=== PATIENT | female | born 1965 | race Caucasian/White ===

== ENCOUNTER → 2017-08-03 16:57 | Outpatient (CLI) | payer BC, SELFPAY | PROVIDERS: Family Provider Family Medicine; PCP Family Medicine; Visit Provider Family Medicine | DX: N39.0 Urinary tract infection, site not specified (principal) | CPT/HCPCS: 87077; 87086; 87088; 87186 ==

== ENCOUNTER → 2017-08-09 12:23 | Outpatient (CLI) | payer BC, SELFPAY ==
[2017-08-09 14:28] LABS: Erythrocyte Sedimentation Rate 6 mm/hr (0-30)
[2017-08-09 14:32] LABS: Absolute Lymphocyte Count 2.48 X10^3/ul (0.83-4.51); Absolute Neutrophil Count 3.8 X10^3/uL (2.0-7.7); Basophil# 0.04 X10^3/uL; Basophil% 0.6 % (0-1); CRP < 2.90 mg/L (0.0-3.0); Eosinophil# 0.15 X10^3/uL; Eosinophils% 2.1 % (0-5); Lymphocyte # 2.48 X10^3/ul (4.0); Lymphocyte % 34.9 % (19-41); Mean Corp Hgb Conc 32.4 g/gl (32-36); Mean Corpuscular Volume 95.6 fL (81-99); Mean Platelet Vol. 9.8 fl (6.2-12.0); Monocyte# 0.64 X10^3/uL; Neutrophil # 3.78 X10^3/uL (2.7-7.7); Neutrophil % 53.3 % (47-70); Platelet Count 313 K/mm3 (150-450); RBC Distribution Width CV 12.8 % (11.6-14.6); RBC Distribution Width SD 43.1 fl (35.1-43.9); Red Blood Count 3.87 M/mm3 (4.2-5.4); White Blood Count 7.1 K/mm3 (4.4-11.0)
[2017-08-09 14:34] LABS: POSITIVE COUNT NO; POSITIVE DIFFERENTIAL NO; POSITIVE MORPHOLOGY NO
--- NOTE | 2017-08-09 16:30 | RAD_ITS ---
STUDY: X-RAY - LEFT KNEE REASON FOR EXAM: Female, 51 years old. Pain. TECHNIQUE: 2 view(s) of the knee. COMPARISON: None. FINDINGS: Normal visualized distal femur. Normal visualized proximal tibia and fibula. Normal proximal tibiofibular articulation. There is no demonstrated fracture. Normal medial femorotibial compartment. Normal lateral femorotibial compartment. Normal patellofemoral articulation. There is no demonstrated joint effusion. The soft tissue structures are unremarkable. RAD/Knee 1 or 2 Views IMPRESSION: Negative limited 2 view study of the knee. Electronically Signed: Samuel Loza MD at 23:08 EST , Service support ,
== END ==
PROVIDERS: Family Provider Family Medicine; PCP Family Medicine; Visit Provider Family Medicine
DX: A02.9 Salmonella infection, unspecified (principal); M89.8X6 Other specified disorders of bone, lower leg
CPT/HCPCS: 36415; 73560; 85025; 85652; 86140

== ENCOUNTER → 2017-09-07 14:02 | Outpatient (CLI) | payer BC, SELFPAY | PROVIDERS: Visit Provider Family Medicine | DX: N39.0 Urinary tract infection, site not specified (principal) | CPT/HCPCS: 87086; 87088 ==

== ENCOUNTER 2017-11-01 16:14 | Emergency (ER) | payer BC, OTHER, SELFPAY ==
[2017-11-01 16:15] VITALS: BP 103/71; PULSE 77; RESP 16; TEMP 36.8; O2SAT 96; BMI 26.6
[2017-11-01 16:19] VITALS: O2SAT 94
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
[2017-11-01] MEDS: Ondansetron ODT 4 MG Tablet PO (16:46)
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
[2017-11-01] MEDS: Ibuprofen 600 MG Tablet PO (18:06)
[2017-11-01 18:08] VITALS: BP 104/79; PULSE 71; RESP 18; O2SAT 97
== END 2017-11-01 18:10 | disposition home or self-care (01) ==
LOC: ED 17:26
PROVIDERS: Emergency Provider Emergency Medicine; Family Provider Family Medicine; PCP Family Medicine
DX: S16.1XXA Strain of muscle, fascia and tendon at neck level, initial encounter (principal); V43.52XA Car driver injured in collision with other type car in traffic accident, initial encounter; Y93.9 Activity, unspecified; Y92.410 Unspecified street and highway as the place of occurrence of the external cause; Y99.9 Unspecified external cause status
CPT/HCPCS: 72040; 99285

== ENCOUNTER → 2018-06-15 07:53 | Outpatient (CLI) | payer MEDICAID, SELFPAY ==
--- NOTE | 2018-06-15 08:01 | BI_ITS ---
MAMMOGRAPHY - BILATERAL SCREENING REASON FOR EXAM: Female, 52 years old. Routine annual screening examination. PERTINENT HISTORY: Grandmother with breast cancer. TECHNIQUE: Digital bilateral breast nanette (3D mammographic acquisition) in the CC and MLO projections. 2-D mediolateral oblique (MLO) and craniocaudad (CC) views of both breasts were obtained. CAD: Full Field Digital Mammography with Computer Added Detection was performed. COMPARISON: Comparison is made with prior study dated May 15, 2017 and January 21, 2016. FINDINGS: Breast Composition: The breasts are heterogeneously dense, which may obscure small masses. There are no dominant masses or suspicious calcifications. Stable small bilateral axillary lymph nodes. No other significant abnormalities are identified. There has been no significant change since the prior study. BI/SCREENING MAMM (CAD), BILAT IMPRESSION: Stable bilateral screening mammogram. Yearly follow-up mammogram recommended. (A) ASSESSMENT CATEGORY: BIRADS Category 2: Benign. A letter regarding these results will be sent to the patient by the facility within 30 days. Approximately 10% of breast cancers are not detected by mammography. A normal mammogram should not delay biopsy of a clinically suspicious abnormality. [id number] Electronically Signed: Jose Raul Willard MD at 9:35 EST Tel [phone], Service support ,
== END ==
PROVIDERS: Family Provider Family Medicine; PCP Family Medicine; Referring Provider Obstetrics & Gynecology; Visit Provider Obstetrics & Gynecology
DX: Z12.31 Encounter for screening mammogram for malignant neoplasm of breast (principal)
CPT/HCPCS: 77063; 77067

== ENCOUNTER → 2018-09-17 | Outpatient (CLI) | payer OTHER, SELFPAY ==
[2018-09-17 17:36] LABS: Absolute Neutrophil Count 2.9 X10^3/uL (2.0-7.7); Basophil# 0.03 X10^3/uL; Basophil% 0.5 % (0-1); Eosinophil# 0.15 X10^3/uL; Eosinophils% 2.3 % (0-5); Hematocrit 36.3 % (37-47); Hemoglobin 11.8 g/dl (12.0-15.0); Lymphocyte % 42.3 % (19-41); Mean Corp Hgb Conc 32.5 g/gl (32-36); Mean Corpuscular Volume 92.4 fL (81-99); Mean Platelet Vol. 9.2 fl (6.2-12.0); Monocyte# 0.63 X10^3/uL; Monocyte% 9.9 % (0-10); Neutrophil # 2.88 X10^3/uL (2.7-7.7); Platelet Count 241 K/mm3 (150-450); RBC Distribution Width CV 12.2 % (11.6-14.6); RBC Distribution Width SD 40.4 fl (35.1-43.9); Red Blood Count 3.93 M/mm3 (4.2-5.4); White Blood Count 6.4 K/mm3 (4.4-11.0)
[2018-09-17 17:40] LABS: POSITIVE COUNT NO; POSITIVE DIFFERENTIAL NO; POSITIVE MORPHOLOGY NO
[2018-09-17 17:54] LABS: ALB/GLOB Ratio 1.4 RATIO (0.9-2.4); AST(SGOT) 18 U/L (15-37); Alanine Aminotransfer ALT/SGPT 26 U/L (13-56); Alkaline Phosphatase 63 U/L (45-117); Anion Gap 6 (5-15); BUN 15 mg/dL (7-18); BUN/Creat Ratio 20.9 RATIO (10-20); Chloride 108 mmol/L (98-107); Cholesterol 162 mg/dL (200); Creatinine, Serum 0.72 mg/dL (0.55-1.02); EST Glomerular Filtration Rate 91 mL/min (>60); Est Glom Filt Rate - Afr Amer 110 mL/min (>60); Globulin 2.9 g/dL (2.2-4.2); Glucose 95 mg/dL (74-106); High Density Lipoprotein 32 mg/dL; Protein, Total 6.9 g/dL (6.4-8.2); Sodium Level 143 mmol/L (136-145)
== END | disposition home or self-care (01) ==
LOC: MFPLAB 16:41
PROVIDERS: Family Provider Family Medicine; PCP Family Medicine; Visit Provider Family Medicine
DX: Z00.00 Encounter for general adult medical examination without abnormal findings (principal); G43.909 Migraine, unspecified, not intractable, without status migrainosus
CPT/HCPCS: 36415; 80053; 82465; 83718; 85025

== ENCOUNTER 2018-10-03 07:40 | Day surgery (SDC) | payer BC, SELFPAY ==
[2018-10-03] VITALS (7 sets, daily range): BP systolic 103–121; BP diastolic 75–94; PULSE 69–85; RESP 16–19; TEMP 36.4–36.6; O2SAT 92–98; BMI 27.7
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
--- NOTE | 2018-10-03 08:45 | COLBX_PTH ---
PATIENT: JEAN GROSSMAN LOC: EN U#:[id number] AGE/SX: 52/F ROOM: RE10/03/[address]: Dr. Shelia Dominguez MD : 1965 BED: DIS: 10/03/2018 SPEC #: [id number] RECD: 10/03/18 13:37 STATUS: OBDULIA SP #: [id number] MONIKA: 10/03/18 08:[address]: Shelia Dominguez DEPT: SURGICAL PATHOLOGY RECD BY: Ross Gonzalez ENTERED: 10/03/18 13:41 SP TYPE: COLON BX OTHR DR: Dr. Kev Cheng MD Tissues: A - Descending colon B - Descending colon Procedures: Surgery Specimen Level IV HEADER OPERATION: Colonoscopy - open access (MAC) PRE-OP DIAGNOSIS: Screening TISSUE SUBMITTED: A - Proximal descending polyp, B - Biopsy of mid descending polyp MICROSCOPIC DIAGNOSIS A. Proximal descending colon polyp, biopsy: Tubular adenoma. B. Mid descending colon polyp, biopsy: Tubular adenoma. ANGELITO:abdirizak 10/04/18 MICROSCOPIC DESCRIPTION Slides are reviewed. GROSS DESCRIPTION A - Received in fixative is one container labeled with the patient's name and designated proximal descending polyp. The specimen consists of one irregular fragment of light regan soft tissue that measures 0.3 x 0.3 x 0.2 cm. The specimen is totally submitted in one cassette. B - Received in fixative is one container labeled with the patient's name and designated biopsy of mid descending polyp. The specimen consists of one irregular fragment of light regan soft tissue mixed with a small amount of fecal material that measures 0.3 x 0.2 x 0.1 cm. The specimen is totally submitted in one cassette. / ANGELITO:abdirizak 10/03/18 TC:1 CPT: 68856 x2
--- NOTE | 2018-10-03 09:43 | OP.ENDO_ITS ---
10/03/2018 Kev Cheng [address] [place] [address] Re : Colonoscopy procedure for Yumiko Singh Dear Dr. Cheng This procedure was performed on Wednesday, October 03, 2018. My impressions and recommendations are as follows: Impressions : - One 4 to 7 mm polyp in the proximal descending colon, removed with a hot snare. Resected and retrieved. - One less than 5 mm polyp in the mid descending colon, removed with a cold biopsy forceps. Resected and retrieved. Recommendations : - Discharge patient to home. - High fiber diet. - Continue present medications. - Await pathology results. - Repeat colonoscopy in 1 year because the bowel preparation was poor. Recommend 2 day prep- magnesium citrate first day and then miralax dulcolax split prep the second with 2 days of clears. My findings are described in the full procedure note, which is enclosed. If I can be of further assistance, please feel free to contact me at Doctor phone number(s): , Work: . Sincerely, MD Shelia Garrett MD 10/03/2018 9:43:03 AM This report has been signed electronically.
== END 2018-10-03 10:24 | disposition home or self-care (01) ==
LOC: EN 07:40 → AC 07:41
PROVIDERS: Family Provider Family Medicine; PCP Family Medicine; Referring Provider Surgery; Visit Provider Surgery
PROC: 0DJD8ZZ Inspection of Lower Intestinal Tract, Via Natural or Artificial Opening Endoscopic (ICD-10-PCS; CPT 45378; principal; 2018-10-03 08:40)
DX: Z12.11 Encounter for screening for malignant neoplasm of colon (principal); D12.4 Benign neoplasm of descending colon
CPT/HCPCS: 45380; 45385; 88305; J7120; J2405

== ENCOUNTER 2018-10-31 15:30 | Outpatient (RCR) | payer BC, SELFPAY ==
[2018-10-03 07:59] VITALS: BMI 27.7
--- NOTE | 2018-10-04 09:17 | HP.PTEVAL ---
Patient's Visit Information JEAN GROSSMAN is a 52 year old F referred to Physical Therapy by Kev Cheng MD with a diagnosis of PLANTARFASCITIS. Date of Evaluation: 10/04/18 Physical Therapist: Zoltan Canchola PT, Cert MDT, OCS - Visit Plan Frequency: 2x /Week Duration: 4 Weeks Plan: INTERVENTIONS TO INCLUDE MANUAL THERAPY STM/HAWK TO PF,STICK ROLL CALF,US /CP. STRETCHING - Subjective Findings: This 52 y/o female presnets to physical therapy with with plantar fascitis right worse than left. Patient symptoms where inscidous onset 6 months ago . Symptom became more constant located on planta calcaeous. Patient seen DR recommended PT . Also patient purchused over counter orthotics . Aggravating factors in morning barefeet,standing,extending walking. Allevating factors orthotics help some. Denioes parathesia/tingling. No x-rays.Patient symptoms affects QOL and function. 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 SOCIAL: - Pain Right Foot Pain Intensity (Out of 10): 7 Pain Intensity Range: 10 Left Foot Pain Intensity (Out of 10): 4 Pain Intensity Range: 10 - Objective POSTURE: frontal plane mechanics WFL. PALPATION: tender calcaneal insertion and plantarfascia,G-S. GAIT: normal tucker. NEURO: intact. AROM: dorsiflexion 0 degrees,plantarflexion 65 degrees,inversion 40 degrees,eversion 10 degrees,. MMT: DF/PF,EV/IN 4/5. G-S FLEXABLITY: mild/mod tight - Goals Goal 1:: Independant with HEP Goal Time Frame: 4-6 Weeks Goal 2:: Decrease pain by 70% or greater to improve gait. Goal Time Frame: 4-6 Weeks Goal 3:: Noramilize gait without pain Goal Time Frame: 4-6 Weeks Goal 4:: Improve LFES sore by 8-10 points to improve QOL. Goal Time Frame: 4-6 Weeks Goal 5:: Patuient be able to perform ADL's and job demands with jeffrey limitations Goal Time Frame: 4-6 Weeks - Rehabilitation Potential Physical Therapy Diagnosis: This patient has bilateral plantarfascia pain right worse than with tenderness ,tightness calf/plantarsacia affects walking/standing impairs housework/job. Rehabilitation Potential: Good - Anticipated Interventions Patient/Client Instruction: Educate patient on: Condition, Plan of Care For the Purpose of:: To decrease pain, To increase ROM, To improve muscle performance and motor function, To improve ability to perform ADL's, To increase tolerance to activity/condition/position, To improve ability of physical actions for home/community/work/leisure, To improve health of tissue, To decrease soft tissue restriction, To increase flexibility/ROM, To improve ability to perform tasks related to life management Therapeutic Exercise to Include: Strength training, Flexibilty training, Passive ROM, Active ROM Comment: FOOT For the Purpose of:: To decrease pain, To increase ROM, To improve nutrient delivery to tissue, To increase oxygenation perfusion, To improve muscle performance and motor function, To increase tolerance to activity/condition/position, To improve ability of physical actions for home/community/work/leisure, To improve gait and locomotor functions, To improve health of tissue, To decrease soft tissue restriction, To increase flexibility/ROM Manual Therapy Techniques to Include: Mobilization, Soft tissue mobilization Comment: PLANTAR FASCIA For the Purpose of:: To decrease pain, To increase ROM, To improve muscle performance and motor function, To increase tolerance to activity/condition/position, To improve ability of physical actions for home/community/work/leisure, To improve health of tissue, To decrease soft tissue restriction, To increase flexibility/ROM, To improve ability to perform tasks related to life management TENS: Yes IF ES: Yes Thermo therapy (hot pack): Yes Ultrasound (thermal/non thermal): Yes For the Purpose of:: To decrease pain, To increase ROM, To improve muscle performance and motor function, To increase tolerance to activity/condition/position, To improve ability of physical actions for home/community/work/leisure, To improve gait and locomotor functions, To improve health of tissue, To decrease soft tissue restriction Thank you for the opportunity to evaluate your patient. For Medicare and Medicare HMO plans, please review the plan of care and approve it. It will need to be FAXED BACK to us at [phone] for Medicare purposes. For Medicare only, by signing this I certify the plan of care. Please let me know if there are questions or concerns regarding this plan of care. Physician Signature: Date:
--- NOTE | 2019-01-01 09:12 | HP.PTDCSUM ---
HP - PT D/C Summary It has been my pleasure to treat JEAN GROSSMAN under orders from Kev Cheng MD, for the diagnosis of PLANTARFASCITIS for a total of 7 visit(s). Discharge Date: Please see the following information for a summary of their discharge status. - Subjective Subjective: Not much better pain is about the same - Pain Right Foot Pain Intensity (Out of 10): 8 Left Foot Pain Intensity (Out of 10): 6 - Overall Improvement % Improvement: 50 - Objective Objective/Function: POSTURE: WFL. PALAPTION: plantrfascia right > than left. GAIT: mild decrease stance time. MMT:4/5. AROM: WFL - Goals Goal 1:: Independant with HEP Goal 2:: Decrease pain by 70% or greater to improve gait. Goal 3:: Noramilize gait without pain Goal 4:: Improve LFES sore by 8-10 points to improve QOL. Goal 5:: Patuient be able to perform ADL's and job demands with jeffrey limitations - Plan Plan: RTD - D/C Information If there are questions or concerns regarding this patient's physical therapy, please feel free to call me at [phone]. Thank you for the referral of this patient. Sincerely, Zoltan Canchola, PT, Cert MDT, OCS
--- NOTE | 2019-01-01 09:14 | HP.PTDCSUM ---
HP - PT D/C Summary It has been my pleasure to treat JEAN GROSSMAN under orders from Kev Cheng MD, for the diagnosis of PLANTARFASCITIS for a total of 7 visit(s). Discharge Date: Please see the following information for a summary of their discharge status. - Subjective Subjective: Not much better pain is about the same - Pain Right Foot Pain Intensity (Out of 10): 8 Left Foot Pain Intensity (Out of 10): 6 - Objective Objective/Function: POSTURE: WFL. PALAPTION: plantrfascia right > than left. GAIT: mild decrease stance time. MMT:4/5. AROM: WFL - Goals Goal 1:: Independant with HEP Goal 2:: Decrease pain by 70% or greater to improve gait. Goal 3:: Noramilize gait without pain Goal 4:: Improve LFES sore by 8-10 points to improve QOL. Goal 5:: Patuient be able to perform ADL's and job demands with jeffrey limitations - Plan Plan: RTD - D/C Information If there are questions or concerns regarding this patient's physical therapy, please feel free to call me at [phone]. Thank you for the referral of this patient. Sincerely, Zoltan Canchola, PT, Cert MDT, OCS
== END 2018-10-31 19:00 | disposition home or self-care (01) ==
LOC: PT 15:30
PROVIDERS: Family Provider Family Medicine; PCP Family Medicine; Visit Provider Family Medicine
DX: M72.2 Plantar fascial fibromatosis (principal)
CPT/HCPCS: 97035; 97110; 97140; 97162

== ENCOUNTER → 2019-02-26 16:57 | Outpatient (CLI) | payer BC, SELFPAY ==
[2018-12-04 08:35] VITALS: BMI 27.3
--- NOTE | 2019-02-26 17:30 | MRI_ITS ---
STUDY: MRI BRAIN WITHOUT CONTRAST REASON FOR EXAM: Female, 53 years old. Migraines. Left eye pressure and pain. TECHNIQUE: Standardized multiplanar fat and water weighted pulse sequences were obtained. COMPARISON: 08/28/2014 MRI brain. FINDINGS: Normal size of the ventricles and extra-axial spaces for the patient's age. Normal white matter tracts of the supratentorial brain. Normal bilateral basal ganglia. Normal thalami. There is no extra-axial fluid accumulation. Normal flow voids within the major intracranial circulation suggesting patency by spin echo criteria. Normal sella turcica, pituitary gland, infundibular stalk, optic chiasm and hypothalamus. Normal tectal plate and pineal gland. Normal midbrain, gin and medulla. Normal cerebellum. Normal basal cisterns. Fluid signal in the left mastoid air cells, slightly decreased compared to the previous MRI. Normal bilateral internal auditory canals. No demonstrated orbital abnormality, within the constraints of a routine brain study. Mild mucosal thickening medial aspect right frontal sinus. No paranasal sinus air-fluid levels. Paranasal sinuses otherwise patent. Normal calvarium and skull base. Normal visualized soft tissue structures. Normal visualized upper cervical spine. MRI/Brain without Contrast IMPRESSION: Normal noncontrast MRI appearance of the brain. Chronic versus recurrent left mastoid opacification, decreased compared to prior. Please correlate for tenderness etc. Electronically Signed: Ilya Brandt, at 21:09 EDT Tel , Service support ,
== END ==
PROVIDERS: Family Provider Family Medicine; PCP Family Medicine; Referring Provider Psychiatry & Neurology Neurology; Visit Provider Psychiatry & Neurology Neurology
DX: G43.719 Chronic migraine without aura, intractable, without status migrainosus (principal)
CPT/HCPCS: 70551

== ENCOUNTER → 2019-03-15 15:40 | Outpatient (CLI) | payer BC, SELFPAY ==
[2018-12-04 08:35] VITALS: BMI 27.3
[2019-03-15 18:00] LABS: Anion Gap 9 (5-15); BUN 21 mg/dL (7-18); BUN/Creat Ratio 22.1 RATIO (10-20); Calcium,Total 8.7 mg/dL (8.5-10.1); Chloride 107 mmol/L (98-107); Creatinine, Serum 0.95 mg/dL (0.55-1.02); EST Glomerular Filtration Rate 65 mL/min (>60); Est Glom Filt Rate - Afr Amer 79 mL/min (>60); Glucose 123 mg/dL (74-106); Magnesium 2.1 mg/dL (1.6-2.6); Potassium 3.9 mmol/L (3.5-5.1); Sodium Level 141 mmol/L (136-145)
[2019-03-18 16:41] LABS: Ferritin 24 ng/mL (8-252)
== END ==
PROVIDERS: Family Provider Family Medicine; PCP Family Medicine; Referring Provider Family Medicine; Visit Provider Family Medicine
DX: R25.2 Cramp and spasm (principal)
CPT/HCPCS: 36415; 80048; 82728; 83735

== ENCOUNTER → 2019-07-08 16:19 | Outpatient (CLI) | payer BC, SELFPAY ==
[2019-07-08 15:33] VITALS: BMI 27.3
[2019-07-08 16:30] LABS: Mucous, Urine 0 SEEN /hpf (<or=2+); Red Blood Cells-Urine 0 SEEN /hpf (0-5)
[2019-07-08 18:30] LABS: Color, Urine Yellow (Yellow); Glucose, Dipstick Normal (Normal); Ketone-Dipstick Negative (Negative); Leukocyte Esterase-Dipstick 500 /ul (Negative); Nitrite-Dipstick Negative (Negative); Occult Blood-Urine 10 /ul (Negative); Protein-Dipstick Negative (Negative); Urine Bilirubin Dipstick Negative (Negative); Urine Clarity Clear (Clear); Urine Urobilinogen Normal (Normal)
[2019-07-08 18:42] LABS: Bacteria 1+ /hpf (None Seen); Squamous Epithelial Cells - UA 5-10 SEEN /hpf (5-10); White Blood Cells 10-25 SEEN /hpf (0-5)
== END ==
PROVIDERS: PCP Family Medicine; Referring Provider Family Medicine; Visit Provider Family Medicine
DX: R93.9 Diagnostic imaging inconclusive due to excess body fat of patient (principal)
CPT/HCPCS: 81001; 87086; 87088; 87186

== ENCOUNTER → 2019-07-29 09:30 | Outpatient (CLI) | payer BC, SELFPAY ==
[2019-07-08 15:33] VITALS: BMI 27.3
--- NOTE | 2019-07-29 09:34 | BI_ITS ---
MAMMOGRAPHY - BILATERAL DIAGNOSTIC REASON FOR EXAM: Female, 53 years old. Left breast pain at the 3:00 area. PERTINENT HISTORY: Non-contributory. TECHNIQUE: Digital bilateral breast nanette (3D mammographic acquisition) in the CC and MLO projections. 2-D mediolateral oblique (MLO) and craniocaudad (CC) views of both breasts were obtained. CAD: Full Field Digital Mammography with Computer Added Detection was performed. COMPARISON: Comparison is made with prior examination dated June 15, 2018 and May 15, 2017. FINDINGS: Breast Composition: The breasts are heterogeneously dense, which may obscure small masses. There are no dominant masses or suspicious calcifications. Stable bilateral benign-appearing axillary lymph nodes. No other significant abnormalities are identified. There has been no significant change since the prior study. BI/DIAG MAMM W/CAD, BILAT IMPRESSION: Stable bilateral diagnostic mammogram. With the patient''s history of left breast pain at the 3:00 position, correlation with ultrasound is recommended. ASSESSMENT CATEGORY: BIRADS Category 0: Incomplete. Need additional imaging evaluation. A letter regarding these results will be sent to the patient by the facility within 30 days. Approximately 10% of breast cancers are not detected by mammography. A normal mammogram should not delay biopsy of a clinically suspicious abnormality. Electronically Signed: Jose Raul Willard, at 10:37 EST , Service support ,
--- NOTE | 2019-07-29 09:34 | US_ITS ---
STUDY: ULTRASOUND BREAST - LEFT REASON FOR EXAM: Female, 53 years old. Left breast pain and possible mass. TECHNIQUE: Axial and longitudinal images of the LEFT breast were performed with a high resolution ultrasound transducer. # OF IMAGES: 32 COMPARISON: Comparison is made with prior mammogram done earlier in the day. FINDINGS: LEFT Breast: There is an 8 mm x 8 mm x 5 mm benign appearing lymph node at the 1:00 position breast at 20 cm from nipple adjacent to the axilla. US/Breast Limited Unilateral IMPRESSION: Findings in keeping with an 8mm by 8mm by 5 mm benign lymph node in the axillary region of the breast. ASSESSMENT CATEGORY: BIRADS Category 2: Benign. A letter regarding these results will be sent to the patient by the facility within 30 days. Electronically Signed: Jose Raul Willard, at 15:48 EST , Service support ,
== END ==
PROVIDERS: PCP Family Medicine; Referring Provider Obstetrics & Gynecology; Visit Provider Obstetrics & Gynecology
DX: N63.20 Unspecified lump in the left breast, unspecified quadrant (principal)
CPT/HCPCS: 76642; 77062; 77066; G0279

== ENCOUNTER 2019-12-11 08:21 | Day surgery (SDC) | payer BC, SELFPAY ==
[2019-08-07 09:11] VITALS: BMI 27.3
[2019-12-11] VITALS (8 sets, daily range): BP systolic 84–112; BP diastolic 61–85; PULSE 56–72; RESP 16; TEMP 36.1–36.2; O2SAT 97–100; BMI 29.2
--- NOTE | 2019-12-11 | GASB_PTH ---
PATIENT: JEAN GROSSMAN LOC: EN U#:[id number] AGE/SX: 54/F ROOM: RE12/11/[address]: Dr. Shelia Dominguez MD : 1965 BED: DIS: 12/11/2019 SPEC #: [id number] RECD: 12/11/19 12:16 STATUS: OBDULIA SP #: [id number] MONIKA: 12/11/19 00:[address]: Shelia Dominguez DEPT: SURGICAL PATHOLOGY RECD BY: Cleveland Obrien ENTERED: 12/11/19 12:17 SP TYPE: Gastric Bx OTHR DR: Dr. Kev Cheng MD Tissues: A - Gastric mucous membrane B - Gastric mucous membrane C - Gastric mucous membrane D - Cecum, NOS E - Descending colon Procedures: Special Stain Group II Surgery Specimen Level IV Alcian Blue/PAS (control) HEADER OPERATION: Colonoscopy, EGD - open access (MAC) PRE-OP DIAGNOSIS: Colon CA, GERD TISSUE SUBMITTED: A - Antrum biopsy for histo and H. pylori, B - Gastric body biopsy for Histo and H. pylori, C - GE junction biopsy, D - Ileocecal valve biopsy, E - Descending colon polyp at 55 cm MICROSCOPIC DIAGNOSIS A. Antrum, biopsy: Mild gastritis. See microscopic description and comment. B. Gastric body, biopsy: Mild gastritis. See microscopic description and comment. C. GE junction, biopsy: A fragment of gastric mucosa with mild chronic inflammation. Intestinal metaplasia (goblet cell metaplasia) is not identified. See comment. D. Ileocecal valve, biopsy: A fragment of colonic mucosa, no pathologic diagnosis. E. Descending colon polyp, biopsy: Fragments of tubular adenoma. SJ:abdirizak 12/12/19 COMMENT A & B. The results of immunohistochemistry for Helicobacter pylori will be reported separately ([id number]). C. Alcian blue/PAS stain with matched control is used in the evaluation of the specimen. MICROSCOPIC DESCRIPTION Slides are reviewed. A & B. The specimen shows fragments of gastric mucosa with chronic inflammatory cell infiltrates in the lamina propria consisting of lymphocytes and plasma cells, consistent with mild chronic gastritis. GROSS DESCRIPTION A - Received in fixative is one container labeled with the patient's name and designated antrum biopsy. The specimen consists of one irregular fragment of light regan soft tissue that measures 0.5 x 0.3 x 0.1 cm. The specimen is totally submitted in one cassette. B - Received in fixative is one container labeled with the patient's name and designated gastric biopsy. The specimen consists of multiple irregular fragments of light regan soft tissue that in aggregate measure 0.3 x 0.2 x 0.1 cm. The specimen is totally submitted in one cassette. C - Received in fixative is one container labeled with the patient's name and designated GE junction biopsy. The specimen consists of one irregular fragment of light regan soft tissue that measures 0.2 x 0.2 x 0.1 cm. The specimen is totally submitted in one cassette. D - Received in fixative is one container labeled with the patient's name and designated ileocecal valve biopsy. The specimen consists of one irregular fragment of light regan soft tissue that measures 0.2 x 0.2 x 0.1 cm. The specimen is totally submitted in one cassette. E - Received in fixative is one container labeled with the patient's name and designated descending colon polyp. The specimen consists of multiple irregular fragments of light regan soft tissue that in aggregate measure 1 x 0.6 x 0.2 cm. The specimen is totally submitted in one cassette. / AM:abdirizak 12/11/19 TC:1 CPT: 08841 x5, 53307
[2019-12-11] MEDS: Lactated Ringers 1,000 ML 100 ML IV (08:59)
--- NOTE | 2019-12-11 09:30 | IMM_PTH ---
PATIENT: JEAN GROSSMAN LOC: EN U#:[id number] AGE/SX: 54/F ROOM: RE12/11/[address]: Dr. Shelia Dominguez MD : 1965 BED: DIS: 12/11/2019 SPEC #: [id number] RECD: 12/11/19 13:41 STATUS: OBDULIA RESumeet #: [id number] MONIKA: 12/11/19 09:[address]: Shelia Dominguez DEPT: IMMUNOHISTOCHEMISTRY RECD BY: Hanna Boss ENTERED: 12/11/19 13:42 SP TYPE: IMMUNO OTHR DR: Dr. Kev Cheng MD Tissues: A - Stomach, NOS B - Stomach, NOS Procedures: H Pylori (initial) PHYSICIAN & [place] [address] SPECIMEN INFORMATION: Tissue Source: A - Antrum biopsy, B - Gastric body biopsy Clinical Info: Colon CA, GERD Specimen Number: [id number] A & B CPT code: 73792 x2 METHODOLOGY: Deparaffinized sections of prefer/formalin-fixed tissue or PAP/DQ stained slides are incubated with monoclonal/polyclonal antibodies/oligonucleotide probes. Localization is made via biotin free immunoperoxidase method. Appropriate controls are performed and reacted as expected. Results on target cell population are indicated in the following table: RESULTS: ANTIBODY / CLONE RESULT Block A H Pylori (polyclonal) negative Block B H Pylori (polyclonal) negative These tests were developed and their performance characteristics determined by [facility]. They may not have been cleared or approved by the U.S. Food and Drug Administration. The FDA has determined that such clearance or approval is not necessary. The above immunohistochemical/dualISH markers are ordered and reviewed by the Pathologist. INTERPRETATION: A. Antrum, biopsy: Negative for Helicobacter pylori organisms. B. Gastric body, biopsy: Negative for Helicobacter pylori organisms. SJ:abdirizak 12/12/19
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
--- NOTE | 2019-12-11 10:36 | OP.EGD_ITS ---
Patient Name: Yumiko Singh Procedure Date: 12/11/2019 9:40 AM Date of : 1965 Age: 54 Procedure: Upper GI endoscopy Indications: Heartburn Providers: Shelia Dominguez MD Referring MD: Kev Cheng Medicines: Monitored Anesthesia Care Patient Profile: This is a 54 year old female. Complications: No immediate complications. Procedure: Pre-Anesthesia Assessment: - Prior to the procedure, a History and Physical was performed, and patient medications and allergies were reviewed. The patient's tolerance of previous anesthesia was also reviewed. The risks and benefits of the procedure and the sedation options and risks were discussed with the patient. All questions were answered, and informed consent was obtained. Prior Anticoagulants: The patient has taken no previous anticoagulant or antiplatelet agents. ASA Grade Assessment: Per anesthesia. After reviewing the risks and benefits, the patient was deemed in satisfactory condition to undergo the procedure. After obtaining informed consent, the endoscope was passed under direct vision. Throughout the procedure, the patient's blood pressure, pulse, and oxygen saturations were monitored continuously. The gastroscope was introduced through the mouth, and advanced to the second part of duodenum. The upper GI endoscopy was accomplished without difficulty. The patient tolerated the procedure well. Scope In: 9:56:01 AM Scope Out: 10:02:26 AM Total Procedure Duration Time 0 hours 6 minutes 25 seconds Findings: The Z-line was variable and was found 40 cm from the incisors. Biopsies were taken with a cold forceps for histology. A few localized, less than 5 mm non-bleeding erosions were found in the gastric body. There were no stigmata of recent bleeding. Biopsies were taken with a cold forceps for histology. Biopsies were taken with a cold forceps for Helicobacter pylori cultures. Mildly erythematous mucosa without bleeding was found in the gastric antrum. Biopsies were taken with a cold forceps for histology. Biopsies were taken with a cold forceps for Helicobacter pylori cultures. The examined duodenum was normal. The cardia and gastric fundus were normal on retroflexion. Impression: - Z-line variable, 40 cm from the incisors. Biopsied. - Non-bleeding erosive gastropathy. Biopsied. - Erythematous mucosa in the antrum. Biopsied. - Normal examined duodenum. Recommendation: - Await pathology results. - Discharge patient to home. - Resume previous diet. - Use Protonix (pantoprazole) 40 mg PO daily. - Continue present medications. Procedure Code(s): --- Professional --- 10660, Esophagogastroduodenoscopy, flexible, transoral; with biopsy, single or multiple Diagnosis Code(s): --- Professional --- K22.8, Other specified diseases of esophagus K31.89, Other diseases of stomach and duodenum R12, Heartburn CPT copyright 2017 [employer]. All rights reserved. The codes documented in this report are preliminary and upon combination presser review may be revised to meet current compliance requirements. MD Shelia Garrett MD 12/11/2019 10:36:17 AM This report has been signed electronically. Number of Addenda: 0 Note Initiated On: 12/11/2019 9:40 AM
--- NOTE | 2019-12-11 10:36 | OP.CCLET_ITS ---
12/11/2019 Kev Cheng [address] [place] [address] Re : Upper GI endoscopy procedure for Yumiko Singh Dear Dr. Cheng This procedure was performed on Wednesday, December 11, 2019. My impressions and recommendations are as follows: Impressions : - Z-line variable, 40 cm from the incisors. Biopsied. - Non-bleeding erosive gastropathy. Biopsied. - Erythematous mucosa in the antrum. Biopsied. - Normal examined duodenum. Recommendations : - Await pathology results. - Discharge patient to home. - Resume previous diet. - Use Protonix (pantoprazole) 40 mg PO daily. - Continue present medications. My findings are described in the full procedure note, which is enclosed. If I can be of further assistance, please feel free to contact me at Doctor phone number(s): , Work: . Sincerely, MD Shelia Garrett MD 12/11/2019 10:36:17 AM This report has been signed electronically.
--- NOTE | 2019-12-11 10:42 | OP.COLON_ITS ---
Patient Name: Yumiko Singh Procedure Date: 12/11/2019 10:04 AM Date of : 1965 Age: 54 Procedure: Colonoscopy Indications: Screening for colorectal malignant neoplasm Providers: Shelia Dominguez MD Referring MD: Kev Cheng Medicines: Monitored Anesthesia Care Patient Profile: Last Colonoscopy: September 2018--poor prep in descending/sigmoid with solid stool. This is a 54 year old female. Complications: No immediate complications. Procedure: Pre-Anesthesia Assessment: - Prior to the procedure, a History and Physical was performed, and patient medications and allergies were reviewed. The patient's tolerance of previous anesthesia was also reviewed. The risks and benefits of the procedure and the sedation options and risks were discussed with the patient. All questions were answered, and informed consent was obtained. Prior Anticoagulants: The patient has taken no previous anticoagulant or antiplatelet agents. ASA Grade Assessment: Per anesthesia. After reviewing the risks and benefits, the patient was deemed in satisfactory condition to undergo the procedure. After I obtained informed consent, the scope was passed under direct vision. Throughout the procedure, the patient's blood pressure, pulse, and oxygen saturations were monitored continuously. The pediatric colonoscope was introduced through the anus and advanced to the terminal ileum. The colonoscopy was performed without difficulty. The patient tolerated the procedure well. The quality of the bowel preparation was good. Scope In: 10:05:39 AM Scope Withdrawal Time 0 hours 16 minutes 47 seconds Scope Out: 10:31:26 AM Total Procedure Duration Time 0 hours 25 minutes 47 seconds Findings: The perianal and digital rectal examinations were normal. A 5 mm polyp was found in the descending colon. The polyp was semi-pedunculated. The polyp was removed with a hot snare. Resection and retrieval were complete. The terminal ileum appeared normal. A localized area of mildly erythematous mucosa was found at the ileocecal valve. Biopsies were taken with a cold forceps for histology. Impression: - One 5 mm polyp in the descending colon, removed with a hot snare. Resected and retrieved. - The examined portion of the ileum was normal. - Erythematous mucosa at the ileocecal valve. Biopsied. Recommendation: - Discharge patient to home. - Resume previous diet. - Continue present medications. - Await pathology results. - Repeat colonoscopy in 3 - 5 years for surveillance based on pathology results. Procedure Code(s): --- Professional --- 59285, PT, Colonoscopy, flexible; with removal of tumor(s), polyp(s), or other lesion(s) by snare technique 49355, 59, Colonoscopy, flexible; with biopsy, single or multiple CPT copyright 2017 [employer]. All rights reserved. The codes documented in this report are preliminary and upon siderographer review may be revised to meet current compliance requirements. MD Shelia Garrett MD 12/11/2019 10:41:53 AM This report has been signed electronically. Number of Addenda: 0 Note Initiated On: 12/11/2019 10:04 AM
--- NOTE | 2019-12-11 10:42 | OP.CCLET_ITS ---
12/11/2019 Kev Cheng [address] [place] [address] Re : Colonoscopy procedure for Yumiko Singh Dear Dr. Cheng This procedure was performed on Wednesday, December 11, 2019. My impressions and recommendations are as follows: Impressions : - One 5 mm polyp in the descending colon, removed with a hot snare. Resected and retrieved. - The examined portion of the ileum was normal. - Erythematous mucosa at the ileocecal valve. Biopsied. Recommendations : - Discharge patient to home. - Resume previous diet. - Continue present medications. - Await pathology results. - Repeat colonoscopy in 3 - 5 years for surveillance based on pathology results. My findings are described in the full procedure note, which is enclosed. If I can be of further assistance, please feel free to contact me at Doctor phone number(s): , Work: . Sincerely, MD Shelia Garrett MD 12/11/2019 10:41:53 AM This report has been signed electronically.
== END 2019-12-11 11:30 | disposition home or self-care (01) ==
LOC: EN 08:22 → AC 08:23
PROVIDERS: Anesthesiology; PCP Family Medicine; Referring Provider Family Medicine; Visit Provider Surgery
PROC: 0DJD8ZZ Inspection of Lower Intestinal Tract, Via Natural or Artificial Opening Endoscopic (ICD-10-PCS; CPT 45378; principal; 2019-12-11 09:25)
DX: Z12.11 Encounter for screening for malignant neoplasm of colon (principal); K21.9 Gastro-esophageal reflux disease without esophagitis; D12.4 Benign neoplasm of descending colon; K29.70 Gastritis, unspecified, without bleeding; K59.00 Constipation, unspecified; K22.8 Other specified diseases of esophagus; K31.89 Other diseases of stomach and duodenum; R12 Heartburn; Z86.010 Personal history of colon polyps; Z90.710 Acquired absence of both cervix and uterus; Z88.2 Allergy status to sulfonamides
CPT/HCPCS: 43239; 45380; 45385; 87635; 88305; 88313; 88342; J7120; J2405; U0003

== ENCOUNTER → 2020-05-04 17:06 | Outpatient (CLI) | payer BC, SELFPAY ==
--- NOTE | 2020-05-04 17:08 | RAD_ITS ---
STUDY: X-RAY - LUMBAR SPINE REASON FOR EXAM: Female, 54 years old. spondylolisthesis TECHNIQUE: 5 view(s) of the lumbar spine were obtained. COMPARISON: None FINDINGS: Normal lumbar lordosis. There is a levoscoliosis of the lumbar spine. There is a normal alignment of the vertebrae. There is multilevel endplate spondylosis of the lumbar vertebrae. There is multi-level degenerative disc disease with multi-level disc space narrowing most conspicuous at L2-L3 and L3-L4. There is no demonstrated fracture. There is no demonstrated spondylolysis of the pars interarticulares. The soft tissue structures are unremarkable. RAD/L/S Spine Min 4 Views IMPRESSION: Degenerative changes predominantly at L2-L3 and L3-L4 Electronically Signed: David Macias MD (Brooks) at 11:29 EST , Service support ,
== END ==
PROVIDERS: PCP Family Medicine; Referring Provider Family Medicine; Visit Provider Family Medicine
DX: M43.17 Spondylolisthesis, lumbosacral region (principal)
CPT/HCPCS: 72110

== ENCOUNTER → 2020-05-05 07:50 | Outpatient (CLI) | payer BC, SELFPAY ==
[2020-05-05 10:23] LABS: Absolute Lymphocyte Count 2.82 X10^3/uL (0.83-4.51); Absolute Neutrophil Count 2.8 X10^3/uL (2.0-7.7); Basophil# 0.05 X10^3/uL; Basophil% 0.8 % (0-1); Eosinophils% 1.6 % (0-5); Hematocrit 38.2 % (37-47); Hemoglobin 11.9 g/dL (12.0-15.0); Lymphocyte # 2.82 X10^3/ul (4.0); Lymphocyte % 43.8 % (19-41); Mean Corp Hgb Conc 31.2 g/dL (32-36); Mean Corpuscular Hgb 29.8 pg (27.0-32.0); Mean Corpuscular Volume 95.7 fL (81-99); Mean Platelet Vol. 9.2 fl (6.2-12.0); Monocyte# 0.63 X10^3/uL; Monocyte% 9.8 % (0-10); NRBC Flagged by Analyzer 0 % (0-5); Neutrophil # 2.83 X10^3/uL (2.7-7.7); Neutrophil % 43.8 % (47-70); Platelet Count 316 K/mm3 (150-450); RBC Distribution Width CV 12.8 % (11.6-14.6); RBC Distribution Width SD 45.5 fl (35.1-43.9); Red Blood Count 3.99 M/mm3 (4.2-5.4); White Blood Count 6.4 K/mm3 (4.4-11.0)
[2020-05-05 10:43] LABS: ALB/GLOB Ratio 1.1 RATIO (0.9-2.4); AST(SGOT) 20 U/L (15-37); Alanine Aminotransfer ALT/SGPT 31 U/L (13-56); Albumin, Serum 3.7 g/dL (3.2-5.0); Alkaline Phosphatase 59 U/L (45-117); Anion Gap 5 (5-15); BUN 17 mg/dL (7-18); BUN/Creat Ratio 20.4 RATIO (10-20); Calcium,Total 8.8 mg/dL (8.5-10.1); Chloride 107 mmol/L (98-107); Creatinine, Serum 0.83 mg/dL (0.55-1.02); EST Glomerular Filtration Rate 76 mL/min (>60); Est Glom Filt Rate - Afr Amer 91 mL/min (>60); Ferritin 4 ng/mL (8-252); Globulin 3.5 g/dL (2.2-4.2); Glucose 90 mg/dL (74-106); Protein, Total 7.2 g/dL (6.4-8.2); Sodium Level 140 mmol/L (136-145)
== END ==
PROVIDERS: PCP Family Medicine; Referring Provider Family Medicine; Visit Provider Family Medicine
DX: D64.9 Anemia, unspecified (principal); R25.2 Cramp and spasm
CPT/HCPCS: 36415; 80053; 82728; 85025

== ENCOUNTER → 2021-02-27 07:07 | Outpatient (CLI) | payer OTHER, SELFPAY ==
[2021-02-27 07:56] LABS: Hemoglobin 12.1 g/dL (12.0-15.0); Mean Corp Hgb Conc 32.7 g/dL (32-36); Mean Corpuscular Hgb 32.4 pg (27.0-32.0); Mean Corpuscular Volume 98.9 fL (81-99); Platelet Count 280 K/mm3 (150-450); RBC Distribution Width CV 12.7 % (11.6-14.6); Red Blood Count 3.74 M/mm3 (4.2-5.4); White Blood Count 5.7 K/mm3 (4.4-11.0)
[2021-02-27 09:18] LABS: AST(SGOT) 26 U/L (15-37); Alanine Aminotransfer ALT/SGPT 41 U/L (13-56); Albumin, Serum 3.5 g/dL (3.2-5.0); Alkaline Phosphatase 53 U/L (45-117); Anion Gap 2 (5-15); BUN 18 mg/dL (7-18); BUN/Creat Ratio 21.5 RATIO (10-20); Calcium,Total 8.7 mg/dL (8.5-10.1); Chloride 107 mmol/L (98-107); Cholesterol 180 mg/dL (200); Creatinine, Serum 0.84 mg/dL (0.55-1.02); EST Glomerular Filtration Rate 75 mL/min (>60); Est Glom Filt Rate - Afr Amer 91 mL/min (>60); Ferritin 10 ng/mL (8-252); Globulin 3.4 g/dL (2.2-4.2); Glucose 103 mg/dL (74-106); High Density Lipoprotein 32 mg/dL; Potassium 3.8 mmol/L (3.5-5.1); Protein, Total 6.9 g/dL (6.4-8.2); Sodium Level 140 mmol/L (136-145); Triglycerides 237 mg/dL; Very Low Density Lipoprotein 47 mg/dL (5-40)
[2021-03-01 09:01] LABS: Vitamin B12 325 pg/mL (211-911)
== END ==
PROVIDERS: PCP Family Medicine; Visit Provider Family Medicine
DX: Z00.00 Encounter for general adult medical examination without abnormal findings (principal); D64.9 Anemia, unspecified; E72.12 Methylenetetrahydrofolate reductase deficiency; R68.2 Dry mouth, unspecified
CPT/HCPCS: 36415; 80053; 80061; 82607; 82728; 82746; 85027; 86038

== ENCOUNTER → 2021-03-08 07:05 | Outpatient (CLI) | payer OTHER, SELFPAY ==
--- NOTE | 2021-03-08 07:08 | BI_ITS ---
MAMMOGRAPHY - BILATERAL SCREENING REASON FOR EXAM: Female, 55 years old. Routine annual screening examination. PERTINENT HISTORY: Grandmother with breast cancer. Aunt with breast cancer. TECHNIQUE: Digital bilateral breast nanette (3D mammographic acquisition) in the CC and MLO projections. 2-D mediolateral oblique (MLO) and craniocaudad (CC) views of both breasts were obtained. CAD: Full Field Digital Mammography with Computer Added Detection was performed. COMPARISON: Comparison is made with prior examination dated 07/29/2019 and 06/15/2018. FINDINGS: Breast Composition: The breasts are heterogeneously dense, which may obscure small masses. There are no dominant masses or suspicious calcifications. Stable benign-appearing bilateral axillary lymph nodes. No other significant abnormalities are identified. There has been no significant change since the prior study. BI/SCREENING MAMM (CAD), BILAT IMPRESSION: Stable bilateral screening mammogram. Yearly follow-up mammogram recommended. (A) ASSESSMENT CATEGORY: BIRADS Category 2: Benign. A letter regarding these results will be sent to the patient by the facility within 30 days. Approximately 10% of breast cancers are not detected by mammography. A normal mammogram should not delay biopsy of a clinically suspicious abnormality. [id number] Electronically Signed: Jose Raul Willard MD at 8:39 EDT , Service support ,
== END ==
PROVIDERS: PCP Family Medicine; Referring Provider Family Medicine; Visit Provider Family Medicine
DX: Z12.31 Encounter for screening mammogram for malignant neoplasm of breast (principal)
CPT/HCPCS: 77067

== ENCOUNTER → 2021-03-31 12:11 | Outpatient (CLI) | payer OTHER, SELFPAY ==
[2021-03-31 15:08] LABS: Absolute Lymphocyte Count 3.07 X10^3/uL (0.83-4.51); Absolute Neutrophil Count 2.9 X10^3/uL (2.0-7.7); Basophil# 0.04 X10^3/uL; Basophil% 0.6 % (0-1); Eosinophil# 0.18 X10^3/uL; Eosinophils% 2.6 % (0-5); Hematocrit 37.2 % (37-47); Hemoglobin 12.5 g/dL (12.0-15.0); Lymphocyte # 3.07 X10^3/ul (0.83-4.51); Lymphocyte % 44.7 % (19-41); Mean Corp Hgb Conc 33.6 g/dL (32-36); Mean Corpuscular Hgb 32.6 pg (27.0-32.0); Mean Corpuscular Volume 96.9 fL (81-99); Mean Platelet Vol. 9.3 fl (6.2-12.0); Monocyte# 0.64 X10^3/uL; Monocyte% 9.3 % (0-10); NRBC Flagged by Analyzer 0 % (0-5); Neutrophil # 2.93 X10^3/uL (2.7-7.7); Neutrophil % 42.7 % (47-70); Platelet Count 263 K/mm3 (150-450); RBC Distribution Width CV 12.2 % (11.6-14.6); RBC Distribution Width SD 43.3 fl (35.1-43.9); Red Blood Count 3.84 M/mm3 (4.2-5.4); White Blood Count 6.9 K/mm3 (4.4-11.0)
[2021-03-31 15:23] LABS: Partial Thromboplast Time 27.3 Seconds (24.1-36.2); Prothrombin Time (Protime)PT. 12.6 SECONDS (11.7-14.9)
[2021-03-31 15:31] LABS: ALB/GLOB Ratio 1.1 RATIO (0.9-2.4); AST(SGOT) 28 U/L (15-37); Alanine Aminotransfer ALT/SGPT 45 U/L (13-56); Albumin, Serum 3.8 g/dL (3.2-5.0); Alkaline Phosphatase 61 U/L (45-117); Anion Gap 6 (5-15); BUN 14 mg/dL (7-18); BUN/Creat Ratio 14.6 RATIO (10-20); Calcium,Total 9.1 mg/dL (8.5-10.1); Chloride 104 mmol/L (98-107); Creatinine, Serum 0.96 mg/dL (0.55-1.02); EST Glomerular Filtration Rate 64 mL/min (>60); Est Glom Filt Rate - Afr Amer 78 mL/min (>60); Globulin 3.5 g/dL (2.2-4.2); Glucose 91 mg/dL (74-106); Potassium 4.3 mmol/L (3.5-5.1); Protein, Total 7.3 g/dL (6.4-8.2); Sodium Level 139 mmol/L (136-145)
[2021-04-02 13:20] LABS: Complement C3 113 mg/dL (82-167)
== END ==
PROVIDERS: PCP Family Medicine; Referring Provider Family Medicine; Visit Provider Family Medicine
DX: D64.9 Anemia, unspecified (principal); T14.8XXA Other injury of unspecified body region, initial encounter; R76.8 Other specified abnormal immunological findings in serum; X58.XXXA Exposure to other specified factors, initial encounter
CPT/HCPCS: 36415; 80053; 85025; 85610; 85730; 86160

== ENCOUNTER 2021-07-26 07:08 | Outpatient (CLI) | payer BC, SELFPAY ==
[2021-07-26 10:06] LABS: Mean Corp Hgb Conc 33.3 g/dL (32-36); Mean Corpuscular Hgb 32.2 pg (27.0-32.0); Mean Corpuscular Volume 96.5 fL (81-99); Mean Platelet Vol. 9.3 fl (6.2-12.0); Platelet Count 296 K/mm3 (150-450); RBC Distribution Width CV 12.5 % (11.6-14.6); RBC Distribution Width SD 44.2 fl (35.1-43.9); Red Blood Count 4.04 M/mm3 (4.2-5.4); White Blood Count 7.7 K/mm3 (4.4-11.0)
[2021-07-26 10:30] LABS: Vitamin D,25 Hydroxy 26.6 ng/mL
== END 2021-07-26 23:59 | disposition home or self-care (01) ==
PROVIDERS: PCP Family Medicine; Referring Provider Nurse Practitioner Family; Visit Provider Nurse Practitioner Family
DX: R53.83 Other fatigue (principal)
CPT/HCPCS: 36415; 82306; 85027

== ENCOUNTER 2021-08-02 09:13 | Outpatient (CLI) | payer BC, SELFPAY ==
--- NOTE | 2021-08-02 09:19 | RAD_ITS ---
STUDY: X-RAY - RIGHT KNEE REASON FOR EXAM: Female, 55 years old. Pain and stiffness TECHNIQUE: 3 view(s) of the knee. COMPARISON: None. FINDINGS: Normal visualized distal femur. Normal visualized proximal tibia and fibula. Normal proximal tibiofibular articulation. Normal medial femorotibial compartment. Normal lateral femorotibial compartment. Normal patellofemoral articulation. The soft tissue structures are unremarkable. RAD/Knee 3 Views IMPRESSION: Normal x-ray examination of the knee. Electronically Signed: Michael Browning MD at 16:19 EST ,
== END 2021-08-02 23:59 | disposition home or self-care (01) ==
LOC: MTRAD 09:16
PROVIDERS: PCP Family Medicine; Referring Provider Nurse Practitioner Family; Visit Provider Nurse Practitioner Family
DX: M25.561 Pain in right knee (principal)
CPT/HCPCS: 73562

== ENCOUNTER 2021-08-03 07:15 | Outpatient (CLI) | payer BC, SELFPAY ==
--- NOTE | 2021-08-03 07:21 | US_ITS ---
STUDY: ABDOMINAL ULTRASOUND REASON FOR EXAM: Female, 55 years old. Right upper quadrant pain. TECHNIQUE: Transabdominal ultrasound was performed with real-time and static lara scale imaging. TECHNICAL QUALITY: Adequate. COMPARISON: None. FINDINGS: Liver: The liver measures 16.8 cm. There is increased echogenicity consistent with fatty infiltration. The bile ducts are within normal limits. There is hepatic color flow. The direction of portal flow is hepatopetal. There is no demonstrated mass lesion. Gallbladder: Normal distended gallbladder. The gallbladder wall measures 2.5 mm. There is a negative sonographic Whitlock''s sign. There is no pericholecystic fluid. There are no gallstones. Common Bile Duct (C.B.D.): The common bile duct measures 2.7 mm. Pancreas: Normal size of the head, body and tail of the pancreas. There is normal echogenicity of the pancreas. There is no demonstrated pancreatic mass or cyst. Spleen: There is splenomegaly. The spleen measures 14.2 cm x 6.5 cm x 5.8 cm. Right Kidney: Normal size of the right kidney. The right kidney measures 12.1 cm x 5.9 cm x 4.6 cm. Normal renal cortex. The right cortex measures 1.4 cm. There is no demonstrated renal mass or cyst. There is no right hydronephrosis. Left Kidney: Normal size of the left kidney. The left kidney measures 11.4 cm x 5.7 cm x 6.3 cm. Normal renal cortex. The left cortex measures 1.7 cm. There is no demonstrated renal mass or cyst. There is no left hydronephrosis. Aorta: Unremarkable I.V.C.: The IVC is patent. There is no ascites. US/Abdomen Complete IMPRESSION: Fatty infiltration of the liver. Splenomegaly. Electronically Signed: Jose Raul Willard MD at 9:16 EST ,
== END 2021-08-03 23:59 | disposition home or self-care (01) ==
PROVIDERS: PCP Family Medicine; Referring Provider Nurse Practitioner Family; Visit Provider Nurse Practitioner Family
DX: R10.9 Unspecified abdominal pain (principal)
CPT/HCPCS: 76700

== ENCOUNTER 2021-09-09 07:15 | Outpatient (CLI) | payer BC, SELFPAY ==
--- NOTE | 2021-09-09 07:17 | US_ITS ---
STUDY: ABDOMINAL ULTRASOUND - ELASTOGRAPHY REASON FOR VISIT: Female, 55 years old. Nonalcoholic fatty liver disease. TECHNIQUE: Liver stiffness measurements were obtained on a SpotMe RS 85 ultrasound machine using a CA 1-7 probe following the SRU guidelines. 3 measurements were obtained using a 2-D-SWE method. The IQR/M was 16% suggesting a quality data set. TECHNICAL QUALITY: Adequate. COMPARISON: Comparison is made with prior ultrasound of the abdomen dated 08/03/2021. FINDINGS: Liver: Fatty infiltration of the liver. Median liver stiffness measured 4 kPa. US/Elastography Parenchyma/Organ IMPRESSION: Liver stiffness measures 4 kPa compatible with FO (Normal) Metavir score. Electronically Signed: Jose Raul Willard MD at 8:57 EDT ,
== END 2021-09-09 23:59 | disposition home or self-care (01) ==
LOC: US 07:16
PROVIDERS: PCP Family Medicine; Referring Provider Family Medicine; Visit Provider Family Medicine
DX: K76.0 Fatty (change of) liver, not elsewhere classified (principal)
CPT/HCPCS: 76981

== ENCOUNTER → 2021-10-19 | Outpatient (CLI) | payer BC, SELFPAY ==
--- NOTE | 2021-10-19 08:18 | CT_ITS ---
STUDY: CT CHEST T ABDOMEN WITH CONTRAST REASON FOR EXAM: Female, 55 years old. Splenomegaly, abd pain RADIATION DOSAGE (If Supplied By Facility): CTDIvol = ( 18.51 ) mGy, DLP = ( 1465.22 ) mGycm TECHNIQUE: Transaxial imaging was performed following intravenous administration of IV 100mL Isovue-300. Individualized dose optimization techniques were used for this CT. COMPARISON: Comparison is made with prior CT scan abdomen/pelvis dated 06/01/2017. FINDINGS: CHEST Small benign-appearing bilateral axillary lymph nodes. Minimal increased markings at the lung bases suggestive of bibasilar atelectasis. There is no demonstrated pleural abnormality. Normal heart and pericardium. Normal mediastinum. Normal hilar regions. Normal unenhanced pulmonary arteries. Normal aorta arch and descending thoracic aorta. Normal osseous structures. ABDOMEN Minimal degree of bibasilar atelectasis. The visualized portions of the heart are within normal limits. There is decreased attenuation of the liver consistent with steatosis. Normal gallbladder and extrahepatic biliary system. Borderline splenomegaly. Normal pancreas. Normal bilateral adrenal glands. Normal right kidney. Normal left kidney. Normal visualized stomach. Normal small intestine. Normal colon. Calcified appendicolith within the appendix. Normal abdominal aorta. Normal inferior vena cava. There is borderline retroperitoneal lymphadenopathy with enlarged nodes no greater than 10mm in the short axis diameter. Normal abdominal wall. There are degenerative changes of the visualized lumbar spine. CT/CT Chest AND Abd W/ Contrast IMPRESSION: Borderline splenomegaly. Mild degree of bibasilar linear atelectasis. Calcified appendicolith within the appendiceal lumen. Electronically Signed: Jose Raul Willard MD at 14:03 EDT ,
== END | disposition home or self-care (01) ==
LOC: CT 08:16
PROVIDERS: PCP Family Medicine; Visit Provider Nurse Practitioner Family
DX: R10.9 Unspecified abdominal pain (principal); R16.1 Splenomegaly, not elsewhere classified
CPT/HCPCS: 71260; 74160; Q9967; A4216

== ENCOUNTER → 2022-01-13 | Outpatient (CLI) | payer BC, SELFPAY ==
--- NOTE | 2022-01-13 08:44 | US_ITS ---
INDICATION: F/U SPLEEN SIZE EXAMINATION: Ultrasound US Abdomen Limited (quadrant) TECHNIQUE: Ba scale imaging with graded compression and color doppler was obtained of the right lower quadrant. COMPARISON: 06/01/2017. FINDINGS: Evaluation of the spleen demonstrates unremarkable echogenicity and vascularity with no evidence of masses. Spleen demonstrates unremarkable size shape and configuration. The spleen measures 13.6 x 6.6 x 5.6 cm with a volume of 256.11 mL. Within normal limits. The left kidney demonstrates unremarkable echogenicity, unremarkable vascularity, unremarkable size, shape and configuration is no evidence of masses. No evidence of left hydronephrosis or stones is seen. The left kidney measures 11.4 x 5.7 x 4.2 cm. The left renal cortex measures 2.0 cm. US/Spleen IMPRESSION: Unremarkable spleen and left kidney. Electronically Signed: Henry Lindsay MD at 10:32 EDT ,
[2022-01-13 09:55] LABS: Absolute Lymphocyte Count 2.39 X10^3/uL (0.83-4.51); Absolute Neutrophil Count 2.3 X10^3/uL (2.0-7.7); Basophil# 0.04 X10^3/uL; Basophil% 0.7 % (0-1); Eosinophil# 0.16 X10^3/uL; Hematocrit 36.7 % (37-47); Lymphocyte # 2.39 X10^3/ul (0.83-4.51); Lymphocyte % 44.1 % (19-41); Mean Corp Hgb Conc 32.7 g/dL (32-36); Mean Corpuscular Hgb 31.5 pg (27.0-32.0); Mean Corpuscular Volume 96.3 fL (81-99); Mean Platelet Vol. 9.2 fl (6.2-12.0); Monocyte# 0.53 X10^3/uL; Monocyte% 9.8 % (0-10); NRBC Flagged by Analyzer 0 % (0-5); Neutrophil # 2.29 X10^3/uL (2.7-7.7); Neutrophil % 42.2 % (47-70); Platelet Count 238 K/mm3 (150-450); RBC Distribution Width CV 12.3 % (11.6-14.6); RBC Distribution Width SD 43.4 fl (35.1-43.9); Red Blood Count 3.81 M/mm3 (4.2-5.4); White Blood Count 5.4 K/mm3 (4.4-11.0)
[2022-01-13 10:20] LABS: ALB/GLOB Ratio 1.1 RATIO (0.9-2.4); AST(SGOT) 30 U/L (15-37); Alanine Aminotransfer ALT/SGPT 52 U/L (13-56); Albumin, Serum 3.6 g/dL (3.2-5.0); Alkaline Phosphatase 55 U/L (45-117); Anion Gap 2 (5-15); BUN 21 mg/dL (7-18); BUN/Creat Ratio 24.3 RATIO (10-20); Calcium,Total 8.8 mg/dL (8.5-10.1); Chloride 110 mmol/L (98-107); Creatinine, Serum 0.86 mg/dL (0.55-1.02); EST Glomerular Filtration Rate 72 mL/min (>60); Est Glom Filt Rate - Afr Amer 87 mL/min (>60); Globulin 3.2 g/dL (2.2-4.2); Glucose 104 mg/dL (74-106); LDH 158 U/L (84-246); Potassium 4.2 mmol/L (3.5-5.1); Protein, Total 6.8 g/dL (6.4-8.2); Sodium Level 142 mmol/L (136-145)
[2022-01-13 17:25] LABS: Xtra Tube EP Lab EXTRA TUBE
== END | disposition home or self-care (01) ==
PROVIDERS: PCP Family Medicine; Visit Provider Internal Medicine Hematology & Oncology
DX: R16.1 Splenomegaly, not elsewhere classified (principal); R23.8 Other skin changes; R10.9 Unspecified abdominal pain
CPT/HCPCS: 36415; 76705; 80053; 83615; 85025

== ENCOUNTER → 2022-03-24 | Outpatient (CLI) | payer BC, SELFPAY ==
--- NOTE | 2022-03-24 15:56 | BI_ITS ---
MAMMOGRAPHY - BILATERAL SCREENING REASON FOR EXAM: Female, 56 years old. Routine annual screening examination. PERTINENT HISTORY: Grandmother with breast cancer. Aunt with breast cancer. TECHNIQUE: Digital bilateral breast dinh (3D mammographic acquisition) in the CC and MLO projections. 2-D mediolateral oblique (MLO) and craniocaudad (CC) views of both breasts were obtained. CAD: Full Field Digital Mammography with Computer Added Detection was performed. COMPARISON: Comparison is made with prior study dated 03/08/2021 04/28/2020. FINDINGS: Breast Composition: There are scattered areas of fibroglandular density. There are no dominant masses or suspicious calcifications. Stable small benign-appearing bilateral axillary lymph nodes. No other significant abnormalities are identified. There has been no significant change since the prior study. BI/SCRN MAMM (CAD)W/DINH BILAT IMPRESSION: Stable bilateral screening mammogram. Yearly follow-up mammogram recommended. (A) ASSESSMENT CATEGORY: BIRADS Category 2: Benign. A letter regarding these results will be sent to the patient by the facility within 30 days. Approximately 10% of breast cancers are not detected by mammography. A normal mammogram should not delay biopsy of a clinically suspicious abnormality. [id number] Electronically Signed: Jose Raul Willard MD at 8:03 EDT ,
== END | disposition home or self-care (01) ==
LOC: OPBI 15:55
PROVIDERS: PCP Family Medicine; Referring Provider Family Medicine; Visit Provider Family Medicine
DX: Z12.31 Encounter for screening mammogram for malignant neoplasm of breast (principal); Z80.3 Family history of malignant neoplasm of breast
CPT/HCPCS: 77063; 77067

== ENCOUNTER → 2022-09-22 | Outpatient (CLI) | payer BC, SELFPAY ==
--- NOTE | 2022-09-22 14:50 | RAD_ITS ---
STUDY: X-RAY - LUMBOSACRAL SPINE REASON FOR EXAM: Female, 56 years old. Spondylolisthesis TECHNIQUE: 6 view(s) of the lumbosacral spine were obtained. COMPARISON: None FINDINGS: Normal lumbar lordosis. There is no substantial scoliosis. There is normal alignment of the vertebrae. Normal vertebral bodies and endplates. Mild disc space narrowing throughout the lumbar spine. Normal bilateral sacral ala, sacroiliac joints, and visualized sacrum. Normal visualized soft tissue structures. No evidence of instability in the flexion or extension views, range of motion is limited. RAD/L/S Spine w Bend Min 6 Vw IMPRESSION: Mild degenerative changes, no acute findings Electronically Signed: Michael Browning MD at 15:09 EDT ,
== END | disposition home or self-care (01) ==
LOC: MTRAD 14:47
PROVIDERS: PCP Family Medicine; Referring Provider Family Medicine; Visit Provider Family Medicine
DX: M43.10 Spondylolisthesis, site unspecified (principal)
CPT/HCPCS: 72114

== ENCOUNTER 2022-10-27 07:00 | Outpatient (RCR) | payer BC, SELFPAY ==
--- NOTE | 2022-10-06 09:07 | HP.PTEVAL ---
Patient's Visit Information JEAN GROSSMAN is a 56 year old F referred to Physical Therapy by Dr. Kev Cheng MD with a diagnosis of L gluteal pain, L SI point, L2-L4 spondylothesis. Date of Evaluation: 10/06/22 Physical Therapist: Ricardo Salvador DPT - Visit Plan Frequency: 2x /Week Duration: 6 Weeks Plan: Start with PT in aquatic setting. Focus on core stability, but also add in deep water hangs initially as she had some initial relief with light manual traction. I will follow up in 2 weeks to assess progress. May progress to land at that point in time pending progress/tolerance. - Subjective Pt is here today for her initial evaluation of L gluteal pain, L SI point, L2-L4 spondylothesis. Pt. reports having pain for a few years now with a few flares in that time. She reports most recent flare up was ~4 weeks ago when she was drying off after a shower. She does have some radicular symptoms down her L leg at times, wrapping around the front of her thigh. She reports bending fwrd seems to increase. 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 Muscle relaxors do reduce her pain. Pt. reports trying stretching, and chiropractor without much relief. She has done aquatic aerobics in the past with good tolerance. She did try this over spring break but did not have as much relief. Pt. is hopeful to reduce symptoms in order to get back to all work and recreational activities without limitations. - Pain L lumbar spine Pain Intensity (Out of 10): 1 Pain Intensity Range: 1, 10 - Objective POSTURE: Pt. has slight trunk shift to R side, but not what I would consider a full lateral shift. PALPATION: Pt. has increased tenderness with spring testing of L2-S1. Hypomobility noted with same segments. Pt. also has pain at L SI region as well. Palpation here doesnt seem to cause much radicular symptoms. NEURO: Pt. has 1+ bilateral patellar DTR and 2+ achilles bilaterally. Pt is able to rise on heels and toes without issues. ROM: LUMBAR SPINE: flexion- nil loss mild increase NE, ext min/mod loss increase NW, SB R nil loss NE, SB L nil loss increase NW, rotation R nil loss NE, rotation L nil loss NE. B hips: normal throughout without increase in symptoms. Normal HS length, normal hip flexor length bilaterally. MMT: Pt. has 5/5 strength throughout BLEs without increase in symptoms. Core strength- poor+. GAIT: Pt. has decreased arm swing with gait and slight reduction in B step length. Fairly rigid posture with gait. STAIRS: normal. - Special Tests L/S Slump test left side: Positive L/S Slump test right side: Negative L/S Left Straight Leg Raise: Negative L/S Right Straight Leg Raise: Negative Lumbar Standing: Flexion - Mechanical Response: No effect Lumbar Standing: Flexion - Symptoms During Testing: No effect Lumbar Standing: Flexion - Symptoms After Testing: No effect Lumbar Standing: Extension - Mechanical Response: No effect Lumbar Standing: Extension - Symptoms During Testing: Increases Lumbar Standing: Extension - Symptoms After Testing: No worse Lumbar Standing: Right Side Glides - Mechanical Response: No effect Lumbar Standing: Right Side Paicines - Symptoms During Testing: No effect Lumbar Standing: Right Side Paicines - Symptoms After Testing: No effect Lumbar Standing: Left Side Paicines - Mechanical Response: No effect Lumbar Standing: Left Side Paicines - Symptoms During Testing: Decreases Lumbar Standing: Left Side Paicines - Symptoms After Testing: No better Lumbar Lying: Flexion - Mechanical Response: No effect Lumbar Lying: Flexion - Symptoms During Testing: No effect Lumbar Lying: Flexion - Symptoms After Testing: No effect Lumbar Lying: Extension - Mechanical Response: No effect Lumbar Lying: Extension - Symptoms During Testing: Increases Lumbar Lying: Extension - Symptoms After Testing: Worse Lumbar Static: Slouched Sit - Mechanical Response: No effect Lumbar Static: Slouched Sit - Symptoms During Testing: No effect Lumbar Static: Slouched Sit - Symptoms After Testing: No effect Lumbar Static: Sitting Erect - Mechanical Response: No effect Lumbar Static: Sitting Erect - Symptoms During Testing: No effect Lumbar Static: Sitting Erect - Symptoms After Testing: No effect Lumbar Static:Lying Prone in Extension - Mechanical Response: No effect Lumbar Static: Lying Prone in Extension - Sx During Testing: Increases Lumbar Static: Lying Prone in Extension - Sx After Testing: Worse - Balance/Special Test Scores Oswestry Low Back Score: 18 - Goals Goal 1:: LTG: Pt. to be I with HEP. Goal Time Frame: 4-6 Weeks Goal 2:: LTG: Pt. to be able to sleep throughout the night without increase in symptoms. Goal Time Frame: 4-6 Weeks Goal 3:: STG: pt. to have full lumbar motion without increase in symptoms. Goal Time Frame: 2-4 Weeks Goal 4:: LTG: Pt. to have increased core strength to fair allowing for reduce stress to lumbar spine with all work and recreational activities. Goal Time Frame: 4-6 Weeks Goal 5:: LTG: PT. to complete all work activities without increase in lumbar spine symptoms. Goal Time Frame: 4-6 Weeks - Rehabilitation Potential Physical Therapy Diagnosis: Pt. has signs and symptoms consistent with L gluteal pain, L SI point, L2-L4 spondylothesis. Pt. has some radicular symptoms down her L glute into her thigh at times (reported). She did have a mild + slump test, but negative SLR on L side. She did not have a marked directional preference for reduction in symptoms this date. She would benefit from PT to work on core stability to reduce stress applied to lumbar spine with all work and recreational activities. Rehabilitation Potential: Good - Anticipated Interventions Patient/Client Instruction: Educate patient on: Condition, Plan of Care, Risk Factors, Benefits of Fitness Program For the Purpose of:: To facilitate caregiver knowledge, To improve self management, To prevent re-injury, To improve ability to perform tasks related to life management, To improve tolerance to ADL's Therapeutic Exercise to Include: Strength training, Power training, Endurance training, Body mechanics, Postural training, Flexibilty training, In an aquatic setting, Dynamic Lumbar Stabilization For the Purpose of:: To decrease pain, To improve nutrient delivery to tissue, To increase oxygenation perfusion, To improve muscle performance and motor function, To improve ability to perform ADL's, To improve performance and independence with ADL's, To improve ability of physical actions for home/community/work/leisure Thank you for the opportunity to evaluate your patient. For Medicare and Medicare HMO plans, please review the plan of care and approve it. It will need to be FAXED BACK to us at [phone] for Medicare purposes. For Medicare only, by signing this I certify the plan of care. Please let me know if there are questions or concerns regarding this plan of care. Physician Signature: Date:
--- NOTE | 2022-10-27 07:33 | HP.PTDCSUM ---
It has been my pleasure to treat JEAN GROSSMAN referred by Dr. Kev Cheng MD, with the diagnosis of L gluteal pain, L SI point, L2-L4 spondylothesis for a total of 6 visit(s). Discharge Date: 10/27/22 Please see the following information for a summary of their discharge status. Subjective: Pt. reports overall not doing much better. She has been having increased pain with doing her pool exercises. She reports increased pain with side ways walking. She also reports having increased knee pain and pain in her feet. She did mention some tingling in her feet as well. L lumbar spine Pain Intensity (Out of 10): 2 Objective/Function: ROM: LUMBAR SPINE: flexion nil loss NE, ext min/mod loss increase NW, SB R nil loss increase NW, SB L nil loss NE, rotation nil/min loss bilat mild increase NW. Overall decent ROM. Normal hip ROM bilaterally. Palpation: Pt. was tender with light spring testing throughout lumbar spine with hypomobility noted throughout lumbar spine. She did have some relief with SKTC, flexion in supine, but not lasting. any prone positioning was painful. Normal strength throughout BLEs, poor core strength. We focused on core stability in aquatic setting, which to this point did not feel have a pronounced benefit. - slump test, - SLR test. I was unable to reproduce any radicular symptoms this date with testing. Her lumbar spine symptoms were fairly irritable with testing today. Overall she does not feel much better with PT thus far and would like to return to physician to determine best course of action. Goal 1:: LTG: Pt. to be I with HEP. Goal Progress: Goal Met Goal 2:: LTG: Pt. to be able to sleep throughout the night without increase in symptoms. Goal Progress: Progressing Goal 3:: STG: pt. to have full lumbar motion without increase in symptoms. Goal Progress: Progressing Goal 4:: LTG: Pt. to have increased core strength to fair allowing for reduce stress to lumbar spine with all work and recreational activities. Goal Progress: Progressing Goal 5:: LTG: PT. to complete all work activities without increase in lumbar spine symptoms. Goal Progress: Not Progressing Plan: Overall patient did not have much relief with pool exercises, she feels worse in some aspects. Pt. did not present with a directional preference. I do feel like some core strengthening/stability would be beneficial, but she might need other follow up due to the irritability of her symptoms. Pt. to follow up with physician to determine best course of action at this point in time. Discharge Comments: Pt. will be DC to physician at this point due to minimal progress with PT. Pt. was seen in aquatic setting. If there are questions or concerns regarding this patient's physical therapy, please feel free to call me at [phone]. Thank you for the referral of this patient. Sincerely, Ricardo Salvador, DPT Balance/Gait/Functional tests - Balance/Special Test Scores Oswestry Low Back Score: 18
== END 2022-10-27 15:20 | disposition home or self-care (01) ==
LOC: PT 07:00
PROVIDERS: PCP Family Medicine; Referring Provider Family Medicine; Visit Provider Family Medicine
DX: M43.16 Spondylolisthesis, lumbar region (principal)
CPT/HCPCS: 97113; 97161; 97164

== ENCOUNTER → 2022-11-09 | Outpatient (CLI) | payer BC, SELFPAY ==
[2022-11-09 12:58] LABS: Absolute Lymphocyte Count 2.89 X10^3/uL (0.83-4.51); Absolute Neutrophil Count 2.9 X10^3/uL (2.0-7.7); Basophil# 0.06 X10^3/uL; Basophil% 0.9 % (0-1); Eosinophil# 0.19 X10^3/uL; Eosinophils% 2.8 % (0-5); Hematocrit 41.6 % (37-47); Hemoglobin 13.8 g/dL (12.0-15.0); Lymphocyte # 2.89 X10^3/ul (0.83-4.51); Lymphocyte % 42.5 % (19-41); Mean Corp Hgb Conc 33.2 g/dL (32-36); Mean Corpuscular Hgb 31.7 pg (27.0-32.0); Mean Corpuscular Volume 95.4 fL (81-99); Mean Platelet Vol. 9.2 fl (6.2-12.0); Monocyte# 0.76 X10^3/uL; Monocyte% 11.2 % (0-10); NRBC Flagged by Analyzer 0 % (0-5); Neutrophil # 2.89 X10^3/uL (2.7-7.7); Neutrophil % 42.5 % (47-70); Platelet Count 312 K/mm3 (150-450); RBC Distribution Width CV 12.8 % (11.6-14.6); RBC Distribution Width SD 44.7 fl (35.1-43.9); Red Blood Count 4.36 M/mm3 (4.2-5.4); White Blood Count 6.8 K/mm3 (4.4-11.0)
[2022-11-09 13:37] LABS: ALB/GLOB Ratio 1.2 RATIO (0.9-2.4); AST(SGOT) 28 U/L (15-37); Alanine Aminotransfer ALT/SGPT 42 U/L (13-56); Alkaline Phosphatase 68 U/L (45-117); Anion Gap 6 (5-15); BUN 26 mg/dL (7-18); CRP < 2.90 mg/L (0.0-3.0); Calcium,Total 9.4 mg/dL (8.5-10.1); Chloride 107 mmol/L (98-107); Creatinine, Serum 0.87 mg/dL (0.55-1.02); EST Glomerular Filtration Rate 72 mL/min (>60); Est Glom Filt Rate - Afr Amer 87 mL/min (>60); Globulin 3.3 g/dL (2.2-4.2); Glucose 109 mg/dL (74-106); Potassium 4.2 mmol/L (3.5-5.1); Protein, Total 7.3 g/dL (6.4-8.2); Sodium Level 139 mmol/L (136-145)
[2022-11-10 14:09] LABS: PROEL- A/G Ratio 1.3 (0.7-1.7); PROEL- Albumin 3.9 g/dL (2.9-4.4); PROEL- Alpha-1 Globulin 0.2 g/dL (0.0-0.4); PROEL- Alpha-2 Globulin 0.6 g/dL (0.4-1.0); PROEL- Beta Globulin 1.1 g/dL (0.7-1.3); PROEL- Gamma Globulin 1.2 g/dL (0.4-1.8); PROEL- TOTAL PROTEIN 6.9 g/dL (6.0-8.5)
== END | disposition home or self-care (01) ==
PROVIDERS: PCP Family Medicine; Referring Provider Family Medicine; Visit Provider Family Medicine
DX: M43.17 Spondylolisthesis, lumbosacral region (principal)
CPT/HCPCS: 36415; 80053; 84165; 85025; 86140

== ENCOUNTER → 2022-11-12 | Outpatient (CLI) | payer BC, SELFPAY ==
--- NOTE | 2022-11-12 07:26 | MRI_ITS ---
STUDY: MRI LUMBAR SPINE WITHOUT CONTRAST REASON FOR EXAM: Female, 57 years old. Ongoing lumbar pain following physical therapy treatment., left leg pain TECHNIQUE: Standardized fat and water weighted pulse sequences were obtained in the sagittal and axial planes. COMPARISON: Lumbar spine radiographs 09/22/2022. FINDINGS: T11-T12 and T12-L1: (Sagittal only). Normal endplates. Normal disc height, hydration and morphology. No ventral extradural defects. Normal central canal and bilateral intervertebral neural foramina. Normal lumbar lordosis. There is no substantial scoliosis. Normal conus medullaris that terminates at the lower T12 vertebral body level. L1-2: Normal L1 inferior endplate. Mild anterior wedging of L2 superior endplate is presumably from remote injury. Normal disc height, hydration and morphology. Normal facet joints. Normal central canal and bilateral lateral recesses. Normal bilateral intervertebral neural foramina. L2-3: Normal endplates. Mild disc space height narrowing. Mild ventral extradural defect due to posterior bulging annulus. Normal facet joints. Normal central canal and bilateral lateral recesses. Normal bilateral intervertebral neural foramina. L3-4: Normal endplates. Normal disc height, hydration and morphology. Normal bilateral facet joints. Normal central canal and bilateral lateral recesses. Normal bilateral intervertebral neural foramina. L4-5: Normal endplates. Normal disc height, hydration and morphology. Normal bilateral facet joints. Normal central canal and bilateral lateral recesses. Normal bilateral intervertebral neural foramina. L5-S1: Normal endplates. Normal disc height, hydration and morphology. Normal bilateral facet joints. Normal central canal and bilateral lateral recesses. Normal bilateral intervertebral neural foramina. Normal visualized sacral ala. Normal visualized paraspinous soft tissue structures. MRI/Spine Lumbar (Routine) IMPRESSION: 1. No MRI evidence of lumbar extruded disc fragment, disc protrusion, spinal stenosis or nerve root displacement. 2. Small L2-L3 posterior bulging annulus. 3. Minimal anterior wedging of L2 superior endplate is presumably from remote injury. Electronically Signed: Andres Marie MD at 13:27 EDT ,
== END | disposition home or self-care (01) ==
LOC: MRI 07:18
PROVIDERS: PCP Family Medicine; Referring Provider Family Medicine; Visit Provider Family Medicine
DX: M43.17 Spondylolisthesis, lumbosacral region (principal)
CPT/HCPCS: 72148

== ENCOUNTER → 2023-01-12 | Outpatient (CLI) | payer BC, SELFPAY ==
--- NOTE | 2023-01-12 08:42 | US_ITS ---
STUDY: ABDOMINAL ULTRASOUND - LEFT UPPER QUADRANT REASON FOR EXAM: Female, 57 years old. MONITOR SPLEEN, splenomegaly, luq TECHNIQUE: Transabdominal ultrasound was performed with real-time and static lara scale imaging. TECHNICAL QUALITY: Adequate. COMPARISON: Comparison is made with prior examination January 13, 2022. FINDINGS: Spleen: There is splenomegaly. The spleen measures 14 cm x 5.6 x 6 cm. Essentially stable. Left Kidney: Normal size of the left kidney. The left kidney measures 11.8 cm x 6 x 5.1 cm. Normal renal cortex. The left cortex measures 1.3 cm. There is no demonstrated renal mass or cyst. There is no left hydronephrosis. US/Abdomen Limited IMPRESSION: Stable splenomegaly. Electronically Signed: Jose Raul Willard MD at 15:10 EDT ,
[2023-01-12 08:58] LABS: Absolute Lymphocyte Count 2.95 X10^3/uL (0.83-4.51); Absolute Neutrophil Count 3.3 X10^3/uL (2.0-7.7); Basophil# 0.07 X10^3/uL; Eosinophil# 0.26 X10^3/uL; Eosinophils% 3.6 % (0-5); Hemoglobin 13.7 g/dL (12.0-15.0); Lymphocyte # 2.95 X10^3/ul (0.83-4.51); Lymphocyte % 40.8 % (19-41); Mean Corp Hgb Conc 34.3 g/dL (32-36); Mean Corpuscular Hgb 33.2 pg (27.0-32.0); Mean Corpuscular Volume 96.9 fL (81-99); Mean Platelet Vol. 8.9 fl (6.2-12.0); Monocyte# 0.67 X10^3/uL; Monocyte% 9.3 % (0-10); NRBC Flagged by Analyzer 0 % (0-5); Neutrophil # 3.27 X10^3/uL (2.7-7.7); Neutrophil % 45.2 % (47-70); Platelet Count 296 K/mm3 (150-450); RBC Distribution Width CV 13.7 % (11.6-14.6); RBC Distribution Width SD 49.1 fl (35.1-43.9); Red Blood Count 4.13 M/mm3 (4.2-5.4); White Blood Count 7.2 K/mm3 (4.4-11.0)
[2023-01-12 09:19] LABS: ALB/GLOB Ratio 1.1 RATIO (0.9-2.4); AST(SGOT) 27 U/L (15-37); Alanine Aminotransfer ALT/SGPT 42 U/L (13-56); Albumin, Serum 3.8 g/dL (3.2-5.0); Alkaline Phosphatase 67 U/L (45-117); Anion Gap 7 (5-15); BUN 14 mg/dL (7-18); BUN/Creat Ratio 15.9 RATIO (10-20); Calcium,Total 9.3 mg/dL (8.5-10.1); Chloride 106 mmol/L (98-107); Creatinine, Serum 0.88 mg/dL (0.55-1.02); EST Glomerular Filtration Rate 70 mL/min (>60); Est Glom Filt Rate - Afr Amer 85 mL/min (>60); Globulin 3.4 g/dL (2.2-4.2); Glucose 103 mg/dL (74-106); LDH 165 U/L (84-246); Potassium 3.7 mmol/L (3.5-5.1); Protein, Total 7.2 g/dL (6.4-8.2); Sodium Level 142 mmol/L (136-145)
[2023-01-12 16:37] LABS: Xtra Tube EP Lab EXTRA TUBE
== END | disposition home or self-care (01) ==
LOC: US 08:34
PROVIDERS: PCP Family Medicine; Referring Provider Internal Medicine Hematology & Oncology; Visit Provider Internal Medicine Hematology & Oncology
DX: R16.1 Splenomegaly, not elsewhere classified (principal)
CPT/HCPCS: 36415; 76705; 80053; 83615; 85025

== ENCOUNTER → 2023-05-16 | Outpatient (CLI) | payer BC, SELFPAY ==
--- NOTE | 2023-05-16 15:50 | RAD_ITS ---
STUDY: X-RAY - PELVIS AND RIGHT HIP REASON FOR EXAM: Female, 57 years old. R posterior and medial leg pain in groin/buttock. ? Occult hip TECHNIQUE: 3 views of the pelvis and hip. COMPARISON: None. FINDINGS: There is a normal bowel gas pattern. Normal visualized soft tissue structures. Normal bilateral iliac wings, sacroiliac joints and visualized sacrum. Normal bilateral superior and inferior pubic rami. There are degenerative changes of the pubic symphysis with articular narrowing and sclerosis. Normal bilateral ischial tuberosities. Normal visualized femoral head. Normal acetabulum. Normal hip joint. There is no acute fracture. RAD/HIP, UNI W/ Pelvis 2-3 Views IMPRESSION: No fracture. Joint space of the hip is well-preserved. Electronically Signed: Stone Storey MD at 22:30 EST ,
--- NOTE | 2023-05-16 16:00 | RAD_ITS ---
STUDY: X-RAY - RIGHT KNEE REASON FOR EXAM: Female, 57 years old. Medial knee pain and lateral click on PROM TECHNIQUE: 4 view(s) of the knee. COMPARISON: August 02, 2021. FINDINGS: There are stable benign-appearing 1.1 cm sclerosis of the lateral distal femur. Normal visualized proximal tibia and fibula. Normal proximal tibiofibular articulation. There is no demonstrated fracture. Normal medial femorotibial compartment. Normal lateral femorotibial compartment. There is mild degenerative arthrosis of the patellofemoral articulation. The soft tissue structures are unremarkable. RAD/Knee 4 or More Views IMPRESSION: Mild degenerative change. Electronically Signed: Stone Storey MD at 22:26 EST ,
== END | disposition home or self-care (01) ==
LOC: MTRAD 15:49
PROVIDERS: PCP Family Medicine; Referring Provider Family Medicine; Visit Provider Family Medicine
DX: M25.569 Pain in unspecified knee (principal); R10.31 Right lower quadrant pain
CPT/HCPCS: 73502; 73564

== ENCOUNTER → 2023-06-09 | Outpatient (CLI) | payer BC, SELFPAY ==
--- OUTSIDE RECORDS SUMMARY | 2023-06-09 08:59 | XMS RPT_ITS | CCD ---
Author Name Unknown Address [address] [place] [address] Organization [facility] Care Team Providers Care Wide Area Network Systems Administrator Name Role Phone LAMAR CARMEN Unavailable Unavailable LAMAR CARMEN Unavailable Unavailable TREVON DERAS Unavailable Unavailable DENISE CHENG Unavailable Unavailable LAMAR CARMEN Unavailable Unavailable HECTOR TORRES Unavailable Unavailable LAMAR CARMEN Unavailable Unavailable LAMAR CARMEN Unavailable Unavailable DENISE CHENG Unavailable Unavailable LAMAR CARMEN Unavailable Unavailable JEFFREY LEVIN Unavailable Unavailable LAMAR CARMEN Unavailable Unavailable JARED STEWART Attending Unavailable DENISE CHENG Primary Care Unavailable JARED STEWART Referring Unavailable DENISE CHENG Primary Care Unavailable Denise Cheng MD Primary Care Provider Allergies Allergy Classification Reported Allergen(s) Allergy Type Date of Onset Reaction(s) Facility (2 sources) Amoxicillin; Translations: [AMOXICILLIN] Drug Allergy 6 [facility] Repository (2 sources) Sulfonamides (Antibiotic); Translations: [SULFA (SULFONAMIDE ANTIBIOTICS)] Propensity to adverse reactions to drug (disorder) [address] [place] [address] Repository Medications Completed/Discontinued Medications Medication Drug Class(es) Dates Sig (Normalized) Sig (Original) acetaZOLAMIDE 250 mg oral tablet (1 source) Carbonic Anhydrase Inhibitor take 3 tablets by mouth once daily acetaZOLAMIDE (DIAMOX) 250 mg tablet Take 250 mg by mouth once daily. 3 tablets daily 0 Active Problems Problem Classification Problem Date Documented Da te Episodic/Chronic Other connective tissue disease (1 source) Plantar fascial fibromatosis; Translations: [Plantar fascial fibromatosis] Onset: 02-01-2023 Episodic Other connective tissue disease (1 source) Plantar fascial fibromatosis; Translations: [Plantar fascial fibromatosis] 02-01-2023 Episodic Results Test Name Value Interpretation Reference Range Facil ity Encounters Encounter Date Encounter Type Care Provider Facility Start: 02-01-2023 End: 02-01-2023 ambulatory JARED STEWART Facility:[facility] Start: 02-01-2023 End: 02-01-2023 Subsequent hospital visit by physician Xr c [place] [facility] Work Phone: Radiology Procedures Date Procedure Procedure Detail Performing Clinician Start: 02-01-2023 Radex foot complete minimum 3 views Jared Stewart Work Phone: Start: 10-03-2018 Colonoscopy [facility] Work Phone: Plan of Treatment Date Care Activity Detail Author Start: 01-20-2030 Urine microalbumin profile DTa P,Tdap,Td Vaccine (2 - Td or Tdap) [facility] Start: 02-10-2023 Covid-19 Vaccine () Covid-19 Vaccine () [facility] Start: 02-10-2023 Influenza vaccination Influenza Vacc ine (#1) [facility] Start: 06-12-2022 Depression Assessment Depression Ass essment [facility] Start: 10-04-2019 Colonoscopy Colonoscopy [facility] Start: 10-04-2019 Colorectal Cancer Screening Colorectal Cancer Screening [facility] Start: 10-31-2015 Shingrix Vaccine (1 of 2) Shingrix V accine (1 of 2) [facility] Start: 2010 Cologuard (FIT-DNA) Cologuard (FIT-D NA) [facility] Start: [address] Colonography [facility] Start: 2010 Diabetes Screening Diabetes Screenin g [facility] Start: 2010 Fecal Occult Blood Fecal Occult Bloo d [facility] Start: 2010 Lipid 1996 panel - S zeyad or Plasma Lipid Screening [facility] Start: 2010 Sigmoidoscopy Sigmoidoscopy [facility] Start: 04-20-2010 HPV Testing HPV Testing [facility] Start: 04-20-2010 Pap Testing Pap Testing [facility] Start: 2005 Mammography Mammogram Screening [facility] Start: 10-31-1983 Hepatitis C Screening Hepatitis C Sc bill [facility] Start: 10-31-1983 HIV Screening HIV Screening [facility] Start: 1965 Hepatitis B Vaccine (1 of 3 - 3-dose series) Hepatitis B Vaccine (1 of 3 - 3-dose series) [facility] Immunizations Immunization Date Immunization Notes Care Provider Shantanu ho 03-08-2022 influenza virus vaccine, unspecified formulation [facility] Work Phone: [facility] 01-21-2020 tetanus toxoid, redu rima diphtheria toxoid, and acellular pertussis vaccine, adsorbed [facility] Work Phone: [facility] Work Phone: Payers Date Payer Category Payer Unknown [id number] 2022 Unknown [employer] SS PPO [id number] 2022-Present [phone] [address] [place] [address] PPO [id number] 2017 Unknown [id number] 2017 Unknown [id number] Social History Date Type Detail Facility Start: 07-25-2017 Tobacco smoking stat RUSTIS Never smoked tobacco [facility] Start: 07-25-2017 Tobacco use and exposure Smoke less tobacco non-user [facility] Start: 02-01-2023 Alcohol intake Current drinke r of alcohol (finding) [facility] Start: 02-01-2023 History of Social function [facility] Start: 02-01-2023 Tobacco use panel [facility] National Score (1-10 0), lower number is lower risk 65 [facility] Start: 1965 [facility]igned At [facility] Progress note 02-01-2023 Note Date & Type Note Facility 02-01-2023 Note HNO ID: [id number] Author: Sherlyn Garcia RN Service: ? Author Type: ? Type: Progress Notes Filed: 02/01/2023 11:01 PM Note Text: Per Dr. Stewart, Yumiko was provided with a pair of full length original Power Step inserts, size 12, and instructed/educated in its application, wear, and care. All questions were answered, and patient was able to demonstrate competence with the necessary skills to utilize the above equipment. Sherlyn Garcia RN [facility] Progress note 02-01-2023 Note Date & Type Note Facility 02-01-2023 Note HNO ID: [id number] Author: Jared Stewart Service: ? Author Type: Physician Type: Progress Notes Filed: 02/01/2023 11:01 PM Note Text: Initial Podiatric Office Visit: Chief Complaint: This 57 year old female who presents with chief complaint:pain in the ball of her foot HPI Patient presents to clinic for evaluation of b/l foot She has been experiencing pain in the balls of both feet since august. The pain is more present when she is barefoot. She was seen by her pcp who diagnosed patient with plantar fasciitis Patient did treat with massage and stretching but that did not make any difference with her pain She has xrays to review. PAIN EVALUATION 01/10/2023 1342 01/31/2023 1649 Pain Level: 3 3 Pain Location: -- Foot-Left Description: Cramping;Pressure Cramping;Pressure Duration Amount of Time: 5 5 Duration Units: Hours Hours Frequency: Intermittent Intermittent Intervention/Comfort measure: Medication;Reposition Medication;Reposition Comments: -- Live right foot. 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 methylphenidate ER 27 mg biphasic tablet Take 1 tablet by mouth once daily. ascorbic acid, vitamin C, (VITAMIN C) 500 mg tablet Take 500 mg by mouth once daily. vitamin b complex capsule Take 1 capsule by mouth once daily. magnesium oxide 400 mg cap Take 1 capsule by mouth twice daily. traZODone (DESYREL) 50 mg tablet Take 50 mg by mouth daily at bedtime. 0.5 tablet am, 1 tablet pm Multivitamin capsule Take 1 capsule by mouth once daily. Fesoterodine (TOVIAZ) 8 mg Tb24 Take 1 tablet by mouth once daily. (Patient not taking: Reported on 01/21/2020 ) mirabegron (MYRBETRIQ) 50 mg Tb24 Take 1 tablet by mouth once daily. (Patient not taking: Reported on 01/21/2020 ) famotidine (PEPCID) 40 mg tablet Take 40 mg by mouth once daily. (Patient not taking: Reported on 02/01/2023) potassium citrate ER (UROCIT-K) 5 mEq (540 mg) TbER Take 5 mEq by mouth once daily. acetaZOLAMIDE (DIAMOX) 250 mg tablet Take 250 mg by mouth once daily. 3 tablets daily (Patient not taking: Reported on 02/01/2023) phenazopyridine (PYRIDIUM, GERIDIUM) 200 mg tablet Take 1 tablet by mouth three times daily as needed. citalopram hydrobromide 10 mg tablet Take 10 mg by mouth once daily. baclofen 10 mg tablet Take 10 mg by mouth as needed. SUMAtriptan (IMITREX) 50 mg tablet Take 50 mg by mouth as needed. Ibuprofen 200 mg cap Take by mouth as needed. naproxen 250 mg tablet Take 250 mg by mouth as needed. diphenhydrAMINE (BENADRYL) 25 mg capsule Take 25 mg by mouth as needed. For sleep at No current facility-administered medications for this visit. ALLERGIES Allergen Reactions Amoxicillin Sulfa (Sulfonamide * PAST SURGICAL HISTORY Procedure Laterality Date CARPAL TUNNEL RIGHT WRIST 1998 DELIVERY ONLY , low cervical, X-2 LIG/TRNSXJ FLP TUBE ABDL/VAG APPR UNI/BI Tubal ligation RPR 1ST INCAL/VNT HERNIA INCARCERATED 1974 TONSILLECTOMY AND ADENOIDECTOMY AGE 12/> 1978 FAMILY HISTORY Problem Relation Age of Onset Breast Cancer Paternal Grandmother Diabetes Maternal Uncle Diabetes Paternal Grandmother Thyroid Mother Genetic Son Cystic fibrosis Genetic Daughter CF carrier Genetic Daughter CF carrier Headache Mother Social History Tobacco Use Smoking status: Never Smokeless tobacco: Never Substance Use Topics Alcohol use: Yes Comment: Rarely Drug use: No REVIEW OF SYSTEMS GENERAL: Negative for Malaise, significant weight loss, fever RESPIRATORY: Negative for cough, wheezing and shortness of breath CARDIOVASCULAR: Negative for chest pain, leg swelling and palpitations GI: Negative for abdominal discomfort, blood in stools or black stools and change in bowel habits : Negative for dysuria, frequency and incontinence MUSCULOSKELETAL: Negative for joint pain or swelling, back pain, and muscle pain. SKIN: Negative for lesions, rash, and itching. HEMATOLOGY/LYMPHOLOGY Negative for prolonged bleeding, bruising easily, and swollen nodes. ENDOCRINE: Negative for cold or heat intolerance, polyuria, polydipsia and goiter. NEURO: negative Physical Exam: Constitutional: Pt is a well developed 57 year old female who is alert, oriented and cooperative Eyes: Following during examination. No redness or drainage. Respiratory: RR normal and nonlabored. Even breathing. No evidence of distress or shortness of breath. Psychology: Patient is engaged during conversation. Normal affect and mood. Does not a (more content not included)... [facility] Progress note 02-01-2023 Note Date & Type Note Facility 02-01-2023 Note HNO ID: [id number] Author: Sherlyn Garcia RN Service: ? Author Type: ? Type: Progress Notes Filed: 02/01/2023 11:01 PM Note Text: AMB ROOMING INTAKE FLOWSHEET DATA Risk Screening Do you have concerns about personal safety or safety in the home?: No Pain Pain Level: 3 Pain Location: Foot-Left Description: Cramping, Pressure Duration Amount of Time: 5 Duration Units: Hours Frequency: Intermittent Intervention/Comfort measure: Medication, Reposition Comments: Live right foot. Both feet feel like I have pillows under my toes Patient presents with: Left Foot - New Patient, Pain Right Foot - New Patient, Pain Patient c/o shooting pains that come and go up both feet. Also c/o constant feeling in both feet like she has pillows under her toes. XR completed today to review. [facility] Progress note 02-01-2023 Note Date & Type Note Facility 02-01-2023 Note HNO ID: [id number] Author: Estrellita Hoyt RT(R) Service: Radiology Author Type: Technologist Type: Progress Notes Filed: 02/01/2023 1:49 PM Note Text: Radiology Service Progress Note PATIENT NAME: Yumiko Singh DATE OF SERVICE: February 01, 2023 TIME: 1:39 PM PATIENT IDENTITY VERIFICATION COMPLETED USING TWO (2) IDENTIFIERS: Name and Date of confirmed by patient verbally. FALL SCREENING: Has the patient had 2 falls in the last year or 1 fall with injury or currently using an Ambulatory Assistive Device (Walker, Cane, Wheelchair, Crutches, etc.)? No PATIENT GENDER DATA: Female. status: : No status: NO. PATIENT RELEVANT IMPLANT DATA REVIEWED: Not Applicable RADIOLOGY DEPARTMENT: General X-ray: Exam(s) Completed: Lower Extremity X-Ray(s): Foot, Bilateral and Wt. Bearing PERIPHERAL IV DATA: Not applicable SIGNED BY: RT Rivas(R) February 01, 2023 1:39 PM [facility] History of Present illness Narrative 02-01-2023 Estrellita Hoyt RT(R) - 02/01/2023 1:40 PM EDT Note Date & Type Note Facility 02-01-2023 History of Presen t illness Narrative Radiology Service Progress Note PATIENT NAME: Yumiko Singh DATE OF SERVICE: February 01, 2023 TIME: 1:39 PM PATIENT IDENTITY VERIFICATION COMPLETED USING TWO (2) IDENTIFIERS: Name and Date of confirmed by patient verbally. FALL SCREENING: Has the patient had 2 falls in the last year or 1 fall with injury or currently using an Ambulatory Assistive Device (Walker, Cane, Wheelchair, Crutches, etc.)? No PATIENT GENDER DATA: Female. status: : No status: NO. PATIENT RELEVANT IMPLANT DATA REVIEWED: Not Applicable RADIOLOGY DEPARTMENT: General X-ray: Exam(s) Completed: Lower Extremity X-Ray(s): Foot, Bilateral and Wt. Bearing PERIPHERAL IV DATA: Not applicable SIGNED BY: RT Rivas(R) February 01, 2023 1:39 PM documented in this encounter [facility] Evaluation note Note Date & Type Note Facility documented in this encounter [facility] Reason for referral (narrative) Diagnostic Procedure Only (Routine) - Closed Note Date & Type Note Facility Referral ID Status Reason Start Date Expiration Date V isits Requested Visits Authorized [id number] Closed Auto-Generate d Referral 01/30/2023 02/29/2024 1 1 [facility] Reason for visit Narrative Diagnostic Procedure Only (Routine) - Closed Note Date & Type Note Facility Referral ID Status Reason Start Date Expiration Date V isits Requested Visits Authorized [id number] Closed Auto-Generate d Referral 01/30/2023 02/29/2024 1 1 [facility] Summary Purpose Family History No Family History Records FoundNo Family History Records Found Advance Directives No Advanced Directives Records FoundNo Advanced Directives Records Found Additional Source Comments INFORMATION SOURCE (unrecogn ized section and content) DATE CREATED AUTHOR AUTHOR'S ORGANIZ ATION 02/05/2023 [facility] Source Comments (unrecognize d section and content) In the event this informatio n is protected by the Federal Confidentiality of Alcohol and Drug Abuse Patient Records regulations: The Federal rules restrict any use of the information to criminally investigate or prosecute any alcohol or drug abuse patient.[facility] Care Teams (unrecognized sec tion and content) FOR RECORDS PERTAINING TO PATIENTS WHO ARE OR HAVE BEEN ENROLLED IN A CHEMICAL DEPENDENCY/SUBSTANCEABUSE PROGRAM, SOME INFORMATION MAY BE OMITTED. This clinical summary was aggregated from multiple sources. Caution should be exercised in using it in the provision of clinical care. This summary normalizes information from multiple sources, and as a consequence, information in this document may materially change the coding, format and clinical context of patient data. In addition, data may be omitted in some cases. CLINICAL DECISIONS SHOULD BE BASED ON THE PRIMARY CLINICAL RECORDS. [facility]. provides no warranty or guarantee of the accuracy or completeness of information in this document.
[2023-06-09 10:06] LABS: Vitamin D,25 Hydroxy 34.9 ng/mL
[2023-06-09 10:20] LABS: ALB/GLOB Ratio 1.2 RATIO (0.9-2.4); AST(SGOT) 35 U/L (15-37); Alanine Aminotransfer ALT/SGPT 44 U/L (13-56); Albumin, Serum 3.8 g/dL (3.2-5.0); Alkaline Phosphatase 70 U/L (45-117); Anion Gap 6 (5-15); BUN 21 mg/dL (7-18); BUN/Creat Ratio 27.5 RATIO (10-20); Calcium,Total 8.7 mg/dL (8.5-10.1); Chloride 107 mmol/L (98-107); Cholesterol 185 mg/dL (200); Creatinine, Serum 0.76 mg/dL (0.55-1.02); EST Glomerular Filtration Rate 83 mL/min (>60); Est Glom Filt Rate - Afr Amer 100 mL/min (>60); Globulin 3.3 g/dL (2.2-4.2); Glucose 108 mg/dL (74-106); High Density Lipoprotein 29 mg/dL; Potassium 4.1 mmol/L (3.5-5.1); Protein, Total 7.1 g/dL (6.4-8.2); Sodium Level 141 mmol/L (136-145); Triglycerides 441 mg/dL
[2023-06-09 16:01] LABS: Hemoglobin A1c 5.1 % (3.8-5.6)
== END | disposition home or self-care (01) ==
LOC: MTLAB 08:40
PROVIDERS: PCP Family Medicine; Referring Provider Nurse Practitioner Family; Visit Provider Nurse Practitioner Family
DX: R73.01 Impaired fasting glucose (principal); E55.9 Vitamin D deficiency, unspecified; Z13.220 Encounter for screening for lipoid disorders; Z13.1 Encounter for screening for diabetes mellitus
CPT/HCPCS: 36415; 80053; 80061; 82306; 83036

== ENCOUNTER 2023-06-20 16:00 | Outpatient (RCR) | payer BC, SELFPAY ==
--- NOTE | 2023-05-22 08:59 | HP.PTEVAL ---
Patient's Visit Information Visit Information Visit Information: JEAN GROSSMAN is a 57 year old F referred to Physical Therapy by Dr. Kev Cheng MD with a diagnosis of R knee, pes anserine tenderness, groin tenderness, R gluteal pain. Date of Evaluation: 05/18/23 Physical Therapist: Ricardo Salvador DPT Visit Plan Frequency: 2x /Week Duration: 6 Weeks Plan: 1) HS, IT band, hip flexor, quad stretching. Lumbar extension progression. Non painful ranges 2) Core stability, hip strengthening 3) modalities if needed to either knee or hip. Subjective Subjective: Pt. reports having increased pain at her anterior leg, gluteal, groin and lateral knee pain. Pain started ~8 weeks ago. No improvement since. Pt. reprots 3/10 underlying constant pain, increases to 6-7/10 pain at times. Increases symptoms: squatting, cross legged, walking, kneeling, lying on her L side. Decreases pain: heat, ibuprofen. Pt. had xrays: knee and hip negative for loss of joint space or acute injury. 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 Symptoms wake her up at night, especially if she rolls on R side. Pt. hopeful to reduce symptoms in order to get back to all recreational walking and work activities without increase in symptoms. Pain R anterior thigh: Pain Intensity (Out of 10): 3 Objective Objective: POSTURE: Pt. has decent posture in stance. No lateral shift in wt. or lumbar spine. Overall fairly normal posture in stance. No major knee varus/valgus positioning. PALPATION: Pt. has tenderness along R lateral knee, R quad, R medial knee, R groin region, R lateral hip and R gluteal region. NEURO: Normal throughout. Normal B DTR and normal with light and sharp palpation. ROM: LUMBAR SPINE: flexion full no NE, ext min loss NE, SB full NE bilat, rotation full NE bilat. R knee ROM full without increase in symptoms. R hip: Pt. to have some increase R lateral knee pain during R hip ER, more possibly due to torque on knee rather than a radiculopathy. Pt. had increased pain with R hip extension and R quad stretching. (pain at anterior hip). Pt. also had pain with IT band stretching of RLE. + obers test. MMT: Pt. has descent strength in her LEs. Pt. Special Tests L/S Slump test left side: Negative L/S Slump test right side: Negative L/S Left Straight Leg Raise: Negative L/S Right Straight Leg Raise: Negative R Hip Scour: Negative R Hip Quadrant - Intraarticular Pathology: Negative R Hip KRISTIE - Intraarticular Pathology: Negative R Hip FADDIR - Labrum: Negative Comment: KRISTIE caused pain, but not in groin R Knee Leilani - Meniscus: Negative R Knee Apley - Meniscus: Negative R Knee Disco Test - Meniscus: Negative R Knee Harmony - ACL: Negative R Knee Valgus - MCL: Negative R Knee Varus - LCL: Negative Balance/Special Test Scores Lower Extremity Functional Score: 40 Goals Goal 1:: LTG: Pt. to be I with HEP for hip/core and LE strengthening. Goal Time Frame: 4-6 Weeks Goal 2:: LTG: pt. to be able to ambulate and complete all work activities without limitations. Goal Time Frame: 4-6 Weeks Goal 3:: STG: Pt. to sit cross legged at school without increase in R hip/knee pain. Goal Time Frame: 2-4 Weeks Goal 4:: LTG: pt. to have increased R hip ROM without increase in symptoms. Goal Time Frame: 2-4 Weeks Goal 5:: LTG: Pt. to have negative obers test and negative adriana test without increase in symptoms. Goal Time Frame: 4-6 Weeks Rehabilitation Potential Physical Therapy Diagnosis: Pt. has signs and symptoms consistent with R knee, pes anserine tenderness, groin tenderness, R gluteal pain. I was unable to get a good consistent pattern with her symptoms. Pt. feels like her knee radiates up, could not reproduce. I could not correlate R knee pain with hip or back sources. I would like to work on some mobility and strengthening throughout R LE and R core in order to reduce stress to R knee/hip. Rehabilitation Potential: Good Anticipated Interventions Patient/Client Instruction: Educate patient on: Condition, Plan of Care, Risk Factors and Benefits of Fitness Program For the Purpose of:: To facilitate caregiver knowledge, To improve self management, To prevent re-injury, To improve ability to perform tasks related to life management and To improve tolerance to ADL's Therapeutic Exercise to Include: Strength training, Power training, Endurance training, Body mechanics, Postural training, Flexibilty training, Gait and locomotor training, Passive ROM, Active ROM, Dynamic Lumbar Stabilization and Joy Exercises For the Purpose of:: To decrease pain, To increase ROM, To improve nutrient delivery to tissue, To increase oxygenation perfusion, To improve muscle performance and motor function, To improve ability to perform ADL's, To increase tolerance to activity/condition/position, To improve gait and locomotor functions, To improve health of tissue, To decrease soft tissue restriction and To increase flexibility/ROM Ultrasound (thermal/non thermal): Yes For the Purpose of:: To decrease pain, To decrease swelling/inflammation, To increase ROM and To improve nutrient delivery to tissue Text: Thank you for the opportunity to evaluate your patient. For Medicare and Medicare HMO plans, please review the plan of care and approve it. It will need to be FAXED BACK to us at [phone] for Medicare purposes. For Medicare only, by signing this I certify the plan of care. Please let me know if there are questions or concerns regarding this plan of care. Physician Signature: Date:
--- NOTE | 2023-06-08 09:50 | HP.PTREVAL_ITS ---
Re-Evaluation Intro: Dr. Kev Cheng MD, It has been my pleasure to treat JEAN GROSSMAN over the last 7 visits for R knee, pes anserine tenderness, groin tenderness, R gluteal pain. Please see the progress note below for an update on the physical therapy plan of care! Subjective Subjective: Pt. reports being 40% better overall. She reports improved R anterior hip, mild increase in LBP, and B knees are always sore. No NT. Pt. has also been off of school which may be contributing to her recent improvement. Objective Objective/Function: Pt. has good R hip ROM, mild increase in symptoms with end range hip flexion and figure 4 positioning. She reports pain mostly in groin region, but during IT band stretching she had more pain at lateral leg. Pt. had normal Lumbar spine ROM without increase in symptoms. MMT: Pt. has weakness with R hip abd 4/5 increase NW, flexion 4/5 increase NW, ER 5/5, IR 5/5, ext 4+/5. LLE 5-/5 throughout. Core strength- poor. GAIT: Pt. has increased R hip pain during swing and with pre swing. STAIRS: increase NE with R hip flexion during ascending. Pt. has had some relief iwth stretching and US, I talked to her about trialing aquatic exercise to be more active and focus more on strengthening. Pt. agrees. Plan Plan Plan: Pt. to work on B hip and core strengthening in aquatic setting. Balance/Gait/Functional tests Balance/Special Test Scores Lower Extremity Functional Score: 40 Goals Goals Goal 1:: LTG: Pt. to be I with HEP for hip/core and LE strengthening. Goal Time Frame: 4-6 Weeks Goal Progress: Progressing Goal 2:: LTG: pt. to be able to ambulate and complete all work activities without limitations. Goal Time Frame: 4-6 Weeks Goal Progress: Progressing Goal 3:: STG: Pt. to sit cross legged at school without increase in R hip/knee pain. Goal Time Frame: 2-4 Weeks Goal Progress: Progressing Goal 4:: LTG: pt. to have increased R hip ROM without increase in symptoms. Goal Time Frame: 2-4 Weeks Goal Progress: Progressing Goal 5:: LTG: Pt. to have negative obers test and negative adriana test without increase in symptoms. Goal Time Frame: 4-6 Weeks Goal Progress: Progressing Anticipated Interventions Anticipated Interventions Patient/Client Instruction: Educate patient on: Condition, Plan of Care, Risk Factors and Benefits of Fitness Program For the Purpose of:: To facilitate caregiver knowledge, To improve self management, To prevent re-injury, To improve ability to perform tasks related to life management and To improve tolerance to ADL's Therapeutic Exercise to Include: Strength training, Power training, Endurance training, Body mechanics, Postural training, Flexibilty training, Gait and locomotor training, Passive ROM, Active ROM, Dynamic Lumbar Stabilization and Joy Exercises For the Purpose of:: To decrease pain, To increase ROM, To improve nutrient delivery to tissue, To increase oxygenation perfusion, To improve muscle perf ormance and motor function, To improve ability to perform ADL's, To increase tolerance to activity/condition/position, To improve gait and locomotor functions, To improve health of tissue, To decrease soft tissue restriction and To increase flexibility/ROM Ultrasound (thermal/non thermal): Yes For the Purpose of:: To decrease pain, To decrease swelling/inflammation, To increase ROM and To improve nutrient delivery to tissue Re-Evaluation Ending Re-evaluation ending: Please do not hesitate to contact me at [phone] by phone or if you have questions or concerns regarding this new plan of care! Sincerely, Ricardo Salvador DPT
--- NOTE | 2023-09-15 08:26 | HP.PTDCNRP_ITS ---
Patient Information Patient Information: JEAN GROSSMAN was seen in my office for initial evaluation on 05/18/23. The following Plan of Care was established for this patient: POC Established Initial Frequency: 2x /Week Initial Duration: 6 Weeks Anticipated Interventions Patient/Client Instruction: Educate patient on: Condition, Plan of Care, Risk Factors and Benefits of Fitness Program For the Purpose of:: To facilitate caregiver knowledge, To improve self management, To prevent re-injury, To improve ability to perform tasks related to life management and To improve tolerance to ADL's Therapeutic Exercise to Include: Strength training, Power training, Endurance training, Body mechanics, Postural training, Flexibilty training, Gait and l ocomotor training, Passive ROM, Active ROM, Dynamic Lumbar Stabilization and Joy Exercises For the Purpose of:: To decrease pain, To increase ROM, To improve nutrient deli very to tissue, To increase oxygenation perfusion, To improve muscle performance and motor function, To improve ability to perform ADL's, To increase tolerance to activity/condition/position, To improve gait and locomotor functions, To improve health of tissue, To decrease soft tissue restriction and To increase flexibility/ROM Ultrasound (thermal/non thermal): Yes For the Purpose of:: To decrease pain, To decrease swelling/inflammation, To increase ROM and To improve nutrient delivery to tissue Last Seen Last Seen: This patient was last seen in our office 06/20/23. Pertinent comments regarding their Physical therapy will appear below: Pt. was seen in the pool for her R knee, R hip pain in the aquatic setting. At her last visit she reported that she was not having much further improvement and was going back to see her physician. Pt. has not been seen in several months and will be DC from PT at this point in time. At this point I will be discontinuing this patient from physical therapy. I would be happy to see this patient again in the future if found appropriate by the physician. Thank you! Ricardo Salvador, DPT Balance/Gait/Functional tests Balance/Special Test Scores Lower Extremity Functional Score: 40
== END 2023-06-20 19:00 | disposition home or self-care (01) ==
LOC: PT 16:00
PROVIDERS: PCP Family Medicine; Visit Provider Family Medicine
DX: M25.561 Pain in right knee (principal)
CPT/HCPCS: 97035; 97110; 97113; 97140; 97161; 97164

== ENCOUNTER → 2023-08-15 | Outpatient (CLI) | payer BC, SELFPAY ==
--- NOTE | 2023-08-15 07:46 | BI_ITS ---
MAMMOGRAPHY - BILATERAL SCREENING 3-D TOMOSYNTHESIS REASON FOR EXAM: Female, 57 years old. low risk screening PERTINENT HISTORY: No significant family history. TECHNIQUE: 2-D mammograms and 3-D Tomosynthesis of the breast (s) were performed. CAD was performed. COMPARISON: 03/24/2022 FINDINGS: The breast composition is composed of scattered fibroglandular density. Scattered benign calcifications are seen. No dense spiculated masses or suspicious microcalcifications are identified. No architectural distortion is identified. There is no skin thickening or retraction. There has been no significant change since the prior study. BI/SCRN MAMM (CAD)W/DINH BILAT IMPRESSION: No mammographic signs of malignancy. Routine yearly mammograms recommended. ASSESSMENT CATEGORY: BIRADS Category 1: Negative. A letter regarding these results will be sent to the patient by the facility within 30 days. FOLLOW UP RECOMMENDATION: Yearly follow up mammogram recommended. (A) Approximately 10% of breast cancers are not detected by mammography. A normal mammogram should not delay biopsy of a clinically suspicious abnormality. Electronically Signed: Darci Jenkins MD at 17:51 EST ,
--- OUTSIDE RECORDS SUMMARY | 2023-08-15 08:17 | XMS RPT_ITS | CCD ---
Author Name Unknown Address [address] [place] [address] Organization [facility] Care Team Providers Care Screen Cutter And Trimmer Name Role Phone LAMAR CARMEN Unavailable Unavailable [...] sources) Amoxicillin; Translations: [AMOXICILLIN] Drug Allergy 6 [facility] Repository (2 sources) Sulfonamides (Antibiotic); Translations: [SULFA (SULFONAMIDE ANTIBIOTICS)] Propensity to adverse reactions to drug (disorder) [address] [place] [address] Repository Medications Completed/Discontinued Medications Medication Drug Class(es) [...] Start: 02-01-2023 End: 02-01-2023 ambulatory JARED STEWART Facility:[facility] Start: 02-01-2023 End: 02-01-2023 Subsequent hospital visit by physician Xr c [place] [facility] Work Phone: Radiology Procedures Date Procedure Procedure Detail Performing Clinician Start: 02-01-2023 Radex foot complete minimum 3 views Jared Stewart Work Phone: Start: 10-03-2018 Colonoscopy [facility] Work Phone: Plan of Treatment Date Care Activity Detail Author Start: 01-20-2030 Urine microalbumin profile DTa P,Tdap,Td Vaccine (2 - Td or Tdap) [facility] Start: 02-10-2023 Covid-19 Vaccine () Covid-19 Vaccine () [facility] Start: 02-10-2023 Influenza vaccination Influenza Vacc ine (#1) [facility] Start: 06-12-2022 Depression Assessment Depression Ass essment [facility] Start: 10-04-2019 Colonoscopy Colonoscopy [facility] Start: 10-04-2019 Colorectal Cancer Screening Colorectal Cancer Screening [facility] Start: 10-31-2015 Shingrix Vaccine (1 of 2) Shingrix V accine (1 of 2) [facility] Start: 2010 Cologuard (FIT-DNA) Cologuard (FIT-D NA) [facility] Start: [address] Colonography [facility] Start: 2010 Diabetes Screening Diabetes Screenin g [facility] Start: 2010 Fecal Occult Blood Fecal Occult Bloo d [facility] Start: 2010 Lipid 1996 panel - S zeyad or Plasma Lipid Screening [facility] Start: 2010 Sigmoidoscopy Sigmoidoscopy [facility] Start: 04-20-2010 HPV Testing HPV Testing [facility] Start: 04-20-2010 Pap Testing Pap Testing [facility] Start: 2005 Mammography Mammogram Screening [facility] Start: 10-31-1983 Hepatitis C Screening Hepatitis C Sc bill [facility] Start: 10-31-1983 HIV Screening HIV Screening [facility] Start: 1965 Hepatitis B Vaccine (1 of 3 - 3-dose series) Hepatitis B Vaccine (1 of 3 - 3-dose series) [facility] Immunizations Immunization Date Immunization Notes Care Provider Shantanu ho 03-08-2022 influenza virus vaccine, unspecified formulation [facility] [employer] Work Phone: [facility] 01-21-2020 tetanus toxoid, redu rima diphtheria toxoid, and acellular pertussis vaccine, adsorbed [facility] [employer] Work Phone: [facility] Work Phone: Payers Date Payer Category Payer Unknown [id number] 2022 Unknown [employer] SS PPO [id number] 2022-Present [phone] [address] [place] [address] PPO [id number] 2017 Unknown [id number] 2017 Unknown [id number] Social History Date Type Detail Facility [facility]: [facility] Start: 07-25-2017 Tobacco use and exposure Smoke less tobacco non-user [facility] Start: 02-01-2023 Alcohol intake Current drinke r of alcohol (finding) [facility] Start: 02-01-2023 History of Social function [facility] Start: 02-01-2023 Tobacco use panel [facility] National Score (1-10 0), lower number is lower risk 65 [facility] Start: 1965 [facility] Progress note 02-01-2023 Note Date & Type Note Facility 02-01-2023 Note HNO ID: [id number] Author: Sherlyn Garcia RN Service: ? Author [...] utilize the above equipment. Sherlyn Garcia RN [facility] Progress note 02-01-2023 Note Date & Type Note Facility 02-01-2023 Note HNO ID: [id number] Author: Jared Stewart Service: ? Author Type: [...] Does not a (more content not included)... [facility] Progress note 02-01-2023 Note Date & Type Note Facility 02-01-2023 Note HNO ID: [id number] Author: Sherlyn Garcia RN Service: ? Author [...] her toes. XR completed today to review. [facility] Progress note 02-01-2023 Note Date & Type Note Facility 02-01-2023 Note HNO ID: [id number] Author: Estrellita Hoyt RT(R) Service: Radiology Author [...] RT Rivas(R) February 01, 2023 1:39 PM [facility] History of Present illness Narrative 02-01-2023 Estrellita [...] 2023 1:39 PM documented in this encounter [facility] Evaluation note Note Date & Type Note Facility documented in this encounter [facility] Reason for referral (narrative) Diagnostic Procedure Only (Routine) - Closed Note Date & Type Note Facility Referral ID Status Reason Start Date Expiration Date V isits Requested Visits Authorized [id number] Closed Auto-Generate d Referral 01/30/2023 02/29/2024 1 1 [facility] Reason for visit Narrative Diagnostic Procedure Only (Routine) - Closed Note Date & Type Note Facility Referral ID Status Reason Start Date Expiration Date V isits Requested Visits Authorized [id number] Closed Auto-Generate d Referral 01/30/2023 02/29/2024 1 1 [facility] Summary Purpose Family History No Family History Records FoundNo Family History Records Found Advance Directives No Advanced Directives Records FoundNo Advanced Directives Records Found Additional Source Comments INFORMATION SOURCE (unrecogn ized section and content) DATE CREATED AUTHOR AUTHOR'S ORGANIZ ATION 02/05/2023 [facility] Source Comments (unrecognize d section and content) In the event this informatio n is protected by the Federal Confidentiality of Alcohol and Drug Abuse Patient Records regulations: The Federal rules restrict any use of the information to criminally investigate or prosecute any alcohol or drug abuse patient.[facility] Care Teams (unrecognized sec tion and content) [...] BE BASED ON THE PRIMARY CLINICAL RECORDS. [facility]. provides no warranty or guarantee of the accuracy or completeness of information in this document.
== END | disposition home or self-care (01) ==
LOC: OPBI 07:46
PROVIDERS: PCP Family Medicine; Referring Provider Family Medicine; Visit Provider Family Medicine
DX: Z12.31 Encounter for screening mammogram for malignant neoplasm of breast (principal)
CPT/HCPCS: 77063; 77067

== ENCOUNTER → 2023-11-13 | Outpatient (CLI) | payer BC, SELFPAY ==
--- NOTE | 2023-11-13 08:35 | NEURO ---
NCS and/or EMG Patient Report Ordering Doctor: Wagner Whitten DATE OF SERVICE: 11/13/23 Clinical Summary: 58 year old female patient with symptoms of pain in the balls of the bottom of both feet and numbness in the toes - which occur while standing up. Nerve Conduction Studies Summary: The right superficial peroneal SNAP and bilateral medial planter SNAP's were absent. Needle Examination Summary: Reduced motor unit firing rates were seen in multiple muscles, which can be seen in the setting of pain intolerance and/or reduced effort. Otherwise, needle examination of select muscles of the bilateral lower extremities was normal. Impression: There is no electrodiagnostic evidence of a large-fiber peripheral polyneuropathy. Both right and left medial planter responses were absent, which often is a common finding in patients older than 50 years of age, and as such, there is no definite electrodiagnostic evidence of a right/left distal tibial mononeuropathy (tarsal tunnel syndrome). Multi Select Codes Neurology Neurology Interp Codes: 50384-78 Musc test done w/n test comp (interp) (2) and 59440-25 Nrv cndj test 9-10 studies (interp)
== END | disposition home or self-care (01) ==
LOC: PSN 07:03
PROVIDERS: PCP Family Medicine; Referring Provider Podiatrist; Visit Provider Podiatrist
DX: R20.2 Paresthesia of skin (principal); R22.0 Localized swelling, mass and lump, head
CPT/HCPCS: 95886; 95911

== ENCOUNTER → 2023-11-29 | Outpatient (CLI) | payer BC, SELFPAY ==
--- NOTE | 2023-11-29 13:46 | RAD_ITS ---
STUDY: X-RAY - LUMBAR SPINE REASON FOR EXAM: Female, 58 years old. Idiopathic neuropathy. TECHNIQUE: 5 view(s) of the lumbar spine were obtained. COMPARISON: None FINDINGS: Osteopenia. Slight reversal of the normal lordosis. Minimal rotatory levoscoliosis. Normal vertebral alignment. Diffuse mild lower thoracic and lumbosacral facet sclerosis. Mild loss of height of the L2 vertebral body. Minimal intervertebral disc space narrowing diffusely without significant osteophyte formation. Metallic artifact projected over the right ilium. RAD/L/S Spine Min 4 Views IMPRESSION: Osteopenia with mild loss of height of the L2 vertebral body and mild lower thoracic and lumbosacral spondylosis. Electronically Signed: Ba Hernandez MD at 14:47 EDT ,
== END | disposition home or self-care (01) ==
LOC: MTRAD 13:45
PROVIDERS: PCP Family Medicine; Referring Provider Podiatrist; Visit Provider Podiatrist
DX: G60.8 Other hereditary and idiopathic neuropathies (principal)
CPT/HCPCS: 72110

== ENCOUNTER → 2024-01-25 | Outpatient (CLI) | payer BC, SELFPAY ==
[2024-01-25 10:06] LABS: Absolute Lymphocyte Count 3.15 X10^3/uL (0.83-4.51); Absolute Neutrophil Count 5.8 X10^3/uL (2.0-7.7); Basophil# 0.03 X10^3/uL; Basophil% 0.3 % (0-1); Eosinophil# 0.03 X10^3/uL; Eosinophils% 0.3 % (0-5); Hematocrit 40.1 % (37-47); Lymphocyte # 3.15 X10^3/ul (0.83-4.51); Lymphocyte % 31.7 % (19-41); Mean Corp Hgb Conc 32.4 g/dL (32-36); Mean Corpuscular Hgb 32.2 pg (27.0-32.0); Mean Corpuscular Volume 99.3 fL (81-99); Mean Platelet Vol. 9.1 fl (6.2-12.0); Monocyte# 0.94 X10^3/uL; Monocyte% 9.5 % (0-10); NRBC Flagged by Analyzer 0 % (0-5); Neutrophil # 5.77 X10^3/uL (2.7-7.7); Platelet Count 343 K/mm3 (150-450); RBC Distribution Width CV 14.3 % (11.6-14.6); RBC Distribution Width SD 51.9 fl (35.1-43.9); Red Blood Count 4.04 M/mm3 (4.2-5.4); White Blood Count 9.9 K/mm3 (4.4-11.0)
[2024-01-25 10:47] LABS: AST(SGOT) 15 U/L (15-37); Alanine Aminotransfer ALT/SGPT 30 U/L (13-56); Albumin, Serum 3.6 g/dL (3.2-5.0); Alkaline Phosphatase 62 U/L (45-117); Anion Gap 7 (5-15); BUN 26 mg/dL (7-18); BUN/Creat Ratio 28.9 RATIO (10-20); Chloride 109 mmol/L (98-107); Cholesterol 194 mg/dL (200); EST Glomerular Filtration Rate 68 mL/min (>60); Est Glom Filt Rate - Afr Amer 83 mL/min (>60); Estradiol < 11.0 pg/mL; Globulin 3.6 g/dL (2.2-4.2); Glucose 93 mg/dL (74-106); High Density Lipoprotein 54 mg/dL; Potassium 3.6 mmol/L (3.5-5.1); Protein, Total 7.2 g/dL (6.4-8.2); Sodium Level 142 mmol/L (136-145); Triglycerides 103 mg/dL; Very Low Density Lipoprotein 21 mg/dL (5-40)
[2024-01-25 14:09] LABS: Hemoglobin A1c 5.2 % (3.8-5.6)
[2024-01-26 08:12] LABS: PROGESTERONE <0.1 ng/mL (.)
== END | disposition home or self-care (01) ==
LOC: MFPLAB 08:20
PROVIDERS: PCP Family Medicine; Referring Provider Family Medicine; Visit Provider Family Medicine
DX: R63.5 Abnormal weight gain (principal); Z78.0 Asymptomatic menopausal state
CPT/HCPCS: 36415; 80053; 80061; 82670; 83036; 84144; 84439; 84443; 85025

== ENCOUNTER → 2024-07-29 | Outpatient (CLI) | payer BC, SELFPAY | END | disposition home or self-care (01) | LOC: LABSPEC 07:59 | PROVIDERS: PCP Family Medicine; Visit Provider Nurse Practitioner Family | DX: R30.0 Dysuria (principal) | CPT/HCPCS: 87086; 87088 ==

== ENCOUNTER → 2024-09-03 | Outpatient (CLI) | payer BC, SELFPAY ==
--- NOTE | 2024-09-03 07:41 | BI_ITS ---
EXAM: PROCEDURE: MA Mammogram Digital Screen CLINICAL HISTORY: Screening COMPARISON: Mammogram studies dated 08/15/2023 and 03/24/2022 TECHNIQUE: A bilateral screening mammogram was obtained with MLO and CC views of both breasts with digital breast tomosynthesis. BREAST CANCER RISK ASSESSMENT: Does not appear to have been calculated. FINDINGS: No suspicious masses, suspicious calcifications or other suspicious mammogram findings are seen in either breast. A stable 2 mm well-circumscribed isodense mass in the superior outer, far posterior aspect of the left breast is noted. CONCLUSION: Right Breast: BI-RADS category 1, negative. Left Breast: BI-RADS category 2, benign findings Breast Composition: The breasts are almost entirely fatty. Recommendation: Annual screening mammography Thank you for referring your patient to the [facility], if you have any questions, please call us at the performing site listed at the top of the report. [facility] [phone], [facility] , [facility] and [facility] . Reading Location: [id number]
== END | disposition home or self-care (01) ==
PROVIDERS: PCP Family Medicine; Referring Provider Family Medicine; Visit Provider Family Medicine
DX: Z12.31 Encounter for screening mammogram for malignant neoplasm of breast (principal)
CPT/HCPCS: 77063; 77067

== ENCOUNTER → 2024-10-01 | Outpatient (CLI) | payer BC, SELFPAY ==
--- NOTE | 2024-10-01 07:16 | EKG12_ITS ---
Test Reason : PREOP Blood Pressure : */* mmHG Vent. Rate : 87 BPM Atrial Rate : 87 BPM P-R Int : 136 ms QRS Dur : 68 ms QT Int : 370 ms P-R-T Axes : 62 17 56 degrees QTcB Int : 445 ms Normal sinus rhythm Normal ECG Confirmed by ALONSO COHEN, ESTHER ([id number]), purchasing expeditor CANDE WARREN ([id number]) on 10/02/2024 7:55:37 AM Referred By: Saul Bazan Confirmed By: ESTHER GUPTA MD
== END | disposition home or self-care (01) ==
LOC: PSN 07:15
PROVIDERS: PCP Family Medicine; Referring Provider Student in an Organized Health Care Education/Training Program; Visit Provider Student in an Organized Health Care Education/Training Program
DX: Z01.818 Encounter for other preprocedural examination (principal)
CPT/HCPCS: 93005

== ENCOUNTER → 2024-10-31 | Outpatient (CLI) | payer BC, SELFPAY ==
[2024-10-31 10:42] LABS: Absolute Lymphocyte Count 2.48 X10^3/uL (0.83-4.51); Absolute Neutrophil Count 2.7 X10^3/uL (2.0-7.7); Basophil# 0.05 X10^3/uL; Basophil% 0.8 % (0-1); Eosinophils% 3.3 % (0-5); Hemoglobin 13.9 g/dL (12.0-15.0); Lymphocyte # 2.48 X10^3/ul (0.83-4.51); Lymphocyte % 40.6 % (19-41); Mean Corp Hgb Conc 32.3 g/dL (32-36); Mean Corpuscular Hgb 31.4 pg (27.0-32.0); Mean Corpuscular Volume 97.3 fL (81-99); Mean Platelet Vol. 9.2 fl (6.2-12.0); Monocyte% 11.5 % (0-10); NRBC Flagged by Analyzer 0 % (0-5); Neutrophil # 2.67 X10^3/uL (2.7-7.7); Neutrophil % 43.6 % (47-70); Platelet Count 259 K/mm3 (150-450); RBC Distribution Width CV 13.2 % (11.6-14.6); RBC Distribution Width SD 47.4 fl (35.1-43.9); Red Blood Count 4.42 M/mm3 (4.2-5.4); White Blood Count 6.1 K/mm3 (4.4-11.0)
[2024-10-31 12:17] LABS: ALB/GLOB Ratio 1.4 RATIO (0.9-2.4); AST(SGOT) 34 U/L (<=31); Alanine Aminotransfer ALT/SGPT 44 U/L (<=34); Albumin, Serum 4.2 g/dL (3.5-5.0); Alkaline Phosphatase 65 U/L (35-104); Anion Gap 10 (5-15); BUN 18 mg/dL (4-19); BUN/Creat Ratio 21.1 RATIO (10-20); Calcium,Total 9.5 mg/dL (7.6-11.0); Chloride 107 mmol/L (98-108); Creatinine, Serum 0.87 mg/dL (0.70-1.20); EST Glomerular Filtration Rate 77 (>60); Globulin 2.9 g/dL (2.2-4.2); Glucose 77 mg/dL (70-99); Potassium 4.1 mmol/L (3.3-5.1); Protein, Total 7.1 g/dL (5.9-8.4); Sodium Level 142 mmol/L (133-145); Total Bilirubin 0.57 mg/dL (0.00-1.30)
[2024-10-31 12:20] LABS: CRP < 3.00 mg/L (0.0-3.0)
[2024-11-05 10:08] LABS: ANTINUCLEAR ANTIBODIES DIRECT Positive (Negative)
== END | disposition home or self-care (01) ==
PROVIDERS: PCP Family Medicine; Referring Provider Family Medicine; Visit Provider Family Medicine
DX: R76.8 Other specified abnormal immunological findings in serum (principal); R63.0 Anorexia
CPT/HCPCS: 36415; 80053; 84439; 84443; 85025; 86038; 86140

== ENCOUNTER 2024-11-17 16:43 | Observation (INO) | payer BC, SELFPAY ==
[2024-11-17] VITALS (11 sets, daily range): BP systolic 104–152; BP diastolic 72–94; PULSE 72–93; RESP 15–22; TEMP 36.6–37.1; O2SAT 90–98; BMI 25.3; BMI 27.5
--- OUTSIDE RECORDS SUMMARY | 2024-11-17 17:17 | XMS RPT_ITS | CCD ---
Author Organization [facility] Care Team Providers Care Cisco Network Architect Name Role Phone CARMEN, LAMAR P. Unavailable Unavailable CARMEN, LAMAR PVikki Unavailable Unavailable TREVON DERAS Unavailable Unavailable DENISE CHENG Unavailable Unavailable CARMEN, LAMAR PVikki Unavailable Unavailable HECTOR TORRES Unavailable Unavailable CARMEN, LAMAR P. Unavailable Unavailable CARMEN, LAMAR P. Unavailable Unavailable DENISE CHENG Unavailable Unavailable CARMEN, LAMAR PVikki Unavailable Unavailable JEFFREY LEVIN Unavailable Unavailable KERMIT, LAMAR PVikki Unavailable Unavailable Dr. Denise Chegn Primary Care Provider [phone] Dr. Denise Cheng Referring Provider Dr. Cecilio Lopez Attending Provider Dr. Denise Cheng Primary Care Provider Dr. Denise Cheng Referring Provider Dr. Ceciloi Lopez Attending Provider JARED BERNARD Attending Unavailable DENISE CHENG Primary Care Unavailable JARED BERNARD Referring Unavailable DENISE CHENG Primary Care Unavailable Denise Cheng MD Primary Care Provider Dr. Denise Cheng Primary Care Provider Dr. Denise Cheng Referring Provider Iqra OMALLEY, SHAHRAM Bhardwaj Attending Provider Dr. Denise Cheng MD Primary Care Provider Dr. Denise Cheng MD Referring Provider Tasha ZACARIAS-CAdilson Attending Provider Denis ZACARIAS-CFarida Attending Provider Dr. Denise Cheng MD Attending Provider Dr. Saul Bazan DO Attending Provider Dr. Saul Bazan DO Referring Provider [phone] Jaquelin COHEN, Dr. Mondragon Attending Provider Cheng, Denise Primary Care Unavailable Wagner Whitten Attending Unavailable Wagner Whitten Referring Unavailable Cheng, Denise Referring Unavailable Cheng, Denise Primary Care Unavailable Cheng, Denise Attending Unavailable Cheng, Denise Primary Care Unavailable Saul Bazan Attending Unavailable Saul Bazan Referring Unavailable Cheng, Denise Referring Unavailable Cheng, Denise Attending Unavailable Cheng, Denise Primary Care Unavailable Cheng, Denise Primary Care Unavailable Roof RESEARCH ANIMAL ATTENDANT, Adilson Plasencia Attending Unavailable Cheng, Denise Attending Unavailable Cheng, Denise Referring Unavailable Cheng, Denise Primary Care Unavailable Cheng, Denise Primary Care Unavailable Cheng, Denise Attending Unavailable Cheng, Denise Referring Unavailable Cheng, Denise Referring Unavailable Farida Barrios Attending Unavailable Cheng, Denise Primary Care Unavailable Cheng, Denise Referring Unavailable Cheng, Denise Primary Care Unavailable Roof RESEARCH ANIMAL ATTENDANT, Adilson Plasencia Attending Unavailable Ashutosh Yang Attending Unavailable Cehng, Denise Referring Unavailable Cheng, Denise Primary Care Unavailable Giancarlo Hammer Attending Unavailable Cheng, Denise Primary Care Unavailable Saul Bazan Referring Unavailable Allergies Allergy Classification Reported Allergen(s) Allergy Type Date of Onset Reaction(s) Facility (14 sources) Amoxicillin; Translations: [AMOXICILLIN] Drug Allergy 6 [facility] (15 sources) Sulfonamides (Antibiotic); Translations: [SULFA (SULFONAMIDE ANTIBIOTICS)] Allergy to substance 6 [facility] (12 sources) Verapamil Drug Allergy 2 lightheaded dizzy [facility] (12 sources) ZOLMitriptan Drug Allergy 2 ; [facility] (1 source) Amoxicillin Drug Allergy 5 [facility] Repository (1 source) Verapamil Drug Allergy 5 [facility] Repository (1 source) ZOLMitriptan Drug Allergy 5 [facility] Repository Medications Current Medications Medication Drug Class(es) Dates Sig (Normalized) Sig (Original) calcium ascorbate 500 mg oral tablet (12 sources) Start: 09-28-2021 take 1 tablet by mouth once daily Ascorbate Calcium (Vitamin C) 500 mg tablet Active 500 mg PO DAILY September 28, 2021 12:00am DULoxetine 40 mg delayed release oral capsule (20 sources) Serotonin and Norepinephrine Reuptake Inhibitor Start: 09-28-2021 End: 10-06-2021 take 1 capsule by mouth once daily Duloxetine 40 mg capsule,delayed release(DR/EC) Active 40 mg PO DAILY October 06, 2021 2:02pm 1 ml erenumab-aooe 140 mg/ml auto-injector (12 sources) Start: 12-05-2019 inject 140 mg by subcutaneous injection every month Erenumab-Aooe 140 MG/ML auto-injector Active 140 mg SQ EVERY MONTH December 05, 2019 12:00am Start: 12-05-2019 inject 140 mg by sub cutaneous injection every month Erenumab-Aooe Active 140 MG SQ EVERY MONTH December 05, 2019 12:00am magnesium oxide 500 mg oral capsule (13 sources) Start: 10-06-2021 take 2 capsules by mouth once daily Magnesium Oxide 500 mg capsule Active 1000 mg PO DAILY October 06, 2021 12:00am Start: 10-06-2021 take 1000 mg by mouth once you ly Magnesium Oxide Active 1000 MG PO DAILY October 06, 2021 12:00am take 1 capsule by mo ut twice daily magnesium oxide 400 mg cap Take 1 capsule by mouth twice daily. 0 Active Comment on above: Take 1 capsule by mo ut twice daily. 24 hr methylphenidate hydrochloride 27 mg extended release oral tablet (12 sources) Central Nervous System Stimulant Start: 10-02-19 take 1 tablet by mouth once daily Methylphenidate Hcl 27 MG tablet extended release 24hr Active 27 mg PO DAILY October 01, 2018 12:00am Pnv,Calcium 85-Nlsr-Worez Acid ( Vitamin Plus Low Iron) 27 mg iron- 1 mg tablet (12 sources) Start: 09-29-19 Pnv,Calcium 02-Vrto-Ewaof Acid ( Vitamin Plus Low Iron) 27 mg iron- 1 mg tablet Active EACH PO September 28, 2021 10:14am Start: 09-28-2021 Pnv,Calcium 72 -Iron-Folic Acid ( Vitamin Plus Low Iron) 27 mg iron- 1 mg tablet Active NMA PO September 28, 2021 12:00am Start: 09-28-2021 Pnv,Calcium 72 -Iron-Folic Acid ( Vitamin Plus Low Iron) 27 mg iron- 1 mg tablet Active EACH PO September 27, 2021 11:00pm Start: 09-28-2021 Pnv,Calcium 72 -Iron-Folic Acid ( Vitamin Plus Low Iron) 27 mg iron- 1 mg tablet Active EACH PO September 28, 2021 12:00am rizatriptan 10 mg oral tablet (6 sources) Serotonin-1b and Serotonin-1d Receptor Agonist Start: 01-27-2023 Rizatriptan 10 mg tablet Active 10 mg PO .COMPLEX as needed January 27, 2023 12:00am 10 mg orally PRN; traZODone hydrochloride 100 mg oral tablet (20 sources) Serotonin Reuptake Inhibitor Start: 10-01-2018 take 1 tablet by mouth at bedtime Trazodone 100 MG tablet Active 100 mg PO AT BEDTIME October 01, 2018 12:00am Start: 10-01-2018 End: 10-06-2021 take 1 tablet by mouth once daily Trazodone 50 MG tablet Discontinued 50 mg PO DAILY October 01, 2018 12:00am October 06, 2021 2:04pm Comment on above: Take 50 mg by mouth daily at bedtime. 0.5 tablet am, 1 tablet pm Vitamin B Complex (9 sources) Start: 10-06-2021 take 1 tablet by mouth once daily Vitamin B Complex Active 1 TABLET PO DAILY October 06, 2021 2:03pm Start: 10-06-2021 take 1 tablet by mouth once da abril Vitamin B Complex Active 1 TABLET PO DAILY October 05, 2021 11:00pm Start: 10-06-2021 take 1 tablet by mouth once da abril Vitamin B Complex Active 1 TABLET PO DAILY October 06, 2021 12:00am Vitamin B Complex tablet (3 sources) Start: 10-06-2021 Vitamin B Comp herlinda tablet Active 1 {tbl} PO DAILY October 06, 2021 12:00am Completed/Discontinued Medications Medication Drug Class(es) Dates Sig (Normalized) Sig (Original) acetaZOLAMIDE 250 mg oral tablet (1 source) Carbonic Anhydrase Inhibitor take 3 tablets by mouth once daily acetaZOLAMIDE (DIAMOX) 250 mg tablet Take 250 mg by mouth once daily. 3 tablets daily 0 Active Comment on above: Take 250 mg by mouth once daily. 3 tablets daily azithromycin 250 mg oral tablet (9 sources) Macrolide Antimicrobial Start: 04-03-2023 End: 08-10-2024 Azithromycin 250 mg tablet Discontinued 250 mg PO .COMPLEX April 15, 2024 1:00am August 10, 2024 10:38am 2 tablets (500 mg) on day 1, then 1 tablet daily on days 2 through 11 baclofen 10 mg oral tablet (1 source) gamma-Aminobutyric Acid-ergic Agonist baclofen 10 mg tablet Indications: Chronic migraine without aura, with intractable migraine, so stated, without mention of status migrainosus , Drug induced headache, not elsewhere classified(339.3) , Drug induced headache, not elsewhere classified(339.3) , Drug induced headache, not elsewhere classified(339.3) , Drug induced headache, not elsewhere classified(339.3) , Drug induced headache, not elsewhere classified(339.3) Take 10 mg by mouth as needed. 0 Active Comment on above: Take 10 mg by mouth as needed. benzonatate 200 mg oral capsule (9 sources) Non-narcotic Antitussive Start: 04-03-2023 End: 08-10-2024 take 1 capsule by mouth three times daily as needed for cough Benzonatate 200 mg capsule Discontinued 200 mg PO THREE TIMES A DAY as needed for cough April 15, 2024 1:00am August 10, 2024 10:38am cholecalciferol 0.025 mg oral capsule (12 sources) Vitamin D Start: 09-28-2021 End: 10-06-2021 take 1 capsule by mouth once daily Cholecalciferol (Vitamin D3) 25 mcg (1,000 unit) capsule Discontinued 25 ug PO DAILY September 28, 2021 12:00am October 06, 2021 2:02pm citalopram 10 mg oral tablet (1 source) Serotonin Reuptake Inhibitor take 1 tablet by mouth once daily citalopram hydrobromide 10 mg tablet Indications: Chronic migraine without aura, with intractable migraine, so stated, without mention of status migrainosus , Drug induced headache, not elsewhere classified(339.3) , Drug induced headache, not elsewhere classified(339.3) , Drug induced headache, not elsewhere classified(339.3) , Drug induced headache, not elsewhere classified(339.3) , Drug induced headache, not elsewhere classified(339.3) Take 10 mg by mouth once daily. 0 Active Comment on above: Take 10 mg by mouth once daily. diphenhydrAMINE hydrochloride 25 mg oral capsule (1 source) Histamine-1 Receptor Antagonist diphenhydrAMINE (BENADRYL) 25 mg capsule Indications: Chronic migraine without aura, with intractable migraine, so stated, without mention of status migrainosus , Drug induced headache, not elsewhere classified(339.3) , Drug induced headache, not elsewhere classified(339.3) , Drug induced headache, not elsewhere classified(339.3) , Drug induced headache, not elsewhere classified(339.3) , Drug induced headache, not elsewhere classified(339.3) Take 25 mg by mouth as needed. For sleep at HS 0 Active Comment on above: Take 25 mg by mouth as needed. For sleep at HS famotidine 40 mg oral tablet (13 sources) Histamine-2 Receptor Antagonist Start: 06-01-2017 End: 10-06-2021 take 1 tablet by mouth once daily Famotidine 40 MG tablet Discontinued 40 mg PO DAILY June 01, 2017 1:00am October 06, 2021 2:02pm Comment on above: Take 40 mg by mouth once daily. 24 hr fesoterodine fumarate 8 mg extended release oral tablet (1 source) Start: 03-01-2018 take 1 tablet by mouth once daily Fesoterodine (TOVIAZ) 8 mg Tb24 Indications: OAB (overactive bladder) , Urgency of urination Take 1 tablet by mouth once daily. 30 tablet 5 03/01/2018 Active Comment on above: Take 1 tablet by oleksandr once daily. hydrOXYzine hydrochloride 25 mg oral tablet (12 sources) Antihistamine Start: 09-28-2021 End: 10-06-2021 Hydroxyzine Hcl 25 mg tablet Discontinued NMA PO September 28, 2021 12:00am October 06, 2021 2:02pm Start: 09-28-2021 End: 10-06-2021 Hydroxyzine Hcl Discontinued EACH PO September 28, 2021 12:00am October 06, 2021 2:02pm ibuprofen 200 mg oral capsule (1 source) Nonsteroidal Anti-inflammatory Drug Ibuprofen 200 mg cap Indications: Chronic migraine without aura, with intractable migraine, so stated, without mention of status migrainosus , Drug induced headache, not elsewhere classified(339.3) , Drug induced headache, not elsewhere classified(339.3) , Drug induced headache, not elsewhere classified(339.3) , Drug induced headache, not elsewhere classified(339.3) , Drug induced headache, not elsewhere classified(339.3) Take by mouth as needed. 0 Active Comment on above: Take by mouth as nee ded. Magnesium (12 sources) Start: 019 End: take 500 mg by mouth once daily Magnesium Discontinued 500 MG PO DAILY October 01, 2018 1:10pm October 06, 2021 2:02pm Start: 10-01-2018 End: 10-06-2021 Magnesium 200 MG tablet Disc ontinued 500 mg PO DAILY October 01, 2018 12:00am October 06, 2021 2:02pm Start: 10-01-2018 End: 10-06-2021 take 500 mg by mouth once daily Magnesium Discontinued 500 MG PO DAILY September 30, 2018 11:00pm October 06, 2021 1:02pm Start: 10-01-2018 End: 10-06-2021 take 500 mg by mouth once daily Magnesium Discontinued 500 MG PO DAILY October 01, 2018 12:00am October 06, 2021 2:02pm 24 hr mirabegron 50 mg extended release oral tablet (1 source) beta3-Adrenergic Agonist Start: 01-23-2018 take 1 tablet by mouth once daily mirabegron (MYRBETRIQ) 50 mg Tb24 Take 1 tablet by mouth once daily. 30 tablet 11 01/23/2018 Active Comment on above: Take 1 tablet by oleksandr once daily. Multivitamin capsule (1 source) take 1 capsule by mouth once daily Multivitamin capsule Indications: Chronic migraine without aura, with intractable migraine, so stated, without mention of status migrainosus , Drug induced headache, not elsewhere classified(339.3) , Drug induced headache, not elsewhere classified(339.3) , Drug induced headache, not elsewhere classified(339.3) , Drug induced headache, not elsewhere classified(339.3) , Drug induced headache, not elsewhere classified(339.3) Take 1 capsule by mouth once daily. 0 Active Comment on above: Take 1 capsule by mo [facility] once daily. naproxen 250 mg oral tablet (1 source) Nonsteroidal Anti-inflammatory Drug naproxen 250 mg tablet Indications: Chronic migraine without aura, with intractable migraine, so stated, without mention of status migrainosus , Drug induced headache, not elsewhere classified(339.3) , Drug induced headache, not elsewhere classified(339.3) , Drug induced headache, not elsewhere classified(339.3) , Drug induced headache, not elsewhere classified(339.3) , Drug induced headache, not elsewhere classified(339.3) Take 250 mg by mouth as needed. 0 Active Comment on above: Take 250 mg by mouth as needed. nitrofurantoin, macrocrystals 25 mg / nitrofurantoin, monohydrate 75 mg oral capsule (3 sources) Nitrofuran Antibacterial Start: 07-28-2024 End: 08-04-2024 take 1 capsule by mouth every twelve hours at mealtime Nitrofurantoin Monohyd/M-Cryst (Macrobid) 100 mg capsule Discontinued 100 mg PO Q12H 14 7 July 28, 2024 1:00am August 03, 2024 1:00am August 04, 2024 1:13am must administer with a meal/food pantoprazole 20 mg delayed release oral tablet (20 sources) Proton Pump Inhibitor Start: 12-11-2019 End: 01-27-2023 take 2 tablets by mouth once daily, then take 1 tablet by mouth once daily Pantoprazole 20 MG tablet Discontinued 40 mg PO DAILY December 11, 2019 12:00am January 27, 2023 8:07am Take 40mg PO qday x 1 month then ok to switch to 20 mg PO daily if symptoms are controlled Start: 12-11-2019 End: 01-27-2023 take 1 tablet by mouth once daily Pantoprazole 40 MG tablet,delayed release (DR/EC) Discontinued 40 mg PO DAILY 30 December 11, 2019 12:00am January 27, 2023 8:07am Start: 12-11-2019 End: 01-27-2023 take 40 mg by mouth once daily, then take 20 mg by mouth once daily Pantoprazole Discontinued 40 MG PO DAILY December 11, 2019 12:00am January 27, 2023 8:07am Take 40mg PO qday x 1 month then ok to switch to 20 mg PO daily if symptoms are controlled phenazopyridine hydrochloride 100 mg oral tablet (4 sources) Start: 07-28-2024 End: 08-10-2024 take 1 tablet by mouth three times daily as needed for pain Phenazopyridine (Pyridium) 100 mg tablet Discontinued 100 mg PO THREE TIMES A DAY as needed for pain 7 July 28, 2024 1:00am August 10, 2024 10:39am Start: 07-25-2017 take 1 tablet by oleksandr th every eight hours as needed phenazopyridine (PYRIDIUM, GERIDIUM) 200 mg tablet Take 1 tablet by mouth three times daily as needed. 6 tablet 0 07/25/2017 Active Comment on above: Take 1 tablet by oleksandr th three times daily as needed. potassium citrate 5 meq extended release oral tablet (1 source) take 5 mEq by mouth once daily potassium citrate ER (UROCIT-K) 5 mEq (540 mg) TbER Take 5 mEq by mouth once daily. 0 Active Comment on above: Take 5 mEq by mouth once daily. SUMAtriptan 100 mg oral tablet (13 sources) Serotonin-1b and Serotonin-1d Receptor Agonist Start: 10-06-2021 End: 01-27-2023 take 1 tablet by mouth once Sumatriptan Succinate 100 mg tablet Discontinued 100 mg PO ONCE October 06, 2021 12:00am January 27, 2023 8:07am SUMAtriptan (IMI TREX) 50 mg tablet Indications: Chronic migraine without aura, with intractable migraine, so stated, without mention of status migrainosus , Drug induced headache, not elsewhere classified(339.3) , Drug induced headache, not elsewhere classified(339.3) , Drug induced headache, not elsewhere classified(339.3) , Drug induced headache, not elsewhere classified(339.3) , Drug induced headache, not elsewhere classified(339.3) Take 50 mg by mouth as needed. 0 Active Comment on above: Take 50 mg by mouth as needed. Problems Active Problems Problem Classification Problem Date Documented Da te Episodic/Chronic Abdominal pain (13 sources) Abdominal pain; Translations: [Unspecified abdominal pain] Onset: 11-14-2024 10-12-2021 Episodic Immunizations and screening for infectious disease (8 sources) Contact with or exposure to other viral diseases; Translations: [Other specified abnormal immunological findings in serum] Onset: 11-06-2024 04-03-2023 Episodic Joint disorders and dislocations; trauma-related (12 sources) Subluxation complex of cervical vertebra; Translations: [Subluxation complex (vertebral) of cervical region] 10-18-2018 Episodic Other bone disease and musculoskeletal deformities (20 sources) Segmental and somatic dysfunction; Translations: [Segmental and somatic dysfunction of cervical region] 10-22-2018 Episodic Other connective tissue disease (1 source) Plantar fascial fibromatosis; Translations: [Plantar fascial fibromatosis] Onset: 02-01-2023 Episodic Other connective tissue disease (1 source) Plantar fascial fibromatosis; Translations: [Plantar fascial fibromatosis] 02-01-2023 Episodic Other gastrointestinal disorders (12 sources) Splenomegaly; Translations: [Splenomegaly, not elsewhere classified] 10-06-2021 Episodic Other gastrointestinal disorders (3 sources) Splenomegaly, not elsewhere classified; Translations: [Splenomegaly] Episodic Other nervous system disorders (1 source) Other hereditary and idiopathic neuropathies; Translations: [Other hereditary and idiopathic neuropathies] Onset: 12-07-2023 Chronic Other screening for suspected conditions (not mental disorders or infectious disease) (1 source) Encounter for screening mammogram for malignant neoplasm of breast; Translations: [Encounter for screening mammogram for malignant neoplasm of breast] Onset: 09-09-2024 Episodic Other skin disorders (12 sources) Easy bruising; Translations: [Other skin changes] 10-06-2021 Episodic Other skin disorders (2 sources) Other skin changes; Translations: [Other symptoms involving skin and integumentary tissues] Episodic Spondylosis; intervertebral disc disorders; other back problems (18 sources) Degeneration of lumbar intervertebral disc; Translations: [Other intervertebral disc degeneration, lumbar region] 08-10-2020 Chronic Spondylosis; intervertebral disc disorders; other back problems (12 sources) Backache; Translations: [Dorsalgia, unspecified] 02-24-2020 Episodic Past or Other Problems Problem Classification Problem Date Documented Da te Episodic/Chronic Genitourinary symptoms and ill-defined conditions (4 sources) Dysuria; Translations: [Dysuria] Onset: 08-12-2024 07-28-2024 Episodic Other nutritional; endocrine; and metabolic disorders (1 source) Abnormal weight gain; Translations: [Abnormal weight gain] Onset: 02-15-2024 Episodic Other upper respiratory infections (14 sources) Acute sinusitis; Translations: [Acute sinusitis, unspecified] Onset: 08-10-2024 04-03-2023 Episodic Urinary tract infections (4 sources) Urinary tract infectious disease; Translations: [Urinary tract infection, site not specified] Onset: 07-28-2024 07-28-2024 Episodic Results Test Name Value Interpretation Reference Range Facility ANTINUCLEAR ANTIBODIES DIREC Ton 11-05-2024 BLAKE,DIRECT Positive Abnormal Negative [facility] Comment on above: Result Comment: Perf ormed at: - [facility] [address] [id number] Care Mgr: Dominick De La Rosa PhD, Phone: [phone] Performed By: #### L 500.4050, L506.0400, L100.0100, L501.4520, L3100.5475, L501.2510 ####[facility] [id number] [place], [place], [id number] Absolute lymphocyte countOrd ered By: Denise Cheng on 10-31-2024 Lymphocytes Auto (Unsp spec) [#/Vol] 2.48 10*3/uL 0.83-4.51 [facility] Absolute neutrophil countOrd ered By: Denise Cheng on 10-31-2024 Neutrophils (Bld) [#/Vol] 2.7 10*3/uL 2.0-7.7 [facility] Anion gap in Serum or Plasma Ordered By: Denise Cheng on 10-31-2024 Anion gap [Moles/Vol] 10 mmol/L 5-15 [facility] Automated lymphocyte count a s percentage of total leukocytesOrdered By: Denise Cheng on 10-31-2024 Lymphocytes/100 WBC Auto (Unsp spec) 40.6 % -41 [facility] BUN/creatinine ratioOrdered By: Denise Cheng on 10-31-2024 Urea nitrogen/Creatinine [Mass ratio] 21.1 mg/mg High 10-20 [facility] Basophil percentageOrdered B y: Denise Cheng on 10-31-2024 Basophils/100 WBC (Bld) 0.8 % 0-1 [facility] Bilirubin, totalOrdered By: Denise Cheng on 10-31-2024 Bilirubin [Mass/Vol] 0.57 mg/dL 0.00-1.30 [facility] CBC W/Diff, Automatedon 10-11 Absolute Lymph 2.48 X10 3/uL Normal 0.83-4.51 [facility] Comment on above: Performed By: #### L 500.4050, L506.0400, L100.0100, L501.9520, L3100.5475, L501.6710 ####[facility] [id number] [place], [address] Absolute Neut 2.7 X10 3/uL Normal 2.0-7.7 [facility] Comment on above: Performed By: #### L 500.4050, L506.0400, L100.0100, L501.9520, L3100.5475, L501.6710 ####[facility] [id number] [place], [address] Basophils/100 WBC (Bld) 0.8 % Normal 0-1 [facility] Comment on above: Performed By: #### L 500.4050, L506.0400, L100.0100, L501.9520, L3100.5475, L501.6710 ####[facility] [id number] [place], [address] Eosinophils/100 WBC (Bld) 3.3 % Normal 0-5 [facility] Comment on above: Performed By: #### L 500.4050, L506.0400, L100.0100, L501.9520, L3100.5475, L501.6710 ####[facility] [id number] [place], [address] Erythrocyte distribution width (RBC) [Ratio] 13.2 % Normal 11.6-14.6 [facility] Comment on above: Performed By: #### L 500.4050, L506.0400, L100.0100, L501.9520, L3100.5475, L501.6710 ####[facility] [id number] [place], [address] Hematocrit (Bld) [Volume fraction] 43.0 % Normal 37-47 [facility] Comment on above: Performed By: #### L 500.4050, L506.0400, L100.0100, L501.9520, L3100.5475, L501.6710 ####[facility] [id number] [place], [address] Hemoglobin (Bld) [Mass/Vol] 13.9 g/dL Normal 12.0-15.0 [facility] Comment on above: Performed By: #### L 500.4050, L506.0400, L100.0100, L501.9520, L3100.5475, L501.6710 ####[facility] [id number] [place], [address] IG% 0.200 Normal 0.0-0.9 [facility] Comment on above: Result Comment: IG% - Immature Granulocytes (promyelocytes, myelocytes and metamyelocytes) > 1% indicates that a LEFT SHIFT is Present. Performed By: #### L 500.4050, L506.0400, L100.0100, L501.9520, L3100.5475, L501.6710 ####[facility] [address] [place], [address] Lymphocytes/100 WBC (Bld) 40.6 % Normal 19-41 [facility] Comment on above: Performed By: #### L 500.4050, L506.0400, L100.0100, L501.9520, L3100.5475, L501.6710 ####[facility] [address] [place], [address] MCH (RBC) [Entitic mass] 31.4 pg Normal 27.0-32.0 [facility] Comment on above: Performed By: #### L 500.4050, L506.0400, L100.0100, L501.9520, L3100.5475, L501.6710 ####[facility] [address] [place], [address] MCHC (RBC) [Mass/Vol] 32.3 g/dL Normal 32-36 [facility] Comment on above: Performed By: #### L 500.4050, L506.0400, L100.0100, L501.9520, L3100.5475, L501.6710 ####[facility] [address] [place], [address] MCV (RBC) [Entitic vol] 97.3 fL Normal 81-99 [facility] Comment on above: Performed By: #### L 500.4050, L506.0400, L100.0100, L501.9520, L3100.5475, L501.6710 ####[facility] [address] [place], [address] Monocytes/100 WBC (Bld) 11.5 % High 0-10 [facility] Comment on above: Performed By: #### L 500.4050, L506.0400, L100.0100, L501.9520, L3100.5475, L501.6710 ####[facility] [address] [place], [address] Neutrophils/100 WBC (Bld) 43.6 % Low 47-70 [facility] Comment on above: Performed By: #### L 500.4050, L506.0400, L100.0100, L501.9520, L3100.5475, L501.6710 ####[facility] [address] [place], [address] Nucleated RBC (Bld) [#/Vol] 0 10*3/uL Normal 0-5 [facility] Comment on above: Performed By: #### L 500.4050, L506.0400, L100.0100, L501.9520, L3100.5475, L501.6710 ####[facility] [address] [place], [address] Platelet mean volume (Bld) [Entitic vol] 9.2 fL Normal 6.2-12.0 [facility] Comment on above: Performed By: #### L 500.4050, L506.0400, L100.0100, L501.9520, L3100.5475, L501.6710 ####[facility] [address] [place], [address] Platelets (Bld) [#/Vol] 259 10*3/uL Normal 150-450 [facility] Comment on above: Performed By: #### L 500.4050, L506.0400, L100.0100, L501.9520, L3100.5475, L501.6710 ####[facility] [address] [place], [address] RBC (Bld) [#/Vol] 4.42 10*6/uL Normal 4.2-5.4 [facility] Comment on above: Performed By: #### L 500.4050, L506.0400, L100.0100, L501.9520, L3100.5475, L501.6710 ####[facility] [address] [place], [address] RDW SD 47.4 fl High 35.1-43.9 [facility] Comment on above: Performed By: #### L 500.4050, L506.0400, L100.0100, L501.9520, L3100.5475, L501.6710 ####[facility] [address] [place], [address] WBC (Bld) [#/Vol] 6.1 10*3/uL Normal 4.4-11.0 [facility] Comment on above: Performed By: #### L 500.4050, L506.0400, L100.0100, L501.9520, L3100.5475, L501.6710 ####[facility] [address] [place], [address] CRPon 10-31-2024 C-REACTIVE PROT < 3.00 Normal 0.0-3.0 [facility] Comment on above: Performed By: #### L 500.4050, L506.0400, L100.0100, L501.9520, L3100.5475, L501.6710 ####[facility] [address] [place], [address] Carbon dioxide, total [Moles /volume] in Central venous bloodOrdered By: Denise Cheng on 10-31-2024 CO2 [Moles/Vol] 25.0 mmol/L 21.0-32.0 [facility] Chloride assayOrdered By: Nadir Cheng on 10-31-2024 Chloride [Moles/Vol] 107 mmol/L 98-108 [facility] Comprehensive Metabolic Prof ilon 10-31-2024 Albumin [Mass/Vol] 4.2 g/dL Normal 3.5-5.0 [facility] Comment on above: Performed By: #### L 500.4050, L506.0400, L100.0100, L501.9520, L3100.5475, L501.6710 ####[facility] [address] [place], [address] Albumin/Globulin [Mass ratio] 1.4 {ratio} Normal 0.9-2.4 [facility] Comment on above: Performed By: #### L 500.4050, L506.0400, L100.0100, L501.9520, L3100.5475, L501.6710 ####[facility] [address] [place], [address] ALK PHOS 65 U/L Normal 35-104 [facility] Comment on above: Performed By: #### L 500.4050, L506.0400, L100.0100, L501.9520, L3100.5475, L501.6710 ####[facility] [address] [place], [address] ALT [Catalytic activity/Vol] 44 U/L High <=34 [facility] Comment on above: Performed By: #### L 500.4050, L506.0400, L100.0100, L501.9520, L3100.5475, L501.6710 ####[facility] [address] [place], [address] AST [Catalytic activity/Vol] 34 U/L High <=31 [facility] Comment on above: Performed By: #### L 500.4050, L506.0400, L100.0100, L501.9520, L3100.5475, L501.6710 ####[facility] [address] [place], [address] Bilirubin [Mass/Vol] 0.57 mg/dL Normal 0.00-1.30 [facility] Comment on above: Performed By: #### L 500.4050, L506.0400, L100.0100, L501.9520, L3100.5475, L501.6710 ####[facility] [address] [place], [address] BUN/CRE 21.1 RATIO High 10-20 [facility] Comment on above: Performed By: #### L 500.4050, L506.0400, L100.0100, L501.9520, L3100.5475, L501.6710 ####[facility] [address] [place], [address] Calcium [Mass/Vol] 9.5 mg/dL Normal 7.6-11.0 [facility] Comment on above: Performed By: #### L 500.4050, L506.0400, L100.0100, L501.9520, L3100.5475, L501.6710 ####[facility] [address] [place], [address] Chloride [Moles/Vol] 107 mmol/L Normal 98-108 [facility] Comment on above: Performed By: #### L 500.4050, L506.0400, L100.0100, L501.9520, L3100.5475, L501.6710 ####[facility] [address] [place], [address] CO2 [Moles/Vol] 25.0 mmol/L Normal 21.0-32.0 [facility] Comment on above: Performed By: #### L 500.4050, L506.0400, L100.0100, L501.9520, L3100.5475, L501.6710 ####[facility] [address] [place], [address] Creatinine [Mass/Vol] 0.87 mg/dL Normal 0.70-1.20 [facility] Comment on above: Performed By: #### L 500.4050, L506.0400, L100.0100, L501.9520, L3100.5475, L501.6710 ####[facility] [address] [place], [address] GAP 10 Normal 5-15 [facility] Comment on above: Performed By: #### L 500.4050, L506.0400, L100.0100, L501.9520, L3100.5475, L501.6710 ####[facility] [address] [place], [address] GFR/1.73 sq M.predicted among non-blacks MDRD (S/P/Bld) [Vol rate/Area] 77 mL/min/{1.73_m2} Normal >60 [facility] Comment on above: Result Comment: mL/m in/1.73m2 CKD-EPI Creatinine Equation (2020) Performed By: #### L 500.4050, L506.0400, L100.0100, L501.9520, L3100.5475, L501.6710 ####[facility] [address] [place], [address] Globulin (S) [Mass/Vol] 2.9 g/dL Normal 2.2-4.2 [facility] Comment on above: Performed By: #### L 500.4050, L506.0400, L100.0100, L501.9520, L3100.5475, L501.6710 ####[facility] [address] [place], [address] Glucose [Mass/Vol] 77 mg/dL Normal 70-99 [facility] Comment on above: Performed By: #### L 500.4050, L506.0400, L100.0100, L501.9520, L3100.5475, L501.6710 ####[facility] [address] [place], [address] Potassium [Moles/Vol] 4.1 mmol/L Normal 3.3-5.1 [facility] Comment on above: Performed By: #### L 500.4050, L506.0400, L100.0100, L501.9520, L3100.5475, L501.6710 ####[facility] [address] [place], [address] Sodium [Moles/Vol] 142 mmol/L Normal 133-145 [facility] Comment on above: Performed By: #### L 500.4050, L506.0400, L100.0100, L501.9520, L3100.5475, L501.6710 ####[facility] [address] [place], [address] T PROT 7.1 g/dL Normal 5.9-8.4 [facility] Comment on above: Performed By: #### L 500.4050, L506.0400, L100.0100, L501.9520, L3100.5475, L501.6710 ####[facility] [address] [place], [address] Urea nitrogen [Mass/Vol] 18 mg/dL Normal 4-19 [facility] Comment on above: Performed By: #### L 500.4050, L506.0400, L100.0100, L501.9520, L3100.5475, L501.6710 ####[facility] [address] [place], [address] Eosinophil percentageOrdered By: Denise Cheng on 10-31-2024 Eosinophils/100 WBC (Bld) 3.3 % 0-5 [facility] Erythrocyte distribution wid th ratioOrdered By: Denise Cheng on 10-31-2024 Erythrocyte distribution width (RBC) [Ratio] 13.2 % 11.6-14.6 [facility] Erythrocyte distribution wid th standard deviationOrdered By: Denise Cheng on 10-31-2024 Erythrocyte distribution width (RBC) [Ratio] 47.4 fl High 35.1-43.9 [facility] Glomerular filtration rate ( GFR) estimation/1.73 sq m using serum, plasma, or whole bOrdered By: Denise Cheng on 10-31-2024 GFR/1.73 sq M.predicted among non-blacks MDRD (S/P/Bld) [Vol rate/Area] 77 mL/min/{1.73_m2} >60 [facility] Comment on above: mL/min/1.73m2 CKD-EP I Creatinine Equation (2020) Hematocrit Auto (Bld) [Volum e fraction]Ordered By: Denise Cheng on 10-31-2024 Hematocrit (Bld) [Volume fraction] 43.0 % 37-47 [facility] Hemoglobin measurementOrdere d By: Denise Cheng on 10-31-2024 Hemoglobin (Bld) [Mass/Vol] 13.9 g/dL 12.0-15.0 [facility] Immature granulocytes/100 WB C Auto (Bld)Ordered By: Denise Cheng on 10-31-2024 Immature granulocytes/100 WBC (Bld) 0.200 % 0.0-0.9 [facility] Comment on above: IG% - Immature Granu locytes (promyelocytes, myelocytes and metamyelocytes) > 1% indicates that a LEFT SHIFT is Present. Laboratory - Chemistry and C hemistry - challengeOrdered By: Denise Cheng on 10-31-2024 AST [Catalytic activity/Vol] 34 U/L High <32 [facility] MCV (mean corpuscular volume ) determinationOrdered By: Denise Cheng on 10-31-2024 MCV (RBC) [Entitic vol] 97.3 fL 81-99 [facility] Mean corpuscular hemoglobin (MCH) determinationOrdered By: Denise Cheng on 10-31-2024 MCH (RBC) [Entitic mass] 31.4 pg 27.0-32.0 [facility] Mean corpuscular hemoglobin concentration (MCHC) determinationOrdered By: Denise Cheng on 10-31-2024 MCHC (RBC) [Mass/Vol] 32.3 g/dL 32-36 [facility] Mean platelet volume determi nationOrdered By: Denise Cheng on 10-31-2024 Platelet mean volume (Bld) [Entitic vol] 9.2 fL 6.2-12.0 [facility] Monocyte percentageOrdered B y: Denise Cheng on 10-31-2024 Monocytes/100 WBC (Bld) 11.5 % High 0-10 [facility] Neutrophil percentageOrdered By: Denise Cheng on 10-31-2024 Neutrophils/100 WBC (Bld) 43.6 % Low 47-70 [facility] Nucleated red blood cell per centageOrdered By: Denise Cheng on 10-31-2024 Nucleated RBC/100 WBC (Bld) [Ratio] 0 % 0-5 [facility] Platelet countOrdered By: Nadir Cheng on 10-31-2024 Platelets (Bld) [#/Vol] 259 10*3/uL 150-450 [facility] Potassium measurement (mass/ volume)Ordered By: Denise Cheng on 10-31-2024 Potassium (Unsp spec) [Mass/Vol] 4.1 mmol/L 3.3-5.1 [facility] RBC Auto (Bld) [#/Vol]Ordere d By: Denise Cheng on 10-31-2024 RBC (Bld) [#/Vol] 4.42 10*6/uL 4.2-5.4 [facility] Serum creatinine measurement (mass/volume)Ordered By: Denise Cheng on 10-31-2024 Creatinine [Mass/Vol] 0.87 mg/dL 0.70-1.20 [facility] Serum globulin measurementOr dered By: Denise Cheng on 10-31-2024 Globulin (S) [Mass/Vol] 2.9 g/dL 2.2-4.2 [facility] Serum glucose measurement (m ass/volume)Ordered By: Denise Cheng on 10-31-2024 Glucose [Mass/Vol] 77 mg/dL 70-99 [facility] Serum or plasma C reactive p rotein measurement (mass/volume)Ordered By: Denise Cheng on 10-31-2024 CRP [Mass/Vol] mg/L 0.0-3.0 [facility] Serum or plasma alanine turcios otransferase (ALT) measurementOrdered By: Denise Cheng on 10-31-2024 ALT [Catalytic activity/Vol] 44 U/L High <35 [facility] Serum or plasma albumin hannah urement (mass/volume)Ordered By: Denise Cheng on 10-31-2024 Albumin [Mass/Vol] 4.2 g/dL 3.5-5.0 [facility] Serum or plasma albumin/glob ulin mass ratioOrdered By: Denise Cheng on 10-31-2024 Albumin/Globulin [Mass ratio] 1.4 {ratio} 0.9-2.4 [facility] Serum or plasma alkaline daya sphatase measurementOrdered By: Denise Cheng on 10-31-2024 ALP [Catalytic activity/Vol] 65 U/L 35-104 [facility] Serum or plasma calcium hannah urement (mass/volume)Ordered By: Denise Cheng on 10-31-2024 Calcium [Mass/Vol] 9.5 mg/dL 7.6-11.0 [facility] Serum or plasma urea nitroge n measurement (mass/volume)Ordered By: Denise Cheng on 10-31-2024 Urea nitrogen [Mass/Vol] 18 mg/dL 4-19 [facility] Sodium levelOrdered By: Denise Cheng on 10-31-2024 Sodium [Moles/Vol] 142 mmol/L 133-145 [facility] T4 Free Directon 10-31-2024 T4 FREE DIRECT 1.10 ng/dL Normal 0.76-1.46 [facility] Comment on above: Performed By: #### L 500.4050, L506.0400, L100.0100, L501.9520, L3100.5475, L501.6710 ####[facility] [address] [place], [place], [id number] T4 freeOrdered By: Denise plasencia on 10-31-2024 Free T4 [Mass/Vol] 1.10 ng/dL 0.76-1.46 [facility] TSH DL <= 0.005 mIU/L QnOrde red By: Denise Cheng on 10-31-2024 TSH Qn 2.600 uIU/mL 0.300-4.20 0 [facility] Thyroid Stim Hormone (TSH)on 10-31-2024 TSH 2.600 uIU/mL Normal 0.300-4.20 0 [facility] Comment on above: Performed By: #### L 500.4050, L506.0400, L100.0100, L501.9520, L3100.5475, L501.6710 ####[facility] [address] [place], [place], [id number] Total proteinOrdered By: Martha Cheng on 10-31-2024 Protein [Mass/Vol] 7.1 g/dL 5.9-8.4 [facility] White blood cell (WBC) count Ordered By: Denise Cheng on 10-31-2024 WBC (Bld) [#/Vol] 6.1 10*3/uL 4.4-11.0 [facility] Electrocardiogram reportOrde red By: Giancarlo Hammer on 10-02-2024 EKG study [facility] Cardi[facility] [address] [place] [address] 12 Lead EKG 10/01/24 0723 MR#: [id number] Acct: [id number] Name: YUMIKO SINGH Rep #:[id number] : 1965 58 From: Giancarlo Hammer MD Attending Dr: Dr. Saul Bazan DO Status: REG CLI Ordering Dr: Saul Bazan DO Date: 10/01/24 Location: PSN Sex: F C Admitted: Test Reason : PREOP Blood Pressure : */* mmHG Vent. Rate : 87 BPM Atrial Rate : 87 BPM P-R Int : 136 ms QRS Dur : 68 ms QT Int : 370 ms P-R-T Axes : 62 17 56 degrees QTcB Int : 445 ms Normal sinus rhythm Normal ECG Confirmed by GIANCARLO HAMMER MD ([id number]), editorial specialist CANDE WARREN ([id number]) on 10/02/2024 7:55:37 AM Referred By: Saul Bazan Confirmed By: GIANCARLO HAMMER MD 10/02/24 0755 Date _ Giancarlo Hammer MD CC: Dr. Denise Cheng MD; Dr. Saul Bazan DO ~ Signed [facility] Other Phone: 12 Lead EKGon 10-01-2024 12 Lead EKG [facility] Cardiovascular Services [address] [place] [address] 12 Lead EKG 10/01/24 0723 MR#: [id number] Acct: [id number] Name: YUMIKO SINGH Rep #: [id number] : 1965 58 From: Giancarlo Hammer MD Attending Dr: Dr. Saul Bazan DO Status: REG CLI Ordering Dr: Saul Bazan DO Date: 10/01/24 Location: PSN Sex: F C Admitted: Test Reason : PREOP Blood Pressure : */* mmHG Vent. Rate : 87 BPM Atrial Rate : 87 BPM P-R Int : 136 ms QRS Dur : 68 ms QT Int : 370 ms P-R-T Axes : 62 17 56 degrees QTcB Int : 445 ms Normal sinus rhythm Normal ECG Confirmed by GIANCARLO HAMMER MD ([id number]), editorial specialist ELIZABTEHCANDE MORRIS ([id number]) on 10/02/2024 7:55:37 AM Referred By: Saul Bazan Confirmed By: GIANCARLO HAMMER MD 10/02/24 0755 Date Giancarlo Hammer MD CC: Dr. Denise Cheng MD; Dr. Saul Bazan DO Signed Normal [facility] Breast imaging reportOrdered By: Cielo Ignacio on 09-04-2024 Study report [facility] Imaging Services [address] [place] [address] SCRN MAMM (CAD)W/DINH BILAT MR#: [id number] Acct: [id number] Name: YUMIKO SINGH Rep #: [id number] : 1965 F 58 From: Stephane Ignacio DO PCP: Dr. Denise Cheng MD Status: REG CLI Study:SCRN MAMM (CAD)W/DINH BILAT Date of Exa m: 09/03/24 Exam# [id number] Ordering Dr: Nadir Cheng MD EXAM: PROCEDURE: MA Mammogram Digital Screen CLINICAL HISTORY: Screening COMPARISON: Mammogram studies dated 08/15/2023 and 03/24/2022 TECHNIQUE: A bilateral screening mammogram was obtained with MLO and CC views of both breasts with digital breast tomosynthesis. BREAST CANCER RISK ASSESSMENT: Does not appear to have been calculated. FINDINGS: No suspicious masses, suspicious calcifications or other suspicious mammogram findings are seen in either breast. A stable 2 mm well-circumscribed isodense mass in the superior outer, far posterior aspect of the left breast is noted. CONCLUSION: Right Breast: BI-RADS category 1, negative. Left Breast: BI-RADS category 2, benign findings Breast Composition: The breasts are almost entirely fatty. Recommendation: Annual screening mammography Thank you for referring your patient to the [facility], if you have any questions, please call us at the performing site listed at the top of the report. [facility] , [facility] , [facility] and [facility] . Reading Location: [facility] CC: Dr. Denise Cheng MD ~ [place] Worker: Signed [facility] SCRN MAMM (CAD)W/DINH BILATo n 09-03-2024 SCRN MAMM (CAD)W/DINH BILAT [facility] Imaging Services [address] [place], [place] [address] SCRN MAMM (CAD)W/DINH BILAT MR#: [id number] Acct: [id number] Name: YUMIKO SINGH Rep #: [id number] : 1965 F 58 From: Cielo aHrdy PCP: Dr. Denise Cheng MD Status: REG CLI Study: SCRN MAMM (CAD)W/DINH BILAT Date of Exam: 08/11 11/03 Exam# [id number] Ordering Dr: Denise Cheng MD EXAM: PROCEDURE: MA Mammogram Digital Screen CLINICAL HISTORY: Screening COMPARISON: Mammogram studies dated 08/15/2023 and 03/24/2022 TECHNIQUE: A bilateral screening mammogram was obtained with MLO and CC views of both breasts with digital breast tomosynthesis. BREAST CANCER RISK ASSESSMENT: Does not appear to have been calculated. FINDINGS: No suspicious masses, suspicious calcifications or other suspicious mammogram findings are seen in either breast. A stable 2 mm well-circumscribed isodense mass in the superior outer, far posterior aspect of the left breast is noted. CONCLUSION: Right Breast: BI-RADS category 1, negative. Left Breast: BI-RADS category 2, benign findings Breast Composition: The breasts are almost entirely fatty. Recommendation: Annual screening mammography Thank you for referring your patient to the [facility], if you have any questions, please call us at the performing site listed at the top of the report. [facility] , [facility] , [facility] and [facility] . Reading Location: [id number] CC: Dr. Denise Cheng MD [place] Worker: Signed Normal [facility] Urgent Care Visit Reporton 0 08-10-2024 Urgent Care Visit Report [facility] [address], [address] [place] [address] OFFICE VISIT Date of Service: 08/10/24 MR#: [id number] Acct: [id number] Name: YUMIKO SINGH Rep #: [id number] : 1965 Provider: ILENE Barrios Age/Sex: 58/F Location: [facility] Status: Signed Intake Vital Signs 07/28/24 12:43 08/10/24 09:37 Height 5 ft 9 in BP 116/68 118/60 Blood Pressure Location Lt brachial Lt brachial Position Sitting Sitting Respiration 12 16 Pulse 96 85 Pulse Source NIBP NIBP Temp 98.1 F 99.1 F Temp Source Oral Oral Pulse Oximetry (%) 98 97 Oxygen Delivery Method room air room air Intake Visit Reasons: COUGH/ST/FEVER/CONGESTION Chief Complaint: cough, ST, fever, congest [employer] Tr[employer] Required: No Is patient in pain?: No Allergies amoxicillin Allergy (Verified 08/10/24 09:38) Hives Sulfa (Sulfonamide Antibiotics) Allergy (Verified 08/10/24 09:38) Hives zolmitriptan (From Zomig) Allergy (Verified 08/10/24 09:38) ; verapamil Adverse Reaction (Verified 08/10/24 09:38) lightheaded dizzy Medications ???Medication ???Instructions ???Recorded ???Confirmed ???Type methylphenidate HCl 27 mg 27 mg PO DAILY ADD 10/01/18 History tablet,extended release 24 hr trazodone 100 mg tablet 100 mg PO QHS 10/01/18 08/10/24 Hi story erenumab-aooe 140 mg/mL 140 mg SQ QMONTH 12/05/19 08/10/24 History subcutaneous auto-injector ascorbate calcium (vitamin C) 500 500 mg PO DAILY 09/28/21 08/10/24 History mg tablet vitamin with calcium ea PO 09/28/21 08/10/24 History no.72-iron 27 mg-folic acid 1 mg tablet duloxetine 40 mg capsule,delayed 40 mg PO DAILY 10/06/21 08/10/24 H istory release magnesium oxide 500 mg capsule 1,000 mg PO DAILY 10/06/21 5 History vitamin B complex 1 tab PO DAILY 10/06/21 08/10/24 H istory rizatriptan 10 mg tablet 10 mg PO .COMPLEX PRN 01/27/2307/06 History Is last menstrual period known: No Post menopausal: Yes Patient : No Have you fallen in the past year?: No Nurse's Note: cough, ST, fever, congest x 1 week without resolve. [facility] Medical History (Updated 08/10/24 @ 09:47 by ILENE Jerez) Anxiety Acute sinusitis, unspecified Contact with or exposure to other viral diseases Hx of migraines Abdominal pain Splenomegaly Easy bruising Arthritis Surgical History History of hysterectomy History of umbilical hernia repair H/O section History of carpal tunnel repair Hx of tonsillectomy Social History household members: family Smoking Status: Never smoker alcohol intake: current alcohol intake frequency: holidays/special occasions only Alcohol type: wine substance use type: does not use caffeine: No what type of physical activity do you participate in: none seatbelt use: always do you feel safe at home: Yes HPI HPI Chief Complaint: cough, ST, fever, congest Details: YUMIKO SINGH, is a 58 F who presents to the office today for uri sx -sx started last Monday -sx last felt like the flu- fever, ST, congestion, body aches- last for about 3 days- felt getting better then cough started and last night fever. Cough is wet bringing up green phlegm. + congestion. Feels pressure around sinuses. Denies sob or resp distress -tried so far sudafed, cough meds, tylenol -no smoker no hx asthma or copd -recent tx with atbs for uti unsure of name ROS Const Constitutional: Positive for other (ROS negative x6 except what was placed in HPI) Exam Const General: cooperative, comfortable and no acute distress Orientation: alert, awake and oriented x3 HENMT Head: normal to inspection and normocephalic Ears: hearing grossly normal bilaterally, external ears normal and TM's normal bilaterally Nose: external nose normal and other (+ congestion and rhinorrhea- large amount) Face and sinus: normal facial exam, sinuses nontender and face symmetric Mouth: oral mucosae normal, lip normal, tongue normal, oropharynx normal and moist mucous membranes Throat: posterior oropharynx normal, tonsils normal, uvula midline and postnasal drainage (large amount) Neck Neck: normal visual inspection, full ROM and no lymphadenopathy Resp Effort Inspection: normal respiratory effort, able to speak in complete sentences and symmetric chest movement Auscultation: Bilateral: Clear to Auscultation, Left: Clear to Auscultation and Right: Clear to Auscultation Cardio Rate: regular rate Rhythm: regular rhythm Heart Sounds: S1 normal and S2 normal GI Auscultation: normal bowel sounds Palpation: soft Skin General: no rashes or lesions noted and turgor normal Neuro General: pa (more content not included)... Normal [facility] Urine Cultureon 07-31-2024 URC Mixed Gram Positive Organisms Prince Count 1000-10,000 MIXC Mixed contaminants. Submit a new specimen if indicated. Normal [facility] Comment on above: Performed By: #### M 100.2200 #### [facility] Laboratory [address] [place] [address] [place], [address] Urine cultureOrdered By: Dawson Cordova on 07-29-2024 Bacteria identified Cx Nom (U) Positive Abnormal [facility] Laboratory - Chemistry and C hemistry - challengeOrdered By: Adilson Cordova on 07-28-2024 Bilirubin Ql (U) Negative [facility] Glucose Ql (U) Negative [facility] Ketones Ql (U) Negative [facility] pH (U) 5.0 [pH] [facility] Specific gravity (U) [Rel density] 1.005 [facility] Urobilinogen (U) [Mass/Vol] Negative [facility] Laboratory - Hematology and Cell countsOrdered By: Adilson Cordova on 07-28-2024 Hemoglobin Ql (U) Moderate [facility] Laboratory - Specimen inform ationOrdered By: Adilson Cordova on 07-28-2024 Clarity (U) Cloudy [facility] Color (U) JHONY [facility] Laboratory - UrinalysisOrder ed By: Adilson Cordova on 07-28-2024 Nitrite Ql (U) Negative [facility] Protein Ql (U) Trace [facility] No Panel InformationOrdered By: Adilson Cordova on 07-28-2024 Urine Leukocytes Positive [facility] Urine Non-Hemolyzed Blood Non-Hemolyzed [facility] Urgent Care Visit Reporton 0 07-28-2024 Urgent Care Visit Report [facility] [address], [address] [place] [address] OFFICE VISIT Date of Service: 07/28/24 MR#: [id number] Acct: [id number] Name: YUMIKO SINGH Rep #: [id number] : 1965 Provider: ILENE fenton Age/Sex: 58/F Location: [facility] Status: Signed Intake Vital Signs 04/03/23 07:23 07/28/24 12:43 Height 5 ft 9 in 5 ft 9 in BP 116/68 Blood Pressure Location Lt brachial Position Sitting Respiration 12 Pulse 96 Pulse Source NIBP Temp 98.1 F Temp Source Oral Pulse Oximetry (%) 98 Oxygen Delivery Method room air Intake Visit Reasons: Urinary tract infection Chief Complaint: uti symptoms Allergies amoxicillin Allergy (Verified 04/15/24 07:14) Hives Sulfa (Sulfonamide Antibiotics) Allergy (Verified 04/15/24 07:14) Hives zolmitriptan (From Zomig) Allergy (Verified 04/15/24 07:14) ; verapamil Adverse Reaction (Verified 04/15/24 07:14) lightheaded dizzy Medications ???Medication ???Instructions ???Recorded ???Confirmed ???Type methylphenidate HCl 27 mg 27 mg PO DAILY ADD 10/01/18 History tablet,extended release 24 hr trazodone 100 mg tablet 100 mg PO QHS 10/01/18 07/28/24 Hi story erenumab-aooe 140 mg/mL 140 mg SQ QMONTH 12/05/19 07/28/24 History subcutaneous auto-injector ascorbate calcium (vitamin C) 500 500 mg PO DAILY 09/28/21 07/28/24 History mg tablet vitamin with calcium ea PO 09/28/21 07/28/24 History no.72-iron 27 mg-folic acid 1 mg tablet duloxetine 40 mg capsule,delayed 40 mg PO DAILY 10/06/21 07/28/24 H istory release magnesium oxide 500 mg capsule 1,000 mg PO DAILY 10/06/21 5 History vitamin B complex 1 tab PO DAILY 10/06/21 07/28/24 H istory rizatriptan 10 mg tablet 10 mg PO .COMPLEX PRN 01/27/23 History azithromycin 250 mg tablet 250 mg PO .COMPLEX #12 tabs 07/28/24 Rx benzonatate 200 mg capsule 200 mg PO TID PRN cough #20 caps 1 06/15/23 07/28/24 Rx nitrofurantoin 100 mg PO Q12H 7 days #14 caps 07/28/24 Rx monohydrate/macrocrystals 100 mg capsule (Macrobid) phenazopyridine 100 mg tablet 100 mg PO TID PRN pain #7 tabs 07/28/24 Rx (Pyridium) PFSH Medical History (Updated 07/28/24 @ 13:08 by Sheri Patino) Anxiety Acute sinusitis, unspecified Contact with or exposure to other viral diseases Hx of migraines Abdominal pain Splenomegaly Easy bruising Arthritis Surgical History History of hysterectomy History of umbilical hernia repair H/O section History of carpal tunnel repair Hx of tonsillectomy Social History household members: family Smoking Status: Never smoker alcohol intake: current alcohol intake frequency: holidays/special occasions only Alcohol type: wine substance use type: does not use caffeine: No what type of physical activity do you participate in: none seatbelt use: always do you feel safe at home: Yes HPI HPI Chief Complaint: uti symptoms Details: YUMIKO SINGH, is a 58 F who presents to the office today for uti symptoms x1 month, back pain. ROS Const Constitutional: No body ache, chills, fatigue, fever(s) (no fever greater than 99.9 F), malaise, night sweats or other (rigors) Resp Respiratory: No shortness of breath Cardio Cardiology: No chest pain at rest or chest pain with exertion Gastro GI: No abdominal pain Genitourinary-Female: Positive for burning urination and suprapubic fullness; No painful urination, urinary frequency, urinary urgency, blood in urine or side pain Endo Endocrine: No fatigue Exam Const General: cooperative, healthy appearing, comfortable and no acute distress Orientation: alert, awake and oriented x3 Chest Chest palpation inspection: normal inspection of the chest Resp Effort Inspection: normal respiratory effort Auscultation: Bilateral: Clear to Auscultation Cardio Rhythm: other (Normal) Heart Sounds: S1 normal, S2 normal and no murmurs GI Inspection: normal to inspection and non-distended Auscultation: normal bowel sounds Palpation: soft and nontender General: No CVA tenderness Skin General: no rashes or lesions noted Results POC Urinalysis Dip (Clinic) Office Urine Color JHONY Last Edit by Sheri Patino on 07/28/24 13:20 Office Urine Clarity Cloudy Last Edit by Sheri Patino on 07/28/24 13:20 Office Urine Glucose Negative Last Edit by Sheri Patino on 07/28/24 13:20 Office Urine Ketones Negative Last Edit by Sheri Patino on 07/28/24 13:20 Off Ur Spec Caroline 1.005 Last Edit by Sheri Patino on 07/28/24 13:20 Office Urine pH 5.0 Last Edit by Sheri Patino on 07/28/24 1 (more content not included)... Normal [facility] Urgent Care Visit Reporton 1 06-15-2023 Urgent Care Visit Report [facility] [address], [address] [place] [address] OFFICE VISIT Date of Service: 04/15/24 MR#: [id number] Acct: [id number] Name: YUMIKO SINGH Rep #: [id number] : 1965 Provider: SHAHRAM Escudero Age/Sex: 58/F Location: [facility] Status: Signed Intake Vital Signs 04/03/23 07:23 04/15/24 07:11 Height 5 ft 9 in BP 130/76 H Blood Pressure Location Lt brachial Position Sitting Respiration 16 Pulse 102 H Pulse Source NIBP Temp 98.2 F Temp Source Oral Pulse Oximetry (%) 94 Oxygen Delivery Method room air Intake Visit Reasons: COUGH/CONGESTION Chief Complaint: cough,congest, grn mucus, face pain [employer] Required: No Is patient in pain?: No Allergies amoxicillin Allergy (Verified 04/15/24 07:14) Hives Sulfa (Sulfonamide Antibiotics) Allergy (Verified 04/15/24 07:14) Hives zolmitriptan (From Zomig) Allergy (Verified 04/15/24 07:14) ; verapamil Adverse Reaction (Verified 04/15/24 07:14) lightheaded dizzy Medications ???Medication ???Instructions ???Recorded ???Confirmed ???Type methylphenidate HCl 27 mg 27 mg PO DAILY ADD 10/01/18 04/03/23 History tablet,extended release 24 hr trazodone 100 mg tablet 100 mg PO QHS 10/01/18 04/03/23 History erenumab-aooe 140 mg/mL 140 mg SQ QMONTH 12/05/19 04/03/23 History subcutaneous auto-injector ascorbate calcium (vitamin C) 500 500 mg PO DAILY 09/28/21 04/03/23 History mg tablet vitamin with calcium ea PO 09/28/21 04/03/23 History no.72-iron 27 mg-folic acid 1 mg tablet duloxetine 40 mg capsule,delayed 40 mg PO DAILY 10/06/21 04/03/23 History release magnesium oxide 500 mg capsule 1,000 mg PO DAILY 10/06/21 04/03/23 History vitamin B complex 1 tab PO DAILY 10/06/21 04/03/23 History rizatriptan 10 mg tablet 10 mg PO .COMPLEX PRN 01/27/23 04/03/23 History Is last menstrual period known: No Post menopausal: Yes Patient : No Have you fallen in the past year?: No Nurse's Note: cough,congest, grn mucus, face pain x 2 weeks. declines viral testing. [facility] Medical History (Updated 06/13/23 @ 13:34 by Glory Sabillon) Anxiety Acute sinusitis, unspecified Contact with or exposure to other viral diseases Hx of migraines Abdominal pain Splenomegaly Easy bruising Arthritis Surgical History History of hysterectomy History of umbilical hernia repair H/O section History of carpal tunnel repair Hx of tonsillectomy Social History household members: family Smoking Status: Never smoker alcohol intake: current alcohol intake frequency: holidays/special occasions only Alcohol type: wine substance use type: does not use caffeine: No what type of physical activity do you participate in: none seatbelt use: always do you feel safe at home: Yes HPI HPI Chief Complaint: cough,congest, grn mucus, face pain Details: YUMIKO SINGH, is a 58 F who presents to the office today [facility] for approximately 2-week history of progressively worsening forehead and facial pressure/congestion with purulent postnasal drip/cough. No complaints of fever, chills, myalgias, fatigue, runny nose, or nausea/vomiting/diarrhea. No complaints of chest pain/shortness of breath/dyspnea on exertion. Several close contacts with similar complaints. No other associated symptoms and no other alleviating/aggravating factors. ROS Const Constitutional: No other (as above) Exam Const General: cooperative, healthy appearing and no acute distress Nutritional Appearance: average body habitus Orientation: alert, awake and oriented x3 HENMT Head: normal to inspection Ears: hearing grossly normal bilaterally, external ears normal, TM's normal bilaterally and EAC's normal Nose: external nose normal, nares normal, septum normal and no nasal discharge Face and sinus: normal facial exam, sinuses nontender (Though bilateral maxillary fullness to palpation) and face symmetric Mouth: oral mucosae normal, lip normal, tongue normal and oropharynx normal Throat: posterior oropharynx normal, tonsils normal, uvula midline and postnasal drainage (Purulent) Eyes General: appearance normal, both eyes and all related structures Neck Neck: normal visual inspection, full ROM, no meningeal signs, supple and lymphadenopathy (Bilateral anterior cervical lymph node swelling/tender to palpation) Neck mass: No Thyroid: thyroid normal Chest Chest palpation inspection: normal inspection of the chest Resp Effort Inspection: normal respiratory effort and able to speak in complete sentences Auscultation: Bilateral: Clear to Auscultation Cardio Palpation: normal PMI Rate: tachycardi (more content not included)... Normal [facility] PROGESTERONE 4317on 01-26-20 24 PROGESTERONE <0.1 Normal . [facility] Comment on above: Order Comment: N Result Comment: Foll icular phase 0.1 - 0.9 Luteal phase 1.8 - 23.9 Ovulation phase 0.1 - 12.0 First trimester 11.0 - 44.3 Second trimester 25.4 - 83.3 Third trimester 58.7 - 214.0 Postmenopausal 0.0 - 0.1 Performed at: [address] [id number] Care Mgr: Dominick De La Rosa PhD, Phone: [phone] Performed By: #### L 801.2600, L3300.1750 ####[facility] [id number] [place], [place], [address] CBC W/Diff, Automatedon 01-10 Absolute Lymph 3.15 X10 3/uL Normal 0.83-4.51 [facility] Comment on above: Order Comment: Order Date: 01/23/24 Order Info: [id number] - CBCD Performed By: #### L 501.9985, L500.4050, L506.0400, L501.9520, L100.0100, L500.4100 #### [facility] Laboratory [address] [place], [address] Absolute Neut 5.8 X10 3/uL Normal 2.0-7.7 [facility] Comment on above: Order Comment: Order Date: 01/23/24 Order Info: [id number] - CBCD Performed By: #### L 501.9985, L500.4050, L506.0400, L501.9520, L100.0100, L500.4100 #### [facility] Laboratory [address] [place], [place], [address] (677) Basophils/100 WBC (Bld) 0.3 % Normal 0-1 [facility] Comment on above: Order Comment: Order Date: 01/23/24 Order Info: [id number]- - CBCD Performed By: #### L 501.9985, L500.4050, L506.0400, L501.9520, L100.0100, L500.4100 #### [facility] Laboratory [address] [place], [address] Eosinophils/100 WBC (Bld) 0.3 % Normal 0-5 [facility] Comment on above: Order Comment: Order Date: 01/23/24 Order Info: [id number]- - CBCD Performed By: #### L 501.9985, L500.4050, L506.0400, L501.9520, L100.0100, L500.4100 #### [facility] Laboratory [address] [place], [address] Erythrocyte distribution width (RBC) [Ratio] 14.3 % Normal 11.6-14.6 [facility] Comment on above: Order Comment: Order Date: 01/23/24 Order Info: [id number]- - CBCD Performed By: #### L 501.9985, L500.4050, L506.0400, L501.9520, L100.0100, L500.4100 #### [facility] Laboratory [address] [place], [address] Hematocrit (Bld) [Volume fraction] 40.1 % Normal 37-47 [facility] Comment on above: Order Comment: Order Date: 01/23/24 Order Info: [id number]- - CBCD Performed By: #### L 501.9985, L500.4050, L506.0400, L501.9520, L100.0100, L500.4100 #### [facility] Laboratory [address] [place], [address] Hemoglobin (Bld) [Mass/Vol] 13.0 g/dL Normal 12.0-15.0 [facility] Comment on above: Order Comment: Order Date: 01/23/24 Order Info: [id number] - CBCD Performed By: #### L 501.9985, L500.4050, L506.0400, L501.9520, L100.0100, L500.4100 #### [facility] Laboratory [address] [place], [address] IG% 0.200 Normal 0.0-0.9 [facility] Comment on above: Order Comment: Order Date: 01/23/24 Order Info: [id number] - CBCD Result Comment: IG% - Immature Granulocytes (promyelocytes, myelocytes and metamyelocytes) > 1% indicates that a LEFT SHIFT is Present. Performed By: #### L 501.9985, L500.4050, L506.0400, L501.9520, L100.0100, L500.4100 #### [facility] Laboratory [address] [place], [address] Lymphocytes/100 WBC (Bld) 31.7 % Normal 19-41 [facility] Comment on above: Order Comment: Order Date: 01/23/24 Order Info: [id number]- - CBCD Performed By: #### L 501.9985, L500.4050, L506.0400, L501.9520, L100.0100, L500.4100 #### [facility] Laboratory [address] [place], [address] MCH (RBC) [Entitic mass] 32.2 pg High 27.0-32.0 [facility] Comment on above: Order Comment: Order Date: 01/23/24 Order Info: [id number]- - CBCD Performed By: #### L 501.9985, L500.4050, L506.0400, L501.9520, L100.0100, L500.4100 #### [facility] Laboratory [address] [place], [address] MCHC (RBC) [Mass/Vol] 32.4 g/dL Normal 32-36 [facility] Comment on above: Order Comment: Order Date: 01/23/24 Order Info: [id number] - CBCD Performed By: #### L 501.9985, L500.4050, L506.0400, L501.9520, L100.0100, L500.4100 #### [facility] Laboratory [address] [place], [address] MCV (RBC) [Entitic vol] 99.3 fL High 81-99 [facility] Comment on above: Order Comment: Order Date: 01/23/24 Order Info: [id number]- - CBCD Performed By: #### L 501.9985, L500.4050, L506.0400, L501.9520, L100.0100, L500.4100 #### [facility] Laboratory [address] [place], [address] Monocytes/100 WBC (Bld) 9.5 % Normal 0-10 [facility] Comment on above: Order Comment: Order Date: 01/23/24 Order Info: [id number]- - CBCD Performed By: #### L 501.9985, L500.4050, L506.0400, L501.9520, L100.0100, L500.4100 #### [facility] Laboratory [address] [place], [address] Neutrophils/100 WBC (Bld) 58.0 % Normal 47-70 [facility] Comment on above: Order Comment: Order Date: 01/23/24 Order Info: [id number] - CBCD Performed By: #### L 501.9985, L500.4050, L506.0400, L501.9520, L100.0100, L500.4100 #### [facility] Laboratory [address] [place], [address] Nucleated RBC (Bld) [#/Vol] 0 10*3/uL Normal 0-5 [facility] Comment on above: Order Comment: Order Date: 01/23/24 Order Info: [id number] - CBCD Performed By: #### L 501.9985, L500.4050, L506.0400, L501.9520, L100.0100, L500.4100 #### [facility] Laboratory [address] [place], [address] Platelet mean volume (Bld) [Entitic vol] 9.1 fL Normal 6.2-12.0 [facility] Comment on above: Order Comment: Order Date: 01/23/24 Order Info: [id number] - CBCD Performed By: #### L 501.9985, L500.4050, L506.0400, L501.9520, L100.0100, L500.4100 #### [facility] Laboratory [address] [place], [address] Platelets (Bld) [#/Vol] 343 10*3/uL Normal 150-450 [facility] Comment on above: Order Comment: Order Date: 01/23/24 Order Info: [id number] - CBCD Performed By: #### L 501.9985, L500.4050, L506.0400, L501.9520, L100.0100, L500.4100 #### [facility] Laboratory [address] [place], [address] RBC (Bld) [#/Vol] 4.04 10*6/uL Low 4.2-5.4 [facility] Comment on above: Order Comment: Order Date: 01/23/24 Order Info: [id number] - CBCD Performed By: #### L 501.9985, L500.4050, L506.0400, L501.9520, L100.0100, L500.4100 #### [facility] Laboratory [address] [place], [address] RDW SD 51.9 fl High 35.1-43.9 [facility] Comment on above: Order Comment: Order Date: 01/23/24 Order Info: [id number] - CBCD Performed By: #### L 501.9985, L500.4050, L506.0400, L501.9520, L100.0100, L500.4100 #### [facility] Laboratory [address] [place], [address] WBC (Bld) [#/Vol] 9.9 10*3/uL Normal 4.4-11.0 [facility] Comment on above: Order Comment: Order Date: 01/23/24 Order Info: [id number]- - CBCD Performed By: #### L 501.9985, L500.4050, L506.0400, L501.9520, L100.0100, L500.4100 #### [facility] Laboratory [address] [place], [place], [id number] Comprehensive Metabolic Prof ilon 01-25-2024 Albumin [Mass/Vol] 3.6 g/dL Normal 3.2-5.0 [facility] Comment on above: Order Comment: Order Date: 01/23/24 Order Info: [id number] - CMP Order Info: [id number] - LIPID Order Info: [id number] - TSH Order Info: [id number] - T4F N Performed By: #### L 501.9985, L500.4050, L506.0400, L501.9520, L100.0100, L500.4100 #### [facility] Laboratory [address] [place], [address] Albumin/Globulin [Mass ratio] 1.0 {ratio} Normal 0.9-2.4 [facility] Comment on above: Order Comment: Order Date: 01/23/24 Order Info: [id number] - CMP Order Info: [id number] - LIPID Order Info: [id number] - TSH Order Info: [id number] - T4F N Performed By: #### L 501.9985, L500.4050, L506.0400, L501.9520, L100.0100, L500.4100 #### [facility] Laboratory [address] [place], [address] ALK P 62 U/L Normal 45-117 [facility] Comment on above: Order Comment: Order Date: 01/23/24 Order Info: [id number] - CMP Order Info: [id number] - LIPID Order Info: [id number] - TSH Order Info: [id number] - T4F N Performed By: #### L 501.9985, L500.4050, L506.0400, L501.9520, L100.0100, L500.4100 #### [facility] Laboratory [address] [place], [address] ALT [Catalytic activity/Vol] 30 U/L Normal 13-56 [facility] Comment on above: Order Comment: Order Date: 01/23/24 Order Info: [id number] - CMP Order Info: [id number] - LIPID Order Info: [id number] - TSH Order Info: [id number] - T4F N Performed By: #### L 501.9985, L500.4050, L506.0400, L501.9520, L100.0100, L500.4100 #### [facility] Laboratory [address] [place], [address] AST [Catalytic activity/Vol] 15 U/L Normal 15-37 [facility] Comment on above: Order Comment: Order Date: 01/23/24 Order Info: [id number]- - CMP Order Info: [id number] - LIPID Order Info: [id number] - TSH Order Info: [id number] - T4F N Performed By: #### L 501.9985, L500.4050, L506.0400, L501.9520, L100.0100, L500.4100 #### [facility] Laboratory [address] [place], [address] Bilirubin [Mass/Vol] 0.80 mg/dL Normal 0.20-1.00 [facility] Comment on above: Order Comment: Order Date: 01/23/24 Order Info: [id number] - CMP Order Info: [id number] - LIPID Order Info: [id number] - TSH Order Info: [id number] - T4F N Result Comment: For patients on eltrombopag therapy, use of Dimension [place] TBIL is not recommended. Performed By: #### L 501.9985, L500.4050, L506.0400, L501.9520, L100.0100, L500.4100 #### [facility] Laboratory [address] [place], [address] BUN/CRE 28.9 RATIO High 10-20 [facility] [facility] Comment on above: Order Comment: Order Date: 01/23/24 Order Info: [id number] - CMP Order Info: [id number] - LIPID Order Info: 3 - TSH Order Info: 3023-7 - T4F N Performed By: #### L 501.9985, L500.4050, L506.0400, L501.9520, L100.0100, L500.4100 #### [facility] Laboratory [address] [place], [address] CA,Total 9.0 mg/dL Normal 8.5-10.1 [facility] Comment on above: Order Comment: Order Date: 01/23/24 Order Info: 785- - CMP Order Info: [id number] - LIPID Order Info: 3 - TSH Order Info: 3024-7 - T4F N Performed By: #### L 501.9985, L500.4050, L506.0400, L501.9520, L100.0100, L500.4100 #### [facility] Laboratory [address] [place], [address] Chloride [Moles/Vol] 109 mmol/L High 98-107 [facility] Comment on above: Order Comment: Order Date: 01/23/24 Order Info: 86-1 - CMP Order Info: [id number] - LIPID Order Info: 63 - TSH Order Info: 3024-7 - T4F N Performed By: #### L 501.9985, L500.4050, L506.0400, L501.9520, L100.0100, L500.4100 #### [facility] Laboratory [address] [place], [address] CO2 [Moles/Vol] 26.0 mmol/L Normal 21.0-32.0 [facility] Comment on above: Order Comment: Order Date: 01/23/24 Order Info: 86-1 - CMP Order Info: [id number] - LIPID Order Info: 3 - TSH Order Info: 7 - T4F N Performed By: #### L 501.9985, L500.4050, L506.0400, L501.9520, L100.0100, L500.4100 #### [facility] Laboratory [address] [place], [address] Creatinine [Mass/Vol] 0.90 mg/dL Normal 0.55-1.02 [facility] Comment on above: Order Comment: Order Date: 01/23/24 Order Info: [id number] - CMP Order Info: - LIPID Order Info: [id number] - TSH Order Info: 7 - T4F N Result Comment: The validity of the calculated GFR GFRAA in patients over 70 years has not been determined. Clinical correlation is essential. Performed By: #### L 501.9985, L500.4050, L506.0400, L501.9520, L100.0100, L500.4100 #### [facility] Laboratory [address] [place], [address] EST GFR - AA 83 mL/min Normal >60 [facility] Comment on above: Order Comment: Order Date: 01/23/24 Order Info: 785-1 - CMP Order Info: [id number] - LIPID Order Info: [id number] - TSH Order Info: 3024-7 - T4F N Result Comment: Afri can Colombian GFR Calc Performed By: #### L 501.9985, L500.4050, L506.0400, L501.9520, L100.0100, L500.4100 #### [facility] Laboratory [address] [place], [place], [address] GAP 7 Normal 5-15 [facility] Comment on above: Order Comment: Order Date: 01/23/24 Order Info: [id number] - CMP Order Info: - LIPID Order Info: [id number] - TSH Order Info: 3023-12 - T4F N Performed By: #### L 501.9985, L500.4050, L506.0400, L501.9520, L100.0100, L500.4100 #### [facility] Laboratory [address] [place], [place], [id number] GFR/1.73 sq M.predicted among non-blacks MDRD (S/P/Bld) [Vol rate/Area] 68 mL/min/{1.73_m2} Normal >60 [facility] Comment on above: Order Comment: Order Date: 01/23/24 Order Info: [id number] - CMP Order Info: - LIPID Order Info: [id number] - TSH Order Info: 3023-12 - T4F N Result Comment: Non- GFR Calc Performed By: #### L 501.9985, L500.4050, L506.0400, L501.9520, L100.0100, L500.4100 #### [facility] Laboratory [address] [place], [place], [id number] [phone] Globulin (S) [Mass/Vol] 3.6 g/dL Normal 2.2-4.2 [facility] Comment on above: Order Comment: Order Date: 01/23/24 Order Info: [id number] - CMP Order Info: - LIPID Order Info: [id number] - TSH Order Info: 3023-12 - T4F N Performed By: #### L 501.9985, L500.4050, L506.0400, L501.9520, L100.0100, L500.4100 #### [facility] Laboratory [address] [place], [address] Glucose [Mass/Vol] 93 mg/dL Normal 74-106 [facility] Comment on above: Order Comment: Order Date: 01/23/24 Order Info: 0786-1 - CMP Order Info: [id number] - LIPID Order Info: [id number] - TSH Order Info: 3024-7 - T4F N Performed By: #### L 501.9985, L500.4050, L506.0400, L501.9520, L100.0100, L500.4100 #### [facility] Laboratory [address] [place], [address] Potassium [Moles/Vol] 3.6 mmol/L Normal 3.5-5.1 [facility] Comment on above: Order Comment: Order Date: 01/23/24 Order Info: 785-1 - CMP Order Info: [id number] - LIPID Order Info: [id number] - TSH Order Info: 3024-7 - T4F N Performed By: #### L 501.9985, L500.4050, L506.0400, L501.9520, L100.0100, L500.4100 #### [facility] Laboratory [address] [place], [address] Sodium [Moles/Vol] 142 mmol/L Normal 136-145 [facility] Comment on above: Order Comment: Order Date: 01/23/24 Order Info: 0786-1 - CMP Order Info: [id number] - LIPID Order Info: [id number] - TSH Order Info: 3024-7 - T4F N Performed By: #### L 501.9985, L500.4050, L506.0400, L501.9520, L100.0100, L500.4100 #### [facility] Laboratory [address] [place], [address] T PROT 7.2 g/dL Normal 6.4-8.2 [facility] Comment on above: Order Comment: Order Date: 01/23/24 Order Info: 0786-1 - CMP Order Info: [id number] - LIPID Order Info: [id number] - TSH Order Info: 3023-7 - T4F N Performed By: #### L 501.9985, L500.4050, L506.0400, L501.9520, L100.0100, L500.4100 #### [facility] Laboratory [address] [place], [address] Urea nitrogen [Mass/Vol] 26 mg/dL High 7-18 [facility] Comment on above: Order Comment: Order Date: 01/23/24 Order Info: 0786 - CMP Order Info: - LIPID Order Info: [id number] - TSH Order Info: 7 - T4F N Performed By: #### L 501.9985, L500.4050, L506.0400, L501.9520, L100.0100, L500.4100 #### [facility] Laboratory [address] [place], [place], [id number] Estradiolon 01-25-2024 ESTRADIOL < 11.0 Normal [facility] Comment on above: Order Comment: Order Date: 01/23/24Order Info: [id number]- - CMPOrder Info: [id number] - LIPIDOrder Info: 3 - TSHOrder Info: [id number] - T4FN Result Comment: NORM AL REFERENCE RANGES FEMALE FOLLICULAR 21.4 - 164.8 pg/mL MID-CYCLE PEAK 49.9 - 367.2 pg/mL LUTEAL 40.2 - 259.0 pg/mL POST-MENOPAUSAL ON MHT <11.0 - 462.1 pg/mL NOT ON MHT <11.0 - 58.3 pg/mL MALE <11.0 - 52.5 pg/mL NOTE: [facility] HAS CONFIRMED THE DRUG FULVETRANT (FASLODEX) MAY CAUSE FALSELY ELEVATED ESTRADIOL RESULTS WHEN USING THIS TEST METHOD. IF PATIENT IS TAKING FULVESTRANT AN ALTERNATIVE METHOD SHOULD BE USED TO DETERMINE ESTRADIOL CONCENTRATION. Performed By: #### L 801.2600, L3300.1750 ####[facility] [id number] [place], [place], [address] Hemoglobin A1con 01-25-2024 HbA1c (Bld) [Mass fraction] 5.2 % Normal 3.8-5.6 [facility] Comment on above: Order Comment: Order Date: 01/23/24Order Info: [id number] - A1C Result Comment: Norm al < 5.7 % Prediabetic 5.7 - 6.4 % Diabetic >or= 6.5 % Please note range changes. Performed By: #### L 501.9985, L500.4050, L506.0400, L501.9520, L100.0100, L500.4100 ####[facility] [id number] [place], [place], [id number] Lipid Profileon 01-25-2024 Cholesterol [Mass/Vol] 194 mg/dL Normal 200 [facility] Comment on above: Order Comment: Order Date: 01/23/24 Order Info: [id number] - CMP Order Info: [id number] - LIPID Order Info: [id number] - TSH Order Info: 3024-7 - T4F N Result Comment: <200 mg/dL Desirable 200-240 mg/dL Borderline >240 mg/dL High Risk Performed By: #### L 501.9985, L500.4050, L506.0400, L501.9520, L100.0100, L500.4100 #### [facility] Laboratory [address] [place], [place], [address] Cholesterol in HDL [Mass/Vol] 54 mg/dL Normal [facility] Comment on above: Order Comment: Order Date: 01/23/24 Order Info: [id number] - CMP Order Info: [id number] - LIPID Order Info: [id number] - TSH Order Info: 3024-7 - T4F N Result Comment: The drugs N-Acetylcysteine and Metamizole may falsely depress this assay. Reference Range HDL <40 mg/dL Low HDL Cholesterol HDL >or= 60 mg/dL High HDL Cholesterol Performed By: #### L 501.9985, L500.4050, L506.0400, L501.9520, L100.0100, L500.4100 #### [facility] Laboratory [address] [place], [address] Cholesterol in LDL [Mass/Vol] 119 mg/dL Normal 0-130 [facility] Comment on above: Order Comment: Order Date: 01/23/24 Order Info: 0786-1 - CMP Order Info: [id number] - LIPID Order Info: [id number] - TSH Order Info: 3023-7 - T4F N Performed By: #### L 501.9985, L500.4050, L506.0400, L501.9520, L100.0100, L500.4100 #### [facility] Laboratory [address] [place], [address] Cholesterol in VLDL [Mass/Vol] 21 mg/dL Normal 5-40 [facility] Comment on above: Order Comment: Order Date: 01/23/24 Order Info: [id number] - CMP Order Info: - LIPID Order Info: 3 - TSH Order Info: 7 - T4F N Performed By: #### L 501.9985, L500.4050, L506.0400, L501.9520, L100.0100, L500.4100 #### [facility] Laboratory [address] [place], [address] Triglyceride [Mass/Vol] 103 mg/dL Normal [facility] Comment on above: Order Comment: Order Date: 01/23/24 Order Info: 07 - CMP Order Info: [id number] - LIPID Order Info: [id number] - TSH Order Info: 302-7 - T4F N Result Comment: The drugs N-Acetylcysteine and Metamizole may falsely depress this assay. Serum Triglycerides Reference Interval Normal <150 mg/dL Borderline high 150 - 199 mg/dL High 200 - 499 mg/dL Very High > or = 500 mg/dL Performed By: #### L 501.9985, L500.4050, L506.0400, L501.9520, L100.0100, L500.4100 #### [facility] Laboratory [address] [place], [address] T4 Free Directon 01-25-2024 T4 FREE DIRECT 0.80 ng/dL Normal 0.76-1.46 [facility] Comment on above: Order Comment: Order Date: 01/23/24Order Info: [id number] - CMPOrder Info: [id number] - LIPIDOrder Info: [id number] - TSHOrder Info: 3024-7 - T4FN Performed By: #### L 501.9985, L500.4050, L506.0400, L501.9520, L100.0100, L500.4100 ####[facility] [id number] [place], [address] Thyroid Stim Hormone (TSH)on 01-25-2024 TSH 1.560 uIU/mL Normal 0.358-3.74 0 [facility] Comment on above: Order Comment: Order Date: 01/23/24 Order Info: [id number] - CMP Order Info: [id number] - LIPID Order Info: [id number] - TSH Order Info: 3024-7 - T4F N Performed By: #### L 501.9985, L500.4050, L506.0400, L501.9520, L100.0100, L500.4100 #### [facility] Laboratory [address] [place], [address] L/S Spine Min 4 Viewson 11-10 L/S Spine Min 4 Views [facility] Services [address] [place] [address] L/S Spine Min 4 Views MR#: [id number] Acct: [id number] Name: YUMIKO SINGH Rep #: [id number] : 1965 F 58 From: Ba Hernandez MD PCP: Dr. Denise Cheng MD Status: REG CLI Study: L/S Spine Min 4 Views Date of Exam: 11/29/23 Exam# [id number] Ordering Dr: Wagner Whitten DPM [id number] STUDY: X-RAY - LUMBAR SPINE REASON FOR EXAM: Female, 58 years old. Idiopathic neuropathy. TECHNIQUE: 5 view(s) of the lumbar spine were obtained. COMPARISON: None FINDINGS: Osteopenia. Slight reversal of the normal lordosis. Minimal rotatory levoscoliosis. Normal vertebral alignment. Diffuse mild lower thoracic and lumbosacral facet sclerosis. Mild loss of height of the L2 vertebral body. Minimal intervertebral disc space narrowing diffusely without significant osteophyte formation. Metallic artifact projected over the right ilium. RAD/L/S Spine Min 4 Views IMPRESSION: Osteopenia with mild loss of height of the L2 vertebral body and mild lower thoracic and lumbosacral spondylosis. Electronically Signed: Ba Hernandez MD at 14:47 EDT Reading Location ID and State: [address] [place] [address] , Service support , CC: FREEMAN Whitten; Dr. Denise Cheng MD [employer] Worker: Signed Normal [facility] Basophil percentageOrdered B y: Ciera Granados on 06-09-2023 Bilirubin [Mass/Vol] 0.80 mg/dL 0.20-1.00 [facility] Comment on above: For patients on eltr ombopag therapy, use of Dimension [place] TBIL is not recommended. Chloride [Moles/Vol] 107 mmol/L 98-107 [facility] Cholesterol [Mass/Vol] 185 mg/dL <200 [facility] Comment on above: <200 mg/dL Desirable 200-240 mg/dL Borderline >240 mg/dL High Risk Glucose [Mass/Vol] 108 mg/dL 74-106 [facility] Comment on above: Fasting Glucose resu lt from 100 to 125 mg/dL suggests IMPAIRED HOMEOSTASIS per A.D.A. criteria. Potassium [Moles/Vol] 4.1 mmol/L 3.5-5.1 [facility] Protein [Mass/Vol] 7.1 g/dL 6.4-8.2 [facility] Sodium [Moles/Vol] 141 mmol/L 136-145 [facility] Triglyceride [Mass/Vol] 441 mg/dL <199 [facility] Comment on above: The drugs N-Acetylcy steine and Metamizole may falsely depress this assay. TRIGLYCERIDE IS GREATER THAN 400 mg/dL. LDL RESULT IS INVALID AND WILL NOT BE REPORTED.Serum Triglycerides Reference Interval Normal <150 mg/dL Borderline high 150 - 199 mg/dL High 200 - 499 mg/dL Very High > or = 500 mg/dL Laboratory - Chemistry and C hemistry - challengeOrdered By: Ciera Granados on 06-09-2023 ALP [Catalytic activity/Vol] 70 U/L 45-117 [facility] ALT [Catalytic activity/Vol] 44 U/L 13-56 [facility] CO2 [Moles/Vol] 28.0 mmol/L 21.0-32.0 [facility] Globulin (S) [Mass/Vol] 3.3 g/dL 2.2-4.2 [facility] Urea nitrogen/Creatinine [Mass ratio] 27.5 mg/mg 10-20 [facility] No Panel InformationOrdered By: Ciera Granados on 06-09-2023 Estimated GFR (MDRD) Amer 100 mL/min >60 [facility] Comment on above: GFR Calc Estimated GFR (MDRD) Non-Af Amer 83 mL/min >60 [facility] Comment on above: Non- GFR Calc Vitamin D 25-Hydroxy 34.9 ng/mL [facility] Comment on above: Vitamin D 25(OH) Sta tus Range Deficiency <20 ng/mL (50nmol/L) Insufficiency 20 - 30 ng/mL (50 - 75 nmol/L) Sufficiency 30 - 100 ng/mL (75 - 250 nmol/L) Toxicity >100 ng/mL (>250 nmol/L) Serum or plasma albumin hannah urement (mass/volume)Ordered By: Ciera Granados on 06-09-2023 Albumin [Mass/Vol] 3.8 g/dL 3.2-5.0 [facility] Serum or plasma albumin/glob ulin mass ratioOrdered By: Ciera Granados on 06-09-2023 Albumin/Globulin [Mass ratio] 1.2 {ratio} 0.9-2.4 [facility] Serum or plasma calcium hannah urement (mass/volume)Ordered By: Ciera Granados on 06-09-2023 Calcium [Mass/Vol] 8.7 mg/dL 8.5-10.1 [facility] Serum or plasma cholesterol in HDL measurement (mass/volume)Ordered By: Ciera [facility] on 06-09-2023 Cholesterol in HDL [Mass/Vol] 29 mg/dL >40 [facility] Comment on above: The drugs N-Acetylcy steine and Metamizole may falsely depress this assay. Reference Range HDL <40 mg/dL Low HDL Cholesterol HDL >or= 60 mg/dL High HDL Cholesterol Serum or plasma cholesterol in VLDL measurement (mass/volume)Ordered By: Ciera Granados on 06-09-2023 Cholesterol in VLDL [Mass/Vol] [facility] Comment on above: Test not performed Serum or plasma creatinine m easurement (mass/volume)Ordered By: Ciera Granados on 06-09-2023 Creatinine [Mass/Vol] 0.76 mg/dL 0.55-1.02 [facility] Comment on above: The validity of the calculated GFR & GFRAA in patients over 70 years has not been determined. Clinical correlation is essential. Serum or plasma low density lipoprotein (LDL) cholesterol measurement (mass/volume)Ordered By: Ciera Granados on 06-09-2023 Cholesterol in LDL [Mass/Vol] [facility] Comment on above: Test not performed Serum or plasma urea nitroge n measurement (mass/volume)Ordered By: Ciera Granados on 06-09-2023 Urea nitrogen [Mass/Vol] 21 mg/dL 7-18 [facility] Thin prep Papanicolaou smear with manual screeningOrdered By: Ciera Granados on 06-09-2023 Thin prep Papanicolaou smear with manual screening 35 U/L 15 [facility] Thin prep Papanicolaou smear with manual screening 6 5-15 [facility] Whole blood hemoglobin A1c/t otal hemoglobin ratio (mass fraction)Ordered By: Ciera Granados on 06-09-2023 HbA1c (Bld) [Mass fraction] 5.1 % 3.8-5.6 [facility] Comment on above: Normal < 5.7 % Predi abetic 5.7 - 6.4 % Diabetic >or= 6.5 % Please note range changes. No Panel Informationon 04-03 POC SARS CoV-2 Antigen Negative [facility] CNOVon 02-01-2023 CNOV Office Visit (PODIWS ) -- YUMIKO SINGH ([id number]) 1965 F Date Time Provider Department 02/01/23 2:15 PM JARED BERNARD PODIWS During your visit today, we recorded the following information about you: Sherlyn Garcia RN 02/01/2023 11:01 PM Signed AMB ROOMING INTAKE FLOWSHEET DATA Risk Screening [...] her toes. XR completed today to review. Jared Bernard 02/01/2023 11:01 PM Signed Initial Podiatric Office Visit: Chief Complaint: This [...] INCARCERATED 1974 TONSILLECTOMY AND ADENOIDECTOMY AGE 12/> 1979 FAMILY HISTORY Problem Relation Age of Onset [...] and shortness of breath CARDIOVASCULAR: Negative for c (more content not included)... Normal [facility] XR FOOT 3V AP/LAT/OBL BILon 02-01-2023 XR FOOT 3V AP/LAT/OBL TRAM * * *Final Report* * * DATE OF EXAM: Feb 01 2023 1:48PM WRX [id number] - XR FOOT 3V AP/LAT/OBL TRAM / PROCEDURE REASON: Plantar fascial fibromatosis * * * * Physician Interpretation * * * * PROCEDURE: Bilateral feet INDICATION: Plantar fascial fibromatosis .pain for a few months plantar side forefoot distal MT's no inj TECHNIQUE: XR FOOT 3V AP/LAT/OBL TRAM COMPARISON: None FINDINGS: Small to moderate sized bilateral plantar calcaneal spurs. No fracture or dislocation. No erosion or focal soft tissue swelling. IMPRESSION: Bilateral plantar calcaneal spurs [employer] Worker: ANGELA Transcribe Date/Time: Feb 04 2023 6:38P Dictated by : HECTOR DOMÍNGUEZ MD This examination was interpreted and the report reviewed and electronically signed by: HECTOR DOMÍNGUEZ MD on Feb 04 2023 6:39PM EST [id number] Normal [facility] XR FOOT GENERAL 3V AP/LAT/OB L BILATERALon 02-01-2023 [facility] Absolute lymphocyte countOrd ered By: Cecilio Lopez on 01-12-2023 Lymphocytes Auto (Unsp spec) [#/Vol] 2.95 10*3/uL 0.83-4.51 [facility] Basophil percentageOrdered B y: Cecilio Lopez on 01-12-2023 Basophils/100 WBC (Bld) 1.0 % 0-1 [facility] Bilirubin [Mass/Vol] 1.10 mg/dL 0.20-1.00 [facility] Comment on above: For patients on eltr ombopag therapy, use of Dimension [place] TBIL is not recommended. Chloride [Moles/Vol] 106 mmol/L 98-107 [facility] Eosinophils/100 WBC (Bld) 3.6 % 0-5 [facility] Glucose [Mass/Vol] 103 mg/dL 74-106 [facility] Comment on above: Fasting Glucose resu lt from 100 to 125 mg/dL suggests IMPAIRED HOMEOSTASIS per A.D.A. criteria. LDH [Catalytic activity/Vol] 165 U/L 84-246 [facility] Neutrophils (Bld) [#/Vol] 3.3 10*3/uL 2.0-7.7 [facility] Neutrophils/100 WBC (Bld) 45.2 % 47-70 [facility] Potassium [Moles/Vol] 3.7 mmol/L 3.5-5.1 [facility] Protein [Mass/Vol] 7.2 g/dL 6.4-8.2 [facility] Sodium [Moles/Vol] 142 mmol/L 136-145 [facility] WBC (Bld) [#/Vol] 7.2 10*3/uL 4.4-11.0 [facility] Blood erythrocytes count (nu mber/volume)Ordered By: Cecilio Lopez on 01-12-2023 RBC (Bld) [#/Vol] 4.13 10*6/uL 4.2-5.4 [facility] Blood hemoglobin measurement (mass/volume)Ordered By: Cecilio Lopez on 01-12-2023 Hemoglobin (Bld) [Mass/Vol] 13.7 g/dL 12.0-15.0 [facility] Blood lymphocytes/100 leukoc ytesOrdered By: Cecilio Lopez on 01-12-2023 Lymphocytes/100 WBC (Bld) 40.8 % 19-41 [facility] Blood monocytes/100 leukocyt esOrdered By: Cecilio Lopez on 01-12-2023 Monocytes/100 WBC (Bld) 9.3 % 0-10 [facility] Blood platelet mean volumeOr dered By: Cecilio Lopez on 01-12-2023 Platelet mean volume (Bld) [Entitic vol] 8.9 fL 6.2-12.0 [facility] Determination of erythrocyte mean corpuscular volume (MCV)Ordered By: Cecilio Lopez on 01-12-2023 MCV (RBC) [Entitic vol] 96.9 fL 81-99 [facility] Hematocrit Auto (Bld) [Volum e fraction]Ordered By: [facility] on 01-12-2023 Hematocrit (Bld) [Volume fraction] 40.0 % 37-47 [facility] Laboratory - Chemistry and C hemistry - challengeOrdered By: [facility] Lopez on 01-12-2023 ALP [Catalytic activity/Vol] 67 U/L 45-117 [facility] ALT [Catalytic activity/Vol] 42 U/L 13-56 [facility] CO2 [Moles/Vol] 29.0 mmol/L 21.0-32.0 [facility] Globulin (S) [Mass/Vol] 3.4 g/dL 2.2-4.2 [facility] Urea nitrogen/Creatinine [Mass ratio] 15.9 mg/mg 10-20 [facility] Laboratory - Hematology and Cell countsOrdered By: Cecilio Lopez on 01-12-2023 Erythrocyte distribution width (RBC) [Entitic vol] 49.1 fL 35.1-43.9 [facility] Erythrocyte distribution width (RBC) [Ratio] 13.7 % 11.6-14.6 [facility] Immature granulocytes/100 WBC (Bld) 0.100 % 0.0-0.9 [facility] Comment on above: IG% - Immature Granu locytes (promyelocytes, myelocytes and metamyelocytes) > 1% indicates that a LEFT SHIFT is Present. MCH (RBC) [Entitic mass] 33.2 pg 27.0-32.0 [facility] Nucleated RBC/100 WBC (Bld) [Ratio] 0 % 0-5 [facility] MCHC Auto (RBC) [Mass/Vol]Or dered By: Cecilio Lopez on 01-12-2023 MCHC (RBC) [Mass/Vol] 34.3 g/dL 32-36 [facility] No Panel InformationOrdered By: Cecilio Lopez on 01-12-2023 Estimated GFR (MDRD) Amer 85 mL/min >60 [facility] Comment on above: GFR Calc Estimated GFR (MDRD) Non-Af Amer 70 mL/min >60 [facility] Comment on above: Non- GFR Calc Platelets bldOrdered By: Damion Lopez on 01-12-2023 Platelets (Bld) [#/Vol] 296 10*3/uL 150-450 [facility] Serum or plasma albumin hannah urement (mass/volume)Ordered By: Cecilio Lopez on 01-12-2023 Albumin [Mass/Vol] 3.8 g/dL 3.2-5.0 [facility] Serum or plasma albumin/glob ulin mass ratioOrdered By: Cecilio Lopez on 01-12-2023 Albumin/Globulin [Mass ratio] 1.1 {ratio} 0.9-2.4 [facility] Serum or plasma calcium hannah urement (mass/volume)Ordered By: Cecilio Lopez on 01-12-2023 Calcium [Mass/Vol] 9.3 mg/dL 8.5-10.1 [facility] Serum or plasma creatinine m easurement (mass/volume)Ordered By: Cecilio Lopez on 01-12-2023 Creatinine [Mass/Vol] 0.88 mg/dL 0.55-1.02 [facility] [facility] Comment on above: The validity of the calculated GFR & GFRAA in patients over 70 years has not been determined. Clinical correlation is essential. Serum or plasma urea nitroge n measurement (mass/volume)Ordered By: Cecilio Lopez on 01-12-2023 Urea nitrogen [Mass/Vol] 14 mg/dL 7-18 [facility] Thin prep Papanicolaou smear with manual screeningOrdered By: Cecilio Lopez on 01-12-2023 Thin prep Papanicolaou smear with manual screening 27 U/L 15-37 [facility] Thin prep Papanicolaou smear with manual screening 7 5-15 [facility] Absolute lymphocyte countOrd ered By: Dr. Cheng on 11-09-2022 Lymphocytes Auto (Unsp spec) [#/Vol] 2.89 10*3/uL 0.83-4.51 [facility] Basophil percentageOrdered B y: Dr. Cheng on 11-09-2022 Basophils/100 WBC (Bld) 0.9 % 0-1 [facility] Bilirubin [Mass/Vol] 0.70 mg/dL 0.20-1.00 [facility] Comment on above: For patients on eltr ombopag therapy, use of Dimension [place] TBIL is not recommended. Chloride [Moles/Vol] 107 mmol/L 98-107 [facility] Eosinophils/100 WBC (Bld) 2.8 % 0-5 [facility] Glucose [Mass/Vol] 109 mg/dL 74-106 [facility] Comment on above: Fasting Glucose resu lt from 100 to 125 mg/dL suggests IMPAIRED HOMEOSTASIS per A.D.A. criteria. Neutrophils (Bld) [#/Vol] 2.9 10*3/uL 2.0-7.7 [facility] Neutrophils/100 WBC (Bld) 42.5 % 47-70 [facility] Potassium [Moles/Vol] 4.2 mmol/L 3.5-5.1 [facility] Protein [Mass/Vol] 7.3 g/dL 6.4-8.2 [facility] Sodium [Moles/Vol] 139 mmol/L 136-145 [facility] WBC (Bld) [#/Vol] 6.8 10*3/uL 4.4-11.0 [facility] Blood erythrocytes count (nu mber/volume)Ordered By: Dr. Cheng on 11-09-2022 RBC (Bld) [#/Vol] 4.36 10*6/uL 4.2-5.4 [facility] Blood hemoglobin measurement (mass/volume)Ordered By: Dr. Cheng on 11-09-2022 Hemoglobin (Bld) [Mass/Vol] 13.8 g/dL 12.0-15.0 [facility] Blood lymphocytes/100 leukoc ytesOrdered By: Dr. Cheng on 11-09-2022 Lymphocytes/100 WBC (Bld) 42.5 % 19-41 [facility] Blood monocytes/100 leukocyt esOrdered By: Dr. Cheng on 11-09-2022 Monocytes/100 WBC (Bld) 11.2 % 0-10 [facility] Blood platelet mean volumeOr dered By: Dr. Cheng on 11-09-2022 Platelet mean volume (Bld) [Entitic vol] 9.2 fL 6.2-12.0 [facility] Determination of erythrocyte mean corpuscular volume (MCV)Ordered By: Dr. Cheng on 11-09-2022 MCV (RBC) [Entitic vol] 95.4 fL 81-99 [facility] Hematocrit Auto (Bld) [Volum e fraction]Ordered By: Dr. Cheng on 11-09-2022 Hematocrit (Bld) [Volume fraction] 41.6 % 37-47 [facility] Laboratory - Chemistry and C hemistry - challengeOrdered By: Dr. Cheng on 11-09-2022 Albumin [Mass/Vol] 3.9 g/dL 2.9-4.4 [facility] ALP [Catalytic activity/Vol] 68 U/L 45-117 [facility] ALT [Catalytic activity/Vol] 42 U/L 13-56 [facility] CO2 [Moles/Vol] 26.0 mmol/L 21.0-32.0 [facility] Globulin (S) [Mass/Vol] 3.3 g/dL 2.2-4.2 [facility] Urea nitrogen/Creatinine [Mass ratio] 30.0 mg/mg 10-20 [facility] Laboratory - Hematology and Cell countsOrdered By: Dr. Cheng on 11-09-2022 Erythrocyte distribution width (RBC) [Entitic vol] 44.7 fL 35.1-43.9 [facility] Erythrocyte distribution width (RBC) [Ratio] 12.8 % 11.6-14.6 [facility] Immature granulocytes/100 WBC (Bld) 0.100 % 0.0-0.9 [facility] Comment on above: IG% - Immature Granu locytes (promyelocytes, myelocytes and metamyelocytes) > 1% indicates that a LEFT SHIFT is Present. MCH (RBC) [Entitic mass] 31.7 pg 27.0-32.0 [facility] Nucleated RBC/100 WBC (Bld) [Ratio] 0 % 0-5 [facility] MCHC Auto (RBC) [Mass/Vol]Or dered By: Dr. Cheng on 11-09-2022 MCHC (RBC) [Mass/Vol] 33.2 g/dL 32-36 [facility] No Panel InformationOrdered By: Dr. Cheng on 11-09-2022 Addendum Document Comment . [facility] Comment on above: The SPE pattern appe ars unremarkable. Evidence ofmonoclonal protein is not apparent.Performed at: [facility] [address] [id number] Director: Dominick De La Rosa PhD, Phone: [phone] Rmtpx-7-Bejtgirgz 0.2 g/dL 0.0-0.4 [facility] Rfqaq-2-Rhmmorqaa 0.6 g/dL 0.4-1.0 [facility] Estimated GFR (MDRD) Amer 87 mL/min >60 [facility] Comment on above: GFR Calc Estimated GFR (MDRD) Non-Af Amer 72 mL/min >60 [facility] Comment on above: Non- GFR Calc Gamma Globulins 1.2 g/dL 0.4-1.8 [facility] Platelets bldOrdered By: Dr. Cheng on 11-09-2022 Platelets (Bld) [#/Vol] 312 10*3/uL 150-450 [facility] Protein Fractions Elph [Inte rp]Ordered By: Dr. Cheng on 11-09-2022 Protein Fractions [Interp] Comment . [facility] Comment on above: Protein electrophore sis scan will follow via computer,mail, or comb capper delivery. Serum albumin to globulin ra marilyn by protein electrophoresisOrdered By: Dr. Cheng on 11-09-2022 Albumin/Globulin Elph [Mass ratio] 1.3 0.7-1.7 [facility] Serum globulin measurement ( mass/volume)Ordered By: Dr. hCeng on 11-09-2022 Globulin (S) [Mass/Vol] 3.0 g/dL 2.2-3.9 [facility] Serum or plasma C reactive p rotein measurement (mass/volume)Ordered By: Dr. Cheng on 11-09-2022 CRP [Mass/Vol] mg/L 0.0-3.0 [facility] Comment on above: C-Reactive Protein ( CRP) provides useful information for thediagnosis, therapy and monitoring of inflammatory processesand associated diseases. For the evaluation of Relative Riskfor Cardiovascular Disease, a High Sensitivity CRP (HSCRP)should be ordered. Serum or plasma albumin hannah urement (mass/volume)Ordered By: Dr. Cheng on 11-09-2022 Albumin [Mass/Vol] 4.0 g/dL 3.2-5.0 [facility] Serum or plasma albumin/glob ulin mass ratioOrdered By: Dr. Cheng on 11-09-2022 Albumin/Globulin [Mass ratio] 1.2 {ratio} 0.9-2.4 [facility] Serum or plasma beta globuli n measurement by electrophoresis (mass/volume)Ordered By: Dr. Cheng on 11-09-2022 Beta globulin Elph [Mass/Vol] 1.1 g/dL 0.7-1.3 [facility] Serum or plasma calcium hannah urement (mass/volume)Ordered By: Dr. Cheng on 11-09-2022 Calcium [Mass/Vol] 9.4 mg/dL 8.5-10.1 [facility] Serum or plasma creatinine m easurement (mass/volume)Ordered By: Dr. Cheng on 11-09-2022 Creatinine [Mass/Vol] 0.87 mg/dL 0.55-1.02 [facility] Comment on above: The validity of the calculated GFR & GFRAA in patients over 70 years has not been determined. Clinical correlation is essential. Serum or plasma urea nitroge n measurement (mass/volume)Ordered By: Dr. Cheng on 11-09-2022 Urea nitrogen [Mass/Vol] 26 mg/dL 7-18 [facility] Thin prep Papanicolaou smear with manual screeningOrdered By: Dr. Cheng on 11-09-2022 Thin prep Papanicolaou smear with manual screening 28 U/L 15-37 [facility] Thin prep Papanicolaou smear with manual screening 6 5-15 [facility] Thin prep Papanicolaou smear with manual screening See comment [facility] Comment on above: Result: Not Observed Total protein bloodOrdered B y: Dr. Cheng on 11-09-2022 Protein [Mass/Vol] 6.9 g/dL 6.0-8.5 [facility] Absolute lymphocyte counton 01-13-2022 Lymphocytes Auto (Unsp spec) [#/Vol] 2.39 10*3/uL 0.83-4.51 [facility] Work Phone: Basophil percentageon 2021 Basophils/100 WBC (Bld) 0.7 % 0-1 [facility] Work Phone: Bilirubin [Mass/Vol] 0.60 mg/dL 0.20-1.00 [facility] Work Phone: Comment on above: For patients on eltr ombopag therapy, use of Dimension [place] TBIL is not recommended. Chloride [Moles/Vol] 110 mmol/L 98-107 [facility] Work Phone: Eosinophils/100 WBC (Bld) 3.0 % 0-5 [facility] Work Phone: Glucose [Mass/Vol] 104 mg/dL 74-106 [facility] Work Phone: Comment on above: Fasting Glucose resu lt from 100 to 125 mg/dL suggests IMPAIRED HOMEOSTASIS per A.D.A. criteria. Neutrophils (Bld) [#/Vol] 2.3 10*3/uL 2.0-7.7 [facility] Work Phone: Neutrophils/100 WBC (Bld) 42.2 % 47-70 [facility] Work Phone: Potassium [Moles/Vol] 4.2 mmol/L 3.5-5.1 [facility] Work Phone: Protein [Mass/Vol] 6.8 g/dL 6.4-8.2 [facility] Work Phone: Sodium [Moles/Vol] 142 mmol/L 136-145 [facility] Work Phone: WBC (Bld) [#/Vol] 5.4 10*3/uL 4.4-11.0 [facility] Work Phone: Blood erythrocytes count (nu mber/volume)on 01-13-2022 RBC (Bld) [#/Vol] 3.81 10*6/uL 4.2-5.4 [facility] Work Phone: Blood hemoglobin measurement (mass/volume)on 01-13-2022 Hemoglobin (Bld) [Mass/Vol] 12.0 g/dL 12.0-15.0 [facility] Work Phone: Blood lymphocytes/100 leukoc yteson 01-13-2022 Lymphocytes/100 WBC (Bld) 44.1 % 19-41 [facility] Work Phone: Blood monocytes/100 leukocyt eson 01-13-2022 Monocytes/100 WBC (Bld) 9.8 % 0-10 [facility] Work Phone: Blood platelet mean volumeon 01-13-2022 Platelet mean volume (Bld) [Entitic vol] 9.2 fL 6.2-12.0 [facility] Work Phone: Determination of erythrocyte mean corpuscular volume (MCV)on 01-13-2022 MCV (RBC) [Entitic vol] 96.3 fL 81-99 [facility] Work Phone: Hematocrit Auto (Bld) [Volum e fraction]on 01-13-2022 Hematocrit (Bld) [Volume fraction] 36.7 % 37-47 [facility] Work Phone: Laboratory - Chemistry and C hemistry - challengeon 01-13-2022 ALP [Catalytic activity/Vol] 55 U/L 45-117 [facility] Work Phone: ALT [Catalytic activity/Vol] 52 U/L 13-56 [facility] Work Phone: CO2 [Moles/Vol] 30.0 mmol/L 21.0-32.0 [facility] Work Phone: Globulin (S) [Mass/Vol] 3.2 g/dL 2.2-4.2 [facility] Work Phone: Urea nitrogen/Creatinine [Mass ratio] 24.3 mg/mg 10-20 [facility] Work Phone: Laboratory - Hematology and Cell countson 01-13-2022 Erythrocyte distribution width (RBC) [Entitic vol] 43.4 fL 35.1-43.9 [facility] Work Phone: Erythrocyte distribution width (RBC) [Ratio] 12.3 % 11.6-14.6 [facility] Work Phone: Immature granulocytes/100 WBC (Bld) 0.200 % 0.0-0.9 [facility] Work Phone: Comment on above: IG% - Immature Granu locytes (promyelocytes, myelocytes and metamyelocytes) > 1% indicates that a LEFT SHIFT is Present. MCH (RBC) [Entitic mass] 31.5 pg 27.0-32.0 [facility] Work Phone: Nucleated RBC/100 WBC (Bld) [Ratio] 0 % 0-5 [facility] Work Phone: MCHC Auto (RBC) [Mass/Vol]on 01-13-2022 MCHC (RBC) [Mass/Vol] 32.7 g/dL 32-36 [facility] Work Phone: No Panel Informationon 01-13 Estimated GFR (MDRD) Amer 87 mL/min >60 [facility] Work Phone: Comment on above: GFR Calc Estimated GFR (MDRD) Non-Af Amer 72 mL/min >60 [facility] Work Phone: Comment on above: Non- GFR Calc Platelets bldon 01-13-2022 Platelets (Bld) [#/Vol] 238 10*3/uL 150-450 [facility] Work Phone: Serum or plasma albumin hannah urement (mass/volume)on 01-13-2022 Albumin [Mass/Vol] 3.6 g/dL 3.2-5.0 [facility] Work Phone: Serum or plasma albumin/glob ulin mass ratioon 01-13-2022 Albumin/Globulin [Mass ratio] 1.1 {ratio} 0.9-2.4 [facility] Work Phone: Serum or plasma calcium hannah urement (mass/volume)on 01-13-2022 Calcium [Mass/Vol] 8.8 mg/dL 8.5-10.1 [facility] Work Phone: Serum or plasma creatinine m easurement (mass/volume)on 01-13-2022 Creatinine [Mass/Vol] 0.86 mg/dL 0.55-1.02 [facility] Work Phone: Comment on above: The validity of the calculated GFR & GFRAA in patients over 70 years has not been determined. Clinical correlation is essential. Serum or plasma urea nitroge n measurement (mass/volume)on 01-13-2022 Urea nitrogen [Mass/Vol] 21 mg/dL 7-18 [facility] Work Phone: Thin prep Papanicolaou smear with manual screeningon 01-13-2022 Thin prep Papanicolaou smear with manual screening 30 U/L 15-37 [facility] Work Phone: Thin prep Papanicolaou smear with manual screening 2 5-15 [facility] Work Phone: Thin prep Papanicolaou smear with manual screening 158 U/L 84-246 [facility] Work Phone: Absolute lymphocyte counton 10-06-2021 Lymphocytes Auto (Unsp spec) [#/Vol] 2.55 10*3/uL 0.83-4.51 [facility] Work Phone: Basophil percentageon 2021 Basophils/100 WBC (Bld) 0.9 % 0-1 [facility] Work Phone: [phone] Bilirubin [Mass/Vol] 0.50 mg/dL 0.20-1.00 [facility] Work Phone: Comment on above: For patients on eltr ombopag therapy, use of Dimension [place] TBIL is not recommended. Chloride [Moles/Vol] 107 mmol/L 98-107 [facility] Work Phone: Eosinophils/100 WBC (Bld) 2.3 % 0-5 [facility] Work Phone: [phone] Glucose [Mass/Vol] 99 mg/dL 74-106 [facility] Work Phone: Neutrophils (Bld) [#/Vol] 2.9 10*3/uL 2.0-7.7 [facility] Work Phone: Neutrophils/100 WBC (Bld) 45.7 % 47-70 [facility] Work Phone: [phone] Potassium [Moles/Vol] 3.7 mmol/L 3.5-5.1 [facility] Work Phone: [phone] Protein [Mass/Vol] 7.6 g/dL 6.4-8.2 [facility] Work Phone: [phone] Sodium [Moles/Vol] 141 mmol/L 136-145 [facility] Work Phone: [phone] WBC (Bld) [#/Vol] 6.4 10*3/uL 4.4-11.0 [facility] Work Phone: [phone] Blood erythrocytes count (nu mber/volume)on 10-06-2021 RBC (Bld) [#/Vol] 3.87 10*6/uL 4.2-5.4 [facility] Work Phone: [phone] Blood hemoglobin measurement (mass/volume)on 10-06-2021 Hemoglobin (Bld) [Mass/Vol] 12.3 g/dL 12.0-15.0 [facility] Work Phone: Blood lymphocytes/100 leukoc yteson 10-06-2021 Lymphocytes/100 WBC (Bld) 39.8 % 19-41 [facility] Work Phone: Blood monocytes/100 leukocyt eson 10-06-2021 Monocytes/100 WBC (Bld) 11.1 % 0-10 [facility] Work Phone: Blood platelet mean volumeon 10-06-2021 Platelet mean volume (Bld) [Entitic vol] 8.7 fL 6.2-12.0 [facility] Work Phone: Determination of erythrocyte mean corpuscular volume (MCV)on 10-06-2021 MCV (RBC) [Entitic vol] 96.6 fL 81-99 [facility] Work Phone: Erythrocyte sedimentation ra gary 10-06-2021 ESR (Bld) [Velocity] 3 mm/h 0-[facility] Work Phone: Hematocrit Auto (Bld) [Volum e fraction]on 10-06-2021 Hematocrit (Bld) [Volume fraction] 37.4 % 37-47 [facility] Work Phone: INR in Blood by Coagulation assayon 10-06-2021 INR Coag (Bld) [Relative time] 1.0 {INR} [facility] Work Phone: Laboratory - Chemistry and C hemistry - challengeon 10-06-2021 ALP [Catalytic activity/Vol] 62 U/L 45-117 [facility] Work Phone: ALT [Catalytic activity/Vol] 50 U/L 13-56 [facility] Work Phone: CO2 [Moles/Vol] 32.0 mmol/L 21.0-32.0 [facility] Work Phone: Globulin (S) [Mass/Vol] 3.6 g/dL 2.2-4.2 [facility] Work Phone: Urea nitrogen/Creatinine [Mass ratio] 19.3 mg/mg 10-20 [facility] Work Phone: Laboratory - Coagulationon 0 10-06-2021 aPTT Coag (Bld) [Time] 26.3 s 24.1-36.2 [facility] Work Phone: PT Coag (PPP) [Time] 12.4 s 11.7-14.9 [facility] Work Phone: Laboratory - Hematology and Cell countson 10-06-2021 Erythrocyte distribution width (RBC) [Entitic vol] 46.5 fL 35.1-43.9 [facility] Work Phone: Erythrocyte distribution width (RBC) [Ratio] 13.0 % 11.6-14.6 [facility] Work Phone: Immature granulocytes/100 WBC (Bld) 0.200 % 0.0-0.9 [facility] Work Phone: Comment on above: IG% - Immature Granu locytes (promyelocytes, myelocytes and metamyelocytes) > 1% indicates that a LEFT SHIFT is Present. MCH (RBC) [Entitic mass] 31.8 pg 27.0-32.0 [facility] Work Phone: Nucleated RBC/100 WBC (Bld) [Ratio] 0 % 0-5 [facility] Work Phone: MCHC Auto (RBC) [Mass/Vol]on 10-06-2021 MCHC (RBC) [Mass/Vol] 32.9 g/dL 32-36 [facility] Work Phone: No Panel Informationon 10-06 Estimated GFR (MDRD) Amer 85 mL/min >60 [facility] Work Phone: Comment on above: GFR Calc Estimated GFR (MDRD) Non-Af Amer 70 mL/min >60 [facility] Work Phone: Comment on above: Non- GFR Calc Platelets bldon 10-06-2021 Platelets (Bld) [#/Vol] 276 10*3/uL 150-450 [facility] Work Phone: Serum or plasma albumin hannah urement (mass/volume)on 10-06-2021 Albumin [Mass/Vol] 4.0 g/dL 3.2-5.0 [facility] Work Phone: Serum or plasma albumin/glob ulin mass ratioon 10-06-2021 Albumin/Globulin [Mass ratio] 1.1 {ratio} 0.9-2.4 [facility] Work Phone: Serum or plasma calcium hannah urement (mass/volume)on 10-06-2021 Calcium [Mass/Vol] 9.0 mg/dL 8.5-10.1 [facility] Work Phone: Serum or plasma creatinine m easurement (mass/volume)on 10-06-2021 Creatinine [Mass/Vol] 0.88 mg/dL 0.55-1.02 [facility] Work Phone: Comment on above: The validity of the calculated GFR & GFRAA in patients over 70 years has not been determined. Clinical correlation is essential. Serum or plasma urea nitroge n measurement (mass/volume)on 10-06-2021 Urea nitrogen [Mass/Vol] 17 mg/dL 7-18 [facility] Work Phone: Thin prep Papanicolaou smear with manual screeningon 10-06-2021 Thin prep Papanicolaou smear with manual screening 33 U/L 15-37 [facility] Work Phone: Thin prep Papanicolaou smear with manual screening 2 5-15 [facility] Work Phone: Thin prep Papanicolaou smear with manual screening 175 U/L 84-246 [facility] Work Phone: Basophil percentageon 2021 WBC (Bld) [#/Vol] 7.7 10*3/uL 4.4-11.0 [facility] Work Phone: Blood erythrocytes count (nu mber/volume)on 07-26-2021 RBC (Bld) [#/Vol] 4.04 10*6/uL 4.2-5.4 [facility] Work Phone: Blood hemoglobin measurement (mass/volume)on 07-26-2021 Hemoglobin (Bld) [Mass/Vol] 13.0 g/dL 12.0-15.0 [facility] Work Phone: Blood platelet mean volumeon 07-26-2021 Platelet mean volume (Bld) [Entitic vol] 9.3 fL 6.2-12.0 [facility] Work Phone: Determination of erythrocyte mean corpuscular volume (MCV)on 07-26-2021 MCV (RBC) [Entitic vol] 96.5 fL 81-99 [facility] Work Phone: Hematocrit Auto (Bld) [Volum e fraction]on 07-26-2021 Hematocrit (Bld) [Volume fraction] 39.0 % 37-47 [facility] Work Phone: Laboratory - Hematology and Cell countson 07-26-2021 Erythrocyte distribution width (RBC) [Entitic vol] 44.2 fL 35.1-43.9 [facility] Work Phone: Erythrocyte distribution width (RBC) [Ratio] 12.5 % 11.6-14.6 [facility] Work Phone: MCH (RBC) [Entitic mass] 32.2 pg 27.0-32.0 [facility] Work Phone: MCHC Auto (RBC) [Mass/Vol]on 07-26-2021 MCHC (RBC) [Mass/Vol] 33.3 g/dL 32-36 [facility] Work Phone: No Panel Informationon 07-26 Vitamin D 25-Hydroxy 26.6 ng/mL [facility] Work Phone: Comment on above: Vitamin D 25(OH) Sta tus Range Deficiency <20 ng/mL (50nmol/L) Insufficiency 20 - 30 ng/mL (50 - 75 nmol/L) Sufficiency 30 - 100 ng/mL (75 - 250 nmol/L) Toxicity >100 ng/mL (>250 nmol/L) Platelets bldon 07-26-2021 Platelets (Bld) [#/Vol] 296 10*3/uL 150-450 [facility] Work Phone: Discharge Summaryon 06-27-19 18 Discharge Summary Normal [facility]) Main OR Intraop [facility] Main OR Intraop Record Normal [facility] ([place]) CBLon 06-07-2017 CBL . MICRO - MicrobiologyPROCEDURE: Blood Culture (bacterial) [*1]SOURCE: Blood BODY SITE:COLLECTED DATE/TIME: 06/02/2017 03:58 EST RECEIVED DATE/TIME: 06/02/2017 07:56 ESTSTART DATE/TIME: 06/02/2017 07:57 EST FREE TEXT SOURCE:FINAL REPORTSFinal Report []Verified Date/Time/Personnel: 06/07/2017 07:59 ESTBlood Culture: No Growth at 5 days.PRELIMINARY REPORTSPreliminary Report []Verified Date/Time/Personnel: 06/02/2017 08:59 ESTCulture has been received in lab and is no growth to date. Routine cultures are held for 5 days.Performing Locations*1: This test was performed at: [address], [address] [place] [address] ([place]) Comment on above: Performed By: #### C BC, ADIFF, ANEU, PRO, GFR, CMP ####[place] [id number] CBL . MICRO - MicrobiologyPROCEDURE: Blood Culture (bacterial) [*1]SOURCE: Blood BODY SITE:COLLECTED DATE/TIME: 06/02/2017 04:04 EST RECEIVED DATE/TIME: 06/02/2017 07:56 ESTSTART DATE/TIME: 06/02/2017 07:57 EST FREE TEXT SOURCE:FINAL REPORTSFinal Report []Verified Date/Time/Personnel: 06/07/2017 07:59 ESTBlood Culture: No Growth at 5 days.PRELIMINARY REPORTSPreliminary Report []Verified Date/Time/Personnel: 06/02/2017 08:59 ESTCulture has been received in lab and is no growth to date. Routine cultures are held for 5 days.Performing Locations*1: This test was performed at: [facility], [address] [place] [address], [facility] , [facility] ([place]) Comment on above: Performed By: #### C BC, ADIFF, ANEU, PRO, GFR, CMP ####[place] [id number] CGEFANon 06-05-2017 CGEFAN . MICRO - MicrobiologyPROCEDURE: Genital Culture with Anaerobe [*1]SOURCE: Vaginal BODY SITE:COLLECTED DATE/TIME: 06/02/2017 12:50 EST RECEIVED DATE/TIME: 06/02/2017 12:51 ESTSTART DATE/TIME: 06/02/2017 12:51 EST FREE TEXT SOURCE: vaginal cuff drainageFINAL REPORTSFinal Report []Verified Date/Time/Personnel: 06/05/2017 10:21 ESTNormal Vaginal Herminia: AbsentGroup B Streptococcus: NegativeLight Escherichia coliNeisseria gonorrhoeae: NegativeNo anaerobes isolated at 96 hours.PRELIMINARY REPORTSPreliminary Report []Verified Date/Time/Personnel: 06/05/2017 08:20 ESTNormal Vaginal Herminia: AbsentGroup B Streptococcus: NegativeLight Escherichia coliNeisseria gonorrhoeae: NegativePreliminary Report []Verified Date/Time/Personnel: 06/04/2017 07:49 ESTNormal Vaginal Herminia: AbsentGroup B Streptococcus: NegativeLight Gram Negative RodsFinal identification and PETE to follow.Neisseria gonorrhoeae: PendingPreliminary Report []Verified Date/Time/Personnel: 06/03/2017 12:20 ESTCulture results pending.STAINSWPREP []Verified Date/Time/Personnel: 06/05/2017 10:47 ESTTest not performedGS []Verified Date/Time/Personnel: 06/02/2017 14:13 ESTRare Gram Negative RodsSUSCEPTIBILITY RESULTS Escherichia coliAntibiotic PETE Dilutn PETE InterpAmoxicillin/ <=8/4 SusceptibleClavulanateAmpi cillin >16 ResistantCefazolin <=8 SusceptibleCefotaxime <=2 SusceptibleCiprofloxacin <=1 SusceptibleGentamicin <=4 SusceptibleLevofloxacin <=2 SusceptibleMeropenem <=1 SusceptibleTrimethoprim/ >2/38 ResistantSulfaPerforming Locations*1: This test was performed at: [facility], [address] [place] [address], [address] [place] [address] Normal [facility] ([place]) Comment on above: Performed By: #### C BC, ADIFF, ANEU, PRO, GFR, CMP ####[place] [address] Depart Summaryon 06-05-2017 Depart Summary Normal [facility] ([place]) CONFERENCE ORGANIZER Rounding Noteon 06-05-20 17 CONFERENCE ORGANIZER Rounding Note Normal [facility]) CONFERENCE ORGANIZER Rounding Note Normal [facility]) Infectious Disease Progress Noteon 06-05-2017 Infectious Disease Progress Note Normal [facility] [place] Inpatient Patient Summaryon 06-05-2017 Inpatient Patient Summary Normal [facility]) Infectious Disease Progress Noteon 06-04-2017 Infectious Disease Progress Note Normal [facility] ([place]) Progress Note-Nurseon 2016 Progress Note-Nurse Normal [facility] ([place]) [facility] 06-04-2017 LDose Vancomycin:(trough) See eMAR Normal [facility] ([place]) Comment on above: Performed By: #### C BC, ADIFF, ANEU, PRO, GFR, CMP ####[place] [address] VANCOMYCIN 12.0 mcg/mL Normal 5.0-20.0 [facility]) Comment on above: Performed By: #### C BC, ADIFF, ANEU, PRO, GFR, CMP ####[place] [address] .Auto Diffon 06-03-2017 Basophils Auto #/vol (Bld) 0.00 10 3/mcL Normal 0.00-0.27 [facility] ([place]) Comment on above: Performed By: #### C BC, ADIFF, ANEU, PRO, GFR, CMP ####[address] [address] Basophils/100 WBC Auto (Bld) 0.3 % Normal 0.0-2.5 [facility] ([place]) Comment on above: Performed By: #### C BC, ADIFF, ANEU, PRO, GFR, CMP ####[address] [address] Eosinophils 0.30 10 3/mcL Normal 0.00-0.65 [facility] ([place]) Comment on above: Performed By: #### C BC, ADIFF, ANEU, PRO, GFR, CMP ####[address] [address] Eosinophils/100 leukocytes 2.5 % Normal 0.0-6.0 [facility] ([place]) Comment on above: Performed By: #### C BC, ADIFF, ANEU, PRO, GFR, CMP ####[address] [address] Lymphocytes 2.00 10 3/mcL Normal 0.90-4.32 [facility] ([place]) Comment on above: Performed By: #### C BC, ADIFF, ANEU, PRO, GFR, CMP ####[address] [address] Lymphocytes/100 leukocytes 16.1 % Low 20.0-40.0 [facility] ([place]) Comment on above: Performed By: #### C BC, ADIFF, ANEU, PRO, GFR, CMP ####[address] [address] Monocytes 0.70 10 3/mcL Normal 0.09-1.40 [facility] ([place]) Comment on above: Performed By: #### C BC, ADIFF, ANEU, PRO, GFR, CMP ####[address] [address] Monocytes/100 leukocytes 5.8 % Normal 2.0-13.0 [facility] ([place]) Comment on above: Performed By: #### C BC, ADIFF, ANEU, PRO, GFR, CMP ####[address] [address] Neutrophils/100 WBC Auto (Bld) 75.3 % High 50.0-75.0 [facility] ([place]) Comment on above: Performed By: #### C BC, ADIFF, ANEU, PRO, GFR, CMP ####[place] [address] .GFRon 06-03-2017 eGFR (non-black) mL/min/{1.73_m2} Normal [facility] ([place]) Comment on above: Result Comment: GFR Population mean for , Non- Americans Ages 20-29 = 116 mL/min/1.73 sq.m. Ages 30-39 = 107 mL/min/1.73 sq.m. Ages 40-49 = 99 mL/min/1.73 sq.m. Ages 50-59 = 93 mL/min/1.73 sq.m. Ages 60-69 = 85 mL/min/1.73 sq.m. Ages 70+ = 75 mL/min/1.73 sq.m.Chronic Kidney Disease: Less than 60 mL/min/1.73 square metersEnd Stage Renal Disease: Less than 15 mL/min/1.73 square meters Performed By: #### C BC, ADIFF, ANEU, PRO, GFR, CMP ####[place] [address] .NEUABSon 06-03-2017 Neutrophils 9.40 10 3/mcL High 2.25-8.10 [facility] ([place]) Comment on above: Performed By: #### C BC, ADIFF, ANEU, PRO, GFR, CMP ####[place] [address] CBCon 06-03-2017 Erythrocyte distribution width Auto Ratio (RBC) 12.4 % Normal 11.5-15.5 [facility] ([place]) Comment on above: Performed By: #### C BC, ADIFF, ANEU, PRO, GFR, CMP ####[place] [address] Erythrocytes (RBC) 3.54 10 6/mcL Low 4.10-5.30 [facility] ([place]) Comment on above: Performed By: #### C BC, ADIFF, ANEU, PRO, GFR, CMP ####[place] [address] Hematocrit (HCT) 32.5 % Low 34.0-46.0 [facility] ([place]) Comment on above: Performed By: #### C BC, ADIFF, ANEU, PRO, GFR, CMP ####[place] [address] Hemoglobin mass conc (Bld) 11.2 G/dL Low 12.0-16.0 [facility] ([place]) Comment on above: Performed By: #### C BC, ADIFF, ANEU, PRO, GFR, CMP ####[place] [address] MCH 31.6 pg Normal 27.0-33.0 [facility] ([place]) Comment on above: Performed By: #### C BC, ADIFF, ANEU, PRO, GFR, CMP ####[place] [address] MCHC mass conc (RBC) 34.5 G/dL Normal 32.0-36.0 [facility] ([place]) Comment on above: Performed By: #### C BC, ADIFF, ANEU, PRO, GFR, CMP ####[place] [address] MCV 91.6 fL Normal 80.0-99.0 [facility] ([place]) Comment on above: Performed By: #### C BC, ADIFF, ANEU, PRO, GFR, CMP ####[place] [address] Platelet mean volume (PMV) 6.9 fL Normal 6.6-10.5 [facility] ([place]) Comment on above: Performed By: #### C BC, ADIFF, ANEU, PRO, GFR, CMP ####[place] [address] Platelets 339 10 3/mcL Normal 150-450 [facility] ([place]) Comment on above: Performed By: #### C BC, ADIFF, ANEU, PRO, GFR, CMP ####[place] [address] WBC (Leukocytes) 12.40 10 3/mcL High 4.50-10.80 [facility] ([place]) Comment on above: Performed By: #### C BC, ADIFF, ANEU, PRO, GFR, CMP ####[place] [address] CMPon 06-03-2017 Alanine aminotransferase (ALT) 24 U/L Normal 10-49 [facility] ([place]) Comment on above: Performed By: #### C BC, ADIFF, ANEU, PRO, GFR, CMP ####[place] [address] Albumin/Globulin Ratio 1.0 {ratio} Normal 0.9-1.6 [facility] ([place]) Comment on above: Performed By: #### C BC, ADIFF, ANEU, PRO, GFR, CMP ####[place] [address] Alk Phos 62 U/L Normal 38-126 [facility] ([place]) Comment on above: Performed By: #### C BC, ADIFF, ANEU, PRO, GFR, CMP ####[place] [address] Bili Total 0.6 mg/dL Normal 0.2-1.2 [facility] ([place]) Comment on above: Performed By: #### C BC, ADIFF, ANEU, PRO, GFR, CMP ####[place] [address] BUN/Creatinine Ratio 8.7 ratio Low 10.0-22.0 [facility] ([place]) Comment on above: Performed By: #### C BC, ADIFF, ANEU, PRO, GFR, CMP ####[place] [address] Creatinine 0.69 mg/dL Normal 0.50-1.20 [facility] ([place]) Comment on above: Performed By: #### C BC, ADIFF, ANEU, PRO, GFR, CMP ####[place] [address] Globulin 3.1 G/dL Normal 1.5-3.8 [facility] ([place]) Comment on above: Performed By: #### C BC, ADIFF, ANEU, PRO, GFR, CMP ####[place] [address] Protein 6.2 G/dL Normal 6.0-8.5 [facility] ([place]) Comment on above: Performed By: #### C BC, ADIFF, ANEU, PRO, GFR, CMP ####[place] [address] Albumin 3.1 G/dL Low 3.2-4.8 [facility] ([place]) Comment on above: Performed By: #### C BC, ADIFF, ANEU, PRO, GFR, CMP ####[place] [address] Aspartate aminotransferase (AST) 9 U/L Normal 8-34 [facility] ([place]) Comment on above: Performed By: #### C BC, ADIFF, ANEU, PRO, GFR, CMP ####[place] [address] Calcium 8.2 mg/dL Low 8.4-10.1 [facility] ([place]) Comment on above: Performed By: #### C BC, ADIFF, ANEU, PRO, GFR, CMP ####[place] [address] Chloride 108 mmol/L Normal 98-110 [facility] ([place]) Comment on above: Performed By: #### C BC, ADIFF, ANEU, PRO, GFR, CMP ####[place] [address] CO2 22 mmol/L Normal 22-32 [facility] ([place]) Comment on above: Performed By: #### C BC, ADIFF, ANEU, PRO, GFR, CMP ####[place] [address] Electrolyte Balance 8.0 mEq/L Normal 4.0-15.0 [facility] ([place] Comment on above: Performed By: #### C BC, ADIFF, ANEU, PRO, GFR, CMP ####[place] [address] Glucose mass conc 130 mg/dL High 70-110 [facility] ([place]) Comment on above: Performed By: #### C BC, ADIFF, ANEU, PRO, GFR, CMP ####[address] [address] Potassium molar conc 4.0 mmol/L Normal 3.5-5.0 [facility] ([place]) Comment on above: Performed By: #### C BC, ADIFF, ANEU, PRO, GFR, CMP ####[address] [address] Sodium 138 mmol/L Normal 136-145 [facility] ([place]) Comment on above: Performed By: #### C BC, ADIFF, ANEU, PRO, GFR, CMP ####[address] [address] Urea nitrogen 6.0 mg/dL Low 8.0-22.0 [facility] ([place]) Comment on above: Performed By: #### C BC, ADIFF, ANEU, PRO, GFR, CMP ####[place] [address] CONFERENCE ORGANIZER Rounding Noteon 06-03-20 17 CONFERENCE ORGANIZER Rounding Note Normal [facility] ([place]) Infectious Disease Progress Noteon 06-03-2017 Infectious Disease Progress Note Normal [facility]) Progress Note-Nurseon 2016 Progress Note-Nurse Normal [facility] ([place]) .Auto Diffon 06-02-2017 Basophils Auto #/vol (Bld) 0.00 10 3/mcL Normal 0.00-0.27 [facility] ([place]) Comment on above: Performed By: #### C BC, ADIFF, ANEU, PRO, GFR, CMP ####[place] [address] Basophils/100 WBC Auto (Bld) 0.1 % Normal 0.0-2.5 [facility] ([place]) Comment on above: Performed By: #### C BC, ADIFF, ANEU, PRO, GFR, CMP ####[place] [address] Eosinophils 0.10 10 3/mcL Normal 0.00-0.65 [facility] ([place]) Comment on above: Performed By: #### C BC, ADIFF, ANEU, PRO, GFR, CMP ####[address] [address] Eosinophils/100 leukocytes 0.8 % Normal 0.0-6.0 [facility] ([place]) Comment on above: Performed By: #### C BC, ADIFF, ANEU, PRO, GFR, CMP ####[address] [address] Lymphocytes 2.80 10 3/mcL Normal 0.90-4.32 [facility] ([place]) Comment on above: Performed By: #### C BC, ADIFF, ANEU, PRO, GFR, CMP ####[address] [address] Lymphocytes/100 leukocytes 17.5 % Low 20.0-40.0 [facility] ([place]) Comment on above: Performed By: #### C BC, ADIFF, ANEU, PRO, GFR, CMP ####[address] [address] Monocytes 1.50 10 3/mcL High 0.09-1.40 [facility] ([place]) Comment on above: Performed By: #### C BC, ADIFF, ANEU, PRO, GFR, CMP ####[address] [address] Monocytes/100 leukocytes 9.5 % Normal 2.0-13.0 [facility] ([place]) Comment on above: Performed By: #### C BC, ADIFF, ANEU, PRO, GFR, CMP ####[address] [address] Neutrophils/100 WBC Auto (Bld) 72.1 % Normal 50.0-75.0 [facility] ([place]) Comment on above: Performed By: #### C BC, ADIFF, ANEU, PRO, GFR, CMP ####[address] [address] .GFRon 06-02-2017 eGFR (non-black) mL/min/{1.73_m2} Normal [facility] ([place]) Comment on above: Result Comment: GFR Population mean for , Non- Americans Ages 20-29 = 116 mL/min/1.73 sq.m. Ages 30-39 = 107 mL/min/1.73 sq.m. Ages 40-49 = 99 mL/min/1.73 sq.m. Ages 50-59 = 93 mL/min/1.73 sq.m. Ages 60-69 = 85 mL/min/1.73 sq.m. Ages 70+ = 75 mL/min/1.73 sq.m.Chronic Kidney Disease: Less than 60 mL/min/1.73 square metersEnd Stage Renal Disease: Less than 15 mL/min/1.73 square meters Performed By: #### C BC, ADIFF, ANEU, PRO, GFR, CMP ####[address] [address] .NEUABSon 06-02-2017 Neutrophils 11.70 10 3/mcL High 2.25-8.10 [facility] ([place]) Comment on above: Performed By: #### C BC, ADIFF, ANEU, PRO, GFR, CMP ####[place] [address] CBCon 06-02-2017 Erythrocyte distribution width Auto Ratio (RBC) 12.6 % Normal 11.5-15.5 [facility] ([place]) Comment on above: Performed By: #### C BC, ADIFF, ANEU, PRO, GFR, CMP ####[place] [address] Erythrocytes (RBC) 3.69 10 6/mcL Low 4.10-5.30 [facility] ([place]) Comment on above: Performed By: #### C BC, ADIFF, ANEU, PRO, GFR, CMP ####[place] [address] Hematocrit (HCT) 34.4 % Normal 34.0-46.0 [facility] ([place]) Comment on above: Performed By: #### C BC, ADIFF, ANEU, PRO, GFR, CMP ####[place] [address] Hemoglobin mass conc (Bld) 11.6 G/dL Low 12.0-16.0 [facility] ([place]) Comment on above: Performed By: #### C BC, ADIFF, ANEU, PRO, GFR, CMP ####[place] [address] MCH 31.5 pg Normal 27.0-33.0 [facility] ([place]) Comment on above: Performed By: #### C BC, ADIFF, ANEU, PRO, GFR, CMP ####[place] [address] MCHC mass conc (RBC) 33.9 G/dL Normal 32.0-36.0 [facility] ([place]) Comment on above: Performed By: #### C BC, ADIFF, ANEU, PRO, GFR, CMP ####[place] [address] MCV 93.0 fL Normal 80.0-99.0 [facility] ([place]) Comment on above: Performed By: #### C BC, ADIFF, ANEU, PRO, GFR, CMP ####[place] [address] Platelet mean volume (PMV) 7.0 fL Normal 6.6-10.5 [facility] ([place]) Comment on above: Performed By: #### C BC, ADIFF, ANEU, PRO, GFR, CMP ####[place] [address] Platelets 370 10 3/mcL Normal 150-450 [facility] ([place]) Comment on above: Performed By: #### C BC, ADIFF, ANEU, PRO, GFR, CMP ####[place] [address] WBC (Leukocytes) 16.30 10 3/mcL High 4.50-10.80 [facility] ([place]) Comment on above: Performed By: #### C BC, ADIFF, ANEU, PRO, GFR, CMP ####[place] [address] CMPon 06-02-2017 Albumin/Globulin Ratio 1.0 {ratio} Normal 0.9-1.6 [facility] ([place]) Comment on above: Performed By: #### C BC, ADIFF, ANEU, PRO, GFR, CMP ####[place] [address] Alk Phos 61 U/L Normal 38-126 [facility] ([place]) Comment on above: Performed By: #### C BC, ADIFF, ANEU, PRO, GFR, CMP ####[place] [address] Bili Total 0.7 mg/dL Normal 0.2-1.2 [facility] ([place]) Comment on above: Performed By: #### C BC, ADIFF, ANEU, PRO, GFR, CMP ####[place] [address] Globulin 3.2 G/dL Normal 1.5-3.8 [facility] ([place]) Comment on above: Performed By: #### C BC, ADIFF, ANEU, PRO, GFR, CMP ####[place] [address] Protein 6.3 G/dL Normal 6.0-8.5 [facility] ([place]) Comment on above: Performed By: #### C BC, ADIFF, ANEU, PRO, GFR, CMP ####[place] [address] Alanine aminotransferase (ALT) 26 U/L Normal 10-49 [facility] ([place]) Comment on above: Performed By: #### C BC, ADIFF, ANEU, PRO, GFR, CMP ####[place] [address] Albumin 3.1 G/dL Low 3.2-4.8 [facility] ([place]) Comment on above: Performed By: #### C BC, ADIFF, ANEU, PRO, GFR, CMP ####[place] [address] Aspartate aminotransferase (AST) 13 U/L Normal 8-34 [facility] ([place]) Comment on above: Performed By: #### C BC, ADIFF, ANEU, PRO, GFR, CMP ####[place] [address] BUN/Creatinine Ratio 13.6 ratio Normal 10.0-22.0 [facility] ([place]) Comment on above: Performed By: #### C BC, ADIFF, ANEU, PRO, GFR, CMP ####[address] [address] Calcium 8.0 mg/dL Low 8.4-10.1 [facility] ([place]) Comment on above: Performed By: #### C BC, ADIFF, ANEU, PRO, GFR, CMP ####[place] [address] Chloride 111 mmol/L High 98-110 [facility] ([place]) Comment on above: Performed By: #### C BC, ADIFF, ANEU, PRO, GFR, CMP ####[place] [address] CO2 22 mmol/L Normal 22-32 [facility] ([place]) Comment on above: Performed By: #### C BC, ADIFF, ANEU, PRO, GFR, CMP ####[place] [address] Creatinine 0.81 mg/dL Normal 0.50-1.20 [facility] ([place]) Comment on above: Performed By: #### C BC, ADIFF, ANEU, PRO, GFR, CMP ####[place] [address] Electrolyte Balance 10.0 mEq/L Normal 4.0-15.0 [facility] ([place]) Comment on above: Performed By: #### C BC, ADIFF, ANEU, PRO, GFR, CMP ####[place] [address] Glucose mass conc 101 mg/dL Normal 70-110 [facility] ([place]) Comment on above: Performed By: #### C BC, ADIFF, ANEU, PRO, GFR, CMP ####[place] [address] Potassium molar conc 3.9 mmol/L Normal 3.5-5.0 [facility] ([place]) Comment on above: Performed By: #### C BC, ADIFF, ANEU, PRO, GFR, CMP ####[place] [address] Sodium 143 mmol/L Normal 136-145 [facility] ([place]) Comment on above: Performed By: #### C BC, ADIFF, ANEU, PRO, GFR, CMP ####[facility] [place] [address] Urea nitrogen 11.0 mg/dL Normal 8.0-22.0 [facility] ([place]) Comment on above: Performed By: #### C BC, DESIFF, ANEU, PRO, GFR, CMP ####[facility] [place] [id number] ABDOMEN/PELVIS W/CONTRAST on 06-02-2017 CT ABDOMEN/PELVIS W/CONTRAST ORIGINALCT ABDOMEN/PELVIS W/CONTRAST CLINICAL STATEMENT: Anterior abdominal wall/Pelvic abscess, assess for percutaneous drainage COMPARISON: 06/01/2017 FINDINGS: This exam was performed according to our departmental dose-optimization program which includes automated exposure control, adjustment of the mA and/or kVp according to patient size and/or use of iterative reconstruction technique where applicable. The heart is normal in size. Dependent atelectasis/consolidation noted in the lower lobes. Tiny punctate subpleural nodules are likely granulomas. No suspicious findings seen of the liver. The gallbladder, pancreas, adrenal glands and spleen are unremarkable. No suspicious renal lesions visualized. No inflammation seen of the small bowel. No inflammation seen of the colon. A Saeed catheter is identified. Hysterectomy changes noted. There is a complex fluid collection in the uterine fossa measuring approximately 3.8 x 5.6 cm. Surrounding inflammatory changes noted. There are numerous air and fluid collections in the lower abdominal wall, near the incision site. The collections are closely associated with the rectus musculature. The larger collection is to the left of midline and is 0.8 x 3.5 cm. Extensive inflammation seen in the abdominal wall. Small air lucencies noted in the bladder. There are no enlarged lymph nodes in the pelvis. Numerous subcentimeter retroperitoneal lymph nodes identified. Degenerative changes seen of the sacroiliac joints and spine. IMPRESSION: 1. Complex pelvic fluid collection in the uterine fossa may relate to an abscess or other postoperative collection. There is surrounding inflammation of the fat.2. Numerous small air and fluid collections in the lower abdominal wall, near the incision site. Again, small abscesses cannot be excluded. These collections are closely associated with the rectus musculature. There is significant inflammation in the lower abdominal wall.3. Tiny lung nodules are likely granulomas and do not require follow-up unless the patient is considered high risk for malignancy or if there is an known malignancy. If the patient is high risk, 12 month follow-up may be obtained. If there is a known malignancy, closer surveillance would be appropriate. 4. Other incidental findings, as above Interpreted By: Vinay Caireliminary Report By: Vinay Cai MDElectronically Signed By: Vinay Cai MD Dictated Date: 06/02/2017 12:22:41 PM Prelim Date: 06/02/2017 12:22:41 PM Sign Date: 06/02/2017 12:30:30 PM Normal [facility] ([place]) History and Physicalon 06-02 History and Physical Normal [facility]) Infectious Disease Consultat ionon 06-02-2017 Infectious Disease Consultation Normal [facility]) LACon 06-02-2017 Lactic Acid Lvl 1.4 mmol/L Normal 0.2-2.0 [facility]) Comment on above: Performed By: #### C BC, ADIFF, ANEU, PRO, GFR, CMP ####[place] [id number] [place] [id number] PROon 06-02-2017 INR Coag RelTime (PPP) 1.1 {INR} Normal [facility] ([place]) Comment on above: Result Comment: [employer] (CHEST, 1992, [id number])recommended therapeutic range for oral anticoagulant therapy is:LOW RISK: Prophylaxis of venous thrombosis INR: 2.0-3.0 Treatment of pulmonary embolism 2.0-3.0 Prevention of systemic embolism 2.0-3.0HIGH RISK: Mechanical prosthetic valves 2.5-3.5 Performed By: #### C BC, ADIFF, ANEU, PRO, GFR, CMP ####[place] [id number] [place] [address] Prothrombin time (PT) Coag time (PPP) 12.9 s Normal 9.0-14.5 [facility] ([place]) Comment on above: Result Comment: Effe ctive 12/25/07, Protime results may be affected by some antibiotics (i.e. Ciprofloxacin, Azithromycin, Bactrim) which may potentiate the action of oral anticoagulants, with further increases in Protime/INR. Performed By: #### C BC, ADIFF, ANEU, PRO, GFR, CMP ####[address] [address] Depart Summaryon 05-26-2017 Depart Summary Normal [facility] ([place]) Discharge Summaryon 05-26-20 Discharge Summary Normal [facility] ([place]) CONFERENCE ORGANIZER Rounding Noteon 05-26-20 17 CONFERENCE ORGANIZER Rounding Note Normal [facility] ([place] Inpatient Patient Summaryon 05-26-2017 Inpatient Patient Summary Normal [facility]) .Auto Diffon 05-25-2017 Basophils Auto #/vol (Bld) 0.00 10 3/mcL Normal 0.00-0.27 [facility] ([place]) Comment on above: Performed By: #### C BC, ADIFF, ANEU, PRO, GFR, CMP ####[address] [address] Basophils/100 WBC Auto (Bld) 0.1 % Normal 0.0-2.5 [facility] ([place]) Comment on above: Performed By: #### C BC, ADIFF, ANEU, PRO, GFR, CMP ####[address] [address] Eosinophils 0.00 10 3/mcL Normal 0.00-0.65 [facility] ([place]) Comment on above: Performed By: #### C BC, ADIFF, ANEU, PRO, GFR, CMP ####[address] [address] Eosinophils/100 leukocytes 0.0 % Normal 0.0-6.0 [facility] ([place]) Comment on above: Performed By: #### C BC, ADIFF, ANEU, PRO, GFR, CMP ####[address] [address] Lymphocytes 1.60 10 3/mcL Normal 0.90-4.32 [facility] ([place]) Comment on above: Performed By: #### C BC, ADIFF, ANEU, PRO, GFR, CMP ####[address] [address] Lymphocytes/100 leukocytes 12.5 % Low 20.0-40.0 [facility] ([place]) Comment on above: Performed By: #### C BC, ADIFF, ANEU, PRO, GFR, CMP ####[address] [address] Monocytes 1.50 10 3/mcL High 0.09-1.40 [facility] ([place]) Comment on above: Performed By: #### C BC, ADIFF, ANEU, PRO, GFR, CMP ####[address] [address] Monocytes/100 leukocytes 11.6 % Normal 2.0-13.0 [facility] ([place]) Comment on above: Performed By: #### C BC, ADIFF, ANEU, PRO, GFR, CMP ####[address] [address] Neutrophils/100 WBC Auto (Bld) 75.8 % High 50.0-75.0 [facility] ([place]) Comment on above: Performed By: #### C BC, ADIFF, ANEU, PRO, GFR, CMP ####[address] [address] .GFRon 05-25-2017 eGFR (non-black) mL/min/{1.73_m2} Normal [facility] ([place]) Comment on above: Result Comment: GFR Population mean for , Non- Americans Ages 20-29 = 116 mL/min/1.73 sq.m. Ages 30-39 = 107 mL/min/1.73 sq.m. Ages 40-49 = 99 mL/min/1.73 sq.m. Ages 50-59 = 93 mL/min/1.73 sq.m. Ages 60-69 = 85 mL/min/1.73 sq.m. Ages 70+ = 75 mL/min/1.73 sq.m.Chronic Kidney Disease: Less than 60 mL/min/1.73 square metersEnd Stage Renal Disease: Less than 15 mL/min/1.73 square meters Performed By: #### C BC, ADIFF, ANEU, PRO, GFR, CMP ####[address] [address] eGFR (non-black) mL/min/{1.73_m2} Normal [facility] ([place]) Comment on above: Result Comment: GFR Population mean for , Non- Americans Ages 20-29 = 116 mL/min/1.73 sq.m. Ages 30-39 = 107 mL/min/1.73 sq.m. Ages 40-49 = 99 mL/min/1.73 sq.m. Ages 50-59 = 93 mL/min/1.73 sq.m. Ages 60-69 = 85 mL/min/1.73 sq.m. Ages 70+ = 75 mL/min/1.73 sq.m.Chronic Kidney Disease: Less than 60 mL/min/1.73 square metersEnd Stage Renal Disease: Less than 15 mL/min/1.73 square meters Performed By: #### C BC, ADIFF, ANEU, PRO, GFR, CMP ####[place] [address] .NEUABSon 05-25-2017 Neutrophils 9.90 10 3/mcL High 2.25-8.10 [facility] ([place]) Comment on above: Performed By: #### C BC, ADIFF, ANEU, PRO, GFR, CMP ####[place] [address] BMPon 05-25-2017 BUN/Creatinine Ratio 10.0 ratio Normal 10.0-22.0 [facility] ([place]) Comment on above: Performed By: #### C BC, ADIFF, ANEU, PRO, GFR, CMP ####[place] [address] Creatinine 0.80 mg/dL Normal 0.50-1.20 [facility] ([place]) Comment on above: Performed By: #### C BC, ADIFF, ANEU, PRO, GFR, CMP ####[place] [address] Calcium 8.4 mg/dL Normal 8.4-10.1 [facility] ([place]) Comment on above: Performed By: #### C BC, ADIFF, ANEU, PRO, GFR, CMP ####[place] [address] Chloride 110 mmol/L Normal 98-110 [facility] ([place] Comment on above: Performed By: #### C BC, ADIFF, ANEU, PRO, GFR, CMP ####[place] [address] CO2 25 mmol/L Normal 22-32 [facility] ([place]) Comment on above: Performed By: #### C BC, ADIFF, ANEU, PRO, GFR, CMP ####[place] [address] Electrolyte Balance 5.0 mEq/L Normal 4.0-15.0 [facility] ([place] Comment on above: Performed By: #### C BC, ADIFF, ANEU, PRO, GFR, CMP ####[place] [address] Glucose mass conc 135 mg/dL High 70-110 [facility] ([place]) Comment on above: Performed By: #### C BC, ADIFF, ANEU, PRO, GFR, CMP ####[place] [address] Potassium molar conc 4.2 mmol/L Normal 3.5-5.0 [facility] ([place]) Comment on above: Performed By: #### C BC, ADIFF, ANEU, PRO, GFR, CMP ####[place] [address] Sodium 140 mmol/L Normal 136-145 [facility] ([place]) Comment on above: Performed By: #### C BC, ADIFF, ANEU, PRO, GFR, CMP ####[place] [address] Urea nitrogen 8.0 mg/dL Normal 8.0-22.0 [facility] ([place]) Comment on above: Performed By: #### C BC, ADIFF, ANEU, PRO, GFR, CMP ####[place] [address] CBCon 05-25-2017 Erythrocyte distribution width Auto Ratio (RBC) 13.0 % Normal 11.5-15.5 [facility] ([place]) Comment on above: Performed By: #### C BC, ADIFF, ANEU, PRO, GFR, CMP ####[place] [address] Erythrocytes (RBC) 3.80 10 6/mcL Low 4.10-5.30 [facility] ([place]) Comment on above: Performed By: #### C BC, ADIFF, ANEU, PRO, GFR, CMP ####[place] [address] Hematocrit (HCT) 35.7 % Normal 34.0-46.0 [facility] ([place]) Comment on above: Performed By: #### C BC, ADIFF, ANEU, PRO, GFR, CMP ####[place] [address] Hemoglobin mass conc (Bld) 12.2 G/dL Normal 12.0-16.0 [facility] ([place]) Comment on above: Performed By: #### C BC, ADIFF, ANEU, PRO, GFR, CMP ####[place] [address] MCH 32.2 pg Normal 27.0-33.0 [facility] ([place] Comment on above: Performed By: #### C BC, ADIFF, ANEU, PRO, GFR, CMP ####[place] [address] MCHC mass conc (RBC) 34.2 G/dL Normal 32.0-36.0 [facility] ([place] Comment on above: Performed By: #### C BC, ADIFF, ANEU, PRO, GFR, CMP ####[place] [address] MCV 94.0 fL Normal 80.0-99.0 [facility] ([place] Comment on above: Performed By: #### C BC, ADIFF, ANEU, PRO, GFR, CMP ####[place] [address] Platelet mean volume (PMV) 7.2 fL Normal 6.6-10.5 [facility] ([place]) Comment on above: Performed By: #### C BC, ADIFF, ANEU, PRO, GFR, CMP ####[place] [address] Platelets 253 10 3/mcL Normal 150-450 [facility] ([place]) Comment on above: Performed By: #### C BC, ADIFF, ANEU, PRO, GFR, CMP ####[place] [id number] [place] [id number] WBC (Leukocytes) 13.00 10 3/mcL High 4.50-10.80 [facility] ([place]) Comment on above: Performed By: #### C BC, ADIFF, ANEU, PRO, GFR, CMP ####[place] [id number] [place] [id number] Final Surgical Pathology Rep [facility] 05-25-2017 Final Surgical Pathology Report . Pathology ReportsAccession: Collected Date/Time: Received Date/Time: Pathologist:[id number] 05/24/2017 08:52 EST 05/24/2017 10:31 EST DO NEEMA LOREDO Final Surgical Pathology ReportDIAGNOSIS:A) LEFT OVARY WITH CYSTIC FOLLICLES AND L EFT FALLOPIAN TUBE WITH A PARATUBAL CYST.B) RIGHT OVARY WITH CYSTIC FOLLICLES AND RIGHT FALLOPIAN TUBE WITH A PARATUBAL CYST.C) UTERUS (124 GRAMS) WITH A PROLIFERATIVE ENDOMETRIUM. ADENOMYOSIS. CHRONIC CYSTIC ENDOCERVICITIS.CLINICAL INFORMATION:PROCEDURE: TOTAL ABDOMINAL HYSTERECTOMY / BILATERAL SALPINGO-OOPHORECTOMY / POSSIBLE STAGINGPREOP DIAGNOSIS: PELVIC MASSPOSTOP DIAGNOSIS: SAMESPECIMEN:A OVARY, XNEOP - LEFT TUBE AND OVARYB OVARY, XNEOP - RIGHT TUBE AND OVARYC UTERUS, OTHER - CERVIX, UTERUSGROSS DESCRIPTION:_A. Received in formalin labeled left tube and ovary is a 15 g, 2.6 x 1.9 x 1.4 cm ovary with attached pedicle and fallopian tube. The outer surface of the ovary is regan-yellow and smooth to cerebriform. Sectioning shows multiple cortical cysts measuring up to 1.4 cm in greatest dimension. The cystic lesions range from containing clear fluid to hemorrhagic material. The fallopian tube is 5 cm in length and is normal caliber. The mesovarium displays a 2 cm in greatest dimension clear fluid-filled thin-walled cyst. The tube displays a fimbriated end and a pinpoint lumen. RS -2B. Received in formalin labeled right tube and ovary is a 209 g, 2.7 x 1.6 x 0.9 cm ovary with attached pedicle and fallopian tube. The outer surface of the ovary is yellow-regan, smooth and cerebriform. Sectioning shows several clear fluid-filled thin-walled cortical cysts measuring up to 0.4 cm in greatest dimension. The fallopian tube is 11 cm in length and of normal caliber. The mesovarium displays an 8 x 7.3 x 6 cm thin-walled intact cyst filled with clear fluid. Opening shows a cyst wall lining is pink and smooth throughout. The fallopian tube displays a fimbriated and and a pinpoint lumen. RS -2C. Received in formalin labeled cervix and uterus is a 124 g, 9.4 x 6.3 x 4.5 cm uterus with attached cervix. The serosa is pink-red and ranges from smooth to slightly rough. The cervix is 4.3 cm in greatest diameter with a 1 cm slitlike os. The ectocervix is regan-red, smooth, glistening. The endocervix is regan glistening and mildly trabeculated. The transformation zone appears grossly unremarkable. Endometrium is red-regan, smooth, and averages 0.1 cm in thickness. The underlying myometrium is gdb-btgm-swqa, and measures up to 2.1 cm in thickness. There are a few intramural nodules measuring up to 0.4 cm in greatest dimension. All show regan-white whorled cut surfaces. RS -2Block Summary1 -2 cervix and endomyometrium intramural nodules, anterior and posterior cohen respectivelyDictated by JASSON OMALLEY ([facility])MICROSCOPIC DESCRIPTION:Slides reviewed. Pathology ReportsAccession: Collected Date/Time: Received Date/Time: Pathologist:[id number] 05/24/2017 08:52 EST 05/24/2017 10:31 EST DO NEEMA LOREDO EElectronically Signed byPathology Report verified by [facility] HospitalElectronically signed by NEEMA RAMOSign out Date: 05/25/2017 12:48Performing Lab: [facility], [facility] [address] [place] [address] Normal [facility] ([place]) Comment on above: Performed By: #### C BC, ADIFF, ANEU, PRO, GFR, CMP ####[place] [address] CONFERENCE ORGANIZER Rounding Noteon 05-25-20 17 CONFERENCE ORGANIZER Rounding Note Normal [facility] ([place]) Non-Instructor [employer] Cytology Reporton Non-Instructor [employer] Cytology Report . Pathology ReportsAccession: Collected Date/Time: Received Date/Time: Pathologist:[id number] 05/24/2017 08:47 EST 05/24/2017 12:21 EST MD RADHA TRENT Non-Instructor [employer] Cytology ReportCLINICAL INFORMATION:PELVIC MASSDIAGNOSIS:NEGATIVE FOR MALIGNANCYCOMMENT:SCANT CELLULARITYSPECIMEN:PELVIC WASHINGGROSS DESCRIPTION:# of Blocks: 1# of Monolayers: 1Volume (ml) 20 Color: FRESH BLOODY FLUIDElectronically Signed byPathology report verified by [facility] Hospitalcreened by: TAMMY RMElectronically signed by RADHA TRENT MDSign-Out Date: 05/25/2017 08:54Performing Lab: [address] Normal [facility] ([place]) Comment on above: Performed By: #### C BC, ADIFF, ANEU, PRO, GFR, CMP ####[place] [address] Operative Noteon 05-24-2017 Operative Note Normal [facility] ([place]) Procedure Noteon 05-24-2017 Procedure Note Normal [facility] ([place]) History and Physical Pre-Opo n 05-23-2017 History and Physical Pre-Op Normal [facility] ([place]) Main Pretest Recordon 2016 Main Pretest Record Normal [facility] ([place]) .Auto Diffon 05-17-2017 Basophils Auto #/vol (Bld) 0.00 10 3/mcL Normal 0.00-0.27 [facility] ([place]) Comment on above: Performed By: #### C BC, ADIFF, ANEU, PRO, GFR, CMP ####[place] [address] Basophils/100 WBC Auto (Bld) 0.7 % Normal 0.0-2.5 [facility] ([place]) Comment on above: Performed By: #### C BC, ADIFF, ANEU, PRO, GFR, CMP ####[address] [address] Eosinophils 0.10 10 3/mcL Normal 0.00-0.65 [facility] ([place]) Comment on above: Performed By: #### C BC, ADIFF, ANEU, PRO, GFR, CMP ####[address] [address] Eosinophils/100 leukocytes 2.5 % Normal 0.0-6.0 [facility] ([place]) Comment on above: Performed By: #### C BC, ADIFF, ANEU, PRO, GFR, CMP ####[address] [address] Lymphocytes 2.40 10 3/mcL Normal 0.90-4.32 [facility] ([place]) Comment on above: Performed By: #### C BC, ADIFF, ANEU, PRO, GFR, CMP ####[address] [address] Lymphocytes/100 leukocytes 43.3 % High 20.0-40.0 [facility] ([place]) Comment on above: Performed By: #### C BC, ADIFF, ANEU, PRO, GFR, CMP ####[address] [address] Monocytes 0.50 10 3/mcL Normal 0.09-1.40 [facility] ([place]) Comment on above: Performed By: #### C BC, ADIFF, ANEU, PRO, GFR, CMP ####[address] [address] Monocytes/100 leukocytes 9.4 % Normal 2.0-13.0 [facility] ([place]) Comment on above: Performed By: #### C BC, ADIFF, ANEU, PRO, GFR, CMP ####[address] [address] Neutrophils/100 WBC Auto (Bld) 44.1 % Low 50.0-75.0 [facility] ([place]) Comment on above: Performed By: #### C BC, ADIFF, ANEU, PRO, GFR, CMP ####[address] [address] .GFRon 05-17-2017 eGFR (non-black) mL/min/{1.73_m2} Normal [facility] ([place]) Comment on above: Result Comment: GFR Population mean for , Non- Americans Ages 20-29 = 116 mL/min/1.73 sq.m. Ages 30-39 = 107 mL/min/1.73 sq.m. Ages 40-49 = 99 mL/min/1.73 sq.m. Ages 50-59 = 93 mL/min/1.73 sq.m. Ages 60-69 = 85 mL/min/1.73 sq.m. Ages 70+ = 75 mL/min/1.73 sq.m.Chronic Kidney Disease: Less than 60 mL/min/1.73 square metersEnd Stage Renal Disease: Less than 15 mL/min/1.73 square meters Performed By: #### C BC, ADIFF, ANEU, PRO, GFR, CMP ####[address] [address] .NEUABSon 05-17-2017 Neutrophils 2.40 10 3/mcL Normal 2.25-8.10 [facility] ([place]) Comment on above: Performed By: #### C BC, ADIFF, ANEU, PRO, GFR, CMP ####[place] [address] CBCon 05-17-2017 Erythrocyte distribution width Auto Ratio (RBC) 12.8 % Normal 11.5-15.5 [facility] ([place]) Comment on above: Performed By: #### C BC, ADIFF, ANEU, PRO, GFR, CMP ####[place] [address] Erythrocytes (RBC) 3.96 10 6/mcL Low 4.10-5.30 [facility] ([place]) Comment on above: Performed By: #### C BC, ADIFF, ANEU, PRO, GFR, CMP ####[place] [address] Hematocrit (HCT) 37.3 % Normal 34.0-46.0 [facility] ([place]) Comment on above: Performed By: #### C BC, ADIFF, ANEU, PRO, GFR, CMP ####[place] [address] Hemoglobin mass conc (Bld) 13.1 G/dL Normal 12.0-16.0 [facility] ([place]) Comment on above: Performed By: #### C BC, ADIFF, ANEU, PRO, GFR, CMP ####[place] [id number] MCH 33.0 pg Normal 27.0-33.0 [facility] ([place]) Comment on above: Performed By: #### C BC, ADIFF, ANEU, PRO, GFR, CMP ####[place] [address] MCHC mass conc (RBC) 35.1 G/dL Normal 32.0-36.0 [facility] ([place]) Comment on above: Performed By: #### C BC, ADIFF, ANEU, PRO, GFR, CMP ####[place] [address] MCV 94.2 fL Normal 80.0-99.0 [facility] ([place]) Comment on above: Performed By: #### C BC, ADIFF, ANEU, PRO, GFR, CMP ####[place] [address] Platelet mean volume (PMV) 7.4 fL Normal 6.6-10.5 [facility] ([place]) Comment on above: Performed By: #### C BC, ADIFF, ANEU, PRO, GFR, CMP ####[place] [address] Platelets 223 10 3/mcL Normal 150-450 [facility] ([place]) Comment on above: Performed By: #### C BC, ADIFF, ANEU, PRO, GFR, CMP ####[place] [address] WBC (Leukocytes) 5.50 10 3/mcL Normal 4.50-10.80 [facility] ([place]) Comment on above: Performed By: #### C BC, ADIFF, ANEU, PRO, GFR, CMP ####[place] [address] CMPon 05-17-2017 Albumin/Globulin Ratio 1.3 {ratio} Normal 0.9-1.6 [facility] ([place]) Comment on above: Performed By: #### C BC, ADIFF, ANEU, PRO, GFR, CMP ####[place] [address] Alk Phos 51 U/L Normal 38-126 [facility] ([place]) Comment on above: Performed By: #### C BC, ADIFF, ANEU, PRO, GFR, CMP ####[place] [address] Bili Total 0.6 mg/dL Normal 0.2-1.2 [facility] ([place]) Comment on above: Performed By: #### C BC, ADIFF, ANEU, PRO, GFR, CMP ####[place] [address] Globulin 2.9 G/dL Normal 1.5-3.8 [facility] ([place]) Comment on above: Performed By: #### C BC, ADIFF, ANEU, PRO, GFR, CMP ####[place] [address] Protein 6.7 G/dL Normal 6.0-8.5 [facility] ([place]) Comment on above: Performed By: #### C BC, ADIFF, ANEU, PRO, GFR, CMP ####[place] [address] Alanine aminotransferase (ALT) 25 U/L Normal 10-49 [facility] ([place]) Comment on above: Performed By: #### C BC, ADIFF, ANEU, PRO, GFR, CMP ####[place] [address] Albumin 3.8 G/dL Normal 3.2-4.8 [facility] ([place]) Comment on above: Performed By: #### C BC, ADIFF, ANEU, PRO, GFR, CMP ####[place] [address] Aspartate aminotransferase (AST) 15 U/L Normal 8-34 [facility] ([place]) Comment on above: Performed By: #### C BC, ADIFF, ANEU, PRO, GFR, CMP ####[place] [address] BUN/Creatinine Ratio 12.5 ratio Normal 10.0-22.0 [facility] ([place] Comment on above: Performed By: #### C BC, ADIFF, ANEU, PRO, GFR, CMP ####[address] [address] Calcium 8.6 mg/dL Normal 8.4-10.1 [facility] ([place]) Comment on above: Performed By: #### C BC, ADIFF, ANEU, PRO, GFR, CMP ####[place] [address] Chloride 114 mmol/L High 98-110 [facility] ([place]) Comment on above: Performed By: #### C BC, ADIFF, ANEU, PRO, GFR, CMP ####[place] [address] CO2 22 mmol/L Normal 22-32 [facility] ([place]) Comment on above: Performed By: #### C BC, ADIFF, ANEU, PRO, GFR, CMP ####[place] [address] Creatinine 0.96 mg/dL Normal 0.50-1.20 [facility] ([place]) Comment on above: Performed By: #### C BC, ADIFF, ANEU, PRO, GFR, CMP ####[place] [address] Electrolyte Balance 7.0 mEq/L Normal 4.0-15.0 [facility] ([place]) Comment on above: Performed By: #### C BC, ADIFF, ANEU, PRO, GFR, CMP ####[place] [address] Glucose mass conc 88 mg/dL Normal 70-110 [facility] ([place]) Comment on above: Performed By: #### C BC, ADIFF, ANEU, PRO, GFR, CMP ####[place] [address] Potassium molar conc 3.9 mmol/L Normal 3.5-5.0 [facility] ([place]) Comment on above: Performed By: #### C BC, ADIFF, ANEU, PRO, GFR, CMP ####[place] [address] Sodium 143 mmol/L Normal 136-145 [facility] ([place]) Comment on above: Performed By: #### C BC, ADIFF, ANEU, PRO, GFR, CMP ####[place] [address] Urea nitrogen 12.0 mg/dL Normal 8.0-22.0 [facility] ([place]) Comment on above: Performed By: #### C BC, ADIFF, ANEU, PRO, GFR, CMP ####[place] [address] PROon 05-17-2017 INR Coag RelTime (PPP) 0.9 {INR} Normal [facility] ([place]) Comment on above: Result Comment: [employer] (CHEST, 1992, 102:312S-25S)recommended therapeutic range for oral anticoagulant therapy is:LOW RISK: Prophylaxis of venous thrombosis INR: 2.0-3.0 Treatment of pulmonary embolism 2.0-3.0 Prevention of systemic embolism 2.0-3.0HIGH RISK: Mechanical prosthetic valves 2.5-3.5 Performed By: #### C BC, ADIFF, ANEU, PRO, GFR, CMP ####[place] [address] Prothrombin time (PT) Coag time (PPP) 10.9 s Normal 9.0-14.5 [facility] ([place]) Comment on above: Result Comment: Effe ctive 12/25/07, Protime results may be affected by some antibiotics (i.e. Ciprofloxacin, Azithromycin, Bactrim) which may potentiate the action of oral anticoagulants, with further increases in Protime/INR. Performed By: #### C DUNG, OLIVER, ANEU, PRO, GFR, CMP ####[place] [address] TABOon 05-17-2017 ABO/Rh Interp Positive Invalid Interpretation Code [facility] ([place]) Comment on above: Performed By: #### Kelli GREGORY ANTIS ####[place] [address] TABSon 05-17-2017 Antibody Screen Tango Negative Normal [facility] ([place]) Comment on above: Performed By: #### Kelli GREGORY ANTIS ####[place] [address] Vital Signs Date Time Vital Sign Value Performing Clinician Stephani saunders 08-10-2024 09:37-0500 Body temperature 99.1 [degF] Dr. Denise Cheng MD Work Phone: 2(296)[phone] [place] [address] 08-10-2024 09:37-0500 Diastolic blood pressure 60 mm[Hg] Dr. Denise Cheng MD Work Phone: 2(725)650-926459 [address] 08-10-2024 09:37-0500 Heart rate 85 /min Dr. Denise Cheng MD Work Phone: 0(653)542-257309 [place] [address] 08-10-2024 09:37-0500 Respiratory rate 16 /min Dr. Denise Cheng MD Work Phone: 3(401)144-191109 [place] [address] 08-10-2024 09:37-0500 SaO2% (BldA) [Mass fraction] 97 % Dr. Denise Cheng MD Work Phone: 8(454)161-217509 [place] [address] 08-10-2024 09:37-0500 Systolic blood pressure 118 mm[Hg] Dr. Denise Cheng MD Work Phone: 3(492)159-198009 [place] [address] 07-28-2024 12:43-0500 Body height 175.[address] Denise Cheng MD Work Phone: 4(916)045-720409 [place] [address] 07-28-2024 12:43-0500 Body temperature 98.1 [degF] Dr. Denise Cheng MD Work Phone: 1(397)405-243909 [place] [address] 07-28-2024 12:43-0500 Diastolic blood pressure 68 mm[Hg] Dr. Denise Cheng MD Work Phone: 5(202)347-361909 [place] [address] 07-28-2024 12:43-0500 Heart rate 96 /min Dr. Denise Cheng MD Work Phone: 0(205)703-509209 [place] [address] 07-28-2024 12:43-0500 Respiratory rate 12 /min Dr. Denise Cheng MD Work Phone: 5(365)610-593309 [place] [address] 07-28-2024 12:43-0500 SaO2% (BldA) [Mass fraction] 98 % Dr. Denise Cheng MD Work Phone: 9(776)925-935695 [place] [address] 07-28-2024 12:43-0500 Systolic blood pressure 116 mm[Hg] Dr. Denise Cheng MD Work Phone: [facility] 04-03-2023 07:34-0400 SaO2% (BldA) [Mass fraction] 95 % Dr. Denise Cheng Work Phone: [facility] 04-03-2023 07:23-0400 Body height 175.[address] Denise Cheng Work Phone: [facility] 04-03-2023 07:23-0400 Body mass index (BMI) [Ratio] 29.7 kg/m2 Dr. Denise Cheng Work Phone: [facility] 04-03-2023 07:23-0400 Body temperature 98.3 [degF] Dr. Denise Cheng Work Phone: [facility] 04-03-2023 07:23-0400 Body weight 91.[address] Denise Cheng Work Phone: [facility] 04-03-2023 07:23-0400 Diastolic blood pressure 81 mm[Hg] Dr. Denise Cheng Work Phone: [facility] 04-03-2023 07:23-0400 Heart rate 96 /min Dr. Denise Cheng Work Phone: [facility] 04-03-2023 07:23-0400 Respiratory rate 16 /min Dr. Denise Cheng Work Phone: [facility] 04-03-2023 07:23-0400 Systolic blood pressure 120 mm[Hg] Dr. Denise Cheng Work Phone: [facility] 01-20-2022 14:04-0400 Body height 175.[address] Denise Cheng Work Phone: [facility] Work Phone: 01-20-2022 14:02-0400 Body mass index (BMI) [Ratio] 28.7 kg/m2 Dr. Denise Cheng Work Phone: [facility] Work Phone: 01-20-2022 14:02-0400 Body temperature 97.6 [degF] Dr. Denise Cheng Work Phone: [facility] Work Phone: 01-20-2022 14:02-0400 Body weight 88.[address] Denise Cheng Work Phone: [facility] Work Phone: 01-20-2022 14:02-0400 Diastolic blood pressure 76 mm[Hg] Dr. Denise Cheng Work Phone: [facility] Work Phone: 01-20-2022 14:02-0400 Heart rate 91 /min Dr. Denise Cheng Work Phone: [facility] Work Phone: 01-20-2022 14:02-0400 Respiratory rate 16 /min Dr. Denise Cheng Work Phone: [facility] Work Phone: 01-20-2022 14:02-0400 SaO2% (BldA) [Mass fraction] 94 % Dr. Denise Cheng Work Phone: [facility] Work Phone: 01-20-2022 14:02-0400 Systolic blood pressure 121 mm[Hg] Dr. Denise Cheng Work Phone: [facility] Work Phone: 10-21-2021 10:55-0400 Body height 175.[address] Denise Cheng Work Phone: [facility] Work Phone: 10-21-2021 10:55-0400 Body mass index (BMI) [Ratio] 29 kg/m2 Dr. Denise Cheng Work Phone: [facility] Work Phone: 10-21-2021 10:55-0400 Body temperature 97.5 [degF] Dr. Denise Cheng Work Phone: [facility] Work Phone: 10-21-2021 10:55-0400 Body weight 89.[address] Denise Cheng Work Phone: [facility] Work Phone: 10-21-2021 10:55-0400 Diastolic blood pressure 89 mm[Hg] Dr. Denise Cheng Work Phone: [facility] Work Phone: 10-21-2021 10:55-0400 Heart rate 79 /min Dr. Denise Cheng Work Phone: [facility] Work Phone: 10-21-2021 10:55-0400 Respiratory rate 16 /min Dr. Denise Cheng Work Phone: [facility] Work Phone: 10-21-2021 10:55-0400 SaO2% (BldA) [Mass fraction] 98 % Dr. Denise Cheng Work Phone: [facility] Work Phone: 10-21-2021 10:55-0400 Systolic blood pressure 133 mm[Hg] Dr. Denise Cheng Work Phone: [facility] Work Phone: 10-06-2021 14:09-0400 Body mass index (BMI) [Ratio] 29.5 kg/m2 Dr. Denise Cheng Work Phone: [facility] Work Phone: 10-06-2021 14:09-0400 Body temperature 98.4 [degF] Dr. Denise Cheng Work Phone: [facility] Work Phone: 10-06-2021 14:09-0400 Body weight 90.[address] Denise Cheng Work Phone: [facility] Work Phone: 10-06-2021 14:09-0400 Diastolic blood pressure 85 mm[Hg] Dr. Denise Cheng Work Phone: [facility] Work Phone: 10-06-2021 14:09-0400 Heart rate 102 /min Dr. Denise Cheng Work Phone: [facility] Work Phone: 10-06-2021 14:09-0400 Respiratory rate 16 /min Dr. Denise Cheng Work Phone: [facility] Work Phone: 10-06-2021 14:09-0400 SaO2% (BldA) [Mass fraction] 97 % Dr. Denise Cheng Work Phone: [facility] Work Phone: 10-06-2021 14:09-0400 Systolic blood pressure 123 mm[Hg] Dr. Denise Cheng Work Phone: [facility] Work Phone: Encounters Encounter Date Encounter Type Care Provider Facility Start: 11-19-2024 ambulatory Denise Cheng Facility:[facility] Start: 10-31-2024 End: 10-31-[address] Denise Cheng MD Work Phone: [facility] Work Phone: Start: 10-31-2024 End: 10-31-[address] eDnise Cheng MD -Laboratory [place] Work Phone: Start: 10-31-2024 End: 10-31-2024 ambulatory Denise Cheng Facility:[facility] Start: 10-07-2024 Encounter for other preprocedural examination Saul Bazan [facility] Start: 10-01-2024 End: 10-01-2024 Non-patient / Non-visit Dr. Giancarlo Hammer MD -[facility] Work Phone: Start: 10-01-2024 End: 10-01-[address] Denise Cheng MD Work Phone: [facility] Work Phone: Start: 10-01-2024 End: 10-01-[address] Saul Bazan DO -Pulmonary Services/Neurology Work Phone: Start: 10-01-2024 End: 10-01-2024 ambulatory Denise Cheng Facility:[facility] Start: 09-03-2024 End: 09-03-[address] Denise Cheng MD Work Phone: [facility] Work Phone: Start: 09-03-2024 End: 09-03-[address] Denise Cheng MD -Outpatient [facility] Work Phone: Start: 09-03-2024 End: 09-03-2024 ambulatory Denise Cheng Facility:[facility] Start: 08-10-2024 End: 08-10-2024 Patient encounter procedure Farida Barrios [employer] [employer] [facility] Work Phone: Start: 08-10-2024 End: 08-10-2024 ambulatory Denise Cheng [place] Start: 07-29-2024 End: 07-29-2024 Patient encounter procedure Adilson oCrdova [employer]EARCH ANIMAL ATTENDANT-C -Laboratory, [facility] Work Phone: Start: 07-28-2024 End: 07-28-2024 Patient encounter procedure Adilson Cordova [employer]EARCH ANIMAL ATTENDANT-[facility] Work Phone: Start: 07-28-2024 End: 07-29-2024 ambulatory Denise Cheng Facility:[facility] Start: 04-15-2024 End: 04-15-2024 ambulatory Ashutosh OMALLEY [place] Start: 01-25-2024 End: 01-25-2024 ambulatory Denise Cheng Facility:[facility] Start: 11-29-2023 End: 11-29-2023 ambulatory Denise Cheng Facility:[facility] Start: 08-15-2023 End: 08-15-2023 ambulatory [facility] Work Phone: Start: 08-15-2023 End: 08-15-2023 Patient encounter procedure [facility]-Outpatient Breast Imaging Work Phone: Start: 06-20-2023 End: 06-20-2023 ambulatory [facility] Work Phone: Start: 06-20-2023 End: 06-20-2023 Discharged Recurring [facility]-Physical Therapy Work Phone: Start: 06-20-2023 Registered Recurring [facility]-Physical Therapy Work Phone: Start: 06-14-[address] Denise Cheng Work Phone: [facility]-Physical Therapy Work Phone: Start: 06-09-2023 End: 06-09-[address] Denise Cheng Work Phone: [facility] Work Phone: Start: 06-09-2023 End: 06-09-[address] Denise Cheng Work Phone: [facility]-Laboratory, [place] Work Phone: Start: 05-16-2023 End: 05-16-[address] Denise Cheng Work Phone: [facility]-Radiology, [place] Work Phone: Start: 04-03-2023 End: 04-03-[address] Denise Cheng Work Phone: [facility] Work Phone: Start: 02-01-2023 End: 02-01-2023 ambulatory [facility] Facility:[facility] Start: 02-01-2023 End: 02-01-2023 Subsequent hospital visit by physician [facility] Work Phone: Radiology Comment on above: Plantar fascial fibr omatosis [M72.2] Start: 01-12-2023 End: 01-12-2023 ambulatory [facility] Work Phone: Start: 01-12-2023 End: 01-12-2023 Patient encounter procedure [facility], [facility] Work Phone: Start: 11-12-2022 End: 11-12-2022 ambulatory [facility] Work Phone: Start: 11-12-2022 End: 11-12-2022 Patient encounter procedure [facility]-MRI - [facility] Start: 11-09-2022 End: 11-09-2022 ambulatory [facility] Work Phone: Start: 11-09-2022 End: 11-09-2022 Patient encounter procedure [facility]-Laboratory, [place] Start: 10-27-2022 End: 10-27-2022 Discharged Recurring [facility]-Physical Therapy Start: 09-22-2022 End: 09-22-2022 ambulatory [facility] Work Phone: Start: 09-22-2022 End: 09-22-2022 [facility] Start: 03-24-2022 End: 03-24-[address] Denise Cheng Work Phone: [facility] Work Phone: Start: 03-24-2022 End: 03-24-[address] Denise Cheng Work Phone: [facility]-Outpatient Breast Imaging Start: 01-20-2022 End: 01-20-[address] Denise Cheng Work Phone: [facility] Start: 01-13-2022 End: 01-13-[address] Denise Cheng Work Phone: [facility]-Ultrasound, [facility] Start: 10-21-2021 End: 10-21-[address] Denise Cheng Work Phone: [facility] Start: 10-19-2021 End: 10-19-[address] Denise Cheng Work Phone: [facility]-Cat Scan, [facility] Start: 10-06-[address] Denise Cheng Work Phone: [facility] Start: 10-06-2021 End: 10-06-[address] Denise Cheng Work Phone: [facility] Start: 09-09-2021 End: 09-09-[address] [facility] Start: 08-03-2021 End: 08-03-[address] Denise Cheng Work Phone: [facility] Start: 08-02-2021 End: 08-02-[address] Denise Cheng [facility] Start: 07-26-2021 End: 07-26-[address] Denise Cheng [facility] Start: 06-02-2017 End: 06-05-2017 Evaluation and management of inpatient LAMAR CARMEN Facility:A Start: 05-24-2017 End: 05-26-2017 Evaluation and management of inpatient LAMAR CARMEN Facility:A Start: 05-17-2017 End: 05-18-2017 Ambulatory [facility] CARMEN Facility:[facility] Procedures Date Procedure Procedure Detail Performing Clinician Start: 10-31-[address] Martha Cheng MD Work Phone: Comment on above: Performed at: [address] [id number] Director: Dominick De La Rosa PhD, Phone: [phone] Start: 09-03-2024 Screening mammography Gale Cheng MD Work Phone: Start: 07-29-[address] Denise Cheng MD Work Phone: Start: 08-15-2023 Screening mammography Start: 05-16-2023 Radiologic examinati on of knee Dr. Denise Cheng Work Phone: Start: 05-16-2023 Plain x-ray of pelvi s and lower extremity Dr. Denise Cheng Work Phone: Start: 02-01-2023 Radex foot complete minimum 3 views Jared Bernard Work Phone: Start: 01-12-2023 Ultrasonography of abdomen Start: 11-12-2022 MRI of lumbar spine Start: 09-22-2022 Complete x-ray serie s of lumbar spine with bending views Start: 03-24-2022 Screening mammography Gale Cheng Work Phone: Start: 01-13-2022 US scan of spleen Dr. Carla Cheng Work Phone: Start: 10-19-2021 CT of chest and abdomen Dr. Denise Cheng Work Phone: Start: 09-09-[address] Denise Cheng Work Phone: Start: 08-03-[address] Denise Cheng Work Phone: Start: 08-02-2021 Radiologic examinati on of knee Dr. Denise Cheng Work Phone: Start: 10-03-2018 Colonoscopy [facility] Work Phone: Plan of Treatment Date Care Activity Detail Author Start: 01-20-2030 Urine microalbumin profile DTa P,Tdap,Td Vaccine (2 - Td or Tdap) [facility] Start: 02-10-2023 Covid-19 Vaccine ( season) Covid-19 Vaccine ( season) [facility] Start: 02-10-2023 Influenza vaccination Influenza Vacc ine (#1) [facility] Start: 06-12-2022 Depression Assessment Depression Ass essment [facility] Start: 10-04-2019 Colonoscopy Colonoscopy [facility] Start: 10-04-2019 Colorectal Cancer Screening Colorectal Cancer Screening [facility] Start: 10-31-2015 Shingrix Vaccine (1 of 2) Shingrix V accine (1 of 2) [facility] Start: 2010 Cologuard (FIT-DNA) Cologuard (FIT-D NA) [facility] Start: [address] [facility] Start: 2010 Diabetes Screening Diabetes Screenin g [facility] Start: 2010 Fecal Occult Blood Fecal Occult Bloo d [facility] Start: 2010 Lipid 1996 panel - S zeyad or Plasma Lipid Screening [facility] Start: 2010 Sigmoidoscopy Sigmoidoscopy [facility] Start: 04-20-2010 HPV Testing HPV Testing [facility] Start: 04-20-2010 Pap Testing Pap Testing [facility] Start: 2005 Mammography Mammogram Screening [facility] Start: 10-31-1983 Hepatitis C Screening Hepatitis C Sc reening [facility] Start: 10-31-1983 HIV Screening HIV Screening [facility] Start: 1965 Hepatitis B Vaccine (1 of 3 - 3-dose series) Hepatitis B Vaccine (1 of 3 - 3-dose series) [facility] Immunizations Immunization Date Immunization Notes Care Provider Fa [facility] 03-08-2022 influenza virus vaccine, unspecified formulation [facility] Work Phone: [facility] 01-21-2020 tetanus toxoid, redu rima diphtheria toxoid, and acellular pertussis vaccine, adsorbed [facility] Work Phone: [facility] Work Phone: Payers Date Payer Category Payer Self-pay [id number] 2022 Unknown [employer] PPO [id number] 2022-Present [phone] [facility] [id number] [place] [address] PPO [id number] 2017 Unknown [id number] 2017 Unknown [id number] 2013 Unknown [id number] Unknown [id number] Unknown [id number] Unknown [id number] Unknown [id number] Unknown [id number] Unknown [id number] Unknown [id number] Unknown [id number] Unknown [id number] Unknown [id number] Unknown [id number] Unknown [id number] Unknown [id number] Unknown [id number] Social History Date Type Detail Facility Start: 10-06-2021 End: 04-03-2023 Tobacco smoking status ALIS Unknown if ever smoked [facility] Start: 12-05-[address] [facility] Start: 1965 Sex Assigned At Female [facility] Start: 07-25-2017 End: 07-28-2024 Tobacco smoking status ALIS Never smoked tobacco [facility] Start: 07-25-2017 Tobacco use and exposure Smokeless tobacco non-user [facility] Start: 02-01-2023 Alcohol intake Current drinke r of alcohol (finding) [facility] Start: 02-01-2023 History of Social function [facility] Start: 02-01-2023 Tobacco use panel [facility] National Score (1-100), lower number is lower risk 65 [facility] Start: 1965 Sex Assigned At Not on file [facility] Start: 09-09-2024 End: 10-04-2024 Sex Female (finding) [facility] Goals Date Patient Goal Desired Activity /State Clinical Notes 02-01-2023 to 07-28-2024 Note Date & Type Note Facility 07-28-2024 Evaluation note Diagnosis Onset Date Resolution Urinary tract infection noneactive July 28, 12:44pm Viral URI with cough acute Vineet h 2024 9:22am [facility] Work Phone: 1(386) 787-233404-05-2024 Discharge summary Author Ricardo Salvador [facility] September 15, 2023 8:26am Note Date/Time September 15, 2023 8:26 am [facility] Physical Therapy [facility] [address] [place] [address] [address] [place] [address] / REHABILITATION SERVICES DISCHARGE SUMMARY MR#: [id number] Acct: [id number] Name: YUMIKO SINGH Rep #: [id number] : 1965 57 From: Ricardo KIRBY T Referring Dr.: Dr. Denise Cheng MD Status: REG R Insurance: [facility] SELF PAY INSURANCE Patient Information Patient Information: YUMIKO SINGH was seen in my office for initial evaluation on 05/18/23. The following Plan of Care was established for this patient: POC Established Initial Frequency: 2x /Week Initial Duration: 6 Weeks Anticipated Interventions Patient/Client Instruction: Educate patient on: Condition, Plan of Care, Risk Factors and Benefits of Fitness Program For the Purpose of:: To facilitate caregiver knowledge, To improve self management, To prevent re-injury, To improve ability to perform tasks related tolife management and To improve tolerance to ADL's Therapeutic Exercise to Include: Strength training, Power training, Endurance training, Body mechanics, Postural training, Flexibilty training, Gait and locomotor training, Passive ROM, Active ROM, Dynamic Lumbar Stabilization and Joy Exercises For the Purpose of:: To decrease pain, To increase ROM, To improve nutrient delivery to tissue, To increase oxygenation perfusion, To improve muscle performance and motor function, To improve ability to perform ADL's, To increasetolerance to activity/condition/position, To improve gait and locomotor functions, To improve health of tissue, To decrease soft tissue restriction and To increase flexibility/ROM Ultrasound (thermal/non thermal): Yes For the Purpose of:: To decrease pain, To decrease swelling/inflammation, To increase ROM and To improve nutrient delivery to tissue Last Seen Last Seen: This patient was last seen in our office 06/20/23. Pertinent comments regardingtheir Physical therapy will appear below: Pt. was seen in the pool for her R knee, R hip pain in the aquatic setting. At her last visit she reported that she was not having much further improvement andwas going back to see her physician. Pt. has not been seen in several months andwill be DC from PT at this point in time. At this point I will be discontinuing this patient from physical therapy. I would be happy to see this patient again in the future if found appropriate by the physician. Thank you! Ricardo Salvador, DPT Balance/Gait/Functional tests Balance/Special Test Scores Lower Extremity Functional Score: 40 <Electronically signed by Ricardo Salvador DPT> 09/15/23 0826 CC: Dr. Denise Cheng MD ~ CLS Signed [facility] Work Phone: 1(885) 721-876408-23-2023 NoteHNO ID: [id number] Author: Sherlyn Garcia RN Service: ? Author Type: ? Type: Progress Notes Filed: 02/01/2023 11:01 PM Note Text: Per Dr. Bernard, Yumiko was provided with a pair of full length original Power Step inserts, size 12, and instructed/educated in its application, wear, and care. All questions were answered, and patient was able to demonstrate competence with the necessary skills to utilize the above equipment. Sherlyn Garcia [facility]NM[facility]08-23-2023 NoteHNO ID: [id number] Author: Jared Bernard Service: ? Author Type: Physician Type: Progress [...] mood. Does not a (more content not included)...[facility] 02-01-2023 NoteHNO ID: [id number] Author: Sherlyn Garcia RN Service: ? Author [...] under her toes. XR completed today to review.[facility]-2023 NoteHNO ID: [id number] Author: Estrellita Hoyt RT(Art) Service: Radiology Author Type: Technologist Type: Progress [...] BY: RT Rivas(R) February 01, 2023 1:39 [facility]08-23-2023 History of Present illness Narrative* Estrellita Hoyt RT(R) - 02/01/2023 1:40 PM EDT Radiology Service Progress Note PATIENT NAME: Yumiko Singh DATE OF SERVICE: February 01, 2023 TIME: 1:39 PM PATIENT IDENTITY VERIFICATION COMPLETED USING TWO (2) IDENTIFIERS: Name and Date of confirmedby patient verbally. FALL SCREENING: Has the patient had 2 falls in the last year or 1 fall with injury or currently using an Ambulatory Assistive Device (Walker, Cane, Wheelchair, Crutches, etc.)? No PATIENT GENDER DATA: Female. status: : No status: NO. PATIENT RELEVANT IMPLANT DATA REVIEWED: Not Applicable RADIOLOGY DEPARTMENT: General X-ray: Exam(s) Completed: Lower Extremity X- Ray(s): Foot, Bilateral and Wt. Bearing PERIPHERAL IV DATA: Not applicable SIGNED BY: RT Rivas(R) February 01, 2023 1:39 PM [facility]* Diagnosis Onset Date Resolution Status Easy bruising chronic Splenomegaly chronic Easy bruising chronic Splenomegaly chronic [facility] Work Phone: Evaluation note* Diagnosis Onset Date Resolution Status Splenomegaly chronic [facility] Work Phone: Evaluation noteNo assessment information available [facility] Work Phone: Evaluation note* Diagnosis Plantar fascial fibromatosis documented in this encounter [facility] note* Diagnosis Onset Date Resolution Status Acute sinusitis, unspecified acute Contact with or exposure to other viral diseases acute [facility] Work Phone: Reason for referral (narrative)* Diagnostic Procedure Only (Routine) - Closed Specialty Diagnoses / Procedures Referred By Contzelda t Referred To Contact XR IMAGING Diagnoses Plantar fascial fibromatosis Procedures XR FOOT GENERAL 3V AP/LAT/OBL BILATERAL RADEX FOOT COMPLETE MINIMUM 3 VIEWS Jared Bernard [address] [place] [address] [place] [address] Referral ID Status Reason Start Date Expiration Date V isits Requested Visits Authorized [id number] Closed Auto-Generate d Referral 01/30/2023 02/29/2024 1 [facility]No reason for referral information availableWFairfield [facility] Work Phone: Reason for visit Narrative* Diagnostic Procedure Only (Routine) - Closed Specialty Diagnoses / Procedures Referred By Contac t Referred To Contact XR IMAGING Diagnoses Plantar fascial fibromatosis Procedures XR FOOT GENERAL 3V AP/LAT/OBL BILATERAL RADEX FOOT COMPLETE MINIMUM 3 VIEWS Jared Bernard [address] [place] [address] [place] [address] Referral ID Status Reason Start Date Expiration Date V isits Requested Visits Authorized [id number] Closed Auto-Generate d Referral 01/30/2023 02/29/2024 1 1 [facility] Summary Purpose Family History No Family History Records FoundNo Family History Records FoundNo Family History Records Found Advance Directives No Advanced Directives Records Found Advance Directive Response Recorded Date/ Time Living Will No December 05, 2019 11:10am Power of Child Development Teacher No December 04 0 11:10am Advance Directive Response Recorded Date/ Time Living Will No December 05, 2019 10:10am Power of Child Development Teacher No December 04 0 10:10am Chief Complaint and Reason for Visit Chief Complaint E ORDER EORDER ABD PAIN FATTY LIVER NEW-SPLENOMEGALY MED ONC SPLENOMEGALY REVIEW CT RESULTS Reason for Visit Easy bruising Splenomegaly Easy bruising Splenomegaly Chief Complaint Splenomegaly, not el sewhere classified 3 MO - LABS AND U/S 1 WK PRIOR SCREENING Reason for Visit Splenomegaly Chief Complaint Spondylolisthesis, s ite unspecified Chief Complaint Spondylolisthesis, s ite unspecified L GLUTEAL PAIN, L SI PAIN, L2-4 SPONDYL. RX HERE EORDER SPONDYLOLISTHESIS, LUMBOSACRAL REGION Chief Complaint Spondylolisthesis, s ite unspecified L GLUTEAL PAIN, L SI PAIN, L2-4 SPONDYL. RX HERE EORDER SPONDYLOLISTHESIS, LUMBOSACRAL REGION MONITOR SPLEEN , e orders labs Chief Complaint COUGH , SORE THROAT, FEVER, BODY ACHE R posterrior and medial leg pain in groing/buttock EORDER RT KNEE PAIN MILD PES TENDERNESS / RX HERE Reason for Visit Acute sinusitis, uns pecified Contact with or exposure to other viral diseases Chief Complaint R posterrior and med ial leg pain in groing/buttock EORDER RT KNEE PAIN MILD PES TENDERNESS / RX HERE SCREENING Chief Complaint EORDER RT KNEE PAIN MILD PES TENDERNESS / RX HERE SCREENING Chief Complaint Admit Date Urinary tract infection July 28 12:44pm COUGH/ST/FEVER/CONGESTION August 10 9:22am SCREENING September 03, 2024 7:0 5am Reason for Visit Admit Date Urinary tract infection July 28 12:44pm Viral URI with cough August 10, 2024 9:2 2am Chief Complaint Admit Date Urinary tract infection July 28 12:44pm COUGH/ST/FEVER/CONGESTION August 10 9:22am SCREENING September 03, 2024 7:0 5am PRE OP October 01, 2024 7:1 3am Chief Complaint Admit Date Urinary tract infection July 28 12:44pm COUGH/ST/FEVER/CONGESTION August 10 9:22am SCREENING September 03, 2024 7:0 5am PRE OP October 01, 2024 7:1 3am PRE OP October 01, 2024 7:2 3am Additional Source Comments INFORMATION SOURCE (unrecogn ized section and content) DATE CREATED AUTHOR 12/04/2017 [facility] [place] [facility] DATE CREATED AUTHOR AUTHOR'S ORGANIZ ATION 02/05/2023 [facility] DATE CREATED AUTHOR AUTHOR'S ORGANIZ ATION 11/16/2024 [facility] Care Teams (unrecognized sec tion and content) Team Status: Active Member Role Status Dates Dr. Denise Cheng MD Family Provider Active Dr. Denise Cheng MD Primary Care Provider Active Team Status: Inactive Member Role Status Dates Dr. Denise Cheng MD Primary Care Provide r, Attending Provider, Referring Provider Active Team Status: Active Member Role Status Dates Dr. Denise Cheng MD Primary Care Provide r, Attending Provider, Referring Provider Active Team Status: Inactive Member Role Status Dates Dr. Denise Cheng MD Primary Care Provider Active Dr. Cecilio Lopez MD Attending Provider, Referrin g Provider Active [employer] Network Architect Relationship Specialty Start Date End Date Denise Cheng MD PCP - General Family Medicine 06/27/13 Team Status: Inactive Member Role Status Dates Dr. Denise Cheng MD Primary Care Provider, Referring P rovider Active Ashutosh Escalona PA, PA Attending Provider Active Team Status: Active Member Role Status Dates Dr. Denise Cheng MD Primary Care Provider, Attending P rovider Active Team Status: Inactive Member Role Status Dates Dr. Denise Cheng MD Primary Care Provider Active DAIN HarrisC Attending Provider, Referr ing Provider Active Team Status: Inactive Member Role Status Dates Dr. Denise Cheng MD Primary Care Provider, Attending P rolee Active Team Status: Active Member Role Status Dates Dr. Denise Cheng MD Primary Care Provider Active Team Status: Inactive Member Role Status Dates Dr. Denise Cheng MD Primary Care Provider Active Start: July 28, 2024 End: July 28, 2024 Dr. Denise Cheng MD Referring Provider Active St art: July 28, 2024 End: July 28, 2024 Adilson Cordova NP, RESEARCH ANIMAL ATTENDANT-C Attending Provider Active S tart: July 28, 2024 End: July 28, 2024 Team Status: Inactive Member Role Status Dates Dr. Denise Cheng MD Primary Care Provider Active Start: July 29, 2024 End: July 29, 2024 Adilson Cordova NP, RESEARCH ANIMAL ATTENDANT-C Attending Provider Active S tart: July 29, 2024 End: July 29, 2024 Team Status: Inactive Member Role Status Dates Dr. Denise Cheng MD Primary Care Provider Active Start: August 10, 2024 End: August 10, 2024 Dr. Denise Cheng MD Referring Provider Active St art: August 10, 2024 End: August 10, 2024 ILENE Jerez Attending Provider Active Start: August 10, 2024 End: August 10, 2024 Team Status: Inactive Member Role Status Dates Dr. Denise Cheng MD Primary Care Provider Active Start: September 03, 2024 End: September 03, 2024 Dr. Denise Cheng MD Attending Provider Active St art: September 03, 2024 End: September 03, 2024 Dr. Denise Cheng MD Referring Provider Active St art: September 03, 2024 End: September 03, 2024 Team Status: Inactive Member Role Status Dates Dr. Denise Cheng MD Primary Care Provider Active Start: October 01, 2024 End: October 01, 2024 Dr. Saul Bazan DO Attending Provider Active Start: October 01, 2024 End: October 01, 2024 Dr. Saul Bazan DO Referring Provider Active Start: October 01, 2024 End: October 01, 2024 Team Status: Active Member Role Status Dates Dr. Denise Cheng MD Primary Care Provider Active Start: October 01, 2024 End: October 01, 2024 Dr. Giancarlo Hammer MD Attending Provider Active S tart: October 01, 2024 End: October 01, 2024 Dr. Saul Bazan DO Referring Provider Active Start: October 01, 2024 End: October 01, 2024 Team Status: Inactive Member Role Status Dates Dr. Denise Cheng MD Primary Care Provider Active Start: October 31, 2024 End: October 31, 2024 Dr. Denise Cheng MD Attending Provider Active St art: October 31, 2024 End: October 31, 2024 Dr. Denise Cheng MD Referring Provider Active St art: October 31, 2024 End: October 31, 2024 Source Comments (unrecognize d section and content) In the event this informatio n is protected by the Federal Confidentiality of Alcohol and Drug Abuse Patient Records regulations: The Federal rules restrict any use of the information to criminally investigate or prosecute any alcohol or drug abuse patient.[facility] FOR RECORDS PERTAINING TO PATIENTS WHO ARE [...] BE BASED ON THE PRIMARY CLINICAL RECORDS. [employer] [facility]. provides no warranty or guarantee of the accuracy or completeness of information in this document.
--- NOTE | 2024-11-17 17:54 | EKG12_ITS ---
Test Reason : CP Blood Pressure : */* mmHG Vent. Rate : 92 BPM Atrial Rate : 92 BPM P-R Int : 136 ms QRS Dur : 80 ms QT Int : 362 ms P-R-T Axes : 41 9 65 degrees QTcB Int : 447 ms Normal sinus rhythm Normal ECG Confirmed by Sean Smallwood ([id number]), deputy editor in chief CANDE WARREN ([id number]) on 11/19/2024 6:16:27 AM Referred By: BB Confirmed By: Sean Smallwood
--- NOTE | 2024-11-17 18:03 | ED.VIS.CHEST ---
HPI History of Present Illness Chief Complaint: Chest Pain Informant: patient Narrative Narrative: Patient is a 59-year-old female presenting with sudden onset of chest pain that started approximate 2 hours prior to arrival. She has this pain underneath her left rib/breast. Is up to her neck into her trapezius area. She states she was riding in the car when it started. She never any like this before. Pain is worse with movement as well as deep breathing. Denies any swelling of her legs. Did not take any for her pain prior to arrival. Denies any cardiac or pulmonary history. Denies history of DVT. Notes this year she has had an unintentional 20 pound weight loss but denies any abdominal pain. She notes that her primary care doctor did recently order her an outpatient ultrasound which she thinks was to look at her gallbladder but she has not had that done yet. She denies any change in her pain with eating. She denies any urinary symptoms. No associated nausea or vomiting. Came in for further evaluation. She states that she is supposed to have meniscus repair surgery on her knee this coming Monday. [facility] Medical History (Updated 11/17/24 @ 22:[address] Natalia Felix, DO) ADHD Anxiety and depression Hx of migraines Splenomegaly Easy bruising Arthritis Home Medications ?Medication ?Instructions ?Recorded ?Last Taken ?Type methylphenidate HCl 27 mg 27 mg PO DAILY ADD 10/01/18 Unknown History tablet,extended release 24 hr trazodone 100 mg tablet 100 mg PO QHS 10/01/18 Unknown History erenumab-aooe 140 mg/mL 140 mg SQ QMONTH 12/05/19 Unknown History subcutaneous auto-injector ascorbate calcium (vitamin C) 500 500 mg PO DAILY 09/28/21 Unknown History mg tablet vitamin with calcium ea PO 09/28/21 Unknown History no.72-iron 27 mg-folic acid 1 mg tablet duloxetine 40 mg capsule,delayed 40 mg PO DAILY 10/06/21 Unknown History release magnesium oxide 500 mg capsule 1,000 mg PO DAILY 10/06/21 Unknown History vitamin B complex 1 tab PO DAILY 10/06/21 Unknown History rizatriptan 10 mg tablet 10 mg PO .COMPLEX PRN 01/27/23 Unknown History lansoprazole 15 mg capsule,delayed 20 mg PO DAILY 11/17/24 Unknown History release (Prevacid 24Hr) Allergy/AdvReac Type Severity Reaction Status Date / Time amoxicillin Allergy Hives Verified 11/17/24 16:43 Sulfa (Sulfonamide Allergy Hives Verified 11/17/24 16:43 Antibiotics) zolmitriptan (From Zomig) Allergy ; Verified 11/17/24 16:43 verapamil AdvReac lightheaded Verified 11/17/24 16:43 dizzy Surgical History History of hysterectomy History of umbilical hernia repair H/O section History of carpal tunnel repair Hx of tonsillectomy Social History household members: family Smoking Status: Never smoker alcohol intake: current alcohol intake frequency: holidays/special occasions only Alcohol type: wine substance use type: does not use caffeine: No what type of physical activity do you participate in: none seatbelt use: always do you feel safe at home: Yes ROS ROS ED Constitutional Constitutional ED: Denies chills or fever(s) Cardiovascular Cardiovascular: Reports as per HPI and chest pain Respiratory/Chest Respiratory/Chest: Reports dyspnea; Denies cough Gastrointestinal Gastrointestinal: Denies diarrhea, nausea or vomiting Musculoskeletal Musculoskeletal: Reports back pain and neck pain Integumentary Denies rash Neurologic Neurologic: Denies paresthesias or weakness Psychiatric Psychiatric: Reports anxiety Hematologic/Lymphatic Hematologic/Lymphatic: Denies easy bleeding or easy bruising EXAM Physical Exam Const Vital Signs: 11/17/24 16:43 11/17/24 16:45 11/17/24 17:43 Temperature 98.2 F Temperature Source Oral Pulse Rate 92 88 Respiratory Rate 22 H 16 Respiratory Effort Short of Breath Blood Pressure 152/93 H 132/94 H Blood Pressure Mean 112 106 Pulse Ox 97 98 Oxygen Delivery Method Room Air 11/17/24 17:54 11/17/24 18:00 11/17/24 19:00 Temperature Temperature Source Pulse Rate 82 79 Respiratory Rate 16 15 Respiratory Effort Blood Pressure 117/83 H 113/81 H Blood Pressure Mean 94 91 Pulse Ox 97 94 Oxygen Delivery Method Room Air Room Air Room Air 11/17/24 20:00 11/17/24 20:25 11/17/24 21:00 Temperature Temperature Source Pulse Rate 86 93 83 Respiratory Rate 18 17 Respiratory Effort Blood Pressure 118/81 H 120/81 H 109/80 Blood Pressure Mean 93 89 Pulse Ox 93 92 Oxygen Delivery Method Room Air Room Air 11/17/24 22:00 Temperature Temperature Source Pulse Rate 79 Respiratory Rate 16 Respiratory Effort Blood Pressure 110/73 Blood Pressure Mean 85 Pulse Ox 95 Oxygen Delivery Method Room Air Positive well nourished and well developed General Appearance ED: well developed and NAD HEENT Reports moist mucous membranes normocephalic and atraumatic Eyes PERRL Neck supple and no JVD Neck Narrative: Mild left lateral neck tenderness to palpation Chest Wall inspection of chest normal Chest Narrative: No significant reproducible chest wall tenderness. No chest wall crepitus. Resp Resp Narrative: Mildly tachypneic with shallow respirations. Slightly diminished breath sounds at the bases. Auscultation: Negative for rhonchi or wheezes Cardio regular rate, regular rhythm and no murmurs Cardio Narrative: 2+ radial DP pulses present GI normal to inspection, nondistended, normoactive bowel sounds, soft to palpation and non-tender GI Narrative: Negative Whitlock sign. Extremity normal to inspection General Extremety ED: Negative for edema General Extremity: Negative for edema Neuro oriented x3 Sensorium / Orientation: awake and alert Motor Exam: Negative for general weakness Psych mental status grossly normal Mood & Affect: anxious Skin no rashes or lesions noted and no wounds Heart Score History: Slightly/Non-Suspicious ECG: Normal Age: >45 - <65 years Risk Factors: 1 or 2 Risk Factors Troponin: >/=3 x Normal Limit Score: 4 MDM MDM MDM Narrative Medical decision making narrative: Patient evaluated for sudden onset of left-sided chest pain that radiates to her neck and down to her back. She does have some muscle skeletal tenderness of the left trapezius but she says this does not reproduce her chest pain. She denies any physical injuries that could have triggered her pain. Differential includes ACS, pulmonary embolism, pericarditis, myocarditis, pleural effusion, pneumothorax and less likely referred abdominal pain. Patient has a benign abdominal exam with no tenderness to lower suspicion for this. Workup shows a normal CBC. D-dimer is normal at 0.30. CMP unremarkable, she has a very mild transaminitis but this is nonspecific. Initial high-sensitivity troponin was delayed but it was elevated at 76. Repeat EKG is obtained as should her chest pain is returning after receiving initial morphine and I am having a hard time treating the chest pain. She does not have any dynamic EKG changes. Initially feel this could be more muscle skeletal and she was given Flexeril with some improvement however her pain came back. She was given trial of nitroglycerin but after her second dose she started to have increased pain and became more tachycardic. She has more shallow respirations. Carefully explained her pain and CTAs added onto ensure that there is no subtle PE or pneumonia that is causing her pain despite having a normal chest x-ray. CTA of the chest shows ectasia of the main pulmonary artery and enlargement of the distal pulmonary arteries which could be seen in pulmonary hypertension as well as trace left pleural effusions. Patient's pain is returning and she is given Ativan. She is also given IV fluids. Patient had some improvement but pain returns given aspirin and fentanyl. Will be admitted to hospitalist for further cardiac workup given her elevated troponin and unexplained chest pain. Given that her troponin is downtrending do not think she requires heparin drip or emergent cardiology consults especially she does not have acute EKG changes. Lab Data Labs: Laboratory Results - last 24 hr 11/17/24 11/17/24 16:45 18:45 WBC 7.4 RBC 4.38 Hgb 13.9 Hct 41.6 MCV 95.0 MCH 31.7 MCHC 33.4 RDW Std Deviation 44.7 H RDW Coeff of Maged 12.9 Plt Count 308 MPV 9.3 Immature Gran % (Auto) 0.100 Neut % (Auto) 40.4 L Lymph % (Auto) 46.6 H [place] % (Auto) 10.2 H Eos % (Auto) 2.0 Baso % (Auto) 0.7 Absolute Neuts (auto) 3.0 Absolute Lymphs (auto) 3.43 Nucleated RBC % 0 D-Dimer Quant (PE/DVT) 0.30 Sodium 142 Potassium 4.0 Chloride 104 Carbon Dioxide 26.2 Anion Gap 12 BUN 14 Creatinine 0.81 Estim Creat Clear Calc 78.15 Est GFR (MDRD) Non-Af 84 BUN/Creatinine Ratio 16.7 Glucose 130 H Calcium 9.6 Total Bilirubin 0.58 Direct Bilirubin 0.20 AST 37 H ALT 44 H Alkaline Phosphatase 68 Troponin T High Sens 76 H* Troponin T Hi Sens 2 Hr 69 H* Total Protein 7.5 Albumin 4.5 Globulin 3.0 Lipase 40 Radiography Chest X-Ray - ED: 2 View, Read by ED Physician, Read by Radiologist and No Acute Disease Diagnostic Testing: Clinical Impression(s) from Imaging Studies Chest X-Ray 11/17/24 19:18 IMPRESSION: NO ACUTE FINDINGS. Reading Location: [facility] Chest CTA 11/17/24 20:36 IMPRESSION: 1. No acute pulmonary embolism. 2. Ectasia of the main pulmonary artery and enlargement of the distal pulmonary arteries, which can be seen with pulmonary hypertension. 3. Trace left pleural effusion. Reading Location: [facility] Rhythm Strip Rhythm Strip: Sinus Rhythm Rate: 92 Ectopy: None EKG Initial EKG: Attestation: I personally reviewed and interpreted this EKG as follows: Interpretation: Sinus Rhythm Comments: Normal sinus rhythm rate of 92 bpm Normal axis Normal intervals Normal ST segments Prior EKG tracings: available for review Prior: Unchanged Follow-up EKG: Attestation: I personally reviewed and interpreted this EKG as follows: Interpretation: Sinus Rhythm Comments: Normal sinus rhythm at a rate of 87 bpm Normal axis Normal intervals Normal ST segments No change from the prior EKG Management Discussion w/another healthcare provider: Hospitalist Discharge Plan Triage Chief Complaint: Chest Pain ED Provider: Natalia Felix Dx/Rx/DC Orders Clinical Impression: Chest pain, Elevated troponin Prescriptions: No Action ascorbate calcium (vitamin C) 500 mg tablet 500 mg PO DAILY Vitamin Plus Low Iron 27 mg iron- 1 mg tablet PO Patient Comments: TAKE 1 TABLET BY MOUTH EVERY DAY DO NOT TAKE AT SAME TIME FERROUS GLUCONATE duloxetine 40 mg capsule,delayed release(DR/EC) 40 mg PO DAILY magnesium oxide 500 mg capsule 1,000 mg PO DAILY vitamin B complex Tablet 1 tab PO DAILY rizatriptan 10 mg tablet 10 mg PO .COMPLEX PRN Rx Instructions: 10 mg orally PRN; trazodone 100 MG tablet 100 mg PO QHS methylphenidate HCl 27 MG tablet extended release 24hr 27 mg PO DAILY erenumab-aooe 140 MG/ML auto-injector 140 mg SQ QMONTH Primary Care Provider: Kev Cheng Referrals: Kev Cheng MD [Primary Care Provider] - Print Language: Maldivian Disposition Disposition: Acute Care Hospital [facility]
[2024-11-17 18:09] LABS: Absolute Lymphocyte Count 3.43 X10^3/uL (0.83-4.51); Basophil# 0.05 X10^3/uL; Basophil% 0.7 % (0-1); Eosinophil# 0.15 X10^3/uL; Hematocrit 41.6 % (37-47); Hemoglobin 13.9 g/dL (12.0-15.0); Lymphocyte # 3.43 X10^3/ul (0.83-4.51); Lymphocyte % 46.6 % (19-41); Mean Corp Hgb Conc 33.4 g/dL (32-36); Mean Corpuscular Hgb 31.7 pg (27.0-32.0); Mean Platelet Vol. 9.3 fl (6.2-12.0); Monocyte# 0.75 X10^3/uL; Monocyte% 10.2 % (0-10); NRBC Flagged by Analyzer 0 % (0-5); Neutrophil # 2.97 X10^3/uL (2.7-7.7); Neutrophil % 40.4 % (47-70); Platelet Count 308 K/mm3 (150-450); RBC Distribution Width CV 12.9 % (11.6-14.6); RBC Distribution Width SD 44.7 fl (35.1-43.9); Red Blood Count 4.38 M/mm3 (4.2-5.4); White Blood Count 7.4 K/mm3 (4.4-11.0)
[2024-11-17] MEDS: Morphine 4 MG/ML Syringe IV (18:17)
[2024-11-17 18:26] LABS: AST(SGOT) 37 U/L (<=31); Alanine Aminotransfer ALT/SGPT 44 U/L (<=34); Albumin, Serum 4.5 g/dL (3.5-5.0); Alkaline Phosphatase 68 U/L (35-104); Anion Gap 12 (5-15); BUN 14 mg/dL (4-19); BUN/Creat Ratio 16.7 RATIO (10-20); Calcium,Total 9.6 mg/dL (7.6-11.0); Carbon Dioxide 26.2 mmol/L (21.0-32.0); Chloride 104 mmol/L (98-108); Creatinine, Serum 0.81 mg/dL (0.70-1.20); EST Glomerular Filtration Rate 84 (>60); Estimated Creatinine Clearance 78.15 ml/min (50-250); Glucose 130 mg/dL (70-99); Lipase 40 U/L (13-75); Protein, Total 7.5 g/dL (5.9-8.4); Sodium Level 142 mmol/L (133-145); Total Bilirubin 0.58 mg/dL (0.00-1.30)
[2024-11-17] MEDS: cycloBENZAPRine HCl 10 MG Tablet PO (19:16)
--- NOTE | 2024-11-17 19:18 | RAD_ITS ---
PROCEDURE: CHEST PA AND LATERAL 11/17/2024 REASON FOR EXAM: CHEST PAIN TECHNIQUE: Frontal and lateral views of the chest. COMPARISON: CT chest and abdomen 10/19/2021. FINDINGS: Hardware: None. Heart: The heart size is normal. Mediastinum: The mediastinal contour is stable. Lungs: Bibasilar atelectasis. Low lung volumes. No pneumothorax or pleural effusion. Bones: Degenerative changes are identified within the thoracic spine. RAD/Chest PA and Lateral IMPRESSION: NO ACUTE FINDINGS. Reading Location: [id number]
--- NOTE | 2024-11-17 20:16 | EKG12_ITS ---
Test Reason : REPEAT Blood Pressure : */* mmHG Vent. Rate : 87 BPM Atrial Rate : 87 BPM P-R Int : 130 ms QRS Dur : 78 ms QT Int : 370 ms P-R-T Axes : 29 4 61 degrees QTcB Int : 445 ms Normal sinus rhythm Normal ECG Confirmed by Sean Smallwood ([id number]), makeup editor CANDE WARREN ([id number]) on 11/19/2024 6:16:37 AM Referred By: Confirmed By: Sean Smallwood
[2024-11-17 20:17] LABS: Troponin T High Sensitivity 76 ng/L (<=14)
[2024-11-17 20:18] LABS: Troponin T High Sens 2 HR 69 ng/L (<=14)
[2024-11-17] MEDS: Nitroglycerin SL (ED/IMG/CATH) 0.4 MG TABLET SL (20:25)
--- NOTE | 2024-11-17 20:36 | CT_ITS ---
PROCEDURE: CTA CHEST W/WO CONTRAST 11/17/2024 REASON FOR EXAM: LEFT SIDED PLEURITIC CHEST PAIN TECHNIQUE: CTA axial imaging of the chest with intravenous contrast. Coronal and Sagittal reconstruction series were provided. 3D, 3D post processing, 3D reconstructions, Maximum intensity projection (MIPs) Volume rendering and Shaded surface rendering was provided. PATIENT PREPARATION: Per protocol CONTRAST: Isovue 370 VOLUME: 100mL One or more dose reduction techniques were used (e.g., Automated exposure control, adjustment of the mA and/or kV according to patient size, use of iterative reconstruction technique). RADIATION DOSE SUMMARY: CTDlvol: 24 mGy DLP: 500 mGycm COMPARISON: CT chest, abdomen and pelvis 10/19/2021. FINDINGS: Hardware: None. Lymph nodes: No axillary, mediastinal or hilar lymphadenopathy. Heart: The heart is normal in size without pericardial effusion. There is ectasia of the main pulmonary artery measuring 3.7 cm. No significant coronary artery calcifications. Pulmonary Vessels: No central filling defects in the segmental or subsegmental pulmonary arteries. Lungs and Airways: The central airways are patent. Bibasilar atelectasis and trace left pleural effusion. Mildly enlarged distal pulmonary arteries, greatest within the bibasilar lungs. No pneumothorax. Upper Abdomen: Prominent periportal nodes. Bones: Mild thoracic spondylosis. CT/CTA Chest W/WO Contrast IMPRESSION: 1. No acute pulmonary embolism. 2. Ectasia of the main pulmonary artery and enlargement of the distal pulmonary arteries, which can be seen with pulmonary hypertension. 3. Trace left pleural effusion. Reading Location: [id number]
[2024-11-17] MEDS: 0.9% Normal Saline (1000mL) 1,000 ML 999 ML IV (21:05)
[2024-11-17] MEDS: Lorazepam 2 MG/ML WCH Syringe 0.5 MG IV (21:05)
[2024-11-17] MEDS: Aspirin 325 MG Tablet PO (22:07)
[2024-11-17] MEDS: fentaNYL 100 MCG/2 ML Ampul 50 MCG IV (22:07)
--- NOTE | 2024-11-17 22:13 | PCM.HP.STD ---
HPI - General General Date of Admission: 11/17/24 Date of Service: 11/17/24 Chief Complaint: Chest pain HPI Narrative The patient is a 59 y/o F w/ PMHx: Anxiety and Depression/ADHD, Chronic migraines, OA who presents to the [facility] ED on 11/17/2024 with history of onset chest discomfort starting approximately 2 hours prior to ED arrival specifically under the left rib/breast region radiating up into the neck as well as the trapezius region noted that she was in the car when it started never having had this before noted to be worse with activity including movement and deep inspiratory effort prompting ED evaluation. She does state upon arrival an unintentional 20 pound weight loss over this last year but has had no GI symptoms. She did have a recent PCP evaluation with an outpatient ultrasound but is not yet had it performed. She does report that she is post to have an upcoming meniscal repair on her knee this coming Monday outpatient. Workup in the ED included T98.2, heart 92, BP 152/93, respiratory rate 22, 97% on room air with most recent repeat vitals heart rate 79, BP 110/73, respiratory rate 16, 95% on room air, CBC with WBC 7.4, hemoglobin 13.9, platelet 308 without marked shift, D-dimer 0.30, CMP with glucose 130, AST/ALT 37/44, hepatic profile otherwise unremarkable, lipase 40, troponin initial 76 with repeat delta 69, chest x-ray with no acute cardiopulmonary findings, CTPA with no acute pulmonary emboli, ectasia of the main pulmonary artery and enlargement of distal pulmonary arteries seen with possible pulmonary hypertension, trace left pleural effusion, EKG with SR without acute evidence of ischemia. In the ED patient ministered 1 L normal saline, full-strength aspirin therapy, morphine 4 mg IV x 1, sublingual nitroglycerin, Ativan 0.5 mg IV x 1, fentanyl 50 mcg IV x 1, cyclobenzaprine 10 mg p.o. x 1. [facility] Medical History ADHD Anxiety and depression Hx of migraines Splenomegaly Easy bruising Arthritis Home Medications ?Medication ?Instructions ?Recorded ?Last Taken ?Type methylphenidate HCl 27 mg 36 mg PO DAILY ADD 10/01/18 Unknown History tablet,extended release 24 hr trazodone 100 mg tablet 100 mg PO QHS 10/01/18 Unknown History erenumab-aooe 140 mg/mL 140 mg SQ QMONTH 12/05/19 Unknown History subcutaneous auto-injector ascorbate calcium (vitamin C) 500 500 mg PO DAILY 09/28/21 Unknown History mg tablet vitamin with calcium ea PO DAILY 09/28/21 Unknown History no.72-iron 27 mg-folic acid 1 mg tablet duloxetine 40 mg capsule,delayed 40 mg PO DAILY 10/06/21 Unknown History release magnesium oxide 500 mg capsule 1,000 mg PO DAILY 10/06/21 Unknown History vitamin B complex 1 tab PO DAILY 10/06/21 Unknown History rizatriptan 10 mg tablet 10 mg PO .COMPLEX PRN migraine 01/27/23 Unknown History headache lansoprazole 15 mg capsule,delayed 20 mg PO DAILY 11/17/24 Unknown History release (Prevacid 24Hr) Allergy/AdvReac Type Severity Reaction Status Date / Time amoxicillin Allergy Hives Verified 11/17/24 16:43 Sulfa (Sulfonamide Allergy Hives Verified 11/17/24 16:43 Antibiotics) zolmitriptan (From Zomig) Allergy ; Verified 11/17/24 16:43 verapamil AdvReac lightheaded Verified 11/17/24 16:43 dizzy Family History Mother Thyroid disorder Father , young in the . No medical history. No problems noted. Surgical History History of hysterectomy History of umbilical hernia repair H/O section History of carpal tunnel repair Hx of tonsillectomy Social History household members: family Smoking Status: Never smoker alcohol intake: current alcohol intake frequency: holidays/special occasions only Alcohol type: wine substance use type: does not use caffeine: No what type of physical activity do you participate in: none seatbelt use: always do you feel safe at home: Yes ROS ROS Narrative Admission Review of Systems: CONSTITUTIONAL: No weight loss, fever, chills, + weakness or fatigue. HEENT: Eyes: No visual loss, blurred vision, double vision or yellow sclerae. Ears, Nose, Throat: No hearing loss, sneezing, congestion, runny nose or sore throat. SKIN: No rash or itching, lesions, wounds. CARDIOVASCULAR: + Chest pain. No palpitations, edema, orthopnea, syncopal events. RESPIRATORY: + Pleuritic chest pain. No shortness of breath, cough or sputum, wheezing, hemoptysis. GASTROINTESTINAL: No anorexia, nausea, vomiting or diarrhea, abdominal pain, melena, BRBPR. GENITOURINARY: No dysuria, frequency, urgency or retention. NEUROLOGICAL: + Hx migraines. No headache, dizziness, syncope, paralysis, ataxia, numbness or tingling in the extremities, focal weakness, change in bowel or bladder control, seizure. MUSCULOSKELETAL: + Muscle, back pain, joint pain or stiffness. HEMATOLOGIC: No anemia, bleeding or bruising. LYMPHATICS: No enlarged nodes. No history of splenectomy. PSYCHIATRIC: + History of anxiety and depression/ADHD. ENDOCRINOLOGIC: No reports of sweating, cold or heat intolerance. No polyuria or polydipsia. ALLERGIES: + Hx of hives. Vital Signs Vital Signs Vital Signs: 11/17/24 16:43 11/17/24 16:45 11/17/24 17:43 Temperature 98.2 F Temperature Source Oral Pulse Rate 92 88 Respiratory Rate 22 H 16 Respiratory Effort Short of Breath Blood Pressure 152/93 H 132/94 H Blood Pressure Mean 112 106 Pulse Ox 97 98 Oxygen Delivery Method Room Air 11/17/24 17:54 11/17/24 18:00 11/17/24 19:00 Temperature Temperature Source Pulse Rate 82 79 Respiratory Rate 16 15 Respiratory Effort Blood Pressure 117/83 H 113/81 H Blood Pressure Mean 94 91 Pulse Ox 97 94 Oxygen Delivery Method Room Air Room Air Room Air 11/17/24 20:00 11/17/24 20:25 11/17/24 21:00 Temperature Temperature Source Pulse Rate 86 93 83 Respiratory Rate 18 17 Respiratory Effort Blood Pressure 118/81 H 120/81 H 109/80 Blood Pressure Mean 93 89 Pulse Ox 93 92 Oxygen Delivery Method Room Air Room Air 11/17/24 22:00 Temperature Temperature Source Pulse Rate 79 Respiratory Rate 16 Respiratory Effort Blood Pressure 110/73 Blood Pressure Mean 85 Pulse Ox 95 Oxygen Delivery Method Room Air Weight Weight: 171 lb 8.314 oz Body Mass Index (BMI) 25.3 Physical Exam Narrative Physical Examination: General: Awake, alert, oriented x 3 and cooperative, laying in ED bed, notes persistent left focal pain just beneath the breast. Skin: Normal color, normal turgor, no icterus, no cyanosis. HEENT: AT/NC, EOMI, PERRLA, mildly dry MM, no carotid bruits or JVD noted. Lungs: Mildly diminished, greater bases, very shallow poor effort breathing secondary to pain elicited with deep inspiratory effort, no rales, ronchi or wheezing. Heart: Regular rate and rhythm; no gallop, rub audible. Reproducible discomfort with palpation of the left lateral ribs beneath the left breast. Abdomen: Soft, overweight, NTTP, ND, normal BS, no appreciated HSM. Extremities: No cyanosis, clubbing, or edema. Neurological: Patient awake, alert, oriented as noted cognitive function intact; pupils equally reactive to light and accommodation, cranial nerves gross normal, moving all 4 extremities, no focal deficits, strength mildly to moderately globally creased secondary to pain elicited with any movement or deep inspiration. Psychiatric: Affect appears fatigued, uncomfortable no acute evidence of depressive or anxiety feelings but does have underlying history. Results Lab / Micro Data 11/17/24 16:45 11/17/24 16:45 Labs: Laboratory Results - last 24 hr 11/17/24 16:45: WBC 7.4, RBC 4.38, Hgb 13.9, Hct 41.6, MCV 95.0, MCH 31.7, MCHC 33.4, RDW Std Deviation 44.7 H, RDW Coeff of Maged 12.9, Plt Count 308, MPV 9.3, Immature Gran % (Auto) 0.100, Neut % (Auto) 40.4 L, Lymph % (Auto) 46.6 H, [place] % (Auto) 10.2 H, Eos % (Auto) 2.0, Baso % (Auto) 0.7, Absolute Neuts (auto) 3.0, Absolute Lymphs (auto) 3.43, Nucleated RBC % 0, D-Dimer Quant (PE/DVT) 0.30, Sodium 142, Potassium 4.0, Chloride 104, Carbon Dioxide 26.2, Anion Gap 12, BUN 14, Creatinine 0.81, Estim Creat Clear Calc 78.15, Est GFR (MDRD) Non-Af 84, BUN/Creatinine Ratio 16.7, Glucose 130 H, Calcium 9.6, Total Bilirubin 0.58, Direct Bilirubin 0.20, AST 37 H, ALT 44 H, Alkaline Phosphatase 68, Troponin T High Sens 76 H*, Total Protein 7.5, Albumin 4.5, Globulin 3.0, Lipase 40 11/17/24 18:45: Troponin T Hi Sens 2 Hr 69 H* Imaging Radiology Impression Chest X-Ray 11/17/24 19:18 IMPRESSION: NO ACUTE FINDINGS. Reading Location: [facility] Chest CTA 11/17/24 20:36 IMPRESSION: 1. No acute pulmonary embolism. 2. Ectasia of the main pulmonary artery and enlargement of the distal pulmonary arteries, which can be seen with pulmonary hypertension. 3. Trace left pleural effusion. Reading Location: [facility] Assessment & Plan Assessment/Plan (1) Chest pain: PLAN: Plan The patient is a 59 y/o F w/ PMHx: Anxiety and Depression/ADHD, Chronic migraines, OA who presents to the [facility] ED on 11/17/2024 with history of onset chest discomfort starting approximately 2 hours prior to ED arrival specifically under the left rib/breast region radiating up into the neck as well as the trapezius region noted that she was in the car when it started never having had this before noted to be worse with activity including movement and deep inspiratory effort prompting ED evaluation. #1. Chest Pain, atypical with indeterminate cardiac enzyme of unclear etiology, possibly multifactorial including component musculoskeletal and #5: EKG in ED with SR without acute evidence of ischemia, CXR w/ no acute cardiopulmonary finding, CTPA with no acute pulmonary emboli, ectasia of the main pulmonary artery and enlargement of distal pulmonary arteries seen with possible pulmonary hypertension, trace left pleural effusion, initial trop 76 with repeat delta 69. Will admit to PCU, place on a monitored bed to assure no acute myocardial infarction with serial cardiac enzymes and EKGs. As long as cardiac enzymes continue to trend downward with no EKG concerning changes with plan to pursue cardiac stress testing and given movement debility with her presentation will request nuclear option. Given also pleuritic component in the setting of elevated enzymes, will obtain ECHO, CRP and ESR also. FLP in AM. Mag pending. ASA. UDS requested. #2. Hyperglycemia, mild admission glucose 130, possibly stress response, will repeat in a.m. if further elevated may consider further assessment. #3. Mild transaminitis, unclear etiology: Admission AST/LT 37/44, hepatic profile otherwise normal, from previous labs noted to be normal in the past, will plan repeat CMP in a.m. and if rises further we will further assess. Patient following with PCP with planned upcoming outpatient gallbladder ultrasound of note. #4. Chronic migraines: Will temporally hold triptan therapy unless absolutely needed, patient also on monthly injections with erenumab, encourage continued outpatient follow-up with neurology as previously arranged. #5. Anxiety depression/ADHD: Will continue patient home trazodone, duloxetine and methylphenidate home regimen. #6. DVT prophylaxis: Lovenox. Charges/Coding Visit Charges Inpatient E&M: 31282 Init Hosp L3
--- NOTE | 2024-11-17 22:20 | EKG12_ITS ---
Test Reason : CP ADMIT Blood Pressure : */* mmHG Vent. Rate : 72 BPM Atrial Rate : 72 BPM P-R Int : 140 ms QRS Dur : 80 ms QT Int : 400 ms P-R-T Axes : 55 15 47 degrees QTcB Int : 438 ms Normal sinus rhythm Normal ECG When compared with ECG of 17-Nov-2024 20:22, MANUAL COMPARISON REQUIRED DATA IS UNCONFIRMED Confirmed by Sean Smallwood [id number]), science editor CANDE WARREN ([id number]) on 11/18/2024 9:09:45 AM Referred By: Confirmed By: Sean Smallwood
[2024-11-17 22:21] LABS: Troponin T High Sens 4 HR 54 ng/L (<=14)
--- OUTSIDE RECORDS SUMMARY | 2024-11-17 22:37 | XMS RPT_ITS | CCD ---
Author Organization [facility] Care Team Providers Care Fender Repairer Name Role Phone CARMEN, LAMAR P. Unavailable Unavailable CARMEN, LAMAR PVikki Unavailable Unavailable TREVON DERAS Unavailable Unavailable DENISE CHENG Unavailable Unavailable CARMEN, LAMAR PVikki Unavailable Unavailable HECTOR TORRES Unavailable Unavailable CARMEN, LAMAR P. Unavailable Unavailable CARMEN, LAMAR P. Unavailable Unavailable DENISE CHENG Unavailable Unavailable CARMEN, LAMAR PVikki Unavailable Unavailable JEFFREY LEVIN Unavailable Unavailable KERMIT, LAMAR PVikki Unavailable Unavailable Dr. Denise Cheng Primary Care Provider Dr. Denise Cheng Referring Provider Dr. Cecilio Lopez Attending Provider Dr. Denise Cheng Primary Care Provider Dr. Denise Cheng Referring Provider [phone] Cecilio Lopez Attending Provider JARED BERNARD Attending Unavailable DENISE CHENG Primary Care Unavailable JARED BERNARD Referring Unavailable DENISE CHENG Primary Care Unavailable Denise Cheng MD Primary Care Provider Dr. Denise Cheng Primary Care Provider Dr. Denise Cheng Referring Provider Iqra OMALLEY, SHAHRAM Bhardwaj Attending Provider Dr. Denise Cheng MD Primary Care Provider Dr. Denise Cheng MD Referring Provider [phone] Tasha ZACARIAS-CAdilson Attending Provider Denis ZACARIAS-CFarida Attending Provider Dr. Denise Cheng MD Attending Provider Dr. Saul Bazan DO Attending Provider Dr. Saul Bazan DO Referring Provider [phone] Jaquelin COHEN, Dr. Mondragon Attending Provider [phone] Cheng, Denise Primary Care Unavailable Wagner Whitten Attending Unavailable Wagner Whitten Referring Unavailable Cheng, Denise Attending Unavailable Cheng, Denise Referring Unavailable Cheng, Denise Primary Care Unavailable Cheng, Denise Primary Care Unavailable Adilson Cordova Attending Unavailable Cheng, Denise Referring Unavailable Cheng, Denise Attending Unavailable Cheng, Denise Primary Care Unavailable Cheng, Denise Primary Care Unavailable Cheng, Denise Attending Unavailable Cheng, Denise Referring Unavailable Cheng, Denise Primary Care Unavailable Natalia Felix Attending Unavailable Cheng, Denise Referring Unavailable Ashutosh Yang Attending Unavailable Cheng, Denise Primary Care Unavailable Cheng, Denise Referring Unavailable Cheng, Denise Primary Care Unavailable Adilson Cordova Attending Unavailable Cheng, Denise Referring Unavailable Farida Barrios Attending Unavailable Cheng, Denise Primary Care Unavailable Giancarlo Hammer Attending Unavailable Cheng, Denise Primary Care Unavailable Saul Bazan Referring Unavailable Cheng, Denise Primary Care Unavailable Saul Bazan Attending Unavailable Saul Bazan Referring Unavailable Cheng, Denise Primary Care Unavailable Cheng, Denise Attending Unavailable Cheng, Denise Referring Unavailable Allergies Allergy Classification Reported Allergen(s) Allergy Type Date of Onset Reaction(s) Facility (14 sources) Amoxicillin; Translations: [AMOXICILLIN] Drug Allergy 6 [facility] (15 sources) Sulfonamides (Antibiotic); Translations: [SULFA (SULFONAMIDE ANTIBIOTICS)] Allergy to substance 6 [facility] (12 sources) Verapamil Drug Allergy [address] [facility] (12 sources) ZOLMitriptan Drug Allergy 2 ; [facility] (1 source) Amoxicillin Drug Allergy 5 [facility] (1 source) Verapamil Drug Allergy 5 [facility] (1 source) ZOLMitriptan Drug Allergy 5 [facility] Medications Current Medications Medication Drug Class(es) [...] 2021 12:00am take 1 capsule by mo [facility] twice daily magnesium oxide 400 mg cap [...] PO DAILY October 01, 2018 12:00am Pnv,Calcium 10-Cgvd-Cbaed Acid ( Vitamin Plus Low Iron) 27 mg iron- 1 mg tablet (12 sources) Start: 09-29-19 Pnv,Calcium 87-Pxke-Cihsr Acid ( Vitamin Plus Low Iron) 27 [...] above: Take 1 tablet by oleksandr th once daily. hydrOXYzine hydrochloride 25 mg oral [...] above: Take 1 capsule by mo ut once daily. naproxen 250 mg oral tablet [...] MG tablet Discontinued 40 mg PO DAILY 60 December 11, 2019 12:00am January 27, 2023 [...] Abdominal pain; Translations: [Unspecified abdominal pain] Onset: 11-17-2024 10-12-2021 Episodic Immunizations and screening for infectious [...] Test Name Value Interpretation Reference Range Facility Basic Metabolic Profile (BMP )on 11-17-2024 BUN/CRE 16.7 RATIO Normal 10-20 [facility] Comment on above: Performed By: #### M 100.2200 #### [facility] [address] [place], [address] Calcium [Mass/Vol] 9.6 mg/dL Normal 7.6-11.0 [facility] Comment on above: Performed By: #### M 100.2200 #### [facility] [address] [place], [address] Chloride [Moles/Vol] 104 mmol/L Normal 98-108 [facility] Comment on above: Performed By: #### M 100.2200 #### [facility] [address] [place], [address] CO2 [Moles/Vol] 26.2 mmol/L Normal 21.0-32.0 [facility] Comment on above: Performed By: #### M 100.2200 #### [facility] [address] [place], [address] Creatinine [Mass/Vol] 0.81 mg/dL Normal 0.70-1.20 [facility] Comment on above: Performed By: #### M 100.2200 #### [facility] [address] [place], [address] ECRCL 78.15 ml/min Normal 50-250 [facility] Comment on above: Performed By: #### M 100.2200 #### [facility] [address] [place], [address] GAP 12 Normal 5-15 [facility] Comment on above: Performed By: #### M 100.2200 #### [facility] [address] [place], [address] GFR/1.73 sq M.predicted among non-blacks MDRD (S/P/Bld) [Vol rate/Area] 84 mL/min/{1.73_m2} Normal >60 [facility] Comment on above: Result Comment: mL/m in/1.73m2 CKD-EPI Creatinine Equation (2020) Performed By: #### M 100.2200 #### [facility] [address] [place], [address] Glucose [Mass/Vol] 130 mg/dL High 70-99 [facility] Comment on above: Performed By: #### M 100.2200 #### [facility] [address] [place], [address] Potassium [Moles/Vol] 4.0 mmol/L Normal 3.3-5.1 [facility] Comment on above: Performed By: #### M 100.2200 #### [facility] [address] [place], [address] Sodium [Moles/Vol] 142 mmol/L Normal 133-145 [facility] Comment on above: Performed By: #### M 100.2200 #### [facility] [address] [place], [address] Urea nitrogen [Mass/Vol] 14 mg/dL Normal 4-19 [facility] Comment on above: Performed By: #### M 100.2200 #### [facility] [address] [place], [address] CBC W/Diff, Automatedon 06-0 8-2024 Absolute Lymph 3.43 X10 3/uL Normal 0.83-4.51 [facility] Comment on above: Performed By: #### L 100.0100 ####[facility] [address] [place], [address] Absolute Neut 3.0 X10 3/uL Normal 2.0-7.7 [facility] Comment on above: Performed By: #### L 100.0100 ####[facility] [address] [place], [address] Basophils/100 WBC (Bld) 0.7 % Normal 0-1 [facility] Comment on above: Performed By: #### L 100.0100 ####[facility] [address] [place], [address] Eosinophils/100 WBC (Bld) 2.0 % Normal 0-5 [facility] Comment on above: Performed By: #### L 100.0100 ####[facility] [address] [place], [address] Erythrocyte distribution width (RBC) [Ratio] 12.9 % Normal 11.6-14.6 [facility] Comment on above: Performed By: #### L 100.0100 ####[facility] [address] [place], [address] Hematocrit (Bld) [Volume fraction] 41.6 % Normal 37-47 [facility] Comment on above: Performed By: #### L 100.0100 ####[facility] [address] [place], [address] Hemoglobin (Bld) [Mass/Vol] 13.9 g/dL Normal 12.0-15.0 [facility] Comment on above: Performed By: #### L 100.0100 ####[facility] [address] [place], [address] IG% 0.100 Normal 0.0-0.9 [facility] Comment on above: Result Comment: IG% - Immature Granulocytes (promyelocytes, myelocytes and metamyelocytes) > 1% indicates that a LEFT SHIFT is Present. Performed By: #### L 100.0100 ####[facility] [address] [place], [address] Lymphocytes/100 WBC (Bld) 46.6 % High 19-41 [facility] Comment on above: Performed By: #### L 100.0100 ####[facility] [address] [place], [address] MCH (RBC) [Entitic mass] 31.7 pg Normal 27.0-32.0 [facility] Comment on above: Performed By: #### L 100.0100 ####[facility] [address] [place], [address] MCHC (RBC) [Mass/Vol] 33.4 g/dL Normal 32-36 [facility] Comment on above: Performed By: #### L 100.0100 ####[facility] [address] [place], [address] MCV (RBC) [Entitic vol] 95.0 fL Normal 81-99 [facility] Comment on above: Performed By: #### L 100.0100 ####[facility] [address] [place], [address] Monocytes/100 WBC (Bld) 10.2 % High 0-10 [facility] Comment on above: Performed By: #### L 100.0100 ####[facility] [address] [place], [address] Neutrophils/100 WBC (Bld) 40.4 % Low 47-70 [facility] Comment on above: Performed By: #### L 100.0100 ####[facility] [address] [place], [address] Nucleated RBC (Bld) [#/Vol] 0 10*3/uL Normal 0-5 [facility] Comment on above: Performed By: #### L 100.0100 ####[facility] [address] [place], [address] Platelet mean volume (Bld) [Entitic vol] 9.3 fL Normal 6.2-12.0 [facility] Comment on above: Performed By: #### L 100.0100 ####[facility] [address] [place], [address] Platelets (Bld) [#/Vol] 308 10*3/uL Normal 150-450 [facility] Comment on above: Performed By: #### L 100.0100 ####[facility] [address] [place], [address] RBC (Bld) [#/Vol] 4.38 10*6/uL Normal 4.2-5.4 [facility] Comment on above: Performed By: #### L 100.0100 ####[facility] [address] [place], [address] RDW SD 44.7 fl High 35.1-43.9 [facility] Comment on above: Performed By: #### L 100.0100 ####[facility] [address] [place], [address] WBC (Bld) [#/Vol] 7.4 10*3/uL Normal 4.4-11.0 [facility] Comment on above: Performed By: #### L 100.0100 ####[facility] [address] [place], [address] Chest PA and Lateralon 11-17 Chest PA and Lateral [facility] [address] [place] [address] Chest PA and Lateral MR#: [id number] Acct: [id number] Name: YUMIKO SINGH Rep #: [id number] : 1965 F 59 From: Jacqueline Amor nd, MD PCP: Dr. Denise Cheng MD Status: [facility] ER Study: Chest PA and Lateral Date of Exam: 11/17/24 Exam# [id number] Ordering Dr: Natalia Felix DO PROCEDURE: CHEST PA AND LATERAL 11/17/2024 REASON FOR EXAM: CHEST PAIN TECHNIQUE: Frontal and lateral views of the chest. COMPARISON: CT chest and abdomen 10/19/2021. FINDINGS: Hardware: None. Heart: The heart size is normal. Mediastinum: The mediastinal contour is stable. Lungs: Bibasilar atelectasis. Low lung volumes. No pneumothorax or pleural effusion. Bones: Degenerative changes are identified within the thoracic spine. RAD/Chest PA and Lateral IMPRESSION: NO ACUTE FINDINGS. Reading Location: [facility] CC: Dr. Natalia Felix DO; Dr. Denise Cheng MD [place] Frame Builder: Signed Normal [facility] D-Dimer Quantitative (DVT/PE )on 11-17-2024 D-DIMER QUANT 0.30 FEU/ug/m Normal 0.27-0.49 [facility] Comment on above: Result Comment: NORM AL D-Dimer level (<0.50) indicates no DVT or PE. Performed By: #### L 300.8000 ####[facility] [address] [place], [address] Lipaseon 11-17-2024 Lipase [Catalytic activity/Vol] 40 U/L Normal 13-75 [facility] Comment on above: Result Comment: Plea se note: LIPASE revised reference range effective 22. New Lipase methodology. Expected to produce lower values than the previous assay method. NEW Reference Range: 13 - 75 U/L Performed By: #### M 100.2200 #### [facility] [address] [place], [address] Liver Profileon 11-17-2024 Albumin [Mass/Vol] 4.5 g/dL Normal 3.5-5.0 [facility] Comment on above: Performed By: #### M 100.2200 #### [facility] [address] [place], [address] ALK PHOS 68 U/L Normal 35-104 [facility] Comment on above: Performed By: #### M 100.2200 #### [facility] [address] [place], [address] ALT [Catalytic activity/Vol] 44 U/L High <=34 [facility] Comment on above: Performed By: #### M 100.2200 #### [facility] [address] [place], [address] AST [Catalytic activity/Vol] 37 U/L High <=31 [facility] Comment on above: Performed By: #### M 100.2200 #### [facility] [address] [place], [address] Bilirubin [Mass/Vol] 0.58 mg/dL Normal 0.00-1.30 [facility] Comment on above: Performed By: #### M 100.2200 #### [facility] [address] [place], [address] Bilirubin.direct [Mass/Vol] 0.20 mg/dL Normal 0.00-0.30 [facility] Comment on above: Performed By: #### M 100.2200 #### [facility] [address] [place], [address] Globulin (S) [Mass/Vol] 3.0 g/dL Normal 2.2-4.2 [facility] Comment on above: Performed By: #### M 100.2200 #### [facility] [address] [place], [address] T PROT 7.5 g/dL Normal 5.9-8.4 [facility] Comment on above: Performed By: #### M 100.2200 #### [facility] [address] [place], [address] ANTINUCLEAR ANTIBODIES DIREC Ton 05-27-2025 BLAKE,DIRECT Positive Abnormal Negative [facility] Comment on above: Result Comment: Perf ormed at: - [facility] [address], [place], [place] [id number] [employer] Refueling Handler: Dominick De La Rosa PhD, Phone: [phone] Performed By: #### L 420.7460, L500.4050, L506.0400, L100.0100, L501.8020, L3100.1501 ####[facility] [address] [place], [place], [address] Absolute lymphocyte countOrd ered By: Denise Cheng on 10-31-2024 Lymphocytes Auto (Unsp spec) [#/Vol] 2.48 10*3/uL 0.83-4.51 [facility] Absolute neutrophil countOrd ered By: Denise Cheng on 10-31-2024 Neutrophils (Bld) [#/Vol] 2.7 10*3/uL 2.0-7.7 [facility] Anion gap in Serum or Plasma Ordered By: Denise Cheng on 10-31-2024 Anion gap [Moles/Vol] 10 mmol/L 5- [facility] Automated lymphocyte count a s percentage of total leukocytesOrdered By: Denise Cheng on 10-31-2024 Lymphocytes/100 WBC Auto (Unsp spec) 40.6 % - [facility] BUN/creatinine ratioOrdered By: Denise Cheng on 10-31-2024 Urea nitrogen/Creatinine [Mass ratio] 21.1 mg/mg High 10-20 [facility] Basophil percentageOrdered B y: Denise Cheng on 10-31-2024 Basophils/100 WBC (Bld) 0.8 % 0-1 [facility] Bilirubin, totalOrdered By: Denise Cheng on 10-31-2024 Bilirubin [Mass/Vol] 0.57 mg/dL 0.00-1.30 [facility] CBC W/Diff, Automatedon 10-11 Absolute Lymph 2.48 X10 3/uL Normal 0.83-4.51 [facility] Comment on above: Performed By: #### M 100.2200 #### [facility] [address] [place], [address] Absolute Neut 2.7 X10 3/uL Normal 2.0-7.7 [facility] Comment on above: Performed By: #### M 100.2200 #### [facility] [address] [place], [address] Basophils/100 WBC (Bld) 0.8 % Normal 0-1 [facility] Comment on above: Performed By: #### M 100.2200 #### [facility] [address] [place], [address] Eosinophils/100 WBC (Bld) 3.3 % Normal 0-5 [facility] Comment on above: Performed By: #### M 100.2200 #### [facility] [address] [place], [address] Erythrocyte distribution width (RBC) [Ratio] 13.2 % Normal 11.6-14.6 [facility] Comment on above: Performed By: #### M 100.2200 #### [facility] [address] [place], [address] Hematocrit (Bld) [Volume fraction] 43.0 % Normal 37-47 [facility] Comment on above: Performed By: #### M 100.2200 #### [facility] [address] [place], [address] Hemoglobin (Bld) [Mass/Vol] 13.9 g/dL Normal 12.0-15.0 [facility] Comment on above: Performed By: #### M 100.2200 #### [facility] [address] [place], [address] IG% 0.200 Normal 0.0-0.9 [facility] Comment on above: Result Comment: IG% - Immature Granulocytes (promyelocytes, myelocytes and metamyelocytes) > 1% indicates that a LEFT SHIFT is Present. Performed By: #### M 100.2200 #### [facility] [address] [place], [address] Lymphocytes/100 WBC (Bld) 40.6 % Normal 19-41 [facility] Comment on above: Performed By: #### M 100.2200 #### [facility] [address] [place], [address] MCH (RBC) [Entitic mass] 31.4 pg Normal 27.0-32.0 [facility] Comment on above: Performed By: #### M 100.2200 #### [facility] [address] [place], [address] MCHC (RBC) [Mass/Vol] 32.3 g/dL Normal 32-36 [facility] Comment on above: Performed By: #### M 100.2200 #### [facility] [address] [place], [address] MCV (RBC) [Entitic vol] 97.3 fL Normal 81-99 [facility] Comment on above: Performed By: #### M 100.2200 #### [facility] [address] [place], [address] Monocytes/100 WBC (Bld) 11.5 % High 0-10 [facility] Comment on above: Performed By: #### M 100.2200 #### [facility] [address] [place], [address] Neutrophils/100 WBC (Bld) 43.6 % Low 47-70 [facility] Comment on above: Performed By: #### M 100.2200 #### [facility] [address] [place], [address] Nucleated RBC (Bld) [#/Vol] 0 10*3/uL Normal 0-5 [facility] Comment on above: Performed By: #### M 100.2200 #### [facility] [address] [place], [address] Platelet mean volume (Bld) [Entitic vol] 9.2 fL Normal 6.2-12.0 [facility] Comment on above: Performed By: #### M 100.2200 #### [facility] [address] [place], [address] Platelets (Bld) [#/Vol] 259 10*3/uL Normal 150-450 [facility] Comment on above: Performed By: #### M 100.2200 #### [facility] [address] [place], [address] RBC (Bld) [#/Vol] 4.42 10*6/uL Normal 4.2-5.4 [facility] Comment on above: Performed By: #### M 100.2200 #### [facility] [address] [place], [address] RDW SD 47.4 fl High 35.1-43.9 [facility] Comment on above: Performed By: #### M 100.2200 #### [facility] [address] [place], [address] WBC (Bld) [#/Vol] 6.1 10*3/uL Normal 4.4-11.0 [facility] Comment on above: Performed By: #### M 100.2200 #### [facility] [address] [place], [address] CRPon 10-31-2024 C-REACTIVE PROT < 3.00 Normal 0.0-3.0 [facility] Comment on above: Performed By: #### L 501.6710, L500.4050, L506.0400, L100.0100, L501.9520, L3100.5475 ####[facility] [address] [place], [address] Carbon dioxide, total [Moles /volume] in Central venous bloodOrdered By: Denise Cheng on 10-31-2024 CO2 [Moles/Vol] 25.0 mmol/L 21.0-32.0 [facility] Chloride assayOrdered By: Nadir Cheng on 10-31-2024 Chloride [Moles/Vol] 107 mmol/L 98-108 [facility] Comprehensive Metabolic Prof ilon 10-31-2024 Albumin [Mass/Vol] 4.2 g/dL Normal 3.5-5.0 [facility] Comment on above: Performed By: #### M 100.2200 #### [facility] [address] [place], [address] Albumin/Globulin [Mass ratio] 1.4 {ratio} Normal 0.9-2.4 [facility] Comment on above: Performed By: #### M 100.2200 #### [facility] [address] [place], [address] ALK PHOS 65 U/L Normal 35-104 [facility] Comment on above: Performed By: #### M 100.2200 #### [facility] [address] [place], [address] ALT [Catalytic activity/Vol] 44 U/L High <=34 [facility] Comment on above: Performed By: #### M 100.2200 #### [facility] [address] [place], [address] AST [Catalytic activity/Vol] 34 U/L High <=31 [facility] Comment on above: Performed By: #### M 100.2200 #### [facility] [address] [place], [address] Bilirubin [Mass/Vol] 0.57 mg/dL Normal 0.00-1.30 [facility] Comment on above: Performed By: #### M 100.2200 #### [facility] [address] [place], [address] BUN/CRE 21.1 RATIO High 10-20 [facility] Comment on above: Performed By: #### M 100.2200 #### [facility] [address] [place], [address] Calcium [Mass/Vol] 9.5 mg/dL Normal 7.6-11.0 [facility] Comment on above: Performed By: #### M 100.2200 #### [facility] [address] [place], [address] Chloride [Moles/Vol] 107 mmol/L Normal 98-108 [facility] Comment on above: Performed By: #### M 100.2200 #### [facility] [address] [place], [address] CO2 [Moles/Vol] 25.0 mmol/L Normal 21.0-32.0 [facility] Comment on above: Performed By: #### M 100.2200 #### [facility] [address] [place], [address] Creatinine [Mass/Vol] 0.87 mg/dL Normal 0.70-1.20 [facility] Comment on above: Performed By: #### M 100.2200 #### [facility] [address] [place], [address] GAP 10 Normal 5-15 [facility] Comment on above: Performed By: #### M 100.2200 #### [facility] [address] [place], [address] GFR/1.73 sq M.predicted among non-blacks MDRD (S/P/Bld) [Vol rate/Area] 77 mL/min/{1.73_m2} Normal >60 [facility] Comment on above: Result Comment: mL/m in/1.73m2 CKD-EPI Creatinine Equation (2020) Performed By: #### M 100.2200 #### [facility] [address] [place], [address] Globulin (S) [Mass/Vol] 2.9 g/dL Normal 2.2-4.2 [facility] Comment on above: Performed By: #### M 100.2200 #### [facility] [address] [place], [address] Glucose [Mass/Vol] 77 mg/dL Normal 70-99 [facility] Comment on above: Performed By: #### M 100.2200 #### [facility] [address] [place], [address] Potassium [Moles/Vol] 4.1 mmol/L Normal 3.3-5.1 [facility] Comment on above: Performed By: #### M 100.2200 #### [facility] [address] [place], [address] Sodium [Moles/Vol] 142 mmol/L Normal 133-145 [facility] Comment on above: Performed By: #### M 100.2200 #### [facility] [address] [place], [address] T PROT 7.1 g/dL Normal 5.9-8.4 [facility] Comment on above: Performed By: #### M 100.2200 #### [facility] [address] [place], [address] Urea nitrogen [Mass/Vol] 18 mg/dL Normal 4-19 [facility] Comment on above: Performed By: #### M 100.2200 #### [facility] [address] [place], [address] Eosinophil percentageOrdered By: Denise Cheng on 10-31-2024 Eosinophils/100 WBC (Bld) 3.3 % 0-5 [facility] Erythrocyte distribution wid th ratioOrdered By: Denise Cheng on 10-31-2024 Erythrocyte distribution width (RBC) [Ratio] 13.2 % 11.6-14.6 [facility] Erythrocyte distribution wid th standard deviationOrdered By: Denise Cheng on 10-31-2024 Erythrocyte distribution width (RBC) [Ratio] 47.4 fl High 35.1-43.9 [facility] Glomerular filtration rate ( GFR) estimation/1.73 sq m using serum, plasma, or whole bOrdered By: Denise Cheng on 10-31-2024 GFR/1.73 sq M.predicted among non-blacks MDRD (S/P/Bld) [Vol rate/Area] 77 mL/min/{1.73_m2} >60 [facility] Comment on above: mL/min/1.73m2 CKD-EP I Creatinine Equation (2020) Hematocrit Auto (Bld) [Volum e fraction]Ordered By: Denise Cheng on 10-31-2024 Hematocrit (Bld) [Volume fraction] 43.0 % 37-47 [facility] Hemoglobin measurementOrdere d By: Denise Cheng on 10-31-2024 Hemoglobin (Bld) [Mass/Vol] 13.9 g/dL 12.0-15.0 [facility] Immature granulocytes/100 WB C Auto (Bld)Ordered By: Denise Cheng on 10-31-2024 Immature granulocytes/100 WBC (Bld) 0.200 % 0.0-0.9 [facility] Comment on above: IG% - Immature Granu locytes (promyelocytes, myelocytes and metamyelocytes) > 1% indicates that a LEFT SHIFT is Present. Laboratory - Chemistry and C hemistry - challengeOrdered By: Denise Cheng on 10-31-2024 AST [Catalytic activity/Vol] 34 U/L High <32 [facility] MCV (mean corpuscular volume ) determinationOrdered By: Denise Cheng on 10-31-2024 MCV (RBC) [Entitic vol] 97.3 fL 81-99 [facility] Mean corpuscular hemoglobin (MCH) determinationOrdered By: Denise Cheng on 10-31-2024 MCH (RBC) [Entitic mass] 31.4 pg 27.0-32.0 [facility] Mean corpuscular hemoglobin concentration (MCHC) determinationOrdered By: Denise Cheng on 10-31-2024 MCHC (RBC) [Mass/Vol] 32.3 g/dL 32-36 [facility] Mean platelet volume determi nationOrdered By: Denise Cheng on 10-31-2024 Platelet mean volume (Bld) [Entitic vol] 9.2 fL 6.2-12.0 [facility] Monocyte percentageOrdered B y: Denise Cheng on 10-31-2024 Monocytes/100 WBC (Bld) 11.5 % High 0-10 [facility] Neutrophil percentageOrdered By: Denise Cheng on 10-31-2024 Neutrophils/100 WBC (Bld) 43.6 % Low 47-70 [facility] Nucleated red blood cell per centageOrdered By: Denise Cheng on 10-31-2024 Nucleated RBC/100 WBC (Bld) [Ratio] 0 % 0-5 [facility] Platelet countOrdered By: Nadir Cheng on 10-31-2024 Platelets (Bld) [#/Vol] 259 10*3/uL 150-450 [facility] Potassium measurement (mass/ volume)Ordered By: Denise Cheng on 10-31-2024 Potassium (Unsp spec) [Mass/Vol] 4.1 mmol/L 3.3-5.1 [facility] RBC Auto (Bld) [#/Vol]Ordere d By: Denise Cheng on 10-31-2024 RBC (Bld) [#/Vol] 4.42 10*6/uL 4.2-5.4 [facility] Serum creatinine measurement (mass/volume)Ordered By: Denise Cheng on 10-31-2024 Creatinine [Mass/Vol] 0.87 mg/dL 0.70-1.20 [facility] Serum globulin measurementOr dered By: Denise Cheng on 10-31-2024 Globulin (S) [Mass/Vol] 2.9 g/dL 2.2-4.2 [facility] Serum glucose measurement (m ass/volume)Ordered By: Denise Cheng on 10-31-2024 Glucose [Mass/Vol] 77 mg/dL 70-99 [facility] Serum or plasma C reactive p rotein measurement (mass/volume)Ordered By: Denise Cheng on 10-31-2024 CRP [Mass/Vol] mg/L 0.0-3.0 [facility] Serum or plasma alanine turcios otransferase (ALT) measurementOrdered By: Denise Cheng on 10-31-2024 ALT [Catalytic activity/Vol] 44 U/L High <35 [facility] Serum or plasma albumin hannah urement (mass/volume)Ordered By: Denise Cheng on 10-31-2024 Albumin [Mass/Vol] 4.2 g/dL 3.5-5.0 [facility] Serum or plasma albumin/glob ulin mass ratioOrdered By: Denise Cheng on 10-31-2024 Albumin/Globulin [Mass ratio] 1.4 {ratio} 0.9-2.4 [facility] Serum or plasma alkaline daya sphatase measurementOrdered By: Denise Cheng on 10-31-2024 ALP [Catalytic activity/Vol] 65 U/L 35-104 [facility] Serum or plasma calcium hannah urement (mass/volume)Ordered By: Denise Cheng on 10-31-2024 Calcium [Mass/Vol] 9.5 mg/dL 7.6-11.0 [facility] Serum or plasma urea nitroge n measurement (mass/volume)Ordered By: Denise Cheng on 10-31-2024 Urea nitrogen [Mass/Vol] 18 mg/dL 4-19 [facility] Sodium levelOrdered By: Denise Cheng on 10-31-2024 Sodium [Moles/Vol] 142 mmol/L 133-145 [facility] T4 Free Directon 10-31-2024 T4 FREE DIRECT 1.10 ng/dL Normal 0.76-1.46 [facility] Comment on above: Performed By: #### M 100.4114 #### [facility] [address] [place], [place] [address], [place], [id number] T4 freeOrdered By: Denise plasencia on 10-31-2024 Free T4 [Mass/Vol] 1.10 ng/dL 0.76-1.46 [facility] TSH DL <= 0.005 mIU/L QnOrde red By: Denise Cheng on 10-31-2024 TSH Qn 2.600 uIU/mL 0.300-4.[address] [facility] Thyroid Stim Hormone (TSH)on 10-31-2024 TSH 2.600 uIU/mL Normal 0.300-4.[address] [facility] Comment on above: Performed By: #### M 100.2202 #### [facility] [address] [place], [address] Total proteinOrdered By: Martha Cheng on 10-31-2024 Protein [Mass/Vol] 7.1 g/dL 5.9-8.4 [facility] White blood cell (WBC) count Ordered By: Denise Cheng on 10-31-2024 WBC (Bld) [#/Vol] 6.1 10*3/uL 4.4-11.0 [facility] Electrocardiogram reportOrde red By: Giancarlo Hammer on 10-02-2024 EKG study [facility] Cardiovascular Services [address] [place] [address] 12 Lead EKG 10/01/24 0723 MR#: [id number] Acct: [id number] Name: YUMIKO SINGH Rep #:[id number] : 1965 58 From: Giancarlo Hammer MD Attending Dr: Dr. Saul Bazan DO Status: REG CLI Ordering Dr: Saul Bazan DO Date: 10/01/24 Location: [facility] Sex: F C Admitted: Test Reason : PREOP Blood Pressure : */* mmHG Vent. Rate : 87 BPM Atrial Rate : 87 BPM P-R Int : 136 ms QRS Dur : 68 ms QT Int : 370 ms P-R-T Axes : 62 17 56 degrees QTcB Int : 445 ms Normal sinus rhythm Normal ECG Confirmed by GIANCARLO HAMMER MD ([id number]), news videotape editor CANDE WARREN ([id number]) on 10/02/2024 7:55:37 AM Referred By: Saul Bazan Confirmed By: GIANCARLO HAMMER MD 10/02/24 2729 Date _ Giancarlo Hammer MD CC: Dr. Denise Cheng MD; Dr. Saul Bazan DO ~ Signed [facility] Other Phone: 12 Lead EKGon 10-01-2024 12 Lead EKG [facility] Cardiovascular Services [address] [place] [address] 12 Lead EKG 10/01/24 0723 MR#: [id number] Acct: [id number] Name: YUMIKO SINGH Rep #: [id number] : 1965 58 From: Giancarlo Hammer MD Attending Dr: Dr. Saul Bazan DO Status: REG CLI Ordering Dr: Saul Bazan DO Date: 10/01/24 Location: [facility] Sex: F C Admitted: Test Reason : PREOP Blood Pressure : */* mmHG Vent. Rate : 87 BPM Atrial Rate : 87 BPM P-R Int : 136 ms QRS Dur : 68 ms QT Int : 370 ms P-R-T Axes : 62 17 56 degrees QTcB Int : 445 ms Normal sinus rhythm Normal ECG Confirmed by GIANCARLO HAMMER MD ([id number]), news videotape editor CANDE WARREN ([id number]) on 10/02/2024 7:55:37 AM Referred By: Saul Bazan Confirmed By: GIANCARLO HAMMER MD 10/02/24 0752 Date Giancarlo Hammer MD CC: Dr. Denise Cehng MD; Dr. Saul Bazan DO Signed Normal [facility] Breast imaging reportOrdered By: Cielo Ignacio on 09-04-2024 Study report [facility] Imaging Services [address] [place] [address] SCRN MAMM (CAD)W/DINH BILAT MR#: [id number] Acct: [id number] Name: YUMIKO SINGH Rep #: [id number] : 1965 F 58 From: Stephane Ignacio DO PCP: Dr. Denise Cheng MD Status: REG CLI Study:SCRN MAMM (CAD)W/DINH BILAT Date of Exa m: 09/03/24 Exam# [id number] Ordering Dr: Nadir Cheng MD EXAM: PROCEDURE: [...] you for referring your patient to the [facility] System, if you have any questions, please call us at the performing site listed at the top of the report. [facility] , [facility] , [facility] and [facility] [facility] . Reading Location: [id number] CC: Dr. Denise Cheng MD ~ [place] Frame Builder: Signed [facility] SCRN MAMM (CAD)W/DINH BILATo n 09-03-2024 SCRN MAMM (CAD)W/DINH BILAT [facility] Imaging Services [address] [place] [address] SCRN MAMM (CAD)W/DINH BILAT MR#: [id number] Acct: [id number] Name: YUMIKO SINGH Rep #: [id number] : 1965 F 58 From: Cielo Hardy PCP: Dr. Denise Cheng MD Status: [facility] Study: SCRN MAMM (CAD)W/DINH BILAT Date of Exam: 08/11 11/03 Exam# [id number] Ordering Dr: Denise Cheng MD EXAM: PROCEDURE: [...] you for referring your patient to the [facility], if you have any questions, please call us at the performing site listed at the top of the report. [facility] , [facility] , [facility] and [employer] [facility] [facility] . Reading Location: [id number] CC: Dr. Denise Cheng MD [place] Frame Builder: Signed Normal [facility] Urgent Care Visit Reporton 0 08-10-2024 Urgent Care Visit Report [facility] [address], [address] [place] [address] OFFICE VISIT Date of Service: 08/10/24 MR#: [id number] Acct: [id number] Name: YUMIKO SINGH Rep #: [id number] : 1965 Provider: ILENE Barrios Age/Sex: 58/F Location: [facility] Status: Signed Intake Vital Signs 07/28/24 12:43 [...] COUGH/ST/FEVER/CONGESTION Chief Complaint: cough, ST, fever, congest Log Preparer Required: No Is patient in pain?: No [...] fever, congest x 1 week without resolve. [facility] Medical History (Updated 08/10/24 @ 09:47 by [...] General: pa (more content not included)... Normal [facility] Urine Cultureon 07-31-2024 URC Mixed Gram Positive Organisms [place] Count 1000-10,000 MIXC Mixed contaminants. Submit a new specimen if indicated. Normal [facility] Comment on above: Performed By: #### M 328.6279 #### [facility] [address] [place], [place], [address] Urine cultureOrdered By: Dawson Cordova on 07-29-2024 Bacteria identified Cx Nom (U) Positive Abnormal [facility] Laboratory - Chemistry and C hemistry - challengeOrdered By: Adilson Cordova on 07-28-2024 Bilirubin Ql (U) Negative [facility] Glucose Ql (U) Negative [facility] Ketones Ql (U) Negative [facility] pH (U) 5.0 [pH] [facility] Specific gravity (U) [Rel density] 1.005 [facility] Urobilinogen (U) [Mass/Vol] Negative [facility] Laboratory - Hematology and Cell countsOrdered By: Adilson Cordova on 07-28-2024 Hemoglobin Ql (U) Moderate [facility] - Specimen inform ationOrdered By: Adilson Cordova on 07-28-2024 Clarity (U) Cloudy [facility] Color (U) JHONY [facility] - UrinalysisOrder ed By: Adilson Cordova on 07-28-2024 Nitrite Ql (U) Negative [facility] Protein Ql (U) Trace [facility] No Panel InformationOrdered By: Adilson Cordova on 07-28-[address] [facility] Urine Non-Hemolyzed Blood Non-Hemolyzed [facility] Urgent Care Visit Reporton 0 07-28-2024 Ur[address] Report [facility] [address], [address] [place], [place] [address] OFFICE VISIT Date of Service: 07/28/24 MR#: [id number] Acct: [id number] Name: YUMIKO SINGH Rep #: [id number] : 1965 Provider: ILENE fenton Age/Sex: 58/F Location: [facility] Status: Signed Intake Vital Signs 04/03/23 07:23 [...] Office Urine Glucose Negative Last Edit by Sheir Patino on 07/28/24 13:20 Office Urine Ketones Negative Last Edit by Sheri Patino on 07/28/24 13:20 Off Ur Spec [place] 1.005 Last Edit by Sheri Patino on 07/28/24 13:20 Office Urine pH 5.0 Last Edit by Sheri Patino on 07/28/24 1 (more content not included)... Normal [facility] Urgent Care Visit Reporton 1 06-15-2023 Urgent Care Visit Report [facility] [address], [address] [place] [address] OFFICE VISIT Date of Service: 04/15/24 MR#: [id number] Acct: [id number] Name: YUMIKO SINGH Rep #: [id number] : 1965 Provider: SHAHRAM Escudero Age/Sex: 58/F Location: [facility] Status: Signed Intake Vital Signs 04/03/23 07:23 04/15/24 07:11 Height 5 ft 9 in BP 130/76 H Blood Pressure Location Lt brachial Position Sitting Respiration 16 Pulse 102 H Pulse Source NIBP Temp 98.2 F Temp Source Oral Pulse Oximetry (%) 94 Oxygen Delivery Method room air Intake Visit Reasons: COUGH/CONGESTION Chief Complaint: cough,congest, grn mucus, face pain Log Preparer Required: No Is patient in pain?: No [...] pain x 2 weeks. declines viral testing. [facility] Medical History (Updated 06/13/23 @ 13:34 by [...] Rate: tachycardi (more content not included)... Normal [facility] PROGESTERONE 4317on 01-26-20 24 PROGESTERONE <0.[address] [facility] Comment on above: Order Comment: N Result Comment: Foll icular phase 0.1 - 0.9 Luteal phase 1.8 - 23.9 Ovulation phase 0.1 - 12.0 First trimester 11.0 - 44.3 Second trimester 25.4 - 83.3 Third trimester 58.7 - 214.0 Postmenopausal 0.0 - 0.1 Performed at: - [facility] [id number] [employer] Handler: Dominick De La Rosa PhD, Phone: [phone] Performed By: #### L 310.4942, P4657.9177 #### [facility] [address] [place], [place], [address] CBC W/Diff, Automatedon 01-10 Absolute Lymph 3.15 X10 3/uL Normal 0.83-4.51 [facility] Comment on above: Order Comment: Order Date: 01/23/24 Order Info: 0184- - CBCD Performed By: #### L 500.4100, L501.9985, L500.4050, L506.0400, L501.9520, L100.0100 #### [facility] [address] [place], [address] Absolute Neut 5.8 X10 3/uL Normal 2.0-7.7 [facility] Comment on above: Order Comment: Order Date: 01/23/24 Order Info: 018- - CBCD Performed By: #### L 500.4100, L501.9985, L500.4050, L506.0400, L501.9520, L100.0100 #### [facility] [address] [facility] [place], [address] Basophils/100 WBC (Bld) 0.3 % Normal 0-1 [facility] Comment on above: Order Comment: Order Date: 01/23/24 Order Info: 0184- - CBCD Performed By: #### L 500.4100, L501.9985, L500.4050, L506.0400, L501.9520, L100.0100 #### [facility] [address] [place], [address] Eosinophils/100 WBC (Bld) 0.3 % Normal 0-5 [facility] Comment on above: Order Comment: Order Date: 01/23/24 Order Info: 0184- - CBCD Performed By: #### L 500.4100, L501.9985, L500.4050, L506.0400, L501.9520, L100.0100 #### [facility] [address] [place] [place], [address] Erythrocyte distribution width (RBC) [Ratio] 14.3 % Normal 11.6-14.6 [facility] Comment on above: Order Comment: Order Date: 01/23/24 Order Info: 0184-1 - CBCD Performed By: #### L 500.4100, L501.9985, L500.4050, L506.0400, L501.9520, L100.0100 #### [facility] [address] [place], [address] Hematocrit (Bld) [Volume fraction] 40.1 % Normal 37-47 [facility] Comment on above: Order Comment: Order Date: 01/23/24 Order Info: 0184-1 - CBCD Performed By: #### L 500.4100, L501.9985, L500.4050, L506.0400, L501.9520, L100.0100 #### [facility] [address] [place], [address] Hemoglobin (Bld) [Mass/Vol] 13.0 g/dL Normal 12.0-15.0 [facility] Comment on above: Order Comment: Order Date: 01/23/24 Order Info: 0184-1 - CBCD Performed By: #### L 500.4100, L501.9985, L500.4050, L506.0400, L501.9520, L100.0100 #### [facility] [address] [place], [address] IG% 0.200 Normal 0.0-0.9 [facility] Comment on above: Order Comment: Order Date: 01/23/24 Order Info: 0184-1 - CBCD Result Comment: IG% - Immature Granulocytes (promyelocytes, myelocytes and metamyelocytes) > 1% indicates that a LEFT SHIFT is Present. Performed By: #### L 500.4100, L501.9985, L500.4050, L506.0400, L501.9520, L100.0100 #### [facility] [address] [place], [address] Lymphocytes/100 WBC (Bld) 31.7 % Normal 19-41 [facility] Comment on above: Order Comment: Order Date: 01/23/24 Order Info: 0184- - CBCD Performed By: #### L 500.4100, L501.9985, L500.4050, L506.0400, L501.9520, L100.0100 #### [facility] [address] [place], [address] MCH (RBC) [Entitic mass] 32.2 pg High 27.0-32.0 [facility] Comment on above: Order Comment: Order Date: 01/23/24 Order Info: 018- - CBCD Performed By: #### L 500.4100, L501.9985, L500.4050, L506.0400, L501.9520, L100.0100 #### [facility] [address] [place], [address] MCHC (RBC) [Mass/Vol] 32.4 g/dL Normal 32-36 [facility] Comment on above: Order Comment: Order Date: 01/23/24 Order Info: 018- - CBCD Performed By: #### L 500.4100, L501.9985, L500.4050, L506.0400, L501.9520, L100.0100 #### [facility] [address] [place], [address] MCV (RBC) [Entitic vol] 99.3 fL High 81-99 [facility] Comment on above: Order Comment: Order Date: 01/23/24 Order Info: 018- - CBCD Performed By: #### L 500.4100, L501.9985, L500.4050, L506.0400, L501.9520, L100.0100 #### [facility] [address] [place], [address] Monocytes/100 WBC (Bld) 9.5 % Normal 0-10 [facility] Comment on above: Order Comment: Order Date: 01/23/24 Order Info: 018- - CBCD Performed By: #### L 500.4100, L501.9985, L500.4050, L506.0400, L501.9520, L100.0100 #### [facility] [address] [place], [address] Neutrophils/100 WBC (Bld) 58.0 % Normal 47-70 [facility] Comment on above: Order Comment: Order Date: 01/23/24 Order Info: 0184-1 - CBCD Performed By: #### L 500.4100, L501.9985, L500.4050, L506.0400, L501.9520, L100.0100 #### [facility] [address] [place], [address] Nucleated RBC (Bld) [#/Vol] 0 10*3/uL Normal 0-5 [facility] Comment on above: Order Comment: Order Date: 01/23/24 Order Info: 0184-1 - CBCD Performed By: #### L 500.4100, L501.9985, L500.4050, L506.0400, L501.9520, L100.0100 #### [facility] [address] [place], [address] Platelet mean volume (Bld) [Entitic vol] 9.1 fL Normal 6.2-12.0 [facility] Comment on above: Order Comment: Order Date: 01/23/24 Order Info: 0184-1 - CBCD Performed By: #### L 500.4100, L501.9985, L500.4050, L506.0400, L501.9520, L100.0100 #### [facility] [address] [place], [address] Platelets (Bld) [#/Vol] 343 10*3/uL Normal 150-450 [facility] Comment on above: Order Comment: Order Date: 01/23/24 Order Info: 0184-1 - CBCD Performed By: #### L 500.4100, L501.9985, L500.4050, L506.0400, L501.9520, L100.0100 #### [facility] [address] [place], [address] RBC (Bld) [#/Vol] 4.04 10*6/uL Low 4.2-5.4 [facility] Comment on above: Order Comment: Order Date: 01/23/24 Order Info: 0184-1 - CBCD Performed By: #### L 500.4100, L501.9985, L500.4050, L506.0400, L501.9520, L100.0100 #### [facility] [address] [place], [address] RDW SD 51.9 fl High 35.1-43.9 [facility] Comment on above: Order Comment: Order Date: 01/23/24 Order Info: 0184-1 - CBCD Performed By: #### L 500.4100, L501.9985, L500.4050, L506.0400, L501.9520, L100.0100 #### [facility] [address] [place], [address] WBC (Bld) [#/Vol] 9.9 10*3/uL Normal 4.4-11.0 [facility] Comment on above: Order Comment: Order Date: 01/23/24 Order Info: 0184-1 - CBCD Performed By: #### L 500.4100, L501.9985, L500.4050, L506.0400, L501.9520, L100.0100 #### [facility] [address] [place], [address] Comprehensive Metabolic Prof [facility] 01-25-2024 Albumin [Mass/Vol] 3.6 g/dL Normal 3.2-5.0 [facility] Comment on above: Order Comment: Order Date: 01/23/24 Order Info: 0786-1 - CMP Order Info: 48570-9 - LIPID Order Info: 3015-08 - TSH Order Info: 7 - T4F N Performed By: #### L 500.4100, L501.9985, L500.4050, L506.0400, L501.9520, L100.0100 #### [facility] [address] [place], [address] Albumin/Globulin [Mass ratio] 1.0 {ratio} Normal 0.9-2.4 [facility] Comment on above: Order Comment: Order Date: 01/23/24 Order Info: 86-1 - CMP Order Info: [id number] - LIPID Order Info: 3 - TSH Order Info: 7 - T4F N Performed By: #### L 500.4100, L501.9985, L500.4050, L506.0400, L501.9520, L100.0100 #### [facility] [address] [place], [address] ALK P 62 U/L Normal 45-117 [facility] Comment on above: Order Comment: Order Date: 01/23/24 Order Info: 785-06 - CMP Order Info: [id number] - LIPID Order Info: 3015-08 - TSH Order Info: 3023-12 - T4F N Performed By: #### L 500.4100, L501.9985, L500.4050, L506.0400, L501.9520, L100.0100 #### [facility] [address] [place], [address] ALT [Catalytic activity/Vol] 30 U/L Normal 13-56 [facility] Comment on above: Order Comment: Order Date: 01/23/24 Order Info: 86-1 - CMP Order Info: 91476-5 - LIPID Order Info: 3 - TSH Order Info: 3024-7 - T4F N Performed By: #### L 500.4100, L501.9985, L500.4050, L506.0400, L501.9520, L100.0100 #### [facility] [address] [place], [address] AST [Catalytic activity/Vol] 15 U/L Normal 15-37 [facility] Comment on above: Order Comment: Order Date: 01/23/24 Order Info: 0786-1 - CMP Order Info: [id number] - LIPID Order Info: 3016-3 - TSH Order Info: 3024-7 - T4F N Performed By: #### L 500.4100, L501.9985, L500.4050, L506.0400, L501.9520, L100.0100 #### [facility] [address] [place], [address] Bilirubin [Mass/Vol] 0.80 mg/dL Normal 0.20-1.00 [facility] Comment on above: Order Comment: Order Date: 01/23/24 Order Info: 785- - CMP Order Info: [id number] - LIPID Order Info: 6-3 - TSH Order Info: 3024-7 - T4F N Result Comment: For patients on eltrombopag therapy, use of Dimension [place] TBIL is not recommended. Performed By: #### L 500.4100, L501.9985, L500.4050, L506.0400, L501.9520, L100.0100 #### [facility] [address] [place], [address] BUN/CRE 28.9 RATIO High 10-20 [facility] Comment on above: Order Comment: Order Date: 01/23/24 Order Info: 07-1 - CMP Order Info: [id number] - LIPID Order Info: 3016-3 - TSH Order Info: 3024-7 - T4F N Performed By: #### L 500.4100, L501.9985, L500.4050, L506.0400, L501.9520, L100.0100 #### [facility] [address] [place], [address] CA,Total 9.0 mg/dL Normal 8.5-10.1 [facility] Comment on above: Order Comment: Order Date: 01/23/24 Order Info: 86-1 - CMP Order Info: 82313-9 - LIPID Order Info: 3015-3 - TSH Order Info: 3024-7 - T4F N Performed By: #### L 500.4100, L501.9985, L500.4050, L506.0400, L501.9520, L100.0100 #### [facility] [address] [place], [address] Chloride [Moles/Vol] 109 mmol/L High 98-107 [facility] Comment on above: Order Comment: Order Date: 01/23/24 Order Info: 86-1 - CMP Order Info: [id number] - LIPID Order Info: 3 - TSH Order Info: 3024-7 - T4F N Performed By: #### L 500.4100, L501.9985, L500.4050, L506.0400, L501.9520, L100.0100 #### [facility] [address] [place], [address] CO2 [Moles/Vol] 26.0 mmol/L Normal 21.0-32.0 [facility] Comment on above: Order Comment: Order Date: 01/23/24 Order Info: 86-1 - CMP Order Info: [id number] - LIPID Order Info: 3015-3 - TSH Order Info: 3024-7 - T4F N Performed By: #### L 500.4100, L501.9985, L500.4050, L506.0400, L501.9520, L100.0100 #### [facility] [address] [place], [address] Creatinine [Mass/Vol] 0.90 mg/dL Normal 0.55-1.02 [facility] Comment on above: Order Comment: Order Date: 01/23/24 Order Info: 86-1 - CMP Order Info: [id number] - LIPID Order Info: [id number] - TSH Order Info: 3024-7 - T4F N Result Comment: The validity of the calculated GFR GFRAA in patients over 70 years has not been determined. Clinical correlation is essential. Performed By: #### L 500.4100, L501.9985, L500.4050, L506.0400, L501.9520, L100.0100 #### [facility] [address] [place], [address] EST GFR - AA 83 mL/min Normal >60 [facility] Comment on above: Order Comment: Order Date: 01/23/24 Order Info: 785- - CMP Order Info: [id number] - LIPID Order Info: [id number] - TSH Order Info: 3023-12 T4F N Result Comment: Afri can [place] GFR Calc Performed By: #### L 500.4100, L501.9985, L500.4050, L506.0400, L501.9520, L100.0100 #### [facility] [address] [place], [address] GAP 7 Normal 5-15 [facility] Comment on above: Order Comment: Order Date: 01/23/24 Order Info: [id number] - CMP Order Info: - LIPID Order Info: [id number] - TSH Order Info: 3023-12 T4F N Performed By: #### L 500.4100, L501.9985, L500.4050, L506.0400, L501.9520, L100.0100 #### [facility] [address] [place], [address] GFR/1.73 sq M.predicted among non-blacks MDRD (S/P/Bld) [Vol rate/Area] 68 mL/min/{1.73_m2} Normal >60 [facility] Comment on above: Order Comment: Order Date: 01/23/24 Order Info: [id number] - CMP Order Info: [id number] - LIPID Order Info: [id number] - TSH Order Info: 3023-12 T4F N Result Comment: Non- GFR Calc Performed By: #### L 500.4100, L501.9985, L500.4050, L506.0400, L501.9520, L100.0100 #### [facility] [address] [place], [address] Globulin (S) [Mass/Vol] 3.6 g/dL Normal 2.2-4.2 [facility] Comment on above: Order Comment: Order Date: 01/23/24 Order Info: 86-1 - CMP Order Info: - LIPID Order Info: [id number] - TSH Order Info: 3024-7 - T4F N Performed By: #### L 500.4100, L501.9985, L500.4050, L506.0400, L501.9520, L100.0100 #### [facility] [address] [place], [address] Glucose [Mass/Vol] 93 mg/dL Normal 74-106 [facility] Comment on above: Order Comment: Order Date: 01/23/24 Order Info: [id number] - CMP Order Info: - LIPID Order Info: 3 - TSH Order Info: 3024-7 - T4F N Performed By: #### L 500.4100, L501.9985, L500.4050, L506.0400, L501.9520, L100.0100 #### [facility] [address] [place], [address] Potassium [Moles/Vol] 3.6 mmol/L Normal 3.5-5.1 [facility] Comment on above: Order Comment: Order Date: 01/23/24 Order Info: 785-1 - CMP Order Info: [id number] - LIPID Order Info: [id number] - TSH Order Info: 3024-7 - T4F N Performed By: #### L 500.4100, L501.9985, L500.4050, L506.0400, L501.9520, L100.0100 #### [facility] [address] [place], [address] Sodium [Moles/Vol] 142 mmol/L Normal 136-145 [facility] Comment on above: Order Comment: Order Date: 01/23/24 Order Info: [id number] - CMP Order Info: [id number] - LIPID Order Info: [id number] - TSH Order Info: 3024-7 - T4F N Performed By: #### L 500.4100, L501.9985, L500.4050, L506.0400, L501.9520, L100.0100 #### [facility] [address] [place], [address] T PROT 7.2 g/dL Normal 6.4-8.2 [facility] Comment on above: Order Comment: Order Date: 01/23/24 Order Info: [id number] - CMP Order Info: [id number] - LIPID Order Info: [id number] - TSH Order Info: 3024-7 - T4F N Performed By: #### L 500.4100, L501.9985, L500.4050, L506.0400, L501.9520, L100.0100 #### [facility] [address] [place], [address] Urea nitrogen [Mass/Vol] 26 mg/dL High 7-18 [facility] Comment on above: Order Comment: Order Date: 01/23/24 Order Info: [id number] - CMP Order Info: [id number] - LIPID Order Info: [id number] - TSH Order Info: 3024-7 - T4F N Performed By: #### L 500.4100, L501.9985, L500.4050, L506.0400, L501.9520, L100.0100 #### [facility] [address] [place], [address] Estradiolon 01-25-2024 ESTRADIOL < 11.[address] [facility] Comment on above: Order Comment: Order Date: 01/23/24 Order Info: [id number] - CMP Order Info: [id number] - LIPID Order Info: [id number] - TSH Order Info: 3023-12 - T4F N Result Comment: NORM AL REFERENCE RANGES FEMALE [...] CONCENTRATION. Performed By: #### L 801.2600, L3300.1750 #### [facility] [address] [facility] [place], [place], [address] Hemoglobin A1con 01-25-2024 HbA1c (Bld) [Mass fraction] 5.2 % Normal 3.8-5.6 [facility] Comment on above: Order Comment: Order Date: 01/23/24Order Info: [id number] - A1C Result Comment: Norm al < 5.7 % Prediabetic 5.7 - 6.4 % Diabetic >or= 6.5 % Please note range changes. Performed By: #### M 100.2200 #### [facility] [address] [facility] [place], [place], [id number] Lipid Profileon 01-25-2024 Cholesterol [Mass/Vol] 194 mg/dL Normal 200 [facility] Comment on above: Order Comment: Order Date: 01/23/24 Order Info: [id number] - CMP Order Info: [id number] - LIPID Order Info: [id number] - TSH Order Info: 3023-12 - T4F N Result Comment: <200 mg/dL Desirable 200-240 mg/dL Borderline >240 mg/dL High Risk Performed By: #### L 500.4100, L501.9985, L500.4050, L506.0400, L501.9520, L100.0100 #### [facility] [address] [place], [address] Cholesterol in HDL [Mass/Vol] 54 mg/dL Normal [facility] Comment on above: Order Comment: Order Date: 01/23/24 Order Info: 07- - CMP Order Info: - LIPID Order Info: [id number] - TSH Order Info: 7 - T4F N Result Comment: The drugs N-Acetylcysteine and Metamizole may falsely depress this assay. Reference Range HDL <40 mg/dL Low HDL Cholesterol HDL >or= 60 mg/dL High HDL Cholesterol Performed By: #### L 500.4100, L501.9985, L500.4050, L506.0400, L501.9520, L100.0100 #### [facility] [address] [place], [address] Cholesterol in LDL [Mass/Vol] 119 mg/dL Normal 0-130 [facility] Comment on above: Order Comment: Order Date: 01/23/24 Order Info: [id number] - CMP Order Info: - LIPID Order Info: 3 - TSH Order Info: 7 - T4F N Performed By: #### L 500.4100, L501.9985, L500.4050, L506.0400, L501.9520, L100.0100 #### [facility] [address] [place], [address] Cholesterol in VLDL [Mass/Vol] 21 mg/dL Normal 5-40 [facility] Comment on above: Order Comment: Order Date: 01/23/24 Order Info: [id number] - CMP Order Info: - LIPID Order Info: 3 - TSH Order Info: 7 - T4F N Performed By: #### L 500.4100, L501.9985, L500.4050, L506.0400, L501.9520, L100.0100 #### [facility] [address] [place], [address] Triglyceride [Mass/Vol] 103 mg/dL Normal [facility] Comment on above: Order Comment: Order Date: 01/23/24 Order Info: [id number] - CMP Order Info: [id number] - LIPID Order Info: [id number] - TSH Order Info: 302-7 - T4F N Result Comment: The drugs N-Acetylcysteine and Metamizole may falsely depress this assay. Serum Triglycerides Reference Interval Normal <150 mg/dL Borderline high 150 - 199 mg/dL High 200 - 499 mg/dL Very High > or = 500 mg/dL Performed By: #### L 500.4100, L501.9985, L500.4050, L506.0400, L501.9520, L100.0100 #### [facility] [address] [facility] [place], [address] T4 Free Directon 01-25-2024 T4 FREE DIRECT 0.80 ng/dL Normal 0.76-1.46 [facility] Comment on above: Order Comment: Order Date: 01/23/24Order Info: [id number]- - CMPOrder Info: [id number] - LIPIDOrder Info: [id number] - TSHOrder Info: 3027 - T4FN Performed By: #### M 100.2200 #### [facility] [address] [place], [address] Thyroid Stim Hormone (TSH)on 01-25-2024 TSH 1.560 uIU/mL Normal 0.358-3.[address] [facility] Comment on above: Order Comment: Order Date: 01/23/24Order Info: 0786- - CMPOrder Info: [id number] - LIPIDOrder Info: [id number] - TSHOrder Info: 302-7 - T4FN Performed By: #### M 100.2200 #### [facility] [address] [facility] [place], [address] L/S Spine Min 4 Viewson - L/S Spine Min 4 Views [facility] Services [address] [place] [address] L/S Spine Min 4 Views MR#: [id number] Acct: [id number] Name: YUMIKO SINGH Rep #: [id number] : 1965 F 58 From: Ba Hernandez MD PCP: Dr. Denise Cheng MD Status: REG CLI Study: L/S Spine Min 4 Views Date of Exam: 11/29/23 Exam# [id number] Ordering Dr: Wagner Whitten DPLashae [id number] STUDY: X-RAY - LUMBAR SPINE REASON FOR [...] Signed: Ba Hernandez MD at 14:47 EDT , CC: FREMEAN Whitten; Dr. Denise Cheng MD [place] Frame Builder: Signed Normal [facility] Basophil percentageOrdered B y: Ciera Stathopoulos on 06-09-2023 Bilirubin [Mass/Vol] 0.80 mg/dL 0.20-1.00 [facility] Comment on above: For patients on eltr ombopag therapy, use of Dimension [place] TBIL is not recommended. Chloride [Moles/Vol] 107 mmol/L 98-107 [facility] Cholesterol [Mass/Vol] 185 mg/dL <200 [facility] Comment on above: <200 mg/dL Desirable 200-240 mg/dL Borderline >240 mg/dL High Risk Glucose [Mass/Vol] 108 mg/dL 74-106 [facility] Comment on above: Fasting Glucose resu lt from 100 to 125 mg/dL suggests IMPAIRED HOMEOSTASIS per A.D.A. criteria. Potassium [Moles/Vol] 4.1 mmol/L 3.5-5.1 [facility] Protein [Mass/Vol] 7.1 g/dL 6.4-8.2 [facility] Sodium [Moles/Vol] 141 mmol/L 136-145 [facility] Triglyceride [Mass/Vol] 441 mg/dL <199 [facility] [...] 06-09-2023 ALP [Catalytic activity/Vol] 70 U/L 45-117 [facility] ALT [Catalytic activity/Vol] 44 U/L 13-56 [facility] CO2 [Moles/Vol] 28.0 mmol/L 21.0-32.0 [facility] Globulin (S) [Mass/Vol] 3.3 g/dL 2.2-4.2 [facility] Urea nitrogen/Creatinine [Mass ratio] 27.5 mg/mg 10-20 [facility] No Panel InformationOrdered By: Ciera Granados on 06-09-2023 Estimated GFR (MDRD) Amer 100 mL/min >60 [facility] Comment on above: GFR Calc Estimated GFR (MDRD) Non-Af Amer 83 mL/min >60 [facility] Comment on above: Non- GFR Calc Vitamin D 25-Hydroxy 34.9 ng/mL [facility] Comment on above: Vitamin D 25(OH) Sta tus Range Deficiency <20 ng/mL (50nmol/L) Insufficiency 20 - 30 ng/mL (50 - 75 nmol/L) Sufficiency 30 - 100 ng/mL (75 - 250 nmol/L) Toxicity >100 ng/mL (>250 nmol/L) Serum or plasma albumin hannah urement (mass/volume)Ordered By: Ciera Bates on 06-09-2023 Albumin [Mass/Vol] 3.8 g/dL 3.2-5.0 [facility] Serum or plasma albumin/glob ulin mass ratioOrdered By: [facility] on 06-09-2023 Albumin/Globulin [Mass ratio] 1.2 {ratio} 0.9-2.4 [facility] Serum or plasma calcium hannah urement (mass/volume)Or[facility]: [facility]-09-2023 Calcium [Mass/Vol] 8.7 mg/dL 8.5-10.1 [facility] Serum or plasma cholesterol in HDL measurement (mass/volume)Ordered By: [facility] on 06-09-2023 Cholesterol in HDL [Mass/Vol] 29 mg/dL >40 [facility] Comment on above: The drugs N-Acetylcy steine and Metamizole may falsely depress this assay. Reference Range HDL <40 mg/dL Low HDL Cholesterol HDL >or= 60 mg/dL High HDL Cholesterol Serum or plasma cholesterol in VLDL measurement (mass/volume)Ordered By: [facility] on 06-09-2023 Cholesterol in VLDL [Mass/Vol] TNP [facility] Comment on above: Test not performed Serum or plasma creatinine m easurement (mass/volume)Or[facility]: [facility] 06-09-2023 Creatinine [Mass/Vol] 0.76 mg/dL 0.55-1.02 [facility] Comment on above: The validity of the calculated GFR & GFRAA in patients over 70 years has not been determined. Clinical correlation is essential. Serum or plasma low density lipoprotein (LDL) cholesterol measurement (mass/volume)Ordered By: [facility] on 06-09-2023 Cholesterol in LDL [Mass/Vol] TNP [facility] Comment on above: Test not performed Serum or plasma urea nitroge n measurement (mass/volume)Ordered By: Ciera Granados on 06-09-2023 Urea nitrogen [Mass/Vol] 21 mg/dL 7- [facility] Thin prep Papanicolaou smear with manual screeningOrdered By: Ciera Granados on 06-09-2023 Thin prep Papanicolaou smear with manual screening 35 U/L [facility] Thin prep Papanicolaou smear with manual screening 6 5-15 [facility] Whole blood hemoglobin A1c/t otal hemoglobin ratio (mass fraction)Ordered By: Ciera Granados on 06-09-2023 HbA1c (Bld) [Mass fraction] 5.1 % 3.8-5.6 [facility] Comment on above: Normal < 5.7 % Predi abetic 5.7 - 6.4 % Diabetic >or= 6.5 % Please note range changes. No Panel Informationon 04-03 POC SARS CoV-2 Antigen Negative [facility] CNOVon 02-01-2023 CNOV Office Visit (PODIWS ) -- YUMIKO SINGH ([id number]) 1965 F Date Time Provider Department 02/01/23 [...] for c (more content not included)... Normal [facility] XR FOOT 3V AP/LAT/OBL BILon 02-01-2023 XR [...] tissue swelling. IMPRESSION: Bilateral plantar calcaneal spurs [place] Frame Builder: PSCB Transcribe Date/Time: Feb 04 2023 6:38P Dictated by : HECTOR DOMÍNGUEZ MD This examination was interpreted and the report reviewed and electronically signed by: HECTOR DOMÍNGUEZ MD on Feb 04 2023 6:39PM EST [id number] Normal [facility] XR FOOT GENERAL 3V AP/LAT/OB L BILATERALon 02-01-2023 [facility] Absolute lymphocyte countOrd ered By: Cecilio Lopez on 01-12-2023 Lymphocytes Auto (Unsp spec) [#/Vol] 2.95 10*3/uL 0.83-4.51 [facility] Basophil percentageOrdered B y: Cecilio Lopez on 01-12-2023 Basophils/100 WBC (Bld) 1.0 % 0-1 [facility] Bilirubin [Mass/Vol] 1.10 mg/dL 0.20-1.00 [facility] Comment on above: For patients on eltr ombopag therapy, use of Dimension [place] TBIL is not recommended. Chloride [Moles/Vol] 106 mmol/L 98-107 [facility] Eosinophils/100 WBC (Bld) 3.6 % 0-5 [facility] Glucose [Mass/Vol] 103 mg/dL 74-106 [facility] Comment on above: Fasting Glucose resu lt from 100 to 125 mg/dL suggests IMPAIRED HOMEOSTASIS per A.D.A. criteria. LDH [Catalytic activity/Vol] 165 U/L 84-246 [facility] Neutrophils (Bld) [#/Vol] 3.3 10*3/uL 2.0-7.7 [facility] Neutrophils/100 WBC (Bld) 45.2 % 47-70 [facility] Potassium [Moles/Vol] 3.7 mmol/L 3.5-5.1 [facility] Protein [Mass/Vol] 7.2 g/dL 6.4-8.2 [facility] Sodium [Moles/Vol] 142 mmol/L 136-145 [facility] WBC (Bld) [#/Vol] 7.2 10*3/uL 4.4-11.0 [facility] Blood erythrocytes count (nu mber/volume)Ordered By: Cecilio Lopez on 01-12-2023 RBC (Bld) [#/Vol] 4.13 10*6/uL 4.2-5.4 [facility] Blood hemoglobin measurement (mass/volume)Ordered By: Cecilio Lopez on 01-12-2023 Hemoglobin (Bld) [Mass/Vol] 13.7 g/dL 12.0-15.0 [facility] Blood lymphocytes/100 leukoc ytesOrdered By: Cecilio Lopez on 01-12-2023 Lymphocytes/100 WBC (Bld) 40.8 % 19-41 [facility] Blood monocytes/100 leukocyt esOrdered By: Cecilio Lopez on 01-12-2023 Monocytes/100 WBC (Bld) 9.3 % 0-10 [facility] Blood platelet mean volumeOr dered By: Cecilio Lopez on 01-12-2023 Platelet mean volume (Bld) [Entitic vol] 8.9 fL 6.2-12.0 [facility] Determination of erythrocyte mean corpuscular volume (MCV)Ordered By: Cecilio Lopez on 01-12-2023 MCV (RBC) [Entitic vol] 96.9 fL 81-99 [facility] Hematocrit Auto (Bld) [Volum e fraction]Ordered By: Cecilio Lopez on 01-12-2023 Hematocrit (Bld) [Volume fraction] 40.0 % 37-47 [facility] - Chemistry and C hemistry - challengeOrdered By: Cecilio Lopez on 01-12-2023 ALP [Catalytic activity/Vol] 67 U/L 45-117 [facility] ALT [Catalytic activity/Vol] 42 U/L 13-56 [facility] CO2 [Moles/Vol] 29.0 mmol/L 21.0-32.0 [facility] Globulin (S) [Mass/Vol] 3.4 g/dL 2.2-4.2 [facility] Urea nitrogen/Creatinine [Mass ratio] 15.9 mg/mg 10-20 [facility] - Hematology and Cell countsOrdered By: Cecilio Lopez on 01-12-2023 Erythrocyte distribution width (RBC) [Entitic vol] 49.1 fL 35.1-43.9 [facility] Erythrocyte distribution width (RBC) [Ratio] 13.7 % 11.6-14.6 [facility] Immature granulocytes/100 WBC (Bld) 0.100 % 0.0-0.9 [facility] Comment on above: IG% - Immature Granu locytes (promyelocytes, myelocytes and metamyelocytes) > 1% indicates that a LEFT SHIFT is Present. MCH (RBC) [Entitic mass] 33.2 pg 27.0-32.0 [facility] Nucleated RBC/100 WBC (Bld) [Ratio] 0 % 0-5 [facility] MCHC Auto (RBC) [Mass/Vol]Or dered By: Cecilio Lopez on 01-12-2023 MCHC (RBC) [Mass/Vol] 34.3 g/dL 32-36 [facility] No Panel InformationOrdered By: Cecilio Lopez on 01-12-2023 Estimated GFR (MDRD) Amer 85 mL/min >60 [facility] Comment on above: GFR Calc Estimated GFR (MDRD) Non-Af Amer 70 mL/min >60 [facility] Comment on above: Non- GFR Calc Platelets bldOrdered By: Damion Lopez on 01-12-2023 Platelets (Bld) [#/Vol] 296 10*3/uL 150-450 [facility] Serum or plasma albumin hannah urement (mass/volume)Ordered By: Cecilio Lopez on 01-12-2023 Albumin [Mass/Vol] 3.8 g/dL 3.2-5.0 [facility] Serum or plasma albumin/glob ulin mass ratioOrdered By: Cecilio Lopez on 01-12-2023 Albumin/Globulin [Mass ratio] 1.1 {ratio} 0.9-2.4 [facility] Serum or plasma calcium hannah urement (mass/volume)Ordered By: Cecilio Lopez on 01-12-2023 Calcium [Mass/Vol] 9.3 mg/dL 8.5-10.1 [facility] Serum or plasma creatinine m easurement (mass/volume)Ordered By: Cecilio Lopez on 01-12-2023 Creatinine [Mass/Vol] 0.88 mg/dL 0.55-1.02 [facility] Comment on above: The validity of the calculated GFR & GFRAA in patients over 70 years has not been determined. Clinical correlation is essential. Serum or plasma urea nitroge n measurement (mass/volume)Ordered By: Cecilio Lopez on 01-12-2023 Urea nitrogen [Mass/Vol] 14 mg/dL 7-18 [facility] Thin prep Papanicolaou smear with manual screeningOrdered By: [facility] on 01-12-2023 Thin prep Papanicolaou smear with manual screening 27 U/L 15-37 [facility] Thin prep Papanicolaou smear with manual screening 7 5-15 [facility] Absolute lymphocyte countOrd ered By: Dr. Cheng on 11-09-2022 Lymphocytes Auto (Unsp spec) [#/Vol] 2.89 10*3/uL 0.83-4.51 [facility] Basophil percentageOrdered B y: Dr. Cheng on 11-09-2022 Basophils/100 WBC (Bld) 0.9 % 0-1 [facility] Bilirubin [Mass/Vol] 0.70 mg/dL 0.20-1.00 [facility] Comment on above: For patients on eltr ombopag therapy, use of Dimension [place] TBIL is not recommended. Chloride [Moles/Vol] 107 mmol/L 98-107 [facility] Eosinophils/100 WBC (Bld) 2.8 % 0-5 [facility] Glucose [Mass/Vol] 109 mg/dL 74-106 [facility] Comment on above: Fasting Glucose resu lt from 100 to 125 mg/dL suggests IMPAIRED HOMEOSTASIS per A.D.A. criteria. Neutrophils (Bld) [#/Vol] 2.9 10*3/uL 2.0-7.7 [facility] Neutrophils/100 WBC (Bld) 42.5 % 47-70 [facility] Potassium [Moles/Vol] 4.2 mmol/L 3.5-5.1 [facility] Protein [Mass/Vol] 7.3 g/dL 6.4-8.2 [facility] Sodium [Moles/Vol] 139 mmol/L 136-145 [facility] WBC (Bld) [#/Vol] 6.8 10*3/uL 4.4-11.0 [facility] Blood erythrocytes count (nu mber/volume)Ordered By: Dr. Cheng on 11-09-2022 RBC (Bld) [#/Vol] 4.36 10*6/uL 4.2-5.4 [facility] Blood hemoglobin measurement (mass/volume)Ordered By: Dr. Cheng on 11-09-2022 Hemoglobin (Bld) [Mass/Vol] 13.8 g/dL 12.0-15.0 [facility] Blood lymphocytes/100 leukoc ytesOrdered By: Dr. Cheng on 11-09-2022 Lymphocytes/100 WBC (Bld) 42.5 % 19-41 [facility] Blood monocytes/100 leukocyt esOrdered By: Dr. Cheng on 11-09-2022 Monocytes/100 WBC (Bld) 11.2 % 0-10 [facility] Blood platelet mean volumeOr dered By: Dr. Cheng on 11-09-2022 Platelet mean volume (Bld) [Entitic vol] 9.2 fL 6.2-12.0 [facility] Determination of erythrocyte mean corpuscular volume (MCV)Ordered By: Dr. Cheng on 11-09-2022 MCV (RBC) [Entitic vol] 95.4 fL 81-99 [facility] Hematocrit Auto (Bld) [Volum e fraction]Ordered By: Dr. Cheng on 11-09-2022 Hematocrit (Bld) [Volume fraction] 41.6 % 37-47 [facility] - Chemistry and C hemistry - challengeOrdered By: Dr. Cheng on 11-09-2022 Albumin [Mass/Vol] 3.9 g/dL 2.9-4.4 [facility] ALP [Catalytic activity/Vol] 68 U/L 45-117 [facility] ALT [Catalytic activity/Vol] 42 U/L 13-56 [facility] CO2 [Moles/Vol] 26.0 mmol/L 21.0-32.0 [facility] Globulin (S) [Mass/Vol] 3.3 g/dL 2.2-4.2 [facility] Urea nitrogen/Creatinine [Mass ratio] 30.0 mg/mg 10-20 [facility] - Hematology and Cell countsOrdered By: Dr. Cheng on 11-09-2022 Erythrocyte distribution width (RBC) [Entitic vol] 44.7 fL 35.1-43.9 [facility] Erythrocyte distribution width (RBC) [Ratio] 12.8 % 11.6-14.6 [facility] Immature granulocytes/100 WBC (Bld) 0.100 % 0.0-0.9 [facility] Comment on above: IG% - Immature Granu locytes (promyelocytes, myelocytes and metamyelocytes) > 1% indicates that a LEFT SHIFT is Present. MCH (RBC) [Entitic mass] 31.7 pg 27.0-32.0 [facility] Nucleated RBC/100 WBC (Bld) [Ratio] 0 % 0-5 [facility] MCHC Auto (RBC) [Mass/Vol]Or dered By: Dr. Cheng on 11-09-2022 MCHC (RBC) [Mass/Vol] 33.2 g/dL 32-36 [facility] No Panel InformationOrdered By: Dr. Cheng on 11-09-2022 Addendum Document Comment . [facility] Comment on above: The SPE pattern appe ars unremarkable. Evidence ofmonoclonal protein is not apparent.Performed at: [facility] [id number] Director: Dominick De La Rosa PhD, Phone: [phone] Qnuqn-8-Deartlzcm 0.2 g/dL 0.0-0.4 [facility] Terod-4-Tbyqnphbe 0.6 g/dL 0.4-1.0 [facility] Estimated GFR (MDRD) Amer 87 mL/min >60 [facility] Comment on above: GFR Calc Estimated GFR (MDRD) Non-Af Amer 72 mL/min >60 [facility] Comment on above: Non- GFR Calc Gamma Globulins 1.2 g/dL 0.4-1.8 [facility] Platelets bldOrdered By: Dr. Cheng on 11-09-2022 Platelets (Bld) [#/Vol] 312 10*3/uL 150-450 [facility] Protein Fractions Elph [Inte rp]Ordered By: Dr. Cheng on 11-09-2022 Protein Fractions [Interp] Comment . [facility] Comment on above: Protein electrophore sis scan will follow via computer,mail, or code machine operator delivery. Serum albumin to globulin ra marilyn by protein electrophoresisOrdered By: Dr. Cheng on 11-09-2022 Albumin/Globulin Elph [Mass ratio] 1.3 0.7-1.7 [facility] Serum globulin measurement ( mass/volume)Ordered By: Dr. Cheng on 11-09-2022 Globulin (S) [Mass/Vol] 3.0 g/dL 2.2-3.9 [facility] Serum or plasma C reactive p rotein measurement (mass/volume)Ordered By: Dr. Cheng on 11-09-2022 CRP [Mass/Vol] mg/L 0.0-3.0 [facility] Comment on above: C-Reactive Protein ( CRP) provides useful information for thediagnosis, therapy and monitoring of inflammatory processesand associated diseases. For the evaluation of Relative Riskfor Cardiovascular Disease, a High Sensitivity CRP (HSCRP)should be ordered. Serum or plasma albumin hannah urement (mass/volume)Ordered By: Dr. Cheng on 11-09-2022 Albumin [Mass/Vol] 4.0 g/dL 3.2-5.0 [facility] Serum or plasma albumin/glob ulin mass ratioOrdered By: Dr. Cheng on 11-09-2022 Albumin/Globulin [Mass ratio] 1.2 {ratio} 0.9-2.4 [facility] Serum or plasma beta globuli n measurement by electrophoresis (mass/volume)Ordered By: Dr. Cheng on 11-09-2022 Beta globulin Elph [Mass/Vol] 1.1 g/dL 0.7-1.3 [facility] Serum or plasma calcium hannah urement (mass/volume)Ordered By: Dr. Cheng on 11-09-2022 Calcium [Mass/Vol] 9.4 mg/dL 8.5-10.1 [facility] Serum or plasma creatinine m easurement (mass/volume)Ordered By: Dr. Cheng on 11-09-2022 Creatinine [Mass/Vol] 0.87 mg/dL 0.55-1.02 [facility] Comment on above: The validity of the calculated GFR & GFRAA in patients over 70 years has not been determined. Clinical correlation is essential. Serum or plasma urea nitroge n measurement (mass/volume)Ordered By: Dr. Cheng on 11-09-2022 Urea nitrogen [Mass/Vol] 26 mg/dL 7-18 [facility] Thin prep Papanicolaou smear with manual screeningOrdered By: Dr. Cheng on 11-09-2022 Thin prep Papanicolaou smear with manual screening 28 U/L 15-37 [facility] Thin prep Papanicolaou smear with manual screening 6 5-15 [facility] Thin prep Papanicolaou smear with manual screening See comment [facility] Comment on above: Result: Not Observed Total protein bloodOrdered B y: Dr. Cheng on 11-09-2022 Protein [Mass/Vol] 6.9 g/dL 6.0-8.5 [facility] Absolute lymphocyte counton 01-13-2022 Lymphocytes Auto (Unsp spec) [#/Vol] 2.39 10*3/uL 0.83-4.51 [facility] Work Phone: Basophil percentageon 2021 Basophils/100 WBC (Bld) 0.7 % 0-1 [facility] Work Phone: Bilirubin [Mass/Vol] 0.60 mg/dL 0.20-1.00 [facility] Work Phone: Comment on above: For patients on eltr ombopag therapy, use of Dimension [place] TBIL is not recommended. Chloride [Moles/Vol] 110 mmol/L 98-107 [facility] Work Phone: Eosinophils/100 WBC (Bld) 3.0 % 0-5 [facility] Work Phone: Glucose [Mass/Vol] 104 mg/dL 74-106 [facility] Work Phone: Comment on above: Fasting Glucose resu lt from 100 to 125 mg/dL suggests IMPAIRED HOMEOSTASIS per A.D.A. criteria. Neutrophils (Bld) [#/Vol] 2.3 10*3/uL 2.0-7.7 [facility] Work Phone: Neutrophils/100 WBC (Bld) 42.2 % 47-70 [facility] Work Phone: Potassium [Moles/Vol] 4.2 mmol/L 3.5-5.1 [facility] Work Phone: Protein [Mass/Vol] 6.8 g/dL 6.4-8.2 [facility] Work Phone: Sodium [Moles/Vol] 142 mmol/L 136-145 [facility] Work Phone: WBC (Bld) [#/Vol] 5.4 10*3/uL 4.4-11.0 [facility] Work Phone: [phone] Blood erythrocytes count (nu mber/volume)on 01-13-2022 RBC (Bld) [#/Vol] 3.81 10*6/uL 4.2-5.4 [facility] Work Phone: Blood hemoglobin measurement (mass/volume)on 01-13-2022 Hemoglobin (Bld) [Mass/Vol] 12.0 g/dL 12.0-15.0 [facility] Work Phone: Blood lymphocytes/100 leukoc yteson 01-13-2022 Lymphocytes/100 WBC (Bld) 44.1 % 19-41 [facility] Work Phone: [phone] Blood monocytes/100 leukocyt eson 01-13-2022 Monocytes/100 WBC (Bld) 9.8 % 0-10 [facility] Work Phone: Blood platelet mean volumeon 01-13-2022 Platelet mean volume (Bld) [Entitic vol] 9.2 fL 6.2-12.0 [facility] Work Phone: [phone] Determination of erythrocyte mean corpuscular volume (MCV)on 01-13-2022 MCV (RBC) [Entitic vol] 96.3 fL 81-99 [facility] Work Phone: Hematocrit Auto (Bld) [Volum e fraction]on 01-13-2022 Hematocrit (Bld) [Volume fraction] 36.7 % 37-47 [facility] Work Phone: Laboratory - Chemistry and C hemistry - challengeon 01-13-2022 ALP [Catalytic activity/Vol] 55 U/L 45-117 [facility] Work Phone: ALT [Catalytic activity/Vol] 52 U/L 13-56 [facility] Work Phone: CO2 [Moles/Vol] 30.0 mmol/L 21.0-32.0 [facility] Work Phone: Globulin (S) [Mass/Vol] 3.2 g/dL 2.2-4.2 [facility] Work Phone: Urea nitrogen/Creatinine [Mass ratio] 24.3 mg/mg 10-20 [facility] Work Phone: Laboratory - Hematology and Cell countson 01-13-2022 Erythrocyte distribution width (RBC) [Entitic vol] 43.4 fL 35.1-43.9 [facility] Work Phone: Erythrocyte distribution width (RBC) [Ratio] 12.3 % 11.6-14.6 [facility] Work Phone: Immature granulocytes/100 WBC (Bld) 0.200 % 0.0-0.9 [facility] Work Phone: Comment on above: IG% - Immature Granu locytes (promyelocytes, myelocytes and metamyelocytes) > 1% indicates that a LEFT SHIFT is Present. MCH (RBC) [Entitic mass] 31.5 pg 27.0-32.0 [facility] Work Phone: Nucleated RBC/100 WBC (Bld) [Ratio] 0 % 0-5 [facility] Work Phone: MCHC Auto (RBC) [Mass/Vol]on 01-13-2022 MCHC (RBC) [Mass/Vol] 32.7 g/dL 32-36 [facility] Work Phone: No Panel Informationon 01-13 Estimated GFR (MDRD) Amer 87 mL/min >60 [facility] Work Phone: Comment on above: GFR Calc Estimated GFR (MDRD) Non-Af Amer 72 mL/min >60 [facility] Work Phone: Comment on above: Non- GFR Calc Platelets bldon 01-13-2022 Platelets (Bld) [#/Vol] 238 10*3/uL 150-450 [facility] Work Phone: Serum or plasma albumin hannah urement (mass/volume)on 01-13-2022 Albumin [Mass/Vol] 3.6 g/dL 3.2-5.0 [facility] Work Phone: Serum or plasma albumin/glob ulin mass ratioon 01-13-2022 Albumin/Globulin [Mass ratio] 1.1 {ratio} 0.9-2.4 [facility] Work Phone: Serum or plasma calcium hannah urement (mass/volume)on 01-13-2022 Calcium [Mass/Vol] 8.8 mg/dL 8.5-10.1 [facility] Work Phone: Serum or plasma creatinine m easurement (mass/volume)on 01-13-2022 Creatinine [Mass/Vol] 0.86 mg/dL 0.55-1.02 [facility] Work Phone: Comment on above: The validity of the calculated GFR & GFRAA in patients over 70 years has not been determined. Clinical correlation is essential. Serum or plasma urea nitroge n measurement (mass/volume)on 01-13-2022 Urea nitrogen [Mass/Vol] 21 mg/dL 7-18 [facility] Work Phone: Thin prep Papanicolaou smear with manual screeningon 01-13-2022 Thin prep Papanicolaou smear with manual screening 30 U/L 15-37 [facility] Work Phone: Thin prep Papanicolaou smear with manual screening 2 5-15 [facility] Work Phone: Thin prep Papanicolaou smear with manual screening 158 U/L 84-246 [facility] Work Phone: Absolute lymphocyte counton 10-06-2021 Lymphocytes Auto (Unsp spec) [#/Vol] 2.55 10*3/uL 0.83-4.51 [facility] Work Phone: Basophil percentageon 2021 Basophils/100 WBC (Bld) 0.9 % 0-1 [facility] Work Phone: Bilirubin [Mass/Vol] 0.50 mg/dL 0.20-1.00 [facility] Work Phone: Comment on above: For patients on eltr ombopag therapy, use of Dimension [place] TBIL is not recommended. Chloride [Moles/Vol] 107 mmol/L 98-107 [facility] Work Phone: [phone] Eosinophils/100 WBC (Bld) 2.3 % 0-5 [facility] Work Phone: Glucose [Mass/Vol] 99 mg/dL 74-106 [facility] Work Phone: Neutrophils (Bld) [#/Vol] 2.9 10*3/uL 2.0-7.7 [facility] Work Phone: Neutrophils/100 WBC (Bld) 45.7 % 47-70 [facility] Work Phone: Potassium [Moles/Vol] 3.7 mmol/L 3.5-5.1 [facility] Work Phone: Protein [Mass/Vol] 7.6 g/dL 6.4-8.2 [facility] Work Phone: Sodium [Moles/Vol] 141 mmol/L 136-145 [facility] Work Phone: WBC (Bld) [#/Vol] 6.4 10*3/uL 4.4-11.0 [facility]: Blood erythrocytes count (nu mber/volume)on 10-06-2021 RBC (Bld) [#/Vol] 3.87 10*6/uL 4.2-5.4 [facility] Blood hemoglobin measurement (mass/volume)on 10-06-2021 Hemoglobin (Bld) [Mass/Vol] 12.3 g/dL 12.0-15.0 [facility] Work Phone: Blood lymphocytes/100 leukoc yteson 10-06-2021 Lymphocytes/100 WBC (Bld) 39.8 % 19-41 [facility] Work Phone: Blood monocytes/100 leukocyt eson 10-06-2021 Monocytes/100 WBC (Bld) 11.1 % 0-10 [facility] Work Phone: Blood platelet mean volumeon 10-06-2021 Platelet mean volume (Bld) [Entitic vol] 8.7 fL 6.2-12.0 [facility] Work Phone: Determination of erythrocyte mean corpuscular volume (MCV)on 10-06-2021 MCV (RBC) [Entitic vol] 96.6 fL 81-99 [facility] Work Phone: Erythrocyte sedimentation ra gary 10-06-2021 ESR (Bld) [Velocity] 3 mm/h 0-30 [facility]: Hematocrit Auto (Bld) [Volum e fraction]on 10-06-2021 Hematocrit (Bld) [Volume fraction] 37.4 % 37-47 [facility] Work Phone: INR in Blood by Coagulation assayon 10-06-2021 INR Coag (Bld) [Relative time] 1.0 {INR} [facility] Work Phone: Laboratory - Chemistry and C hemistry - challengeon 10-06-2021 ALP [Catalytic activity/Vol] 62 U/L 45-117 [facility] Work Phone: ALT [Catalytic activity/Vol] 50 U/L 13-56 [facility] Work Phone: CO2 [Moles/Vol] 32.0 mmol/L 21.0-32.0 [facility] Work Phone: Globulin (S) [Mass/Vol] 3.6 g/dL 2.2-4.2 [facility] Work Phone: Urea nitrogen/Creatinine [Mass ratio] 19.3 mg/mg 10-20 [facility] Work Phone: Laboratory - Coagulationon 0 10-06-2021 aPTT Coag (Bld) [Time] 26.3 s 24.1-36.2 [facility] Work Phone: PT Coag (PPP) [Time] 12.4 s 11.7-14.9 [facility] Work Phone: Laboratory - Hematology and Cell countson 10-06-2021 Erythrocyte distribution width (RBC) [Entitic vol] 46.5 fL 35.1-43.9 [facility] Work Phone: Erythrocyte distribution width (RBC) [Ratio] 13.0 % 11.6-14.6 [facility] Work Phone: Immature granulocytes/100 WBC (Bld) 0.200 % 0.0-0.9 [facility] Work Phone: Comment on above: IG% - Immature Granu locytes (promyelocytes, myelocytes and metamyelocytes) > 1% indicates that a LEFT SHIFT is Present. MCH (RBC) [Entitic mass] 31.8 pg 27.0-32.0 [facility] Work Phone: Nucleated RBC/100 WBC (Bld) [Ratio] 0 % 0-5 [facility] Work Phone: MCHC Auto (RBC) [Mass/Vol]on 10-06-2021 MCHC (RBC) [Mass/Vol] 32.9 g/dL 32-36 [facility] Work Phone: No Panel Informationon 10-06 Estimated GFR (MDRD) Amer 85 mL/min >60 [facility] Work Phone: Comment on above: GFR Calc Estimated GFR (MDRD) Non-Af Amer 70 mL/min >60 [facility] Work Phone: Comment on above: Non- GFR Calc Platelets bldon 10-06-2021 Platelets (Bld) [#/Vol] 276 10*3/uL 150-450 [facility] Work Phone: Serum or plasma albumin hannah urement (mass/volume)on 10-06-2021 Albumin [Mass/Vol] 4.0 g/dL 3.2-5.0 [facility] Work Phone: Serum or plasma albumin/glob ulin mass ratioon 10-06-2021 Albumin/Globulin [Mass ratio] 1.1 {ratio} 0.9-2.4 [facility] Work Phone: Serum or plasma calcium hannah urement (mass/volume)on 10-06-2021 Calcium [Mass/Vol] 9.0 mg/dL 8.5-10.1 [facility] Work Phone: Serum or plasma creatinine m easurement (mass/volume)on 10-06-2021 Creatinine [Mass/Vol] 0.88 mg/dL 0.55-1.02 [facility] Work Phone: Comment on above: The validity of the calculated GFR & GFRAA in patients over 70 years has not been determined. Clinical correlation is essential. Serum or plasma urea nitroge n measurement (mass/volume)on 10-06-2021 Urea nitrogen [Mass/Vol] 17 mg/dL 7-18 [facility] Work Phone: Thin prep Papanicolaou smear with manual screeningon 10-06-2021 Thin prep Papanicolaou smear with manual screening 33 U/L 15-37 [facility] Work Phone: Thin prep Papanicolaou smear with manual screening 2 5-15 [facility] Work Phone: Thin prep Papanicolaou smear with manual screening 175 U/L 84-246 [facility] Work Phone: Basophil percentageon 2021 WBC (Bld) [#/Vol] 7.7 10*3/uL 4.4-11.0 [facility] Work Phone: Blood erythrocytes count (nu mber/volume)on 07-26-2021 RBC (Bld) [#/Vol] 4.04 10*6/uL 4.2-5.4 [facility] Work Phone: Blood hemoglobin measurement (mass/volume)on 07-26-2021 Hemoglobin (Bld) [Mass/Vol] 13.0 g/dL 12.0-15.0 [facility] Work Phone: Blood platelet mean volumeon 07-26-2021 Platelet mean volume (Bld) [Entitic vol] 9.3 fL 6.2-12.0 [facility] Work Phone: Determination of erythrocyte mean corpuscular volume (MCV)on 07-26-2021 MCV (RBC) [Entitic vol] 96.5 fL 81-99 [facility] Work Phone: Hematocrit Auto (Bld) [Volum e fraction]on 07-26-2021 Hematocrit (Bld) [Volume fraction] 39.0 % 37-47 [facility] Work Phone: Laboratory - Hematology and Cell countson 07-26-2021 Erythrocyte distribution width (RBC) [Entitic vol] 44.2 fL 35.1-43.9 [facility] Work Phone: Erythrocyte distribution width (RBC) [Ratio] 12.5 % 11.6-14.6 [facility] Work Phone: MCH (RBC) [Entitic mass] 32.2 pg 27.0-32.0 [facility] Work Phone: MCHC Auto (RBC) [Mass/Vol]on 07-26-2021 MCHC (RBC) [Mass/Vol] 33.3 g/dL 32-36 [facility] Work Phone: No Panel Informationon 07-26 Vitamin D 25-Hydroxy 26.6 ng/mL [facility] Work Phone: Comment on above: Vitamin D 25(OH) Sta tus Range Deficiency <20 ng/mL (50nmol/L) Insufficiency 20 - 30 ng/mL (50 - 75 nmol/L) Sufficiency 30 - 100 ng/mL (75 - 250 nmol/L) Toxicity >100 ng/mL (>250 nmol/L) Platelets bldon 07-26-2021 Platelets (Bld) [#/Vol] 296 10*3/uL 150-450 [facility] Work Phone: Discharge Summaryon 06-27-19 18 Discharge Summary Normal [facility] ([place] Main OR Intraop Recordon Main OR Intraop Record Normal [facility]) CBLon 06-07-2017 CBL . MICRO - MicrobiologyPROCEDURE: [...] days.Performing Locations*1: This test was performed at: [facility], [address] [place] [address], [address] [place] [address] ([place]) Comment on above: Performed By: #### C BC, ADIFF, ANEU, PRO, GFR, CMP ####[facility] [place] [address] CBL . MICRO - MicrobiologyPROCEDURE: Blood Culture [...] days.Performing Locations*1: This test was performed at: [address], [address] [place] [address] ([place]) Comment on above: Performed By: #### C BC, ADIFF, ANEU, PRO, GFR, CMP ####[place] [address] CGEFANon 06-05-2017 CGEFAN . MICRO - MicrobiologyPROCEDURE: [...] ResistantSulfaPerforming Locations*1: This test was performed at: [address], [address] [place] [address]) Comment on above: Performed By: #### C BC, OLIVER, ANEU, PRO, GFR, CMP ####[place] [address] Depart Summaryon 06-05-2017 Depart Summary Normal [facility]) TOBACCO SORTER Rounding Noteon 06-05-20 17 TOBACCO SORTER Rounding Note Normal [facility]) TOBACCO SORTER Rounding Note Normal [facility]) Infectious Disease Progress Noteon 06-05-2017 Infectious Disease Progress Note Normal [facility]) Inpatient Patient Summaryon 06-05-2017 Inpatient Patient Summary Normal [facility]) Infectious Disease Progress Noteon 06-04-2017 Infectious Disease Progress Note Normal [facility] ([place] Progress Note-Nurseon 2016 Progress Note-Nurse Normal [facility] ([place]) [facility] 06-04-2017 LDose Vancomycin:(trough) See eMAR Normal [facility] ([place] Comment on above: Performed By: #### C BC, ADIFF, ANEU, PRO, GFR, CMP ####[place] [address] VANCOMYCIN 12.0 mcg/mL Normal 5.0-20.0 [facility]) Comment on above: Performed By: #### C BC, ADIFF, ANEU, PRO, GFR, CMP ####[address] [address] .Auto Diffon 06-03-2017 Basophils Auto #/vol (Bld) 0.00 10 3/mcL Normal 0.00-0.27 [facility] ([place]) Comment on above: Performed By: #### C BC, ADIFF, ANEU, PRO, GFR, CMP ####[address] [address] Basophils/100 WBC Auto (Bld) 0.3 % Normal 0.0-2.5 [facility] ([place]) Comment on above: Performed By: #### C BC, ADIFF, ANEU, PRO, GFR, CMP ####[address] [address] Eosinophils 0.30 10 3/mcL Normal 0.00-0.65 [facility] ([place]) Comment on above: Performed By: #### C BC, ADIFF, ANEU, PRO, GFR, CMP ####[address] [address] Eosinophils/100 leukocytes 2.5 % Normal 0.0-6.0 [facility] ([place]) Comment on above: Performed By: #### C BC, ADIFF, ANEU, PRO, GFR, CMP ####[address] [address] Lymphocytes 2.00 10 3/mcL Normal 0.90-4.32 [facility] ([place]) Comment on above: Performed By: #### C BC, ADIFF, ANEU, PRO, GFR, CMP ####[address] [address] Lymphocytes/100 leukocytes 16.1 % Low 20.0-40.0 [facility] ([place]) Comment on above: Performed By: #### C BC, ADIFF, ANEU, PRO, GFR, CMP ####[address] [address] Monocytes 0.70 10 3/mcL Normal 0.09-1.40 [facility] ([place]) Comment on above: Performed By: #### C BC, ADIFF, ANEU, PRO, GFR, CMP ####[address] [address] Monocytes/100 leukocytes 5.8 % Normal 2.0-13.0 [facility] ([place]) Comment on above: Performed By: #### C BC, ADIFF, ANEU, PRO, GFR, CMP ####[address] [address] Neutrophils/100 WBC Auto (Bld) 75.3 % High 50.0-75.0 [facility] ([place]) Comment on above: Performed By: #### C BC, ADIFF, ANEU, PRO, GFR, CMP ####[address] [address] .GFRon 06-03-2017 eGFR (non-black) mL/min/{1.73_m2} Normal [facility] ([place]) Comment on above: Result Comment: GFR Population [...] C BC, ADIFF, ANEU, PRO, GFR, CMP ####[address] [address] .NEUABSon 06-03-2017 Neutrophils 9.40 10 3/mcL High 2.25-8.10 [facility] ([place]) Comment on above: Performed By: #### C BC, ADIFF, ANEU, PRO, GFR, CMP ####[address] [address] CBCon 06-03-2017 Erythrocyte distribution width Auto Ratio (RBC) 12.4 % Normal 11.5-15.5 [facility] ([place] Comment on above: Performed By: #### C BC, ADIFF, ANEU, PRO, GFR, CMP ####[place] [address] Erythrocytes (RBC) 3.54 10 6/mcL Low 4.10-5.30 [facility] ([place]) Comment on above: Performed By: #### C BC, ADIFF, ANEU, PRO, GFR, CMP ####[place] [address] Hematocrit (HCT) 32.5 % Low 34.0-46.0 [facility] ([place]) Comment on above: Performed By: #### C BC, ADIFF, ANEU, PRO, GFR, CMP ####[place] [address] Hemoglobin mass conc (Bld) 11.2 G/dL Low 12.0-16.0 [facility] ([place]) Comment on above: Performed By: #### C BC, ADIFF, ANEU, PRO, GFR, CMP ####[place] [address] MCH 31.6 pg Normal 27.0-33.0 [facility] ([place]) Comment on above: Performed By: #### C BC, ADIFF, ANEU, PRO, GFR, CMP ####[place] [address] MCHC mass conc (RBC) 34.5 G/dL Normal 32.0-36.0 [facility] ([place]) Comment on above: Performed By: #### C BC, ADIFF, ANEU, PRO, GFR, CMP ####[place] [address] MCV 91.6 fL Normal 80.0-99.0 [facility] ([place]) Comment on above: Performed By: #### C BC, ADIFF, ANEU, PRO, GFR, CMP ####[place] [address] Platelet mean volume (PMV) 6.9 fL Normal 6.6-10.5 [facility] ([place]) Comment on above: Performed By: #### C BC, ADIFF, ANEU, PRO, GFR, CMP ####[place] [address] Platelets 339 10 3/mcL Normal 150-450 [facility] ([place] Comment on above: Performed By: #### C BC, ADIFF, ANEU, PRO, GFR, CMP ####[place] [address] WBC (Leukocytes) 12.40 10 3/mcL High 4.50-10.80 [facility] ([place]) Comment on above: Performed By: #### C BC, ADIFF, ANEU, PRO, GFR, CMP ####[place] [address] CMPon 06-03-2017 Alanine aminotransferase (ALT) 24 U/L Normal 10-49 [facility] ([place] Comment on above: Performed By: #### C BC, ADIFF, ANEU, PRO, GFR, CMP ####[place] [address] Albumin/Globulin Ratio 1.0 {ratio} Normal 0.9-1.6 [facility] ([place]) Comment on above: Performed By: #### C BC, ADIFF, ANEU, PRO, GFR, CMP ####[place] [address] Alk Phos 62 U/L Normal 38-126 [facility] ([place] Comment on above: Performed By: #### C BC, ADIFF, ANEU, PRO, GFR, CMP ####[place] [address] Bili Total 0.6 mg/dL Normal 0.2-1.2 [facility] ([place]) Comment on above: Performed By: #### C BC, ADIFF, ANEU, PRO, GFR, CMP ####[place] [address] BUN/Creatinine Ratio 8.7 ratio Low 10.0-22.0 [facility] ([place]) Comment on above: Performed By: #### C BC, ADIFF, ANEU, PRO, GFR, CMP ####[place] [address] Creatinine 0.69 mg/dL Normal 0.50-1.20 [facility] ([place] Comment on above: Performed By: #### C BC, ADIFF, ANEU, PRO, GFR, CMP ####[place] [address] Globulin 3.1 G/dL Normal 1.5-3.8 [facility] ([place] Comment on above: Performed By: #### C BC, ADIFF, ANEU, PRO, GFR, CMP ####[place] [address] Protein 6.2 G/dL Normal 6.0-8.5 [facility] ([place] Comment on above: Performed By: #### C BC, ADIFF, ANEU, PRO, GFR, CMP ####[place] [address] Albumin 3.1 G/dL Low 3.2-4.8 [facility] ([place] Comment on above: Performed By: #### C BC, ADIFF, ANEU, PRO, GFR, CMP ####[place] [address] Aspartate aminotransferase (AST) 9 U/L Normal 8-34 [facility] ([place] Comment on above: Performed By: #### C BC, ADIFF, ANEU, PRO, GFR, CMP ####[place] [address] Calcium 8.2 mg/dL Low 8.4-10.1 [facility] ([place] Comment on above: Performed By: #### C BC, ADIFF, ANEU, PRO, GFR, CMP ####[place] [address] Chloride 108 mmol/L Normal 98-110 [facility] ([place] Comment on above: Performed By: #### C BC, ADIFF, ANEU, PRO, GFR, CMP ####[place] [address] CO2 22 mmol/L Normal 22-32 [facility] ([place] Comment on above: Performed By: #### C BC, ADIFF, ANEU, PRO, GFR, CMP ####[address] [address] Electrolyte Balance 8.0 mEq/L Normal 4.0-15.0 [facility] ([place]) Comment on above: Performed By: #### C BC, ADIFF, ANEU, PRO, GFR, CMP ####[address] [address] Glucose mass conc 130 mg/dL High 70-110 [facility] ([place] Comment on above: Performed By: #### C BC, ADIFF, ANEU, PRO, GFR, CMP ####[place] [address] Potassium molar conc 4.0 mmol/L Normal 3.5-5.0 [facility] ([place]) Comment on above: Performed By: #### C BC, ADIFF, ANEU, PRO, GFR, CMP ####[place] [address] Sodium 138 mmol/L Normal 136-145 [facility] ([place] Comment on above: Performed By: #### C BC, ADIFF, ANEU, PRO, GFR, CMP ####[place] [address] Urea nitrogen 6.0 mg/dL Low 8.0-22.0 [facility] ([place] Comment on above: Performed By: #### C BC, ADIFF, ANEU, PRO, GFR, CMP ####[address] [address] TOBACCO SORTER Rounding Noteon 06-03-20 17 TOBACCO SORTER Rounding Note Normal [facility] ([place] Infectious Disease Progress Noteon 06-03-2017 Infectious Disease Progress Note Normal [facility] ([place] Progress Note-Nurseon 2016 Progress Note-Nurse Normal [facility] ([place]) .Auto Diffon 06-02-2017 Basophils Auto #/vol (Bld) 0.00 10 3/mcL Normal 0.00-0.27 [facility] ([place] Comment on above: Performed By: #### C BC, ADIFF, ANEU, PRO, GFR, CMP ####[place] [address] Basophils/100 WBC Auto (Bld) 0.1 % Normal 0.0-2.5 [facility] ([place] Comment on above: Performed By: #### C BC, ADIFF, ANEU, PRO, GFR, CMP ####[address] [address] Eosinophils 0.10 10 3/mcL Normal 0.00-0.65 [facility] ([place]) Comment on above: Performed By: #### C BC, ADIFF, ANEU, PRO, GFR, CMP ####[address] [address] Eosinophils/100 leukocytes 0.8 % Normal 0.0-6.0 [facility] ([place]) Comment on above: Performed By: #### C BC, ADIFF, ANEU, PRO, GFR, CMP ####[address] [address] Lymphocytes 2.80 10 3/mcL Normal 0.90-4.32 [facility] ([place] Comment on above: Performed By: #### C BC, ADIFF, ANEU, PRO, GFR, CMP ####[address] [address] Lymphocytes/100 leukocytes 17.5 % Low 20.0-40.0 [facility] ([place] Comment on above: Performed By: #### C BC, ADIFF, ANEU, PRO, GFR, CMP ####[address] [address] Monocytes 1.50 10 3/mcL High 0.09-1.40 [facility] ([place]) Comment on above: Performed By: #### C BC, ADIFF, ANEU, PRO, GFR, CMP ####[address] [address] Monocytes/100 leukocytes 9.5 % Normal 2.0-13.0 [facility] ([place]) Comment on above: Performed By: #### C BC, ADIFF, ANEU, PRO, GFR, CMP ####[address] [address] Neutrophils/100 WBC Auto (Bld) 72.1 % Normal 50.0-75.0 [facility] ([place]) Comment on above: Performed By: #### C BC, ADIFF, ANEU, PRO, GFR, CMP ####[place] [address] .GFRon 06-02-2017 eGFR (non-black) mL/min/{1.73_m2} Normal [facility] ([place]) Comment on above: Result Comment: GFR Population [...] C BC, ADIFF, ANEU, PRO, GFR, CMP ####[place] [address] .NEUABSon 06-02-2017 Neutrophils 11.70 10 3/mcL High 2.25-8.10 [facility] ([place] Comment on above: Performed By: #### C BC, ADIFF, ANEU, PRO, GFR, CMP ####[place] [address] CBCon 06-02-2017 Erythrocyte distribution width Auto Ratio (RBC) 12.6 % Normal 11.5-15.5 [facility] ([place] Comment on above: Performed By: #### C BC, ADIFF, ANEU, PRO, GFR, CMP ####[place] [address] Erythrocytes (RBC) 3.69 10 6/mcL Low 4.10-5.30 [facility] ([place]) Comment on above: Performed By: #### C BC, ADIFF, ANEU, PRO, GFR, CMP ####[place] [address] Hematocrit (HCT) 34.4 % Normal 34.0-46.0 [facility] ([place]) Comment on above: Performed By: #### C BC, ADIFF, ANEU, PRO, GFR, CMP ####[place] [address] Hemoglobin mass conc (Bld) 11.6 G/dL Low 12.0-16.0 [facility] ([place]) Comment on above: Performed By: #### C BC, ADIFF, ANEU, PRO, GFR, CMP ####[place] [address] MCH 31.5 pg Normal 27.0-33.0 [facility] ([place] Comment on above: Performed By: #### C BC, ADIFF, ANEU, PRO, GFR, CMP ####[place] [address] MCHC mass conc (RBC) 33.9 G/dL Normal 32.0-36.0 [facility] ([place]) Comment on above: Performed By: #### C BC, ADIFF, ANEU, PRO, GFR, CMP ####[place] [address] MCV 93.0 fL Normal 80.0-99.0 [facility] ([place]) Comment on above: Performed By: #### C BC, ADIFF, ANEU, PRO, GFR, CMP ####[place] [address] Platelet mean volume (PMV) 7.0 fL Normal 6.6-10.5 [facility] ([place]) Comment on above: Performed By: #### C BC, ADIFF, ANEU, PRO, GFR, CMP ####[place] [address] Platelets 370 10 3/mcL Normal 150-450 [facility] ([place] Comment on above: Performed By: #### C BC, ADIFF, ANEU, PRO, GFR, CMP ####[place] [address] WBC (Leukocytes) 16.30 10 3/mcL High 4.50-10.80 [facility] ([place]) Comment on above: Performed By: #### C BC, ADIFF, ANEU, PRO, GFR, CMP ####[place] [address] CMPon 06-02-2017 Albumin/Globulin Ratio 1.0 {ratio} Normal 0.9-1.6 [facility] ([place]) Comment on above: Performed By: #### C BC, ADIFF, ANEU, PRO, GFR, CMP ####[place] [address] Alk Phos 61 U/L Normal 38-126 [facility] ([place] Comment on above: Performed By: #### C BC, ADIFF, ANEU, PRO, GFR, CMP ####[place] [address] Bili Total 0.7 mg/dL Normal 0.2-1.2 [facility] ([place] Comment on above: Performed By: #### C BC, ADIFF, ANEU, PRO, GFR, CMP ####[place] [address] Globulin 3.2 G/dL Normal 1.5-3.8 [facility] ([place] Comment on above: Performed By: #### C BC, ADIFF, ANEU, PRO, GFR, CMP ####[place] [address] Protein 6.3 G/dL Normal 6.0-8.5 [facility] ([place] Comment on above: Performed By: #### C BC, ADIFF, ANEU, PRO, GFR, CMP ####[place] [address] Alanine aminotransferase (ALT) 26 U/L Normal 10-49 [facility] ([place] Comment on above: Performed By: #### C BC, ADIFF, ANEU, PRO, GFR, CMP ####[place] [address] Albumin 3.1 G/dL Low 3.2-4.8 [facility] ([place] Comment on above: Performed By: #### C BC, ADIFF, ANEU, PRO, GFR, CMP ####[place] [address] Aspartate aminotransferase (AST) 13 U/L Normal 8-34 [facility] ([place] Comment on above: Performed By: #### C BC, ADIFF, ANEU, PRO, GFR, CMP ####[place] [address] BUN/Creatinine Ratio 13.6 ratio Normal 10.0-22.0 [facility] ([place]) Comment on above: Performed By: #### C BC, ADIFF, ANEU, PRO, GFR, CMP ####[place] [address] Calcium 8.0 mg/dL Low 8.4-10.1 [facility] ([place] Comment on above: Performed By: #### C BC, ADIFF, ANEU, PRO, GFR, CMP ####[place] [address] Chloride 111 mmol/L High 98-110 [facility] ([place] Comment on above: Performed By: #### C BC, ADIFF, ANEU, PRO, GFR, CMP ####[place] [address] CO2 22 mmol/L Normal 22-32 [facility] ([place] Comment on above: Performed By: #### C BC, ADIFF, ANEU, PRO, GFR, CMP ####[place] [address] Creatinine 0.81 mg/dL Normal 0.50-1.20 [facility] ([place] Comment on above: Performed By: #### C BC, ADIFF, ANEU, PRO, GFR, CMP ####[place] [address] Electrolyte Balance 10.0 mEq/L Normal 4.0-15.0 [facility] ([place]) Comment on above: Performed By: #### C BC, ADIFF, ANEU, PRO, GFR, CMP ####[place] [address] Glucose mass conc 101 mg/dL Normal 70-110 [facility] ([place] Comment on above: Performed By: #### C BC, ADIFF, ANEU, PRO, GFR, CMP ####[address] [place] [address], [place] [address] Potassium molar conc 3.9 mmol/L Normal 3.5-5.0 [facility] ([place]) Comment on above: Performed By: #### C BC, ADIFF, ANEU, PRO, GFR, CMP ####[place] [address] [place] [address] Sodium 143 mmol/L Normal 136-145 [facility] ([place] Comment on above: Performed By: #### C BC, ADIFF, ANEU, PRO, GFR, CMP ####[place] [address] [place] [address] Urea nitrogen 11.0 mg/dL Normal 8.0-22.0 [facility] ([place] Comment on above: Performed By: #### C BC, ADIFF, ANEU, PRO, GFR, CMP ####[address] [address] [address] ABDOMEN/PELVIS W/CONTRAST on 06-02-2017 CT ABDOMEN/PELVIS [...] incidental findings, as above Interpreted By: Vinay Cai MDPreliminary Report By: Vinay Cai MDElectronically Signed By: Vinay Cai MD Dictated Date: 06/02/2017 12:22:41 PM Prelim Date: 06/02/2017 12:22:41 PM Sign Date: 06/02/2017 12:30:30 PM Normal [facility] ([place]) History and Physicalon 06-02 History and Physical Normal [facility] ([place]) Infectious Disease Consultat ionon 06-02-2017 Infectious Disease Consultation Normal [facility]) LACon 06-02-2017 Lactic Acid Lvl 1.4 mmol/L Normal 0.2-2.0 [facility] ([place] Comment on above: Performed By: #### C BC, ADIFF, ANEU, PRO, GFR, CMP ####[place] [address] PROon 06-02-2017 INR Coag RelTime (PPP) 1.1 {INR} Normal [facility] ([place]) Comment on above: Result Comment: [employer] (CHEST, 1992, 102:312S-25S)recommended therapeutic range for oral anticoagulant therapy is:LOW RISK: Prophylaxis of venous thrombosis INR: 2.0-3.0 Treatment of pulmonary embolism 2.0-3.0 Prevention of systemic embolism 2.0-3.0HIGH RISK: Mechanical prosthetic valves 2.5-3.5 Performed By: #### C BC, ADIFF, ANEU, PRO, GFR, CMP ####[address] [address] Prothrombin time (PT) Coag time (PPP) 12.9 s Normal 9.0-14.5 [facility] ([place] Comment on above: Result Comment: Effe ctive 12/25/07, Protime results may be affected by some antibiotics (i.e. Ciprofloxacin, Azithromycin, Bactrim) which may potentiate the action of oral anticoagulants, with further increases in Protime/INR. Performed By: #### C DUNG ADNOHEMY, ANEU, PRO, GFR, CMP ####[address] [address] Depart Summaryon 05-26-2017 Depart Summary Normal [facility]) Discharge Summaryon 05-26-20 Discharge Summary Normal [facility]) TOBACCO SORTER Rounding Noteon 05-26-20 TOBACCO SORTER Rounding Note Normal [facility]) Inpatient Patient Summaryon 05-26-2017 Inpatient Patient Summary Normal [facility]) .Auto Diffon 05-25-2017 Basophils Auto #/vol (Bld) 0.00 10 3/mcL Normal 0.00-0.27 [facility] ([place] Comment on above: Performed By: #### C OLIVER RAZO, ANEU, PRO, GFR, CMP ####[address] [address] Basophils/100 WBC Auto (Bld) 0.1 % Normal 0.0-2.5 [facility] ([place] Comment on above: Performed By: #### C OLIVER RAZO, ANEU, PRO, GFR, CMP ####[address] [address] Eosinophils 0.00 10 3/mcL Normal 0.00-0.65 [facility] ([place] Comment on above: Performed By: #### C OLIVER RAZO, ANEU, PRO, GFR, CMP ####[address] [address] Eosinophils/100 leukocytes 0.0 % Normal 0.0-6.0 [facility] ([place] Comment on above: Performed By: #### C DUNG ADIFF, ANEU, PRO, GFR, CMP ####[address] [address] Lymphocytes 1.60 10 3/mcL Normal 0.90-4.32 [facility] ([place] Comment on above: Performed By: #### C BC, ADIFF, ANEU, PRO, GFR, CMP ####[address] [address] Lymphocytes/100 leukocytes 12.5 % Low 20.0-40.0 [facility] ([place] Comment on above: Performed By: #### C BC, ADIFF, ANEU, PRO, GFR, CMP ####[address] [address] Monocytes 1.50 10 3/mcL High 0.09-1.40 [facility] ([place] Comment on above: Performed By: #### C BC, ADIFF, ANEU, PRO, GFR, CMP ####[address] [address] Monocytes/100 leukocytes 11.6 % Normal 2.0-13.0 [facility] ([place] Comment on above: Performed By: #### C BC, ADIFF, ANEU, PRO, GFR, CMP ####[address] [address] Neutrophils/100 WBC Auto (Bld) 75.8 % High 50.0-75.0 [facility] ([place] Comment on above: Performed By: #### C BC, ADIFF, ANEU, PRO, GFR, CMP ####[address] [address] .GFRon 05-25-2017 eGFR (non-black) mL/min/{1.73_m2} Normal [facility] ([place]) Comment on above: Result Comment: GFR Population [...] C BC, ADIFF, ANEU, PRO, GFR, CMP ####[place] [address] eGFR (non-black) mL/min/{1.73_m2} Normal [facility] ([place]) Comment on above: Result Comment: GFR Population [...] C BC, ADIFF, ANEU, PRO, GFR, CMP ####[place] [address] .NEUABSon 05-25-2017 Neutrophils 9.90 10 3/mcL High 2.25-8.10 [facility] ([place] Comment on above: Performed By: #### C BC, ADIFF, ANEU, PRO, GFR, CMP ####[place] [address] BMPon 05-25-2017 BUN/Creatinine Ratio 10.0 ratio Normal 10.0-22.0 [facility] ([place]) Comment on above: Performed By: #### C BC, ADIFF, ANEU, PRO, GFR, CMP ####[place] [address] Creatinine 0.80 mg/dL Normal 0.50-1.20 [facility] ([place] Comment on above: Performed By: #### C BC, ADIFF, ANEU, PRO, GFR, CMP ####[address] [address] Calcium 8.4 mg/dL Normal 8.4-10.1 [facility] ([place] Comment on above: Performed By: #### C BC, ADIFF, ANEU, PRO, GFR, CMP ####[address] [address] Chloride 110 mmol/L Normal 98-110 [facility] ([place] Comment on above: Performed By: #### C BC, ADIFF, ANEU, PRO, GFR, CMP ####[address] [address] CO2 25 mmol/L Normal 22-32 [facility] ([place] Comment on above: Performed By: #### C BC, ADIFF, ANEU, PRO, GFR, CMP ####[address] [address] Electrolyte Balance 5.0 mEq/L Normal 4.0-15.0 [facility] ([place]) Comment on above: Performed By: #### C BC, ADIFF, ANEU, PRO, GFR, CMP ####[place] [address] Glucose mass conc 135 mg/dL High 70-110 [facility] ([place] Comment on above: Performed By: #### C BC, ADIFF, ANEU, PRO, GFR, CMP ####[address] [address] Potassium molar conc 4.2 mmol/L Normal 3.5-5.0 [facility] ([place]) Comment on above: Performed By: #### C BC, ADIFF, ANEU, PRO, GFR, CMP ####[place] [address] Sodium 140 mmol/L Normal 136-145 [facility] ([place] Comment on above: Performed By: #### C BC, ADIFF, ANEU, PRO, GFR, CMP ####[place] [address] Urea nitrogen 8.0 mg/dL Normal 8.0-22.0 [facility] ([place] Comment on above: Performed By: #### C BC, ADIFF, ANEU, PRO, GFR, CMP ####[place] [address] CBCon 05-25-2017 Erythrocyte distribution width Auto Ratio (RBC) 13.0 % Normal 11.5-15.5 [facility] ([place] Comment on above: Performed By: #### C BC, ADIFF, ANEU, PRO, GFR, CMP ####[place] [address] Erythrocytes (RBC) 3.80 10 6/mcL Low 4.10-5.30 [facility] ([place]) Comment on above: Performed By: #### C BC, ADIFF, ANEU, PRO, GFR, CMP ####[place] [address] Hematocrit (HCT) 35.7 % Normal 34.0-46.0 [facility] ([place] Comment on above: Performed By: #### C BC, ADIFF, ANEU, PRO, GFR, CMP ####[place] [address] Hemoglobin mass conc (Bld) 12.2 G/dL Normal 12.0-16.0 [facility] ([place] Comment on above: Performed By: #### C BC, ADIFF, ANEU, PRO, GFR, CMP ####[place] [address] MCH 32.2 pg Normal 27.0-33.0 [facility] ([place] Comment on above: Performed By: #### C BC, ADIFF, ANEU, PRO, GFR, CMP ####[place] [address] MCHC mass conc (RBC) 34.2 G/dL Normal 32.0-36.0 [facility] ([place]) Comment on above: Performed By: #### C BC, ADIFF, ANEU, PRO, GFR, CMP ####[place] [address] MCV 94.0 fL Normal 80.0-99.0 [facility] ([place] Comment on above: Performed By: #### C BC, ADIFF, ANEU, PRO, GFR, CMP ####[place] [id number] [place] [address] Platelet mean volume (PMV) 7.2 fL Normal 6.6-10.5 [facility] ([place] Comment on above: Performed By: #### C BC, ADIFF, ANEU, PRO, GFR, CMP ####[address] [address] Platelets 253 10 3/mcL Normal 150-450 [facility] ([place] Comment on above: Performed By: #### C BC, ADIFF, ANEU, PRO, GFR, CMP ####[address] [address] WBC (Leukocytes) 13.00 10 3/mcL High 4.50-10.80 [facility] ([place]) Comment on above: Performed By: #### C BC, ADIFF, ANEU, PRO, GFR, CMP ####[address] [address] Final Surgical Pathology Rep [facility] 05-25-2017 Final Surgical Pathology Report . Pathology ReportsAccession: Collected Date/Time: Received Date/Time: Pathologist:[id number] 05/24/2017 08:52 EST 05/24/2017 10:31 EST DO [...] cm in thickness. The underlying myometrium is dkx-cycv-xjay, and measures up to 2.1 cm in thickness. There are a few intramural nodules measuring up to 0.4 cm in greatest dimension. All show regan-white whorled cut surfaces. RS -2Block Summary1 -2 cervix and endomyometrium intramural nodules, anterior and posterior cohen respectivelyDictated by JASSON OMALLEY ([facility])MICROSCOPIC DESCRIPTION:Slides reviewed. Pathology ReportsAccession: Collected Date/Time: Received Date/Time: Pathologist:[id number] 05/24/2017 08:52 EST 05/24/2017 10:31 EST DO NEEMA LOREDO EElectronically Signed byPathology Report verified by [facility] signed by NEEMA LOREDO DOSign out Date: 05/25/2017 12:48Performing Lab: [facility], [address] [place] [address] ([place]) Comment on above: Performed By: #### C BC, ADIFF, ANEU, PRO, GFR, CMP ####[place] [address] TOBACCO SORTER Rounding Noteon 05-25-20 17 TOBACCO SORTER Rounding Note Normal [facility] ([place]) Non-Faculty Instructor Cytology Reporton Non-Faculty Instructor Cytology Report . Pathology ReportsAccession: Collected Date/Time: Received Date/Time: Pathologist:[id number] 05/24/2017 08:47 EST 05/24/2017 12:21 EST MD RADHA TRENT Non-Faculty Instructor Cytology ReportCLINICAL INFORMATION:PELVIC MASSDIAGNOSIS:NEGATIVE FOR MALIGNANCYCOMMENT:SCANT CELLULARITYSPECIMEN:PELVIC WASHINGGROSS DESCRIPTION:# of Blocks: 1# of Monolayers: 1Volume (ml) 20 Color: FRESH BLOODY FLUIDElectronically Signed byPathology report verified by [facility]ened by: LS RMElectronically signed by RADHA TRENT MDSign-Out Date: 05/25/2017 08:54Performing Lab: [address] ([place]) Comment on above: Performed By: #### C BC, ADIFF, ANEU, PRO, GFR, CMP ####[place] [address] Operative Noteon 05-24-2017 Operative Note Normal [facility] ([place]) Procedure Noteon 05-24-2017 Procedure Note Normal [facility]) History and Physical Pre-Opo n 05-23-2017 History and Physical Pre-Op Normal [facility] ([place]) Main Pretest Recordon 2016 Main Pretest Record Normal [facility] ([place]) .Auto Diffon 05-17-2017 Basophils Auto #/vol (Bld) 0.00 10 3/mcL Normal 0.00-0.27 [facility]) Comment on above: Performed By: #### C BC, ADIFF, ANEU, PRO, GFR, CMP ####[place] [address] Basophils/100 WBC Auto (Bld) 0.7 % Normal 0.0-2.5 [facility] ([place]) Comment on above: Performed By: #### C BC, ADIFF, ANEU, PRO, GFR, CMP ####[address] [address] Eosinophils 0.10 10 3/mcL Normal 0.00-0.65 [facility] ([place] Comment on above: Performed By: #### C BC, ADIFF, ANEU, PRO, GFR, CMP ####[address] [address] Eosinophils/100 leukocytes 2.5 % Normal 0.0-6.0 [facility] ([place] Comment on above: Performed By: #### C BC, ADIFF, ANEU, PRO, GFR, CMP ####[address] [address] Lymphocytes 2.40 10 3/mcL Normal 0.90-4.32 [facility] ([place] Comment on above: Performed By: #### C BC, ADIFF, ANEU, PRO, GFR, CMP ####[address] [address] Lymphocytes/100 leukocytes 43.3 % High 20.0-40.0 [facility] ([place] Comment on above: Performed By: #### C BC, ADIFF, ANEU, PRO, GFR, CMP ####[address] [address] Monocytes 0.50 10 3/mcL Normal 0.09-1.40 [facility] ([place] Comment on above: Performed By: #### C BC, ADIFF, ANEU, PRO, GFR, CMP ####[address] [address] Monocytes/100 leukocytes 9.4 % Normal 2.0-13.0 [facility] ([place] Comment on above: Performed By: #### C BC, ADIFF, ANEU, PRO, GFR, CMP ####[address] [address] Neutrophils/100 WBC Auto (Bld) 44.1 % Low 50.0-75.0 [facility] ([place] Comment on above: Performed By: #### C BC, ADIFF, ANEU, PRO, GFR, CMP ####[place] [address] .GFRon 05-17-2017 eGFR (non-black) mL/min/{1.73_m2} Normal [facility] ([place]) Comment on above: Result Comment: GFR Population [...] C BC, ADIFF, ANEU, PRO, GFR, CMP ####[place] [address] .NEUABSon 05-17-2017 Neutrophils 2.40 10 3/mcL Normal 2.25-8.10 [facility] ([place] Comment on above: Performed By: #### C BC, ADIFF, ANEU, PRO, GFR, CMP ####[place] [address] CBCon 05-17-2017 Erythrocyte distribution width Auto Ratio (RBC) 12.8 % Normal 11.5-15.5 [facility] ([place] Comment on above: Performed By: #### C BC, ADIFF, ANEU, PRO, GFR, CMP ####[place] [address] Erythrocytes (RBC) 3.96 10 6/mcL Low 4.10-5.30 [facility] ([place]) Comment on above: Performed By: #### C BC, ADIFF, ANEU, PRO, GFR, CMP ####[place] [address] Hematocrit (HCT) 37.3 % Normal 34.0-46.0 [facility] ([place]) Comment on above: Performed By: #### C BC, ADIFF, ANEU, PRO, GFR, CMP ####[place] [address] Hemoglobin mass conc (Bld) 13.1 G/dL Normal 12.0-16.0 [facility] ([place] Comment on above: Performed By: #### C BC, ADIFF, ANEU, PRO, GFR, CMP ####[place] [address] MCH 33.0 pg Normal 27.0-33.0 [facility] ([place] Comment on above: Performed By: #### C BC, ADIFF, ANEU, PRO, GFR, CMP ####[place] [address] MCHC mass conc (RBC) 35.1 G/dL Normal 32.0-36.0 [facility] ([place]) Comment on above: Performed By: #### C BC, ADIFF, ANEU, PRO, GFR, CMP ####[place] [address] MCV 94.2 fL Normal 80.0-99.0 [facility] ([place]) Comment on above: Performed By: #### C BC, ADIFF, ANEU, PRO, GFR, CMP ####[place] [address] Platelet mean volume (PMV) 7.4 fL Normal 6.6-10.5 [facility] ([place] Comment on above: Performed By: #### C BC, ADIFF, ANEU, PRO, GFR, CMP ####[place] [address] Platelets 223 10 3/mcL Normal 150-450 [facility] ([place] Comment on above: Performed By: #### C BC, ADIFF, ANEU, PRO, GFR, CMP ####[place] [address] WBC (Leukocytes) 5.50 10 3/mcL Normal 4.50-10.80 [facility] ([place]) Comment on above: Performed By: #### C BC, ADIFF, ANEU, PRO, GFR, CMP ####[place] [address] CMPon 05-17-2017 Albumin/Globulin Ratio 1.3 {ratio} Normal 0.9-1.6 [facility] ([place]) Comment on above: Performed By: #### C BC, ADIFF, ANEU, PRO, GFR, CMP ####[place] [address] Alk Phos 51 U/L Normal 38-126 [facility] ([place] Comment on above: Performed By: #### C BC, ADIFF, ANEU, PRO, GFR, CMP ####[place] [address] Bili Total 0.6 mg/dL Normal 0.2-1.2 [facility] ([place]) Comment on above: Performed By: #### C BC, ADIFF, ANEU, PRO, GFR, CMP ####[place] [address] Globulin 2.9 G/dL Normal 1.5-3.8 [facility] ([place]) Comment on above: Performed By: #### C BC, ADIFF, ANEU, PRO, GFR, CMP ####[place] [address] Protein 6.7 G/dL Normal 6.0-8.5 [facility] ([place] Comment on above: Performed By: #### C BC, ADIFF, ANEU, PRO, GFR, CMP ####[place] [address] Alanine aminotransferase (ALT) 25 U/L Normal 10-49 [facility] ([place] Comment on above: Performed By: #### C BC, ADIFF, ANEU, PRO, GFR, CMP ####[place] [address] Albumin 3.8 G/dL Normal 3.2-4.8 [facility] ([place]) Comment on above: Performed By: #### C BC, ADIFF, ANEU, PRO, GFR, CMP ####[place] [address] Aspartate aminotransferase (AST) 15 U/L Normal 8-34 [facility] ([place] Comment on above: Performed By: #### C BC, ADIFF, ANEU, PRO, GFR, CMP ####[place] [address] BUN/Creatinine Ratio 12.5 ratio Normal 10.0-22.0 [facility] ([place]) Comment on above: Performed By: #### C BC, ADIFF, ANEU, PRO, GFR, CMP ####[place] [address] Calcium 8.6 mg/dL Normal 8.4-10.1 [facility] ([place]) Comment on above: Performed By: #### C BC, ADIFF, ANEU, PRO, GFR, CMP ####[place] [address] Chloride 114 mmol/L High 98-110 [facility] ([place] Comment on above: Performed By: #### C BC, ADIFF, ANEU, PRO, GFR, CMP ####[place] [address] CO2 22 mmol/L Normal 22-32 [facility] ([place] Comment on above: Performed By: #### C BC, ADIFF, ANEU, PRO, GFR, CMP ####[place] [address] Creatinine 0.96 mg/dL Normal 0.50-1.20 [facility] ([place]) Comment on above: Performed By: #### C BC, ADIFF, ANEU, PRO, GFR, CMP ####[place] [address] Electrolyte Balance 7.0 mEq/L Normal 4.0-15.0 [facility] ([place]) Comment on above: Performed By: #### C BC, ADIFF, ANEU, PRO, GFR, CMP ####[place] [address] Glucose mass conc 88 mg/dL Normal 70-110 [facility] ([place] Comment on above: Performed By: #### C BC, ADIFF, ANEU, PRO, GFR, CMP ####[place] [address] Potassium molar conc 3.9 mmol/L Normal 3.5-5.0 [facility] ([place]) Comment on above: Performed By: #### C BC, ADIFF, ANEU, PRO, GFR, CMP ####[place] [address] Sodium 143 mmol/L Normal 136-145 [facility] ([place] Comment on above: Performed By: #### C BC, ADIFF, ANEU, PRO, GFR, CMP ####[place] [address] Urea nitrogen 12.0 mg/dL Normal 8.0-22.0 [facility] ([place]) Comment on above: Performed By: #### C BC, ADIFF, ANEU, PRO, GFR, CMP ####[place] [address] PROon 05-17-2017 INR Coag RelTime (PPP) 0.9 {INR} Normal [facility] ([place]) Comment on above: Result Comment: [employer] (CHEST, 1992, 102:312S-25S)recommended therapeutic range for oral anticoagulant therapy is:LOW RISK: Prophylaxis of venous thrombosis INR: 2.0-3.0 Treatment of pulmonary embolism 2.0-3.0 Prevention of systemic embolism 2.0-3.0HIGH RISK: Mechanical prosthetic valves 2.5-3.5 Performed By: #### C BC, ADIFF, ANEU, PRO, GFR, CMP ####[place] [address] Prothrombin time (PT) Coag time (PPP) 10.9 s Normal 9.0-14.5 [facility] ([place]) Comment on above: Result Comment: Effe ctive 12/25/07, Protime results may be affected by some antibiotics (i.e. Ciprofloxacin, Azithromycin, Bactrim) which may potentiate the action of oral anticoagulants, with further increases in Protime/INR. Performed By: #### C BC, ADIFF, ANEU, PRO, GFR, CMP ####[place] [address] TABOon 05-17-2017 ABO/Rh Interp Positive Invalid Interpretation Code [facility] ([place] Comment on above: Performed By: #### A MECHEH, ANTIS ####[id number] [place] [id number] TABSon 05-17-2017 Antibody Screen Tango Negative Normal [facility] ([place]) Comment on above: Performed By: #### A MECHEH, ANTIS ####[id number] [place] [id number] Vital Signs Date Time Vital Sign Value Performing Clinician Faci lity 08-10-2024 09:37-0500 Body temperature 99.1 [degF] Dr. Denise Cheng MD Work Phone: [phone] [place] [address] 08-10-2024 09:37-0500 Diastolic blood pressure 60 mm[Hg] Dr. Denise Cheng MD Work Phone: [phone] [place] [address] 08-10-2024 09:37-0500 Heart rate 85 /min Dr. Denise Cheng MD Work Phone: 1(887)600-798700 [place] [address] 08-10-2024 09:37-0500 Respiratory rate 16 /min Dr. Denise Cheng MD Work Phone: [facility] 08-10-2024 09:37-0500 SaO2% (BldA) [Mass fraction] 97 % Dr. Denise Cheng MD Work Phone: [facility] 08-10-2024 09:37-0500 Systolic blood pressure 118 mm[Hg] Dr. Denise Cheng MD Work Phone: [facility] 07-28-2024 12:43-0500 Body height 175.[address] Denise Cheng MD Work Phone: [facility] 07-28-2024 12:43-0500 Body temperature 98.1 [degF] Dr. Denise Cheng MD Work Phone: [facility] 07-28-2024 12:43-0500 Diastolic blood pressure 68 mm[Hg] Dr. Denise Cheng MD Work Phone: [facility] 07-28-2024 12:43-0500 Heart rate 96 /min Dr. Denise Cheng MD Work Phone: [facility] 07-28-2024 12:43-0500 Respiratory rate 12 /min Dr. Denise Cheng MD Work Phone: [facility] 07-28-2024 12:43-0500 SaO2% (BldA) [Mass fraction] 98 % Dr. Denise Cheng MD Work Phone: 4(262)985-065300 [place] [address] 07-28-2024 12:43-0500 Systolic blood pressure 116 mm[Hg] Dr. Denise Cheng MD Work Phone: 2(910)334-009170 [place] [address] 04-03-2023 07:34-0400 SaO2% (BldA) [Mass fraction] 95 % Dr. Denise Cheng Work Phone: 9(243)466-935070 [place] [address] 04-03-2023 07:23-0400 Body height 175.[address] Denise Cheng Work Phone: 9(832)618-478270 [place] [address] 04-03-2023 07:23-0400 Body mass index (BMI) [Ratio] 29.7 kg/m2 Dr. Denise Cheng Work Phone: 5(183)168-662470 [place] [address] 04-03-2023 07:23-0400 Body temperature 98.3 [degF] Dr. Denise Cheng Work Phone: 6(302)843-579206 [address] 04-03-2023 07:23-0400 Body weight 91.[address] Denise Cheng Work Phone: 0(679)057-032200 [place] [address] 04-03-2023 07:23-0400 Diastolic blood pressure 81 mm[Hg] Dr. Denise Cheng Work Phone: [facility] 04-03-2023 07:23-0400 Heart rate 96 /min Dr. Denise Cheng Work Phone: 0(723)563-438000 [place] [address] 04-03-2023 07:23-0400 Respiratory rate 16 /min Dr. Denise Cheng Work Phone: 5(927)370-120006 [address] 04-03-2023 07:23-0400 Systolic blood pressure 120 mm[Hg] Dr. Denise Cheng Work Phone: [facility] 01-20-2022 14:04-0400 Body height 175.[address] Denise Cheng Work Phone: [facility] Work Phone: 01-20-2022 14:02-0400 Body mass index (BMI) [Ratio] 28.7 kg/m2 Dr. Denise Cheng Work Phone: [facility] Work Phone: 01-20-2022 14:02-0400 Body temperature 97.6 [degF] Dr. Denise Cheng Work Phone: [facility] Work Phone: 01-20-2022 14:02-0400 Body weight 88.[address] Denise Cheng Work Phone: [facility] Work Phone: 01-20-2022 14:02-0400 Diastolic blood pressure 76 mm[Hg] Dr. Denise Cheng Work Phone: [facility] Work Phone: 01-20-2022 14:02-0400 Heart rate 91 /min Dr. Denise Cheng Work Phone: [facility] Work Phone: 01-20-2022 14:02-0400 Respiratory rate 16 /min Dr. Denise Cheng Work Phone: [facility] Work Phone: 01-20-2022 14:02-0400 SaO2% (BldA) [Mass fraction] 94 % Dr. Denise Cheng Work Phone: [facility] Work Phone: 01-20-2022 14:02-0400 Systolic blood pressure 121 mm[Hg] Dr. Denise Cheng Work Phone: [facility] Work Phone: 10-21-2021 10:55-0400 Body height 175.[address] Denise Cheng Work Phone: [facility] Work Phone: 10-21-2021 10:55-0400 Body mass index (BMI) [Ratio] 29 kg/m2 Dr. Denise Cheng Work Phone: [facility] Work Phone: 10-21-2021 10:55-0400 Body temperature 97.5 [degF] Dr. Denise Cheng Work Phone: [facility] Work Phone: 10-21-2021 10:55-0400 Body weight 89.[address] Denise Cheng Work Phone: [facility] Work Phone: 10-21-2021 10:55-0400 Diastolic blood pressure 89 mm[Hg] Dr. Denise Cheng Work Phone: [facility] Work Phone: 10-21-2021 10:55-0400 Heart rate 79 /min Dr. Denise Cheng Work Phone: [facility] Work Phone: 10-21-2021 10:55-0400 Respiratory rate 16 /min Dr. Denise Cheng Work Phone: [facility] Work Phone: 10-21-2021 10:55-0400 SaO2% (BldA) [Mass fraction] 98 % Dr. Denise Cheng Work Phone: [facility] Work Phone: 10-21-2021 10:55-0400 Systolic blood pressure 133 mm[Hg] Dr. Denise Cheng Work Phone: [facility] Work Phone: 10-06-2021 14:09-0400 Body mass index (BMI) [Ratio] 29.5 kg/m2 Dr. Denise Cheng Work Phone: [facility] Work Phone: 10-06-2021 14:09-0400 Body temperature 98.4 [degF] Dr. Denise Cheng Work Phone: [facility] Work Phone: 10-06-2021 14:09-0400 Body weight 90.[address] Denise Cheng Work Phone: [facility] Work Phone: 10-06-2021 14:09-0400 Diastolic blood pressure 85 mm[Hg] Dr. Denise Cheng Work Phone: [facility] Work Phone: 10-06-2021 14:09-0400 Heart rate 102 /min Dr. Denise Cheng Work Phone: [facility] Work Phone: 10-06-2021 14:09-0400 Respiratory rate 16 /min Dr. Denise Cheng Work Phone: [facility] Work Phone: 10-06-2021 14:09-0400 SaO2% (BldA) [Mass fraction] 97 % Dr. Denise Cheng Work Phone: [facility] Work Phone: 10-06-2021 14:09-0400 Systolic blood pressure 123 mm[Hg] Dr. Denise Cheng Work Phone: [facility] Work Phone: Encounters Encounter Date Encounter Type Care Provider Facility Start: 11-19-2024 ambulatory Denise Cheng Facility:[facility] Start: 11-17-2024 Emergency department patient visit Denise Cheng Facility:[facility] Start: 10-31-2024 End: 10-31-[address] Denise Cheng MD Work Phone: [facility] Work Phone: Start: 10-31-2024 End: 10-31-[address] Denise Cheng MD -Laboratory [place] Work Phone: Start: 10-31-2024 End: 10-31-2024 ambulatory Denise Cheng Facility:[facility] Start: 10-07-2024 Encounter for other preprocedural examination Saul Bazan [facility] Start: 10-01-2024 End: 10-01-2024 Non-patient / Non-visit Dr. Giancarlo Hammer MD -[facility] Work Phone: Start: 10-01-2024 End: 10-01-[address] Denise Cheng MD Work Phone: [facility] Work Phone: Start: 10-01-2024 End: 10-01-[address] Saul Bazan DO -Pulmonary Services/Neurology Work Phone: Start: 10-01-2024 End: 10-01-2024 ambulatory Denise Cheng Facility:[facility] Start: 09-03-2024 End: 09-03-[address] Denise Cheng MD Work Phone: [facility] Work Phone: Start: 09-03-2024 End: 09-03-[address] Denise Cheng MD -Outpatient Breast Imaging Work Phone: Start: 09-03-2024 End: 09-03-2024 ambulatory Denise Cheng Facility:[facility] Start: 08-10-2024 End: 08-10-2024 Patient encounter procedure Farida Barrios NP-C [facility] Work Phone: Start: 08-10-2024 End: 08-10-2024 ambulatory Denise [place] Facility:[facility] Start: 07-29-2024 End: 07-29-2024 Patient encounter procedure Adilson ODOM -Laboratory, Specimen Work Phone: Start: 07-28-2024 End: 07-28-2024 Patient encounter procedure Adilson Cordova NP-C -[facility] Work Phone: Start: 07-28-2024 End: 07-29-2024 ambulatory Denise Cheng Facility:[facility] Start: 04-15-2024 End: 04-15-2024 ambulatory Denise Cheng Facility:[facility] Start: 01-25-2024 End: 01-25-2024 ambulatory Denise Cheng Facility:[facility] Start: 11-29-2023 End: 11-29-2023 ambulatory Denise Cheng Facility:[facility] Start: 08-15-2023 End: 08-15-[address] [facility] Work Phone: Start: 08-15-2023 End: 08-15-[address] [facility]-Outpatient Breast Imaging Work Phone: Start: 06-20-2023 End: 06-20-[address] [facility] Work Phone: Start: 06-20-2023 End: 06-20-[address] [facility]-Physical Therapy Work Phone: Start: 06-20-2023 Registered Recurring [facility] Work Phone: Start: 06-14-[address] Denise Cheng Work Phone: [facility] Therapy Work Phone: Start: 06-09-2023 End: 06-09-[address] Denise Cheng Work Phone: [facility] Work Phone: Start: 06-09-2023 End: 06-09-[address] Denise Cheng Work Phone: [facility]-Laboratory, [place] Work Phone: Start: 05-16-2023 End: 05-16-[address] Denise Cheng Work Phone: [facility]-Radiology, [place] Work Phone: Start: 04-03-2023 End: 04-03-[address] Denise Cheng Work Phone: [facility] Work Phone: Start: 02-01-2023 End: 02-01-2023 ambulatory JARED BERNARD Facility:[facility] Start: 02-01-2023 End: 02-01-2023 Subsequent hospital visit by physician [facility] Work Phone: Radiology Comment on above: Plantar fascial fibr omatosis [M72.2] Start: 01-12-2023 End: 01-12-[address] [facility] Work Phone: Start: 01-12-2023 End: 01-12-[address] [facility], [facility] Work Phone: Start: 11-12-2022 End: 11-12-[address] [facility] Work Phone: Start: 11-12-2022 End: 11-12-[address] [facility]-MRI - [facility] Start: 11-09-2022 End: 11-09-[address] [facility] Work Phone: Start: 11-09-2022 End: 11-09-[address] [facility] Start: 10-27-2022 End: 10-27-[address] [facility]-Physical Therapy Start: 09-22-2022 End: 09-22-[address] [facility] Work Phone: Start: 09-22-2022 End: 09-22-[address] [facility]-Radiology, [place] Start: 03-24-2022 End: 03-24-[address] Denise Cheng Work Phone: [facility] Work Phone: Start: 03-24-2022 End: 03-24-[address] Denise Cheng Work Phone: [facility]-Outpatient Breast Imaging Start: 01-20-2022 End: 01-20-[address] Denise Cheng Work Phone: [facility] Start: 01-13-2022 End: 01-13-[address] Denise Cheng Work Phone: [facility] Start: 10-21-2021 End: 10-21-[address] Denise Cheng Work Phone: [facility] Start: 10-19-2021 End: 10-19-[address] [facility] Start: 10-06-[address] Denise Cheng Work Phone: [facility] Start: 10-06-2021 End: 10-06-[address] Denise Cheng Work Phone: [facility] Start: 09-09-2021 End: 09-09-[address] Denise Cheng Work Phone: [facility] Start: 08-03-2021 End: 08-03-[address] Denise Cheng Work Phone: [facility] Start: 08-02-2021 End: 08-02-[address] Denise Cheng [facility] Start: 07-26-2021 End: 07-26-[address] Denise Cheng [facility] Start: 06-02-2017 End: 06-05-2017 Evaluation and management of inpatient LAMAR CARMEN Facility:A Start: 05-24-2017 End: 05-26-2017 Evaluation and management of inpatient LAMAR CARMEN Facility:A Start: 05-17-2017 End: 05-18-2017 Ambulatory LAMAR CARMEN Facility:[facility] Procedures Date Procedure Procedure Detail Performing Clinician Start: 10-31-[address] Martha Cheng MD Work Phone: Comment on above: Performed at: [facility] [place], [place] [id number] Director: Dominick De La Rosa PhD, Phone: [phone] Start: 09-03-2024 Screening mammography Gale Cheng MD [...] Start: 08-03-[address] Denise Cehng Work Phone: Start: 08-02-2021 Radiologic examinati on of knee Dr. Denise Cheng Work Phone: Start: 10-03-2018 Colonoscopy [facility] Work Phone: Plan of Treatment Date Care Activity Detail Author Start: 01-20-2030 Urine microalbumin profile DTa P,Tdap,Td Vaccine (2 - Td or Tdap) [facility] Start: 02-10-2023 Covid-19 Vaccine ( season) Covid-19 Vaccine ( season) [facility] Start: 02-10-2023 Influenza vaccination Influenza Vacc ine (#1) [facility] Start: 06-12-2022 Depression Assessment Depression Ass essment [facility] Start: 10-04-2019 Colonoscopy Colonoscopy [facility] Start: 10-04-2019 Colorectal Cancer Screening Colorectal Cancer Screening [facility] Start: 10-31-2015 Shingrix Vaccine (1 of 2) Shingrix V accine (1 of 2) [facility] Start: 2010 Cologuard (FIT-DNA) Cologuard (FIT-D NA) [facility] Start: [address] Colonography [facility] Start: 2010 Diabetes Screening Diabetes Screenin g [facility] Start: 2010 Fecal Occult Blood Fecal Occult Bloo d [facility] Start: 2010 Lipid 1996 panel - S zeyad or Plasma Lipid Screening [facility] Start: 2010 Sigmoidoscopy Sigmoidoscopy [facility] Start: 04-20-2010 HPV Testing HPV Testing [facility] Start: 04-20-2010 Pap Testing Pap Testing [facility] Start: 2005 Mammography Mammogram Screening [facility] Start: 10-31-1983 Hepatitis C Screening Hepatitis C Sc reening [facility] Start: 10-31-1983 HIV Screening HIV Screening [facility] Start: 1965 Hepatitis B Vaccine (1 of 3 - 3-dose series) Hepatitis B Vaccine (1 of 3 - 3-dose series) [facility] Immunizations Immunization Date Immunization Notes Care Provider Shantanu ho 03-08-2022 influenza virus vaccine, unspecified formulation [facility] Work Phone: [facility] 01-21-2020 tetanus toxoid, redu rima diphtheria toxoid, and acellular pertussis vaccine, adsorbed [facility] Work Phone: [facility] Work Phone: Payers Date Payer Category Payer Self-pay [id number] 2022 Unknown [employer]E SS PPO [id number] 2022-Present [phone] [facility] [id number] [place] [address] PPO [id number] 2017 Unknown [id number] 2017 Unknown [id number] 2013 Unknown [id number] Unknown [id number] Unknown [id number] Unknown [id number] Unknown [id number] Unknown [id number] Unknown [id number] Unknown [id number] Unknown [id number] Unknown [id number] Unknown [id number] Unknown [id number] Unknown [id number] Unknown [id number] Unknown [id number] Unknown [id number] Social History Date Type Detail Facility Start: 10-06-2021 End: 04-03-2023 Tobacco smoking status NHIS Unknown if ever smoked [facility] Start: 12-05-2019 Non-smoker [facility] Start: 1965 Sex Assigned At Female [facility] Start: 07-25-2017 End: 07-28-2024 Tobacco smoking status NHIS Never smoked tobacco [facility] Start: 07-25-2017 Tobacco use and exposure Smokeless tobacco non-user [facility] Start: 02-01-2023 Alcohol intake Current drinke r of alcohol (finding) [facility] Start: 02-01-2023 History of Social function [facility] Start: 02-01-[address] [facility] National Score (1-100), lower number is lower risk 65 [facility] Start: 1965 Sex Assigned At Not on file [facility] Start: 09-09-2024 End: 10-04-2024 Sex Female (finding) [facility] Goals Date Patient Goal Desired Activity /State Clinical Notes 02-01-2023 to 07-28-2024 Note Date & Type Note Facility 07-28-2024 Evaluation note Diagnosis Onset Date Resolution Urinary tract infection noneactive July 28 12:44pm Viral URI with cough acute Vineet h 2024 9:22am [facility] Work Phone: 1(685) 909-308704-05-2024 Discharge summary Author Ricardo Savlador [facility] September 15, 2023 8:26am Note Date/Time September 15, 2023 8:[address] [facility] Physical Therapy [address] [place] [address] / REHABILITATION SERVICES DISCHARGE SUMMARY MR#: [id number] Acct: [id number] Name: YUMIKO SINGH Rep #: [id number] : 1965 57 From: Ricardo Anna Referring Dr.: Dr. Denise Cheng MD Status: REG R Insurance: AN[employer] S[employer] PAY INSURANCE Patient Information Patient Information: [...] found appropriate by the physician. Thank you! KOFI CarlosT Balance/Gait/Functional tests Balance/Special Test Scores Lower Extremity Functional Score: 40 <Electronically signed by Ricardo Salvador DPT> 09/15/23 0826 CC: Dr. Denise Cheng MD ~ CLS Signed [facility] Work Phone: 1(379) 876-211208-23-2023 NoteHNO ID: [id number] Author: Sherlyn Garcia RN Service: ? Author [...] to utilize the above equipment. [facility] NoteHNO ID: [id number] Author: Jared Bernard Service: ? 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 Does not a (more content not included)...[facility] 02-01-2023 NoteHNO ID: [id number] Author: Sherlyn Garcia RN Service: ? Author [...] under her toes. XR completed today to review.[facility]08-23-2023 NoteHNO ID: [id number] Author: Estrellita Hoyt RT(R) Service: Radiology Author [...] BY: RT Rivas(R) February 01, 2023 1:[address] [facility]08-23-2023 History of Present illness Narrative* Estrellita [...] IV DATA: Not applicable SIGNED BY: RT Rvias(R) February 01, 2023 1:39 PM documented in [facility]* Diagnosis Onset Date Resolution Status Easy bruising chronic Splenomegaly chronic Easy bruising chronic Splenomegaly [facility] Work Phone: Evaluation note* Diagnosis Onset Date Resolution Status Splenomegaly [facility] Work Phone: Evaluation noteNo assessment information available [facility] Work Phone: Evaluation note* Diagnosis Plantar fascial fibromatosis documented in this encounter [facility] note* Diagnosis Onset Date Resolution Status Acute sinusitis, unspecified acute Contact with or exposure to other viral diseases acute [facility] Work Phone: Reason for referral (narrative)* Diagnostic Procedure Only (Routine) - Closed Specialty Diagnoses / Procedures Referred By Contac t Referred To Contact XR IMAGING Diagnoses Plantar fascial fibromatosis Procedures XR FOOT GENERAL 3V AP/LAT/OBL BILATERAL RADEX FOOT COMPLETE MINIMUM 3 VIEWS Jared Bernard [address] [place] [address] [place] [id number] Referral ID Status Reason Start Date Expiration Date V isits Requested Visits Authorized [id number] Closed Auto-Generate d Referral 01/30/2023 02/29/2024 1 1 [facility] for referral (narrative)No reason for referral information [facility]WM[facility] Work Phone: Reucml for visit Narrative* Diagnostic Procedure Only (Routine) - Closed Specialty Diagnoses / Procedures Referred By Contac t Referred To Contact XR IMAGING Diagnoses Plantar fascial fibromatosis Procedures XR FOOT GENERAL 3V AP/LAT/OBL BILATERAL RADEX FOOT COMPLETE MINIMUM 3 VIEWS Jared Bernard [address] [place] [address] [place] [id number] Referral ID Status Reason Start Date Expiration Date V isits Requested Visits Authorized [id number] Closed Auto-Generate d Referral 01/30/2023 02/29/2024 1 1 [facility] Summary Purpose Family History No Family History Records FoundNo Family History Records FoundNo Family History Records Found Advance Directives No Advanced Directives Records Found Advance Directive Response Recorded Date/ Time Living Will No December 05, 2019 11:10am Power of Client Relationship Consultant No December 04 0 11:10am Advance Directive Response Recorded Date/ Time Living Will No December 05, 2019 10:10am Power of Client Relationship Consultant No December 04 10:10am Chief Complaint and Reason for Visit [...] section and content) DATE CREATED AUTHOR 12/04/2017 [facility] DATE CREATED AUTHOR AUTHOR'S ORGANIZ ATION 02/05/2023 [facility] DATE CREATED AUTHOR AUTHOR'S ORGANIZ ATION 11/17/2024 [facility] Care Teams (unrecognized sec tion and [...] MD Attending Provider, Referrin g Provider Active Fender Repairer Relationship Specialty Start Date End Date Denise Cheng MD PCP - General Family Medicine 06/27/13 Team Status: Inactive Member Role Status Dates Dr. Denise Cheng MD Primary Care Provider, Referring P rovider Active Ashutosh Escalona PA, PA Attending Provider Active Team Status: Active Member Role Status Dates Dr. Denise Cheng MD Primary Care Provider, Attending P rolee Active Team Status: Inactive Member Role Status Dates Dr. Denise Cheng MD Primary Care Provider Active Ciera Granados PUBLIC ADDRESS TECHNICIAN-C Attending Provider, Referr ing Provider Active Team Status: Inactive Member Role Status Dates Dr. Denise Cheng MD Primary Care Provider, Attending P rovider Active Team Status: Active Member Role Status Dates Dr. Denise Cheng MD Primary Care Provider Active Team Status: Inactive Member Role Status Dates Dr. Denise Cheng MD Primary Care Provider Active Start: July 28, 2024 End: July 28, 2024 Dr. Denise Cheng MD Referring Provider Active St art: July 28, 2024 End: July 28, 2024 Adilson Cordova PUBLIC ADDRESS TECHNICIAN, PUBLIC ADDRESS TECHNICIAN-C Attending Provider Active S tart: July 28, 2024 End: July 28, 2024 Team Status: Inactive Member Role Status Dates Dr. Denise Cheng MD Primary Care Provider Active Start: July 29, 2024 End: July 29, 2024 Adilson Cordova NP, PUBLIC ADDRESS TECHNICIAN-C Attending Provider Active S tart: July 29, 2024 End: July 29, 2024 Team Status: Inactive Member Role Status Dates Dr. Denise Cheng MD Primary Care Provider Active Start: August 10, 2024 End: August 10, 2024 Dr. Denise Cheng MD Referring Provider Active St art: August 10, 2024 End: August 10, 2024 Farida Barrios NP-C Attending Provider Active Start: August 10, 2024 [...] or prosecute any alcohol or drug abuse patient.[facility] FOR RECORDS PERTAINING TO PATIENTS [...] BE BASED ON THE PRIMARY CLINICAL RECORDS. [employer] [facility]. provides no warranty or guarantee of the accuracy or completeness of information in this document.
[2024-11-17 23:01] LABS: Erythrocyte Sedimentation Rate 2 mm/hr (0-30)
[2024-11-17 23:07] LABS: CRP < 3.00 mg/L (0.0-3.0)
[2024-11-17] MEDS: 0.9% Normal Saline (1000mL) 1,000 ML 100 ML IV (23:12)
[2024-11-17] MEDS: traZODone 100 MG Tablet PO (23:12)
--- OUTSIDE RECORDS SUMMARY | 2024-11-17 23:22 | XMS RPT_ITS | CCD ---
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 Unavailable Unavailable CARMEN, LAMAR P. Unavailable Unavailable TREVON DERAS Unavailable Unavailable DENISE CHENG Unavailable Unavailable CARMEN, LAMAR PVikki Unavailable Unavailable HECTOR TORRES Unavailable Unavailable CARMEN, LAMAR P. Unavailable Unavailable CARMEN, LAMAR P. Unavailable Unavailable DENISE CHENG A Unavailable Unavailable CARMEN, LAMAR P. Unavailable Unavailable JEFFREY LEVIN Unavailable Unavailable KERMIT, LAMAR P. Unavailable Unavailable Dr. Denise Cheng Primary Care Provider Dr. Denise Cheng Referring Provider [phone] Cecilio Lopez Attending Provider Dr. Denise Cheng Primary Care Provider Dr. Denise Cheng Referring Provider [phone] Cecilio Lopez Attending Provider JARED BERNARD Attending Unavailable DENISE CHENG Primary Care Unavailable JARED BERNARD Referring Unavailable DENISE CHENG Primary Care Unavailable Prosper COHEN, Denise Pereira Primary Care Provider Dr. Denise Cheng Primary Care Provider Dr. Denise Cheng Referring Provider [phone] Iqra OMALLEY, SHAHRAM Bhardwaj Attending Provider Dr. Denise Cheng MD Primary Care Provider Dr. Denise Cheng MD Referring Provider Tasha ZACARIAS-CAdilson Attending Provider Denis FURNITURE SALESPERSON-CFarida Attending Provider Dr. Denise Cheng MD Attending Provider Dr. Saul Bazan DO Attending Provider Dr. Saul Bazan DO Referring Provider Dr. Giancarlo Hammer MD Attending Provider Dr. Natalia Felix DO Emergency Provider [phone] Dr. Esther Gaspar MD Admit Provider Dr. Esther Gaspar MD Attending Provider Cheng, Denise Attending Unavailable Cheng, Denise Primary Care Unavailable Cheng, Denise Referring Unavailable Cheng, Denise Primary Care Unavailable Esther Gaspar Admitting Unavailable Esther Gaspar Attending Unavailable Cheng, Denise Primary Care Unavailable Saul Bazan Attending Unavailable Saul Bazan Referring Unavailable Cheng, Denise Primary Care Unavailable Cheng, Denise Attending Unavailable Cheng, Denise Referring Unavailable Cheng, Denise Primary Care Unavailable Cheng, Denise Attending Unavailable Cheng, Denise Referring Unavailable Cheng, Denise Referring Unavailable Ashutosh Yang Attending Unavailable Cheng, Denise Primary Care Unavailable Cheng, Denise Referring Unavailable Cheng, Denise Primary Care Unavailable Adilson Cordova Attending Unavailable Cheng, Denise Referring Unavailable Farida Barrios Attending Unavailable Cheng, Denise Primary Care Unavailable Giancarlo Hammer Attending Unavailable Cheng, Denise Primary Care Unavailable Saul Bazan Referring Unavailable Esther Gaspar Consulting Unavailable Cheng, Denise Primary Care Unavailable Wagner Whitten Attending Unavailable Wagnre Whitten Referring Unavailable Cheng, Denise Referring Unavailable Cheng, Denise Attending Unavailable Cheng, Denise Primary Care Unavailable Cheng, Denise Primary Care Unavailable Adilson Cordova Attending Unavailable Allergies Allergy Classification Reported Allergen(s) Allergy Type Date of Onset Reaction(s) Facility (15 sources) Amoxicillin; Translations: [AMOXICILLIN] Drug Allergy 6 [facility] (16 sources) Sulfonamides (Antibiotic); Translations: [SULFA (SULFONAMIDE ANTIBIOTICS)] Allergy to substance 6 [facility] (13 sources) Verapamil Drug Allergy 2 lightheaded dizzy [facility] (13 sources) ZOLMitriptan Drug Allergy 2 ; [facility] (1 source) Amoxicillin Drug Allergy 5 [facility] Repository (1 source) Verapamil Drug Allergy 5 [facility] Repository (1 source) ZOLMitriptan Drug Allergy 5 [facility] Repository Medications Current Medications Medication Drug Class(es) Dates Sig (Normalized) Sig (Original) calcium ascorbate 500 mg oral tablet (13 sources) Start: 09-28-2021 take 1 tablet by [...] 2:02pm 1 ml erenumab-aooe 140 mg/ml auto-injector (13 sources) Start: 12-05-2019 inject 140 mg by subcutaneous injection every month Erenumab-Aooe 140 MG/ML auto-injector Active 140 mg SQ EVERY MONTH December 05, 2019 12:00am Start: 12-05-2019 inject 140 mg by sub cutaneous injection every month Erenumab-Aooe Active 140 MG SQ EVERY MONTH December 05, 2019 12:00am lansoprazole 15 mg delayed release oral capsule (1 source) Proton Pump Inhibitor Start: 11-17-2024 Lansoprazole (Prevacid 24hr) 15 mg capsule,delayed release(DR/EC) Active 20 mg PO DAILY November 17, 2024 12:00am magnesium oxide 500 mg oral capsule (14 sources) Start: 10-06-2021 take 2 capsules by mouth once daily Magnesium Oxide 500 mg capsule Active 1000 mg PO DAILY October 06, 2021 12:00am Start: 10-06-2021 take 1000 mg by mouth once you ly Magnesium Oxide Active 1000 MG PO DAILY October 06, 2021 12:00am take 1 capsule by [facility] twice daily magnesium oxide 400 mg cap Take 1 capsule by mouth twice daily. 0 Active Comment on above: Take 1 capsule by [facility] twice daily. 24 hr methylphenidate hydrochloride 27 mg extended release oral tablet (13 sources) Central Nervous System Stimulant Start: 10-01-2018 Methylphenidate Hcl 27 MG tablet extended release 24hr Active 36 mg PO DAILY October 01, 2018 12:00am Start: 10-01-2018 take 1 tablet by oleksandr th once daily Methylphenidate Hcl 27 MG tablet extended release 24hr Active 27 mg PO DAILY October 01, 2018 12:00am Pnv,Calcium 56-Xroj-Rxjda Ac id ( Vitamin Plus Low Iron) 27 mg iron- 1 mg tablet (12 sources) Start: 09-28-2021 Pnv,Calcium 72 -Iron-Folic Acid ( [...] Active EACH PO September 28, 2021 12:00am Pnv,Calcium 51-Wsea-Hnpob Acid 27 mg iron- 1 mg tablet (1 source) Start: 09-28-2021 Pnv,Calcium 53-Nmhw-Ioxcy Acid 27 mg iron- 1 mg tablet Active NMA PO DAILY September 28, 2021 12:00am rizatriptan 10 mg oral tablet (7 sources) Serotonin-1b and Serotonin-1d Receptor Agonist Start: 01-27-2023 Rizatriptan 10 mg tablet Active 10 mg PO .COMPLEX as needed for migraine headache January 27, 2023 12:00am 10 mg orally [...] 06, 2021 12:00am Vitamin B Complex tablet (4 sources) Start: 10-06-2021 Vitamin B Comp herlinda [...] tablets daily azithromycin 250 mg oral tablet (11 sources) Macrolide Antimicrobial Start: 04-03-2023 End: 08-10-2024 Azithromycin 250 mg tablet Discontinued 250 mg PO .COMPLEX 12 April 15, 2024 1:00am August 10, 2024 [...] as needed. benzonatate 200 mg oral capsule (11 sources) Non-narcotic Antitussive Start: 04-03-2023 End: 08-10-2024 take 1 capsule by mouth three times daily as needed for cough Benzonatate 200 mg capsule Discontinued 200 mg PO THREE TIMES A DAY as needed for cough April 15, 2024 1:00am August 10, 2024 10:38am cholecalciferol 0.025 mg oral capsule (13 sources) Vitamin D Start: 09-28-2021 End: 10-06-2021 [...] at HS famotidine 40 mg oral tablet (14 sources) Histamine-2 Receptor Antagonist Start: 06-01-2017 End: [...] daily. hydrOXYzine hydrochloride 25 mg oral tablet (13 sources) Antihistamine Start: 09-28-2021 End: 10-06-2021 Hydroxyzine [...] Take by mouth as nee ded. Magnesium (13 sources) Start: 019 End: take 500 mg [...] 1 tablet by oleksandr th once daily. Multivitamin capsule (1 source) take [...] / nitrofurantoin, monohydrate 75 mg oral capsule (4 sources) Nitrofuran Antibacterial Start: 07-28-2024 End: 08-04-2024 [...] daily Pantoprazole Discontinued 40 MG PO DAILY 60 December 11, 2019 12:00am January 27, 2023 8:07am Take 40mg PO qday x 1 month then ok to switch to 20 mg PO daily if symptoms are controlled phenazopyridine hydrochloride 100 mg oral tablet (5 sources) Start: 07-28-2024 End: 08-10-2024 take 1 [...] once daily. SUMAtriptan 100 mg oral tablet (14 sources) Serotonin-1b and Serotonin-1d Receptor Agonist Start: [...] Date Documented Da te Episodic/Chronic Abdominal pain (14 sources) Abdominal pain; Translations: [Unspecified abdominal pain] Onset: 11-17-2024 10-12-2021 Episodic Genitourinary symptoms and ill-defined conditions (5 sources) Dysuria; Translations: [Dysuria] Onset: 08-12-2024 07-28-2024 Episodic Immunizations and screening for infectious disease (9 sources) Contact with or exposure to other viral diseases; Translations: [Other specified abnormal immunological findings in serum] Onset: 11-06-2024 04-03-2023 Episodic Joint disorders and dislocations; trauma-related (13 sources) Subluxation complex of cervical vertebra; Translations: [Subluxation complex (vertebral) of cervical region] 10-18-2018 Episodic Nonspecific chest pain (4 sources) Chest pain; Translations: [Chest pain, unspecified] Onset: 11-17-2024 11-17-2024 Episodic Other bone disease and musculoskeletal deformities (20 sources) Segmental and somatic dysfunction; Translations: [Segmental and somatic dysfunction of cervical region] 10-22-2018 Episodic Other connective tissue disease (1 source) Plantar fascial fibromatosis; Translations: [Plantar fascial fibromatosis] Onset: 02-01-2023 Episodic Other connective tissue disease (1 source) Plantar fascial fibromatosis; Translations: [Plantar fascial fibromatosis] 02-01-2023 Episodic Other gastrointestinal disorders (13 sources) Splenomegaly; Translations: [Splenomegaly, not elsewhere classified] 10-06-2021 Episodic Other gastrointestinal disorders (3 sources) Splenomegaly, not elsewhere classified; Translations: [Splenomegaly] Episodic Other nervous system disorders (1 source) Other hereditary and idiopathic neuropathies; Translations: [Other hereditary and idiopathic neuropathies] Onset: 12-07-2023 Chronic Other screening for suspected conditions (not mental disorders or infectious disease) (2 sources) Raised cardiac enzyme or marker; Translations: [Other specified abnormal findings of blood chemistry] Onset: 09-09-2024 11-17-2024 Episodic Other skin disorders (13 sources) Easy bruising; Translations: [Other skin changes] 10-06-2021 Episodic Other skin disorders (2 sources) Other skin changes; Translations: [Other symptoms involving skin and integumentary tissues] Episodic Other upper respiratory infections (17 sources) Acute sinusitis; Translations: [Acute sinusitis, unspecified] Onset: 08-10-2024 04-03-2023 Episodic Spondylosis; intervertebral disc disorders; other back problems (20 sources) Degeneration of lumbar intervertebral disc; Translations: [Other intervertebral disc degeneration, lumbar region] 08-10-2020 Chronic Spondylosis; intervertebral disc disorders; other back problems (13 sources) Backache; Translations: [Dorsalgia, unspecified] 02-24-2020 Episodic Urinary tract infections (5 sources) Urinary tract infectious disease; Translations: [Urinary tract infection, site not specified] Onset: 07-28-2024 07-28-2024 Episodic Past or Other Problems Problem Classification Problem Date Documented Da te Episodic/Chronic Other nutritional; endocrine; and metabolic disorders (1 source) Abnormal weight gain; Translations: [Abnormal weight gain] Onset: 02-15-2024 Episodic Results Test Name Value Interpretation Reference Range Facility Absolute lymphocyte countOrd ered By: Natalia Felix on 11-17-2024 Lymphocytes Auto (Unsp spec) [#/Vol] 3.43 10*3/uL 0.83-4.51 [facility] Absolute neutrophil countOrd ered By: Natalia Felix on 11-17-2024 Neutrophils (Bld) [#/Vol] 3.0 10*3/uL 2.0-7.7 [facility] Anion gap in Serum or Plasma Ordered By: Natalia Felix on 11-17-2024 Anion gap [Moles/Vol] 12 mmol/L 5-15 [facility] Automated lymphocyte count a s percentage of total leukocytesOrdered By: Natalia Felix on 11-17-2024 Lymphocytes/100 WBC Auto (Unsp spec) 46.6 % High 19-41 [facility] BUN/creatinine ratioOrdered By: Natalia Felix on 11-17-2024 Urea nitrogen/Creatinine [Mass ratio] 16.7 mg/mg - [facility] Basic Metabolic Profile (BMP )on 11-17-2024 BUN/CRE 16.7 RATIO Normal 03-31 [facility] Comment on above: Performed By: #### L 500.2500, L501.2450, L500.3400 ####[facility] [address] [place], [address] Calcium [Mass/Vol] 9.6 mg/dL Normal 7.6-11.0 [facility] Comment on above: Performed By: #### L 500.2500, L501.2450, L500.3400 ####[facility] [address] [place], [address] Chloride [Moles/Vol] 104 mmol/L Normal 98-108 [facility] Comment on above: Performed By: #### L 500.2500, L501.2450, L500.3400 ####[facility] [address] [place], [address] CO2 [Moles/Vol] 26.2 mmol/L Normal 21.0-32.0 [facility] Comment on above: Performed By: #### L 500.2500, L501.2450, L500.3400 ####[facility] [address] [place], [address] Creatinine [Mass/Vol] 0.81 mg/dL Normal 0.70-1.20 [facility] Comment on above: Performed By: #### L 500.2500, L501.2450, L500.3400 ####[facility] [address] [place], [address] ECRCL 78.15 ml/min Normal 50-250 [facility] Comment on above: Performed By: #### L 500.2500, L501.2450, L500.3400 ####[facility] [address] [place], [address] GAP 12 Normal 5-15 [facility] Comment on above: Performed By: #### L 500.2500, L501.2450, L500.3400 ####[facility] [address] [place], [address] GFR/1.73 sq M.predicted among non-blacks MDRD (S/P/Bld) [Vol rate/Area] 84 mL/min/{1.73_m2} Normal >60 [facility] Comment on above: Result Comment: mL/m in/1.73m2 CKD-EPI Creatinine Equation (2020) Performed By: #### L 500.2500, L501.2450, L500.3400 ####[facility] [address] [place], [address] Glucose [Mass/Vol] 130 mg/dL High 70-99 [facility] Comment on above: Performed By: #### L 500.2500, L501.2450, L500.3400 ####[facility] [address] [place], [address] Potassium [Moles/Vol] 4.0 mmol/L Normal 3.3-5.1 [facility] Comment on above: Performed By: #### L 500.2500, L501.2450, L500.3400 ####[facility] [address] [place], [address] Sodium [Moles/Vol] 142 mmol/L Normal 133-145 [facility] Comment on above: Performed By: #### L 500.2500, L501.2450, L500.3400 ####[facility] [address] [place], [address] Urea nitrogen [Mass/Vol] 14 mg/dL Normal 4-19 [facility] Comment on above: Performed By: #### L 500.2500, L501.2450, L500.3400 ####[facility] [address] [place], [address] Basophil percentageOrdered B y: Natalia Felix on 11-17-2024 Basophils/100 WBC (Bld) 0.7 % 0-1 [facility] Bilirubin directOrdered By: Natalia Felix on 11-17-2024 Bilirubin.direct [Mass/Vol] 0.20 mg/dL 0.00-0.30 [facility] Bilirubin, totalOrdered By: Natalia Felix on 11-17-2024 Bilirubin [Mass/Vol] 0.58 mg/dL 0.00-1.30 [facility] CBC W/Diff, Automatedon Absolute Lymph 3.43 X10 3/uL Normal 0.83-4.51 [facility] Comment on above: Performed By: #### L 501.4021, L100.0100 ####[facility] [address] [place], [address] Absolute Neut 3.0 X10 3/uL Normal 2.0-7.7 [facility] Comment on above: Performed By: #### L 501.4021, L100.0100 ####[facility] [address] [place], [address] Basophils/100 WBC (Bld) 0.7 % Normal 0-1 [facility] Comment on above: Performed By: #### L 501.4021, L100.0100 ####[facility] [address] [place], [address] Eosinophils/100 WBC (Bld) 2.0 % Normal 0-5 [facility] Comment on above: Performed By: #### L 501.4021, L100.0100 ####[facility] [address] [place], [address] Erythrocyte distribution width (RBC) [Ratio] 12.9 % Normal 11.6-14.6 [facility] Comment on above: Performed By: #### L 501.4021, L100.0100 ####[facility] [address] [place], [address] Hematocrit (Bld) [Volume fraction] 41.6 % Normal 37-47 [facility] Comment on above: Performed By: #### L 501.4021, L100.0100 ####[facility] [address] [place], [address] Hemoglobin (Bld) [Mass/Vol] 13.9 g/dL Normal 12.0-15.0 [facility] Comment on above: Performed By: #### L 501.4021, L100.0100 ####[facility] [address] [place], [address] IG% 0.100 Normal 0.0-0.9 [facility] Comment on above: Result Comment: IG% - Immature Granulocytes (promyelocytes, myelocytes and metamyelocytes) > 1% indicates that a LEFT SHIFT is Present. Performed By: #### L 501.4021, L100.0100 ####[facility] [address] [place], [address] Lymphocytes/100 WBC (Bld) 46.6 % High 19-41 [facility] Comment on above: Performed By: #### L 501.4021, L100.0100 ####[facility] [address] [place], [address] MCH (RBC) [Entitic mass] 31.7 pg Normal 27.0-32.0 [facility] Comment on above: Performed By: #### L 501.4021, L100.0100 ####[facility] [address] [place], [address] MCHC (RBC) [Mass/Vol] 33.4 g/dL Normal 32-36 [facility] Comment on above: Performed By: #### L 501.4021, L100.0100 ####[facility] [address] [place], [address] MCV (RBC) [Entitic vol] 95.0 fL Normal 81-99 [facility] Comment on above: Performed By: #### L 501.4021, L100.0100 ####[facility] [address] [place], [address] Monocytes/100 WBC (Bld) 10.2 % High 0-10 [facility] Comment on above: Performed By: #### L 501.4021, L100.0100 ####[facility] [address] [place], [address] Neutrophils/100 WBC (Bld) 40.4 % Low 47-70 [facility] Comment on above: Performed By: #### L 501.4021, L100.0100 ####[facility] [address] [place], [address] Nucleated RBC (Bld) [#/Vol] 0 10*3/uL Normal 0-5 [facility] Comment on above: Performed By: #### L 501.4021, L100.0100 ####[facility] [address] [place], [address] Platelet mean volume (Bld) [Entitic vol] 9.3 fL Normal 6.2-12.0 [facility] Comment on above: Performed By: #### L 501.4021, L100.0100 ####[facility] [address] [place], [address] Platelets (Bld) [#/Vol] 308 10*3/uL Normal 150-450 [facility] Comment on above: Performed By: #### L 501.4021, L100.0100 ####[facility] [address] [place], [address] RBC (Bld) [#/Vol] 4.38 10*6/uL Normal 4.2-5.4 [facility] Comment on above: Performed By: #### L 501.4021, L100.0100 ####[facility] [address] [place], [address] RDW SD 44.7 fl High 35.1-43.9 [facility] Comment on above: Performed By: #### L 501.4021, L100.0100 ####[facility] [address] [place], [address] WBC (Bld) [#/Vol] 7.4 10*3/uL Normal 4.4-11.0 [facility] Comment on above: Performed By: #### L 501.4021, L100.0100 ####[facility] [address] [place], [address] CTA Chest W/WO Contraston CTA Chest W/WO Contrast [facility] Imaging Services [address] [place] [address] CTA Chest W/WO Contrast MR#: [id number] Acct: [id number] Name: YUMIKO SINGH Rep #: [id number] : 1965 F 59 From: Jacqueline Amor nd, MD PCP: Dr. Denise Cheng MD Status: [facility] ER Study: CTA Chest W/WO Contrast Date of Exam: 11/17/24 Exam# [id number] Ordering Dr: Natalia Felix DO PROCEDURE: CTA CHEST W/WO CONTRAST 11/17/2024 REASON FOR EXAM: LEFT SIDED PLEURITIC CHEST PAIN TECHNIQUE: CTA axial imaging of the chest with intravenous contrast. Coronal and Sagittal reconstruction series were provided. 3D, 3D post processing, 3D reconstructions, Maximum intensity projection (MIPs) Volume rendering and Shaded surface rendering was provided. PATIENT PREPARATION: Per protocol CONTRAST: Isovue 370 VOLUME: 100mL One or more dose reduction techniques were used (e.g., Automated exposure control, adjustment of the mA and/or kV according to patient size, use of iterative reconstruction technique). RADIATION DOSE SUMMARY: CTDlvol: 24 mGy DLP: 500 mGycm COMPARISON: CT chest, abdomen and pelvis 10/19/2021. FINDINGS: Hardware: None. Lymph nodes: No axillary, mediastinal or hilar lymphadenopathy. Heart: The heart is normal in size without pericardial effusion. There is ectasia of the main pulmonary artery measuring 3.7 cm. No significant coronary artery calcifications. Pulmonary Vessels: No central filling defects in the segmental or subsegmental pulmonary arteries. Lungs and Airways: The central airways are patent. Bibasilar atelectasis and trace left pleural effusion. Mildly enlarged distal pulmonary arteries, greatest within the bibasilar lungs. No pneumothorax. Upper Abdomen: Prominent periportal nodes. Bones: Mild thoracic spondylosis. CT/CTA Chest W/WO Contrast IMPRESSION: 1. No acute pulmonary embolism. 2. Ectasia of the main pulmonary artery and enlargement of the distal pulmonary arteries, which can be seen with pulmonary hypertension. 3. Trace left pleural effusion. Reading Location: [facility] CC: Dr. Natalia Felix DO; Dr. Denise Cheng MD Crm Technical Lead: Signed Normal [facility] Carbon dioxide, total [Moles /volume] in Central venous bloodOrdered By: Natalia Felix on 11-17-2024 CO2 [Moles/Vol] 26.2 mmol/L 21.0-32.0 [facility] Chest PA and Lateralon 11-17 Chest PA and Lateral [facility] Imaging Services [address] [place] [address] Chest PA and Lateral MR#: [id number] Acct: [id number] Name: YUMIKO SINGH Rep #: [id number] : 1965 F 59 From: Jacqueline Amor nd, MD PCP: Dr. Denise Cheng MD Status: [facility] ER Study: Chest PA and Lateral Date of Exam: 11/17/24 Exam# [id number] Ordering Dr: Natalia Felix DO PROCEDURE: CHEST [...] Lateral IMPRESSION: NO ACUTE FINDINGS. Reading Location: [id number] CC: Dr. Natalia Felix DO; Dr. Denise Cheng MD Crm Technical Lead: Signed Normal [facility] Chloride assayOrdered By: Norman Felix on 11-17-2024 Chloride [Moles/Vol] 104 mmol/L 98-108 [facility] D-Dimer Quantitative (DVT/PE )on 11-17-2024 D-DIMER QUANT 0.30 FEU/ug/m Normal 0.27-0.49 [facility] Comment on above: Result Comment: NORM AL D-Dimer level (<0.50) indicates no DVT or PE. Performed By: #### L 300.8000 ####[facility] [address] [facility] [place], [address] Emergency Department Summary on 11-17-2024 Emergency Department Summary [facility] Medical Records Department [address] [place] [address] Emergency Department Summary 11/17/24 MR#: [id number] Acct: [id number] Name: YUMIKO SINGH Rep #: [id number] : 1965 59 From: Natalia Felix DO PCP: Dr. Denise Cheng MD Status:REG ER Location: ED HPI History of Present Illness Chief Complaint: Chest Pain Informant: patient Narrative Narrative: Patient is a 59-year-old female presenting with sudden onset of chest pain that started approximate 2 hours prior to arrival. She has this pain underneath her left rib/breast. Is up to her neck into her trapezius area. She states she was riding in the car when it started. She never any like this before. Pain is worse with movement as well as deep breathing. Denies any swelling of her legs. Did not take any for her pain prior to arrival. Denies any cardiac or pulmonary history. Denies history of DVT. Notes this year she has had an unintentional 20 pound weight loss but denies any abdominal pain. She notes that her primary care doctor did recently order her an outpatient ultrasound which she thinks was to look at her gallbladder but she has not had that done yet. She denies any change in her pain with eating. She denies any urinary symptoms. No associated nausea or vomiting. Came in for further evaluation. She states that she is supposed to have meniscus repair surgery on her knee this coming Monday. [facility] Medical History (Updated 11/17/24 @ 22:[address] Natalia Felix, DO) ADHD Anxiety and depression Hx of migraines Splenomegaly Easy bruising Arthritis Home Medications ???Medication ???Instructions ???Recorded ???Last Taken ???Type methylphenidate HCl 27 mg 27 mg PO DAILY ADD 10/01/18 Unknow n History tablet,extended release 24 hr trazodone 100 mg tablet 100 mg PO QHS 10/01/18 Unknown His tory erenumab-aooe 140 mg/mL 140 mg SQ QMONTH 12/05/19 Unknown History subcutaneous auto-injector ascorbate calcium (vitamin C) 500 500 mg PO DAILY 09/28/21 Unknown History mg tablet vitamin with calcium ea PO 09/28/21 Unknown History no.72-iron 27 mg-folic acid 1 mg tablet duloxetine 40 mg capsule,delayed 40 mg PO DAILY 10/06/21 Unknown Hi story release magnesium oxide 500 mg capsule 1,000 mg PO DAILY 10/06/21 Unknown History vitamin B complex 1 tab PO DAILY 10/06/21 Unknown Hi story rizatriptan 10 mg tablet 10 mg PO .COMPLEX PRN 01/27/23 Unk nown History lansoprazole 15 mg capsule,delayed 20 mg PO DAILY 11/17/24 Unknown History release (Prevacid 24Hr) Allergy/AdvReac Type Severity Reaction Status Date / Time amoxicillin Allergy Hives Verified 11/17/24 16:43 Sulfa (Sulfonamide Allergy Hives Verified 11/17/24 16:43 Antibiotics) zolmitriptan (From Zomig) Allergy ; Verified 11/17/24 16:43 verapamil AdvReac lightheaded Verified 11/17/24 16:43 dizzy Surgical History History of hysterectomy History of [...] do you feel safe at home: Yes ROS ROS ED Constitutional Constitutional ED: Denies chills or fever(s) Cardiovascular Cardiovascular: Reports as per HPI and chest pain Respiratory/Chest Respiratory/Chest: Reports dyspnea; Denies cough Gastrointestinal Gastrointestinal: Denies diarrhea, nausea or vomiting Musculoskeletal Musculoskeletal: Reports back pain and neck pain Integumentary Denies rash Neurologic Neurologic: Denies paresthesias or weakness Psychiatric Psychiatric: Reports anxiety Hematologic/Lymphatic Hematologic/Lymphatic: Denies easy bleeding or easy bruising EXAM Physical Exam Const Vital Signs: 11/17/24 16:43 11/17/24 16:45 11/17/24 17:43 Temperature 98.2 F Temperature Source Oral Pulse Rate 92 88 Respiratory Rate 22 H 16 Respiratory Effort Short of Breath Blood Pressure 152/93 H 132/94 H Blood Pressure Mean 112 106 Pulse Ox 97 98 Oxygen Delivery Method Room Air 11/17/24 17:54 11/17/24 18:00 11/17/24 19:00 Temperature Temperature Source Pulse Rate 82 79 Respiratory Rate 16 15 Respiratory Effort Blood Pressure 117/83 H 113/81 H Blood Pressure Mean 94 91 Pulse Ox 97 94 Oxygen Delivery Method Room Air Room Air Room Air 11/17/24 20:00 11/17/24 20:25 11/17/24 21:00 Temperatur (more content not included)... Normal [facility] Eosinophil percentageOrdered By: Natalia Felix on 11-17-2024 Eosinophils/100 WBC (Bld) 2.0 % 0-5 [facility] Erythrocyte distribution wid th ratioOrdered By: Natalia Felix on 11-17-2024 Erythrocyte distribution width (RBC) [Ratio] 12.9 % 11.6-14.6 [facility] Erythrocyte distribution wid th standard deviationOrdered By: Natalia Felix on 11-17-2024 Erythrocyte distribution width (RBC) [Ratio] 44.7 fl High 35.1-43.9 [facility] Glomerular filtration rate ( GFR) estimation/1.73 sq m using serum, plasma, or whole bOrdered By: Natalia Felix on 11-17-2024 GFR/1.73 sq M.predicted among non-blacks MDRD (S/P/Bld) [Vol rate/Area] 84 mL/min/{1.73_m2} >60 [facility] Comment on above: mL/min/1.73m2 CKD-EP I Creatinine Equation (2020) H AND P Exam - [facility] 11-17-2024 H&P Exam - Hospitalist [facility] Medical Records Department [address] [place] [address] H P Exam - Hospitalist 11/17/243 MR#: [id number] Acct: [id number] Name: YUMIKO SINGH Rep #: [id number] : 1965 59 From: Esther Gaspar MD PCP: Dr. Denise Cheng MD Status:ADM IN Location: [place] [address] HPI - General General Date of Admission: 11/17/24 Date of Service: 11/17/24 Chief Complaint: Chest pain HPI Narrative The patient is a 59 y/o F w/ PMHx: Anxiety and Depression/ADHD, Chronic migraines, OA who presents to the [facility] ED on 11/17/2024 with history of onset chest discomfort starting approximately 2 hours prior to ED arrival specifically under the left rib/breast region radiating up into the neck as well as the trapezius region noted that she was in the car when it started never having had this before noted to be worse with activity including movement and deep inspiratory effort prompting ED evaluation. She does state upon arrival an unintentional 20 pound weight loss over this last year but has had no GI symptoms. She did have a recent PCP evaluation with an outpatient ultrasound but is not yet had it performed. She does report that she is post to have an upcoming meniscal repair on her knee this coming Monday outpatient. Workup in the ED included T98.2, heart 92, BP 152/93, respiratory rate 22, 97% on room air with most recent repeat vitals heart rate 79, BP 110/73, respiratory rate 16, 95% on room air, CBC with WBC 7.4, hemoglobin 13.9, platelet 308 without marked shift, D-dimer 0.30, CMP with glucose 130, AST/ALT 37/44, hepatic profile otherwise unremarkable, lipase 40, troponin initial 76 with repeat delta 69, chest x-ray with no acute cardiopulmonary findings, CTPA with no acute pulmonary emboli, ectasia of the main pulmonary artery and enlargement of distal pulmonary arteries seen with possible pulmonary hypertension, trace left pleural effusion, EKG with SR without acute evidence of ischemia. In the ED patient ministered 1 L normal saline, full-strength aspirin therapy, morphine 4 mg IV x 1, sublingual nitroglycerin, Ativan 0.5 mg IV x 1, fentanyl 50 mcg IV x 1, cyclobenzaprine 10 mg p.o. x 1. [facility] Medical History ADHD Anxiety and depression Hx of migraines Splenomegaly Easy bruising Arthritis Home Medications ???Medication ???Instructions ???Recorded ???Last Taken ???Type methylphenidate HCl 27 mg 36 mg PO DAILY ADD 10/01/18 Unknow n History tablet,extended release 24 hr trazodone 100 mg tablet 100 mg PO QHS 10/01/18 Unknown His tory erenumab-aooe 140 mg/mL 140 mg SQ QMONTH 12/05/19 Unknown History subcutaneous auto-injector ascorbate calcium (vitamin C) 500 500 mg PO DAILY 09/28/21 Unknown History mg tablet vitamin with calcium ea PO DAILY 09/28/21 Unknown Histo ry no.72-iron 27 mg-folic acid 1 mg tablet duloxetine 40 mg capsule,delayed 40 mg PO DAILY 10/06/21 Unknown Hi story release magnesium oxide 500 mg capsule 1,000 mg PO DAILY 10/06/21 Unknown History vitamin B complex 1 tab PO DAILY 10/06/21 Unknown Hi story rizatriptan 10 mg tablet 10 mg PO .COMPLEX PRN migraine Unknown History headache lansoprazole 15 mg capsule,delayed 20 mg PO DAILY 11/17/24 Unknown History release (Prevacid 24Hr) Allergy/AdvReac Type Severity Reaction Status Date / Time amoxicillin Allergy Hives Verified 11/17/24 16:43 Sulfa (Sulfonamide Allergy Hives Verified 11/17/24 16:43 Antibiotics) zolmitriptan (From Zomig) Allergy ; Verified 11/17/24 16:43 verapamil AdvReac lightheaded Verified 11/17/24 16:43 dizzy Family History Mother Thyroid disorder Father , young in the . No medical history. No problems noted. Surgical History History of hysterectomy History of [...] do you feel safe at home: Yes ROS ROS Narrative Admission Review of Systems: CONSTITUTIONAL: No weight loss, fever, chills, + weakness or fatigue. HEENT: Eyes: No visual loss, blurred vision, double vision or yellow sclerae. Ears, Nose, Throat: No hearing loss, sneezing, congestion, runny nose or sore throat. SKIN: No rash or itching, lesions, wounds. CARDIOVAS (more content not included)... Normal [facility] Hematocrit Auto (Bld) [Volum e fraction]Ordered By: Natalia Felix on 11-17-2024 Hematocrit (Bld) [Volume fraction] 41.6 % 37-47 [facility] Hemoglobin measurementOrdere d By: Natalia Felix on 11-17-2024 Hemoglobin (Bld) [Mass/Vol] 13.9 g/dL 12.0-15.0 [facility] Immature granulocytes/100 WB C Auto (Bld)Ordered By: Natalia Felix on 11-17-2024 Immature granulocytes/100 WBC (Bld) 0.100 % 0.0-0.9 [facility] Comment on above: IG% - Immature Granu locytes (promyelocytes, myelocytes and metamyelocytes) > 1% indicates that a LEFT SHIFT is Present. L499.0042on 11-17-2024 Trop T High Sen 69 ng/L Invalid Interpretation Code <=14 [facility] Comment on above: Result Comment: Crit ical Result(s) Called HORR at: 2017 by: MILLICENT??Results read back by same. Performed By: #### L 499.0042 ####[facility] [address] [place], [address] L499.0043on 11-17-2024 Trop T High Sen 54 ng/L Invalid Interpretation Code <=14 [facility] Comment on above: Result Comment: Crit ical Result(s) Called at 2220: by: NBURNS TO ETEAL??Results read back by same. Performed By: #### L 499.0043 ####[facility] [address] [place], [address] L501.4021on 11-17-2024 Trop T High Sen 76 ng/L Invalid Interpretation Code <=14 [facility] Comment on above: Result Comment: Crit ical Result(s) Called HORR at: 2017 by: MILLICENT??Results read back by same. Performed By: #### L 501.4021, L100.0100 ####[facility] [address] [place], [address] Laboratory - Chemistry and C hemistry - challengeOrdered By: Natalia Felix on 11-17-2024 AST [Catalytic activity/Vol] 37 U/L High <32 [facility] Lipaseon 11-17-2024 Lipase [Catalytic activity/Vol] 40 U/L Normal 13-75 [facility] Comment on above: Result Comment: Radha garcia note: LIPASE revised reference range effective 22. New Lipase methodology. Expected to produce lower values than the previous assay method. NEW Reference Range: 13 - 75 U/L Performed By: #### L 500.2500, L501.2450, L500.3400 ####[facility] [address] [place], [address] Lipase measurementOrdered By : Natalia Felix on 11-17-2024 Lipase [Catalytic activity/Vol] 40 U/L 13-75 [facility] Comment on above: Please note:LIPASE r evised reference range effective 22. New Lipase methodology. Expected to produce lower values than the previous assay method. NEW Reference Range: 13 - 75 U/L Liver Profileon 11-17-2024 Albumin [Mass/Vol] 4.5 g/dL Normal 3.5-5.0 [facility] Comment on above: Performed By: #### L 500.2500, L501.2450, L500.3400 ####[facility] [address] [place], [address] ALK PHOS 68 U/L Normal 35-104 [facility] Comment on above: Performed By: #### L 500.2500, L501.2450, L500.3400 ####[facility] [address] [place], [address] ALT [Catalytic activity/Vol] 44 U/L High <=34 [facility] Comment on above: Performed By: #### L 500.2500, L501.2450, L500.3400 ####[facility] [address] [place], [address] AST [Catalytic activity/Vol] 37 U/L High <=31 [facility] Comment on above: Performed By: #### L 500.2500, L501.2450, L500.3400 ####[facility] [address] [place], [address] Bilirubin [Mass/Vol] 0.58 mg/dL Normal 0.00-1.30 [facility] Comment on above: Performed By: #### L 500.2500, L501.2450, L500.3400 ####[facility] [address] [place], [address] Bilirubin.direct [Mass/Vol] 0.20 mg/dL Normal 0.00-0.30 [facility] Comment on above: Performed By: #### L 500.2500, L501.2450, L500.3400 ####[facility] [address] [place], [address] Globulin (S) [Mass/Vol] 3.0 g/dL Normal 2.2-4.2 [facility] Comment on above: Performed By: #### L 500.2500, L501.2450, L500.3400 ####[facility] [address] [place], [address] T PROT 7.5 g/dL Normal 5.9-8.4 [facility] Comment on above: Performed By: #### L 500.2500, L501.2450, L500.3400 ####[facility] [address] [place], [address] MCV (mean corpuscular volume ) determinationOrdered By: Natalia Felix on 11-17-2024 MCV (RBC) [Entitic vol] 95.0 fL 81-99 [facility] Mean corpuscular hemoglobin (MCH) determinationOrdered By: Natalia Felix on 11-17-2024 MCH (RBC) [Entitic mass] 31.7 pg 27.0-32.0 [facility] Mean corpuscular hemoglobin concentration (MCHC) determinationOrdered By: Natalia Felix on 11-17-2024 MCHC (RBC) [Mass/Vol] 33.4 g/dL 32-36 [facility] Mean platelet volume determi nationOrdered By: Natalia Felix on 11-17-2024 Platelet mean volume (Bld) [Entitic vol] 9.3 fL 6.2-12.0 [facility] Monocyte percentageOrdered B y: Natalia Felix on 11-17-2024 Monocytes/100 WBC (Bld) 10.2 % High 0-10 [facility] Neutrophil percentageOrdered By: Natalia Felix on 11-17-2024 Neutrophils/100 WBC (Bld) 40.4 % Low 47-70 [facility] Nucleated red blood cell per centageOrdered By: Natalia Felix on 11-17-2024 Nucleated RBC/100 WBC (Bld) [Ratio] 0 % 0-5 [facility] Platelet countOrdered By: Norman Felix on 11-17-2024 Platelets (Bld) [#/Vol] 308 10*3/uL 150-450 [facility] Potassium measurement (mass/ volume)Ordered By: Natalia Felix on 11-17-2024 Potassium (Unsp spec) [Mass/Vol] 4.0 mmol/L 3.3-5.1 [facility] RBC Auto (Bld) [#/Vol]Ordere d By: Natalia Felix on 11-17-2024 RBC (Bld) [#/Vol] 4.38 10*6/uL 4.2-5.4 [facility] Serum creatinine measurement (mass/volume)Ordered By: Natalia Felix on 11-17-2024 Creatinine [Mass/Vol] 0.81 mg/dL 0.70-1.20 [facility] Serum globulin measurementOr dered By: Natalia Felix on 11-17-2024 Globulin (S) [Mass/Vol] 3.0 g/dL 2.2-4.2 [facility] Serum glucose measurement (m ass/volume)Ordered By: Natalia Felix on 11-17-2024 Glucose [Mass/Vol] 130 mg/dL High 70-99 [facility] Serum or plasma alanine turcios otransferase (ALT) measurementOrdered By: Natalia Felix on 11-17-2024 ALT [Catalytic activity/Vol] 44 U/L High <35 [facility] Serum or plasma albumin hannah urement (mass/volume)Ordered By: Natalia Felix on 11-17-2024 Albumin [Mass/Vol] 4.5 g/dL 3.5-5.0 [facility] Serum or plasma alkaline daya sphatase measurementOrdered By: Natalia Felix on 11-17-2024 ALP [Catalytic activity/Vol] 68 U/L 35-104 [facility] Serum or plasma calcium hannah urement (mass/volume)Ordered By: Natalia Felix on 11-17-2024 Calcium [Mass/Vol] 9.6 mg/dL 7.6-11.0 [facility] Serum or plasma urea nitroge n measurement (mass/volume)Ordered By: Natalia Felix on 11-17-2024 Urea nitrogen [Mass/Vol] 14 mg/dL 4-19 [facility] Sodium levelOrdered By: Ottoniel Felix on 11-17-2024 Sodium [Moles/Vol] 142 mmol/L 133-145 [facility] Total proteinOrdered By: Asha Felix on 11-17-2024 Protein [Mass/Vol] 7.5 g/dL 5.9-8.4 [facility] Troponin T.cardiac [Mass/vol ume] in Serum or Plasma by High sensitivity methodOrdered By: Natalia Felix on 11-17-2024 Troponin T.cardiac High sensitivity method [Mass/Vol] 54 ng/L High <14 [facility] Comment on above: Critical Result(s) C alled at 2221: by: OMKAR TO ETEAL Results read back by same. Troponin T.cardiac High sensitivity method [Mass/Vol] 69 ng/L High <14 [facility] Comment on above: Critical Result(s) C alled HORR at: 2017 by: MILLICENT Results read back by same. Troponin T.cardiac High sensitivity method [Mass/Vol] 76 ng/L High <14 [facility] Comment on above: Critical Result(s) C alled HORR at: 2017 by: MILLICENT Results read back by same. White blood cell (WBC) count Ordered By: Natalia Felix on 11-17-2024 WBC (Bld) [#/Vol] 7.4 10*3/uL 4.4-11.0 [facility] ANTINUCLEAR ANTIBODIES DIREC Ton 11-05-2024 BLAKE,DIRECT Positive Abnormal Negative [facility] Comment on above: Result Comment: Perf ormed at: - [facility] [address] [id number] Diamond Blender: Dominick De La Rosa PhD, Phone: [phone] Performed By: #### L 501.6710, L500.4050, L506.0400, L100.0100, L501.9520, L3100.5475 ####[facility] [address] [place], [place], [id number] Absolute lymphocyte countOrd ered By: Denise Cheng on 10-31-2024 Lymphocytes Auto (Unsp spec) [#/Vol] 2.48 10*3/uL 0.83-4.51 [facility] Absolute neutrophil countOrd ered By: Denise Cheng on 10-31-2024 Neutrophils (Bld) [#/Vol] 2.7 10*3/uL 2.0-7.7 [facility] Anion gap in Serum or Plasma Ordered By: Denise Cheng on 10-31-2024 Anion gap [Moles/Vol] 10 mmol/L 5- [facility] Automated lymphocyte count a s percentage of total leukocytesOrdered By: Denise Cheng on 10-31-2024 Lymphocytes/100 WBC Auto (Unsp spec) 40.6 % - [facility] BUN/creatinine ratioOrdered By: Denise Cheng on 10-31-2024 Urea nitrogen/Creatinine [Mass ratio] 21.1 mg/mg High 10- [facility] Basophil percentageOrdered B y: Denise Cheng on 10-31-2024 Basophils/100 WBC (Bld) 0.8 % 0-1 [facility] Bilirubin, totalOrdered By: Denise Cheng on 10-31-2024 Bilirubin [Mass/Vol] 0.57 mg/dL 0.00-1.30 [facility] CBC W/Diff, Automatedon 10-11 Absolute Lymph 2.48 X10 3/uL Normal 0.83-4.51 [facility] Comment on above: Performed By: #### L 501.6710, L500.4050, L506.0400, L100.0100, L501.9520, L3100.5475 ####[facility] [address] [place], [address] Absolute Neut 2.7 X10 3/uL Normal 2.0-7.7 [facility] Comment on above: Performed By: #### L 501.6710, L500.4050, L506.0400, L100.0100, L501.9520, L3100.5475 ####[facility] [address] [place], [address] Basophils/100 WBC (Bld) 0.8 % Normal 0-1 [facility] Comment on above: Performed By: #### L 501.6710, L500.4050, L506.0400, L100.0100, L501.9520, L3100.5475 ####[facility] [address] [place], [address] Eosinophils/100 WBC (Bld) 3.3 % Normal 0-5 [facility] Comment on above: Performed By: #### L 501.6710, L500.4050, L506.0400, L100.0100, L501.9520, L3100.5475 ####[facility] [address] [place], [address] Erythrocyte distribution width (RBC) [Ratio] 13.2 % Normal 11.6-14.6 [facility] Comment on above: Performed By: #### L 501.6710, L500.4050, L506.0400, L100.0100, L501.9520, L3100.5475 ####[facility] [address] [place], [address] Hematocrit (Bld) [Volume fraction] 43.0 % Normal 37-47 [facility] Comment on above: Performed By: #### L 501.6710, L500.4050, L506.0400, L100.0100, L501.9520, L3100.5475 ####[facility] [address] [place], [address] Hemoglobin (Bld) [Mass/Vol] 13.9 g/dL Normal 12.0-15.0 [facility] Comment on above: Performed By: #### L 501.6710, L500.4050, L506.0400, L100.0100, L501.9520, L3100.5475 ####[facility] [address] [place], [address] IG% 0.200 Normal 0.0-0.9 [facility] Comment on above: Result Comment: IG% - Immature Granulocytes (promyelocytes, myelocytes and metamyelocytes) > 1% indicates that a LEFT SHIFT is Present. Performed By: #### L 501.6710, L500.4050, L506.0400, L100.0100, L501.9520, L3100.5475 ####[facility] [address] [place], [address] Lymphocytes/100 WBC (Bld) 40.6 % Normal 19-41 [facility] Comment on above: Performed By: #### L 501.6710, L500.4050, L506.0400, L100.0100, L501.9520, L3100.5475 ####[facility] [address] [place], [address] MCH (RBC) [Entitic mass] 31.4 pg Normal 27.0-32.0 [facility] Comment on above: Performed By: #### L 501.6710, L500.4050, L506.0400, L100.0100, L501.9520, L3100.5475 ####[facility] [address] [place], [address] MCHC (RBC) [Mass/Vol] 32.3 g/dL Normal 32-36 [facility] Comment on above: Performed By: #### L 501.6710, L500.4050, L506.0400, L100.0100, L501.9520, L3100.5475 ####[facility] [address] [place], [address] MCV (RBC) [Entitic vol] 97.3 fL Normal 81-99 [facility] Comment on above: Performed By: #### L 501.6710, L500.4050, L506.0400, L100.0100, L501.9520, L3100.5475 ####[facility] [address] [place], [address] Monocytes/100 WBC (Bld) 11.5 % High 0-10 [facility] Comment on above: Performed By: #### L 501.6710, L500.4050, L506.0400, L100.0100, L501.9520, L3100.5475 ####[facility] [address] [place], [address] Neutrophils/100 WBC (Bld) 43.6 % Low 47-70 [facility] Comment on above: Performed By: #### L 501.6710, L500.4050, L506.0400, L100.0100, L501.9520, L3100.5475 ####[facility] [address] [place], [address] Nucleated RBC (Bld) [#/Vol] 0 10*3/uL Normal 0-5 [facility] Comment on above: Performed By: #### L 501.6710, L500.4050, L506.0400, L100.0100, L501.9520, L3100.5475 ####[facility] [address] [place], [address] Platelet mean volume (Bld) [Entitic vol] 9.2 fL Normal 6.2-12.0 [facility] Comment on above: Performed By: #### L 501.6710, L500.4050, L506.0400, L100.0100, L501.9520, L3100.5475 ####[facility] [address] [place], [address] Platelets (Bld) [#/Vol] 259 10*3/uL Normal 150-450 [facility] Comment on above: Performed By: #### L 501.6710, L500.4050, L506.0400, L100.0100, L501.9520, L3100.5475 ####[facility] [address] [place], [address] RBC (Bld) [#/Vol] 4.42 10*6/uL Normal 4.2-5.4 [facility] Comment on above: Performed By: #### L 501.6710, L500.4050, L506.0400, L100.0100, L501.9520, L3100.5475 ####[facility] [address] [place], [address] RDW SD 47.4 fl High 35.1-43.9 [facility] Comment on above: Performed By: #### L 501.6710, L500.4050, L506.0400, L100.0100, L501.9520, L3100.5475 ####[facility] [address] [place], [address] WBC (Bld) [#/Vol] 6.1 10*3/uL Normal 4.4-11.0 [facility] Comment on above: Performed By: #### L 501.6710, L500.4050, L506.0400, L100.0100, L501.9520, L3100.5475 ####[facility] [address] [place], [address] CRPon 10-31-2024 C-REACTIVE PROT < 3.00 Normal 0.0-3.0 [facility] Comment on above: Performed By: #### L 501.6710, L500.4050, L506.0400, L100.0100, L501.9520, L3100.5475 ####[facility] [address] [place], [address] Carbon dioxide, total [Moles /volume] in Central venous bloodOrdered By: Denise Cheng on 10-31-2024 CO2 [Moles/Vol] 25.0 mmol/L 21.0-32.0 [facility] Chloride assayOrdered By: Nadir Cheng on 10-31-2024 Chloride [Moles/Vol] 107 mmol/L 98-108 [facility] Comprehensive Metabolic Prof ilon 10-31-2024 Albumin [Mass/Vol] 4.2 g/dL Normal 3.5-5.0 [facility] Comment on above: Performed By: #### L 501.6710, L500.4050, L506.0400, L100.0100, L501.9520, L3100.5475 ####[facility] [address] [place], [address] Albumin/Globulin [Mass ratio] 1.4 {ratio} Normal 0.9-2.4 [facility] Comment on above: Performed By: #### L 501.6710, L500.4050, L506.0400, L100.0100, L501.9520, L3100.5475 ####[facility] [address] [place], [address] ALK PHOS 65 U/L Normal 35-104 [facility] Comment on above: Performed By: #### L 501.6710, L500.4050, L506.0400, L100.0100, L501.9520, L3100.5475 ####[facility] [address] [place], [address] ALT [Catalytic activity/Vol] 44 U/L High <=34 [facility] Comment on above: Performed By: #### L 501.6710, L500.4050, L506.0400, L100.0100, L501.9520, L3100.5475 ####[facility] [address] [place], [address] AST [Catalytic activity/Vol] 34 U/L High <=31 [facility] Comment on above: Performed By: #### L 501.6710, L500.4050, L506.0400, L100.0100, L501.9520, L3100.5475 ####[facility] [address] [place], [address] Bilirubin [Mass/Vol] 0.57 mg/dL Normal 0.00-1.30 [facility] Comment on above: Performed By: #### L 501.6710, L500.4050, L506.0400, L100.0100, L501.9520, L3100.5475 ####[facility] [address] [place], [address] BUN/CRE 21.1 RATIO High 10-20 [facility] Comment on above: Performed By: #### L 501.6710, L500.4050, L506.0400, L100.0100, L501.9520, L3100.5475 ####[facility] [address] [place], [address] Calcium [Mass/Vol] 9.5 mg/dL Normal 7.6-11.0 [facility] Comment on above: Performed By: #### L 501.6710, L500.4050, L506.0400, L100.0100, L501.9520, L3100.5475 ####[facility] [address] [place], [address] Chloride [Moles/Vol] 107 mmol/L Normal 98-108 [facility] Comment on above: Performed By: #### L 501.6710, L500.4050, L506.0400, L100.0100, L501.9520, L3100.5475 ####[facility] [address] [place], [address] CO2 [Moles/Vol] 25.0 mmol/L Normal 21.0-32.0 [facility] Comment on above: Performed By: #### L 501.6710, L500.4050, L506.0400, L100.0100, L501.9520, L3100.5475 ####[facility] [address] [place], [address] Creatinine [Mass/Vol] 0.87 mg/dL Normal 0.70-1.20 [facility] Comment on above: Performed By: #### L 501.6710, L500.4050, L506.0400, L100.0100, L501.9520, L3100.5475 ####[facility] [address] [place], [address] GAP 10 Normal 5-15 [facility] Comment on above: Performed By: #### L 501.6710, L500.4050, L506.0400, L100.0100, L501.9520, L3100.5475 ####[facility] [address] [place], [address] GFR/1.73 sq M.predicted among non-blacks MDRD (S/P/Bld) [Vol rate/Area] 77 mL/min/{1.73_m2} Normal >60 [facility] Comment on above: Result Comment: mL/m in/1.73m2 CKD-EPI Creatinine Equation (2020) Performed By: #### L 501.6710, L500.4050, L506.0400, L100.0100, L501.9520, L3100.5475 ####[facility] [address] [place], [address] Globulin (S) [Mass/Vol] 2.9 g/dL Normal 2.2-4.2 [facility] Comment on above: Performed By: #### L 501.6710, L500.4050, L506.0400, L100.0100, L501.9520, L3100.5475 ####[facility] [address] [place], [address] Glucose [Mass/Vol] 77 mg/dL Normal 70-99 [facility] Comment on above: Performed By: #### L 501.6710, L500.4050, L506.0400, L100.0100, L501.9520, L3100.5475 ####[facility] [address] [place], [address] Potassium [Moles/Vol] 4.1 mmol/L Normal 3.3-5.1 [facility] Comment on above: Performed By: #### L 501.6710, L500.4050, L506.0400, L100.0100, L501.9520, L3100.5475 ####[facility] [address] [place], [address] Sodium [Moles/Vol] 142 mmol/L Normal 133-145 [facility] Comment on above: Performed By: #### L 501.6710, L500.4050, L506.0400, L100.0100, L501.9520, L3100.5475 ####[facility] [address] [place], [address] T PROT 7.1 g/dL Normal 5.9-8.4 [facility] Comment on above: Performed By: #### L 501.6710, L500.4050, L506.0400, L100.0100, L501.9520, L3100.5475 ####[facility] [address] [place], [address] Urea nitrogen [Mass/Vol] 18 mg/dL Normal 4-19 [facility] Comment on above: Performed By: #### L 501.6710, L500.4050, L506.0400, L100.0100, L501.9520, L3100.5475 ####[facility] [address] [place], [address] Eosinophil percentageOrdered By: Denise Cheng on 10-31-2024 Eosinophils/100 WBC (Bld) 3.3 % 0-5 [facility] Erythrocyte distribution wid th ratioOrdered By: Denise Cheng on 10-31-2024 Erythrocyte distribution width (RBC) [Ratio] 13.2 % 11.6-14.6 [facility] Erythrocyte distribution wid th standard deviationOrdered By: Denise Cheng on 10-31-2024 Erythrocyte distribution width (RBC) [Ratio] 47.4 fl High 35.1-43.9 [facility] Glomerular filtration rate ( GFR) estimation/1.73 sq m using serum, plasma, or whole bOrdered By: Denise Cheng on 10-31-2024 GFR/1.73 sq M.predicted among non-blacks MDRD (S/P/Bld) [Vol rate/Area] 77 mL/min/{1.73_m2} >60 [facility] Comment on above: mL/min/1.73m2 CKD-EP I Creatinine Equation (2020) Hematocrit Auto (Bld) [Volum e fraction]Ordered By: Denise Cheng on 10-31-2024 Hematocrit (Bld) [Volume fraction] 43.0 % 37-47 [facility] Hemoglobin measurementOrdere d By: Denise Cheng on 10-31-2024 Hemoglobin (Bld) [Mass/Vol] 13.9 g/dL 12.0-15.0 [facility] Immature granulocytes/100 WB C Auto (Bld)Ordered By: Denise Cheng on 10-31-2024 Immature granulocytes/100 WBC (Bld) 0.200 % 0.0-0.9 [facility] Comment on above: IG% - Immature Granu locytes (promyelocytes, myelocytes and metamyelocytes) > 1% indicates that a LEFT SHIFT is Present. Laboratory - Chemistry and C hemistry - challengeOrdered By: Denise Cheng on 10-31-2024 AST [Catalytic activity/Vol] 34 U/L High <32 [facility] MCV (mean corpuscular volume ) determinationOrdered By: Denise Cheng on 10-31-2024 MCV (RBC) [Entitic vol] 97.3 fL 81-99 [facility] Mean corpuscular hemoglobin (MCH) determinationOrdered By: Denise Cheng on 10-31-2024 MCH (RBC) [Entitic mass] 31.4 pg 27.0-32.0 [facility] Mean corpuscular hemoglobin concentration (MCHC) determinationOrdered By: Denise Cheng on 10-31-2024 MCHC (RBC) [Mass/Vol] 32.3 g/dL 32-36 [facility] Mean platelet volume determi nationOrdered By: Denise Cheng on 10-31-2024 Platelet mean volume (Bld) [Entitic vol] 9.2 fL 6.2-12.0 [facility] Monocyte percentageOrdered B y: Denise Cheng on 10-31-2024 Monocytes/100 WBC (Bld) 11.5 % High 0-10 [facility] Neutrophil percentageOrdered By: Denise Cheng on 10-31-2024 Neutrophils/100 WBC (Bld) 43.6 % Low 47-70 [facility] Nucleated red blood cell per centageOrdered By: Denise Cheng on 10-31-2024 Nucleated RBC/100 WBC (Bld) [Ratio] 0 % 0-5 [facility] Platelet countOrdered By: Nadir Cheng on 10-31-2024 Platelets (Bld) [#/Vol] 259 10*3/uL 150-450 [facility] Potassium measurement (mass/ volume)Ordered By: Denise Cheng on 10-31-2024 Potassium (Unsp spec) [Mass/Vol] 4.1 mmol/L 3.3-5.1 [facility] RBC Auto (Bld) [#/Vol]Ordere d By: Denise Cheng on 10-31-2024 RBC (Bld) [#/Vol] 4.42 10*6/uL 4.2-5.4 [facility] Serum creatinine measurement (mass/volume)Ordered By: Denise Cheng on 10-31-2024 Creatinine [Mass/Vol] 0.87 mg/dL 0.70-1.20 [facility] Serum globulin measurementOr dered By: Denise Cheng on 10-31-2024 Globulin (S) [Mass/Vol] 2.9 g/dL 2.2-4.2 [facility] Serum glucose measurement (m ass/volume)Ordered By: Denise Cheng on 10-31-2024 Glucose [Mass/Vol] 77 mg/dL 70-99 [facility] Serum or plasma C reactive p rotein measurement (mass/volume)Ordered By: Denise Cheng on 10-31-2024 CRP [Mass/Vol] mg/L 0.0-3.0 [facility] Serum or plasma alanine turcios otransferase (ALT) measurementOrdered By: Denise Cheng on 10-31-2024 ALT [Catalytic activity/Vol] 44 U/L High <35 [facility] Serum or plasma albumin hannah urement (mass/volume)Ordered By: Denise Cheng on 10-31-2024 Albumin [Mass/Vol] 4.2 g/dL 3.5-5.0 [facility] Serum or plasma albumin/glob ulin mass ratioOrdered By: Denise Cheng on 10-31-2024 Albumin/Globulin [Mass ratio] 1.4 {ratio} 0.9-2.4 [facility] Serum or plasma alkaline daya sphatase measurementOrdered By: Denise Cheng on 10-31-2024 ALP [Catalytic activity/Vol] 65 U/L 35-104 [facility] Serum or plasma calcium hannah urement (mass/volume)Ordered By: Denise Cheng on 10-31-2024 Calcium [Mass/Vol] 9.5 mg/dL 7.6-11.0 [facility] Serum or plasma urea nitroge n measurement (mass/volume)Ordered By: Denise Cheng on 10-31-2024 Urea nitrogen [Mass/Vol] 18 mg/dL 4-19 [facility] Sodium levelOrdered By: Denise Cheng on 10-31-2024 Sodium [Moles/Vol] 142 mmol/L 133-145 [facility] T4 Free Directon 10-31-2024 T4 FREE DIRECT 1.10 ng/dL Normal 0.76-1.46 [facility] Comment on above: Performed By: #### L 501.6703, L500.4050, L506.0400, L100.0100, L501.9520, L3100.5463 ####[facility] [address] [place], [place], [address] T4 freeOrdered By: Denise plasencia on 10-31-2024 Free T4 [Mass/Vol] 1.10 ng/dL 0.76-1.46 [facility] TSH DL <= 0.005 mIU/L QnOrde red By: Denise Cheng on 10-31-2024 TSH Qn 2.600 uIU/mL 0.300-4.20 0 [facility] Thyroid Stim Hormone (TSH)on 10-31-2024 TSH 2.600 uIU/mL Normal 0.300-4.20 0 [facility] Comment on above: Performed By: #### L 501.6710, L500.4050, L506.0400, L100.0100, L501.9520, L3100.5475 ####[facility] [address] [place], [place], [address] Total proteinOrdered By: Martha Cheng on 10-31-2024 Protein [Mass/Vol] 7.1 g/dL 5.9-8.4 [facility] White blood cell (WBC) count Ordered By: Denise Cheng on 10-31-2024 WBC (Bld) [#/Vol] 6.1 10*3/uL 4.4-11.0 [facility] Electrocardiogram reportOrde red By: Giancarlo Hammer on 10-02-2024 EKG study [facility] Cardiovascular Services [address] [place] [address] 12 Lead EKG 10/01/24 0723 MR#: [id number] Acct: [id number] Name: YUMIKO SINGH Rep #:[id number] : 1965 58 From: Giancarlo Hammer MD Attending Dr: Dr. Saul Bazan, Status: REG CLI Ordering Dr: Saul Bazan DO Date: 10/01/24 Location: [facility] Sex: F C Admitted: Test Reason : PREOP Blood Pressure : */* mmHG Vent. Rate : 87 BPM Atrial Rate : 87 BPM P-R Int : 136 ms QRS Dur : 68 ms QT Int : 370 ms P-R-T Axes : 62 17 56 degrees QTcB Int : 445 ms Normal sinus rhythm Normal ECG Confirmed by GIANCARLO HAMMER MD ([id number]), editor sound CANDE WARREN ([id number]) on 10/02/2024 7:55:37 AM Referred By: Saul Bazan Confirmed By: GIANCARLO HAMMER MD 10/02/24754 Date _ Giancarlo Hammer MD CC: Dr. Denise Cheng MD; Dr. Saul Bazan DO ~ Signed [facility] Other Phone: 12 Lead EKGon 10-01-2024 12 Lead EKG [facility] Cardiovascular Services [address] [place] [address] 12 Lead EKG 10/01/24 0723 MR#: [id number] Acct: [id number] Name: YUMIKO SINGH Rep #: [id number] : 1965 58 From: Giancarlo Hammer MD Attending Dr: Dr. Saul Bazan, Status: REG CLI Ordering Dr: Saul Bazan DO Date: 10/01/24 Location: [facility] Sex: F C Admitted: Test Reason : PREOP Blood Pressure : */* mmHG Vent. Rate : 87 BPM Atrial Rate : 87 BPM P-R Int : 136 ms QRS Dur : 68 ms QT Int : 370 ms P-R-T Axes : 62 17 56 degrees QTcB Int : 445 ms Normal sinus rhythm Normal ECG Confirmed by GIANCARLO HAMMER MD ([id number]), editor sound CANDE WARREN ([id number]) on 10/02/2024 7:55:37 AM Referred By: Saul Bazan Confirmed By: GIANCARLO HAMMER MD 10/02/24754 Date Giancarlo Hammer MD CC: Dr. Denise Cheng MD; Dr. Saul Bazan DO Signed Normal [facility] Breast imaging reportOrdered By: Cielo Ignacio on 09-04-2024 Study report [facility] Imaging [place] [address] SCRN MAMM (CAD)W/DINH BILAT MR#: [id number] Acct: [id number] Name: YUMIKO SINGH Rep #: [id number] : 1965 F 58 From: Stephane Ignacio DO PCP: Dr. Denise Cheng MD Status: REG CLI Study:SCRN MAMM (CAD)W/DINH BILAT Date of Exa m: 09/03/24 Exam# [id number] Ordering Dr: Nadir Cheng MD EXAM: PROCEDURE: [...] you for referring your patient to the [facility], if you have any questions, please call us at the performing site listed at the top of the report. [facility] , [facility] , [facility] and [employer] . Reading Location: [facility] CC: Dr. Denise Cheng MD ~ Crm Technical Lead: Signed [facility] SCRN MAMM (CAD)W/DINH BILATo n 09-03-2024 SCRN MAMM (CAD)W/DINH BILAT [facility] Imaging Services [address] [place], [place] [address] SCRN MAMM (CAD)W/DINH BILAT MR#: [id number] Acct: [id number] Name: YUMIKO SINGH Rep #: [id number] : 1965 F 58 From: Cielo Hardy PCP: Dr. Denise Cheng MD Status: REG CLI Study: SCRN MAMM (CAD)W/DINH BILAT Date of Exam: 08/11 11/03 Exam# [id number] Ordering Dr: Denise Cheng MD EXAM: PROCEDURE: [...] you for referring your patient to the [facility], if you have any questions, please call us at the performing site listed at the top of the report. [facility] , [facility] , [facility] and [facility] . Reading Location: [id number] CC: Dr. Denise Cheng MD Crm Technical Lead: Signed Normal [facility] Urgent Care Visit Reporton 0 08-10-2024 Urgent Care Visit Report [facility] [address] , [address] [place], [place] [address] OFFICE VISIT Date of Service: 08/10/24 MR#: [id number] Acct: [id number] Name: YUMIKO SINGH Rep #: [id number] : 1965 Provider: ILENE Barrios Age/Sex: 58/F Location: [facility] Status: Signed Intake Vital Signs 07/28/24 12:43 [...] COUGH/ST/FEVER/CONGESTION Chief Complaint: cough, ST, fever, congest [employer] Required: No Is patient in pain?: No [...] 500 mg capsule 1,000 mg PO DAILY 10/06/212 5 History vitamin B complex 1 tab PO DAILY 04/27/22 03/01/25 H istory rizatriptan 10 mg tablet 10 mg PO .COMPLEX PRN 01/27/2307/06 History Is last menstrual period known: No Post menopausal: Yes Patient : No Have you fallen in the past year?: No Nurse's Note: cough, ST, fever, congest x 1 week without resolve. [facility] Medical History (Updated 08/10/24 @ 09:47 by [...] General: pa (more content not included)... Normal [facility] Urine Cultureon 07-31-2024 URC Mixed Gram Positive Organisms [place] Count 1000-10,000 MIXC Mixed contaminants. Submit a new specimen if indicated. Normal [facility] Comment on above: Performed By: #### M 100.2200 ####[facility] [address] [place], [address] Urine cultureOrdered By: Dawson Cordova on 07-29-2024 Bacteria identified Cx Nom (U) Positive Abnormal [facility] Laboratory - Chemistry and C hemistry - challengeOrdered By: Adilson Cordova on 07-28-2024 Bilirubin Ql (U) Negative [facility] Glucose Ql (U) Negative [facility] Ketones Ql (U) Negative [facility] pH (U) 5.0 [pH] [facility] Specific gravity (U) [Rel density] 1.005 [facility] Urobilinogen (U) [Mass/Vol] Negative [facility] Laboratory - Hematology and Cell countsOrdered By: Adilson Cordova on 07-28-2024 Hemoglobin Ql (U) Moderate [facility] Laboratory - Specimen inform ationOrdered By: Adilson Cordova on 07-28-2024 Clarity (U) Cloudy [facility] Color (U) JHONY [facility] Laboratory - UrinalysisOrder ed By: Adilson Cordova on 07-28-2024 Nitrite Ql (U) Negative [facility] Protein Ql (U) Trace [facility] No Panel InformationOrdered By: Adilson Cordova on 07-28-2024 Urine Leukocytes Positive [facility] Urine Non-Hemolyzed Blood Non-Hemolyzed [facility] Urgent Care Visit Reporton 0 07-28-2024 Urgent Care Visit Report [facility] [address], [address] [place], [place] [address] OFFICE VISIT Date of Service: 07/28/24 MR#: [id number] Acct: [id number] Name: YUMIKO SINGH Rep #: [id number] : 1965 Provider: ILENE fenton Age/Sex: 58/F Location: [facility] Status: Signed Intake Vital Signs 04/03/23 07:23 [...] Office Urine Color JHONY Last Edit by Sheir Patino on 07/28/24 13:20 Office Urine Clarity Cloudy Last Edit by Sheri Patino on 07/28/24 13:20 Office Urine Glucose Negative Last Edit by Sheri Patino on 07/28/24 13:20 Office Urine Ketones Negative Last Edit by Sheri Patino on 07/28/24 13:20 Off Ur Spec [place] 1.005 Last Edit by Sheri Patino on 07/28/24 13:20 Office Urine pH 5.0 Last Edit by Sheri Patino on 07/28/24 1 (more content not included)... Normal [facility] Urgent Care Visit Reporton 06-15-2023 Urgent Care Visit Report [facility] [address], [address] [place] [address] OFFICE VISIT Date of Service: 04/15/24 MR#: [id number] Acct: [id number] Name: YUMIKO SINGH Rep #: [id number] : 1965 Provider: SHAHRAM Escudero Age/Sex: 58/F Location: [facility] Status: Signed Intake Vital Signs 04/03/23 07:23 04/15/24 07:11 Height 5 ft 9 in BP 130/76 H Blood Pressure Location Lt brachial Position Sitting Respiration 16 Pulse 102 H Pulse Source NIBP Temp 98.2 F Temp Source Oral Pulse Oximetry (%) 94 Oxygen Delivery Method room air Intake Visit Reasons: COUGH/CONGESTION Chief Complaint: cough,congest, grn mucus, face pain [employer] Required: No Is patient in pain?: No [...] pain x 2 weeks. declines viral testing. [facility] Medical History (Updated 06/13/23 @ 13:34 by [...] Rate: tachycardi (more content not included)... Normal [facility] PROGESTERONE 4317on 16-20 24 PROGESTERONE <0.1 Normal . [facility] Comment on above: Order Comment: N Result Comment: Foll icular phase 0.1 - 0.9 Luteal phase 1.8 - 23.9 Ovulation phase 0.1 - 12.0 First trimester 11.0 - 44.3 Second trimester 25.4 - 83.3 Third trimester 58.7 - 214.0 Postmenopausal 0.0 - 0.1 Performed at: [address] [id number] Diamond Blender: Dominick De La Rosa PhD, Phone: [phone] Performed By: #### L 801.2600, L3300.1750 ####[facility] [address] [place], [address] CBC W/Diff, Automatedon 01-10 Absolute Lymph 3.15 X10 3/uL Normal 0.83-4.51 [facility] Comment on above: Order Comment: Order Date: 01/23/24 Order Info: 0184-1 - CBCD Performed By: #### L 500.4100, L501.9985, L500.4050, L506.0400, L501.9520, L100.0100 #### [facility] [address] [place], [place], [address] (890) Absolute Neut 5.8 X10 3/uL Normal 2.0-7.7 [facility] Comment on above: Order Comment: Order Date: 01/23/24 Order Info: 0184-1 - CBCD Performed By: #### L 500.4100, L501.9985, L500.4050, L506.0400, L501.9520, L100.0100 #### [facility] [address] [place], [address] Basophils/100 WBC (Bld) 0.3 % Normal 0-1 [facility] Comment on above: Order Comment: Order Date: 01/23/24 Order Info: 0184-1 - CBCD Performed By: #### L 500.4100, L501.9985, L500.4050, L506.0400, L501.9520, L100.0100 #### [facility] [address] [place], [place], [address] (343) Eosinophils/100 WBC (Bld) 0.3 % Normal 0-5 [facility] Comment on above: Order Comment: Order Date: 01/23/24 Order Info: 0184-1 - CBCD Performed By: #### L 500.4100, L501.9985, L500.4050, L506.0400, L501.9520, L100.0100 #### [facility] [address] [place], [address] Erythrocyte distribution width (RBC) [Ratio] 14.3 % Normal 11.6-14.6 [facility] Comment on above: Order Comment: Order Date: 01/23/24 Order Info: 0184-1 - CBCD Performed By: #### L 500.4100, L501.9985, L500.4050, L506.0400, L501.9520, L100.0100 #### [facility] [address] [place], [address] Hematocrit (Bld) [Volume fraction] 40.1 % Normal 37-47 [facility] Comment on above: Order Comment: Order Date: 01/23/24 Order Info: 0184-1 - CBCD Performed By: #### L 500.4100, L501.9985, L500.4050, L506.0400, L501.9520, L100.0100 #### [facility] [address] [place], [address] Hemoglobin (Bld) [Mass/Vol] 13.0 g/dL Normal 12.0-15.0 [facility] Comment on above: Order Comment: Order Date: 01/23/24 Order Info: 0184-1 - CBCD Performed By: #### L 500.4100, L501.9985, L500.4050, L506.0400, L501.9520, L100.0100 #### [facility] [address] [place], [address] IG% 0.200 Normal 0.0-0.9 [facility] Comment on above: Order Comment: Order Date: 01/23/24 Order Info: 0184-1 - CBCD Result Comment: IG% - Immature Granulocytes (promyelocytes, myelocytes and metamyelocytes) > 1% indicates that a LEFT SHIFT is Present. Performed By: #### L 500.4100, L501.9985, L500.4050, L506.0400, L501.9520, L100.0100 #### [facility] [address] [place], [address] Lymphocytes/100 WBC (Bld) 31.7 % Normal 19-41 [facility] Comment on above: Order Comment: Order Date: 01/23/24 Order Info: 0184- - CBCD Performed By: #### L 500.4100, L501.9985, L500.4050, L506.0400, L501.9520, L100.0100 #### [facility] [address] [place], [address] MCH (RBC) [Entitic mass] 32.2 pg High 27.0-32.0 [facility] Comment on above: Order Comment: Order Date: 01/23/24 Order Info: 0184- - CBCD Performed By: #### L 500.4100, L501.9985, L500.4050, L506.0400, L501.9520, L100.0100 #### [facility] [address] [place], [address] MCHC (RBC) [Mass/Vol] 32.4 g/dL Normal 32-36 [facility] Comment on above: Order Comment: Order Date: 01/23/24 Order Info: 0184-1 - CBCD Performed By: #### L 500.4100, L501.9985, L500.4050, L506.0400, L501.9520, L100.0100 #### [facility] [address] [place], [address] MCV (RBC) [Entitic vol] 99.3 fL High 81-99 [facility] Comment on above: Order Comment: Order Date: 01/23/24 Order Info: 0184-1 - CBCD Performed By: #### L 500.4100, L501.9985, L500.4050, L506.0400, L501.9520, L100.0100 #### [facility] [address] [place], [address] Monocytes/100 WBC (Bld) 9.5 % Normal 0-10 [facility] Comment on above: Order Comment: Order Date: 01/23/24 Order Info: 0184- - CBCD Performed By: #### L 500.4100, L501.9985, L500.4050, L506.0400, L501.9520, L100.0100 #### [facility] [address] [place], [address] Neutrophils/100 WBC (Bld) 58.0 % Normal 47-70 [facility] Comment on above: Order Comment: Order Date: 01/23/24 Order Info: 0184- - CBCD Performed By: #### L 500.4100, L501.9985, L500.4050, L506.0400, L501.9520, L100.0100 #### [facility] [address] [place], [address] Nucleated RBC (Bld) [#/Vol] 0 10*3/uL Normal 0-5 [facility] Comment on above: Order Comment: Order Date: 01/23/24 Order Info: 0184-1 - CBCD Performed By: #### L 500.4100, L501.9985, L500.4050, L506.0400, L501.9520, L100.0100 #### [facility] [address] [place], [address] Platelet mean volume (Bld) [Entitic vol] 9.1 fL Normal 6.2-12.0 [facility] Comment on above: Order Comment: Order Date: 01/23/24 Order Info: 0184-1 - CBCD Performed By: #### L 500.4100, L501.9985, L500.4050, L506.0400, L501.9520, L100.0100 #### [facility] [address] [place], [address] Platelets (Bld) [#/Vol] 343 10*3/uL Normal 150-450 [facility] Comment on above: Order Comment: Order Date: 01/23/24 Order Info: 0184-1 - CBCD Performed By: #### L 500.4100, L501.9985, L500.4050, L506.0400, L501.9520, L100.0100 #### [facility] [address] [place], [address] RBC (Bld) [#/Vol] 4.04 10*6/uL Low 4.2-5.4 [facility] Comment on above: Order Comment: Order Date: 01/23/24 Order Info: [id number] - CBCD Performed By: #### L 500.4100, L501.9985, L500.4050, L506.0400, L501.9520, L100.0100 #### [facility] [address] [place], [address] RDW SD 51.9 fl High 35.1-43.9 [facility] Comment on above: Order Comment: Order Date: 01/23/24 Order Info: 0184-1 - CBCD Performed By: #### L 500.4100, L501.9985, L500.4050, L506.0400, L501.9520, L100.0100 #### [facility] [address] [place], [address] WBC (Bld) [#/Vol] 9.9 10*3/uL Normal 4.4-11.0 [facility] Comment on above: Order Comment: Order Date: 01/23/24 Order Info: 0184-1 - CBCD Performed By: #### L 500.4100, L501.9985, L500.4050, L506.0400, L501.9520, L100.0100 #### [facility] [address] [place], [address] Comprehensive Metabolic Prof ilon 01-25-2024 Albumin [Mass/Vol] 3.6 g/dL Normal 3.2-5.0 [facility] Comment on above: Order Comment: Order Date: 01/23/24 Order Info: 07-1 - CMP Order Info: [id number] - LIPID Order Info: 6-3 - TSH Order Info: 3024-7 - T4F N Performed By: #### L 500.4100, L501.9985, L500.4050, L506.0400, L501.9520, L100.0100 #### [facility] [address] [place], [address] Albumin/Globulin [Mass ratio] 1.0 {ratio} Normal 0.9-2.4 [facility] Comment on above: Order Comment: Order Date: 01/23/24 Order Info: 0786- - CMP Order Info: [id number] - LIPID Order Info: [id number] - TSH Order Info: 3024-7 - T4F N Performed By: #### L 500.4100, L501.9985, L500.4050, L506.0400, L501.9520, L100.0100 #### [facility] [address] [place], [address] ALK P 62 U/L Normal 45-117 [facility] Comment on above: Order Comment: Order Date: 01/23/24 Order Info: [id number] - CMP Order Info: [id number] - LIPID Order Info: [id number] - TSH Order Info: 3024-7 - T4F N Performed By: #### L 500.4100, L501.9985, L500.4050, L506.0400, L501.9520, L100.0100 #### [facility] [address] [place], [address] ALT [Catalytic activity/Vol] 30 U/L Normal 13-56 [facility] Comment on above: Order Comment: Order Date: 01/23/24 Order Info: 0786-1 - CMP Order Info: [id number] - LIPID Order Info: [id number] - TSH Order Info: 3024-7 - T4F N Performed By: #### L 500.4100, L501.9985, L500.4050, L506.0400, L501.9520, L100.0100 #### [facility] [address] [place], [address] AST [Catalytic activity/Vol] 15 U/L Normal 15-37 [facility] Comment on above: Order Comment: Order Date: 01/23/24 Order Info: 86-1 - CMP Order Info: [id number] - LIPID Order Info: 6-3 - TSH Order Info: 3024-7 - T4F N Performed By: #### L 500.4100, L501.9985, L500.4050, L506.0400, L501.9520, L100.0100 #### [facility] [address] [place], [address] Bilirubin [Mass/Vol] 0.80 mg/dL Normal 0.20-1.00 [facility] Comment on above: Order Comment: Order Date: 01/23/24 Order Info: 0786-1 - CMP Order Info: [id number] - LIPID Order Info: [id number] - TSH Order Info: 3024-7 - T4F N Result Comment: For patients on eltrombopag therapy, use of Dimension [place] TBIL is not recommended. Performed By: #### L 500.4100, L501.9985, L500.4050, L506.0400, L501.9520, L100.0100 #### [facility] [address] [place], [address] BUN/CRE 28.9 RATIO High 10-20 [facility] Comment on above: Order Comment: Order Date: 01/23/24 Order Info: 0786-1 - CMP Order Info: [id number] - LIPID Order Info: [id number] - TSH Order Info: 3024-7 - T4F N Performed By: #### L 500.4100, L501.9985, L500.4050, L506.0400, L501.9520, L100.0100 #### [facility] [address] [place], [address] CA,Total 9.0 mg/dL Normal 8.5-10.1 [facility] Comment on above: Order Comment: Order Date: 01/23/24 Order Info: 785-1 - CMP Order Info: [id number] - LIPID Order Info: 3 - TSH Order Info: 3024-7 - T4F N Performed By: #### L 500.4100, L501.9985, L500.4050, L506.0400, L501.9520, L100.0100 #### [facility] [address] [place], [address] Chloride [Moles/Vol] 109 mmol/L High 98-107 [facility] Comment on above: Order Comment: Order Date: 01/23/24 Order Info: 0786-1 - CMP Order Info: [id number] - LIPID Order Info: 3016-3 - TSH Order Info: 3024-7 - T4F N Performed By: #### L 500.4100, L501.9985, L500.4050, L506.0400, L501.9520, L100.0100 #### [facility] [address] [place], [address] CO2 [Moles/Vol] 26.0 mmol/L Normal 21.0-32.0 [facility] Comment on above: Order Comment: Order Date: 01/23/24 Order Info: 0786-1 - CMP Order Info: [id number] - LIPID Order Info: [id number] - TSH Order Info: 3023-12 - T4F N Performed By: #### L 500.4100, L501.9985, L500.4050, L506.0400, L501.9520, L100.0100 #### [facility] [address] [place], [address] Creatinine [Mass/Vol] 0.90 mg/dL Normal 0.55-1.02 [facility] Comment on above: Order Comment: Order Date: 01/23/24 Order Info: 785-06 - CMP Order Info: - LIPID Order Info: [id number] - TSH Order Info: 3023-12 T4F N Result Comment: The validity of the calculated GFR GFRAA in patients over 70 years has not been determined. Clinical correlation is essential. Performed By: #### L 500.4100, L501.9985, L500.4050, L506.0400, L501.9520, L100.0100 #### [facility] [address] [place], [address] EST GFR - AA 83 mL/min Normal >60 [facility] Comment on above: Order Comment: Order Date: 01/23/24 Order Info: 785-06 - CMP Order Info: - LIPID Order Info: [id number] - TSH Order Info: 3023-12 - T4F N Result Comment: Afri can German GFR Calc Performed By: #### L 500.4100, L501.9985, L500.4050, L506.0400, L501.9520, L100.0100 #### [facility] [address] [place], [address] GAP 7 Normal 5-15 [facility] Comment on above: Order Comment: Order Date: 01/23/24 Order Info: 07 - CMP Order Info: [id number] - LIPID Order Info: [id number] - TSH Order Info: 3023-12 - T4F N Performed By: #### L 500.4100, L501.9985, L500.4050, L506.0400, L501.9520, L100.0100 #### [facility] [address] [place], [address] GFR/1.73 sq M.predicted among non-blacks MDRD (S/P/Bld) [Vol rate/Area] 68 mL/min/{1.73_m2} Normal >60 [facility] Comment on above: Order Comment: Order Date: 01/23/24 Order Info: 785- - CMP Order Info: - LIPID Order Info: 3 - TSH Order Info: 7 - T4F N Result Comment: Non- GFR Calc Performed By: #### L 500.4100, L501.9985, L500.4050, L506.0400, L501.9520, L100.0100 #### [facility] [address] [place], [address] Globulin (S) [Mass/Vol] 3.6 g/dL Normal 2.2-4.2 [facility] Comment on above: Order Comment: Order Date: 01/23/24 Order Info: 785-06 - CMP Order Info: - LIPID Order Info: 3 - TSH Order Info: 3024-7 - T4F N Performed By: #### L 500.4100, L501.9985, L500.4050, L506.0400, L501.9520, L100.0100 #### [facility] [address] [place], [address] Glucose [Mass/Vol] 93 mg/dL Normal 74-106 [facility] Comment on above: Order Comment: Order Date: 01/23/24 Order Info: 785-06 - CMP Order Info: [id number] - LIPID Order Info: 3 - TSH Order Info: 3024-7 - T4F N Performed By: #### L 500.4100, L501.9985, L500.4050, L506.0400, L501.9520, L100.0100 #### [facility] [address] [place], [address] Potassium [Moles/Vol] 3.6 mmol/L Normal 3.5-5.1 [facility] Comment on above: Order Comment: Order Date: 01/23/24 Order Info: 86-1 - CMP Order Info: [id number] - LIPID Order Info: [id number] - TSH Order Info: 3024-7 - T4F N Performed By: #### L 500.4100, L501.9985, L500.4050, L506.0400, L501.9520, L100.0100 #### [facility] [address] [place], [address] Sodium [Moles/Vol] 142 mmol/L Normal 136-145 [facility] Comment on above: Order Comment: Order Date: 01/23/24 Order Info: 785- - CMP Order Info: [id number] - LIPID Order Info: [id number] - TSH Order Info: 3024-7 - T4F N Performed By: #### L 500.4100, L501.9985, L500.4050, L506.0400, L501.9520, L100.0100 #### [facility] [address] [place], [address] T PROT 7.2 g/dL Normal 6.4-8.2 [facility] Comment on above: Order Comment: Order Date: 01/23/24 Order Info: 0786-1 - CMP Order Info: [id number] - LIPID Order Info: [id number] - TSH Order Info: 3024-7 - T4F N Performed By: #### L 500.4100, L501.9985, L500.4050, L506.0400, L501.9520, L100.0100 #### [facility] [address] [place], [address] Urea nitrogen [Mass/Vol] 26 mg/dL High 7-18 [facility] Comment on above: Order Comment: Order Date: 01/23/24 Order Info: 0786-1 - CMP Order Info: [id number] - LIPID Order Info: [id number] - TSH Order Info: 3024-7 - T4F N Performed By: #### L 500.4100, L501.9985, L500.4050, L506.0400, L501.9520, L100.0100 #### [facility] [address] [place], [place], [address] Estradiolon 01-25-2024 ESTRADIOL < 11.0 Normal [facility] Comment on above: Order Comment: Order Date: 01/23/24Order Info: 0786-1 - CMPOrder Info: [id number] - LIPIDOrder Info: [id number] - TSHOrder Info: 3024-7 - T4FN Result Comment: NORM AL REFERENCE [...] CONCENTRATION. Performed By: #### L 801.2600, L3300.1750 ####[facility] [address] [place], [place], [address] Hemoglobin A1con 01-25-2024 HbA1c (Bld) [Mass fraction] 5.2 % Normal 3.8-5.6 [facility] Comment on above: Order Comment: Order Date: 01/23/24 Order Info: [id number] - A1C Result Comment: Norm al < 5.7 % Prediabetic 5.7 - 6.4 % Diabetic >or= 6.5 % Please note range changes. Performed By: #### L 500.4100, L501.9985, L500.4050, L506.0400, L501.9520, L100.0100 #### [facility] [address] [place], [address] Lipid Profileon 01-25-2024 Cholesterol [Mass/Vol] 194 mg/dL Normal 200 [facility] Comment on above: Order Comment: Order Date: 01/23/24 Order Info: 0786-1 - CMP Order Info: [id number] - LIPID Order Info: 3 - TSH Order Info: 7 - T4F N Result Comment: <200 mg/dL Desirable 200-240 mg/dL Borderline >240 mg/dL High Risk Performed By: #### L 500.4100, L501.9985, L500.4050, L506.0400, L501.9520, L100.0100 #### [facility] [address] [place], [address] Cholesterol in HDL [Mass/Vol] 54 mg/dL Normal [facility] Comment on above: Order Comment: Order Date: 01/23/24 Order Info: 785- - CMP Order Info: - LIPID Order Info: 3 - TSH Order Info: 3023-12 - T4F N Result Comment: The drugs N-Acetylcysteine and Metamizole may falsely depress this assay. Reference Range HDL <40 mg/dL Low HDL Cholesterol HDL >or= 60 mg/dL High HDL Cholesterol Performed By: #### L 500.4100, L501.9985, L500.4050, L506.0400, L501.9520, L100.0100 #### [facility] [address] [place], [address] Cholesterol in LDL [Mass/Vol] 119 mg/dL Normal 0-130 [facility] Comment on above: Order Comment: Order Date: 01/23/24 Order Info: 0786-1 - CMP Order Info: [id number] - LIPID Order Info: 3 - TSH Order Info: 7 - T4F N Performed By: #### L 500.4100, L501.9985, L500.4050, L506.0400, L501.9520, L100.0100 #### [facility] [address] [place], [address] Cholesterol in VLDL [Mass/Vol] 21 mg/dL Normal 5-40 [facility] Comment on above: Order Comment: Order Date: 01/23/24 Order Info: 785- - CMP Order Info: - LIPID Order Info: 3 - TSH Order Info: 7 - T4F N Performed By: #### L 500.4100, L501.9985, L500.4050, L506.0400, L501.9520, L100.0100 #### [facility] [address] [place], [address] Triglyceride [Mass/Vol] 103 mg/dL Normal [facility] Comment on above: Order Comment: Order Date: 01/23/24 Order Info: 785-06 - CMP Order Info: - LIPID Order Info: 3 - TSH Order Info: 3023-12 - T4F N Result Comment: The drugs N-Acetylcysteine and Metamizole may falsely depress this assay. Serum Triglycerides Reference Interval Normal <150 mg/dL Borderline high 150 - 199 mg/dL High 200 - 499 mg/dL Very High > or = 500 mg/dL Performed By: #### L 500.4100, L501.9985, L500.4050, L506.0400, L501.9520, L100.0100 #### [facility] [address] [place], [address] T4 Free Directon 01-25-2024 T4 FREE DIRECT 0.80 ng/dL Normal 0.76-1.46 [facility] Comment on above: Order Comment: Order Date: 01/23/24 Order Info: 07 - CMP Order Info: [id number] - LIPID Order Info: [id number] - TSH Order Info: 7 - T4F N Performed By: #### L 500.4100, L501.9985, L500.4050, L506.0400, L501.9520, L100.0100 #### [facility] [address] [place], [address] Thyroid Stim Hormone (TSH)on 01-25-2024 TSH 1.560 uIU/mL Normal 0.358-3.74 0 [facility] Comment on above: Order Comment: Order Date: 01/23/24 Order Info: 0786-1 - CMP Order Info: [id number] - LIPID Order Info: 3016-3 - TSH Order Info: 3024-7 - T4F N Performed By: #### L 500.4100, L501.9985, L500.4050, L506.0400, L501.9520, L100.0100 #### [facility] [address] [place], [address] L/S Spine Min 4 Viewson 11-10 L/S Spine Min 4 Views [facility] Services [address] [place] [address] L/S Spine Min 4 Views MR#: [id number] Acct: [id number] Name: YUMIKO SINGH Rep #: [id number] : 1965 F 58 From: Ba Hernandez MD PCP: Dr. Denise Cheng MD Status: REG CLI Study: L/S Spine Min 4 Views Date of Exam: 11/29/23 Exam# [id number] Ordering Dr: Wagner Whitten DPLashae [id number] STUDY: X-RAY - LUMBAR SPINE REASON FOR [...] 14:47 EDT Reading Location ID and State: [address] [place] [address] , Service support , CC: FREEMAN Whitten; Dr. Denise Cheng MD Crm Technical Lead: Signed Normal [facility] Basophil percentageOrdered B y: Ciera Stathopoulrobbi on 06-09-2023 Bilirubin [Mass/Vol] 0.80 mg/dL 0.20-1.00 [facility] Comment on above: For patients on eltr ombopag therapy, use of Dimension [place] TBIL is not recommended. Chloride [Moles/Vol] 107 mmol/L 98-107 [facility] Cholesterol [Mass/Vol] 185 mg/dL <200 [facility] Comment on above: <200 mg/dL Desirable 200-240 mg/dL Borderline >240 mg/dL High Risk Glucose [Mass/Vol] 108 mg/dL 74-106 [facility] Comment on above: Fasting Glucose resu lt from 100 to 125 mg/dL suggests IMPAIRED HOMEOSTASIS per A.D.A. criteria. Potassium [Moles/Vol] 4.1 mmol/L 3.5-5.1 [facility] Protein [Mass/Vol] 7.1 g/dL 6.4-8.2 [facility] Sodium [Moles/Vol] 141 mmol/L 136-145 [facility] Triglyceride [Mass/Vol] 441 mg/dL <199 [facility] Comment on above: The drugs N-Acetylcy steine [...] 06-09-2023 ALP [Catalytic activity/Vol] 70 U/L 45-117 [facility] ALT [Catalytic activity/Vol] 44 U/L 13-56 [facility] CO2 [Moles/Vol] 28.0 mmol/L 21.0-32.0 [facility] Globulin (S) [Mass/Vol] 3.3 g/dL 2.2-4.2 [facility] Urea nitrogen/Creatinine [Mass ratio] 27.5 mg/mg 10-20 [facility] No Panel InformationOrdered By: Ciera Granados on 06-09-2023 Estimated GFR (MDRD) Amer 100 mL/min >60 [facility] Comment on above: GFR Calc Estimated GFR (MDRD) Non-Af Amer 83 mL/min >60 [facility] Comment on above: Non- GFR Calc Vitamin D 25-Hydroxy 34.9 ng/mL [facility] Comment on above: Vitamin D 25(OH) Sta tus Range Deficiency <20 ng/mL (50nmol/L) Insufficiency 20 - 30 ng/mL (50 - 75 nmol/L) Sufficiency 30 - 100 ng/mL (75 - 250 nmol/L) Toxicity >100 ng/mL (>250 nmol/L) Serum or plasma albumin hannah urement (mass/volume)Ordered By: Ciera Granados on 06-09-2023 Albumin [Mass/Vol] 3.8 g/dL 3.2-5.0 [facility] Serum or plasma albumin/glob ulin mass ratioOrdered By: Ciera Boylethe [facility]opedic specialty hospitalmiquel on 06-09-2023 Albumin/Globulin [Mass ratio] 1.2 {ratio} 0.9-2.4 [facility] Serum or plasma calcium hannah urement (mass/volume)Ordered By: Ciera Boylethe [facility]opedic specialty hospitalmiquel on 06-09-2023 Calcium [Mass/Vol] 8.7 mg/dL 8.5-10.1 [facility] Serum or plasma cholesterol in HDL measurement (mass/volume)Ordered By: Ciera Granados on 06-09-2023 Cholesterol in HDL [Mass/Vol] 29 mg/dL >40 [facility] Comment on above: The drugs N-Acetylcy steine and Metamizole may falsely depress this assay. Reference Range HDL <40 mg/dL Low HDL Cholesterol HDL >or= 60 mg/dL High HDL Cholesterol Serum or plasma cholesterol in VLDL measurement (mass/volume)Ordered By: Ciera Granados on 06-09-2023 Cholesterol in VLDL [Mass/Vol] [facility] Comment on above: Test not performed Serum or plasma creatinine m easurement (mass/volume)Ordered By: Ciera Granados on 06-09-2023 Creatinine [Mass/Vol] 0.76 mg/dL 0.55-1.02 [facility] Comment on above: The validity of the calculated GFR & GFRAA in patients over 70 years has not been determined. Clinical correlation is essential. Serum or plasma low density lipoprotein (LDL) cholesterol measurement (mass/volume)Ordered By: Ciera Granados on 06-09-2023 Cholesterol in LDL [Mass/Vol] [facility] Comment on above: Test not performed Serum or plasma urea nitroge n measurement (mass/volume)Ordered By: Ciera Granados on 06-09-2023 Urea nitrogen [Mass/Vol] 21 mg/dL 7-18 [facility] Thin prep Papanicolaou smear with manual screeningOrdered By: Ciera Granados on 06-09-2023 Thin prep Papanicolaou smear with manual screening 35 U/L 15-37 [facility] Thin prep Papanicolaou smear with manual screening 6 5-15 [facility] Whole blood hemoglobin A1c/t otal hemoglobin ratio (mass fraction)Ordered By: Ciera Granados on 06-09-2023 HbA1c (Bld) [Mass fraction] 5.1 % 3.8-5.6 [facility] Comment on above: Normal < 5.7 % Predi abetic 5.7 - 6.4 % Diabetic >or= 6.5 % Please note range changes. No Panel Informationon 04-03 [facility] -- YUMIKO SINGH ([id number]) 1965 F Date Time Provider Department 02/01/23 [...] for c (more content not included)... Normal [facility] XR FOOT 3V AP/LAT/OBL BILon 02-01-2023 XR FOOT 3V AP/LAT/OBL TRAM * * *Final Report* * * DATE OF EXAM: Feb 01 2023 1:48PM [id number] - XR FOOT 3V AP/LAT/OBL TARM / PROCEDURE REASON: Plantar fascial fibromatosis * [...] tissue swelling. IMPRESSION: Bilateral plantar calcaneal spurs Crm Technical Lead: PSCB Transcribe Date/Time: Feb 04 2023 6:38P Dictated by : HECTOR DOMÍNGUEZ MD This examination was interpreted and the report reviewed and electronically signed by: HECTOR DOMÍNGUEZ MD on Feb 04 2023 6:39PM EST [id number] Normal [facility] XR FOOT GENERAL 3V AP/LAT/OB L BILATERALon 02-01-2023 [facility] Absolute lymphocyte countOrd ered By: Cecilio Lopez on 01-12-2023 Lymphocytes Auto (Unsp spec) [#/Vol] 2.95 10*3/uL 0.83-4.51 [facility] Basophil percentageOrdered B y: Cecilio Lopez on 01-12-2023 Basophils/100 WBC (Bld) 1.0 % 0-1 [facility] Bilirubin [Mass/Vol] 1.10 mg/dL 0.20-1.00 [facility] Comment on above: For patients on eltr ombopag therapy, use of Dimension [place] TBIL is not recommended. Chloride [Moles/Vol] 106 mmol/L 98-107 [facility] Eosinophils/100 WBC (Bld) 3.6 % 0-5 [facility] Glucose [Mass/Vol] 103 mg/dL 74-106 [facility] Comment on above: Fasting Glucose resu lt from 100 to 125 mg/dL suggests IMPAIRED HOMEOSTASIS per A.D.A. criteria. LDH [Catalytic activity/Vol] 165 U/L 84-246 [facility] Neutrophils (Bld) [#/Vol] 3.3 10*3/uL 2.0-7.7 [facility] Neutrophils/100 WBC (Bld) 45.2 % 47-70 [facility] Potassium [Moles/Vol] 3.7 mmol/L 3.5-5.1 [facility] Protein [Mass/Vol] 7.2 g/dL 6.4-8.2 [facility] Sodium [Moles/Vol] 142 mmol/L 136-145 [facility] WBC (Bld) [#/Vol] 7.2 10*3/uL 4.4-11.0 [facility] Blood erythrocytes count (nu mber/volume)Ordered By: Cecilio Lopez on 01-12-2023 RBC (Bld) [#/Vol] 4.13 10*6/uL 4.2-5.4 [facility] Blood hemoglobin measurement (mass/volume)Ordered By: Cecilio Lopez on 01-12-2023 Hemoglobin (Bld) [Mass/Vol] 13.7 g/dL 12.0-15.0 [facility] Blood lymphocytes/100 leukoc ytesOrdered By: Cecilio Lopez on 01-12-2023 Lymphocytes/100 WBC (Bld) 40.8 % 19-41 [facility] Blood monocytes/100 leukocyt esOrdered By: Cecilio Lopez on 01-12-2023 Monocytes/100 WBC (Bld) 9.3 % 0-10 [facility] Blood platelet mean volumeOr dered By: Cecilio Lopez on 01-12-2023 Platelet mean volume (Bld) [Entitic vol] 8.9 fL 6.2-12.0 [facility] Determination of erythrocyte mean corpuscular volume (MCV)Ordered By: Cecilio Lopez on 01-12-2023 MCV (RBC) [Entitic vol] 96.9 fL 81-99 [facility] Hematocrit Auto (Bld) [Volum e fraction]Ordered By: Cecilio Lopez on 01-12-2023 Hematocrit (Bld) [Volume fraction] 40.0 % 37-47 [facility] - Chemistry and C hemistry - challengeOrdered By: [facility] Lopez on 01-12-2023 ALP [Catalytic activity/Vol] 67 U/L 45-117 [facility] ALT [Catalytic activity/Vol] 42 U/L 13-56 [facility] CO2 [Moles/Vol] 29.0 mmol/L 21.0-32.0 [facility] Globulin (S) [Mass/Vol] 3.4 g/dL 2.2-4.2 [facility] Urea nitrogen/Creatinine [Mass ratio] 15.9 mg/mg 10-20 [facility] - Hematology and Cell countsOrdered By: Cecilio Lopez on 01-12-2023 Erythrocyte distribution width (RBC) [Entitic vol] 49.1 fL 35.1-43.9 [facility] Erythrocyte distribution width (RBC) [Ratio] 13.7 % 11.6-14.6 [facility] Immature granulocytes/100 WBC (Bld) 0.100 % 0.0-0.9 [facility] Comment on above: IG% - Immature Granu locytes (promyelocytes, myelocytes and metamyelocytes) > 1% indicates that a LEFT SHIFT is Present. MCH (RBC) [Entitic mass] 33.2 pg 27.0-32.0 [facility] Nucleated RBC/100 WBC (Bld) [Ratio] 0 % 0-5 [facility] MCHC Auto (RBC) [Mass/Vol]Or dered By: Cecilio Lopez on 01-12-2023 MCHC (RBC) [Mass/Vol] 34.3 g/dL 32-36 [facility] No Panel InformationOrdered By: Cecilio Lopez on 01-12-2023 Estimated GFR (MDRD) Amer 85 mL/min >60 [facility] Comment on above: GFR Calc Estimated GFR (MDRD) Non-Af Amer 70 mL/min >60 [facility] Comment on above: Non- GFR Calc Platelets bldOrdered By: Damion Lopez on 01-12-2023 Platelets (Bld) [#/Vol] 296 10*3/uL 150-450 [facility] Serum or plasma albumin hannah urement (mass/volume)Ordered By: Cecilio Lopez on 01-12-2023 Albumin [Mass/Vol] 3.8 g/dL 3.2-5.0 [facility] Serum or plasma albumin/glob ulin mass ratioOrdered By: Cecilio Lopez on 01-12-2023 Albumin/Globulin [Mass ratio] 1.1 {ratio} 0.9-2.4 [facility] Serum or plasma calcium hannah urement (mass/volume)Ordered By: Cecilio Lopez on 01-12-2023 Calcium [Mass/Vol] 9.3 mg/dL 8.5-10.1 [facility] Serum or plasma creatinine m easurement (mass/volume)Ordered By: Cecilio Lopez on 01-12-2023 Creatinine [Mass/Vol] 0.88 mg/dL 0.55-1.02 [facility] Comment on above: The validity of the calculated GFR & GFRAA in patients over 70 years has not been determined. Clinical correlation is essential. Serum or plasma urea nitroge n measurement (mass/volume)Ordered By: Cecilio Lopez on 01-12-2023 Urea nitrogen [Mass/Vol] 14 mg/dL 7-18 [facility] Thin prep Papanicolaou smear with manual screeningOrdered By: Cecilio Lopez on 01-12-2023 Thin prep Papanicolaou smear with manual screening 27 U/L 15-37 [facility] Thin prep Papanicolaou smear with manual screening 7 5-15 [facility] Absolute lymphocyte countOrd ered By: Dr. Cheng on 11-09-2022 Lymphocytes Auto (Unsp spec) [#/Vol] 2.89 10*3/uL 0.83-4.51 [facility] Basophil percentageOrdered B y: Dr. Cheng on 11-09-2022 Basophils/100 WBC (Bld) 0.9 % 0-1 [facility] Bilirubin [Mass/Vol] 0.70 mg/dL 0.20-1.00 [facility] Comment on above: For patients on eltr ombopag therapy, use of Dimension [place] TBIL is not recommended. Chloride [Moles/Vol] 107 mmol/L 98-107 [facility] Eosinophils/100 WBC (Bld) 2.8 % 0-5 [facility] Glucose [Mass/Vol] 109 mg/dL 74-106 [facility] Comment on above: Fasting Glucose resu lt from 100 to 125 mg/dL suggests IMPAIRED HOMEOSTASIS per A.D.A. criteria. Neutrophils (Bld) [#/Vol] 2.9 10*3/uL 2.0-7.7 [facility] Neutrophils/100 WBC (Bld) 42.5 % 47-70 [facility] Potassium [Moles/Vol] 4.2 mmol/L 3.5-5.1 [facility] Protein [Mass/Vol] 7.3 g/dL 6.4-8.2 [facility] Sodium [Moles/Vol] 139 mmol/L 136-145 [facility] WBC (Bld) [#/Vol] 6.8 10*3/uL 4.4-11.0 [facility] Blood erythrocytes count (nu mber/volume)Ordered By: Dr. Cheng on 11-09-2022 RBC (Bld) [#/Vol] 4.36 10*6/uL 4.2-5.4 [facility] Blood hemoglobin measurement (mass/volume)Ordered By: Dr. Cheng on 11-09-2022 Hemoglobin (Bld) [Mass/Vol] 13.8 g/dL 12.0-15.0 [facility] Blood lymphocytes/100 leukoc ytesOrdered By: Dr. Cheng on 11-09-2022 Lymphocytes/100 WBC (Bld) 42.5 % 19-41 [facility] Blood monocytes/100 leukocyt esOrdered By: Dr. Cheng on 11-09-2022 Monocytes/100 WBC (Bld) 11.2 % 0-10 [facility] Blood platelet mean volumeOr dered By: Dr. Cheng on 11-09-2022 Platelet mean volume (Bld) [Entitic vol] 9.2 fL 6.2-12.0 [facility] Determination of erythrocyte mean corpuscular volume (MCV)Ordered By: Dr. Cheng on 11-09-2022 MCV (RBC) [Entitic vol] 95.4 fL 81-99 [facility] Hematocrit Auto (Bld) [Volum e fraction]Ordered By: Dr. Cheng on 11-09-2022 Hematocrit (Bld) [Volume fraction] 41.6 % 37-47 [facility] Laboratory - Chemistry and C hemistry - challengeOrdered By: Dr. Cheng on 11-09-2022 Albumin [Mass/Vol] 3.9 g/dL 2.9-4.4 [facility] ALP [Catalytic activity/Vol] 68 U/L 45-117 [facility] ALT [Catalytic activity/Vol] 42 U/L 13-56 [facility] CO2 [Moles/Vol] 26.0 mmol/L 21.0-32.0 [facility] Globulin (S) [Mass/Vol] 3.3 g/dL 2.2-4.2 [facility] Urea nitrogen/Creatinine [Mass ratio] 30.0 mg/mg 10-20 [facility] Laboratory - Hematology and Cell countsOrdered By: Dr. Cheng on 11-09-2022 Erythrocyte distribution width (RBC) [Entitic vol] 44.7 fL 35.1-43.9 [facility] Erythrocyte distribution width (RBC) [Ratio] 12.8 % 11.6-14.6 [facility] Immature granulocytes/100 WBC (Bld) 0.100 % 0.0-0.9 [facility] Comment on above: IG% - Immature Granu locytes (promyelocytes, myelocytes and metamyelocytes) > 1% indicates that a LEFT SHIFT is Present. MCH (RBC) [Entitic mass] 31.7 pg 27.0-32.0 [facility] Nucleated RBC/100 WBC (Bld) [Ratio] 0 % 0-5 [facility] MCHC Auto (RBC) [Mass/Vol]Or dered By: Dr. Cheng on 11-09-2022 MCHC (RBC) [Mass/Vol] 33.2 g/dL 32-36 [facility] No Panel InformationOrdered By: Dr. Cheng on 11-09-2022 Addendum Document Comment . [facility] Comment on above: The SPE pattern appe ars unremarkable. Evidence ofmonoclonal protein is not apparent.Performed at: [facility] [id number] Director: Dominick De La Rosa PhD, Phone: [phone] Aexvn-1-Ftzqmrxhf 0.2 g/dL 0.0-0.4 [facility] Zwkez-6-Uydesvvzi 0.6 g/dL 0.4-1.0 [facility] Estimated GFR (MDRD) Amer 87 mL/min >60 [facility] Comment on above: GFR Calc Estimated GFR (MDRD) Non-Af Amer 72 mL/min >60 [facility] Comment on above: Non- GFR Calc Gamma Globulins 1.2 g/dL 0.4-1.8 [facility] Platelets bldOrdered By: Dr. Cheng on 11-09-2022 Platelets (Bld) [#/Vol] 312 10*3/uL 150-450 [facility] Protein Fractions Elph [Inte rp]Ordered By: Dr. Cheng on 11-09-2022 Protein Fractions [Interp] Comment . [facility] Comment on above: Protein electrophore sis scan will follow via computer,mail, or wiring inspector delivery. Serum albumin to globulin ra marilyn by protein electrophoresisOrdered By: Dr. Cheng on 11-09-2022 Albumin/Globulin Elph [Mass ratio] 1.3 0.7-1.7 [facility] Serum globulin measurement ( mass/volume)Ordered By: Dr. Cheng on 11-09-2022 Globulin (S) [Mass/Vol] 3.0 g/dL 2.2-3.9 [facility] Serum or plasma C reactive p rotein measurement (mass/volume)Ordered By: Dr. Cheng on 11-09-2022 CRP [Mass/Vol] mg/L 0.0-3.0 [facility] Comment on above: C-Reactive Protein ( CRP) provides useful information for thediagnosis, therapy and monitoring of inflammatory processesand associated diseases. For the evaluation of Relative Riskfor Cardiovascular Disease, a High Sensitivity CRP (HSCRP)should be ordered. Serum or plasma albumin hannah urement (mass/volume)Ordered By: Dr. Cehng on 11-09-2022 Albumin [Mass/Vol] 4.0 g/dL 3.2-5.0 [facility] Serum or plasma albumin/glob ulin mass ratioOrdered By: Dr. Cheng on 11-09-2022 Albumin/Globulin [Mass ratio] 1.2 {ratio} 0.9-2.4 [facility] Serum or plasma beta globuli n measurement by electrophoresis (mass/volume)Ordered By: Dr. Cheng on 11-09-2022 Beta globulin Elph [Mass/Vol] 1.1 g/dL 0.7-1.3 [facility] Serum or plasma calcium hannah urement (mass/volume)Ordered By: Dr. Cheng on 11-09-2022 Calcium [Mass/Vol] 9.4 mg/dL 8.5-10.1 [facility] Serum or plasma creatinine m easurement (mass/volume)Ordered By: Dr. Cheng on 11-09-2022 Creatinine [Mass/Vol] 0.87 mg/dL 0.55-1.02 [facility] Comment on above: The validity of the calculated GFR & GFRAA in patients over 70 years has not been determined. Clinical correlation is essential. Serum or plasma urea nitroge n measurement (mass/volume)Ordered By: Dr. Cheng on 11-09-2022 Urea nitrogen [Mass/Vol] 26 mg/dL 7-18 [facility] Thin prep Papanicolaou smear with manual screeningOrdered By: Dr. Cheng on 11-09-2022 Thin prep Papanicolaou smear with manual screening 28 U/L 15-37 [facility] Thin prep Papanicolaou smear with manual screening 6 5-15 [facility] Thin prep Papanicolaou smear with manual screening See comment [facility] Comment on above: Result: Not Observed Total protein bloodOrdered B y: Dr. Cheng on 11-09-2022 Protein [Mass/Vol] 6.9 g/dL 6.0-8.5 [facility] Absolute lymphocyte counton 01-13-2022 Lymphocytes Auto (Unsp spec) [#/Vol] 2.39 10*3/uL 0.83-4.51 [facility] Work Phone: Basophil percentageon 2021 Basophils/100 WBC (Bld) 0.7 % 0-1 [facility] Work Phone: Bilirubin [Mass/Vol] 0.60 mg/dL 0.20-1.00 [facility] Work Phone: Comment on above: For patients on eltr ombopag therapy, use of [place] TBIL is not recommended. Chloride [Moles/Vol] 110 mmol/L 98-107 [facility] Work Phone: [phone] Eosinophils/100 WBC (Bld) 3.0 % 0-5 [facility] Work Phone: Glucose [Mass/Vol] 104 mg/dL 74-106 [facility] Work Phone: Comment on above: Fasting Glucose resu lt from 100 to 125 mg/dL suggests IMPAIRED HOMEOSTASIS per A.D.A. criteria. Neutrophils (Bld) [#/Vol] 2.3 10*3/uL 2.0-7.7 [facility] Work Phone: Neutrophils/100 WBC (Bld) 42.2 % 47-70 [facility] Work Phone: Potassium [Moles/Vol] 4.2 mmol/L 3.5-5.1 [facility] Work Phone: Protein [Mass/Vol] 6.8 g/dL 6.4-8.2 [facility] Work Phone: Sodium [Moles/Vol] 142 mmol/L 136-145 [facility] Work Phone: WBC (Bld) [#/Vol] 5.4 10*3/uL 4.4-11.0 [facility] Work Phone: Blood erythrocytes count (nu mber/volume)on 01-13-2022 RBC (Bld) [#/Vol] 3.81 10*6/uL 4.2-5.4 [facility] Work Phone: Blood hemoglobin measurement (mass/volume)on 01-13-2022 Hemoglobin (Bld) [Mass/Vol] 12.0 g/dL 12.0-15.0 [facility] Work Phone: Blood lymphocytes/100 leukoc yteson 01-13-2022 Lymphocytes/100 WBC (Bld) 44.1 % 19-41 [facility] Work Phone: Blood monocytes/100 leukocyt eson 01-13-2022 Monocytes/100 WBC (Bld) 9.8 % 0-10 [facility] Work Phone: Blood platelet mean volumeon 01-13-2022 Platelet mean volume (Bld) [Entitic vol] 9.2 fL 6.2-12.0 [facility] Work Phone: Determination of erythrocyte mean corpuscular volume (MCV)on 01-13-2022 MCV (RBC) [Entitic vol] 96.3 fL 81-99 [facility] Work Phone: Hematocrit Auto (Bld) [Volum e fraction]on 01-13-2022 Hematocrit (Bld) [Volume fraction] 36.7 % 37-47 [facility] Work Phone: Laboratory - Chemistry and C hemistry - challengeon 01-13-2022 ALP [Catalytic activity/Vol] 55 U/L 45-117 [facility] Work Phone: ALT [Catalytic activity/Vol] 52 U/L 13-56 [facility] Work Phone: CO2 [Moles/Vol] 30.0 mmol/L 21.0-32.0 [facility] Work Phone: Globulin (S) [Mass/Vol] 3.2 g/dL 2.2-4.2 [facility] Work Phone: Urea nitrogen/Creatinine [Mass ratio] 24.3 mg/mg 10-20 [facility] Work Phone: Laboratory - Hematology and Cell countson 01-13-2022 Erythrocyte distribution width (RBC) [Entitic vol] 43.4 fL 35.1-43.9 [facility] Work Phone: Erythrocyte distribution width (RBC) [Ratio] 12.3 % 11.6-14.6 [facility] Work Phone: Immature granulocytes/100 WBC (Bld) 0.200 % 0.0-0.9 [facility] Work Phone: Comment on above: IG% - Immature Granu locytes (promyelocytes, myelocytes and metamyelocytes) > 1% indicates that a LEFT SHIFT is Present. MCH (RBC) [Entitic mass] 31.5 pg 27.0-32.0 [facility] Work Phone: Nucleated RBC/100 WBC (Bld) [Ratio] 0 % 0-5 [facility] Work Phone: MCHC Auto (RBC) [Mass/Vol]on 01-13-2022 MCHC (RBC) [Mass/Vol] 32.7 g/dL 32-36 [facility] Work Phone: No Panel Informationon 01-13 Estimated GFR (MDRD) Amer 87 mL/min >60 [facility] Work Phone: Comment on above: GFR Calc Estimated GFR (MDRD) Non-Af Amer 72 mL/min >60 [facility] Work Phone: Comment on above: Non- GFR Calc Platelets bldon 01-13-2022 Platelets (Bld) [#/Vol] 238 10*3/uL 150-450 [facility] Work Phone: Serum or plasma albumin hannah urement (mass/volume)on 01-13-2022 Albumin [Mass/Vol] 3.6 g/dL 3.2-5.0 [facility] Work Phone: Serum or plasma albumin/glob ulin mass ratioon 01-13-2022 Albumin/Globulin [Mass ratio] 1.1 {ratio} 0.9-2.4 [facility] Work Phone: Serum or plasma calcium hannah urement (mass/volume)on 01-13-2022 Calcium [Mass/Vol] 8.8 mg/dL 8.5-10.1 [facility] Work Phone: Serum or plasma creatinine m easurement (mass/volume)on 01-13-2022 Creatinine [Mass/Vol] 0.86 mg/dL 0.55-1.02 [facility] Work Phone: Comment on above: The validity of the calculated GFR & GFRAA in patients over 70 years has not been determined. Clinical correlation is essential. Serum or plasma urea nitroge n measurement (mass/volume)on 01-13-2022 Urea nitrogen [Mass/Vol] 21 mg/dL 7-18 [facility] Work Phone: Thin prep Papanicolaou smear with manual screeningon 01-13-2022 Thin prep Papanicolaou smear with manual screening 30 U/L 15-37 [facility] Work Phone: Thin prep Papanicolaou smear with manual screening 2 5-15 [facility] Work Phone: Thin prep Papanicolaou smear with manual screening 158 U/L 84-246 [facility] Work Phone: Absolute lymphocyte counton 10-06-2021 Lymphocytes Auto (Unsp spec) [#/Vol] 2.55 10*3/uL 0.83-4.51 [facility] Work Phone: Basophil percentageon 2021 Basophils/100 WBC (Bld) 0.9 % 0-1 [facility] Work Phone: Bilirubin [Mass/Vol] 0.50 mg/dL 0.20-1.00 [facility] Work Phone: Comment on above: For patients on eltr ombopag therapy, use of [place] TBIL is not recommended. Chloride [Moles/Vol] 107 mmol/L 98-107 [facility] Work Phone: Eosinophils/100 WBC (Bld) 2.3 % 0-5 [facility] Work Phone: Glucose [Mass/Vol] 99 mg/dL 74-106 [facility] Work Phone: Neutrophils (Bld) [#/Vol] 2.9 10*3/uL 2.0-7.7 [facility] Work Phone: Neutrophils/100 WBC (Bld) 45.7 % 47-70 [facility] Work Phone: Potassium [Moles/Vol] 3.7 mmol/L 3.5-5.1 [facility] Work Phone: Protein [Mass/Vol] 7.6 g/dL 6.4-8.2 [facility] Work [facility]: Sodium [Moles/Vol] 141 mmol/L 136-145 [facility] Work Phone: WBC (Bld) [#/Vol] 6.4 10*3/uL 4.4-11.0 [facility] Work Phone: [phone] Blood erythrocytes count (nu mber/volume)on 10-06-2021 RBC (Bld) [#/Vol] 3.87 10*6/uL 4.2-5.4 [facility]: Blood hemoglobin measurement (mass/volume)on 10-06-2021 Hemoglobin (Bld) [Mass/Vol] 12.3 g/dL 12.0-15.0 [facility] Work Phone: Blood lymphocytes/100 leukoc yteson 10-06-2021 Lymphocytes/100 WBC (Bld) 39.8 % 19-41 [facility] Work Phone: Blood monocytes/100 leukocyt eson 10-06-2021 Monocytes/100 WBC (Bld) 11.1 % 0-10 [facility] Work Phone: Blood platelet mean volumeon 10-06-2021 Platelet mean volume (Bld) [Entitic vol] 8.7 fL 6.2-12.0 [facility] Work Phone: Determination of erythrocyte mean corpuscular volume (MCV)on 10-06-2021 MCV (RBC) [Entitic vol] 96.6 fL 81-99 [facility] Work Phone: Erythrocyte sedimentation ra gary 10-06-2021 ESR (Bld) [Velocity] 3 mm/h 0-30 [facility] Work Phone: Hematocrit Auto (Bld) [Volum e fraction]on 10-06-2021 Hematocrit (Bld) [Volume fraction] 37.4 % 37-47 [facility] Work Phone: INR in Blood by Coagulation assayon 10-06-2021 INR Coag (Bld) [Relative time] 1.0 {INR} [facility] Work Phone: Laboratory - Chemistry and C hemistry - challengeon 10-06-2021 ALP [Catalytic activity/Vol] 62 U/L 45-117 [facility] Work Phone: ALT [Catalytic activity/Vol] 50 U/L 13-56 [facility] Work Phone: CO2 [Moles/Vol] 32.0 mmol/L 21.0-32.0 [facility] Work Phone: Globulin (S) [Mass/Vol] 3.6 g/dL 2.2-4.2 [facility] Work Phone: Urea nitrogen/Creatinine [Mass ratio] 19.3 mg/mg 10-20 [facility] Work Phone: [phone] Laboratory - Coagulationon 0 10-06-2021 aPTT Coag (Bld) [Time] 26.3 s 24.1-36.2 [facility] Work Phone: PT Coag (PPP) [Time] 12.4 s 11.7-14.9 [facility] Work Phone: Laboratory - Hematology and Cell countson 10-06-2021 Erythrocyte distribution width (RBC) [Entitic vol] 46.5 fL 35.1-43.9 [facility] Work Phone: Erythrocyte distribution width (RBC) [Ratio] 13.0 % 11.6-14.6 [facility] Work Phone: Immature granulocytes/100 WBC (Bld) 0.200 % 0.0-0.9 [facility] Work Phone: Comment on above: IG% - Immature Granu locytes (promyelocytes, myelocytes and metamyelocytes) > 1% indicates that a LEFT SHIFT is Present. MCH (RBC) [Entitic mass] 31.8 pg 27.0-32.0 [facility] Work Phone: Nucleated RBC/100 WBC (Bld) [Ratio] 0 % 0-5 [facility] Work Phone: MCHC Auto (RBC) [Mass/Vol]on 10-06-2021 MCHC (RBC) [Mass/Vol] 32.9 g/dL 32-36 [facility] Work Phone: No Panel Informationon 10-06 Estimated GFR (MDRD) Amer 85 mL/min >60 [facility] Work Phone: Comment on above: GFR Calc Estimated GFR (MDRD) Non-Af Amer 70 mL/min >60 [facility] Work Phone: Comment on above: Non- GFR Calc Platelets bldon 10-06-2021 Platelets (Bld) [#/Vol] 276 10*3/uL 150-450 [facility] Work Phone: Serum or plasma albumin hannah urement (mass/volume)on 10-06-2021 Albumin [Mass/Vol] 4.0 g/dL 3.2-5.0 [facility] Work Phone: Serum or plasma albumin/glob ulin mass ratioon 10-06-2021 Albumin/Globulin [Mass ratio] 1.1 {ratio} 0.9-2.4 [facility] Work Phone: Serum or plasma calcium hannah urement (mass/volume)on 10-06-2021 Calcium [Mass/Vol] 9.0 mg/dL 8.5-10.1 [facility] Work Phone: Serum or plasma creatinine m easurement (mass/volume)on 10-06-2021 Creatinine [Mass/Vol] 0.88 mg/dL 0.55-1.02 [facility] Work Phone: Comment on above: The validity of the calculated GFR & GFRAA in patients over 70 years has not been determined. Clinical correlation is essential. Serum or plasma urea nitroge n measurement (mass/volume)on 10-06-2021 Urea nitrogen [Mass/Vol] 17 mg/dL 7-18 [facility] Work Phone: Thin prep Papanicolaou smear with manual screeningon 10-06-2021 Thin prep Papanicolaou smear with manual screening 33 U/L 15-37 [facility] Work Phone: Thin prep Papanicolaou smear with manual screening 2 5-15 [facility] Work Phone: Thin prep Papanicolaou smear with manual screening 175 U/L 84-246 [facility] Work Phone: Basophil percentageon 2021 WBC (Bld) [#/Vol] 7.7 10*3/uL 4.4-11.0 [facility] Work Phone: Blood erythrocytes count (nu mber/volume)on 07-26-2021 RBC (Bld) [#/Vol] 4.04 10*6/uL 4.2-5.4 [facility] Work Phone: Blood hemoglobin measurement (mass/volume)on 07-26-2021 Hemoglobin (Bld) [Mass/Vol] 13.0 g/dL 12.0-15.0 [facility] Work Phone: Blood platelet mean volumeon 07-26-2021 Platelet mean volume (Bld) [Entitic vol] 9.3 fL 6.2-12.0 [facility] Work Phone: Determination of erythrocyte mean corpuscular volume (MCV)on 07-26-2021 MCV (RBC) [Entitic vol] 96.5 fL 81-99 [facility] Work Phone: Hematocrit Auto (Bld) [Volum e fraction]on 07-26-2021 Hematocrit (Bld) [Volume fraction] 39.0 % 37-47 [facility] Work Phone: Laboratory - Hematology and Cell countson 07-26-2021 Erythrocyte distribution width (RBC) [Entitic vol] 44.2 fL 35.1-43.9 [facility] Work Phone: Erythrocyte distribution width (RBC) [Ratio] 12.5 % 11.6-14.6 [facility] Work Phone: MCH (RBC) [Entitic mass] 32.2 pg 27.0-32.0 [facility] Work Phone: MCHC Auto (RBC) [Mass/Vol]on 07-26-2021 MCHC (RBC) [Mass/Vol] 33.3 g/dL 32-36 [facility] Work Phone: No Panel Informationon 07-26 Vitamin D 25-Hydroxy 26.6 ng/mL [facility] Work Phone: Comment on above: Vitamin D 25(OH) Sta tus Range Deficiency <20 ng/mL (50nmol/L) Insufficiency 20 - 30 ng/mL (50 - 75 nmol/L) Sufficiency 30 - 100 ng/mL (75 - 250 nmol/L) Toxicity >100 ng/mL (>250 nmol/L) Platelets bldon 07-26-2021 Platelets (Bld) [#/Vol] 296 10*3/uL 150-450 [facility] Work Phone: Discharge Summaryon 06-27-19 18 Discharge Summary Normal [facility]) Main OR Intraop Recordon Main OR Intraop Record Normal Counts include 234 beds at the [facility]) CBLon 06-07-2017 CBL . MICRO - [...] days.Performing Locations*1: This test was performed at: [address], [address] [place] [address] ([place]) Comment on above: Performed By: #### C BC, ADIFF, ANEU, PRO, GFR, CMP ####[place] [address] CBL . MICRO - MicrobiologyPROCEDURE: Blood Culture [...] days.Performing Locations*1: This test was performed at: [address], [address] [place] [address] ([place]) Comment on above: Performed By: #### C BC, ADIFF, ANEU, PRO, GFR, CMP ####[place] [address] CGEFANon 06-05-2017 CGEFAN . MICRO - MicrobiologyPROCEDURE: [...] ResistantSulfaPerforming Locations*1: This test was performed at: [facility], [address] [place] [address], [address] , [facility] ([place]) Comment on above: Performed By: #### C BC, ADIFF, ANEU, PRO, GFR, CMP ####[place] [address] Depart Summaryon 06-05-2017 Depart Summary Normal [facility] ([place]) [employer] DEVELOPER Rounding Noteon 06-05-20 17 [employer] DEVELOPER Rounding Note Normal [facility] ([place] [employer] DEVELOPER Rounding Note Normal [facility]) Infectious Disease Progress Noteon 06-05-2017 Infectious Disease Progress Note Normal [facility] ([place] Inpatient Patient Summaryon 06-05-2017 Inpatient Patient Summary Normal [facility]) Infectious Disease Progress Noteon 06-04-2017 Infectious Disease Progress Note Normal [facility]) Progress Note-Nurseon 2016 Progress Note-Nurse Normal [facility] ([place]) [facility] 06-04-2017 LDose Vancomycin:(trough) See eMAR Normal [facility] ([place]) Comment on above: Performed By: #### C BC, ADIFF, ANEU, PRO, GFR, CMP ####[place] [address] VANCOMYCIN 12.0 mcg/mL Normal 5.0-20.0 [facility] ([place]) Comment on above: Performed By: #### C BC, ADIFF, ANEU, PRO, GFR, CMP ####[place] [address] .Auto Diffon 06-03-2017 Basophils Auto #/vol (Bld) 0.00 10 3/mcL Normal 0.00-0.27 [facility] ([place]) Comment on above: Performed By: #### C BC, ADIFF, ANEU, PRO, GFR, CMP ####[place] [address] Basophils/100 WBC Auto (Bld) 0.3 % Normal 0.0-2.5 [facility]) Comment on above: Performed By: #### C BC, ADIFF, ANEU, PRO, GFR, CMP ####[place] [address] Eosinophils 0.30 10 3/mcL Normal 0.00-0.65 [facility]) Comment on above: Performed By: #### C BC, ADIFF, ANEU, PRO, GFR, CMP ####[address] [address] Eosinophils/100 leukocytes 2.5 % Normal 0.0-6.0 [facility] ([place]) Comment on above: Performed By: #### C BC, ADIFF, ANEU, PRO, GFR, CMP ####[address] [address] Lymphocytes 2.00 10 3/mcL Normal 0.90-4.32 [facility] ([place]) Comment on above: Performed By: #### C BC, ADIFF, ANEU, PRO, GFR, CMP ####[address] [address] Lymphocytes/100 leukocytes 16.1 % Low 20.0-40.0 [facility] ([place]) Comment on above: Performed By: #### C BC, ADIFF, ANEU, PRO, GFR, CMP ####[address] [address] Monocytes 0.70 10 3/mcL Normal 0.09-1.40 [facility] ([place]) Comment on above: Performed By: #### C BC, ADIFF, ANEU, PRO, GFR, CMP ####[address] [address] Monocytes/100 leukocytes 5.8 % Normal 2.0-13.0 [facility] ([place]) Comment on above: Performed By: #### C BC, ADIFF, ANEU, PRO, GFR, CMP ####[address] [address] Neutrophils/100 WBC Auto (Bld) 75.3 % High 50.0-75.0 [facility] ([place]) Comment on above: Performed By: #### C BC, ADIFF, ANEU, PRO, GFR, CMP ####[address] [address] .GFRon 06-03-2017 eGFR (non-black) mL/min/{1.73_m2} Normal [facility] ([place]) Comment on above: Result Comment: GFR Population [...] C BC, ADIFF, ANEU, PRO, GFR, CMP ####[place] [address] .NEUABSon 06-03-2017 Neutrophils 9.40 10 3/mcL High 2.25-8.10 [facility] ([place]) Comment on above: Performed By: #### C BC, ADIFF, ANEU, PRO, GFR, CMP ####[place] [address] CBCon 06-03-2017 Erythrocyte distribution width Auto Ratio (RBC) 12.4 % Normal 11.5-15.5 [facility] ([place]) Comment on above: Performed By: #### C BC, ADIFF, ANEU, PRO, GFR, CMP ####[place] [address] Erythrocytes (RBC) 3.54 10 6/mcL Low 4.10-5.30 [facility] ([place]) Comment on above: Performed By: #### C BC, ADIFF, ANEU, PRO, GFR, CMP ####[place] [address] Hematocrit (HCT) 32.5 % Low 34.0-46.0 [facility] ([place]) Comment on above: Performed By: #### C BC, ADIFF, ANEU, PRO, GFR, CMP ####[place] [address] Hemoglobin mass conc (Bld) 11.2 G/dL Low 12.0-16.0 [facility] ([place]) Comment on above: Performed By: #### C BC, ADIFF, ANEU, PRO, GFR, CMP ####[place] [address] MCH 31.6 pg Normal 27.0-33.0 [facility] ([place]) Comment on above: Performed By: #### C BC, ADIFF, ANEU, PRO, GFR, CMP ####[place] [address] MCHC mass conc (RBC) 34.5 G/dL Normal 32.0-36.0 [facility] ([place]) Comment on above: Performed By: #### C BC, ADIFF, ANEU, PRO, GFR, CMP ####[place] [address] MCV 91.6 fL Normal 80.0-99.0 [facility] ([place]) Comment on above: Performed By: #### C BC, ADIFF, ANEU, PRO, GFR, CMP ####[place] [address] Platelet mean volume (PMV) 6.9 fL Normal 6.6-10.5 [facility] ([place]) Comment on above: Performed By: #### C BC, ADIFF, ANEU, PRO, GFR, CMP ####[place] [address] Platelets 339 10 3/mcL Normal 150-450 [facility] ([place]) Comment on above: Performed By: #### C BC, ADIFF, ANEU, PRO, GFR, CMP ####[place] [address] WBC (Leukocytes) 12.40 10 3/mcL High 4.50-10.80 [facility] ([place]) Comment on above: Performed By: #### C BC, ADIFF, ANEU, PRO, GFR, CMP ####[place] [address] CMPon 06-03-2017 Alanine aminotransferase (ALT) 24 U/L Normal 10-49 [facility] ([place]) Comment on above: Performed By: #### C BC, ADIFF, ANEU, PRO, GFR, CMP ####[place] [address] Albumin/Globulin Ratio 1.0 {ratio} Normal 0.9-1.6 [facility] ([place]) Comment on above: Performed By: #### C BC, ADIFF, ANEU, PRO, GFR, CMP ####[address] [address] Alk Phos 62 U/L Normal 38-126 [facility] ([place]) Comment on above: Performed By: #### C BC, ADIFF, ANEU, PRO, GFR, CMP ####[place] [address] Bili Total 0.6 mg/dL Normal 0.2-1.2 [facility] ([place]) Comment on above: Performed By: #### C BC, ADIFF, ANEU, PRO, GFR, CMP ####[place] [address] BUN/Creatinine Ratio 8.7 ratio Low 10.0-22.0 [facility] ([place]) Comment on above: Performed By: #### C BC, ADIFF, ANEU, PRO, GFR, CMP ####[place] [address] Creatinine 0.69 mg/dL Normal 0.50-1.20 [facility] ([place]) Comment on above: Performed By: #### C BC, ADIFF, ANEU, PRO, GFR, CMP ####[address] [address] Globulin 3.1 G/dL Normal 1.5-3.8 [facility] ([place]) Comment on above: Performed By: #### C BC, ADIFF, ANEU, PRO, GFR, CMP ####[place] [address] Protein 6.2 G/dL Normal 6.0-8.5 [facility] ([place]) Comment on above: Performed By: #### C BC, ADIFF, ANEU, PRO, GFR, CMP ####[place] [address] Albumin 3.1 G/dL Low 3.2-4.8 [facility] ([place]) Comment on above: Performed By: #### C BC, ADIFF, ANEU, PRO, GFR, CMP ####[address] [address] Aspartate aminotransferase (AST) 9 U/L Normal 8-34 [facility] ([place]) Comment on above: Performed By: #### C BC, ADIFF, ANEU, PRO, GFR, CMP ####[address] [address] Calcium 8.2 mg/dL Low 8.4-10.1 [facility] ([place]) Comment on above: Performed By: #### C BC, ADIFF, ANEU, PRO, GFR, CMP ####[address] [address] Chloride 108 mmol/L Normal 98-110 [facility] ([place]) Comment on above: Performed By: #### C BC, ADIFF, ANEU, PRO, GFR, CMP ####[place] [address] CO2 22 mmol/L Normal 22-32 [facility] ([place]) Comment on above: Performed By: #### C BC, ADIFF, ANEU, PRO, GFR, CMP ####[address] [address] Electrolyte Balance 8.0 mEq/L Normal 4.0-15.0 [facility] ([place]) Comment on above: Performed By: #### C BC, ADIFF, ANEU, PRO, GFR, CMP ####[address] [address] Glucose mass conc 130 mg/dL High 70-110 [facility] ([place]) Comment on above: Performed By: #### C BC, ADIFF, ANEU, PRO, GFR, CMP ####[address] [address] Potassium molar conc 4.0 mmol/L Normal 3.5-5.0 [facility] ([place]) Comment on above: Performed By: #### C BC, ADIFF, ANEU, PRO, GFR, CMP ####[place] [address] Sodium 138 mmol/L Normal 136-145 [facility] ([place]) Comment on above: Performed By: #### C BC, ADIFF, ANEU, PRO, GFR, CMP ####[address] [address] Urea nitrogen 6.0 mg/dL Low 8.0-22.0 [facility] ([place]) Comment on above: Performed By: #### C BC, ADIFF, ANEU, PRO, GFR, CMP ####[address] [address] [employer]ELOPER Rounding Noteon 06-03-20 17 [employer] DEVELOPER Rounding Note Normal [facility] ([place]) Infectious Disease Progress Noteon 06-03-2017 Infectious Disease Progress Note Normal [facility] ([place]) Progress Note-Nurseon 2016 Progress Note-Nurse Normal [facility] ([place]) .Auto Diffon 06-02-2017 Basophils Auto #/vol (Bld) 0.00 10 3/mcL Normal 0.00-0.27 [facility] ([place]) Comment on above: Performed By: #### C BC, ADIFF, ANEU, PRO, GFR, CMP ####[address] [address] Basophils/100 WBC Auto (Bld) 0.1 % Normal 0.0-2.5 [facility] ([place]) Comment on above: Performed By: #### C BC, ADIFF, ANEU, PRO, GFR, CMP ####[address] [address] Eosinophils 0.10 10 3/mcL Normal 0.00-0.65 [facility] ([place]) Comment on above: Performed By: #### C BC, ADIFF, ANEU, PRO, GFR, CMP ####[address] [address] Eosinophils/100 leukocytes 0.8 % Normal 0.0-6.0 [facility] ([place]) Comment on above: Performed By: #### C BC, ADIFF, ANEU, PRO, GFR, CMP ####[address] [address] Lymphocytes 2.80 10 3/mcL Normal 0.90-4.32 [facility] ([place]) Comment on above: Performed By: #### C BC, ADIFF, ANEU, PRO, GFR, CMP ####[address] [address] Lymphocytes/100 leukocytes 17.5 % Low 20.0-40.0 [facility] ([place]) Comment on above: Performed By: #### C BC, ADIFF, ANEU, PRO, GFR, CMP ####[address] [address] Monocytes 1.50 10 3/mcL High 0.09-1.40 [facility] ([place]) Comment on above: Performed By: #### C BC, ADIFF, ANEU, PRO, GFR, CMP ####[address] [address] Monocytes/100 leukocytes 9.5 % Normal 2.0-13.0 [facility] ([place]) Comment on above: Performed By: #### C BC, ADIFF, ANEU, PRO, GFR, CMP ####[address] [address] Neutrophils/100 WBC Auto (Bld) 72.1 % Normal 50.0-75.0 [facility] ([place]) Comment on above: Performed By: #### C BC, ADIFF, ANEU, PRO, GFR, CMP ####[address] [address] .GFRon 06-02-2017 eGFR (non-black) mL/min/{1.73_m2} Normal [facility] ([place]) Comment on above: Result Comment: GFR Population [...] C BC, ADIFF, ANEU, PRO, GFR, CMP ####[place] [address] .NEUABSon 06-02-2017 Neutrophils 11.70 10 3/mcL High 2.25-8.10 [facility] ([place]) Comment on above: Performed By: #### C BC, ADIFF, ANEU, PRO, GFR, CMP ####[place] [address] CBCon 06-02-2017 Erythrocyte distribution width Auto Ratio (RBC) 12.6 % Normal 11.5-15.5 [facility] ([place]) Comment on above: Performed By: #### C BC, ADIFF, ANEU, PRO, GFR, CMP ####[place] [address] Erythrocytes (RBC) 3.69 10 6/mcL Low 4.10-5.30 [facility] ([place]) Comment on above: Performed By: #### C BC, ADIFF, ANEU, PRO, GFR, CMP ####[place] [address] Hematocrit (HCT) 34.4 % Normal 34.0-46.0 [facility] ([place]) Comment on above: Performed By: #### C BC, ADIFF, ANEU, PRO, GFR, CMP ####[place] [address] Hemoglobin mass conc (Bld) 11.6 G/dL Low 12.0-16.0 [facility] ([place]) Comment on above: Performed By: #### C BC, ADIFF, ANEU, PRO, GFR, CMP ####[place] [address] MCH 31.5 pg Normal 27.0-33.0 [facility] ([place]) Comment on above: Performed By: #### C BC, ADIFF, ANEU, PRO, GFR, CMP ####[place] [address] MCHC mass conc (RBC) 33.9 G/dL Normal 32.0-36.0 [facility] ([place]) Comment on above: Performed By: #### C BC, ADIFF, ANEU, PRO, GFR, CMP ####[place] [address] MCV 93.0 fL Normal 80.0-99.0 [facility] ([place]) Comment on above: Performed By: #### C BC, ADIFF, ANEU, PRO, GFR, CMP ####[place] [address] Platelet mean volume (PMV) 7.0 fL Normal 6.6-10.5 [facility] ([place]) Comment on above: Performed By: #### C BC, ADIFF, ANEU, PRO, GFR, CMP ####[place] [address] Platelets 370 10 3/mcL Normal 150-450 [facility] ([place]) Comment on above: Performed By: #### C BC, ADIFF, ANEU, PRO, GFR, CMP ####[place] [address] WBC (Leukocytes) 16.30 10 3/mcL High 4.50-10.80 [facility] ([place]) Comment on above: Performed By: #### C BC, ADIFF, ANEU, PRO, GFR, CMP ####[place] [address] CMPon 06-02-2017 Albumin/Globulin Ratio 1.0 {ratio} Normal 0.9-1.6 [facility] ([place]) Comment on above: Performed By: #### C BC, ADIFF, ANEU, PRO, GFR, CMP ####[place] [address] Alk Phos 61 U/L Normal 38-126 [facility] ([place]) Comment on above: Performed By: #### C BC, ADIFF, ANEU, PRO, GFR, CMP ####[place] [address] Bili Total 0.7 mg/dL Normal 0.2-1.2 [facility] ([place]) Comment on above: Performed By: #### C BC, ADIFF, ANEU, PRO, GFR, CMP ####[place] [address] Globulin 3.2 G/dL Normal 1.5-3.8 [facility] ([place]) Comment on above: Performed By: #### C BC, ADIFF, ANEU, PRO, GFR, CMP ####[address] [address] Protein 6.3 G/dL Normal 6.0-8.5 [facility] ([place]) Comment on above: Performed By: #### C BC, ADIFF, ANEU, PRO, GFR, CMP ####[place] [address] Alanine aminotransferase (ALT) 26 U/L Normal 10-49 [facility] ([place]) Comment on above: Performed By: #### C BC, ADIFF, ANEU, PRO, GFR, CMP ####[place] [address] Albumin 3.1 G/dL Low 3.2-4.8 [facility] ([place]) Comment on above: Performed By: #### C BC, ADIFF, ANEU, PRO, GFR, CMP ####[place] [address] Aspartate aminotransferase (AST) 13 U/L Normal 8-34 [facility] ([place]) Comment on above: Performed By: #### C BC, ADIFF, ANEU, PRO, GFR, CMP ####[place] [address] BUN/Creatinine Ratio 13.6 ratio Normal 10.0-22.0 [facility] ([place]) Comment on above: Performed By: #### C BC, ADIFF, ANEU, PRO, GFR, CMP ####[place] [address] Calcium 8.0 mg/dL Low 8.4-10.1 [facility] ([place]) Comment on above: Performed By: #### C BC, ADIFF, ANEU, PRO, GFR, CMP ####[place] [address] Chloride 111 mmol/L High 98-110 [facility] ([place]) Comment on above: Performed By: #### C BC, ADIFF, ANEU, PRO, GFR, CMP ####[place] [address] CO2 22 mmol/L Normal 22-32 [facility] ([place]) Comment on above: Performed By: #### C BC, ADIFF, ANEU, PRO, GFR, CMP ####[place] [address] Creatinine 0.81 mg/dL Normal 0.50-1.20 [facility] ([place]) Comment on above: Performed By: #### C BC, ADIFF, ANEU, PRO, GFR, CMP ####[place] [address] Electrolyte Balance 10.0 mEq/L Normal 4.0-15.0 [facility] ([place]) Comment on above: Performed By: #### C BC, ADIFF, ANEU, PRO, GFR, CMP ####[place] [address] Glucose mass conc 101 mg/dL Normal 70-110 [facility] ([place]) Comment on above: Performed By: #### C BC, ADIFF, ANEU, PRO, GFR, CMP ####[place] [address] Potassium molar conc 3.9 mmol/L Normal 3.5-5.0 [facility] ([place]) Comment on above: Performed By: #### C BC, ADIFF, ANEU, PRO, GFR, CMP ####[place] [address] Sodium 143 mmol/L Normal 136-145 [facility] ([place]) Comment on above: Performed By: #### C BC, ADIFF, ANEU, PRO, GFR, CMP ####[place] [address] Urea nitrogen 11.0 mg/dL Normal 8.0-22.0 [facility] ([place]) Comment on above: Performed By: #### C BC, ADIFF, ANEU, PRO, GFR, CMP ####[place] [address] CT ABDOMEN/PELVIS W/CONTRAST on 06-02-2017 CT ABDOMEN/PELVIS [...] findings, as above Interpreted By: Vinay Cai [facility]reliminary Report By: Vinay Cai MDElectronically Signed By: Vinay Cai MD Dictated Date: 06/02/2017 12:22:41 PM Prelim Date: 06/02/2017 12:22:41 PM Sign Date: 06/02/2017 12:30:30 PM Normal [facility] ([place]) History and Physicalon 06-02 History and Physical Normal [facility]) Infectious Disease Consultat ionon 06-02-2017 Infectious Disease Consultation Normal [facility]) LACon 06-02-2017 Lactic Acid Lvl 1.4 mmol/L Normal 0.2-2.0 [facility]) Comment on above: Performed By: #### C BC, ADIFF, ANEU, PRO, GFR, CMP ####[place] [id number] [address] [place] [address] PROon 06-02-2017 INR Coag RelTime (PPP) 1.1 {INR} Normal Counts include 234 beds at the [facility]) Comment on above: Result Comment: [employer] (CHEST, 1992, 102:312S-[id number])recommended therapeutic range for oral anticoagulant therapy is:LOW RISK: Prophylaxis of venous thrombosis INR: 2.0-3.0 Treatment of pulmonary embolism 2.0-3.0 Prevention of systemic embolism 2.0-3.0HIGH RISK: Mechanical prosthetic valves 2.5-3.5 Performed By: #### C BC, ADIFF, ANEU, PRO, GFR, CMP ####[place] [address] [address] [place] [address] Prothrombin time (PT) Coag time (PPP) 12.9 s Normal 9.0-14.5 [facility]) Comment on above: Result Comment: Effe ctive 12/25/07, Protime results may be affected by some antibiotics (i.e. Ciprofloxacin, Azithromycin, Bactrim) which may potentiate the action of oral anticoagulants, with further increases in Protime/INR. Performed By: #### C BC, ADIFF, ANEU, PRO, GFR, CMP ####[address] [address] Depart Summaryon 05-26-2017 Depart Summary Normal [facility]) Discharge Summaryon 05-26-20 Discharge Summary Normal [facility]) [employer]ELOPER Rounding Noteon 05-26-20 17 [employer] DEVELOPER Rounding Note Normal [facility]) Inpatient Patient Summaryon 05-26-2017 Inpatient Patient Summary Normal [facility]) .Auto Diffon 05-25-2017 Basophils Auto #/vol (Bld) 0.00 10 3/mcL Normal 0.00-0.27 [facility] ([place] Comment on above: Performed By: #### C BC, ADIFF, ANEU, PRO, GFR, CMP ####[address] [address] Basophils/100 WBC Auto (Bld) 0.1 % Normal 0.0-2.5 [facility] ([place]) Comment on above: Performed By: #### C BC, ADIFF, ANEU, PRO, GFR, CMP ####[address] [address] Eosinophils 0.00 10 3/mcL Normal 0.00-0.65 [facility] ([place]) Comment on above: Performed By: #### C BC, ADIFF, ANEU, PRO, GFR, CMP ####[address] [address] Eosinophils/100 leukocytes 0.0 % Normal 0.0-6.0 [facility] ([place]) Comment on above: Performed By: #### C BC, ADIFF, ANEU, PRO, GFR, CMP ####[address] [address] Lymphocytes 1.60 10 3/mcL Normal 0.90-4.32 [facility] ([place]) Comment on above: Performed By: #### C BC, ADIFF, ANEU, PRO, GFR, CMP ####[address] [address] Lymphocytes/100 leukocytes 12.5 % Low 20.0-40.0 [facility] ([place]) Comment on above: Performed By: #### C BC, ADIFF, ANEU, PRO, GFR, CMP ####[address] [address] Monocytes 1.50 10 3/mcL High 0.09-1.40 [facility] ([place]) Comment on above: Performed By: #### C BC, ADIFF, ANEU, PRO, GFR, CMP ####[address] [address] Monocytes/100 leukocytes 11.6 % Normal 2.0-13.0 [facility] ([place]) Comment on above: Performed By: #### C BC, ADIFF, ANEU, PRO, GFR, CMP ####[address] [address] Neutrophils/100 WBC Auto (Bld) 75.8 % High 50.0-75.0 [facility] ([place]) Comment on above: Performed By: #### C BC, ADIFF, ANEU, PRO, GFR, CMP ####[address] [address] .GFRon 05-25-2017 eGFR (non-black) mL/min/{1.73_m2} Normal [facility] ([place]) Comment on above: Result Comment: GFR Population [...] C BC, ADIFF, ANEU, PRO, GFR, CMP ####[address] [address] eGFR (non-black) mL/min/{1.73_m2} Normal [facility] ([place] Comment on above: Result Comment: GFR Population [...] C BC, ADIFF, ANEU, PRO, GFR, CMP ####[place] [address] .NEUABSon 05-25-2017 Neutrophils 9.90 10 3/mcL High 2.25-8.10 [facility] ([place]) Comment on above: Performed By: #### C BC, ADIFF, ANEU, PRO, GFR, CMP ####[place] [address] BMPon 05-25-2017 BUN/Creatinine Ratio 10.0 ratio Normal 10.0-22.0 [facility] ([place]) Comment on above: Performed By: #### C BC, ADIFF, ANEU, PRO, GFR, CMP ####[place] [address] Creatinine 0.80 mg/dL Normal 0.50-1.20 [facility] ([place]) Comment on above: Performed By: #### C BC, ADIFF, ANEU, PRO, GFR, CMP ####[place] [address] Calcium 8.4 mg/dL Normal 8.4-10.1 [facility] ([place]) Comment on above: Performed By: #### C BC, ADIFF, ANEU, PRO, GFR, CMP ####[place] [address] Chloride 110 mmol/L Normal 98-110 [facility] ([place]) Comment on above: Performed By: #### C BC, ADIFF, ANEU, PRO, GFR, CMP ####[place] [address] CO2 25 mmol/L Normal 22-32 [facility] ([place]) Comment on above: Performed By: #### C BC, ADIFF, ANEU, PRO, GFR, CMP ####[place] [address] Electrolyte Balance 5.0 mEq/L Normal 4.0-15.0 [facility] ([place] Comment on above: Performed By: #### C BC, ADIFF, ANEU, PRO, GFR, CMP ####[place] [address] Glucose mass conc 135 mg/dL High 70-110 [facility] ([place]) Comment on above: Performed By: #### C BC, ADIFF, ANEU, PRO, GFR, CMP ####[place] [address] Potassium molar conc 4.2 mmol/L Normal 3.5-5.0 [facility] ([place]) Comment on above: Performed By: #### C BC, ADIFF, ANEU, PRO, GFR, CMP ####[place] [address] Sodium 140 mmol/L Normal 136-145 [facility] ([place]) Comment on above: Performed By: #### C BC, ADIFF, ANEU, PRO, GFR, CMP ####[place] [address] Urea nitrogen 8.0 mg/dL Normal 8.0-22.0 [facility] ([place]) Comment on above: Performed By: #### C BC, ADIFF, ANEU, PRO, GFR, CMP ####[place] [address] CBCon 05-25-2017 Erythrocyte distribution width Auto Ratio (RBC) 13.0 % Normal 11.5-15.5 [facility] ([place]) Comment on above: Performed By: #### C BC, ADIFF, ANEU, PRO, GFR, CMP ####[place] [address] Erythrocytes (RBC) 3.80 10 6/mcL Low 4.10-5.30 [facility] ([place]) Comment on above: Performed By: #### C BC, ADIFF, ANEU, PRO, GFR, CMP ####[place] [address] Hematocrit (HCT) 35.7 % Normal 34.0-46.0 [facility] ([place]) Comment on above: Performed By: #### C BC, ADIFF, ANEU, PRO, GFR, CMP ####[place] [address] Hemoglobin mass conc (Bld) 12.2 G/dL Normal 12.0-16.0 [facility] ([place]) Comment on above: Performed By: #### C BC, ADIFF, ANEU, PRO, GFR, CMP ####[place] [address] MCH 32.2 pg Normal 27.0-33.0 [facility] ([place]) Comment on above: Performed By: #### C BC, ADIFF, ANEU, PRO, GFR, CMP ####[place] [address] MCHC mass conc (RBC) 34.2 G/dL Normal 32.0-36.0 [facility] ([place]) Comment on above: Performed By: #### C BC, ADIFF, ANEU, PRO, GFR, CMP ####[place] [address] MCV 94.0 fL Normal 80.0-99.0 [facility] ([place]) Comment on above: Performed By: #### C BC, ADIFF, ANEU, PRO, GFR, CMP ####[place] [address] Platelet mean volume (PMV) 7.2 fL Normal 6.6-10.5 [facility] ([place]) Comment on above: Performed By: #### C BC, ADIFF, ANEU, PRO, GFR, CMP ####[place] [address] Platelets 253 10 3/mcL Normal 150-450 [facility] ([place]) Comment on above: Performed By: #### C BC, ADIFF, ANEU, PRO, GFR, CMP ####[place] [address] WBC (Leukocytes) 13.00 10 3/mcL High 4.50-10.80 [facility] ([place]) Comment on above: Performed By: #### C BC, ADIFF, ANEU, PRO, GFR, CMP ####[place] [address] Final Surgical Pathology Rep [facility] 05-25-2017 Final Surgical Pathology Report . Pathology ReportsAccession: Collected Date/Time: Received Date/Time: Pathologist:[id number] 05/24/2017 08:52 EST 05/24/2017 10:31 EST SENIOR, DO NEEMA Aguirre Final Surgical Pathology ReportDIAGNOSIS:A) LEFT OVARY WITH [...] cm in thickness. The underlying myometrium is [id number], and measures up to 2.1 cm in thickness. There are a few intramural nodules measuring up to 0.4 cm in greatest dimension. All show regan-white whorled cut surfaces. RS -2Block Summary1 -2 cervix and endomyometrium intramural nodules, anterior and posterior cohen respectivelyDictated by JASSON OMALLEY ([facility])MICROSCOPIC DESCRIPTION:Slides reviewed. Pathology ReportsAccession: Collected Date/Time: Received Date/Time: Pathologist:[id number] 05/24/2017 08:52 EST 05/24/2017 10:31 DO NEEMA CHOWDARY EElectronically Signed byPathology Report verified by [facility] HospitalElectronically signed by NEEMA LOREDO DOSign out Date: 05/25/2017 12:48Performing Lab: [address] ([place]) Comment on above: Performed By: #### C BC, ADIFF, ANEU, PRO, GFR, CMP ####[place] [address] [employer]KVIEW DEVELOPER Rounding Noteon 05-25-20 17 [employer] DEVELOPER Rounding Note Normal [facility] ([place]) Non-Electronic Component Processor Cytology Reporton Non-Electronic Component Processor Cytology Report . Pathology ReportsAccession: Collected Date/Time: Received Date/Time: Pathologist:[id number] 05/24/2017 08:47 EST 05/24/2017 12:21 EST MD RADHA TRENT Non-Electronic Component Processor Cytology ReportCLINICAL INFORMATION:PELVIC MASSDIAGNOSIS:NEGATIVE FOR MALIGNANCYCOMMENT:SCANT CELLULARITYSPECIMEN:PELVIC WASHINGGROSS DESCRIPTION:# of Blocks: 1# of Monolayers: 1Volume (ml) 20 Color: FRESH BLOODY FLUIDElectronically Signed byPathology report verified by [facility] Healthcreened by: TAMMY RMElectronically signed by RADHA TRENT MDSign-Out Date: 05/25/2017 08:54Performing Lab: [address] [address] [facility] Normal [facility] ([place]) Comment on above: Performed By: #### C BC, ADIFF, ANEU, PRO, GFR, CMP ####[address] [address] Operative Noteon 05-24-2017 Operative Note Normal [facility] ([place]) Procedure Noteon 05-24-2017 Procedure Note Normal [facility] ([place]) History and Physical Pre-Opo n 05-23-2017 History and Physical Pre-Op Normal [facility] ([place]) Main Pretest Recordon 2016 Main Pretest Record Normal [facility] ([place]) .Auto Diffon 05-17-2017 Basophils Auto #/vol (Bld) 0.00 10 3/mcL Normal 0.00-0.27 [facility] ([place]) Comment on above: Performed By: #### C BC, ADIFF, ANEU, PRO, GFR, CMP ####[place] [address] Basophils/100 WBC Auto (Bld) 0.7 % Normal 0.0-2.5 [facility] ([place]) Comment on above: Performed By: #### C BC, ADIFF, ANEU, PRO, GFR, CMP ####[address] [address] Eosinophils 0.10 10 3/mcL Normal 0.00-0.65 [facility] ([place]) Comment on above: Performed By: #### C BC, ADIFF, ANEU, PRO, GFR, CMP ####[place] [address] Eosinophils/100 leukocytes 2.5 % Normal 0.0-6.0 [facility] ([place]) Comment on above: Performed By: #### C BC, ADIFF, ANEU, PRO, GFR, CMP ####[address] [address] Lymphocytes 2.40 10 3/mcL Normal 0.90-4.32 [facility] ([place]) Comment on above: Performed By: #### C BC, ADIFF, ANEU, PRO, GFR, CMP ####[address] [address] Lymphocytes/100 leukocytes 43.3 % High 20.0-40.0 [facility] ([place]) Comment on above: Performed By: #### C BC, ADIFF, ANEU, PRO, GFR, CMP ####[address] [address] Monocytes 0.50 10 3/mcL Normal 0.09-1.40 [facility] ([place]) Comment on above: Performed By: #### C BC, ADIFF, ANEU, PRO, GFR, CMP ####[address] [address] Monocytes/100 leukocytes 9.4 % Normal 2.0-13.0 [facility] ([place]) Comment on above: Performed By: #### C BC, ADIFF, ANEU, PRO, GFR, CMP ####[address] [address] Neutrophils/100 WBC Auto (Bld) 44.1 % Low 50.0-75.0 [facility] ([place]) Comment on above: Performed By: #### C BC, ADIFF, ANEU, PRO, GFR, CMP ####[address] [address] .GFRon 05-17-2017 eGFR (non-black) mL/min/{1.73_m2} Normal [facility] ([place]) Comment on above: Result Comment: GFR Population [...] C BC, ADIFF, ANEU, PRO, GFR, CMP ####[place] [address] .NEUABSon 05-17-2017 Neutrophils 2.40 10 3/mcL Normal 2.25-8.10 [facility] ([place]) Comment on above: Performed By: #### C BC, ADIFF, ANEU, PRO, GFR, CMP ####[place] [address] CBCon 05-17-2017 Erythrocyte distribution width Auto Ratio (RBC) 12.8 % Normal 11.5-15.5 [facility] ([place]) Comment on above: Performed By: #### C BC, ADIFF, ANEU, PRO, GFR, CMP ####[place] [address] Erythrocytes (RBC) 3.96 10 6/mcL Low 4.10-5.30 [facility] ([place]) Comment on above: Performed By: #### C BC, ADIFF, ANEU, PRO, GFR, CMP ####[place] [address] Hematocrit (HCT) 37.3 % Normal 34.0-46.0 [facility] ([place]) Comment on above: Performed By: #### C BC, ADIFF, ANEU, PRO, GFR, CMP ####[place] [address] Hemoglobin mass conc (Bld) 13.1 G/dL Normal 12.0-16.0 [facility] ([place] Comment on above: Performed By: #### C BC, ADIFF, ANEU, PRO, GFR, CMP ####[place] [address] MCH 33.0 pg Normal 27.0-33.0 [facility] ([place] Comment on above: Performed By: #### C BC, ADIFF, ANEU, PRO, GFR, CMP ####[place] [address] MCHC mass conc (RBC) 35.1 G/dL Normal 32.0-36.0 [facility] ([place]) Comment on above: Performed By: #### C BC, ADIFF, ANEU, PRO, GFR, CMP ####[place] [address] MCV 94.2 fL Normal 80.0-99.0 [facility] ([place]) Comment on above: Performed By: #### C BC, ADIFF, ANEU, PRO, GFR, CMP ####[place] [address] Platelet mean volume (PMV) 7.4 fL Normal 6.6-10.5 [facility] ([place] Comment on above: Performed By: #### C BC, ADIFF, ANEU, PRO, GFR, CMP ####[place] [address] Platelets 223 10 3/mcL Normal 150-450 [facility] ([place]) Comment on above: Performed By: #### C BC, ADIFF, ANEU, PRO, GFR, CMP ####[place] [address] WBC (Leukocytes) 5.50 10 3/mcL Normal 4.50-10.80 [facility] ([place]) Comment on above: Performed By: #### C BC, ADIFF, ANEU, PRO, GFR, CMP ####[place] [address] CMPon 05-17-2017 Albumin/Globulin Ratio 1.3 {ratio} Normal 0.9-1.6 A [facility] ([place]) Comment on above: Performed By: #### C BC, ADIFF, ANEU, PRO, GFR, CMP ####[place] [address] Alk Phos 51 U/L Normal 38-126 [facility] ([place]) Comment on above: Performed By: #### C BC, ADIFF, ANEU, PRO, GFR, CMP ####[place] [address] Bili Total 0.6 mg/dL Normal 0.2-1.2 [facility] ([place] Comment on above: Performed By: #### C BC, ADIFF, ANEU, PRO, GFR, CMP ####[place] [address] Globulin 2.9 G/dL Normal 1.5-3.8 [facility] ([place]) Comment on above: Performed By: #### C BC, ADIFF, ANEU, PRO, GFR, CMP ####[place] [address] Protein 6.7 G/dL Normal 6.0-8.5 [facility] ([place]) Comment on above: Performed By: #### C BC, ADIFF, ANEU, PRO, GFR, CMP ####[place] [address] Alanine aminotransferase (ALT) 25 U/L Normal 10-49 [facility] ([place] Comment on above: Performed By: #### C BC, ADIFF, ANEU, PRO, GFR, CMP ####[place] [address] Albumin 3.8 G/dL Normal 3.2-4.8 [facility] ([place] Comment on above: Performed By: #### C BC, ADIFF, ANEU, PRO, GFR, CMP ####[place] [address] Aspartate aminotransferase (AST) 15 U/L Normal 8-34 [facility] ([place] Comment on above: Performed By: #### C BC, ADIFF, ANEU, PRO, GFR, CMP ####[place] [address] BUN/Creatinine Ratio 12.5 ratio Normal 10.0-22.0 [facility] ([place]) Comment on above: Performed By: #### C BC, ADIFF, ANEU, PRO, GFR, CMP ####[place] [address] Calcium 8.6 mg/dL Normal 8.4-10.1 [facility] ([place]) Comment on above: Performed By: #### C BC, ADIFF, ANEU, PRO, GFR, CMP ####[place] [address] Chloride 114 mmol/L High 98-110 [facility] ([place] Comment on above: Performed By: #### C BC, ADIFF, ANEU, PRO, GFR, CMP ####[place] [address] CO2 22 mmol/L Normal 22-32 [facility] ([place] Comment on above: Performed By: #### C BC, ADIFF, ANEU, PRO, GFR, CMP ####[place] [address] Creatinine 0.96 mg/dL Normal 0.50-1.20 [facility] ([place]) Comment on above: Performed By: #### C BC, ADIFF, ANEU, PRO, GFR, CMP ####[place] [address] Electrolyte Balance 7.0 mEq/L Normal 4.0-15.0 [facility] ([place]) Comment on above: Performed By: #### C BC, ADIFF, ANEU, PRO, GFR, CMP ####[place] [address] Glucose mass conc 88 mg/dL Normal 70-110 [facility] ([place]) Comment on above: Performed By: #### C BC, ADIFF, ANEU, PRO, GFR, CMP ####[place] [address] Potassium molar conc 3.9 mmol/L Normal 3.5-5.0 [facility] ([place]) Comment on above: Performed By: #### C BC, ADIFF, ANEU, PRO, GFR, CMP ####[place] [address] Sodium 143 mmol/L Normal 136-145 [facility] ([place]) Comment on above: Performed By: #### C BC, ADIFF, ANEU, PRO, GFR, CMP ####[place] [address] Urea nitrogen 12.0 mg/dL Normal 8.0-22.0 [facility] ([place]) Comment on above: Performed By: #### C BC, ADIFF, ANEU, PRO, GFR, CMP ####[place] [address] PROon 05-17-2017 INR Coag RelTime (PPP) 0.9 {INR} Normal [facility] ([place]) Comment on above: Result Comment: The [employer] (CHEST, 1992, 102:312S-25S)recommended therapeutic range for oral anticoagulant therapy is:LOW RISK: Prophylaxis of venous thrombosis INR: 2.0-3.0 Treatment of pulmonary embolism 2.0-3.0 Prevention of systemic embolism 2.0-3.0HIGH RISK: Mechanical prosthetic valves 2.5-3.5 Performed By: #### C BC, ADIFF, ANEU, PRO, GFR, CMP ####[place] [address] Prothrombin time (PT) Coag time (PPP) 10.9 s Normal 9.0-14.5 [facility] ([place]) Comment on above: Result Comment: Effe ctive 12/25/07, Protime results may be affected by some antibiotics (i.e. Ciprofloxacin, Azithromycin, Bactrim) which may potentiate the action of oral anticoagulants, with further increases in Protime/INR. Performed By: #### C BC, ADIFF, ANEU, PRO, GFR, CMP ####[place] [address] [facility] 05-17-2017 ABO/Rh Interp Positive Invalid Interpretation Code [facility] ([place]) Comment on above: Performed By: #### A BRI ANTIS ####[place] [address] [facility]2017 Antibody Screen Tango Negative Normal [facility] ([place]) Comment on above: Performed By: #### A BRI ANTIS ####[place] [address] Vital Signs Date Time Vital Sign Value Performing Clinician Stephani saunders 11-17-2024 22:32-0400 Body temperature 98.7 [degF] Dr. Denise Cheng MD Work Phone: [facility] 11-17-2024 22:32-0400 Diastolic blood pressure 72 mm[Hg] Dr. Denise Cheng MD Work Phone: [facility] 11-17-2024 22:32-0400 Heart rate 87 /min Dr. Denise Cheng MD Work Phone: [facility] 11-17-2024 22:32-0400 Respiratory rate 20 /min Dr. Denise Cheng MD Work Phone: 5(053)991-755967 [place] [address] 11-17-2024 22:32-0400 SaO2% (BldA) [Mass fraction] 90 % Dr. Denise Cheng MD Work Phone: 4(035)820-687388 [place] [address] 11-17-2024 22:32-0400 Systolic blood pressure 104 mm[Hg] Dr. Denise Cheng MD Work Phone: 7(729)932-780688 [place] [address] 11-17-2024 16:43-0400 Body height 175.[address] Denise Cheng MD Work Phone: 1(639)475-775588 [place] [address] 11-17-2024 16:43-0400 Body mass index (BMI) [Ratio] 25.3 kg/m2 Dr. Denise Cheng MD Work Phone: 5(496)388-887688 [place] [address] 11-17-2024 16:43-0400 Body weight 77.[address] Denise Cheng MD Work Phone: 3(509)914-891188 [place] [address] 08-10-2024 09:37-0500 Body temperature 99.1 [degF] Dr. Denise Cheng MD Work Phone: 4(945)430-631588 [place] [address] 08-10-2024 09:37-0500 Diastolic blood pressure 60 mm[Hg] Dr. Denise Cheng MD Work Phone: 2(804)178-454488 [place] [address] 08-10-2024 09:37-0500 Heart rate 85 /min Dr. Denise Cheng MD Work Phone: 6(951)905-624588 [place] [address] 08-10-2024 09:37-0500 Respiratory rate 16 /min Dr. Denise Cheng MD Work Phone: 1(796)809-876988 [place] [address] 08-10-2024 09:37-0500 SaO2% (BldA) [Mass fraction] 97 % Dr. Denise Cheng MD Work Phone: 0(997)571-772288 [place] [address] 08-10-2024 09:37-0500 Systolic blood pressure 118 mm[Hg] Dr. Denise Cheng MD Work Phone: 8(453)192-952288 [place] [address] 07-28-2024 12:43-0500 Body height 175.[address] Denise Cheng MD Work Phone: 8(368)745-442288 [place] [address] 07-28-2024 12:43-0500 Body temperature 98.1 [degF] Dr. Denise Cheng MD Work Phone: 8(036)938-321288 [place] [address] 07-28-2024 12:43-0500 Diastolic blood pressure 68 mm[Hg] Dr. Denise Cheng MD Work Phone: 0(204)849-512188 [place] [address] 07-28-2024 12:43-0500 Heart rate 96 /min Dr. Denise Cheng MD Work Phone: 1(047)689-450988 [place] [address] 07-28-2024 12:43-0500 Respiratory rate 12 /min Dr. Denise Cheng MD Work Phone: 7(269)276-161188 [place] [address] 07-28-2024 12:43-0500 SaO2% (BldA) [Mass fraction] 98 % Dr. Denise Cheng MD Work Phone: 7(059)784-013388 [place] [address] 07-28-2024 12:43-0500 Systolic blood pressure 116 mm[Hg] Dr. Denise Cheng MD Work Phone: 9(425)950-863388 [place] [address] 04-03-2023 07:34-0400 SaO2% (BldA) [Mass fraction] 95 % Dr. Denise Cheng Work Phone: 8(846)808-503088 [place] [address] 04-03-2023 07:23-0400 Body height 175.[address] Denise Cheng Work Phone: 0(485)635-977788 [place] [address] 04-03-2023 07:23-0400 Body mass index (BMI) [Ratio] 29.7 kg/m2 Dr. Denise Cheng Work Phone: 5(318)568-389688 [place] [address] 04-03-2023 07:23-0400 Body temperature 98.3 [degF] Dr. Denise Cheng Work Phone: 1(723)655-313788 [place] [address] 04-03-2023 07:23-0400 Body weight 91.[address] Denise Cheng Work Phone: 6(891)597-972388 [place] [address] 04-03-2023 07:23-0400 Diastolic blood pressure 81 mm[Hg] Dr. Denise Cheng Work Phone: [facility] 04-03-2023 07:23-0400 Heart rate 96 /min Dr. Denise Cheng Work Phone: [facility] 04-03-2023 07:23-0400 Respiratory rate 16 /min Dr. Denise Cheng Work Phone: [facility] 04-03-2023 07:23-0400 Systolic blood pressure 120 mm[Hg] Dr. Denise Cheng Work Phone: [facility] 01-20-2022 14:04-0400 Body height 175.[address] Denise Cheng Work Phone: [facility] Work Phone: 01-20-2022 14:02-0400 Body mass index (BMI) [Ratio] 28.7 kg/m2 Dr. Denise Cheng Work Phone: [facility] Work Phone: 01-20-2022 14:02-0400 Body temperature 97.6 [degF] Dr. Denise Cheng Work Phone: [facility] Work Phone: 01-20-2022 14:02-0400 Body weight 88.[address] Denise Cheng Work Phone: [facility] Work Phone: 01-20-2022 14:02-0400 Diastolic blood pressure 76 mm[Hg] Dr. Denise Cheng Work Phone: [facility] Work Phone: 01-20-2022 14:02-0400 Heart rate 91 /min Dr. Denise Cheng Work Phone: [facility] Work Phone: 01-20-2022 14:02-0400 Respiratory rate 16 /min Dr. Denise Cheng Work Phone: [facility] Work Phone: 01-20-2022 14:02-0400 SaO2% (BldA) [Mass fraction] 94 % Dr. Denise Cheng Work Phone: [facility] Work Phone: 01-20-2022 14:02-0400 Systolic blood pressure 121 mm[Hg] Dr. Denise Cheng Work Phone: [facility] Work Phone: 10-21-2021 10:55-0400 Body height 175.[address] Denise Cheng Work Phone: [facility] Work Phone: 10-21-2021 10:55-0400 Body mass index (BMI) [Ratio] 29 kg/m2 Dr. Denise Cheng Work Phone: [facility] Work Phone: 10-21-2021 10:55-0400 Body temperature 97.5 [degF] Dr. Denise Cheng Work Phone: [facility] Work Phone: 10-21-2021 10:55-0400 Body weight 89.[address] Denise Cheng Work Phone: [facility] Work Phone: 10-21-2021 10:55-0400 Diastolic blood pressure 89 mm[Hg] Dr. Denise Cheng Work Phone: [facility] Work Phone: 10-21-2021 10:55-0400 Heart rate 79 /min Dr. Denise Cheng Work Phone: [facility] Work Phone: 10-21-2021 10:55-0400 Respiratory rate 16 /min Dr. Denise Cheng Work Phone: [facility] Work Phone: 10-21-2021 10:55-0400 SaO2% (BldA) [Mass fraction] 98 % Dr. Denise Cheng Work Phone: [facility] Work Phone: 10-21-2021 10:55-0400 Systolic blood pressure 133 mm[Hg] Dr. Denise Cheng Work Phone: [facility] Work Phone: 10-06-2021 14:09-0400 Body mass index (BMI) [Ratio] 29.5 kg/m2 Dr. Denise Cheng Work Phone: [facility] Work Phone: 10-06-2021 14:09-0400 Body temperature 98.4 [degF] Dr. Denise Cheng Work Phone: [facility] Work Phone: 10-06-2021 14:09-0400 Body weight 90.[address] Denise Cheng Work Phone: [facility] Work Phone: 10-06-2021 14:09-0400 Diastolic blood pressure 85 mm[Hg] Dr. Denise Cheng Work Phone: [facility] Work Phone: 10-06-2021 14:09-0400 Heart rate 102 /min Dr. Denise Cheng Work Phone: [facility] Work Phone: 10-06-2021 14:09-0400 Respiratory rate 16 /min Dr. Denise Cheng Work Phone: [facility] Work Phone: 10-06-2021 14:09-0400 SaO2% (BldA) [Mass fraction] 97 % Dr. Denise Cheng Work Phone: [facility] Work Phone: 10-06-2021 14:09-0400 Systolic blood pressure 123 mm[Hg] Dr. Denise Cheng Work Phone: [facility] Work Phone: Encounters Encounter Date Encounter Type Care Provider Facility Start: 11-19-2024 ambulatory Denise Cheng Facility:[facility] Start: 11-17-2024 ambulatory Denise [place]derwood Facility:[facility] Start: 11-17-2024 Evaluation and manag ement of inpatient Dr. Esther Gaspar MD -Progressive Care Unit Work Phone: Start: 10-31-2024 End: 10-31-[address] Denise Cheng MD Work Phone: [facility] Work Phone: Start: 10-31-2024 End: 10-31-[address] Denise Cheng MD -[facility] Work Phone: Start: 10-31-2024 End: 10-31-2024 ambulatory Denise Cheng Facility:[facility] Start: 10-07-2024 Encounter for other preprocedural examination Saul Bazan [facility] Start: 10-01-2024 End: 10-01-2024 Non-patient / Non-visit Dr. Giancarlo Hammer MD -[facility] Work Phone: Start: 10-01-2024 End: 10-01-[address] Denise Cheng MD Work Phone: [facility] Work Phone: Start: 10-01-2024 End: 10-01-[address] Saul Bazan DO -Pulmonary Services/Neurology Work Phone: Start: 10-01-2024 End: 10-01-2024 ambulatory Denise Cheng Facility:[facility] Start: 09-03-2024 End: 09-03-[address] Denise Cheng MD Work Phone: [facility] Work Phone: Start: 09-03-2024 End: 09-03-[address] Denise Cheng MD -Outpatient Breast Imaging Work Phone: Start: 09-03-2024 End: 09-03-2024 ambulatory Denise Cheng Facility:[facility] Start: 08-10-2024 End: 08-10-2024 Patient encounter procedure Farida Denis [employer] Work Phone: Start: 08-10-2024 End: 08-10-2024 ambulatory Denise Cheng Facility:[facility] Start: 07-29-2024 End: 07-29-2024 Patient encounter procedure Adilson Plasencia Tasha [facility] -Laboratory, Specimen Work Phone: Start: 07-28-2024 End: 07-28-2024 Patient encounter procedure Adilson Plasencia Tasha [employer] -[facility] Work Phone: Start: 07-28-2024 End: 07-29-2024 ambulatory Denise Cheng Facility:[facility] Start: 04-15-2024 End: 04-15-2024 ambulatory Denise Cheng Facility:[facility] Start: 01-25-2024 End: 01-25-2024 ambulatory Denise Cheng Facility:[facility] Start: 11-29-2023 End: 11-29-2023 ambulatory Denise Cheng Facility:[facility] Start: 08-15-2023 End: 08-15-2023 ambulatory [facility] Work Phone: Start: 08-15-2023 End: 08-15-2023 Patient encounter procedure [facility]-Outpatient Breast Imaging Work Phone: Start: 06-20-2023 End: 06-20-2023 ambulatory [facility] Work Phone: Start: 06-20-2023 End: 06-20-2023 Discharged Recurring [facility]-Physical Therapy Work Phone: Start: 06-20-2023 Registered Recurring [facility] Therapy Work Phone: Start: 06-14-[address] Denise Cheng Work Phone: [facility]-Physical Therapy Work Phone: Start: 06-09-2023 End: 06-09-[address] Denise Cheng Work Phone: [facility] Work Phone: Start: 06-09-2023 End: 06-09-[address] Denise Cheng Work Phone: [facility]-Laboratory, [place] Work Phone: Start: 05-16-2023 End: 05-16-[address] Denise Cheng Work Phone: [facility]-Radiology, [place] Work Phone: Start: 04-03-2023 End: 04-03-[address] Denise Cheng Work Phone: [facility] Work Phone: Start: 02-01-2023 End: 02-01-2023 ambulatory [facility] Facility:[facility] Start: 02-01-2023 End: 02-01-2023 Subsequent hospital visit by physician [facility] Work Phone: Radiology Comment on above: Plantar fascial fibr omatosis [M72.2] Start: 01-12-2023 End: 01-12-2023 ambulatory [facility] Work Phone: Start: 01-12-2023 End: 01-12-2023 Patient encounter procedure [facility]-Ultrasound, [facility] Work Phone: Start: 11-12-2022 End: 11-12-2022 ambulatory [facility] Work Phone: Start: 11-12-2022 End: 11-12-2022 Patient encounter procedure [facility]-MRI - [facility] Start: 11-09-2022 End: 11-09-2022 ambulatory [facility] Work Phone: Start: 11-09-2022 End: 11-09-2022 Patient encounter procedure [facility]-Laboratory, [place] Start: 10-27-2022 End: 10-27-2022 Discharged Recurring [facility]-Physical Therapy Start: 09-22-2022 End: 09-22-2022 ambulatory [facility] Work Phone: Start: 09-22-2022 End: 04-13-2023 [facility] Start: 03-24-2022 End: 03-24-[address] Denise Cheng Work Phone: [facility] Work Phone: Start: 03-24-2022 End: 03-24-[address] Denise Cheng Work Phone: [facility]-Outpatient Breast Imaging Start: 01-20-2022 End: 01-20-[address] Denise Cheng Work Phone: [facility] Start: 01-13-2022 End: 01-13-[address] [facility] Start: 10-21-2021 End: 10-21-[address] Denise Cheng Work Phone: [facility] Start: 10-19-2021 End: 10-19-[address] Denise Cheng Work Phone: [facility]-Cat Scan, [facility] Start: 10-06-[address] Denise Cheng Work Phone: [facility] Start: 10-06-2021 End: 10-06-[address] Denise Cheng Work Phone: [facility] Start: 09-09-2021 End: 09-09-[address] Denise Cheng Work Phone: [facility]-Ultrasound, [facility] Start: 08-03-2021 End: 08-03-[address] Denise Cheng Work Phone: [facility], [facility] Start: 08-02-2021 End: 08-02-[address] Denise Cheng Work Phone: [facility] Start: 07-26-2021 End: 07-26-[address] Denise Cheng Work Phone: [facility] Start: 06-02-2017 End: 06-05-2017 Evaluation and management of inpatient LAMAR CARMEN Facility:[facility] Start: 05-24-2017 End: 05-26-2017 Evaluation and management of inpatient LAMAR CARMEN Facility:[facility] Start: 05-17-2017 End: 05-18-2017 Ambulatory LAMAR CARMEN Facility:[facility] Procedures Date Procedure Procedure Detail Performing Clinician Start: 11-17-2024 CT angiography of ch est with contrast Dr. Denise Cheng MD Work Phone: Start: 11-17-2024 X-ray of chest, PA a nd lateral views Dr. Denise Cheng MD Work Phone: Start: 11-17-2024 D-dimer assay, quantitative Dr. Denise Cheng MD Work Phone: Comment on above: NORMAL D-Dimer level (<0.50) indicates no DVT or PE. Start: 11-17-[address] Denise Cheng MD Work Phone: Start: 10-31-[address] Martha Cheng MD Work Phone: Comment on above: Performed at: [address] [id number] Director: Dominick De La Rosa PhD, Phone: [phone] Start: 09-03-2024 Screening mammography Gale Cheng MD [...] Detail Author Start: 01-20-2030 Urine microalbumin profile DTaP,Tdap,Td Vaccine (2 - Td or Tdap) [facility] Start: 11-17-2024 Electrocardiographic procedure [facility] Start: 11-17-2024 Verification routine [facility] Start: 11-17-2024 Admission procedure [facility] Start: 11-17-2024 Hospital admission, emergency, from emergency room, medical nature [facility] Start: 11-17-2024 [facility] Start: 02-10-2023 Covid-19 Vaccine ( season) Covid-19 Vaccine ( season) [facility] Start: 02-10-2023 Influenza vaccination Influenza Vaccine (#1) [facility] Start: 06-12-2022 Depression Assessment Depression Assessment [facility] Start: 10-04-2019 Colonoscopy Colonoscopy [facility] Start: 10-04-2019 Colorectal Cancer Screening Colorectal Cancer Screening [facility] Start: 10-31-2015 Shingrix Vaccine (1 of 2) Shingrix Vaccine (1 of 2) [facility] Start: 2010 Cologuard (FIT-DNA) Cologuard (FIT-DNA) [facility] Start: [address] Colonography [facility] Start: 2010 Diabetes Screening Diabetes Screening [facility] Start: 2010 Fecal Occult Blood Fecal Occult Blood [facility] Start: 2010 Lipid 1996 panel - Serum or Plasma Lipid Screening [facility] Start: 2010 Sigmoidoscopy Sigmoidoscopy [facility] Start: 04-20-2010 HPV Testing HPV Testing [facility] Start: 04-20-2010 Pap Testing Pap Testing [facility] Start: 2005 Mammography Mammogram Screening [facility] Start: 10-31-1983 Hepatitis C Screening Hepatitis C Screening [facility] Start: 10-31-1983 HIV Screening HIV Screening [facility] Start: 1965 Hepatitis B Vaccine (1 of 3 - 3-dose series) Hepatitis B Vaccine (1 of 3 - 3-dose series) [facility] Amphetamines [Presen ce] in Urine by Screen method >1000 ng/mL [facility] Benzodiazepine measu rement, urine [facility] C reactive protein [Mass/volume] in Serum or Plasma [facility] Cocaine measurement, urine [facility] Erythrocyte sedimentation rate [facility] fentaNYL [Presence] in Urine by Screen method [facility] Magnesium measurement [facility] Methadone measurement, urine [facility] Patient referral [facility] Work Phone: Phencyclidine [Prese nce] in Urine [facility] Urine cannabinoid measurement [facility] Urine opiate measurement [facility] Immunizations Immunization Date Immunization Notes Care Provider Shantanu ho 03-08-2022 influenza virus vaccine, unspecified formulation [employer] Work Phone: [facility] 01-21-2020 tetanus toxoid, redu rima diphtheria toxoid, and acellular pertussis vaccine, adsorbed [employer] Work Phone: [facility] Work Phone: Payers Date Payer Category Payer Self-pay [id number] 2022 Unknown [employer] SS PPO [id number] 2022-Present [phone] [facility] [id number] [place] [address] PPO [id number] 2017 Unknown [id number] 2017 Unknown [id number] 2013 Unknown [id number] Unknown [id number] Unknown [id number] Unknown [id number] Unknown [id number] Unknown [id number] Unknown [id number] Unknown [id number] Unknown [id number] Unknown [id number] Unknown [id number] Unknown [id number] Unknown [id number] Unknown [id number] Unknown [id number] Unknown [id number] Unknown [id number] Social History Date Type Detail Facility Start: 10-06-2021 End: 04-03-2023 Tobacco smoking status FLIS Unknown if ever smoked [facility] Start: 12-05-2019 Non-smoker [facility] Start: 1965 Sex Assigned At Female W [facility] Start: 07-25-2017 End: 11-17-2024 Tobacco smoking status FLIS Never smoked tobacco [facility] Start: 07-25-2017 Tobacco use and exposure Smokeless tobacco non-user [facility] Start: 02-01-2023 Alcohol intake Current drinke r of alcohol (finding) [facility] Start: 02-01-2023 History of Social function [facility] Start: 02-01-2023 Tobacco use panel [facility] National Score (1-100), lower number is lower risk 65 [facility] Start: 1965 Sex Assigned At Not on file [facility] [place] Start: 09-09-2024 End: 10-04-2024 Sex Female (finding) [facility] Goals Date Patient Goal Desired Activity /State Mental Status Date Assessment Result Facility 11-17-2024 Cognitive function Voice/Name [facility] Work Phone: Clinical Notes 02-01-2023 to 11-17-2024 Note Date & Type Note Facility 11-17-2024 History and physi syed note [facility] 11-17-2024 Discharge summary [facility] 11-17-2024 Radiology Diagnostic study note [facility] Imaging Services [address] [place], [place] [address] CTA Chest W/WO Contrast MR#: [id number] Acct: [id number] Name: YUMIKO SINGH Rep #: [id number] : 1965 F 59 From: Ashely Mulligan MD PCP: Dr. Denise Cheng MD Status: REG ER Study:CTA Chest W/WO Contrast Date of Exam: 11/17/24 Exam# [id number] Ordering Dr: Eva Felix DO PROCEDURE: CTA CHEST W/WO CONTRAST 11/17/2024 REASON FOR EXAM: LEFT SIDED PLEURITIC CHEST PAIN TECHNIQUE: CTA axial imaging of the chest with intravenous contrast. Coronal and Sagittal reconstruction series were provided. 3D, 3D post processing, 3D reconstructions, Maximum intensity projection (MIPs) Volume rendering and Shaded surface rendering was provided. PATIENT PREPARATION: Per protocol CONTRAST: Isovue 370 VOLUME: 100mL One or more dose reduction techniques were used (e.g., Automated exposure control, adjustment of the mA and/or kV according to patient size, use of iterative reconstruction technique). RADIATION DOSE SUMMARY: CTDlvol: 24 mGy DLP: 500 mGycm COMPARISON: CT chest, abdomen and pelvis 10/19/2021. FINDINGS: Hardware: None. Lymph nodes: No axillary, mediastinal or hilar lymphadenopathy. Heart: The heart is normal in size without pericardial effusion. There is ectasia of the main pulmonary artery measuring 3.7 cm. No significant coronary artery calcifications. Pulmonary Vessels: No central filling defects in the segmental or subsegmental pulmonary arteries. Lungs and Airways: The central airways are patent. Bibasilar atelectasis and trace left pleural effusion. Mildly enlarged distal pulmonary arteries, greatest within the bibasilar lungs. No pneumothorax. Upper Abdomen: Prominent periportal nodes. Bones: Mild thoracic spondylosis. CT/CTA Chest W/WO Contrast IMPRESSION: 1. No acute pulmonary embolism. 2. Ectasia of the main pulmonary artery and enlargement of the distal pulmonary arteries, which can be seen with pulmonary hypertension. 3. Trace left pleural effusion. Reading Location: [id number] CC: Dr. Natalia Felix DO; Dr. Denise Cheng MD ~ Crm Technical Lead: Signed [facility] 11-17-2024 Radiology Diagnostic study note [facility] Imaging Services [address], [place] [id number] Chest PA and Lateral MR#: [id number] Acct: [id number] Name: YUMIKO SINGH Rep #: [id number] : 1965 F 59 From: Ashely Mulligan MD PCP: Dr. Denise Cheng MD Status: REG ER Study:Chest PA and Lateral Date of Exam: 11/17/24 Exam# [id number] Ordering Dr: Eva Felix DO PROCEDURE: CHEST PA AND LATERAL [...] Lateral IMPRESSION: NO ACUTE FINDINGS. Reading Location: [id number] CC: Dr. Natalia Felix DO; Dr. Denise Cheng MD ~ Crm Technical Lead: Signed [facility] 11-17-2024 Discharge summary Note Date/Time November 17, 2024 10:24pm [facility] Medical Records Department [address] [place] [address] Emergency Department Summary 11/17/24 MR#: [id number] Acct: [id number] Name: YUMIKO SINGH Rep #:[id number] : 1965 59 From: Natalia Hardy PCP: Dr. Denise Cheng MD Status:REG ER Location: ED HPI History of Present Illness Chief Complaint: Chest Pain Informant: patient Narrative Narrative: Patient is a 59-year-old female presenting with sudden onset of chest pain that started approximate 2 hours prior to arrival. She has this pain underneath her left rib/breast. Is up to her neck into her trapezius area. She states she wasriding in the car when it started. She never any like this before. Pain is worse with movement as well as deep breathing. Denies any swelling of her legs. Did not take any for her pain prior to arrival. Denies any cardiac or pulmonary history. Denies history of DVT. Notes this year she has had an unintentional 20 pound weight loss but denies any abdominal pain. She notes that her primary care doctor did recently order her an outpatient ultrasound which she thinks was to look at her gallbladder but she has not had that done yet. She denies any change in her pain with eating. She denies any urinary symptoms. No associated nausea or vomiting. Came in for further evaluation. She states that she is supposed to have meniscus repair surgery on her knee thiscoming Monday. [facility] Medical History (Updated 11/17/24 @ 22:[address] Natalia Felix, DO) ADHD Anxiety and depression Hx of migraines Splenomegaly Easy bruising Arthritis Home Medications ?Medication ?Instructions ?Recorded ?Last Taken ?Type methylphenidate HCl 27 mg 27 mg PO DAILY ADD 10/01/18 Unknown History tablet,extended release 24 hr trazodone 100 mg tablet 100 mg PO QHS 10/01/18 Unkno wn History erenumab-aooe 140 mg/mL 140 mg SQ QMONTH 12/05/19 Un known History subcutaneous auto-injector ascorbate calcium (vitamin C) 500 500 mg PO DAILY 09/10 03/03 Unknown History mg tablet vitamin with calcium ea PO 09/28/21 Unknown H istory no.72-iron 27 mg-folic acid 1 mg tablet duloxetine 40 mg capsule,delayed 40 mg PO DAILY Unknown History release magnesium oxide 500 mg capsule 1,000 mg PO DAILY 10/06 Unknown History vitamin B complex 1 tab PO DAILY 10/06/21 Unkn own History rizatriptan 10 mg tablet 10 mg PO .COMPLEX PRN Unknown History lansoprazole 15 mg capsule,delayed 20 mg PO DAILY 02/03 Unknown History release (Prevacid 24Hr) Allergy/AdvReac Type Severity Reaction Status Date / Time amoxicillin Allergy Hives Verified 11/17/24 16:43 Sulfa (Sulfonamide Allergy Hives Verified 11/17/24 16:43 Antibiotics) zolmitriptan (From Zomig) Allergy ; Verified 11/17/24 16:43 verapamil AdvReac lightheaded Verified 11/17/24 16:43 dizzy Surgical History History of hysterectomy History of [...] do you feel safe at home: Yes ROS ROS ED Constitutional Constitutional ED: Denies chills or fever(s) Cardiovascular Cardiovascular: Reports as per HPI and chest pain Respiratory/Chest Respiratory/Chest: Reports dyspnea; Denies cough Gastrointestinal Gastrointestinal: Denies diarrhea, nausea or vomiting Musculoskeletal Musculoskeletal: Reports back pain and neck pain Integumentary Denies rash Neurologic Neurologic: Denies paresthesias or weakness Psychiatric Psychiatric: Reports anxiety Hematologic/Lymphatic Hematologic/Lymphatic: Denies easy bleeding or easy bruising EXAM Physical Exam Const Vital Signs: 11/17/24 16:43 11/17/24 16:45 11/17/24 17:43 Temperature 98.2 F Temperature Source Oral Pulse Rate 92 88 Respiratory Rate 22 H 16 Respiratory Effort Short of Breath Blood Pressure 152/93 H 132/94 H Blood Pressure Mean 112 106 Pulse Ox 97 98 Oxygen Delivery Method Room Air 11/17/24 17:54 11/17/24 18:00 11/17/24 19:00 Temperature Temperature Source Pulse Rate 82 79 Respiratory Rate 16 15 Respiratory Effort Blood Pressure 117/83 H 113/81 H Blood Pressure Mean 94 91 Pulse Ox 97 94 Oxygen Delivery Method Room Air Room Air Room Air 11/17/24 20:00 11/17/24 20:25 11/17/24 21:00 Temperature Temperature Source Pulse Rate 86 93 83 Respiratory Rate 18 17 Respiratory Effort Blood Pressure 118/81 H 120/81 H 109/80 Blood Pressure Mean 93 89 Pulse Ox 93 92 Oxygen Delivery Method Room Air Room Air 11/17/24 22:00 Temperature Temperature Source Pulse Rate 79 Respiratory Rate 16 Respiratory Effort Blood Pressure 110/73 Blood Pressure Mean 85 Pulse Ox 95 Oxygen Delivery Method Room Air Positive well nourished and well developed General Appearance ED: well developed and NAD HEENT Reports moist mucous membranes normocephalic and atraumatic Eyes PERRL Neck supple and no JVD Neck Narrative: Mild left lateral neck tenderness to palpation Chest Wall inspection of chest normal Chest Narrative: No significant reproducible chest wall tenderness. No chest wall crepitus. Resp Resp Narrative: Mildly tachypneic with shallow respirations. Slightly diminished breath sounds at the bases. Auscultation: Negative for rhonchi or wheezes Cardio regular rate, regular rhythm and no murmurs Cardio Narrative: 2+ radial DP pulses present GI normal to inspection, nondistended, normoactive bowel sounds, soft to palpation and non-tender GI Narrative: Negative Whitlock sign. Extremity normal to inspection General Extremety ED: Negative for edema General Extremity: Negative for edema Neuro oriented x3 Sensorium / Orientation: awake and alert Motor Exam: Negative for general weakness Psych mental status grossly normal Mood & Affect: anxious Skin no rashes or lesions noted and no wounds Heart Score History: Slightly/Non-Suspicious ECG: Normal Age: >45 - <65 years Risk Factors: 1 or 2 Risk Factors Troponin: >/=3 x Normal Limit Score: 4 MDM MDM MDM Narrative Medical decision making narrative: Patient evaluated for sudden onset of left-sided chest pain that radiates to herneck and down to her back. She does have some muscle skeletal tenderness of theleft trapezius but she says this does not reproduce her chest pain. She denies any physical injuries that could have triggered her pain. Differential includes ACS, pulmonary embolism, pericarditis, myocarditis, pleural effusion, pneumothorax and less likely referred abdominal pain. Patienthas a benign abdominal exam with no tenderness to lower suspicion for this. Workup shows a normal CBC. D-dimer is normal at 0.30. CMP unremarkable, she has a very mild transaminitis but this is nonspecific. Initial high-sensitivitytroponin was delayed but it was elevated at 76. Repeat EKG is obtained as should her chest pain is returning after receiving initial morphine and I am having a hard time treating the chest pain. She does not have any dynamic EKG changes. Initially feel this could be more muscle skeletal and she was given Flexeril with some improvement however her pain came back. She was given trial of nitroglycerin but after her second dose she started to have increased pain and became more tachycardic. She has more shallow respirations. Carefully explained her pain and CTAs added onto ensure that there is no subtle PE or pneumonia that is causing her pain despite having a normal chest x-ray. CTA of the chest shows ectasia of the main pulmonary artery and enlargement of the distal pulmonary arteries which could be seen in pulmonary hypertension as well as trace left pleural effusions. Patient's pain is returning and she is given Ativan. She is also given IV fluids. Patient had some improvement but pain returns given aspirin and fentanyl. Will be admitted to hospitalist for further cardiac workup given her elevated troponin and unexplained chest pain. Given that her troponin is downtrending donot think she requires heparin drip or emergent cardiology consults especially she does not have acute EKG changes. Lab Data Labs: Laboratory Results - last 24 hr 11/17/24 11/17/24 16:45 18:45 WBC 7.4 RBC 4.38 Hgb 13.9 Hct 41.6 MCV 95.0 MCH 31.7 MCHC 33.4 RDW Std Deviation 44.7 H RDW Coeff of Maged 12.9 Plt Count 308 MPV 9.3 Immature Gran % (Auto) 0.100 Neut % (Auto) 40.4 L Lymph % (Auto) 46.6 H Owen % (Auto) 10.2 H Eos % (Auto) 2.0 Baso % (Auto) 0.7 Absolute Neuts (auto) 3.0 Absolute Lymphs (auto) 3.43 Nucleated RBC % 0 D-Dimer Quant (PE/DVT) 0.30 Sodium 142 Potassium 4.0 Chloride 104 Carbon Dioxide 26.2 Anion Gap 12 BUN 14 Creatinine 0.81 Estim Creat Clear Calc 78.15 Est GFR (MDRD) Non-Af 84 BUN/Creatinine Ratio 16.7 Glucose 130 H Calcium 9.6 Total Bilirubin 0.58 Direct Bilirubin 0.20 AST 37 H ALT 44 H Alkaline Phosphatase 68 Troponin T High Sens 76 H* Troponin T Hi Sens 2 Hr 69 H* Total Protein 7.5 Albumin 4.5 Globulin 3.0 Lipase 40 Radiography Chest X-Ray - ED: 2 View, Read by ED Physician, Read by Radiologist and No AcuteDisease Diagnostic Testing: Clinical Impression(s) from Imaging Studies Chest X-Ray 11/17/24 19:18 IMPRESSION: NO ACUTE FINDINGS. Reading Location: [facility] Chest CTA 11/17/24 20:36 IMPRESSION: 1. No acute pulmonary embolism. 2. Ectasia of the main pulmonary artery and enlargement of the distal pulmonary arteries, which can be seen with pulmonary hypertension. 3. Trace left pleural effusion. Reading Location: [facility] Rhythm Strip Rhythm Strip: Sinus Rhythm Rate: 92 Ectopy: None EKG Initial EKG: Attestation: I personally reviewed and interpreted this EKG as follows: Interpretation: Sinus Rhythm Comments: Normal sinus rhythm rate of 92 bpm Normal axis Normal intervals Normal ST segments Prior EKG tracings: available for review Prior: Unchanged Follow-up EKG: Attestation: I personally reviewed and interpreted this EKG as follows: Interpretation: Sinus Rhythm Comments: Normal sinus rhythm at a rate of 87 bpm Normal axis Normal intervals Normal ST segments No change from the prior EKG Management Discussion w/another healthcare provider: Hospitalist Discharge Plan Triage Chief Complaint: Chest Pain ED Provider: Natalia Felix Dx/Rx/DC Orders Clinical Impression: Chest pain, Elevated troponin Prescriptions: No Action ascorbate calcium (vitamin C) 500 mg tablet 500 mg PO DAILY Vitamin Plus Low Iron 27 mg iron- 1 mg tablet PO Patient Comments: TAKE 1 TABLET BY MOUTH EVERY DAY DO NOT TAKE AT SAME TIME FERROUS GLUCONATE duloxetine 40 mg capsule,delayed release(DR/EC) 40 mg PO DAILY magnesium oxide 500 mg capsule 1,000 mg PO DAILY vitamin B complex Tablet 1 tab PO DAILY rizatriptan 10 mg tablet 10 mg PO .COMPLEX PRN Rx Instructions: 10 mg orally PRN; trazodone 100 MG tablet 100 mg PO QHS methylphenidate HCl 27 MG tablet extended release 24hr 27 mg PO DAILY erenumab-aooe 140 MG/ML auto-injector 140 mg SQ QMONTH Primary Care Provider: Denise Cheng Referrals: Denise Cheng MD [Primary Care Provider] - Print Language: Chinese Disposition Disposition: Acute Care Hospital [facility] What to do if you have Problems For any increased pain, shortness of breath, bleeding, nausea or vomiting, chestpain, or any unexpected problems, contact your Primary Care Provider. Call [phone] [facility] ([phone]) or report to the closest Emergency Room. Call 911 if necessary. 11/17/244 <Electronically signed by Natalia Felix DO> Cosigner Signature (if applicable): CC: Dr. Denise Cheng MD ~ Signed [facility] Work Phone: 1(421) 104-290702-16-2025 Evaluation note* Diagnosis Onset Date Resolution Status Admit Date Urinary tract infection noneactive F [facility] 2024 12:44pm Viral URI with cough acute [facility] 2024 9:22am [facility] Work Phone: 1(687) 846-559902-16-2025 Evaluation note* Diagnosis Onset Date Resolution Status Admit Date Urinary tract infection noneactive F [facility] 2024 12:44pm Viral URI with cough acute [facility] h 2024 9:22am Chest pain acute November 17, 2024 10:34pm [facility] Work Phone: 1(297) 512-820104-05-2024 Discharge summary Author Ricardo Salvador [facility] September 15, 2023 8:26am Note Date/Time September 15, 2023 8:26 am [facility] Physical Therapy [facility] [address] [place] [address] [address] [place] [address] / REHABILITATION SERVICES DISCHARGE SUMMARY MR#: [id number] Acct: [id number] Name: YUMIKO SINGH Rep #: [id number] : 1965 57 From: Ricardo Anna Referring Dr.: Dr. Denise Cheng MD Status: REG [facility] Insurance: [employer]URANCE Patient Information [...] appropriate by the physician. Thank you! Ricardo Salvador DPT Balance/Gait/Functional tests Balance/Special Test Scores Lower Extremity Functional Score: 40 <Electronically signed by Ricardo Salvador DPT> 09/15/23 0826 CC: Dr. Denise Cheng MD ~ CLS Signed [facility] Work Phone: 1(882) 605-253808-23-2023 NoteHNO ID: [id number] Author: Sherlyn Garcia RN Service: ? Author [...] to utilize the above equipment. Sherlyn Garcia [facility]-2023 NoteHNO ID: [id number] Author: Jared Bernard Service: ? Author Type: [...] mouth as needed. For sleep at HS No current facility-administered medications for this visit. [...] mood. Does not a (more content not included)...[facility] 02-01-2023 NoteHNO ID: [id number] Author: Shelryn Garcia RN Service: ? Author Type: ? [...] under her toes. XR completed today to review.[facility]-23-2023 NoteHNO ID: [id number] Author: Estrellita Hoyt RT(R) Service: Radiology Author [...] BY: RT Rivas(R) February 01, 2023 1:39 [facility]08-23-2023 History of Present illness Narrative* Estrellita Hoyt [...] 01, 2023 1:39 PM [facility] Diagnosis Onset Date Resolution Status Easy bruising chronic Splenomegaly chronic Easy bruising chronic Splenomegaly chronic [facility] Work Phone: Evaluation note* Diagnosis Onset Date Resolution Status Splenomegaly chronic [facility] Work Phone: Evaluation noteNo assessment information available [facility] Work Phone: Evaluation note* Diagnosis Plantar fascial fibromatosis documented in this encounter [facility] note* Diagnosis Onset Date Resolution Status Acute sinusitis, unspecified acute Contact with or exposure to other viral diseases acute [facility] Work Phone: History and physical note Author Esther Gaspar [facility] Note Date/Time November 17, 2024 10:37 pm [facility] Medical Records Department [address] [place] [address] H&P Exam - Hospitalist 11/17/24 2213 MR#: [id number] Acct: [id number] Name: YUMIKO SINGH Rep #:[id number] : 1965 59 From: Esther Gaspar MD PCP: Dr. Denise Cheng MD Status:ADM IN Location: [facility] [id number] HPI - General General Date of Admission: 11/17/24 Date of Service: 11/17/24 Chief Complaint: Chest pain HPI Narrative The patient is a 59 y/o F w/ PMHx: Anxiety and Depression/ADHD, Chronic migraines, OA who presents to the [facility] ED on 11/17/2024 withhistory of onset chest discomfort starting approximately 2 hours prior to ED arrival specifically under the left rib/breast region radiating up into the neckas well as the trapezius region noted that she was in the car when it started never having had this before noted to be worse with activity including movement and deep inspiratory effort prompting ED evaluation. She does state upon arrival an unintentional 20 pound weight loss over this last year but has had noGI symptoms. She did have a recent PCP evaluation with an outpatient ultrasoundbut is not yet had it performed. She does report that she is post to have an upcoming meniscal repair on her knee this coming Monday outpatient. Workup inthe ED included T98.2, heart 92, BP 152/93, respiratory rate 22, 97% on room airwith most recent repeat vitals heart rate 79, BP 110/73, respiratory rate 16, 95% on room air, CBC with WBC 7.4, hemoglobin 13.9, platelet 308 without marked shift, D-dimer 0.30, CMP with glucose 130, AST/ALT 37/44, hepatic profile otherwise unremarkable, lipase 40, troponin initial 76 with repeat delta 69, chest x-ray with no acute cardiopulmonary findings, CTPA with no acute pulmonaryemboli, ectasia of the main pulmonary artery and enlargement of distal pulmonaryarteries seen with possible pulmonary hypertension, trace left pleural effusion,EKG with SR without acute evidence of ischemia. In the ED patient ministered 1 L normal saline, full-strength aspirin therapy, morphine 4 mg IV x 1, sublingualnitroglycerin, Ativan 0.5 mg IV x 1, fentanyl 50 mcg IV x 1, cyclobenzaprine 10 mg p.o. x 1. [facility] Medical History ADHD Anxiety and depression Hx of migraines Splenomegaly Easy bruising Arthritis Home Medications ?Medication ?Instructions ?Recorded ?Last Taken ?Type methylphenidate HCl 27 mg 36 mg PO DAILY ADD 10/01/18 Unknown History tablet,extended release 24 hr trazodone 100 mg tablet 100 mg PO QHS 10/01/18 Unkno wn History erenumab-aooe 140 mg/mL 140 mg SQ QMONTH 12/05/19 Un known History subcutaneous auto-injector ascorbate calcium (vitamin C) 500 500 mg PO DAILY 09/10 03/03 Unknown History mg tablet vitamin with calcium ea PO DAILY 09/28/21 Unk nown History no.72-iron 27 mg-folic acid 1 mg tablet duloxetine 40 mg capsule,delayed 40 mg PO DAILY Unknown History release magnesium oxide 500 mg capsule 1,000 mg PO DAILY 10/06 Unknown History vitamin B complex 1 tab PO DAILY 10/06/21 Unkn own History rizatriptan 10 mg tablet 10 mg PO .COMPLEX PRN migrai ne 01/27/23 Unknown History headache lansoprazole 15 mg capsule,delayed 20 mg PO DAILY 02/03 Unknown History release (Prevacid 24Hr) Allergy/AdvReac Type Severity Reaction Status Date / Time amoxicillin Allergy Hives Verified 11/17/24 16:43 Sulfa (Sulfonamide Allergy Hives Verified 11/17/24 16:43 Antibiotics) zolmitriptan (From Zomig) Allergy ; Verified 11/17/24 16:43 verapamil AdvReac lightheaded Verified 11/17/24 16:43 dizzy Family History Mother Thyroid disorder Father , young in the . No medical history. No problems noted. Surgical History History of hysterectomy History of [...] do you feel safe at home: Yes ROS ROS Narrative Admission Review of Systems: CONSTITUTIONAL: No weight loss, fever, chills, + weakness or fatigue. HEENT: Eyes: No visual loss, blurred vision, double vision or yellow sclerae. Ears, Nose, Throat: No hearing loss, sneezing, congestion, runny nose or sore throat. SKIN: No rash or itching, lesions, wounds. CARDIOVASCULAR: + Chest pain. No palpitations, edema, orthopnea, syncopal events. RESPIRATORY: + Pleuritic chest pain. No shortness of breath, cough or sputum, wheezing, hemoptysis. GASTROINTESTINAL: No anorexia, nausea, vomiting or diarrhea, abdominal pain, melena, BRBPR. GENITOURINARY: No dysuria, frequency, urgency or retention. NEUROLOGICAL: + Hx migraines. No headache, dizziness, syncope, paralysis, ataxia, numbness or tingling in the extremities, focal weakness, change in bowelor bladder control, seizure. MUSCULOSKELETAL: + Muscle, back pain, joint pain or stiffness. HEMATOLOGIC: No anemia, bleeding or bruising. LYMPHATICS: No enlarged nodes. No history of splenectomy. PSYCHIATRIC: + History of anxiety and depression/ADHD. ENDOCRINOLOGIC: No reports of sweating, cold or heat intolerance. No polyuria orpolydipsia. ALLERGIES: + Hx of hives. Vital Signs Vital Signs Vital Signs: 11/17/24 16:43 11/17/24 16:45 11/17/24 17:43 Temperature 98.2 F Temperature Source Oral Pulse Rate 92 88 Respiratory Rate 22 H 16 Respiratory Effort Short of Breath Blood Pressure 152/93 H 132/94 H Blood Pressure Mean 112 106 Pulse Ox 97 98 Oxygen Delivery Method Room Air 11/17/24 17:54 11/17/24 18:00 11/17/24 19:00 Temperature Temperature Source Pulse Rate 82 79 Respiratory Rate 16 15 Respiratory Effort Blood Pressure 117/83 H 113/81 H Blood Pressure Mean 94 91 Pulse Ox 97 94 Oxygen Delivery Method Room Air Room Air Room Air 11/17/24 20:00 11/17/24 20:25 11/17/24 21:00 Temperature Temperature Source Pulse Rate 86 93 83 Respiratory Rate 18 17 Respiratory Effort Blood Pressure 118/81 H 120/81 H 109/80 Blood Pressure Mean 93 89 Pulse Ox 93 92 Oxygen Delivery Method Room Air Room Air 11/17/24 22:00 Temperature Temperature Source Pulse Rate 79 Respiratory Rate 16 Respiratory Effort Blood Pressure 110/73 Blood Pressure Mean 85 Pulse Ox 95 Oxygen Delivery Method Room Air Weight Weight: 171 lb 8.314 oz Body Mass Index (BMI) 25.3 Physical Exam Narrative Physical Examination: General: Awake, alert, oriented x 3 and cooperative, laying in ED bed, notes persistent left focal pain just beneath the breast. Skin: Normal color, normal turgor, no icterus, no cyanosis. HEENT: AT/NC, EOMI, PERRLA, mildly dry MM, no carotid bruits or JVD noted. Lungs: Mildly diminished, greater bases, very shallow poor effort breathing secondary to pain elicited with deep inspiratory effort, no rales, ronchi or wheezing. Heart: Regular rate and rhythm; no gallop, rub audible. Reproducible discomfortwith palpation of the left lateral ribs beneath the left breast. Abdomen: Soft, overweight, NTTP, ND, normal BS, no appreciated HSM. Extremities: No cyanosis, clubbing, or edema. Neurological: Patient awake, alert, oriented as noted cognitive function intact;pupils equally reactive to light and accommodation, cranial nerves gross normal,moving all 4 extremities, no focal deficits, strength mildly to moderately globally creased secondary to pain elicited with any movement or deep inspiration. Psychiatric: Affect appears fatigued, uncomfortable no acute evidence of depressive or anxiety feelings but does have underlying history. Results Lab / Micro Data 11/17/24 16:45 11/17/24 16:45 Labs: Laboratory Results - last 24 hr 11/17/24 16:45: WBC 7.4, RBC 4.38, Hgb 13.9, Hct 41.6, MCV 95.0, MCH 31.7, MCHC 33.4, RDW Std Deviation 44.7 H, RDW Coeff of Maged 12.9, Plt Count 308, MPV 9.3, Immature Gran % (Auto) 0.100, Neut % (Auto) 40.4 L, Lymph % (Auto) 46.6 H, Owen % (Auto) 10.2 H, Eos % (Auto) 2.0, Baso % (Auto) 0.7, Absolute Neuts (auto) 3.0,Absolute Lymphs (auto) 3.43, Nucleated RBC % 0, D-Dimer Quant (PE/DVT) 0.30, Sodium 142, Potassium 4.0, Chloride 104, Carbon Dioxide 26.2, Anion Gap 12, BUN 14, Creatinine 0.81, Estim Creat Clear Calc 78.15, Est GFR (MDRD) Non-Af 84, BUN/Creatinine Ratio 16.7, Glucose 130 H, Calcium 9.6, Total Bilirubin 0.58, Direct Bilirubin 0.20, AST 37 H, ALT 44 H, Alkaline Phosphatase 68, Troponin T High Sens 76 H*, Total Protein 7.5, Albumin 4.5, Globulin 3.0, Lipase 40 11/17/24 18:45: Troponin T Hi Sens 2 Hr 69 H* Imaging Radiology Impression Chest X-Ray 11/17/24 19:18 IMPRESSION: NO ACUTE FINDINGS. Reading Location: [facility] Chest CTA 11/17/24 20:36 IMPRESSION: 1. No acute pulmonary embolism. 2. Ectasia of the main pulmonary artery and enlargement of the distal pulmonary arteries, which can be seen with pulmonary hypertension. 3. Trace left pleural effusion. Reading Location: [facility] Assessment & Plan Assessment/Plan (1) Chest pain: PLAN: Plan The patient is a 59 y/o F w/ PMHx: Anxiety and Depression/ADHD, Chronic migraines, OA who presents to the [facility] ED on 11/17/2024 withhistory of onset chest discomfort starting approximately 2 hours prior to ED arrival specifically under the left rib/breast region radiating up into the neckas well as the trapezius region noted that she was in the car when it started never having had this before noted to be worse with activity including movement and deep inspiratory effort prompting ED evaluation. #1. Chest Pain, atypical with indeterminate cardiac enzyme of unclear etiology,possibly multifactorial including component musculoskeletal and #5: EKG in ED with SR without acute evidence of ischemia, CXR w/ no acute cardiopulmonary finding, CTPA with no acute pulmonary emboli, ectasia of the main pulmonary artery and enlargement of distal pulmonary arteries seen with possible pulmonaryhypertension, trace left pleural effusion, initial trop 76 with repeat delta 69.Will admit to PCU, place on a monitored bed to assure no acute myocardial infarction with serial cardiac enzymes and EKGs. As long as cardiac enzymes continue to trend downward with no EKG concerning changes with plan to pursue cardiac stress testing and given movement debility with her presentation will request nuclear option. Given also pleuritic component in the setting of elevated enzymes, will obtain ECHO, CRP and ESR also. FLP in AM. Mag pending. ASA. UDS requested. #2. Hyperglycemia, mild admission glucose 130, possibly stress response, will repeat in a.m. if further elevated may consider further assessment. #3. Mild transaminitis, unclear etiology: Admission AST/LT 37/44, hepatic profile otherwise normal, from previous labs noted to be normal in the past, will plan repeat CMP in a.m. and if rises further we will further assess. Patient following with PCP with planned upcoming outpatient gallbladder ultrasound of note. #4. Chronic migraines: Will temporally hold triptan therapy unless absolutely needed, patient also on monthly injections with erenumab, encourage continued outpatient follow-up with neurology as previously arranged. #5. Anxiety depression/ADHD: Will continue patient home trazodone, duloxetine and methylphenidate home regimen. #6. DVT prophylaxis: Lovenox. Charges/Coding Visit Charges Inpatient E&M: 99876 Init Hosp L3 11/17/242236 <Electronically signed by Esther Gaspar MD> Cosigner Signature (if applicable): CC: Dr. Esther Gaspar MD; Dr. Denise Cheng MD~ Signed [facility] Work Phone: Resquk for referral (narrative)* Diagnostic Procedure Only (Routine) - Closed Specialty Diagnoses / Procedures Referred By Contac t Referred To Contact XR IMAGING Diagnoses Plantar fascial fibromatosis Procedures XR FOOT GENERAL 3V AP/LAT/OBL BILATERAL RADEX FOOT COMPLETE MINIMUM 3 VIEWS Jared Bernard [address] [place] [address] [place] [address] Referral ID Status Reason Start Date Expiration Date V isits Requested Visits Authorized [id number] Closed Auto-Generate d Referral 01/30/2023 02/29/2024 1 1 [facility] for referral (narrative)No reason for referral information availableW[facility] Work Phone: Reason for visit Narrative* Diagnostic Procedure Only (Routine) - Closed Specialty Diagnoses / Procedures Referred By Contzelda t Referred To Contact XR IMAGING Diagnoses Plantar fascial fibromatosis Procedures XR FOOT GENERAL 3V AP/LAT/OBL BILATERAL RADEX FOOT COMPLETE MINIMUM 3 VIEWS Jared Bernard[address] [place] [address] [place] [address] Referral ID Status Reason Start Date Expiration Date V isits Requested Visits Authorized [id number] Closed Auto-Generate d Referral 01/30/2023 02/29/2024 1 1 [facility] Summary Purpose Family History No Family History Records Found Relationship Condition Age at Onset Recorded Date/T meaghan mother Disorder of thyroid Unknown Advance Directives No Advanced Directives Records Found Advance Directive Response Recorded Date/ Time Living Will No December 05, 2019 11:10am Power of Eligibility Supervisor No December 04 0 11:10am Advance Directive Response Recorded Date/ Time Living Will No December 05, 2019 10:10am Power of Eligibility Supervisor No December 04 0 10:10am Advance Directive Response Recorded Date/ Time Do you have a Healthcare Power of Eligibility Supervisor? No November 17, 2024 4:45pm Chief Complaint and Reason for Visit Chief [...] PRE OP October 01, 2024 7:2 3am Chief Complaint Admit Date Urinary tract infection July 28 12:44pm COUGH/ST/FEVER/CONGESTION August 10 9:22am SCREENING September 03, 2024 7:0 5am PRE OP October 01, 2024 7:1 3am PRE OP October 01, 2024 7:2 3am CHEST PAIN November 17, 2024 10:34 pm Reason for Visit Admit Date Urinary tract infection July 28 12:44pm Viral URI with cough August 10, 2024 9:2 2am Chest pain November 17, 2024 10:34 pm Additional Source Comments INFORMATION SOURCE (unrecogn ized section and content) DATE CREATED AUTHOR 12/04/2017 [facility] ([place]) DATE CREATED AUTHOR AUTHOR'S ORGANIZ ATION 02/05/2023 [facility] DATE CREATED AUTHOR AUTHOR'S ORGANIZ ATION 11/17/2024 [facility] Care Teams (unrecognized sec tion and [...] MD Attending Provider, Referrin g Provider Active 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 Denise Cheng MD Primary Care Provider Active Start: July 29, 2024 End: July 29, 2024 Adilson Cordova FURNITURE SALESPERSON, FURNITURE SALESPERSON-C Attending Provider Active S tart: July 29, [...] October 31, 2024 End: October 31, 2024 Team Status: Active Member Role Status Dates Dr. Denise Cheng MD Primary Care Provider Active Start: November 17, 2024 Dr. Natalia Felix DO Emergency Provider Active Start: November 17, 2024 Dr. Esther Gaspar MD Admit Provider Active St art: November 17, 2024 Dr. Esther Gaspar MD Attending Provider Active Start: November 17, 2024 Dr. Esther Gaspar MD Other Provider Active St art: November 17, 2024 Source Comments (unrecognize d section and content) In the event this informatio n is protected by the Federal Confidentiality of Alcohol and Drug Abuse Patient Records regulations: The Federal rules restrict any use of the information to criminally investigate or prosecute any alcohol or drug abuse patient.[facility] FOR RECORDS PERTAINING TO PATIENTS [...] BE BASED ON THE PRIMARY CLINICAL RECORDS. [facility]. provides no warranty or guarantee of the accuracy or completeness of information in this document.
--- OUTSIDE RECORDS SUMMARY | 2024-11-17 23:23 | XMS RPT_ITS | CCD ---
Author Organization [facility] Care Team Providers Care Drums Teacher Name Role Phone CARMEN, LAMAR P. Unavailable [...] Unavailable Dr. Denise Cheng Primary Care Provider [phone] Dr. Denise Cheng Referring Provider Dr. Cecilio Lopez Attending Provider Dr. Denise Cheng Primary Care Provider [phone] Dr. Denise Cheng Referring Provider Dr. Cecilio Lopez Attending Provider JARED BERNARD Attending Unavailable DENISE CHNEG Primary Care Unavailable JARED BERNARD Referring Unavailable DENISE CHENG Primary Care Unavailable Prosper COHEN, Denise Pereira Primary Care Provider Dr. Denise Cheng Primary Care Provider Dr. Denise Cheng Referring Provider Iqra OMALLEY, SHAHRAM Bhardwaj Attending Provider Dr. Denise Cheng MD Primary Care Provider Dr. Denise Cheng MD Referring Provider Tasha ZACARIAS-CAdilson Attending Provider Denis BIOMEDICAL SERVICE ENGINEER-CFarida Attending Provider Dr. Denise Cheng MD Attending Provider [phone] Dr. Saul Bazan DO Attending Provider Dr. Saul Bazan DO Referring Provider Dr. Giancarlo Hammer MD Attending Provider Dr. Natalia Felix DO Emergency Provider Dr. Esther Gaspar MD Admit Provider [phone] Dr. Esther Gaspar MD Attending Provider Cheng, [...] sources) Amoxicillin; Translations: [AMOXICILLIN] Drug Allergy 6 [facility] (16 sources) Sulfonamides (Antibiotic); Translations: [SULFA (SULFONAMIDE ANTIBIOTICS)] Allergy to substance 6 [facility] (13 sources) Verapamil Drug Allergy 2 lightheaded dizzy [facility] (13 sources) ZOLMitriptan Drug Allergy 2 ; [facility] (1 source) Amoxicillin Drug Allergy 5 [facility] (1 source) Verapamil Drug Allergy 5 [facility] (1 source) ZOLMitriptan Drug Allergy 5 [facility] Medications Current Medications Medication Drug Class(es) [...] 06, 2021 12:00am take 1 capsule by [facility] twice daily magnesium oxide 400 mg cap Take 1 capsule by mouth twice daily. 0 Active Comment on above: Take 1 capsule by [facility] twice daily. 24 hr methylphenidate hydrochloride [...] PO DAILY October 01, 2018 12:00am Pnv,Calcium 07-Olso-Omscz Ac id ( Vitamin Plus Low Iron) [...] EACH PO September 28, 2021 12:00am Pnv,Calcium 24-Fjyy-Jlaai Acid 27 mg iron- 1 mg tablet (1 source) Start: 09-28-2021 Pnv,Calcium 67-Qtmw-Yntql Acid 27 mg iron- 1 mg tablet [...] Auto (Unsp spec) [#/Vol] 3.43 10*3/uL 0.83-4.51 [facility] Absolute neutrophil countOrd ered By: Natalia Felix on 11-17-2024 Neutrophils (Bld) [#/Vol] 3.0 10*3/uL 2.0-7.7 [facility] Anion gap in Serum or Plasma Ordered By: Natalia Felix on 11-17-2024 Anion gap [Moles/Vol] 12 mmol/L 5-15 [facility] Automated lymphocyte count a s percentage of total leukocytesOrdered By: Natalia Felix on 11-17-2024 Lymphocytes/100 WBC Auto (Unsp spec) 46.6 % High 19-41 [facility] BUN/creatinine ratioOrdered By: Natalia Felix on 11-17-2024 Urea nitrogen/Creatinine [Mass ratio] 16.7 mg/mg - [facility] Basic Metabolic Profile (BMP )on 11-17-2024 BUN/CRE 16.7 RATIO Normal 03-31 [facility] Comment on above: Performed By: #### L 500.2500, L501.2450, L500.3400 ####[facility] [address] [place], [address] Calcium [Mass/Vol] 9.6 mg/dL Normal 7.6-11.0 [facility] Comment on above: Performed By: #### L 500.2500, L501.2450, L500.3400 ####[facility] [address] [place], [address] Chloride [Moles/Vol] 104 mmol/L Normal 98-108 [facility] Comment on above: Performed By: #### L 500.2500, L501.2450, L500.3400 ####[facility] [address] [place], [address] CO2 [Moles/Vol] 26.2 mmol/L Normal 21.0-32.0 [facility] Comment on above: Performed By: #### L 500.2500, L501.2450, L500.3400 ####[facility] [address] [place], [address] Creatinine [Mass/Vol] 0.81 mg/dL Normal 0.70-1.20 [facility] Comment on above: Performed By: #### L 500.2500, L501.2450, L500.3400 ####[facility] [address] [place], [address] ECRCL 78.15 ml/min Normal 50-250 [facility] Comment on above: Performed By: #### L 500.2500, L501.2450, L500.3400 ####[facility] [address] [place], [address] GAP 12 Normal 5-15 [facility] Comment on above: Performed By: #### L 500.2500, L501.2450, L500.3400 ####[facility] [address] [place], [address] GFR/1.73 sq M.predicted among non-blacks MDRD (S/P/Bld) [Vol rate/Area] 84 mL/min/{1.73_m2} Normal >60 [facility] Comment on above: Result Comment: mL/m in/1.73m2 CKD-EPI Creatinine Equation (2020) Performed By: #### L 500.2500, L501.2450, L500.3400 ####[facility] [address] [place], [address] Glucose [Mass/Vol] 130 mg/dL High 70-99 [facility] Comment on above: Performed By: #### L 500.2500, L501.2450, L500.3400 ####[facility] [address] [place], [address] Potassium [Moles/Vol] 4.0 mmol/L Normal 3.3-5.1 [facility] Comment on above: Performed By: #### L 500.2500, L501.2450, L500.3400 ####[facility] [address] [place], [address] Sodium [Moles/Vol] 142 mmol/L Normal 133-145 [facility] Comment on above: Performed By: #### L 500.2500, L501.2450, L500.3400 ####[facility] [address] [place], [address] Urea nitrogen [Mass/Vol] 14 mg/dL Normal 4-19 [facility] Comment on above: Performed By: #### L 500.2500, L501.2450, L500.3400 ####[facility] [address] [place], [address] Basophil percentageOrdered B y: Natalia Felix on 11-17-2024 Basophils/100 WBC (Bld) 0.7 % 0-1 [facility] Bilirubin directOrdered By: Natalia Felix on 11-17-2024 Bilirubin.direct [Mass/Vol] 0.20 mg/dL 0.00-0.30 [facility] Bilirubin, totalOrdered By: Natalia Felix on 11-17-2024 Bilirubin [Mass/Vol] 0.58 mg/dL 0.00-1.30 [facility] CBC W/Diff, Automatedon Absolute Lymph 3.43 X10 3/uL Normal 0.83-4.51 [facility] Comment on above: Performed By: #### L 501.4021, L100.0100 ####[facility] [address] [place], [address] Absolute Neut 3.0 X10 3/uL Normal 2.0-7.7 [facility] Comment on above: Performed By: #### L 501.4021, L100.0100 ####[facility] [address] [place], [address] Basophils/100 WBC (Bld) 0.7 % Normal 0-1 [facility] Comment on above: Performed By: #### L 501.4021, L100.0100 ####[facility] [address] [place], [address] Eosinophils/100 WBC (Bld) 2.0 % Normal 0-5 [facility] Comment on above: Performed By: #### L 501.4021, L100.0100 ####[facility] [address] [place], [address] Erythrocyte distribution width (RBC) [Ratio] 12.9 % Normal 11.6-14.6 [facility] Comment on above: Performed By: #### L 501.4021, L100.0100 ####[facility] [address] [place], [address] Hematocrit (Bld) [Volume fraction] 41.6 % Normal 37-47 [facility] Comment on above: Performed By: #### L 501.4021, L100.0100 ####[facility] [address] [place], [address] Hemoglobin (Bld) [Mass/Vol] 13.9 g/dL Normal 12.0-15.0 [facility] Comment on above: Performed By: #### L 501.4021, L100.0100 ####[facility] [address] [place], [address] IG% 0.100 Normal 0.0-0.9 [facility] Comment on above: Result Comment: IG% - Immature Granulocytes (promyelocytes, myelocytes and metamyelocytes) > 1% indicates that a LEFT SHIFT is Present. Performed By: #### L 501.4021, L100.0100 ####[facility] [address] [place], [address] Lymphocytes/100 WBC (Bld) 46.6 % High 19-41 [facility] Comment on above: Performed By: #### L 501.4021, L100.0100 ####[facility] [address] [place], [address] MCH (RBC) [Entitic mass] 31.7 pg Normal 27.0-32.0 [facility] Comment on above: Performed By: #### L 501.4021, L100.0100 ####[facility] [address] [place], [address] MCHC (RBC) [Mass/Vol] 33.4 g/dL Normal 32-36 [facility] Comment on above: Performed By: #### L 501.4021, L100.0100 ####[facility] [address] [place], [address] MCV (RBC) [Entitic vol] 95.0 fL Normal 81-99 [facility] Comment on above: Performed By: #### L 501.4021, L100.0100 ####[facility] [address] [place], [address] Monocytes/100 WBC (Bld) 10.2 % High 0-10 [facility] Comment on above: Performed By: #### L 501.4021, L100.0100 ####[facility] [address] [place], [address] Neutrophils/100 WBC (Bld) 40.4 % Low 47-70 [facility] Comment on above: Performed By: #### L 501.4021, L100.0100 ####[facility] [address] [place], [address] Nucleated RBC (Bld) [#/Vol] 0 10*3/uL Normal 0-5 [facility] Comment on above: Performed By: #### L 501.4021, L100.0100 ####[facility] [address] [place], [address] Platelet mean volume (Bld) [Entitic vol] 9.3 fL Normal 6.2-12.0 [facility] Comment on above: Performed By: #### L 501.4021, L100.0100 ####[facility] [address] [place], [address] Platelets (Bld) [#/Vol] 308 10*3/uL Normal 150-450 [facility] Comment on above: Performed By: #### L 501.4021, L100.0100 ####[facility] [address] [place], [address] RBC (Bld) [#/Vol] 4.38 10*6/uL Normal 4.2-5.4 [facility] Comment on above: Performed By: #### L 501.4021, L100.0100 ####[facility] [address] [place], [address] RDW SD 44.7 fl High 35.1-43.9 [facility] Comment on above: Performed By: #### L 501.4021, L100.0100 ####[facility] [address] [place], [address] WBC (Bld) [#/Vol] 7.4 10*3/uL Normal 4.4-11.0 [facility] Comment on above: Performed By: #### L 501.4021, L100.0100 ####[facility] [address] [place], [address] CTA Chest W/WO Contraston CTA Chest W/WO Contrast [facility] Imaging Services [address] [place] [address] CTA Chest W/WO Contrast MR#: [id number] Acct: [id number] Name: YUMIKO SINGH Rep #: [id number] : 1965 F 59 From: Jacqueline Amor nd, MD PCP: Dr. Denise Cheng MD Status: [facility] ER Study: CTA Chest W/WO Contrast Date of Exam: 11/17/24 Exam# [id number] Ordering Dr: Natalia Felix DO PROCEDURE: CTA [...] 3. Trace left pleural effusion. Reading Location: [facility] CC: Dr. Natalia Felix DO; Dr. Denise Cheng MD Balance Wheel Motion Inspector: Signed Normal [facility] Carbon dioxide, total [Moles /volume] in Central venous bloodOrdered By: Natalia Felix on 11-17-2024 CO2 [Moles/Vol] 26.2 mmol/L 21.0-32.0 [facility] Chest PA and Lateralon 11-17 Chest PA and Lateral [facility] Imaging Services [address] [place] [address] Chest PA and Lateral MR#: [id number] Acct: [id number] Name: YUMIKO SINGH Rep #: [id number] : 1965 F 59 From: Jacqueline Amor nd, MD PCP: Dr. Denise Cheng MD Status: [facility] ER Study: Chest PA and Lateral Date of Exam: 11/17/24 Exam# [id number] Ordering Dr: Natalia Felix DO PROCEDURE: CHEST [...] Lateral IMPRESSION: NO ACUTE FINDINGS. Reading Location: [facility] CC: Dr. Natalia Felix DO; Dr. Denise Cheng MD Balance Wheel Motion Inspector: Signed Normal [facility] Chloride assayOrdered By: Norman Felix on 11-17-2024 Chloride [Moles/Vol] 104 mmol/L 98-108 [facility] D-Dimer Quantitative (DVT/PE )on 11-17-2024 D-DIMER QUANT 0.30 FEU/ug/m Normal 0.27-0.49 [facility] Comment on above: Result Comment: NORM AL D-Dimer level (<0.50) indicates no DVT or PE. Performed By: #### L 300.8000 ####[facility] [address] [facility] [place], [address] Emergency Department Summary on 11-17-2024 Emergency Department Summary [facility] Medical Records Department [address] [place] [address] Emergency Department Summary 11/17/24 MR#: [id number] Acct: [id number] Name: YUMIKO SINGH Rep #: [id number] : 1965 59 From: Natalia Felix DO [...] surgery on her knee this coming Monday. [facility] Medical History (Updated 11/17/24 [...] 21:00 Temperatur (more content not included)... Normal [facility] Eosinophil percentageOrdered By: Natalia Felix on 11-17-2024 Eosinophils/100 WBC (Bld) 2.0 % 0-5 [facility] Erythrocyte distribution wid th ratioOrdered By: Natalia Felix on 11-17-2024 Erythrocyte distribution width (RBC) [Ratio] 12.9 % 11.6-14.6 [facility] Erythrocyte distribution wid th standard deviationOrdered By: Natalia Felix on 11-17-2024 Erythrocyte distribution width (RBC) [Ratio] 44.7 fl High 35.1-43.9 [facility] Glomerular filtration rate ( GFR) estimation/1.73 sq m using serum, plasma, or whole bOrdered By: Natalia Felix on 11-17-2024 GFR/1.73 sq M.predicted among non-blacks MDRD (S/P/Bld) [Vol rate/Area] 84 mL/min/{1.73_m2} >60 [facility] Comment on above: mL/min/1.73m2 CKD-EP I Creatinine Equation (2020) H AND P Exam - [facility] 11-17-2024 H&P Exam - Hospitalist [facility] Medical Records Department [address] [place] [address] H P Exam - Hospitalist 11/17/243 MR#: [id number] Acct: [id number] Name: YUMIKO SINGH Rep #: [id number] : 1965 59 From: Esther Gaspar MD PCP: Dr. Denise Cheng MD Status:ADM IN Location: [place] [address] HPI - General General Date of Admission: 11/17/24 Date of Service: 11/17/24 Chief Complaint: Chest pain HPI Narrative The patient is a 59 y/o F w/ PMHx: Anxiety and Depression/ADHD, Chronic migraines, OA who presents to the [facility] ED on 11/17/2024 with history of onset [...] 1, cyclobenzaprine 10 mg p.o. x 1. [facility] Medical History ADHD Anxiety and depression Hx [...] wounds. CARDIOVAS (more content not included)... Normal [facility] Hematocrit Auto (Bld) [Volum e fraction]Ordered By: Natalia Felix on 11-17-2024 Hematocrit (Bld) [Volume fraction] 41.6 % 37-47 [facility] Hemoglobin measurementOrdere d By: Natalia Felix on 11-17-2024 Hemoglobin (Bld) [Mass/Vol] 13.9 g/dL 12.0-15.0 [facility] Immature granulocytes/100 WB C Auto (Bld)Ordered By: Natalia Felix on 11-17-2024 Immature granulocytes/100 WBC (Bld) 0.100 % 0.0-0.9 [facility] Comment on above: IG% - Immature Granu locytes (promyelocytes, myelocytes and metamyelocytes) > 1% indicates that a LEFT SHIFT is Present. L499.0042on 11-17-2024 Trop T High Sen 69 ng/L Invalid Interpretation Code <=14 [facility] Comment on above: Result Comment: Crit ical Result(s) Called HORR at: 2017 by: MILLICENT??Results read back by same. Performed By: #### L 499.0042 ####[facility] [address] [place], [address] L499.0043on 11-17-2024 Trop T High Sen 54 ng/L Invalid Interpretation Code <=14 [facility] Comment on above: Result Comment: Crit ical Result(s) Called at 2220: by: NBURNS TO ETEAL??Results read back by same. Performed By: #### L 499.0043 ####[facility] [address] [place], [address] L501.4021on 11-17-2024 Trop T High Sen 76 ng/L Invalid Interpretation Code <=14 [facility] Comment on above: Result Comment: Crit ical Result(s) Called HORR at: 2017 by: MILLICENT??Results read back by same. Performed By: #### L 501.4021, L100.0100 ####[facility] [address] [place], [address] Laboratory - Chemistry and C hemistry - challengeOrdered By: Natalia Felix on 11-17-2024 AST [Catalytic activity/Vol] 37 U/L High <32 [facility] Lipaseon 11-17-2024 Lipase [Catalytic activity/Vol] 40 U/L Normal 13-75 [facility] Comment on above: Result Comment: Radha garcia note: LIPASE revised reference range effective 22. New Lipase methodology. Expected to produce lower values than the previous assay method. NEW Reference Range: 13 - 75 U/L Performed By: #### L 500.2500, L501.2450, L500.3400 ####[facility] [address] [place], [address] Lipase measurementOrdered By : Natalia Felix on 11-17-2024 Lipase [Catalytic activity/Vol] 40 U/L 13-75 [facility] Comment on above: Please note:LIPASE r evised reference range effective 22. New Lipase methodology. Expected to produce lower values than the previous assay method. NEW Reference Range: 13 - 75 U/L Liver Profileon 11-17-2024 Albumin [Mass/Vol] 4.5 g/dL Normal 3.5-5.0 [facility] Comment on above: Performed By: #### L 500.2500, L501.2450, L500.3400 ####[facility] [address] [place], [address] ALK PHOS 68 U/L Normal 35-104 [facility] Comment on above: Performed By: #### L 500.2500, L501.2450, L500.3400 ####[facility] [address] [place], [address] ALT [Catalytic activity/Vol] 44 U/L High <=34 [facility] Comment on above: Performed By: #### L 500.2500, L501.2450, L500.3400 ####[facility] [address] [place], [address] AST [Catalytic activity/Vol] 37 U/L High <=31 [facility] Comment on above: Performed By: #### L 500.2500, L501.2450, L500.3400 ####[facility] [address] [place], [address] Bilirubin [Mass/Vol] 0.58 mg/dL Normal 0.00-1.30 [facility] Comment on above: Performed By: #### L 500.2500, L501.2450, L500.3400 ####[facility] [address] [place], [address] Bilirubin.direct [Mass/Vol] 0.20 mg/dL Normal 0.00-0.30 [facility] Comment on above: Performed By: #### L 500.2500, L501.2450, L500.3400 ####[facility] [address] [place], [address] Globulin (S) [Mass/Vol] 3.0 g/dL Normal 2.2-4.2 [facility] Comment on above: Performed By: #### L 500.2500, L501.2450, L500.3400 ####[facility] [address] [place], [address] T PROT 7.5 g/dL Normal 5.9-8.4 [facility] Comment on above: Performed By: #### L 500.2500, L501.2450, L500.3400 ####[facility] [address] [place], [address] MCV (mean corpuscular volume ) determinationOrdered By: Natalia Felix on 11-17-2024 MCV (RBC) [Entitic vol] 95.0 fL 81-99 [facility] Mean corpuscular hemoglobin (MCH) determinationOrdered By: Natalia Felix on 11-17-2024 MCH (RBC) [Entitic mass] 31.7 pg 27.0-32.0 [facility] Mean corpuscular hemoglobin concentration (MCHC) determinationOrdered By: Natalia Felix on 11-17-2024 MCHC (RBC) [Mass/Vol] 33.4 g/dL 32-36 [facility] Mean platelet volume determi nationOrdered By: Natalia Felix on 11-17-2024 Platelet mean volume (Bld) [Entitic vol] 9.3 fL 6.2-12.0 [facility] Monocyte percentageOrdered B y: Natalia Felix on 11-17-2024 Monocytes/100 WBC (Bld) 10.2 % High 0-10 [facility] Neutrophil percentageOrdered By: Natalia Felix on 11-17-2024 Neutrophils/100 WBC (Bld) 40.4 % Low 47-70 [facility] Nucleated red blood cell per centageOrdered By: Natalia Felix on 11-17-2024 Nucleated RBC/100 WBC (Bld) [Ratio] 0 % 0-5 [facility] Platelet countOrdered By: Norman Felix on 11-17-2024 Platelets (Bld) [#/Vol] 308 10*3/uL 150-450 [facility] Potassium measurement (mass/ volume)Ordered By: Natalia Felix on 11-17-2024 Potassium (Unsp spec) [Mass/Vol] 4.0 mmol/L 3.3-5.1 [facility] RBC Auto (Bld) [#/Vol]Ordere d By: Natalia Felix on 11-17-2024 RBC (Bld) [#/Vol] 4.38 10*6/uL 4.2-5.4 [facility] Serum creatinine measurement (mass/volume)Ordered By: Natalia Felix on 11-17-2024 Creatinine [Mass/Vol] 0.81 mg/dL 0.70-1.20 [facility] Serum globulin measurementOr dered By: Natalia Felix on 11-17-2024 Globulin (S) [Mass/Vol] 3.0 g/dL 2.2-4.2 [facility] Serum glucose measurement (m ass/volume)Ordered By: Natalia Felix on 11-17-2024 Glucose [Mass/Vol] 130 mg/dL High 70-99 [facility] Serum or plasma alanine turcios otransferase (ALT) measurementOrdered By: Natalia Felix on 11-17-2024 ALT [Catalytic activity/Vol] 44 U/L High <35 [facility] Serum or plasma albumin hannah urement (mass/volume)Ordered By: Natalia Felix on 11-17-2024 Albumin [Mass/Vol] 4.5 g/dL 3.5-5.0 [facility] Serum or plasma alkaline daya sphatase measurementOrdered By: Natalia Felix on 11-17-2024 ALP [Catalytic activity/Vol] 68 U/L 35-104 [facility] Serum or plasma calcium hannah urement (mass/volume)Ordered By: Natalia Felix on 11-17-2024 Calcium [Mass/Vol] 9.6 mg/dL 7.6-11.0 [facility] Serum or plasma urea nitroge n measurement (mass/volume)Ordered By: Natalia Felix on 11-17-2024 Urea nitrogen [Mass/Vol] 14 mg/dL 4-19 [facility] Sodium levelOrdered By: Ottoniel Felix on 11-17-2024 Sodium [Moles/Vol] 142 mmol/L 133-145 [facility] Total proteinOrdered By: Asha Felix on 11-17-2024 Protein [Mass/Vol] 7.5 g/dL 5.9-8.4 [facility] Troponin T.cardiac [Mass/vol ume] in Serum or Plasma by High sensitivity methodOrdered By: Natalia Felix on 11-17-2024 Troponin T.cardiac High sensitivity method [Mass/Vol] 54 ng/L High <14 [facility] Comment on above: Critical Result(s) C alled at 2221: by: OMKAR TO ETEAL Results read back by same. Troponin T.cardiac High sensitivity method [Mass/Vol] 69 ng/L High <14 [facility] Comment on above: Critical Result(s) C alled HORR at: 2017 by: MILLICENT Results read back by same. Troponin T.cardiac High sensitivity method [Mass/Vol] 76 ng/L High <14 [facility] Comment on above: Critical Result(s) C alled HORR at: 2017 by: MILLICENT Results read back by same. White blood cell (WBC) count Ordered By: Natalia Felix on 11-17-2024 WBC (Bld) [#/Vol] 7.4 10*3/uL 4.4-11.0 [facility] ANTINUCLEAR ANTIBODIES DIREC Ton 11-05-2024 BLAKE,DIRECT Positive Abnormal Negative [facility] Comment on above: Result Comment: Perf ormed at: - [facility] [address] [id number] Vice President Of Talent Acquisition: Dominick De La Rosa PhD, Phone: [phone] Performed By: #### L 501.6710, L500.4050, L506.0400, L100.0100, L501.9520, L3100.5475 ####[facility] [address] [place], [place], [id number] Absolute lymphocyte countOrd ered By: Denise Cheng on 10-31-2024 Lymphocytes Auto (Unsp spec) [#/Vol] 2.48 10*3/uL 0.83-4.51 [facility] Absolute neutrophil countOrd ered By: Denise Cheng on 10-31-2024 Neutrophils (Bld) [#/Vol] 2.7 10*3/uL 2.0-7.7 [facility] Anion gap in Serum or Plasma Ordered By: Denise Cheng on 10-31-2024 Anion gap [Moles/Vol] 10 mmol/L 5- [facility] Automated lymphocyte count a s percentage of total leukocytesOrdered By: Denise Cheng on 10-31-2024 Lymphocytes/100 WBC Auto (Unsp spec) 40.6 % - [facility] BUN/creatinine ratioOrdered By: Denise Cheng on 10-31-2024 Urea nitrogen/Creatinine [Mass ratio] 21.1 mg/mg High 10- [facility] Basophil percentageOrdered B y: Denise Cheng on 10-31-2024 Basophils/100 WBC (Bld) 0.8 % 0-1 [facility] Bilirubin, totalOrdered By: Denise Cheng on 10-31-2024 Bilirubin [Mass/Vol] 0.57 mg/dL 0.00-1.30 [facility] CBC W/Diff, Automatedon 10-11 Absolute Lymph 2.48 X10 3/uL Normal 0.83-4.51 [facility] Comment on above: Performed By: #### L 501.6710, L500.4050, L506.0400, L100.0100, L501.9520, L3100.5475 ####[facility] [address] [place], [address] Absolute Neut 2.7 X10 3/uL Normal 2.0-7.7 [facility] Comment on above: Performed By: #### L 501.6710, L500.4050, L506.0400, L100.0100, L501.9520, L3100.5475 ####[facility] [address] [place], [address] Basophils/100 WBC (Bld) 0.8 % Normal 0-1 [facility] Comment on above: Performed By: #### L 501.6710, L500.4050, L506.0400, L100.0100, L501.9520, L3100.5475 ####[facility] [address] [place], [address] Eosinophils/100 WBC (Bld) 3.3 % Normal 0-5 [facility] Comment on above: Performed By: #### L 501.6710, L500.4050, L506.0400, L100.0100, L501.9520, L3100.5475 ####[facility] [address] [place], [address] Erythrocyte distribution width (RBC) [Ratio] 13.2 % Normal 11.6-14.6 [facility] Comment on above: Performed By: #### L 501.6710, L500.4050, L506.0400, L100.0100, L501.9520, L3100.5475 ####[facility] [address] [place], [address] Hematocrit (Bld) [Volume fraction] 43.0 % Normal 37-47 [facility] Comment on above: Performed By: #### L 501.6710, L500.4050, L506.0400, L100.0100, L501.9520, L3100.5475 ####[facility] [address] [place], [address] Hemoglobin (Bld) [Mass/Vol] 13.9 g/dL Normal 12.0-15.0 [facility] Comment on above: Performed By: #### L 501.6710, L500.4050, L506.0400, L100.0100, L501.9520, L3100.5475 ####[facility] [address] [place], [address] IG% 0.200 Normal 0.0-0.9 [facility] Comment on above: Result Comment: IG% - Immature Granulocytes (promyelocytes, myelocytes and metamyelocytes) > 1% indicates that a LEFT SHIFT is Present. Performed By: #### L 501.6710, L500.4050, L506.0400, L100.0100, L501.9520, L3100.5475 ####[facility] [address] [place], [address] Lymphocytes/100 WBC (Bld) 40.6 % Normal 19-41 [facility] Comment on above: Performed By: #### L 501.6710, L500.4050, L506.0400, L100.0100, L501.9520, L3100.5475 ####[facility] [address] [place], [address] MCH (RBC) [Entitic mass] 31.4 pg Normal 27.0-32.0 [facility] Comment on above: Performed By: #### L 501.6710, L500.4050, L506.0400, L100.0100, L501.9520, L3100.5475 ####[facility] [address] [place], [address] MCHC (RBC) [Mass/Vol] 32.3 g/dL Normal 32-36 [facility] Comment on above: Performed By: #### L 501.6710, L500.4050, L506.0400, L100.0100, L501.9520, L3100.5475 ####[facility] [address] [place], [address] MCV (RBC) [Entitic vol] 97.3 fL Normal 81-99 [facility] Comment on above: Performed By: #### L 501.6710, L500.4050, L506.0400, L100.0100, L501.9520, L3100.5475 ####[facility] [address] [place], [address] Monocytes/100 WBC (Bld) 11.5 % High 0-10 [facility] Comment on above: Performed By: #### L 501.6710, L500.4050, L506.0400, L100.0100, L501.9520, L3100.5475 ####[facility] [address] [place], [address] Neutrophils/100 WBC (Bld) 43.6 % Low 47-70 [facility] Comment on above: Performed By: #### L 501.6710, L500.4050, L506.0400, L100.0100, L501.9520, L3100.5475 ####[facility] [address] [place], [address] Nucleated RBC (Bld) [#/Vol] 0 10*3/uL Normal 0-5 [facility] Comment on above: Performed By: #### L 501.6710, L500.4050, L506.0400, L100.0100, L501.9520, L3100.5475 ####[facility] [address] [place], [address] Platelet mean volume (Bld) [Entitic vol] 9.2 fL Normal 6.2-12.0 [facility] Comment on above: Performed By: #### L 501.6710, L500.4050, L506.0400, L100.0100, L501.9520, L3100.5475 ####[facility] [address] [place], [address] Platelets (Bld) [#/Vol] 259 10*3/uL Normal 150-450 [facility] Comment on above: Performed By: #### L 501.6710, L500.4050, L506.0400, L100.0100, L501.9520, L3100.5475 ####[facility] [address] [place], [address] RBC (Bld) [#/Vol] 4.42 10*6/uL Normal 4.2-5.4 [facility] Comment on above: Performed By: #### L 501.6710, L500.4050, L506.0400, L100.0100, L501.9520, L3100.5475 ####[facility] [address] [place], [address] RDW SD 47.4 fl High 35.1-43.9 [facility] Comment on above: Performed By: #### L 501.6710, L500.4050, L506.0400, L100.0100, L501.9520, L3100.5475 ####[facility] [address] [place], [address] WBC (Bld) [#/Vol] 6.1 10*3/uL Normal 4.4-11.0 [facility] Comment on above: Performed By: #### L 501.6710, L500.4050, L506.0400, L100.0100, L501.9520, L3100.5475 ####[facility] [address] [place], [address] CRPon 10-31-2024 C-REACTIVE PROT < 3.00 Normal 0.0-3.0 [facility] Comment on above: Performed By: #### L 501.6710, L500.4050, L506.0400, L100.0100, L501.9520, L3100.5475 ####[facility] [address] [place], [address] Carbon dioxide, total [Moles /volume] in Central venous bloodOrdered By: Denise Cheng on 10-31-2024 CO2 [Moles/Vol] 25.0 mmol/L 21.0-32.0 [facility] Chloride assayOrdered By: Nadir Cheng on 10-31-2024 Chloride [Moles/Vol] 107 mmol/L 98-108 [facility] Comprehensive Metabolic Prof ilon 10-31-2024 Albumin [Mass/Vol] 4.2 g/dL Normal 3.5-5.0 [facility] Comment on above: Performed By: #### L 501.6710, L500.4050, L506.0400, L100.0100, L501.9520, L3100.5475 ####[facility] [address] [place], [address] Albumin/Globulin [Mass ratio] 1.4 {ratio} Normal 0.9-2.4 [facility] Comment on above: Performed By: #### L 501.6710, L500.4050, L506.0400, L100.0100, L501.9520, L3100.5475 ####[facility] [address] [place], [address] ALK PHOS 65 U/L Normal 35-104 [facility] Comment on above: Performed By: #### L 501.6710, L500.4050, L506.0400, L100.0100, L501.9520, L3100.5475 ####[facility] [address] [place], [address] ALT [Catalytic activity/Vol] 44 U/L High <=34 [facility] Comment on above: Performed By: #### L 501.6710, L500.4050, L506.0400, L100.0100, L501.9520, L3100.5475 ####[facility] [address] [place], [address] AST [Catalytic activity/Vol] 34 U/L High <=31 [facility] Comment on above: Performed By: #### L 501.6710, L500.4050, L506.0400, L100.0100, L501.9520, L3100.5475 ####[facility] [address] [place], [address] Bilirubin [Mass/Vol] 0.57 mg/dL Normal 0.00-1.30 [facility] Comment on above: Performed By: #### L 501.6710, L500.4050, L506.0400, L100.0100, L501.9520, L3100.5475 ####[facility] [address] [place], [address] BUN/CRE 21.1 RATIO High 10-20 [facility] Comment on above: Performed By: #### L 501.6710, L500.4050, L506.0400, L100.0100, L501.9520, L3100.5475 ####[facility] [address] [place], [address] Calcium [Mass/Vol] 9.5 mg/dL Normal 7.6-11.0 [facility] Comment on above: Performed By: #### L 501.6710, L500.4050, L506.0400, L100.0100, L501.9520, L3100.5475 ####[facility] [address] [place], [address] Chloride [Moles/Vol] 107 mmol/L Normal 98-108 [facility] Comment on above: Performed By: #### L 501.6710, L500.4050, L506.0400, L100.0100, L501.9520, L3100.5475 ####[facility] [address] [place], [address] CO2 [Moles/Vol] 25.0 mmol/L Normal 21.0-32.0 [facility] Comment on above: Performed By: #### L 501.6710, L500.4050, L506.0400, L100.0100, L501.9520, L3100.5475 ####[facility] [address] [place], [address] Creatinine [Mass/Vol] 0.87 mg/dL Normal 0.70-1.20 [facility] Comment on above: Performed By: #### L 501.6710, L500.4050, L506.0400, L100.0100, L501.9520, L3100.5475 ####[facility] [address] [place], [address] GAP 10 Normal 5-15 [facility] Comment on above: Performed By: #### L 501.6710, L500.4050, L506.0400, L100.0100, L501.9520, L3100.5475 ####[facility] [address] [place], [address] GFR/1.73 sq M.predicted among non-blacks MDRD (S/P/Bld) [Vol rate/Area] 77 mL/min/{1.73_m2} Normal >60 [facility] Comment on above: Result Comment: mL/m in/1.73m2 CKD-EPI Creatinine Equation (2020) Performed By: #### L 501.6710, L500.4050, L506.0400, L100.0100, L501.9520, L3100.5475 ####[facility] [address] [place], [address] Globulin (S) [Mass/Vol] 2.9 g/dL Normal 2.2-4.2 [facility] Comment on above: Performed By: #### L 501.6710, L500.4050, L506.0400, L100.0100, L501.9520, L3100.5475 ####[facility] [address] [place], [address] Glucose [Mass/Vol] 77 mg/dL Normal 70-99 [facility] Comment on above: Performed By: #### L 501.6710, L500.4050, L506.0400, L100.0100, L501.9520, L3100.5475 ####[facility] [address] [place], [address] Potassium [Moles/Vol] 4.1 mmol/L Normal 3.3-5.1 [facility] Comment on above: Performed By: #### L 501.6710, L500.4050, L506.0400, L100.0100, L501.9520, L3100.5475 ####[facility] [address] [place], [address] Sodium [Moles/Vol] 142 mmol/L Normal 133-145 [facility] Comment on above: Performed By: #### L 501.6710, L500.4050, L506.0400, L100.0100, L501.9520, L3100.5475 ####[facility] [address] [place], [address] T PROT 7.1 g/dL Normal 5.9-8.4 [facility] Comment on above: Performed By: #### L 501.6710, L500.4050, L506.0400, L100.0100, L501.9520, L3100.5475 ####[facility] [address] [place], [address] Urea nitrogen [Mass/Vol] 18 mg/dL Normal 4-19 [facility] Comment on above: Performed By: #### L 501.6710, L500.4050, L506.0400, L100.0100, L501.9520, L3100.5475 ####[facility] [address] [place], [address] Eosinophil percentageOrdered By: Denise Cheng on 10-31-2024 Eosinophils/100 WBC (Bld) 3.3 % 0-5 [facility] Erythrocyte distribution wid th ratioOrdered By: Denise Cheng on 10-31-2024 Erythrocyte distribution width (RBC) [Ratio] 13.2 % 11.6-14.6 [facility] Erythrocyte distribution wid th standard deviationOrdered By: Denise Cheng on 10-31-2024 Erythrocyte distribution width (RBC) [Ratio] 47.4 fl High 35.1-43.9 [facility] Glomerular filtration rate ( GFR) estimation/1.73 sq m using serum, plasma, or whole bOrdered By: Denise Cheng on 10-31-2024 GFR/1.73 sq M.predicted among non-blacks MDRD (S/P/Bld) [Vol rate/Area] 77 mL/min/{1.73_m2} >60 [facility] Comment on above: mL/min/1.73m2 CKD-EP I Creatinine Equation (2020) Hematocrit Auto (Bld) [Volum e fraction]Ordered By: Denise Cheng on 10-31-2024 Hematocrit (Bld) [Volume fraction] 43.0 % 37-47 [facility] Hemoglobin measurementOrdere d By: Denise Cheng on 10-31-2024 Hemoglobin (Bld) [Mass/Vol] 13.9 g/dL 12.0-15.0 [facility] Immature granulocytes/100 WB C Auto (Bld)Ordered By: Denise Cheng on 10-31-2024 Immature granulocytes/100 WBC (Bld) 0.200 % 0.0-0.9 [facility] Comment on above: IG% - Immature Granu locytes (promyelocytes, myelocytes and metamyelocytes) > 1% indicates that a LEFT SHIFT is Present. Laboratory - Chemistry and C hemistry - challengeOrdered By: Denise Cheng on 10-31-2024 AST [Catalytic activity/Vol] 34 U/L High <32 [facility] MCV (mean corpuscular volume ) determinationOrdered By: Denise Cheng on 10-31-2024 MCV (RBC) [Entitic vol] 97.3 fL 81-99 [facility] Mean corpuscular hemoglobin (MCH) determinationOrdered By: Denise Cheng on 10-31-2024 MCH (RBC) [Entitic mass] 31.4 pg 27.0-32.0 [facility] Mean corpuscular hemoglobin concentration (MCHC) determinationOrdered By: Denise Cheng on 10-31-2024 MCHC (RBC) [Mass/Vol] 32.3 g/dL 32-36 [facility] Mean platelet volume determi nationOrdered By: Denise Cheng on 10-31-2024 Platelet mean volume (Bld) [Entitic vol] 9.2 fL 6.2-12.0 [facility] Monocyte percentageOrdered B y: Denise Cheng on 10-31-2024 Monocytes/100 WBC (Bld) 11.5 % High 0-10 [facility] Neutrophil percentageOrdered By: Denise Cheng on 10-31-2024 Neutrophils/100 WBC (Bld) 43.6 % Low 47-70 [facility] Nucleated red blood cell per centageOrdered By: Denise Cheng on 10-31-2024 Nucleated RBC/100 WBC (Bld) [Ratio] 0 % 0-5 [facility] Platelet countOrdered By: Nadir Cheng on 10-31-2024 Platelets (Bld) [#/Vol] 259 10*3/uL 150-450 [facility] Potassium measurement (mass/ volume)Ordered By: Denise Cheng on 10-31-2024 Potassium (Unsp spec) [Mass/Vol] 4.1 mmol/L 3.3-5.1 [facility] RBC Auto (Bld) [#/Vol]Ordere d By: Denise Cheng on 10-31-2024 RBC (Bld) [#/Vol] 4.42 10*6/uL 4.2-5.4 [facility] Serum creatinine measurement (mass/volume)Ordered By: Denise Cheng on 10-31-2024 Creatinine [Mass/Vol] 0.87 mg/dL 0.70-1.20 [facility] Serum globulin measurementOr dered By: Denise Cheng on 10-31-2024 Globulin (S) [Mass/Vol] 2.9 g/dL 2.2-4.2 [facility] Serum glucose measurement (m ass/volume)Ordered By: Denise Cheng on 10-31-2024 Glucose [Mass/Vol] 77 mg/dL 70-99 [facility] Serum or plasma C reactive p rotein measurement (mass/volume)Ordered By: Denise Cheng on 10-31-2024 CRP [Mass/Vol] mg/L 0.0-3.0 [facility] Serum or plasma alanine turcios otransferase (ALT) measurementOrdered By: Denise Cheng on 10-31-2024 ALT [Catalytic activity/Vol] 44 U/L High <35 [facility] Serum or plasma albumin hannah urement (mass/volume)Ordered By: Denise Cheng on 10-31-2024 Albumin [Mass/Vol] 4.2 g/dL 3.5-5.0 [facility] Serum or plasma albumin/glob ulin mass ratioOrdered By: Denise Cheng on 10-31-2024 Albumin/Globulin [Mass ratio] 1.4 {ratio} 0.9-2.4 [facility] Serum or plasma alkaline daya sphatase measurementOrdered By: Denise Cheng on 10-31-2024 ALP [Catalytic activity/Vol] 65 U/L 35-104 [facility] Serum or plasma calcium hannah urement (mass/volume)Ordered By: Denise Cheng on 10-31-2024 Calcium [Mass/Vol] 9.5 mg/dL 7.6-11.0 [facility] Serum or plasma urea nitroge n measurement (mass/volume)Ordered By: Denise Cheng on 10-31-2024 Urea nitrogen [Mass/Vol] 18 mg/dL 4-19 [facility] Sodium levelOrdered By: Denise Cheng on 10-31-2024 Sodium [Moles/Vol] 142 mmol/L 133-145 [facility] T4 Free Directon 10-31-2024 T4 FREE DIRECT 1.10 ng/dL Normal 0.76-1.46 [facility] Comment on above: Performed By: #### L 501.6798, L500.4050, L506.0400, L100.0100, L501.9520, L3100.5499 ####[facility] [address] [place], [place], [address] T4 freeOrdered By: Denise plasencia on 10-31-2024 Free T4 [Mass/Vol] 1.10 ng/dL 0.76-1.46 [facility] TSH DL <= 0.005 mIU/L QnOrde red By: Denise Cheng on 10-31-2024 TSH Qn 2.600 uIU/mL 0.300-4.20 0 [facility] Thyroid Stim Hormone (TSH)on 10-31-2024 TSH 2.600 uIU/mL Normal 0.300-4.20 0 [facility] Comment on above: Performed By: #### L 501.6710, L500.4050, L506.0400, L100.0100, L501.9520, L3100.5475 ####[facility] [address] [place], [place], [id number] Total proteinOrdered By: Martha Cheng on 10-31-2024 Protein [Mass/Vol] 7.1 g/dL 5.9-8.4 [facility] White blood cell (WBC) count Ordered By: Denise Cheng on 10-31-2024 WBC (Bld) [#/Vol] 6.1 10*3/uL 4.4-11.0 [facility] Electrocardiogram reportOrde red By: Giancarlo Hammer on 10-02-2024 EKG study [facility] Cardiovascular Services [address] [place] [address] 12 Lead EKG 10/01/24 0723 MR#: [id number] Acct: [id number] Name: YUMIKO SINGH Rep #:[id number] : 1965 58 From: Giancarlo Hammer MD Attending Dr: Dr. Saul Bazan, Status: REG CLI Ordering Dr: Sual Bazan DO Date: 10/01/24 Location: [facility] Sex: F C Admitted: Test Reason : PREOP Blood Pressure : */* mmHG Vent. Rate : 87 BPM Atrial Rate : 87 BPM P-R Int : 136 ms QRS Dur : 68 ms QT Int : 370 ms P-R-T Axes : 62 17 56 degrees QTcB Int : 445 ms Normal sinus rhythm Normal ECG Confirmed by GIANCARLO HAMMER MD ([id number]), web editor CANDE WARREN ([id number]) on 10/02/2024 7:55:37 AM Referred By: Saul Bazan Confirmed By: GIANCARLO HAMMER MD 10/02/24754 Date _ Giancarlo Hammer MD CC: Dr. Denise Cheng MD; Dr. Saul Bazan DO ~ Signed [facility] Other Phone: 12 Lead EKGon 10-01-2024 12 Lead EKG [facility] Cardiovascular Services [address] [place] [address] 12 Lead EKG 10/01/24 0723 MR#: [id number] Acct: [id number] Name: YUMIKO SINGH Rep #: [id number] : 1965 58 From: Giancarlo Hammer MD Attending Dr: Dr. Saul Bazan, Status: REG CLI Ordering Dr: Saul Bazan DO Date: 10/01/24 Location: [facility] Sex: F C Admitted: Test Reason : PREOP Blood Pressure : */* mmHG Vent. Rate : 87 BPM Atrial Rate : 87 BPM P-R Int : 136 ms QRS Dur : 68 ms QT Int : 370 ms P-R-T Axes : 62 17 56 degrees QTcB Int : 445 ms Normal sinus rhythm Normal ECG Confirmed by GIANCARLO HAMMER MD ([id number]), web editor CANDE WARREN ([id number]) on 10/02/2024 7:55:37 AM Referred By: Saul Bazan Confirmed By: GIANCARLO HAMMER MD 10/02/24754 Date Giancarlo Hammer MD CC: Dr. Denise Cheng MD; Dr. Saul Bazan DO Signed Normal [facility] Breast imaging reportOrdered By: Cielo Ignacio on 09-04-2024 Study report [facility] Imaging [place] [address] SCRN MAMM (CAD)W/DINH BILAT MR#: [id number] Acct: [id number] Name: YUMIKO SINGH Rep #: [id number] : 1965 F 58 From: Stephane Ignacio DO PCP: Dr. Denise Cheng MD Status: REG CLI Study:SCRN MAMM (CAD)W/DINH BILAT Date of Exa m: 09/03/24 Exam# [id number] Ordering Dr: Nadir Cheng MD EXAM: PROCEDURE: [...] you for referring your patient to the [facility], if you have any questions, please call us at the performing site listed at the top of the report. [facility] , [facility] , [facility] [employer] . Reading Location: [facility] CC: Dr. Denise Cheng MD ~ Balance Wheel Motion Inspector: Signed [facility] SCRN MAMM (CAD)W/DINH BILATo n 09-03-2024 SCRN MAMM (CAD)W/DINH BILAT [facility] Imaging Services [address] [place], [place] [address] SCRN MAMM (CAD)W/DINH BILAT MR#: [id number] Acct: [id number] Name: YUMIKO SINGH Rep #: [id number] : 1965 F 58 From: Cielo Hardy PCP: Dr. Denise Cheng MD Status: REG CLI Study: SCRN MAMM (CAD)W/DINH BILAT Date of Exam: 08/11 11/03 Exam# [id number] Ordering Dr: Denise Cheng MD EXAM: PROCEDURE: [...] you for referring your patient to the [facility], if you have any questions, please call us at the performing site listed at the top of the report. [facility] , [facility] , [facility] and [email or web address] [facility] . Reading Location: [id number] CC: Dr. Denise Cheng MD Balance Wheel Motion Inspector: Signed Normal [facility] Urgent Care Visit Reporton 0 08-10-2024 Urgent Care Visit Report [facility] [address] , [address] [place], [place] [address] OFFICE VISIT Date of Service: 08/10/24 MR#: [id number] Acct: [id number] Name: YUMIKO SINGH Rep #: [id number] : 1965 Provider: ILENE Barrios Age/Sex: 58/F Location: [facility] Status: Signed Intake Vital Signs 07/28/24 12:43 [...] COUGH/ST/FEVER/CONGESTION Chief Complaint: cough, ST, fever, congest Tag Press Operator Required: No Is patient in pain?: No [...] fever, congest x 1 week without resolve. [facility] Medical History (Updated 08/10/24 @ 09:47 by [...] General: pa (more content not included)... Normal [facility] Urine Cultureon 07-31-2024 URC Mixed Gram Positive Organisms [place] Count 1000-10,000 MIXC Mixed contaminants. Submit a new specimen if indicated. Normal [facility] Comment on above: Performed By: #### M 100.2200 ####[facility] [address] [place], [address] Urine cultureOrdered By: Dawson Cordova on 07-29-2024 Bacteria identified Cx Nom (U) Positive Abnormal [facility] Laboratory - Chemistry and C hemistry - challengeOrdered By: Adilson Cordova on 07-28-2024 Bilirubin Ql (U) Negative [facility] Glucose Ql (U) Negative [facility] Ketones Ql (U) Negative [facility] pH (U) 5.0 [pH] [facility] Specific gravity (U) [Rel density] 1.005 [facility] Urobilinogen (U) [Mass/Vol] Negative [facility] Laboratory - Hematology and Cell countsOrdered By: Adilson Cordova on 07-28-2024 Hemoglobin Ql (U) Moderate [facility] Laboratory - Specimen inform ationOrdered By: Adilson Cordova on 07-28-2024 Clarity (U) Cloudy [facility] Color (U) JHONY [facility] Laboratory - UrinalysisOrder ed By: Adilson Cordova on 07-28-2024 Nitrite Ql (U) Negative [facility] Protein Ql (U) Trace [facility] No Panel InformationOrdered By: Adilson Cordova on 07-28-2024 Urine Leukocytes Positive [facility] Urine Non-Hemolyzed Blood Non-Hemolyzed [facility] Visit Reporton 0 07-28-2024 Urgent Care Visit Report [facility] [address], [address] [place], [place] [address] OFFICE VISIT Date of Service: 07/28/24 MR#: [id number] Acct: [id number] Name: YUMIKO SINGH Rep #: [id number] : 1965 Provider: ILENE fenton Age/Sex: 58/F Location: [facility] Status: Signed Intake Vital Signs 04/03/23 07:23 [...] Patino on 07/28/24 13:20 Off Ur Spec Hixson 1.005 Last Edit by Sheri Patino on 07/28/24 13:20 Office Urine pH 5.0 Last Edit by Sheri Patino on 07/28/24 1 (more content not included)... Normal [facility] Visit Reporton 06-15-2023 Urgent Care Visit Report [facility] [address], [address] [place] [address] OFFICE VISIT Date of Service: 04/15/24 MR#: [id number] Acct: [id number] Name: YUMIKO SINGH Rep #: [id number] : 1965 Provider: SHAHRAM Escudero Age/Sex: 58/F Location: [facility] Status: Signed Intake Vital Signs 04/03/23 07:23 04/15/24 07:11 Height 5 ft 9 in BP 130/76 H Blood Pressure Location Lt brachial Position Sitting Respiration 16 Pulse 102 H Pulse Source NIBP Temp 98.2 F Temp Source Oral Pulse Oximetry (%) 94 Oxygen Delivery Method room air Intake Visit Reasons: COUGH/CONGESTION Chief Complaint: cough,congest, grn mucus, face pain Tag Press Operator Required: No Is patient in pain?: No [...] pain x 2 weeks. declines viral testing. [facility] Medical History (Updated 06/13/23 @ 13:34 by [...] Rate: tachycardi (more content not included)... Normal [facility] PROGESTERONE 4317on 16-20 24 PROGESTERONE <0.1 Normal . [facility] Comment on above: Order Comment: N Result Comment: Foll icular phase 0.1 - 0.9 Luteal phase 1.8 - 23.9 Ovulation phase 0.1 - 12.0 First trimester 11.0 - 44.3 Second trimester 25.4 - 83.3 Third trimester 58.7 - 214.0 Postmenopausal 0.0 - 0.1 Performed at: [address] [id number] Vice President Of Talent Acquisition: Dominick De La Rosa PhD, Phone: [phone] Performed By: #### L 801.2600, L3300.1750 ####[facility] [address] [place], [address] CBC W/Diff, Automatedon 01-10 Absolute Lymph 3.15 X10 3/uL Normal 0.83-4.51 [facility] Comment on above: Order Comment: Order Date: 01/23/24 Order Info: 0184-1 - CBCD Performed By: #### L 500.4100, L501.9985, L500.4050, L506.0400, L501.9520, L100.0100 #### [facility] [address] [place], [place], [address] (012) Absolute Neut 5.8 X10 3/uL Normal 2.0-7.7 [facility] Comment on above: Order Comment: Order Date: 01/23/24 Order Info: 0184-1 - CBCD Performed By: #### L 500.4100, L501.9985, L500.4050, L506.0400, L501.9520, L100.0100 #### [facility] [address] [place], [address] Basophils/100 WBC (Bld) 0.3 % Normal 0-1 [facility] Comment on above: Order Comment: Order Date: 01/23/24 Order Info: 0184-1 - CBCD Performed By: #### L 500.4100, L501.9985, L500.4050, L506.0400, L501.9520, L100.0100 #### [facility] [address] [place], [place], [address] (831) Eosinophils/100 WBC (Bld) 0.3 % Normal 0-5 [facility] Comment on above: Order Comment: Order Date: 01/23/24 Order Info: 0184-1 - CBCD Performed By: #### L 500.4100, L501.9985, L500.4050, L506.0400, L501.9520, L100.0100 #### [facility] [address] [place], [address] Erythrocyte distribution width (RBC) [Ratio] 14.3 % Normal 11.6-14.6 [facility] Comment on above: Order Comment: Order Date: 01/23/24 Order Info: 0184-1 - CBCD Performed By: #### L 500.4100, L501.9985, L500.4050, L506.0400, L501.9520, L100.0100 #### [facility] [address] [place], [address] Hematocrit (Bld) [Volume fraction] 40.1 % Normal 37-47 [facility] Comment on above: Order Comment: Order Date: 01/23/24 Order Info: 0184-1 - CBCD Performed By: #### L 500.4100, L501.9985, L500.4050, L506.0400, L501.9520, L100.0100 #### [facility] [address] [place], [address] Hemoglobin (Bld) [Mass/Vol] 13.0 g/dL Normal 12.0-15.0 [facility] Comment on above: Order Comment: Order Date: 01/23/24 Order Info: 0184-1 - CBCD Performed By: #### L 500.4100, L501.9985, L500.4050, L506.0400, L501.9520, L100.0100 #### [facility] [address] [place], [address] IG% 0.200 Normal 0.0-0.9 [facility] Comment on above: Order Comment: Order Date: 01/23/24 Order Info: 0184-1 - CBCD Result Comment: IG% - Immature Granulocytes (promyelocytes, myelocytes and metamyelocytes) > 1% indicates that a LEFT SHIFT is Present. Performed By: #### L 500.4100, L501.9985, L500.4050, L506.0400, L501.9520, L100.0100 #### [facility] [address] [place], [address] Lymphocytes/100 WBC (Bld) 31.7 % Normal 19-41 [facility] Comment on above: Order Comment: Order Date: 01/23/24 Order Info: 0184- - CBCD Performed By: #### L 500.4100, L501.9985, L500.4050, L506.0400, L501.9520, L100.0100 #### [facility] [address] [place], [address] MCH (RBC) [Entitic mass] 32.2 pg High 27.0-32.0 [facility] Comment on above: Order Comment: Order Date: 01/23/24 Order Info: 0184- - CBCD Performed By: #### L 500.4100, L501.9985, L500.4050, L506.0400, L501.9520, L100.0100 #### [facility] [address] [place], [address] MCHC (RBC) [Mass/Vol] 32.4 g/dL Normal 32-36 [facility] Comment on above: Order Comment: Order Date: 01/23/24 Order Info: 0184-1 - CBCD Performed By: #### L 500.4100, L501.9985, L500.4050, L506.0400, L501.9520, L100.0100 #### [facility] [address] [place], [address] MCV (RBC) [Entitic vol] 99.3 fL High 81-99 [facility] Comment on above: Order Comment: Order Date: 01/23/24 Order Info: 0184-1 - CBCD Performed By: #### L 500.4100, L501.9985, L500.4050, L506.0400, L501.9520, L100.0100 #### [facility] [address] [place], [address] Monocytes/100 WBC (Bld) 9.5 % Normal 0-10 [facility] Comment on above: Order Comment: Order Date: 01/23/24 Order Info: 0184- - CBCD Performed By: #### L 500.4100, L501.9985, L500.4050, L506.0400, L501.9520, L100.0100 #### [facility] [address] [place], [address] Neutrophils/100 WBC (Bld) 58.0 % Normal 47-70 [facility] Comment on above: Order Comment: Order Date: 01/23/24 Order Info: 0184- - CBCD Performed By: #### L 500.4100, L501.9985, L500.4050, L506.0400, L501.9520, L100.0100 #### [facility] [address] [place], [address] Nucleated RBC (Bld) [#/Vol] 0 10*3/uL Normal 0-5 [facility] Comment on above: Order Comment: Order Date: 01/23/24 Order Info: 0184-1 - CBCD Performed By: #### L 500.4100, L501.9985, L500.4050, L506.0400, L501.9520, L100.0100 #### [facility] [address] [place], [address] Platelet mean volume (Bld) [Entitic vol] 9.1 fL Normal 6.2-12.0 [facility] Comment on above: Order Comment: Order Date: 01/23/24 Order Info: 0184-1 - CBCD Performed By: #### L 500.4100, L501.9985, L500.4050, L506.0400, L501.9520, L100.0100 #### [facility] [address] [place], [address] Platelets (Bld) [#/Vol] 343 10*3/uL Normal 150-450 [facility] Comment on above: Order Comment: Order Date: 01/23/24 Order Info: 0184-1 - CBCD Performed By: #### L 500.4100, L501.9985, L500.4050, L506.0400, L501.9520, L100.0100 #### [facility] [address] [place], [address] RBC (Bld) [#/Vol] 4.04 10*6/uL Low 4.2-5.4 [facility] Comment on above: Order Comment: Order Date: 01/23/24 Order Info: 0184-1 - CBCD Performed By: #### L 500.4100, L501.9985, L500.4050, L506.0400, L501.9520, L100.0100 #### [facility] [address] [place], [address] RDW SD 51.9 fl High 35.1-43.9 [facility] Comment on above: Order Comment: Order Date: 01/23/24 Order Info: 0184-1 - CBCD Performed By: #### L 500.4100, L501.9985, L500.4050, L506.0400, L501.9520, L100.0100 #### [facility] [address] [place], [address] WBC (Bld) [#/Vol] 9.9 10*3/uL Normal 4.4-11.0 [facility] Comment on above: Order Comment: Order Date: 01/23/24 Order Info: 0184-1 - CBCD Performed By: #### L 500.4100, L501.9985, L500.4050, L506.0400, L501.9520, L100.0100 #### [facility] [address] [place], [address] Comprehensive Metabolic Prof ilon 01-25-2024 Albumin [Mass/Vol] 3.6 g/dL Normal 3.2-5.0 [facility] Comment on above: Order Comment: Order Date: 01/23/24 Order Info: 07-1 - CMP Order Info: [id number] - LIPID Order Info: 6-3 - TSH Order Info: 3024-7 - T4F N Performed By: #### L 500.4100, L501.9985, L500.4050, L506.0400, L501.9520, L100.0100 #### [facility] [address] [place], [address] Albumin/Globulin [Mass ratio] 1.0 {ratio} Normal 0.9-2.4 [facility] Comment on above: Order Comment: Order Date: 01/23/24 Order Info: 0786- - CMP Order Info: [id number] - LIPID Order Info: 3016-3 - TSH Order Info: 3024-7 - T4F N Performed By: #### L 500.4100, L501.9985, L500.4050, L506.0400, L501.9520, L100.0100 #### [facility] [address] [place], [address] ALK P 62 U/L Normal 45-117 [facility] Comment on above: Order Comment: Order Date: 01/23/24 Order Info: 0786-1 - CMP Order Info: [id number] - LIPID Order Info: 3016-3 - TSH Order Info: 3024-7 - T4F N Performed By: #### L 500.4100, L501.9985, L500.4050, L506.0400, L501.9520, L100.0100 #### [facility] [address] [place], [address] ALT [Catalytic activity/Vol] 30 U/L Normal 13-56 [facility] Comment on above: Order Comment: Order Date: 01/23/24 Order Info: 0786-1 - CMP Order Info: 78826-5 - LIPID Order Info: 3016-3 - TSH Order Info: 3024-7 - T4F N Performed By: #### L 500.4100, L501.9985, L500.4050, L506.0400, L501.9520, L100.0100 #### [facility] [address] [place], [address] AST [Catalytic activity/Vol] 15 U/L Normal 15-37 [facility] Comment on above: Order Comment: Order Date: 01/23/24 Order Info: 86-1 - CMP Order Info: [id number] - LIPID Order Info: 6-3 - TSH Order Info: 3024-7 - T4F N Performed By: #### L 500.4100, L501.9985, L500.4050, L506.0400, L501.9520, L100.0100 #### [facility] [address] [place], [address] Bilirubin [Mass/Vol] 0.80 mg/dL Normal 0.20-1.00 [facility] Comment on above: Order Comment: Order Date: 01/23/24 Order Info: 0786-1 - CMP Order Info: [id number] - LIPID Order Info: 3016-3 - TSH Order Info: 3024-7 - T4F N Result Comment: For patients on eltrombopag therapy, use of Dimension [place] TBIL is not recommended. Performed By: #### L 500.4100, L501.9985, L500.4050, L506.0400, L501.9520, L100.0100 #### [facility] [address] [place], [address] BUN/CRE 28.9 RATIO High 10-20 [facility] Comment on above: Order Comment: Order Date: 01/23/24 Order Info: 0786-1 - CMP Order Info: [id number] - LIPID Order Info: 3016-3 - TSH Order Info: 3024-7 - T4F N Performed By: #### L 500.4100, L501.9985, L500.4050, L506.0400, L501.9520, L100.0100 #### [facility] [address] [place], [address] CA,Total 9.0 mg/dL Normal 8.5-10.1 [facility] Comment on above: Order Comment: Order Date: 01/23/24 Order Info: 785-1 - CMP Order Info: [id number] - LIPID Order Info: 3 - TSH Order Info: 3024-7 - T4F N Performed By: #### L 500.4100, L501.9985, L500.4050, L506.0400, L501.9520, L100.0100 #### [facility] [address] [place], [address] Chloride [Moles/Vol] 109 mmol/L High 98-107 [facility] Comment on above: Order Comment: Order Date: 01/23/24 Order Info: 0786-1 - CMP Order Info: [id number] - LIPID Order Info: 3016-3 - TSH Order Info: 3024-7 - T4F N Performed By: #### L 500.4100, L501.9985, L500.4050, L506.0400, L501.9520, L100.0100 #### [facility] [address] [place], [address] CO2 [Moles/Vol] 26.0 mmol/L Normal 21.0-32.0 [facility] Comment on above: Order Comment: Order Date: 01/23/24 Order Info: 0786-1 - CMP Order Info: [id number] - LIPID Order Info: 3015-08 - TSH Order Info: 3023-12 - T4F N Performed By: #### L 500.4100, L501.9985, L500.4050, L506.0400, L501.9520, L100.0100 #### [facility] [address] [place], [address] Creatinine [Mass/Vol] 0.90 mg/dL Normal 0.55-1.02 [facility] Comment on above: Order Comment: Order Date: 01/23/24 Order Info: 785-06 - CMP Order Info: - LIPID Order Info: 3015-08 - TSH Order Info: 3023-12 T4F N Result Comment: The validity of the calculated GFR GFRAA in patients over 70 years has not been determined. Clinical correlation is essential. Performed By: #### L 500.4100, L501.9985, L500.4050, L506.0400, L501.9520, L100.0100 #### [facility] [address] [place], [address] EST GFR - AA 83 mL/min Normal >60 [facility] Comment on above: Order Comment: Order Date: 01/23/24 Order Info: 785-06 - CMP Order Info: - LIPID Order Info: 3015-08 - TSH Order Info: 3023-12 - T4F N Result Comment: Afri can Ugandan GFR Calc Performed By: #### L 500.4100, L501.9985, L500.4050, L506.0400, L501.9520, L100.0100 #### [facility] [address] [place], [address] GAP 7 Normal 5-15 [facility] Comment on above: Order Comment: Order Date: 01/23/24 Order Info: 07 - CMP Order Info: [id number] - LIPID Order Info: 3015-08 - TSH Order Info: 3023-12 - T4F N Performed By: #### L 500.4100, L501.9985, L500.4050, L506.0400, L501.9520, L100.0100 #### [facility] [address] [place], [address] GFR/1.73 sq M.predicted among non-blacks MDRD (S/P/Bld) [Vol rate/Area] 68 mL/min/{1.73_m2} Normal >60 [facility] Comment on above: Order Comment: Order Date: 01/23/24 Order Info: 785- - CMP Order Info: - LIPID Order Info: 3 - TSH Order Info: 7 - T4F N Result Comment: Non- GFR Calc Performed By: #### L 500.4100, L501.9985, L500.4050, L506.0400, L501.9520, L100.0100 #### [facility] [address] [place], [address] Globulin (S) [Mass/Vol] 3.6 g/dL Normal 2.2-4.2 [facility] Comment on above: Order Comment: Order Date: 01/23/24 Order Info: 785-06 - CMP Order Info: - LIPID Order Info: 3 - TSH Order Info: 3024-7 - T4F N Performed By: #### L 500.4100, L501.9985, L500.4050, L506.0400, L501.9520, L100.0100 #### [facility] [address] [place], [address] Glucose [Mass/Vol] 93 mg/dL Normal 74-106 [facility] Comment on above: Order Comment: Order Date: 01/23/24 Order Info: 785-06 - CMP Order Info: [id number] - LIPID Order Info: 3 - TSH Order Info: 3024-7 - T4F N Performed By: #### L 500.4100, L501.9985, L500.4050, L506.0400, L501.9520, L100.0100 #### [facility] [address] [place], [address] Potassium [Moles/Vol] 3.6 mmol/L Normal 3.5-5.1 [facility] Comment on above: Order Comment: Order Date: 01/23/24 Order Info: 86-1 - CMP Order Info: [id number] - LIPID Order Info: 3016-3 - TSH Order Info: 3024-7 - T4F N Performed By: #### L 500.4100, L501.9985, L500.4050, L506.0400, L501.9520, L100.0100 #### [facility] [address] [place], [address] Sodium [Moles/Vol] 142 mmol/L Normal 136-145 [facility] Comment on above: Order Comment: Order Date: 01/23/24 Order Info: 785- - CMP Order Info: [id number] - LIPID Order Info: 3016-3 - TSH Order Info: 3024-7 - T4F N Performed By: #### L 500.4100, L501.9985, L500.4050, L506.0400, L501.9520, L100.0100 #### [facility] [address] [place], [address] T PROT 7.2 g/dL Normal 6.4-8.2 [facility] Comment on above: Order Comment: Order Date: 01/23/24 Order Info: 0786-1 - CMP Order Info: [id number] - LIPID Order Info: 3016-3 - TSH Order Info: 3024-7 - T4F N Performed By: #### L 500.4100, L501.9985, L500.4050, L506.0400, L501.9520, L100.0100 #### [facility] [address] [place], [address] Urea nitrogen [Mass/Vol] 26 mg/dL High 7-18 [facility] Comment on above: Order Comment: Order Date: 01/23/24 Order Info: 0786-1 - CMP Order Info: [id number] - LIPID Order Info: 3016-3 - TSH Order Info: 3024-7 - T4F N Performed By: #### L 500.4100, L501.9985, L500.4050, L506.0400, L501.9520, L100.0100 #### [facility] [address] [place], [place], [address] Estradiolon 01-25-2024 ESTRADIOL < 11.0 Normal [facility] Comment on above: Order Comment: Order Date: 01/23/24Order Info: 0786-1 - CMPOrder Info: [id number] - LIPIDOrder Info: 3016-3 - TSHOrder Info: [...] CONCENTRATION. Performed By: #### L 801.2600, L3300.1750 ####[facility] [address] [place], [place], [address] Hemoglobin A1con 01-25-2024 HbA1c (Bld) [Mass fraction] 5.2 % Normal 3.8-5.6 [facility] Comment on above: Order Comment: Order Date: 01/23/24 Order Info: 4548-4 - A1C Result Comment: Norm al < 5.7 % Prediabetic 5.7 - 6.4 % Diabetic >or= 6.5 % Please note range changes. Performed By: #### L 500.4100, L501.9985, L500.4050, L506.0400, L501.9520, L100.0100 #### [facility] [address] [place], [address] Lipid Profileon 01-25-2024 Cholesterol [Mass/Vol] 194 mg/dL Normal 200 [facility] Comment on above: Order Comment: Order Date: 01/23/24 Order Info: 0786-1 - CMP Order Info: 13727-2 - LIPID Order Info: 3 - TSH Order Info: 7 - T4F N Result Comment: <200 mg/dL Desirable 200-240 mg/dL Borderline >240 mg/dL High Risk Performed By: #### L 500.4100, L501.9985, L500.4050, L506.0400, L501.9520, L100.0100 #### [facility] [address] [place], [address] Cholesterol in HDL [Mass/Vol] 54 mg/dL Normal [facility] Comment on above: Order Comment: Order Date: [...] 500.4100, L501.9985, L500.4050, L506.0400, L501.9520, L100.0100 #### [facility] [address] [place], [address] Cholesterol in LDL [Mass/Vol] 119 mg/dL Normal 0-130 [facility] Comment on above: Order Comment: Order Date: 01/23/24 Order Info: 0786-1 - CMP Order Info: 15943-1 - LIPID Order Info: 3 - TSH Order Info: 7 - T4F N Performed By: #### L 500.4100, L501.9985, L500.4050, L506.0400, L501.9520, L100.0100 #### [facility] [address] [place], [address] Cholesterol in VLDL [Mass/Vol] 21 mg/dL Normal 5-40 [facility] Comment on above: Order Comment: Order Date: 01/23/24 Order Info: 785- - CMP Order Info: - LIPID Order Info: 3 - TSH Order Info: 7 - T4F N Performed By: #### L 500.4100, L501.9985, L500.4050, L506.0400, L501.9520, L100.0100 #### [facility] [address] [place], [address] Triglyceride [Mass/Vol] 103 mg/dL Normal [facility] Comment on above: Order Comment: Order [...] 500.4100, L501.9985, L500.4050, L506.0400, L501.9520, L100.0100 #### [facility] [address] [place], [address] T4 Free Directon 01-25-2024 T4 FREE DIRECT 0.80 ng/dL Normal 0.76-1.46 [facility] Comment on above: Order Comment: Order Date: 01/23/24 Order Info: 07 - CMP Order Info: [id number] - LIPID Order Info: [id number] - TSH Order Info: 7 - T4F N Performed By: #### L 500.4100, L501.9985, L500.4050, L506.0400, L501.9520, L100.0100 #### [facility] [address] [place], [address] Thyroid Stim Hormone (TSH)on 01-25-2024 TSH 1.560 uIU/mL Normal 0.358-3.74 0 [facility] Comment on above: Order Comment: Order Date: 01/23/24 Order Info: 0786-1 - CMP Order Info: [id number] - LIPID Order Info: 3016-3 - TSH Order Info: 3024-7 - T4F N Performed By: #### L 500.4100, L501.9985, L500.4050, L506.0400, L501.9520, L100.0100 #### [facility] [address] [place], [address] L/S Spine Min 4 Viewson 11-10 L/S Spine Min 4 Views [facility] [address] [place] [address] L/S Spine Min 4 Views MR#: [id number] Acct: [id number] Name: YUMIKO SINGH Rep #: [id number] : 1965 F 58 From: Ba Hernandez MD PCP: Dr. Denise Cheng MD Status: REG CLI Study: L/S Spine Min 4 Views Date of Exam: 11/29/23 Exam# [id number] Ordering Dr: Wagner Whitten DPLashae [id number] STUDY: X-RAY - LUMBAR SPINE REASON FOR [...] 14:47 EDT Reading Location ID and State: [id number] [place] [address] , Service support , CC: FREEMAN Whitten; Dr. Denise Cheng MD Balance Wheel Motion Inspector: Signed Normal [facility] Basophil percentageOrdered B y: Ciera Stathopoulrobbi on 06-09-2023 Bilirubin [Mass/Vol] 0.80 mg/dL 0.20-1.00 [facility] Comment on above: For patients on eltr ombopag therapy, use of Dimension [place] TBIL is not recommended. Chloride [Moles/Vol] 107 mmol/L 98-107 [facility] Cholesterol [Mass/Vol] 185 mg/dL <200 [facility] Comment on above: <200 mg/dL Desirable 200-240 mg/dL Borderline >240 mg/dL High Risk Glucose [Mass/Vol] 108 mg/dL 74-106 [facility] Comment on above: Fasting Glucose resu lt from 100 to 125 mg/dL suggests IMPAIRED HOMEOSTASIS per A.D.A. criteria. Potassium [Moles/Vol] 4.1 mmol/L 3.5-5.1 [facility] Protein [Mass/Vol] 7.1 g/dL 6.4-8.2 [facility] Sodium [Moles/Vol] 141 mmol/L 136-145 [facility] Triglyceride [Mass/Vol] 441 mg/dL <199 [facility] Comment on above: The drugs N-Acetylcy [...] 06-09-2023 ALP [Catalytic activity/Vol] 70 U/L 45-117 [facility] ALT [Catalytic activity/Vol] 44 U/L 13-56 [facility] CO2 [Moles/Vol] 28.0 mmol/L 21.0-32.0 [facility] Globulin (S) [Mass/Vol] 3.3 g/dL 2.2-4.2 [facility] Urea nitrogen/Creatinine [Mass ratio] 27.5 mg/mg 10-20 [facility] No Panel InformationOrdered By: iCera Granados on 06-09-2023 Estimated GFR (MDRD) Amer 100 mL/min >60 [facility] Comment on above: GFR Calc Estimated GFR (MDRD) Non-Af Amer 83 mL/min >60 [facility] Comment on above: Non- GFR Calc Vitamin D 25-Hydroxy 34.9 ng/mL [facility] Comment on above: Vitamin D 25(OH) Sta tus Range Deficiency <20 ng/mL (50nmol/L) Insufficiency 20 - 30 ng/mL (50 - 75 nmol/L) Sufficiency 30 - 100 ng/mL (75 - 250 nmol/L) Toxicity >100 ng/mL (>250 nmol/L) Serum or plasma albumin hannah urement (mass/volume)Ordered By: Ciera Granados on 06-09-2023 Albumin [Mass/Vol] 3.8 g/dL 3.2-5.0 [facility] Serum or plasma albumin/glob ulin mass ratioOrdered By: Ciera [facility] on 06-09-2023 Albumin/Globulin [Mass ratio] 1.2 {ratio} 0.9-2.4 [facility] Serum or plasma calcium hannah urement (mass/volume)Ordered By: [facility]iera [facility] on 06-09-2023 Calcium [Mass/Vol] 8.7 mg/dL 8.5-10.1 [facility] Serum or plasma cholesterol in HDL measurement (mass/volume)Ordered By: Ciera Granados on 06-09-2023 Cholesterol in HDL [Mass/Vol] 29 mg/dL >40 [facility] Comment on above: The drugs N-Acetylcy steine and Metamizole may falsely depress this assay. Reference Range HDL <40 mg/dL Low HDL Cholesterol HDL >or= 60 mg/dL High HDL Cholesterol Serum or plasma cholesterol in VLDL measurement (mass/volume)Ordered By: Ciera Granados on 06-09-2023 Cholesterol in VLDL [Mass/Vol] [facility] Comment on above: Test not performed Serum or plasma creatinine m easurement (mass/volume)Ordered By: Ciera Granados on 06-09-2023 Creatinine [Mass/Vol] 0.76 mg/dL 0.55-1.02 [facility] Comment on above: The validity of the calculated GFR & GFRAA in patients over 70 years has not been determined. Clinical correlation is essential. Serum or plasma low density lipoprotein (LDL) cholesterol measurement (mass/volume)Ordered By: Ciera Granados on 06-09-2023 Cholesterol in LDL [Mass/Vol] [facility] Comment on above: Test not performed Serum or plasma urea nitroge n measurement (mass/volume)Ordered By: Ciera Granados on 06-09-2023 Urea nitrogen [Mass/Vol] 21 mg/dL 7-18 [facility] Thin prep Papanicolaou smear with manual screeningOrdered By: Ciera Granados on 06-09-2023 Thin prep Papanicolaou smear with manual screening 35 U/L 15-37 [facility] Thin prep Papanicolaou smear with manual screening 6 5-15 [facility] Whole blood hemoglobin A1c/t otal hemoglobin ratio (mass fraction)Ordered By: Ciera Granados on 06-09-2023 HbA1c (Bld) [Mass fraction] 5.1 % 3.8-5.6 [facility] Comment on above: Normal < 5.7 % Predi abetic 5.7 - 6.4 % Diabetic >or= 6.5 % Please note range changes. No Panel Informationon 04-03 [facility] YUMIKO SINGH ([id number]) 1965 F Date Time Provider Department 02/01/23 [...] for c (more content not included)... Normal [facility] XR FOOT 3V AP/LAT/OBL BILon 02-01-2023 [...] tissue swelling. IMPRESSION: Bilateral plantar calcaneal spurs Balance Wheel Motion Inspector: PSCB Transcribe Date/Time: Feb 04 2023 6:38P Dictated by : HECTOR DOMÍNGUEZ MD This examination was interpreted and the report reviewed and electronically signed by: HECTOR DOMÍNGUEZ MD on Feb 04 2023 6:39PM EST [id number] Normal [facility] XR FOOT GENERAL 3V AP/LAT/OB L BILATERALon 02-01-2023 [facility] Absolute lymphocyte countOrd ered By: Cecilio Lopez on 01-12-2023 Lymphocytes Auto (Unsp spec) [#/Vol] 2.95 10*3/uL 0.83-4.51 [facility] Basophil percentageOrdered B y: Cecilio Lopez on 01-12-2023 Basophils/100 WBC (Bld) 1.0 % 0-1 [facility] Bilirubin [Mass/Vol] 1.10 mg/dL 0.20-1.00 [facility] Comment on above: For patients on eltr ombopag therapy, use of Dimension [place] TBIL is not recommended. Chloride [Moles/Vol] 106 mmol/L 98-107 [facility] Eosinophils/100 WBC (Bld) 3.6 % 0-5 [facility] Glucose [Mass/Vol] 103 mg/dL 74-106 [facility] Comment on above: Fasting Glucose resu lt from 100 to 125 mg/dL suggests IMPAIRED HOMEOSTASIS per A.D.A. criteria. LDH [Catalytic activity/Vol] 165 U/L 84-246 [facility] Neutrophils (Bld) [#/Vol] 3.3 10*3/uL 2.0-7.7 [facility] Neutrophils/100 WBC (Bld) 45.2 % 47-70 [facility] Potassium [Moles/Vol] 3.7 mmol/L 3.5-5.1 [facility] Protein [Mass/Vol] 7.2 g/dL 6.4-8.2 [facility] Sodium [Moles/Vol] 142 mmol/L 136-145 [facility] WBC (Bld) [#/Vol] 7.2 10*3/uL 4.4-11.0 [facility] Blood erythrocytes count (nu mber/volume)Ordered By: Cecilio Lopez on 01-12-2023 RBC (Bld) [#/Vol] 4.13 10*6/uL 4.2-5.4 [facility] Blood hemoglobin measurement (mass/volume)Ordered By: Cecilio Lopez on 01-12-2023 Hemoglobin (Bld) [Mass/Vol] 13.7 g/dL 12.0-15.0 [facility] Blood lymphocytes/100 leukoc ytesOrdered By: Cecilio Lopez on 01-12-2023 Lymphocytes/100 WBC (Bld) 40.8 % 19-41 [facility] Blood monocytes/100 leukocyt esOrdered By: Cecilio Lopez on 01-12-2023 Monocytes/100 WBC (Bld) 9.3 % 0-10 [facility] Blood platelet mean volumeOr dered By: Cecilio Lopez on 01-12-2023 Platelet mean volume (Bld) [Entitic vol] 8.9 fL 6.2-12.0 [facility] Determination of erythrocyte mean corpuscular volume (MCV)Ordered By: Cecilio Lopez on 01-12-2023 MCV (RBC) [Entitic vol] 96.9 fL 81-99 [facility] Hematocrit Auto (Bld) [Volum e fraction]Ordered By: Cecilio Lopez on 01-12-2023 Hematocrit (Bld) [Volume fraction] 40.0 % 37-47 [facility] Laboratory - Chemistry and C hemistry - challengeOrdered By: [facility] on 01-12-2023 ALP [Catalytic activity/Vol] 67 U/L 45-117 [facility] ALT [Catalytic activity/Vol] 42 U/L 13-56 [facility] CO2 [Moles/Vol] 29.0 mmol/L 21.0-32.0 [facility] Globulin (S) [Mass/Vol] 3.4 g/dL 2.2-4.2 [facility] Urea nitrogen/Creatinine [Mass ratio] 15.9 mg/mg 10-20 [facility] Laboratory - Hematology and Cell countsOrdered By: Cecilio Lopez on 01-12-2023 Erythrocyte distribution width (RBC) [Entitic vol] 49.1 fL 35.1-43.9 [facility] Erythrocyte distribution width (RBC) [Ratio] 13.7 % 11.6-14.6 [facility] Immature granulocytes/100 WBC (Bld) 0.100 % 0.0-0.9 [facility] Comment on above: IG% - Immature Granu locytes (promyelocytes, myelocytes and metamyelocytes) > 1% indicates that a LEFT SHIFT is Present. MCH (RBC) [Entitic mass] 33.2 pg 27.0-32.0 [facility] Nucleated RBC/100 WBC (Bld) [Ratio] 0 % 0-5 [facility] MCHC Auto (RBC) [Mass/Vol]Or dered By: Cecilio Lopez on 01-12-2023 MCHC (RBC) [Mass/Vol] 34.3 g/dL 32-36 [facility] No Panel InformationOrdered By: Cecilio Lopez on 01-12-2023 Estimated GFR (MDRD) Amer 85 mL/min >60 [facility] Comment on above: GFR Calc Estimated GFR (MDRD) Non-Af Amer 70 mL/min >60 [facility] Comment on above: Non- GFR Calc Platelets bldOrdered By: Damion Lopez on 01-12-2023 Platelets (Bld) [#/Vol] 296 10*3/uL 150-450 [facility] Serum or plasma albumin hannah urement (mass/volume)Ordered By: Cecilio Lopez on 01-12-2023 Albumin [Mass/Vol] 3.8 g/dL 3.2-5.0 [facility] Serum or plasma albumin/glob ulin mass ratioOrdered By: Cecilio Lopez on 01-12-2023 Albumin/Globulin [Mass ratio] 1.1 {ratio} 0.9-2.4 [facility] Serum or plasma calcium hannah urement (mass/volume)Ordered By: Cecilio Lopez on 01-12-2023 Calcium [Mass/Vol] 9.3 mg/dL 8.5-10.1 [facility] Serum or plasma creatinine m easurement (mass/volume)Ordered By: Cecilio Lopez on 01-12-2023 Creatinine [Mass/Vol] 0.88 mg/dL 0.55-1.02 [facility] Comment on above: The validity of the calculated GFR & GFRAA in patients over 70 years has not been determined. Clinical correlation is essential. Serum or plasma urea nitroge n measurement (mass/volume)Ordered By: Cecilio Lopez on 01-12-2023 Urea nitrogen [Mass/Vol] 14 mg/dL 7-18 [facility] Thin prep Papanicolaou smear with manual screeningOrdered By: Cecilio Lopez on 01-12-2023 Thin prep Papanicolaou smear with manual screening 27 U/L 15-37 [facility] Thin prep Papanicolaou smear with manual screening 7 5-15 [facility] Absolute lymphocyte countOrd ered By: Dr. Cheng on 11-09-2022 Lymphocytes Auto (Unsp spec) [#/Vol] 2.89 10*3/uL 0.83-4.51 [facility] Basophil percentageOrdered B y: Dr. Cheng on 11-09-2022 Basophils/100 WBC (Bld) 0.9 % 0-1 [facility] Bilirubin [Mass/Vol] 0.70 mg/dL 0.20-1.00 [facility] Comment on above: For patients on eltr ombopag therapy, use of Dimension [place] TBIL is not recommended. Chloride [Moles/Vol] 107 mmol/L 98-107 [facility] Eosinophils/100 WBC (Bld) 2.8 % 0-5 [facility] Glucose [Mass/Vol] 109 mg/dL 74-106 [facility] Comment on above: Fasting Glucose resu lt from 100 to 125 mg/dL suggests IMPAIRED HOMEOSTASIS per A.D.A. criteria. Neutrophils (Bld) [#/Vol] 2.9 10*3/uL 2.0-7.7 [facility] Neutrophils/100 WBC (Bld) 42.5 % 47-70 [facility] Potassium [Moles/Vol] 4.2 mmol/L 3.5-5.1 [facility] Protein [Mass/Vol] 7.3 g/dL 6.4-8.2 [facility] Sodium [Moles/Vol] 139 mmol/L 136-145 [facility] WBC (Bld) [#/Vol] 6.8 10*3/uL 4.4-11.0 [facility] Blood erythrocytes count (nu mber/volume)Ordered By: Dr. Cheng on 11-09-2022 RBC (Bld) [#/Vol] 4.36 10*6/uL 4.2-5.4 [facility] Blood hemoglobin measurement (mass/volume)Ordered By: Dr. Cheng on 11-09-2022 Hemoglobin (Bld) [Mass/Vol] 13.8 g/dL 12.0-15.0 [facility] Blood lymphocytes/100 leukoc ytesOrdered By: Dr. Cheng on 11-09-2022 Lymphocytes/100 WBC (Bld) 42.5 % 19-41 [facility] Blood monocytes/100 leukocyt esOrdered By: Dr. Cheng on 11-09-2022 Monocytes/100 WBC (Bld) 11.2 % 0-10 [facility] Blood platelet mean volumeOr dered By: Dr. Cheng on 11-09-2022 Platelet mean volume (Bld) [Entitic vol] 9.2 fL 6.2-12.0 [facility] Determination of erythrocyte mean corpuscular volume (MCV)Ordered By: Dr. Cheng on 11-09-2022 MCV (RBC) [Entitic vol] 95.4 fL 81-99 [facility] Hematocrit Auto (Bld) [Volum e fraction]Ordered By: Dr. Cheng on 11-09-2022 Hematocrit (Bld) [Volume fraction] 41.6 % 37-47 [facility] Laboratory - Chemistry and C hemistry - challengeOrdered By: Dr. Cheng on 11-09-2022 Albumin [Mass/Vol] 3.9 g/dL 2.9-4.4 [facility] ALP [Catalytic activity/Vol] 68 U/L 45-117 [facility] ALT [Catalytic activity/Vol] 42 U/L 13-56 [facility] CO2 [Moles/Vol] 26.0 mmol/L 21.0-32.0 [facility] Globulin (S) [Mass/Vol] 3.3 g/dL 2.2-4.2 [facility] Urea nitrogen/Creatinine [Mass ratio] 30.0 mg/mg 10-20 [facility] Laboratory - Hematology and Cell countsOrdered By: Dr. Cheng on 11-09-2022 Erythrocyte distribution width (RBC) [Entitic vol] 44.7 fL 35.1-43.9 [facility] Erythrocyte distribution width (RBC) [Ratio] 12.8 % 11.6-14.6 [facility] Immature granulocytes/100 WBC (Bld) 0.100 % 0.0-0.9 [facility] Comment on above: IG% - Immature Granu locytes (promyelocytes, myelocytes and metamyelocytes) > 1% indicates that a LEFT SHIFT is Present. MCH (RBC) [Entitic mass] 31.7 pg 27.0-32.0 [facility] Nucleated RBC/100 WBC (Bld) [Ratio] 0 % 0-5 [facility] MCHC Auto (RBC) [Mass/Vol]Or dered By: Dr. Cheng on 11-09-2022 MCHC (RBC) [Mass/Vol] 33.2 g/dL 32-36 [facility] No Panel InformationOrdered By: Dr. Cheng on 11-09-2022 Addendum Document Comment . [facility] Comment on above: The SPE pattern appe ars unremarkable. Evidence ofmonoclonal protein is not apparent.Performed at: [facility] [id number] Director: Dominick De La Rosa PhD, Phone: [phone] Bwoqo-1-Xaztvvput 0.2 g/dL 0.0-0.4 [facility] Khtaw-5-Qcvrrsyqq 0.6 g/dL 0.4-1.0 [facility] Estimated GFR (MDRD) Amer 87 mL/min >60 [facility] Comment on above: GFR Calc Estimated GFR (MDRD) Non-Af Amer 72 mL/min >60 [facility] Comment on above: Non- GFR Calc Gamma Globulins 1.2 g/dL 0.4-1.8 [facility] Platelets bldOrdered By: Dr. Cheng on 11-09-2022 Platelets (Bld) [#/Vol] 312 10*3/uL 150-450 [facility] Protein Fractions Elph [Inte rp]Ordered By: Dr. Cheng on 11-09-2022 Protein Fractions [Interp] Comment . [facility] Comment on above: Protein electrophore sis scan will follow via computer,mail, or motion and time study teacher delivery. Serum albumin to globulin ra marilyn by protein electrophoresisOrdered By: Dr. Cheng on 11-09-2022 Albumin/Globulin Elph [Mass ratio] 1.3 0.7-1.7 [facility] Serum globulin measurement ( mass/volume)Ordered By: Dr. Cheng on 11-09-2022 Globulin (S) [Mass/Vol] 3.0 g/dL 2.2-3.9 [facility] Serum or plasma C reactive p rotein measurement (mass/volume)Ordered By: Dr. Cheng on 11-09-2022 CRP [Mass/Vol] mg/L 0.0-3.0 [facility] Comment on above: C-Reactive Protein ( CRP) provides useful information for thediagnosis, therapy and monitoring of inflammatory processesand associated diseases. For the evaluation of Relative Riskfor Cardiovascular Disease, a High Sensitivity CRP (HSCRP)should be ordered. Serum or plasma albumin hannah urement (mass/volume)Ordered By: Dr. Cheng on 11-09-2022 Albumin [Mass/Vol] 4.0 g/dL 3.2-5.0 [facility] Serum or plasma albumin/glob ulin mass ratioOrdered By: Dr. Cheng on 11-09-2022 Albumin/Globulin [Mass ratio] 1.2 {ratio} 0.9-2.4 [facility] Serum or plasma beta globuli n measurement by electrophoresis (mass/volume)Ordered By: Dr. Cheng on 11-09-2022 Beta globulin Elph [Mass/Vol] 1.1 g/dL 0.7-1.3 [facility] Serum or plasma calcium hannah urement (mass/volume)Ordered By: Dr. Cheng on 11-09-2022 Calcium [Mass/Vol] 9.4 mg/dL 8.5-10.1 [facility] Serum or plasma creatinine m easurement (mass/volume)Ordered By: Dr. Cheng on 11-09-2022 Creatinine [Mass/Vol] 0.87 mg/dL 0.55-1.02 [facility] Comment on above: The validity of the calculated GFR & GFRAA in patients over 70 years has not been determined. Clinical correlation is essential. Serum or plasma urea nitroge n measurement (mass/volume)Ordered By: Dr. Cheng on 11-09-2022 Urea nitrogen [Mass/Vol] 26 mg/dL 7-18 [facility] Thin prep Papanicolaou smear with manual screeningOrdered By: Dr. Cheng on 11-09-2022 Thin prep Papanicolaou smear with manual screening 28 U/L 15-37 [facility] Thin prep Papanicolaou smear with manual screening 6 5-15 [facility] Thin prep Papanicolaou smear with manual screening See comment [facility] Comment on above: Result: Not Observed Total protein bloodOrdered B y: Dr. Cheng on 11-09-2022 Protein [Mass/Vol] 6.9 g/dL 6.0-8.5 [facility] Absolute lymphocyte counton 01-13-2022 Lymphocytes Auto (Unsp spec) [#/Vol] 2.39 10*3/uL 0.83-4.51 [facility] Work Phone: Basophil percentageon 2021 Basophils/100 WBC (Bld) 0.7 % 0-1 [facility] Work Phone: Bilirubin [Mass/Vol] 0.60 mg/dL 0.20-1.00 [facility] Work Phone: Comment on above: For patients on eltr ombopag therapy, use of [place] TBIL is not recommended. Chloride [Moles/Vol] 110 mmol/L 98-107 [facility] Work Phone: Eosinophils/100 WBC (Bld) 3.0 % 0-5 [facility] Work Phone: Glucose [Mass/Vol] 104 mg/dL 74-106 [facility] Work Phone: [phone] Comment on above: Fasting Glucose resu lt from 100 to 125 mg/dL suggests IMPAIRED HOMEOSTASIS per A.D.A. criteria. Neutrophils (Bld) [#/Vol] 2.3 10*3/uL 2.0-7.7 [facility] Work Phone: Neutrophils/100 WBC (Bld) 42.2 % 47-70 [facility] Work Phone: Potassium [Moles/Vol] 4.2 mmol/L 3.5-5.1 [facility] Work Phone: Protein [Mass/Vol] 6.8 g/dL 6.4-8.2 [facility] Work Phone: [phone] Sodium [Moles/Vol] 142 mmol/L 136-145 [facility] Work Phone: [phone] WBC (Bld) [#/Vol] 5.4 10*3/uL 4.4-11.0 [facility] Work Phone: Blood erythrocytes count (nu mber/volume)on 01-13-2022 RBC (Bld) [#/Vol] 3.81 10*6/uL 4.2-5.4 [facility] Work Phone: Blood hemoglobin measurement (mass/volume)on 01-13-2022 Hemoglobin (Bld) [Mass/Vol] 12.0 g/dL 12.0-15.0 [facility] Work Phone: Blood lymphocytes/100 leukoc yteson 01-13-2022 Lymphocytes/100 WBC (Bld) 44.1 % 19-41 [facility] Work Phone: Blood monocytes/100 leukocyt eson 01-13-2022 Monocytes/100 WBC (Bld) 9.8 % 0-10 [facility] Work Phone: Blood platelet mean volumeon 01-13-2022 Platelet mean volume (Bld) [Entitic vol] 9.2 fL 6.2-12.0 [facility] Work Phone: Determination of erythrocyte mean corpuscular volume (MCV)on 01-13-2022 MCV (RBC) [Entitic vol] 96.3 fL 81-99 [facility] Work Phone: Hematocrit Auto (Bld) [Volum e fraction]on 01-13-2022 Hematocrit (Bld) [Volume fraction] 36.7 % 37-47 [facility] Work Phone: Laboratory - Chemistry and C hemistry - challengeon 01-13-2022 ALP [Catalytic activity/Vol] 55 U/L 45-117 [facility] Work Phone: ALT [Catalytic activity/Vol] 52 U/L 13-56 [facility] Work Phone: CO2 [Moles/Vol] 30.0 mmol/L 21.0-32.0 [facility] Work Phone: Globulin (S) [Mass/Vol] 3.2 g/dL 2.2-4.2 [facility] Work Phone: Urea nitrogen/Creatinine [Mass ratio] 24.3 mg/mg 10-20 [facility] Work Phone: Laboratory - Hematology and Cell countson 01-13-2022 Erythrocyte distribution width (RBC) [Entitic vol] 43.4 fL 35.1-43.9 [facility] Work Phone: Erythrocyte distribution width (RBC) [Ratio] 12.3 % 11.6-14.6 [facility] Work Phone: Immature granulocytes/100 WBC (Bld) 0.200 % 0.0-0.9 [facility] Work Phone: Comment on above: IG% - Immature Granu locytes (promyelocytes, myelocytes and metamyelocytes) > 1% indicates that a LEFT SHIFT is Present. MCH (RBC) [Entitic mass] 31.5 pg 27.0-32.0 [facility] Work Phone: Nucleated RBC/100 WBC (Bld) [Ratio] 0 % 0-5 [facility] Work Phone: MCHC Auto (RBC) [Mass/Vol]on 01-13-2022 MCHC (RBC) [Mass/Vol] 32.7 g/dL 32-36 [facility] Work Phone: No Panel Informationon 01-13 Estimated GFR (MDRD) Amer 87 mL/min >60 [facility] Work Phone: Comment on above: GFR Calc Estimated GFR (MDRD) Non-Af Amer 72 mL/min >60 [facility] Work Phone: Comment on above: Non- GFR Calc Platelets bldon 01-13-2022 Platelets (Bld) [#/Vol] 238 10*3/uL 150-450 [facility] Work Phone: Serum or plasma albumin hannah urement (mass/volume)on 01-13-2022 Albumin [Mass/Vol] 3.6 g/dL 3.2-5.0 [facility] Work Phone: Serum or plasma albumin/glob ulin mass ratioon 01-13-2022 Albumin/Globulin [Mass ratio] 1.1 {ratio} 0.9-2.4 [facility] Work Phone: Serum or plasma calcium hannah urement (mass/volume)on 01-13-2022 Calcium [Mass/Vol] 8.8 mg/dL 8.5-10.1 [facility] Work Phone: Serum or plasma creatinine m easurement (mass/volume)on 01-13-2022 Creatinine [Mass/Vol] 0.86 mg/dL 0.55-1.02 [facility] Work Phone: Comment on above: The validity of the calculated GFR & GFRAA in patients over 70 years has not been determined. Clinical correlation is essential. Serum or plasma urea nitroge n measurement (mass/volume)on 01-13-2022 Urea nitrogen [Mass/Vol] 21 mg/dL 7-18 [facility] Work Phone: Thin prep Papanicolaou smear with manual screeningon 01-13-2022 Thin prep Papanicolaou smear with manual screening 30 U/L 15-37 [facility] Work Phone: Thin prep Papanicolaou smear with manual screening 2 5-15 [facility] Work Phone: Thin prep Papanicolaou smear with manual screening 158 U/L 84-246 [facility] Work Phone: Absolute lymphocyte counton 10-06-2021 Lymphocytes Auto (Unsp spec) [#/Vol] 2.55 10*3/uL 0.83-4.51 [facility] Work Phone: Basophil percentageon 2021 Basophils/100 WBC (Bld) 0.9 % 0-1 [facility] Work Phone: Bilirubin [Mass/Vol] 0.50 mg/dL 0.20-1.00 [facility] Work Phone: Comment on above: For patients on eltr ombopag therapy, use of [place] TBIL is not recommended. Chloride [Moles/Vol] 107 mmol/L 98-107 [facility] Work Phone: Eosinophils/100 WBC (Bld) 2.3 % 0-5 [facility] Work Phone: Glucose [Mass/Vol] 99 mg/dL 74-106 [facility] Work Phone: Neutrophils (Bld) [#/Vol] 2.9 10*3/uL 2.0-7.7 [facility] Work Phone: Neutrophils/100 WBC (Bld) 45.7 % 47-70 [facility] Work Phone: Potassium [Moles/Vol] 3.7 mmol/L 3.5-5.1 [facility] Work [facility]: Protein [Mass/Vol] 7.6 g/dL 6.4-8.2 [facility] Work Phone: Sodium [Moles/Vol] 141 mmol/L 136-145 [facility] Work Phone: WBC (Bld) [#/Vol] 6.4 10*3/uL 4.4-11.0 [facility] Work Phone: [phone] Blood erythrocytes count (nu mber/volume)on 10-06-2021 RBC (Bld) [#/Vol] 3.87 10*6/uL 4.2-5.4 [facility] Work Phone: Blood hemoglobin measurement (mass/volume)on 10-06-2021 Hemoglobin (Bld) [Mass/Vol] 12.3 g/dL 12.0-15.0 [facility] Work Phone: Blood lymphocytes/100 leukoc yteson 10-06-2021 Lymphocytes/100 WBC (Bld) 39.8 % 19-41 [facility] Work Phone: Blood monocytes/100 leukocyt eson 10-06-2021 Monocytes/100 WBC (Bld) 11.1 % 0-10 [facility] Work Phone: Blood platelet mean volumeon 10-06-2021 Platelet mean volume (Bld) [Entitic vol] 8.7 fL 6.2-12.0 [facility] Work Phone: Determination of erythrocyte mean corpuscular volume (MCV)on 10-06-2021 MCV (RBC) [Entitic vol] 96.6 fL 81-99 [facility] Work Phone: Erythrocyte sedimentation ra gary 10-06-2021 ESR (Bld) [Velocity] 3 mm/h 0-30 [facility] Work Phone: Hematocrit Auto (Bld) [Volum e fraction]on 10-06-2021 Hematocrit (Bld) [Volume fraction] 37.4 % 37-47 [facility] Work Phone: INR in Blood by Coagulation assayon 10-06-2021 INR Coag (Bld) [Relative time] 1.0 {INR} [facility] Work Phone: Laboratory - Chemistry and C hemistry - challengeon 10-06-2021 ALP [Catalytic activity/Vol] 62 U/L 45-117 [facility] Work Phone: [phone] ALT [Catalytic activity/Vol] 50 U/L 13-56 [facility] Work Phone: CO2 [Moles/Vol] 32.0 mmol/L 21.0-32.0 [facility] Work Phone: Globulin (S) [Mass/Vol] 3.6 g/dL 2.2-4.2 [facility] Work Phone: Urea nitrogen/Creatinine [Mass ratio] 19.3 mg/mg 10-20 [facility] Work Phone: Laboratory - Coagulationon 0 10-06-2021 aPTT Coag (Bld) [Time] 26.3 s 24.1-36.2 [facility] Work Phone: PT Coag (PPP) [Time] 12.4 s 11.7-14.9 [facility] Work Phone: Laboratory - Hematology and Cell countson 10-06-2021 Erythrocyte distribution width (RBC) [Entitic vol] 46.5 fL 35.1-43.9 [facility] Work Phone: Erythrocyte distribution width (RBC) [Ratio] 13.0 % 11.6-14.6 [facility] Work Phone: Immature granulocytes/100 WBC (Bld) 0.200 % 0.0-0.9 [facility] Work Phone: Comment on above: IG% - Immature Granu locytes (promyelocytes, myelocytes and metamyelocytes) > 1% indicates that a LEFT SHIFT is Present. MCH (RBC) [Entitic mass] 31.8 pg 27.0-32.0 [facility] Work Phone: Nucleated RBC/100 WBC (Bld) [Ratio] 0 % 0-5 [facility] Work Phone: MCHC Auto (RBC) [Mass/Vol]on 10-06-2021 MCHC (RBC) [Mass/Vol] 32.9 g/dL 32-36 [facility] Work Phone: No Panel Informationon 10-06 Estimated GFR (MDRD) Amer 85 mL/min >60 [facility] Work Phone: Comment on above: GFR Calc Estimated GFR (MDRD) Non-Af Amer 70 mL/min >60 [facility] Work Phone: Comment on above: Non- GFR Calc Platelets bldon 10-06-2021 Platelets (Bld) [#/Vol] 276 10*3/uL 150-450 [facility] Work Phone: Serum or plasma albumin hannah urement (mass/volume)on 10-06-2021 Albumin [Mass/Vol] 4.0 g/dL 3.2-5.0 [facility] Work Phone: Serum or plasma albumin/glob ulin mass ratioon 10-06-2021 Albumin/Globulin [Mass ratio] 1.1 {ratio} 0.9-2.4 [facility] Work Phone: Serum or plasma calcium hannah urement (mass/volume)on 10-06-2021 Calcium [Mass/Vol] 9.0 mg/dL 8.5-10.1 [facility] Work Phone: Serum or plasma creatinine m easurement (mass/volume)on 10-06-2021 Creatinine [Mass/Vol] 0.88 mg/dL 0.55-1.02 [facility] Work Phone: Comment on above: The validity of the calculated GFR & GFRAA in patients over 70 years has not been determined. Clinical correlation is essential. Serum or plasma urea nitroge n measurement (mass/volume)on 10-06-2021 Urea nitrogen [Mass/Vol] 17 mg/dL 7-18 [facility] Work Phone: Thin prep Papanicolaou smear with manual screeningon 10-06-2021 Thin prep Papanicolaou smear with manual screening 33 U/L 15-37 [facility] Work Phone: Thin prep Papanicolaou smear with manual screening 2 5-15 [facility] Work Phone: Thin prep Papanicolaou smear with manual screening 175 U/L 84-246 [facility] Work Phone: Basophil percentageon 2021 WBC (Bld) [#/Vol] 7.7 10*3/uL 4.4-11.0 [facility] Work Phone: Blood erythrocytes count (nu mber/volume)on 07-26-2021 RBC (Bld) [#/Vol] 4.04 10*6/uL 4.2-5.4 [facility] Work Phone: Blood hemoglobin measurement (mass/volume)on 07-26-2021 Hemoglobin (Bld) [Mass/Vol] 13.0 g/dL 12.0-15.0 [facility] Work Phone: Blood platelet mean volumeon 07-26-2021 Platelet mean volume (Bld) [Entitic vol] 9.3 fL 6.2-12.0 [facility] Work Phone: Determination of erythrocyte mean corpuscular volume (MCV)on 07-26-2021 MCV (RBC) [Entitic vol] 96.5 fL 81-99 [facility] Work Phone: Hematocrit Auto (Bld) [Volum e fraction]on 07-26-2021 Hematocrit (Bld) [Volume fraction] 39.0 % 37-47 [facility] Work Phone: Laboratory - Hematology and Cell countson 07-26-2021 Erythrocyte distribution width (RBC) [Entitic vol] 44.2 fL 35.1-43.9 [facility] Work Phone: Erythrocyte distribution width (RBC) [Ratio] 12.5 % 11.6-14.6 [facility] Work Phone: MCH (RBC) [Entitic mass] 32.2 pg 27.0-32.0 [facility] Work Phone: MCHC Auto (RBC) [Mass/Vol]on 07-26-2021 MCHC (RBC) [Mass/Vol] 33.3 g/dL 32-36 [facility] Work Phone: No Panel Informationon 07-26 Vitamin D 25-Hydroxy 26.6 ng/mL [facility] Work Phone: Comment on above: Vitamin D 25(OH) Sta tus Range Deficiency <20 ng/mL (50nmol/L) Insufficiency 20 - 30 ng/mL (50 - 75 nmol/L) Sufficiency 30 - 100 ng/mL (75 - 250 nmol/L) Toxicity >100 ng/mL (>250 nmol/L) Platelets bldon 07-26-2021 Platelets (Bld) [#/Vol] 296 10*3/uL 150-450 [facility] Work Phone: Discharge Summaryon 06-27-19 18 Discharge Summary Normal [facility]) Main OR Intraop Recordon Main OR Intraop Record Normal [facility]) CBLon 06-07-2017 CBL . MICRO - MicrobiologyPROCEDURE: [...] days.Performing Locations*1: This test was performed at: [address], [address] [place] [address] ([place]) Comment on above: Performed By: #### C BC, ADIFF, ANEU, PRO, GFR, CMP ####[place] [address] CBL . MICRO - MicrobiologyPROCEDURE: Blood Culture [...] days.Performing Locations*1: This test was performed at: [address], [address] [place] [address] ([place]) Comment on above: Performed By: #### C BC, ADIFF, ANEU, PRO, GFR, CMP ####[place] [address] CGEFANon 06-05-2017 CGEFAN . MICRO - MicrobiologyPROCEDURE: [...] ResistantSulfaPerforming Locations*1: This test was performed at: [facility], [address] [place] [address], [address] , [facility] ([place]) Comment on above: Performed By: #### C BC, ADIFF, ANEU, PRO, GFR, CMP ####[place] [address] Depart Summaryon 06-05-2017 Depart Summary Normal [facility] ([place]) OFFICE SERVICES ASSOCIATE Rounding Noteon 06-05-20 17 OFFICE SERVICES ASSOCIATE Rounding Note Normal [facility] ([place]) OFFICE SERVICES ASSOCIATE Rounding Note Normal [facility]) Infectious Disease Progress Noteon 06-05-2017 Infectious Disease Progress Note Normal [facility] ([place]) Inpatient Patient Summaryon 06-05-2017 Inpatient Patient Summary Normal [facility]) Infectious Disease Progress Noteon 06-04-2017 Infectious Disease Progress Note Normal [facility]) Progress Note-Nurseon 2016 Progress Note-Nurse Normal [facility] ([place]) [facility] 06-04-2017 LDose Vancomycin:(trough) See eMAR Normal [facility] ([place]) Comment on above: Performed By: #### C BC, ADIFF, ANEU, PRO, GFR, CMP ####[place] [address] VANCOMYCIN 12.0 mcg/mL Normal 5.0-20.0 [facility] ([place]) Comment on above: Performed By: #### C BC, ADIFF, ANEU, PRO, GFR, CMP ####[place] [address] .Auto Diffon 06-03-2017 Basophils Auto #/vol (Bld) 0.00 10 3/mcL Normal 0.00-0.27 [facility] ([place]) Comment on above: Performed By: #### C BC, ADIFF, ANEU, PRO, GFR, CMP ####[place] [address] Basophils/100 WBC Auto (Bld) 0.3 % Normal 0.0-2.5 [facility]) Comment on above: Performed By: #### C BC, ADIFF, ANEU, PRO, GFR, CMP ####[place] [address] Eosinophils 0.30 10 3/mcL Normal 0.00-0.65 [facility]) Comment on above: Performed By: #### C BC, ADIFF, ANEU, PRO, GFR, CMP ####[address] [address] Eosinophils/100 leukocytes 2.5 % Normal 0.0-6.0 [facility] ([place]) Comment on above: Performed By: #### C BC, ADIFF, ANEU, PRO, GFR, CMP ####[address] [address] Lymphocytes 2.00 10 3/mcL Normal 0.90-4.32 [facility] ([place]) Comment on above: Performed By: #### C BC, ADIFF, ANEU, PRO, GFR, CMP ####[address] [address] Lymphocytes/100 leukocytes 16.1 % Low 20.0-40.0 [facility] ([place]) Comment on above: Performed By: #### C BC, ADIFF, ANEU, PRO, GFR, CMP ####[address] [address] Monocytes 0.70 10 3/mcL Normal 0.09-1.40 [facility] ([place]) Comment on above: Performed By: #### C BC, ADIFF, ANEU, PRO, GFR, CMP ####[address] [address] Monocytes/100 leukocytes 5.8 % Normal 2.0-13.0 [facility] ([place]) Comment on above: Performed By: #### C BC, ADIFF, ANEU, PRO, GFR, CMP ####[address] [address] Neutrophils/100 WBC Auto (Bld) 75.3 % High 50.0-75.0 [facility] ([place]) Comment on above: Performed By: #### C BC, ADIFF, ANEU, PRO, GFR, CMP ####[address] [address] .GFRon 06-03-2017 eGFR (non-black) mL/min/{1.73_m2} Normal [facility] ([place]) Comment on above: Result Comment: GFR Population [...] C BC, ADIFF, ANEU, PRO, GFR, CMP ####[place] [address] .NEUABSon 06-03-2017 Neutrophils 9.40 10 3/mcL High 2.25-8.10 [facility] ([place]) Comment on above: Performed By: #### C BC, ADIFF, ANEU, PRO, GFR, CMP ####[place] [address] CBCon 06-03-2017 Erythrocyte distribution width Auto Ratio (RBC) 12.4 % Normal 11.5-15.5 [facility] ([place]) Comment on above: Performed By: #### C BC, ADIFF, ANEU, PRO, GFR, CMP ####[place] [address] Erythrocytes (RBC) 3.54 10 6/mcL Low 4.10-5.30 [facility] ([place]) Comment on above: Performed By: #### C BC, ADIFF, ANEU, PRO, GFR, CMP ####[place] [address] Hematocrit (HCT) 32.5 % Low 34.0-46.0 [facility] ([place]) Comment on above: Performed By: #### C BC, ADIFF, ANEU, PRO, GFR, CMP ####[place] [address] Hemoglobin mass conc (Bld) 11.2 G/dL Low 12.0-16.0 [facility] ([place]) Comment on above: Performed By: #### C BC, ADIFF, ANEU, PRO, GFR, CMP ####[place] [address] MCH 31.6 pg Normal 27.0-33.0 [facility] ([place]) Comment on above: Performed By: #### C BC, ADIFF, ANEU, PRO, GFR, CMP ####[place] [address] MCHC mass conc (RBC) 34.5 G/dL Normal 32.0-36.0 [facility] ([place]) Comment on above: Performed By: #### C BC, ADIFF, ANEU, PRO, GFR, CMP ####[place] [address] MCV 91.6 fL Normal 80.0-99.0 [facility] ([place]) Comment on above: Performed By: #### C BC, ADIFF, ANEU, PRO, GFR, CMP ####[place] [address] Platelet mean volume (PMV) 6.9 fL Normal 6.6-10.5 [facility] ([place]) Comment on above: Performed By: #### C BC, ADIFF, ANEU, PRO, GFR, CMP ####[place] [address] Platelets 339 10 3/mcL Normal 150-450 [facility] ([place]) Comment on above: Performed By: #### C BC, ADIFF, ANEU, PRO, GFR, CMP ####[place] [address] WBC (Leukocytes) 12.40 10 3/mcL High 4.50-10.80 [facility] ([place]) Comment on above: Performed By: #### C BC, ADIFF, ANEU, PRO, GFR, CMP ####[place] [address] CMPon 06-03-2017 Alanine aminotransferase (ALT) 24 U/L Normal 10-49 [facility] ([place]) Comment on above: Performed By: #### C BC, ADIFF, ANEU, PRO, GFR, CMP ####[place] [address] Albumin/Globulin Ratio 1.0 {ratio} Normal 0.9-1.6 [facility] ([place]) Comment on above: Performed By: #### C BC, ADIFF, ANEU, PRO, GFR, CMP ####[address] [address] Alk Phos 62 U/L Normal 38-126 [facility] ([place]) Comment on above: Performed By: #### C BC, ADIFF, ANEU, PRO, GFR, CMP ####[place] [address] Bili Total 0.6 mg/dL Normal 0.2-1.2 [facility] ([place]) Comment on above: Performed By: #### C BC, ADIFF, ANEU, PRO, GFR, CMP ####[place] [address] BUN/Creatinine Ratio 8.7 ratio Low 10.0-22.0 [facility] ([place]) Comment on above: Performed By: #### C BC, ADIFF, ANEU, PRO, GFR, CMP ####[place] [address] Creatinine 0.69 mg/dL Normal 0.50-1.20 [facility] ([place]) Comment on above: Performed By: #### C BC, ADIFF, ANEU, PRO, GFR, CMP ####[address] [address] Globulin 3.1 G/dL Normal 1.5-3.8 [facility] ([place]) Comment on above: Performed By: #### C BC, ADIFF, ANEU, PRO, GFR, CMP ####[place] [address] Protein 6.2 G/dL Normal 6.0-8.5 [facility] ([place]) Comment on above: Performed By: #### C BC, ADIFF, ANEU, PRO, GFR, CMP ####[place] [address] Albumin 3.1 G/dL Low 3.2-4.8 [facility] ([place]) Comment on above: Performed By: #### C BC, ADIFF, ANEU, PRO, GFR, CMP ####[address] [address] Aspartate aminotransferase (AST) 9 U/L Normal 8-34 [facility] ([place]) Comment on above: Performed By: #### C BC, ADIFF, ANEU, PRO, GFR, CMP ####[address] [address] Calcium 8.2 mg/dL Low 8.4-10.1 [facility] ([place]) Comment on above: Performed By: #### C BC, ADIFF, ANEU, PRO, GFR, CMP ####[address] [address] Chloride 108 mmol/L Normal 98-110 [facility] ([place]) Comment on above: Performed By: #### C BC, ADIFF, ANEU, PRO, GFR, CMP ####[place] [address] CO2 22 mmol/L Normal 22-32 [facility] ([place]) Comment on above: Performed By: #### C BC, ADIFF, ANEU, PRO, GFR, CMP ####[address] [address] Electrolyte Balance 8.0 mEq/L Normal 4.0-15.0 [facility] ([place]) Comment on above: Performed By: #### C BC, ADIFF, ANEU, PRO, GFR, CMP ####[address] [address] Glucose mass conc 130 mg/dL High 70-110 [facility] ([place]) Comment on above: Performed By: #### C BC, ADIFF, ANEU, PRO, GFR, CMP ####[address] [address] Potassium molar conc 4.0 mmol/L Normal 3.5-5.0 [facility] ([place]) Comment on above: Performed By: #### C BC, ADIFF, ANEU, PRO, GFR, CMP ####[place] [address] Sodium 138 mmol/L Normal 136-145 [facility] ([place]) Comment on above: Performed By: #### C BC, ADIFF, ANEU, PRO, GFR, CMP ####[address] [address] Urea nitrogen 6.0 mg/dL Low 8.0-22.0 [facility] ([place]) Comment on above: Performed By: #### C BC, ADIFF, ANEU, PRO, GFR, CMP ####[address] [address] OFFICE SERVICES ASSOCIATE Rounding Noteon 06-03-20 17 OFFICE SERVICES ASSOCIATE Rounding Note Normal [facility] ([place]) Infectious Disease Progress Noteon 06-03-2017 Infectious Disease Progress Note Normal [facility] ([place]) Progress Note-Nurseon 2016 Progress Note-Nurse Normal [facility] ([place]) .Auto Diffon 06-02-2017 Basophils Auto #/vol (Bld) 0.00 10 3/mcL Normal 0.00-0.27 [facility] ([place]) Comment on above: Performed By: #### C BC, ADIFF, ANEU, PRO, GFR, CMP ####[address] [address] Basophils/100 WBC Auto (Bld) 0.1 % Normal 0.0-2.5 [facility] ([place]) Comment on above: Performed By: #### C BC, ADIFF, ANEU, PRO, GFR, CMP ####[address] [address] Eosinophils 0.10 10 3/mcL Normal 0.00-0.65 [facility] ([place]) Comment on above: Performed By: #### C BC, ADIFF, ANEU, PRO, GFR, CMP ####[address] [address] Eosinophils/100 leukocytes 0.8 % Normal 0.0-6.0 [facility] ([place]) Comment on above: Performed By: #### C BC, ADIFF, ANEU, PRO, GFR, CMP ####[address] [address] Lymphocytes 2.80 10 3/mcL Normal 0.90-4.32 [facility] ([place]) Comment on above: Performed By: #### C BC, ADIFF, ANEU, PRO, GFR, CMP ####[address] [address] Lymphocytes/100 leukocytes 17.5 % Low 20.0-40.0 [facility] ([place]) Comment on above: Performed By: #### C BC, ADIFF, ANEU, PRO, GFR, CMP ####[address] [address] Monocytes 1.50 10 3/mcL High 0.09-1.40 [facility] ([place]) Comment on above: Performed By: #### C BC, ADIFF, ANEU, PRO, GFR, CMP ####[address] [address] Monocytes/100 leukocytes 9.5 % Normal 2.0-13.0 [facility] ([place]) Comment on above: Performed By: #### C BC, ADIFF, ANEU, PRO, GFR, CMP ####[address] [address] Neutrophils/100 WBC Auto (Bld) 72.1 % Normal 50.0-75.0 [facility] ([place]) Comment on above: Performed By: #### C BC, ADIFF, ANEU, PRO, GFR, CMP ####[address] [address] .GFRon 06-02-2017 eGFR (non-black) mL/min/{1.73_m2} Normal [facility] ([place]) Comment on above: Result Comment: GFR Population [...] C BC, ADIFF, ANEU, PRO, GFR, CMP ####[place] [address] .NEUABSon 06-02-2017 Neutrophils 11.70 10 3/mcL High 2.25-8.10 [facility] ([place]) Comment on above: Performed By: #### C BC, ADIFF, ANEU, PRO, GFR, CMP ####[place] [address] CBCon 06-02-2017 Erythrocyte distribution width Auto Ratio (RBC) 12.6 % Normal 11.5-15.5 [facility] ([place]) Comment on above: Performed By: #### C BC, ADIFF, ANEU, PRO, GFR, CMP ####[place] [address] Erythrocytes (RBC) 3.69 10 6/mcL Low 4.10-5.30 [facility] ([place]) Comment on above: Performed By: #### C BC, ADIFF, ANEU, PRO, GFR, CMP ####[place] [address] Hematocrit (HCT) 34.4 % Normal 34.0-46.0 [facility] ([place]) Comment on above: Performed By: #### C BC, ADIFF, ANEU, PRO, GFR, CMP ####[place] [address] Hemoglobin mass conc (Bld) 11.6 G/dL Low 12.0-16.0 [facility] ([place]) Comment on above: Performed By: #### C BC, ADIFF, ANEU, PRO, GFR, CMP ####[place] [address] MCH 31.5 pg Normal 27.0-33.0 [facility] ([place]) Comment on above: Performed By: #### C BC, ADIFF, ANEU, PRO, GFR, CMP ####[place] [address] MCHC mass conc (RBC) 33.9 G/dL Normal 32.0-36.0 [facility] ([place]) Comment on above: Performed By: #### C BC, ADIFF, ANEU, PRO, GFR, CMP ####[place] [address] MCV 93.0 fL Normal 80.0-99.0 [facility] ([place]) Comment on above: Performed By: #### C BC, ADIFF, ANEU, PRO, GFR, CMP ####[place] [address] Platelet mean volume (PMV) 7.0 fL Normal 6.6-10.5 [facility] ([place]) Comment on above: Performed By: #### C BC, ADIFF, ANEU, PRO, GFR, CMP ####[place] [address] Platelets 370 10 3/mcL Normal 150-450 [facility] ([place]) Comment on above: Performed By: #### C BC, ADIFF, ANEU, PRO, GFR, CMP ####[place] [address] WBC (Leukocytes) 16.30 10 3/mcL High 4.50-10.80 [facility] ([place]) Comment on above: Performed By: #### C BC, ADIFF, ANEU, PRO, GFR, CMP ####[place] [address] CMPon 06-02-2017 Albumin/Globulin Ratio 1.0 {ratio} Normal 0.9-1.6 [facility] ([place]) Comment on above: Performed By: #### C BC, ADIFF, ANEU, PRO, GFR, CMP ####[place] [address] Alk Phos 61 U/L Normal 38-126 [facility] ([place]) Comment on above: Performed By: #### C BC, ADIFF, ANEU, PRO, GFR, CMP ####[place] [address] Bili Total 0.7 mg/dL Normal 0.2-1.2 [facility] ([place]) Comment on above: Performed By: #### C BC, ADIFF, ANEU, PRO, GFR, CMP ####[place] [address] Globulin 3.2 G/dL Normal 1.5-3.8 [facility] ([place]) Comment on above: Performed By: #### C BC, ADIFF, ANEU, PRO, GFR, CMP ####[address] [address] Protein 6.3 G/dL Normal 6.0-8.5 [facility] ([place]) Comment on above: Performed By: #### C BC, ADIFF, ANEU, PRO, GFR, CMP ####[place] [address] Alanine aminotransferase (ALT) 26 U/L Normal 10-49 [facility] ([place]) Comment on above: Performed By: #### C BC, ADIFF, ANEU, PRO, GFR, CMP ####[place] [address] Albumin 3.1 G/dL Low 3.2-4.8 [facility] ([place]) Comment on above: Performed By: #### C BC, ADIFF, ANEU, PRO, GFR, CMP ####[place] [address] Aspartate aminotransferase (AST) 13 U/L Normal 8-34 [facility] ([place]) Comment on above: Performed By: #### C BC, ADIFF, ANEU, PRO, GFR, CMP ####[place] [address] BUN/Creatinine Ratio 13.6 ratio Normal 10.0-22.0 [facility] ([place]) Comment on above: Performed By: #### C BC, ADIFF, ANEU, PRO, GFR, CMP ####[place] [address] Calcium 8.0 mg/dL Low 8.4-10.1 [facility] ([place]) Comment on above: Performed By: #### C BC, ADIFF, ANEU, PRO, GFR, CMP ####[place] [address] Chloride 111 mmol/L High 98-110 [facility] ([place]) Comment on above: Performed By: #### C BC, ADIFF, ANEU, PRO, GFR, CMP ####[place] [address] CO2 22 mmol/L Normal 22-32 [facility] ([place]) Comment on above: Performed By: #### C BC, ADIFF, ANEU, PRO, GFR, CMP ####[place] [address] Creatinine 0.81 mg/dL Normal 0.50-1.20 [facility] ([place]) Comment on above: Performed By: #### C BC, ADIFF, ANEU, PRO, GFR, CMP ####[place] [address] Electrolyte Balance 10.0 mEq/L Normal 4.0-15.0 [facility] ([place]) Comment on above: Performed By: #### C BC, ADIFF, ANEU, PRO, GFR, CMP ####[place] [address] Glucose mass conc 101 mg/dL Normal 70-110 [facility] ([place]) Comment on above: Performed By: #### C BC, ADIFF, ANEU, PRO, GFR, CMP ####[place] [address] Potassium molar conc 3.9 mmol/L Normal 3.5-5.0 [facility] ([place]) Comment on above: Performed By: #### C BC, ADIFF, ANEU, PRO, GFR, CMP ####[place] [address] Sodium 143 mmol/L Normal 136-145 [facility] ([place]) Comment on above: Performed By: #### C BC, ADIFF, ANEU, PRO, GFR, CMP ####[place] [address] Urea nitrogen 11.0 mg/dL Normal 8.0-22.0 [facility] ([place]) Comment on above: Performed By: #### C BC, ADIFF, ANEU, PRO, GFR, CMP ####[place] [address] CT ABDOMEN/PELVIS W/CONTRAST on 06-02-2017 CT ABDOMEN/PELVIS [...] findings, as above Interpreted By: Vinay Cai CITIZENS BAPTISTreliminary Report By: Vinay Cai MDElectronically Signed By: Vinay Cai MD Dictated Date: 06/02/2017 12:22:41 PM Prelim Date: 06/02/2017 12:22:41 PM Sign Date: 06/02/2017 12:30:30 PM Normal [facility] ([place]) History and Physicalon 06-02 History and Physical Normal [facility]) Infectious Disease Consultat ionon 06-02-2017 Infectious Disease Consultation Normal [facility]) LACon 06-02-2017 Lactic Acid Lvl 1.4 mmol/L Normal 0.2-2.0 [facility]) Comment on above: Performed By: #### C BC, ADIFF, ANEU, PRO, GFR, CMP ####[place] [id number] [place] [address] PROon 06-02-2017 INR Coag RelTime (PPP) 1.1 {INR} Normal [facility]) Comment on above: Result Comment: [employer] (CHEST, 1992, [id number])recommended therapeutic range for oral anticoagulant therapy is:LOW RISK: Prophylaxis of venous thrombosis INR: 2.0-3.0 Treatment of pulmonary embolism 2.0-3.0 Prevention of systemic embolism 2.0-3.0HIGH RISK: Mechanical prosthetic valves 2.5-3.5 Performed By: #### C BC, ADIFF, ANEU, PRO, GFR, CMP ####[place] [id number] [place] [address] Prothrombin time (PT) Coag time (PPP) 12.9 s Normal 9.0-14.5 [facility]) Comment on above: Result Comment: Effe ctive 12/25/07, Protime results may be affected by some antibiotics (i.e. Ciprofloxacin, Azithromycin, Bactrim) which may potentiate the action of oral anticoagulants, with further increases in Protime/INR. Performed By: #### C BC, ADIFF, ANEU, PRO, GFR, CMP ####[address] [address] Depart Summaryon 05-26-2017 Depart Summary Normal [facility]) Discharge Summaryon 05-26-20 Discharge Summary Normal [facility]) OFFICE SERVICES ASSOCIATE Rounding Noteon 05-26-20 17 OFFICE SERVICES ASSOCIATE Rounding Note Normal [facility]) Inpatient Patient Summaryon 05-26-2017 Inpatient Patient Summary Normal [facility]) .Auto Diffon 05-25-2017 Basophils Auto #/vol (Bld) 0.00 10 3/mcL Normal 0.00-0.27 [facility] ([place]) Comment on above: Performed By: #### C BC, ADIFF, ANEU, PRO, GFR, CMP ####[address] [address] Basophils/100 WBC Auto (Bld) 0.1 % Normal 0.0-2.5 [facility] ([place]) Comment on above: Performed By: #### C BC, ADIFF, ANEU, PRO, GFR, CMP ####[address] [address] Eosinophils 0.00 10 3/mcL Normal 0.00-0.65 [facility] ([place]) Comment on above: Performed By: #### C BC, ADIFF, ANEU, PRO, GFR, CMP ####[address] [address] Eosinophils/100 leukocytes 0.0 % Normal 0.0-6.0 [facility] ([place]) Comment on above: Performed By: #### C BC, ADIFF, ANEU, PRO, GFR, CMP ####[address] [address] Lymphocytes 1.60 10 3/mcL Normal 0.90-4.32 [facility] ([place]) Comment on above: Performed By: #### C BC, ADIFF, ANEU, PRO, GFR, CMP ####[address] [address] Lymphocytes/100 leukocytes 12.5 % Low 20.0-40.0 [facility] ([place]) Comment on above: Performed By: #### C BC, ADIFF, ANEU, PRO, GFR, CMP ####[address] [address] Monocytes 1.50 10 3/mcL High 0.09-1.40 [facility] ([place]) Comment on above: Performed By: #### C BC, ADIFF, ANEU, PRO, GFR, CMP ####[address] [address] Monocytes/100 leukocytes 11.6 % Normal 2.0-13.0 [facility] ([place]) Comment on above: Performed By: #### C BC, ADIFF, ANEU, PRO, GFR, CMP ####[address] [address] Neutrophils/100 WBC Auto (Bld) 75.8 % High 50.0-75.0 [facility] ([place]) Comment on above: Performed By: #### C BC, ADIFF, ANEU, PRO, GFR, CMP ####[address] [address] .GFRon 05-25-2017 eGFR (non-black) mL/min/{1.73_m2} Normal [facility] ([place]) Comment on above: Result Comment: GFR Population [...] C BC, ADIFF, ANEU, PRO, GFR, CMP ####[address] [address] eGFR (non-black) mL/min/{1.73_m2} Normal [facility] ([place]) Comment on above: Result Comment: GFR Population [...] C BC, ADIFF, ANEU, PRO, GFR, CMP ####[place] [id number] .NEUABSon 05-25-2017 Neutrophils 9.90 10 3/mcL High 2.25-8.10 [facility] ([place]) Comment on above: Performed By: #### C BC, ADIFF, ANEU, PRO, GFR, CMP ####[place] [address] BMPon 05-25-2017 BUN/Creatinine Ratio 10.0 ratio Normal 10.0-22.0 Formerly [facility], 1928–[facility] ([place]) Comment on above: Performed By: #### C BC, ADIFF, ANEU, PRO, GFR, CMP ####[place] [address] Creatinine 0.80 mg/dL Normal 0.50-1.20 [facility] ([place]) Comment on above: Performed By: #### C BC, ADIFF, ANEU, PRO, GFR, CMP ####[place] [address] Calcium 8.4 mg/dL Normal 8.4-10.1 [facility] ([place]) Comment on above: Performed By: #### C BC, ADIFF, ANEU, PRO, GFR, CMP ####[place] [address] Chloride 110 mmol/L Normal 98-110 [facility] ([place]) Comment on above: Performed By: #### C BC, ADIFF, ANEU, PRO, GFR, CMP ####[place] [address] CO2 25 mmol/L Normal 22-32 [facility] ([place]) Comment on above: Performed By: #### C BC, ADIFF, ANEU, PRO, GFR, CMP ####[place] [address] Electrolyte Balance 5.0 mEq/L Normal 4.0-15.0 [facility] ([place]) Comment on above: Performed By: #### C BC, ADIFF, ANEU, PRO, GFR, CMP ####[place] [address] Glucose mass conc 135 mg/dL High 70-110 [facility] ([place]) Comment on above: Performed By: #### C BC, ADIFF, ANEU, PRO, GFR, CMP ####[place] [address] Potassium molar conc 4.2 mmol/L Normal 3.5-5.0 [facility]ly [facility], [facility] ([place]) Comment on above: Performed By: #### C BC, ADIFF, ANEU, PRO, GFR, CMP ####[place] [address] Sodium 140 mmol/L Normal 136-145 [facility] ([place]) Comment on above: Performed By: #### C BC, ADIFF, ANEU, PRO, GFR, CMP ####[place] [address] Urea nitrogen 8.0 mg/dL Normal 8.0-22.0 [facility] ([place]) Comment on above: Performed By: #### C BC, ADIFF, ANEU, PRO, GFR, CMP ####[place] [address] CBCon 05-25-2017 Erythrocyte distribution width Auto Ratio (RBC) 13.0 % Normal 11.5-15.5 [facility] ([place]) Comment on above: Performed By: #### C BC, ADIFF, ANEU, PRO, GFR, CMP ####[place] [address] Erythrocytes (RBC) 3.80 10 6/mcL Low 4.10-5.30 [facility] ([place]) Comment on above: Performed By: #### C BC, ADIFF, ANEU, PRO, GFR, CMP ####[place] [address] Hematocrit (HCT) 35.7 % Normal 34.0-46.0 [facility] ([place]) Comment on above: Performed By: #### C BC, ADIFF, ANEU, PRO, GFR, CMP ####[place] [address] Hemoglobin mass conc (Bld) 12.2 G/dL Normal 12.0-16.0 [facility] ([place]) Comment on above: Performed By: #### C BC, ADIFF, ANEU, PRO, GFR, CMP ####[place] [address] MCH 32.2 pg Normal 27.0-33.0 [facility] ([place]) Comment on above: Performed By: #### C BC, ADIFF, ANEU, PRO, GFR, CMP ####[place] [address] MCHC mass conc (RBC) 34.2 G/dL Normal 32.0-36.0 [facility], [facility] ([place]) Comment on above: Performed By: #### C BC, ADIFF, ANEU, PRO, GFR, CMP ####[place] [address] MCV 94.0 fL Normal 80.0-99.0 [facility] ([place]) Comment on above: Performed By: #### C BC, ADIFF, ANEU, PRO, GFR, CMP ####[place] [address] Platelet mean volume (PMV) 7.2 fL Normal 6.6-10.5 [facility] ([place]) Comment on above: Performed By: #### C BC, ADIFF, ANEU, PRO, GFR, CMP ####[place] [address] Platelets 253 10 3/mcL Normal 150-450 [facility] ([place]) Comment on above: Performed By: #### C BC, ADIFF, ANEU, PRO, GFR, CMP ####[place] [address] WBC (Leukocytes) 13.00 10 3/mcL High 4.50-10.80 [facility] ([place]) Comment on above: Performed By: #### C BC, ADIFF, ANEU, PRO, GFR, CMP ####[place] [address] Final Surgical Pathology Rep [facility] 05-25-2017 Final Surgical Pathology Report . Pathology ReportsAccession: Collected Date/Time: Received Date/Time: Pathologist:[id number] 05/24/2017 08:52 EST 05/24/2017 10:31 EST SENIOR, [...] cm in thickness. The underlying myometrium is [id number], and measures up to 2.1 cm in thickness. There are a few intramural nodules measuring up to 0.4 cm in greatest dimension. All show regan-white whorled cut surfaces. RS -2Block Summary1 -2 cervix and endomyometrium intramural nodules, anterior and posterior cohen respectivelyDictated by JASSON OMALLEY ([facility])MICROSCOPIC DESCRIPTION:Slides reviewed. Pathology ReportsAccession: Collected Date/Time: Received Date/Time: Pathologist:[id number] 05/24/2017 08:52 EST 05/24/2017 10:31 DO NEEMA CHOWDARY EElectronically Signed byPathology Report verified by [facility] HealthElectronically signed by NEEMA LOREDO DOSign out Date: 05/25/2017 12:48Performing Lab: [address] ([place]) Comment on above: Performed By: #### C BC, ADIFF, ANEU, PRO, GFR, CMP ####[place] [address] OFFICE SERVICES ASSOCIATE Rounding Noteon 05-25-20 17 OFFICE SERVICES ASSOCIATE Rounding Note Normal [facility] ([place]) Non-Commercial Lease Administrator Cytology Reporton Non-Commercial Lease Administrator Cytology Report . Pathology ReportsAccession: Collected Date/Time: Received Date/Time: Pathologist:[id number] 05/24/2017 08:47 EST 05/24/2017 12:21 EST MD RADHA TRENT Non-Commercial Lease Administrator Cytology ReportCLINICAL INFORMATION:PELVIC MASSDIAGNOSIS:NEGATIVE FOR MALIGNANCYCOMMENT:SCANT CELLULARITYSPECIMEN:PELVIC WASHINGGROSS DESCRIPTION:# of Blocks: 1# of Monolayers: 1Volume (ml) 20 Color: FRESH BLOODY FLUIDElectronically Signed byPathology report verified by [facility] Hospitalcreened by: TAMMY RMElectronically signed by RADHA TRENT MDSign-Out Date: 05/25/2017 08:54Performing Lab: [address] [address] [facility] Normal [facility] ([place]) Comment on above: Performed By: #### C BC, ADIFF, ANEU, PRO, GFR, CMP ####[address] [address] Operative Noteon 05-24-2017 Operative Note Normal [facility] ([place]) Procedure Noteon 05-24-2017 Procedure Note Normal [facility] ([place]) History and Physical Pre-Opo n 05-23-2017 History and Physical Pre-Op Normal [facility] ([place]) Main Pretest Recordon 2016 Main Pretest Record Normal [facility] ([place]) .Auto Diffon 05-17-2017 Basophils Auto #/vol (Bld) 0.00 10 3/mcL Normal 0.00-0.27 [facility] ([place]) Comment on above: Performed By: #### C BC, ADIFF, ANEU, PRO, GFR, CMP ####[place] [address] Basophils/100 WBC Auto (Bld) 0.7 % Normal 0.0-2.5 [facility] ([place]) Comment on above: Performed By: #### C BC, ADIFF, ANEU, PRO, GFR, CMP ####[address] [address] Eosinophils 0.10 10 3/mcL Normal 0.00-0.65 [facility] ([place]) Comment on above: Performed By: #### C BC, ADIFF, ANEU, PRO, GFR, CMP ####[place] [address] Eosinophils/100 leukocytes 2.5 % Normal 0.0-6.0 [facility] ([place]) Comment on above: Performed By: #### C BC, ADIFF, ANEU, PRO, GFR, CMP ####[address] [address] Lymphocytes 2.40 10 3/mcL Normal 0.90-4.32 [facility] ([place]) Comment on above: Performed By: #### C BC, ADIFF, ANEU, PRO, GFR, CMP ####[address] [address] Lymphocytes/100 leukocytes 43.3 % High 20.0-40.0 [facility] ([place]) Comment on above: Performed By: #### C BC, ADIFF, ANEU, PRO, GFR, CMP ####[address] [address] Monocytes 0.50 10 3/mcL Normal 0.09-1.40 [facility] ([place]) Comment on above: Performed By: #### C BC, ADIFF, ANEU, PRO, GFR, CMP ####[address] [address] Monocytes/100 leukocytes 9.4 % Normal 2.0-13.0 [facility] ([place]) Comment on above: Performed By: #### C BC, ADIFF, ANEU, PRO, GFR, CMP ####[address] [address] Neutrophils/100 WBC Auto (Bld) 44.1 % Low 50.0-75.0 [facility] ([place]) Comment on above: Performed By: #### C BC, ADIFF, ANEU, PRO, GFR, CMP ####[address] [address] .GFRon 05-17-2017 eGFR (non-black) mL/min/{1.73_m2} Normal [facility] ([place]) Comment on above: Result Comment: GFR Population [...] C BC, ADIFF, ANEU, PRO, GFR, CMP ####[place] [address] .NEUABSon 05-17-2017 Neutrophils 2.40 10 3/mcL Normal 2.25-8.10 [facility] ([place]) Comment on above: Performed By: #### C BC, ADIFF, ANEU, PRO, GFR, CMP ####[place] [address] CBCon 05-17-2017 Erythrocyte distribution width Auto Ratio (RBC) 12.8 % Normal 11.5-15.5 [facility] ([place]) Comment on above: Performed By: #### C BC, ADIFF, ANEU, PRO, GFR, CMP ####[place] [address] Erythrocytes (RBC) 3.96 10 6/mcL Low 4.10-5.30 [facility] ([place]) Comment on above: Performed By: #### C BC, ADIFF, ANEU, PRO, GFR, CMP ####[place] [address] Hematocrit (HCT) 37.3 % Normal 34.0-46.0 [facility] ([place]) Comment on above: Performed By: #### C BC, ADIFF, ANEU, PRO, GFR, CMP ####[place] [address] Hemoglobin mass conc (Bld) 13.1 G/dL Normal 12.0-16.0 [facility] ([place]) Comment on above: Performed By: #### C BC, ADIFF, ANEU, PRO, GFR, CMP ####[place] [address] MCH 33.0 pg Normal 27.0-33.0 [facility] ([place]) Comment on above: Performed By: #### C BC, ADIFF, ANEU, PRO, GFR, CMP ####[place] [address] MCHC mass conc (RBC) 35.1 G/dL Normal 32.0-36.0 [facility] ([place]) Comment on above: Performed By: #### C BC, ADIFF, ANEU, PRO, GFR, CMP ####[place] [address] MCV 94.2 fL Normal 80.0-99.0 [facility] ([place]) Comment on above: Performed By: #### C BC, ADIFF, ANEU, PRO, GFR, CMP ####[place] [address] Platelet mean volume (PMV) 7.4 fL Normal 6.6-10.5 [facility] ([place]) Comment on above: Performed By: #### C BC, ADIFF, ANEU, PRO, GFR, CMP ####[place] [address] Platelets 223 10 3/mcL Normal 150-450 [facility] ([place]) Comment on above: Performed By: #### C BC, ADIFF, ANEU, PRO, GFR, CMP ####[place] [address] WBC (Leukocytes) 5.50 10 3/mcL Normal 4.50-10.80 [facility] ([place]) Comment on above: Performed By: #### C BC, ADIFF, ANEU, PRO, GFR, CMP ####[place] [address] CMPon 05-17-2017 Albumin/Globulin Ratio 1.3 {ratio} Normal 0.9-1.6 [facility] ([place]) Comment on above: Performed By: #### C BC, ADIFF, ANEU, PRO, GFR, CMP ####[place] [address] Alk Phos 51 U/L Normal 38-126 [facility] ([place]) Comment on above: Performed By: #### C BC, ADIFF, ANEU, PRO, GFR, CMP ####[place] [address] Bili Total 0.6 mg/dL Normal 0.2-1.2 [facility] ([place]) Comment on above: Performed By: #### C BC, ADIFF, ANEU, PRO, GFR, CMP ####[place] [address] Globulin 2.9 G/dL Normal 1.5-3.8 [facility] ([place]) Comment on above: Performed By: #### C BC, ADIFF, ANEU, PRO, GFR, CMP ####[place] [address] Protein 6.7 G/dL Normal 6.0-8.5 [facility] ([place]) Comment on above: Performed By: #### C BC, ADIFF, ANEU, PRO, GFR, CMP ####[place] [address] Alanine aminotransferase (ALT) 25 U/L Normal 10-49 [facility] ([place]) Comment on above: Performed By: #### C BC, ADIFF, ANEU, PRO, GFR, CMP ####[place] [address] Albumin 3.8 G/dL Normal 3.2-4.8 [facility] ([place]) Comment on above: Performed By: #### C BC, ADIFF, ANEU, PRO, GFR, CMP ####[place] [address] Aspartate aminotransferase (AST) 15 U/L Normal 8-34 [facility] ([place]) Comment on above: Performed By: #### C BC, ADIFF, ANEU, PRO, GFR, CMP ####[place] [address] BUN/Creatinine Ratio 12.5 ratio Normal 10.0-22.0 [facility] ([place]) Comment on above: Performed By: #### C BC, ADIFF, ANEU, PRO, GFR, CMP ####[place] [address] Calcium 8.6 mg/dL Normal 8.4-10.1 [facility] ([place]) Comment on above: Performed By: #### C BC, ADIFF, ANEU, PRO, GFR, CMP ####[place] [address] Chloride 114 mmol/L High 98-110 [facility] ([place]) Comment on above: Performed By: #### C BC, ADIFF, ANEU, PRO, GFR, CMP ####[place] [address] CO2 22 mmol/L Normal 22-32 [facility] ([place]) Comment on above: Performed By: #### C BC, ADIFF, ANEU, PRO, GFR, CMP ####[place] [address] Creatinine 0.96 mg/dL Normal 0.50-1.20 [facility] ([place]) Comment on above: Performed By: #### C BC, ADIFF, ANEU, PRO, GFR, CMP ####[place] [address] Electrolyte Balance 7.0 mEq/L Normal 4.0-15.0 [facility] ([place]) Comment on above: Performed By: #### C BC, ADIFF, ANEU, PRO, GFR, CMP ####[place] [address] Glucose mass conc 88 mg/dL Normal 70-110 [facility] ([place]) Comment on above: Performed By: #### C BC, ADIFF, ANEU, PRO, GFR, CMP ####[place] [address] Potassium molar conc 3.9 mmol/L Normal 3.5-5.0 [facility] ([place]) Comment on above: Performed By: #### C BC, ADIFF, ANEU, PRO, GFR, CMP ####[place] [address] Sodium 143 mmol/L Normal 136-145 [facility] ([place]) Comment on above: Performed By: #### C BC, ADIFF, ANEU, PRO, GFR, CMP ####[place] [address] Urea nitrogen 12.0 mg/dL Normal 8.0-22.0 [facility] ([place]) Comment on above: Performed By: #### C BC, ADIFF, ANEU, PRO, GFR, CMP ####[place] [address] PROon 05-17-2017 INR Coag RelTime (PPP) 0.9 {INR} Normal [facility] ([place]) Comment on above: Result Comment: The [employer] (CHEST, 1992, 102:312S-25S)recommended therapeutic range for oral anticoagulant therapy is:LOW RISK: Prophylaxis of venous thrombosis INR: 2.0-3.0 Treatment of pulmonary embolism 2.0-3.0 Prevention of systemic embolism 2.0-3.0HIGH RISK: Mechanical prosthetic valves 2.5-3.5 Performed By: #### C BC, ADIFF, ANEU, PRO, GFR, CMP ####[place] [address] Prothrombin time (PT) Coag time (PPP) 10.9 s Normal 9.0-14.5 [facility] ([place]) Comment on above: Result Comment: Effe ctive 12/25/07, Protime results may be affected by some antibiotics (i.e. Ciprofloxacin, Azithromycin, Bactrim) which may potentiate the action of oral anticoagulants, with further increases in Protime/INR. Performed By: #### C BC, ADIFF, ANEU, PRO, GFR, CMP ####[place] [address] [facility] ABO/Rh Interp Positive Invalid Interpretation Code [facility] ([place]) Comment on above: Performed By: #### A BRI ANTIS ####[place] [address] [facility]2017 Antibody Screen Tango Negative Normal [facility] ([place]) Comment on above: Performed By: #### A BRI ANTIS ####[place] [address] Vital Signs Date Time Vital Sign Value Performing Clinician Stephani saunders 11-17-2024 22:32-0400 Body temperature 98.7 [degF] Dr. Deinse Cheng MD Work Phone: [facility] 11-17-2024 22:32-0400 Diastolic blood pressure 72 mm[Hg] Dr. Denise Cheng MD Work Phone: [facility] 11-17-2024 22:32-0400 Heart rate 87 /min Dr. Denise Cheng MD Work Phone: [facility] 11-17-2024 22:32-0400 Respiratory rate 20 /min Dr. Denise Cheng MD Work Phone: 5(099)894-241712 [place] [address] 11-17-2024 22:32-0400 SaO2% (BldA) [Mass fraction] 90 % Dr. Denise Cheng MD Work Phone: 3(977)457-182404 [place] [address] 11-17-2024 22:32-0400 Systolic blood pressure 104 mm[Hg] Dr. Denise Cheng MD Work Phone: 7(911)878-625604 [place] [address] 11-17-2024 16:43-0400 Body height 175.[address] Denise Cheng MD Work Phone: 0(077)272-219104 [place] [address] 11-17-2024 16:43-0400 Body mass index (BMI) [Ratio] 25.3 kg/m2 Dr. Denise Cheng MD Work Phone: 8(404)968-482204 [place] [address] 11-17-2024 16:43-0400 Body weight 77.[address] Denise Cheng MD Work Phone: 6(544)416-429304 [place] [address] 08-10-2024 09:37-0500 Body temperature 99.1 [degF] Dr. Denise Cheng MD Work Phone: 7(246)231-304004 [place] [address] 08-10-2024 09:37-0500 Diastolic blood pressure 60 mm[Hg] Dr. Denise Cheng MD Work Phone: 4(686)959-800804 [place] [address] 08-10-2024 09:37-0500 Heart rate 85 /min Dr. Denise Cheng MD Work Phone: 2(759)470-482504 [place] [address] 08-10-2024 09:37-0500 Respiratory rate 16 /min Dr. Denise Cheng MD Work Phone: 2(697)545-766504 [place] [address] 08-10-2024 09:37-0500 SaO2% (BldA) [Mass fraction] 97 % Dr. Denise Cheng MD Work Phone: 9(955)433-153804 [place] [address] 08-10-2024 09:37-0500 Systolic blood pressure 118 mm[Hg] Dr. Denise Cheng MD Work Phone: 2(566)838-256904 [place] [address] 07-28-2024 12:43-0500 Body height 175.[address] Denise Cheng MD Work Phone: 4(865)117-783104 [place] [address] 07-28-2024 12:43-0500 Body temperature 98.1 [degF] Dr. Denise Cheng MD Work Phone: 6(196)556-313904 [place] [address] 07-28-2024 12:43-0500 Diastolic blood pressure 68 mm[Hg] Dr. Denise Cheng MD Work Phone: 4(008)986-413704 [place] [address] 07-28-2024 12:43-0500 Heart rate 96 /min Dr. Denise Cheng MD Work Phone: 8(817)058-393404 [place] [address] 07-28-2024 12:43-0500 Respiratory rate 12 /min Dr. Denise Cheng MD Work Phone: 3(807)155-995504 [place] [address] 07-28-2024 12:43-0500 SaO2% (BldA) [Mass fraction] 98 % Dr. Denise Cheng MD Work Phone: 5(134)210-548104 [place] [address] 07-28-2024 12:43-0500 Systolic blood pressure 116 mm[Hg] Dr. Denise Cheng MD Work Phone: 6(867)816-047404 [place] [address] 04-03-2023 07:34-0400 SaO2% (BldA) [Mass fraction] 95 % Dr. Denise Cheng Work Phone: 1(934)599-754704 [place] [address] 04-03-2023 07:23-0400 Body height 175.[address] Denise Cheng Work Phone: 8(796)824-791204 [place] [address] 04-03-2023 07:23-0400 Body mass index (BMI) [Ratio] 29.7 kg/m2 Dr. Denise Cheng Work Phone: 5(633)093-478304 [place] [address] 04-03-2023 07:23-0400 Body temperature 98.3 [degF] Dr. Denise Cheng Work Phone: 1(047)496-916804 [place] [address] 04-03-2023 07:23-0400 Body weight 91.[address] Denise Cheng Work Phone: 7(849)343-451704 [place] [address] 04-03-2023 07:23-0400 Diastolic blood pressure 81 mm[Hg] Dr. Denise Cheng Work Phone: [facility] 04-03-2023 07:23-0400 Heart rate 96 /min Dr. Denise Cheng Work Phone: [facility] 04-03-2023 07:23-0400 Respiratory rate 16 /min Dr. Denise Cheng Work Phone: [facility] 04-03-2023 07:23-0400 Systolic blood pressure 120 mm[Hg] Dr. Denise Cheng Work Phone: [facility] 01-20-2022 14:04-0400 Body height 175.[address] Denise Cheng Work Phone: [facility] Work Phone: 01-20-2022 14:02-0400 Body mass index (BMI) [Ratio] 28.7 kg/m2 Dr. Denise Cheng Work Phone: [facility] Work Phone: 01-20-2022 14:02-0400 Body temperature 97.6 [degF] Dr. Denise Cheng Work Phone: [facility] Work Phone: 01-20-2022 14:02-0400 Body weight 88.[address] Denise Cheng Work Phone: [facility] Work Phone: 01-20-2022 14:02-0400 Diastolic blood pressure 76 mm[Hg] Dr. Denise Cheng Work Phone: [facility] Work Phone: 01-20-2022 14:02-0400 Heart rate 91 /min Dr. Denise Cheng Work Phone: [facility] Work Phone: 01-20-2022 14:02-0400 Respiratory rate 16 /min Dr. Denise Cheng Work Phone: [facility] Work Phone: 01-20-2022 14:02-0400 SaO2% (BldA) [Mass fraction] 94 % Dr. Denise Cheng Work Phone: [facility] Work Phone: 01-20-2022 14:02-0400 Systolic blood pressure 121 mm[Hg] Dr. Denise Cheng Work Phone: [facility] Work Phone: 10-21-2021 10:55-0400 Body height 175.[address] Denise Cheng Work Phone: [facility] Work Phone: 10-21-2021 10:55-0400 Body mass index (BMI) [Ratio] 29 kg/m2 Dr. Denise Cheng Work Phone: [facility] Work Phone: 10-21-2021 10:55-0400 Body temperature 97.5 [degF] Dr. Denise Cheng Work Phone: [facility] Work Phone: 10-21-2021 10:55-0400 Body weight 89.[address] Denise Cheng Work Phone: [facility] Work Phone: 10-21-2021 10:55-0400 Diastolic blood pressure 89 mm[Hg] Dr. Denise Cheng Work Phone: [facility] Work Phone: 10-21-2021 10:55-0400 Heart rate 79 /min Dr. Denise Cheng Work Phone: [facility] Work Phone: 10-21-2021 10:55-0400 Respiratory rate 16 /min Dr. Denise Cheng Work Phone: [facility] Work Phone: 10-21-2021 10:55-0400 SaO2% (BldA) [Mass fraction] 98 % Dr. Denise Cheng Work Phone: [facility] Work Phone: 10-21-2021 10:55-0400 Systolic blood pressure 133 mm[Hg] Dr. Denise Cheng Work Phone: [facility] Work Phone: 10-06-2021 14:09-0400 Body mass index (BMI) [Ratio] 29.5 kg/m2 Dr. Denise Cheng Work Phone: [facility] Work Phone: 10-06-2021 14:09-0400 Body temperature 98.4 [degF] Dr. Denise Cheng Work Phone: [facility] Work Phone: 10-06-2021 14:09-0400 Body weight 90.[address] Denise Cheng Work Phone: [facility] Work Phone: 10-06-2021 14:09-0400 Diastolic blood pressure 85 mm[Hg] Dr. Denise Cheng Work Phone: [facility] Work Phone: 10-06-2021 14:09-0400 Heart rate 102 /min Dr. Denise Cheng Work Phone: [facility] Work Phone: 10-06-2021 14:09-0400 Respiratory rate 16 /min Dr. Denise Cheng Work Phone: [facility] Work Phone: 10-06-2021 14:09-0400 SaO2% (BldA) [Mass fraction] 97 % Dr. Denise Cheng Work Phone: [facility] Work Phone: 10-06-2021 14:09-0400 Systolic blood pressure 123 mm[Hg] Dr. Denise Cheng Work Phone: [facility] Work Phone: Encounters Encounter Date Encounter Type Care Provider Facility Start: 11-19-2024 ambulatory Denise Cheng Facility:[facility] Start: 11-17-2024 ambulatory Denise [place] Facility:[facility] Start: 11-17-2024 Evaluation and manag ement of inpatient Dr. Esther Gaspar MD -Progressive Care Unit Work Phone: Start: 10-31-2024 End: 10-31-[address] Denise Cheng MD Work Phone: [facility] Work Phone: Start: 10-31-2024 End: 10-31-[address] Denise Cheng MD -[facility] Work Phone: Start: 10-31-2024 End: 10-31-2024 ambulatory Denise Cheng Facility:[facility] Start: 10-07-2024 Encounter for other preprocedural examination Saul Bazan [facility] Start: 10-01-2024 End: 10-01-2024 Non-patient / Non-visit Dr. Giancarlo Hammer MD -[facility] Work Phone: Start: 10-01-2024 End: 10-01-[address] Denise Cheng MD Work Phone: [facility] Work Phone: Start: 10-01-2024 End: 10-01-[address] Saul Bazan DO -Pulmonary Services/Neurology Work Phone: Start: 10-01-2024 End: 10-01-2024 ambulatory Denise Cheng Facility:[facility] Start: 09-03-2024 End: 09-03-[address] Denise Cheng MD Work Phone: [facility] Work Phone: Start: 09-03-2024 End: 09-03-[address] Denise Cheng MD -Outpatient Breast Imaging Work Phone: Start: 09-03-2024 End: 09-03-2024 ambulatory Denise Cheng Facility:[facility] Start: 08-10-2024 End: 08-10-2024 Patient encounter procedure Farida Denis BI[employer]EDICAL SERVICE ENGINEER[employer]C [facility] Work Phone: Start: 08-10-2024 End: 08-10-2024 ambulatory Denise Cheng Facility:[facility] Start: 07-29-2024 End: 07-29-2024 Patient encounter procedure dAilson Plasencia Tasha [facility] -Laboratory, Specimen Work Phone: Start: 07-28-2024 End: 07-28-2024 Patient encounter procedure Adilson Plasencia Tasha BIOMEDICAL SERVICE ENGINEER-C -[facility] Work Phone: Start: 07-28-2024 End: 07-29-2024 ambulatory Denise Cheng Facility:[facility] Start: 04-15-2024 End: 04-15-2024 ambulatory Denise Cheng [facility] Start: 01-25-2024 End: 01-25-2024 ambulatory Denise Cheng Facility:[facility] Start: 11-29-2023 End: 11-29-2023 ambulatory Denise Cheng Facility:[facility] Start: 08-15-2023 End: 08-15-2023 ambulatory [facility] Work Phone: Start: 08-15-2023 End: 08-15-2023 Patient encounter procedure [facility]-Outpatient Breast Imaging Work Phone: Start: 06-20-2023 End: 06-20-2023 ambulatory [facility] Work Phone: Start: 06-20-2023 End: 06-20-2023 Discharged Recurring [facility]-Physical Therapy Work Phone: Start: 06-20-2023 Registered Recurring [facility]-Physical Therapy Work Phone: Start: 06-14-[address] Denise Cheng Work Phone: [facility]-Physical Therapy Work Phone: Start: 06-09-2023 End: 06-09-[address] Denise Cheng Work Phone: [facility] Work Phone: Start: 06-09-2023 End: 06-09-[address] Denise Cheng Work Phone: [facility]-Laboratory, [place] Work Phone: Start: 05-16-2023 End: 05-16-[address] Denise Cheng Work Phone: [facility]-Radiology, [place] Work Phone: Start: 04-03-2023 End: 04-03-[address] Denise Cheng Work Phone: [facility] Work Phone: Start: 02-01-2023 End: 02-01-2023 ambulatory [facility] Facility:[facility] Start: 02-01-2023 End: 02-01-2023 Subsequent hospital visit by physician [facility] Work Phone: Radiology Comment on above: Plantar fascial fibr omatosis [M72.2] Start: 01-12-2023 End: 01-12-2023 ambulatory [facility] Work Phone: Start: 01-12-2023 End: 01-12-2023 Patient encounter procedure [facility]-Ultrasound, [facility] Work Phone: Start: 11-12-2022 End: 11-12-2022 ambulatory [facility] Work Phone: Start: 11-12-2022 End: 11-12-2022 Patient encounter procedure [facility]-MRI - [facility] Start: 11-09-2022 End: 11-09-2022 ambulatory [facility] Work Phone: Start: 11-09-2022 End: 11-09-2022 Patient encounter procedure [facility], [place] Start: 10-27-2022 End: 10-27-2022 Discharged Recurring [facility]-Physical Therapy Start: 09-22-2022 End: 09-22-2022 ambulatory [facility] Work Phone: Start: 09-22-2022 End: 04-13-2023 [facility] Start: 03-24-2022 End: 03-24-[address] Denise Cheng Work Phone: [facility] Work Phone: Start: 03-24-2022 End: 03-24-[address] Denise Cheng Work Phone: [facility]-Outpatient Breast Imaging Start: 01-20-2022 End: 01-20-[address] Denise Cheng Work Phone: [facility] Start: 01-13-2022 End: 01-13-[address] [facility] Start: 10-21-2021 End: 10-21-[address] Denise Cheng Work Phone: [facility] Start: 10-19-2021 End: 10-19-[address] Denise Cheng Work Phone: [facility]-Cat Scan, [facility] Start: 10-06-[address] Denise Cheng Work Phone: [facility] Start: 10-06-2021 End: 10-06-[address] Denise Cheng Work Phone: [facility] Start: 09-09-2021 End: 09-09-[address] Denise Cheng Work Phone: [facility]-Ultrasound, [facility] Start: 08-03-2021 End: 08-03-[address] Denise Cheng Work Phone: [facility], [facility] Start: 08-02-2021 End: 08-02-[address] Denise Cheng Work Phone: [facility] Start: 07-26-2021 End: 07-26-[address] Denise Cheng Work Phone: [facility] Start: 06-02-2017 End: 06-05-2017 Evaluation and management [...] Work Phone: Comment on above: Performed at: [address] [id number] Director: Dominick De La Rosa PhD, Phone: [phone] Start: 09-03-2024 Screening mammography Gale Cheng MD [...] DTaP,Tdap,Td Vaccine (2 - Td or Tdap) [facility] Start: 11-17-2024 Electrocardiographic procedure [facility] Start: 11-17-2024 Verification routine [facility] Start: 11-17-2024 Admission procedure [facility] Start: 11-17-2024 Hospital admission, emergency, from emergency room, medical nature [facility] Start: 11-17-2024 [facility] Start: 02-10-2023 Covid-19 Vaccine ( season) Covid-19 Vaccine ( season) [facility] Start: 02-10-2023 Influenza vaccination Influenza Vaccine (#1) [facility] Start: 06-12-2022 Depression Assessment Depression Assessment [facility] Start: 10-04-2019 Colonoscopy Colonoscopy [facility] Start: 10-04-2019 Colorectal Cancer Screening Colorectal Cancer Screening [facility] Start: 10-31-2015 Shingrix Vaccine (1 of 2) Shingrix Vaccine (1 of 2) [facility] Start: 2010 Cologuard (FIT-DNA) Cologuard (FIT-DNA) [facility] Start: [address] Colonography [facility] Start: 2010 Diabetes Screening Diabetes Screening [facility] Start: 2010 Fecal Occult Blood Fecal Occult Blood [facility] Start: 2010 Lipid 1996 panel - Serum or Plasma Lipid Screening [facility] Start: 2010 Sigmoidoscopy Sigmoidoscopy [facility] Start: 04-20-2010 HPV Testing HPV Testing [facility] Start: 04-20-2010 Pap Testing Pap Testing [facility] Start: 2005 Mammography Mammogram Screening [facility] Start: 10-31-1983 Hepatitis C Screening Hepatitis C Screening [facility] Start: 10-31-1983 HIV Screening HIV Screening [facility] Start: 1965 Hepatitis B Vaccine (1 of 3 - 3-dose series) Hepatitis B Vaccine (1 of 3 - 3-dose series) [facility] Amphetamines [Presen ce] in Urine by Screen method >1000 ng/mL [facility] Benzodiazepine measu rement, urine [facility] C reactive protein [Mass/volume] in Serum or Plasma [facility] Cocaine measurement, urine [facility] Erythrocyte sedimentation rate [facility] fentaNYL [Presence] in Urine by Screen method [facility] Magnesium measurement [facility] Methadone measurement, urine [facility] Patient referral [facility] Work Phone: Phencyclidine [Prese nce] in Urine [facility] Urine cannabinoid measurement [facility] Urine opiate measurement [facility] Immunizations Immunization Date Immunization Notes Care Provider Shantanu ho 03-08-2022 influenza virus vaccine, unspecified formulation [employer] Work Phone: [facility] 01-21-2020 tetanus toxoid, redu rima diphtheria toxoid, and acellular pertussis vaccine, adsorbed [employer] Work Phone: [facility] Work Phone: Payers Date Payer Category Payer Self-pay [id number] 2022 Unknown [employer] PPO [id number] 2022-Present [phone] [facility] [id number] [place] [address] PPO [id number] 2017 Unknown [id number] 2017 Unknown [id number] 2013 Unknown [id number] Unknown [id number] Unknown [id number] Unknown [id number] Unknown [id number] Unknown [id number] Unknown [id number] Unknown [id number] Unknown [id number] Unknown [id number] Unknown [id number] Unknown [id number] Unknown [id number] Unknown [id number] [id number] Unknown [id number] [id number] Unknown [id number] [id number] Unknown [id number] Unknown [id number] Social History Date Type Detail Facility Start: 10-06-2021 End: 04-03-2023 Tobacco smoking status VTIS Unknown if ever smoked [facility] Start: 12-05-2019 Non-smoker [facility] Start: 1965 Sex Assigned At Female [facility] Start: 07-25-2017 End: 11-17-2024 Tobacco smoking status VTIS Never smoked tobacco [facility] Start: 07-25-2017 Tobacco use and exposure Smokeless tobacco non-user [facility] Start: 02-01-2023 Alcohol intake Current drinke r of alcohol (finding) [facility] Start: 02-01-2023 History of Social function [facility] Start: 02-01-2023 Tobacco use panel [facility] National Score (1-100), lower number is lower risk 65 [facility] Start: 1965 Sex Assigned At Not on file [facility] Start: 09-09-2024 End: 10-04-2024 Sex Female (finding) [facility] Goals Date Patient Goal Desired Activity /State Mental Status Date Assessment Result Facility 11-17-2024 Cognitive function Voice/Name [facility] Work Phone: Clinical Notes 02-01-2023 to 11-17-2024 Note Date & Type Note Facility 11-17-2024 History and physi syed note [facility] 11-17-2024 Discharge summary [facility] 11-17-2024 Radiology Diagnostic study note [facility] Imaging Services [address] [place], [place] [address] CTA Chest W/WO Contrast MR#: [id number] Acct: [id number] Name: YUMIKO SINGH Rep #: [id number] : 1965 F 59 From: Ashely Mulligan MD PCP: Dr. Denise Cheng MD Status: REG ER Study:CTA Chest W/WO Contrast Date of Exam: 11/17/24 Exam# [id number] Ordering Dr: Eva Felix DO PROCEDURE: CTA [...] 3. Trace left pleural effusion. Reading Location: [id number] CC: Dr. Natalia Felix DO; Dr. Denise Cheng MD ~ Balance Wheel Motion Inspector: Signed [facility] 11-17-2024 Radiology Diagnostic study note [facility] Imaging Services [address], [place] [id number] Chest PA and Lateral MR#: [id number] Acct: [id number] Name: YUMIKO SINGH Rep #: [id number] : 1965 F 59 From: Ashely Mulligan MD PCP: Dr. Denise Cheng MD Status: REG ER Study:Chest PA and Lateral Date of Exam: 11/17/24 Exam# [id number] Ordering Dr: Eva Felix DO PROCEDURE: CHEST [...] Lateral IMPRESSION: NO ACUTE FINDINGS. Reading Location: [id number] CC: Dr. Natalia Felix DO; Dr. Denise Cheng MD ~ Balance Wheel Motion Inspector: Signed [facility] 11-17-2024 Discharge summary Note Date/Time November 17, 2024 10:24pm [facility] Medical Records Department [address] [place] [address] Emergency Department Summary 11/17/24 MR#: [id number] Acct: [id number] Name: YUMIKO SINGH Rep #:[id number] : [...] repair surgery on her knee thiscoming Monday. [facility] Medical History (Updated 11/17/24 [...] 40.4 L Lymph % (Auto) 46.6 H Desha % (Auto) 10.2 H Eos % (Auto) [...] 19:18 IMPRESSION: NO ACUTE FINDINGS. Reading Location: [facility] Chest CTA 11/17/24 20:36 IMPRESSION: 1. No acute pulmonary embolism. 2. Ectasia of the main pulmonary artery and enlargement of the distal pulmonary arteries, which can be seen with pulmonary hypertension. 3. Trace left pleural effusion. Reading Location: [facility] Rhythm Strip Rhythm Strip: Sinus Rhythm Rate: [...] MD [Primary Care Provider] - Print Language: Kazakh Disposition Disposition: Acute Care Hospital [facility] What to do if you have Problems For any increased pain, shortness of breath, bleeding, nausea or vomiting, chestpain, or any unexpected problems, contact your Primary Care Provider. Call [facility] ([phone]) or report to the closest Emergency Room. Call 911 if necessary. 11/17/244 <Electronically signed by Natalia Felix DO> Cosigner Signature (if applicable): CC: Dr. Denise Cheng MD ~ Signed [facility] Work Phone: 1(514) 190-834402-16-2025 Evaluation note* Diagnosis Onset Date Resolution Status Admit Date [facility]inary tract infection [facility] 12:44[facility] Viral URI with cough acute [facility] 2024 9:22am [facility] Work Phone: 1(909) 435-523002-16-2025 Evaluation note* Diagnosis Onset Date Resolution Status Admit Date Urinary tract infection noneactive F [facility] 2024 12:44pm Viral URI with cough acute [facility] h 2024 9:22am Chest pain acute November 17, 2024 10:34pm [facility] Work Phone: 1(298) 318-455704-05-2024 Discharge summary Author Ricardo Salvador [facility] September 15, 2023 8:26am Note Date/Time September 15, 2023 8:26 am [facility] Physical Therapy [facility] [address] [place] [address] [address] [place] [address] / REHABILITATION SERVICES DISCHARGE SUMMARY MR#: [id number] Acct: [id number] Name: YUMIKO SINGH Rep #: [id number] : 1965 57 From: Ricardo Anna Referring Dr.: Dr. Denise Chneg MD Status: REG [facility] Insurance: ANTH SEL[employer] PAY INSURANCE Patient Information [...] Dr. Denise Cheng MD ~ CLS Signed [facility] Work Phone: 1(779) 139-278808-23-2023 NoteHNO ID: [id number] Author: Sherlyn Garcia RN Service: ? Author [...] to utilize the above equipment. Sherlyn Garcia [facility]NP[facility]08-[facility]-2023 NoteHNO ID: [id number] Author: Jared Bernard Service: ? Author Type: [...] mood. Does not a (more content not included)...[facility] 02-01-2023 NoteHNO ID: [id number] Author: Sherlyn Garcia RN Service: ? Author [...] under her toes. XR completed today to review.[facility]08-23-2023 NoteHNO ID: [id number] Author: Estrellita Hoyt RT(R) Service: Radiology Author [...] BY: RT Rivas(R) February 01, 2023 1:39 [facility]08-23-2023 History of Present illness Narrative* Estrellita [...] 01, 2023 1:39 PM [facility]* Diagnosis Onset Date Resolution Status Easy bruising chronic Splenomegaly chronic Easy bruising chronic Splenomegaly chronic [facility] Work Phone: Evaluation note* Diagnosis Onset Date Resolution Status Splenomegaly chronic [facility] Work Phone: Evaluation noteNo assessment information available [facility] Work Phone: Evaluation note* Diagnosis Plantar fascial fibromatosis documented in this encounter [facility] note* Diagnosis Onset Date Resolution Status Acute sinusitis, unspecified acute Contact with or exposure to other viral diseases acute [facility] Work Phone: History and physical note Author Esther Gaspar [facility] Note Date/Time November 17, 2024 10:37 pm [facility] Medical Records Department [address] [place] [address] H&P Exam - Hospitalist 11/17/24 2213 MR#: [id number] Acct: [id number] Name: YUMIKO SINGH Rep #:[id number] : 1965 59 From: Esther Gaspar MD PCP: Dr. Denise Cheng MD Status:ADM IN Location: [facility] [id number]- 1 HPI - General General Date of Admission: 11/17/24 Date of Service: 11/17/24 Chief Complaint: Chest pain HPI Narrative The patient is a 59 y/o F w/ PMHx: Anxiety and Depression/ADHD, Chronic migraines, OA who presents to the [facility] ED on 11/17/2024 withhistory of onset chest [...] 1, cyclobenzaprine 10 mg p.o. x 1. [facility] Medical History ADHD Anxiety and depression Hx [...] 40.4 L, Lymph % (Auto) 46.6 H, Desha % (Auto) 10.2 H, Eos % (Auto) [...] 19:18 IMPRESSION: NO ACUTE FINDINGS. Reading Location: [facility] Chest CTA 11/17/24 20:36 IMPRESSION: 1. No acute pulmonary embolism. 2. Ectasia of the main pulmonary artery and enlargement of the distal pulmonary arteries, which can be seen with pulmonary hypertension. 3. Trace left pleural effusion. Reading Location: [facility] Assessment & Plan Assessment/Plan (1) Chest pain: PLAN: Plan The patient is a 59 y/o F w/ PMHx: Anxiety and Depression/ADHD, Chronic migraines, OA who presents to the [facility] ED on 11/17/2024 withhistory of onset chest [...] prophylaxis: Lovenox. Charges/Coding Visit Charges Inpatient E&M: 22085 Init Hosp L3 11/17/242236 <Electronically signed by Esther Gaspar MD> Cosigner Signature (if applicable): CC: Dr. Esther Gaspar MD; Dr. Denise Cheng MD~ Signed [facility] Work Phone: [employer] for referral (narrative)* Diagnostic Procedure Only (Routine) - Closed Specialty Diagnoses / Procedures Referred By Contac t Referred To Contact XR IMAGING Diagnoses Plantar fascial fibromatosis Procedures XR FOOT GENERAL 3V AP/LAT/OBL BILATERAL RADEX FOOT COMPLETE MINIMUM 3 VIEWS Jared Bernard [address] [place] [address] [place] [id number] Referral ID Status Reason Start Date Expiration Date V isits Requested Visits Authorized [id number] Closed Auto-Generate d Referral 01/30/2023 02/29/2024 1 1 [facility] for referral (narrative)No reason for referral information [facility] Work Phone: Reason for visit Narrative* Diagnostic Procedure Only (Routine) - Closed Specialty Diagnoses / Procedures Referred By Contzelda t Referred To Contact XR IMAGING Diagnoses Plantar fascial fibromatosis Procedures XR FOOT GENERAL 3V AP/LAT/OBL BILATERAL RADEX FOOT COMPLETE MINIMUM 3 VIEWS Jared Bernard[address] [place] [address] [place] [id number] Referral ID Status Reason Start Date Expiration Date V isits Requested Visits Authorized [id number] Closed Auto-Generate d Referral 01/30/2023 02/29/2024 1 1 [facility] Summary Purpose Family History No Family History Records Found Relationship Condition Age at Onset Recorded Date/T meaghan mother Disorder of thyroid Unknown Advance Directives No Advanced Directives Records Found Advance Directive Response Recorded Date/ Time Living Will No December 05, 2019 11:10am Power of Military Lawyer No December 04 0 11:10am Advance Directive Response Recorded Date/ Time Living Will No December 05, 2019 10:10am Power of Military Lawyer No December 04 0 10:10am Advance Directive Response Recorded Date/ Time Do you have a Healthcare Power of Military Lawyer? No November 17, 2024 4:45pm Chief Complaint [...] section and content) DATE CREATED AUTHOR 12/04/2017 [facility] DATE CREATED AUTHOR AUTHOR'S ORGANIZ ATION 02/05/2023 [facility] DATE CREATED AUTHOR AUTHOR'S ORGANIZ ATION 11/17/2024 [facility] Care Teams (unrecognized sec tion and content) [...] MD Attending Provider, Referrin g Provider Active Drums Teacher Relationship Specialty Start Date End Date Denise [...] MD Primary Care Provider Active Ciera Granados BIOMEDICAL SERVICE ENGINEER-C Attending Provider, Referr ing Provider Active Team [...] End: July 28, 2024 Adilson Cordova NP, BIOMEDICAL SERVICE ENGINEER-C Attending Provider Active S tart: July 28, 2024 End: July 28, 2024 Team Status: Inactive Member Role Status Dates Dr. Denise Cheng MD Primary Care Provider Active Start: July 29, 2024 End: July 29, 2024 Adilson Cordova BIOMEDICAL SERVICE ENGINEER, BIOMEDICAL SERVICE ENGINEER-C Attending Provider Active S tart: July 29, [...] or prosecute any alcohol or drug abuse patient.[facility] FOR RECORDS PERTAINING TO PATIENTS WHO ARE [...] BE BASED ON THE PRIMARY CLINICAL RECORDS. [facility]. provides no warranty or guarantee of the accuracy or completeness of information in this document.
[2024-11-18 05:29] VITALS: BP 111/82; PULSE 69; RESP 16; TEMP 36.7; O2SAT 93
--- NOTE | 2024-11-18 05:55 | ECHOD_ITS ---
Reason For Study Reason For Study: CHEST PAIN Procedure This was a 2D Doppler, Color Flow transthoracic echocardiogram. Exam performed in department. Left Ventricle Normal size and thickness. The LV systolic function is normal. EF is 65 %. Normal diastology for age. Right Ventricle Normal right ventricle. Atria The left and right atria are normal. Hypermobile atrial septum. Mitral Valve Trivial mitral valve insufficiency. Tricuspid Valve Trivial tricuspid valve insufficiency. Normal pulmonary artery pressure. Aortic Valve There is no aortic stenosis. Tricuspid aortic valve. Possible small Lambl's excrescence. No aortic valve insufficiency. Pulmonic Valve Mild (1+) pulmonic valve insufficiency. Great Vessels Mildly dilated aortic root. Pericardium/Pleural No pericardial effusion. MMode/2D Measurements & Calculations LVIDd: 4.3 cm IVSd: 1.0 cm Ao root diam: 3.6 cm LVIDs: 3.2 cm LVPWd: 1.0 cm RVDd: 3.3 cm FS: 26.0 % LAV(MOD-bp): 30.9 ml LVAd ap4: 27.3 cm2 SV(MOD-sp4): 52.0 ml LAV(MOD-bp) Indexed: 15.4 ml/m2 LVLd ap4: 7.9 cm SI(MOD-sp4): 26.0 ml/m2 LAV(MOD-sp2): 30.8 ml EDV(MOD-sp4): 78.2 ml LAV(MOD-sp4): 30.7 ml EDV(sp4-el): 80.1 ml LVAs ap4: 13.7 cm2 LVLs ap4: 6.1 cm ESV(MOD-sp4): 26.2 ml ESV(sp4-el): 26.1 ml EF(MOD-sp4): 66.5 % EF(sp4-el): 67.5 % SV(sp4-el): 54.0 ml LA A4 area: 14.0 cm2 LA dimension(2D): 3.5 cm RA A4 area: 11.9 cm2 TAPSE: 2.2 cm Time Measurements MV dec time: 0.21 sec Doppler Measurements & Calculations MV E max francisco: 65.7 cm/sec Lat Peak E' Francisco: 15.8 cm/sec Med Peak E' Francisco: 9.4 cm/sec MV A max francisco: 75.2 cm/sec E/E' lat: 4.2 E/E' med: 7.0 MV E/A: 0.87 Ao V2 max: 140.0 cm/sec LV V1 max: 121.7 cm/sec PA V2 max: 80.2 cm/sec Ao max P.8 mmHg LV V1 max P.9 mmHg TR max francisco: 263.1 cm/sec TR max P.7 mmHg ECHO/Echo Complete Interpretation Summary The LV systolic function is normal. EF is 65 %. Hypermobile atrial septum. Tricuspid aortic valve. Possible small Lambl's excrescence. Mild (1+) pulmonic valve insufficiency. Mildly dilated aortic root. Ordering Physician: Esther Gaspar Referring Physician: DENISE HILARIO Performed By: Kanchan Olivia RDCS
[2024-11-18 06:13] LABS: Absolute Lymphocyte Count 3.02 X10^3/uL (0.83-4.51); Absolute Neutrophil Count 2.7 X10^3/uL (2.0-7.7); Basophil# 0.05 X10^3/uL; Basophil% 0.7 % (0-1); Eosinophil# 0.12 X10^3/uL; Eosinophils% 1.8 % (0-5); Hematocrit 37.1 % (37-47); Hemoglobin 12.3 g/dL (12.0-15.0); Lymphocyte # 3.02 X10^3/ul (0.83-4.51); Mean Corp Hgb Conc 33.2 g/dL (32-36); Mean Corpuscular Hgb 31.5 pg (27.0-32.0); Mean Corpuscular Volume 94.9 fL (81-99); Mean Platelet Vol. 8.9 fl (6.2-12.0); Monocyte# 0.78 X10^3/uL; Monocyte% 11.6 % (0-10); NRBC Flagged by Analyzer 0 % (0-5); Neutrophil # 2.73 X10^3/uL (2.7-7.7); Neutrophil % 40.8 % (47-70); Platelet Count 233 K/mm3 (150-450); RBC Distribution Width CV 13.1 % (11.6-14.6); RBC Distribution Width SD 45.1 fl (35.1-43.9); Red Blood Count 3.91 M/mm3 (4.2-5.4); White Blood Count 6.7 K/mm3 (4.4-11.0)
[2024-11-18 07:00] LABS: Troponin T High Sensitivity 79 ng/L (<=14)
[2024-11-18 07:17] LABS: Cholesterol 167 mg/dL (<=200); High Density Lipoprotein 27 mg/dL; Low Density Lipoprotein Calc. 90 mg/dL; Triglycerides 249 mg/dL; Very Low Density Lipoprotein 50 mg/dL (5-40); cholesterol:hdl ratio screen 6.16
[2024-11-18 07:19] LABS: ALB/GLOB Ratio 1.4 RATIO (0.9-2.4); AST(SGOT) 27 U/L (<=31); Alanine Aminotransfer ALT/SGPT 34 U/L (<=34); Albumin, Serum 3.6 g/dL (3.5-5.0); Alkaline Phosphatase 53 U/L (35-104); Anion Gap 10 (5-15); BUN 13 mg/dL (4-19); BUN/Creat Ratio 19.5 RATIO (10-20); Carbon Dioxide 23.4 mmol/L (21.0-32.0); Chloride 108 mmol/L (98-108); Creatinine, Serum 0.68 mg/dL (0.70-1.20); EST Glomerular Filtration Rate 100 (>60); Estimated Creatinine Clearance 103.44 ml/min (50-250); Globulin 2.6 g/dL (2.2-4.2); Glucose 93 mg/dL (70-99); Potassium 3.9 mmol/L (3.3-5.1); Protein, Total 6.3 g/dL (5.9-8.4); Sodium Level 142 mmol/L (133-145); Total Bilirubin 0.52 mg/dL (0.00-1.30)
[2024-11-18 10:06] VITALS: O2SAT 94
--- NOTE | 2024-11-18 10:46 | STRESSREP_ITS ---
Stress Test Report Date: 11/18/2024 Procedure: Pharmacologic stress nuclear imaging study Indications: Chest pain Consent: Per the patient Procedure: The patient underwent pharmacologic (Regadenoson 0.4mg ) evaluation with a peak heart rate of 96 beats per minute (59%predicted maximal heart rate) and a peak blood pressure of 116/68 mmHg. The baseline ECG demonstrated sinus rhythm. The peak pharmacologic ECG did not show any ischemic changes. There were no cardiac dysrhythmias pretest, during pharmacologic infusion, or recovery. Patient had sharp chest discomfort prior to the test which continued without any change during infusion and in recovery. The patient was injected with 11.8 millicuries of technetium 99m Cardiolite and subsequently rest SPECT Cardiolite nuclear imaging was obtained in the horizontal long, vertical long, and short axis views. The patient underwent pharmacologic (Regadenoson) evaluation. The patient was injected with 34.5 millicuries of technetium 99m Cardiolite and subsequently stress SPECT Cardiolite nuclear imaging was obtained in the horizontal long, vertical long, and short axis views. A gated Cardiolite study at peak stress was obtained. The examination was stopped secondary to completion of protocol. Rest and stress SPECT Cardiolite nuclear imaging status post realignment, normalization, and attenuation correction demonstrate no fixed or reversible perfusion defects. There is end systolic thickening and brightening. The gated Cardiolite study demonstrates myocardial thickening and inward wall motion. The reported LVEF is 80%. Impression: 1. Pharmacologic (Regadenoson) evaluation 2. Peak pharmacologic ECG with no ischemic changes. 3. There were no cardiac dysrhythmias pretest, during pharmacologic infusion, or recovery. 5. Rest and stress SPECT Cardiolite nuclear imaging demonstrate relative uniform tracer uptake and myocardial perfusion appearing within normal limits. 6. The gated Cardiolite study reports an LVEF of 80%. This note was generated with [employer] software. It may contain incorrect words, spelling, and punctuation that were not noted in checking the note before signing.
[2024-11-18 11:05] VITALS: BP 111/76; PULSE 75; RESP 18; TEMP 36.7; O2SAT 95
[2024-11-18] MEDS: Aspirin E.C. 81 MG Tablet PO (11:12)
[2024-11-18] MEDS: DULoxetine Hcl 20 MG Capsule 40 MG PO (11:12)
[2024-11-18] MEDS: Enoxaparin 40 MG/0.4 ML Syringe SC (11:12)
[2024-11-18] MEDS: Lidocaine 5% Patch 1 PATCH TOPICAL (12:01)
--- NOTE | 2024-11-18 15:50 | DCINST_ITS ---
Discharge Instructions Diet Discharge Diet: Low fat / Low cholesterol DC O2, CPAP, BIPAP needs Home O2 Discharge instructions: No Dressing / Incision Discharge Activity: Return to Normal Activity Weight Bearing Status: Weight bearing as tolerated Dressing / Incision Call your doctor if you observe: Fever of 101 or Higher, Shortness of breath, Dizziness, Swelling in the ankles, Chest pain and Increased palpitations (irregular heartbeat) Follow Up Care Test Results: Test results from this visit will be discussed in further detail at your follow- up appointment, if applicable. Discharge Plan Admission Admit Date/Time: 11/17/24 22:15 Primary Reason for Your Visit: chest pain Attending Provider: Barby Louise Primary Care Provider: Kev Cheng Consulting Providers: Esther Gaspar Instructions Patient Instructions: ED Chest Pain, Noncardiac Discharge Orders/Prescriptions Prescriptions: New lidocaine 1.8 % adhesive patch,medicated 1 patch topical DAILY Qty: 30 0RF Rx Instructions: leave on most painful area for up to 12 hrs Continued ascorbate calcium (vitamin C) 500 mg tablet 500 mg PO DAILY PNV,calcium 85-vqzh-eortj acid 27 mg iron- 1 mg tablet PO DAILY Patient Comments: TAKE 1 TABLET BY MOUTH EVERY DAY DO NOT TAKE AT SAME TIME FERROUS GLUCONATE duloxetine 40 mg capsule,delayed release(DR/EC) 40 mg PO DAILY magnesium oxide 500 mg capsule 1,000 mg PO DAILY vitamin B complex Tablet 1 tab PO DAILY rizatriptan 10 mg tablet 10 mg PO .COMPLEX PRN (Reason: migraine headache) Rx Instructions: 10 mg orally PRN; trazodone 100 MG tablet 100 mg PO QHS methylphenidate HCl 27 MG tablet extended release 24hr 36 mg PO DAILY erenumab-aooe 140 MG/ML auto-injector 140 mg SQ QMONTH lansoprazole [Prevacid 24Hr] 15 mg capsule,delayed release(DR/EC) 20 mg PO DAILY Referrals / Follow Up: Kev Cheng MD [Primary Care Provider] - Within 1 Week Saul Bazan DO [Med Staff - Active Staff] - 11/19/24 (Call Dr. Bazan's office tomorrow as discussed to check in for preparation for surgery on 11/20/2024.) Disposition Disposition (needs filled in before D/C Order can be placed): Home, Self Care
--- NOTE | 2024-11-18 15:52 | PCM.DC.SUM ---
Providers Date of Admission: 11/17/24 Date of Discharge: 11/18/24 Primary Care Physician: Dr. Denise Cheng MD Reason For Visit: CHEST PAIN Diagnosis Discharge Diagnosis (1) Chest pain: Status: Acute Code(s): R07.9 - Chest pain, unspecified Medications at Discharge Home Medications methylphenidate HCl 27 mg tablet,extended release 24 hr 36 mg PO DAILY ADD 10/01/18 trazodone 100 mg tablet 100 mg PO QHS sleep 10/01/18 erenumab-aooe 140 mg/mL subcutaneous auto-injector 140 mg SQ QMONTH migraines 12/05/19 ascorbate calcium (vitamin C) 500 mg tablet 500 mg PO DAILY vitamin 09/28/21 vitamin with calcium no.72-iron 27 mg-folic acid 1 mg tablet ea PO DAILY 09/28/21 duloxetine 40 mg capsule,delayed release 40 mg PO DAILY mental health 10/06/21 magnesium oxide 500 mg capsule 1,000 mg PO DAILY supplement 10/06/21 vitamin B complex 1 tab PO DAILY vitamin 10/06/21 rizatriptan 10 mg tablet 10 mg PO .COMPLEX PRN migraine headache 01/27/23 lansoprazole 15 mg capsule,delayed release (Prevacid 24Hr) 20 mg PO DAILY reflux 11/17/24 lidocaine 1.8 % topical patch 1 patch topical DAILY #30 ea 11/18/24 Hospital Course Operations None Procedures Stress test Summary of Care Provided Minutes Spent on Discharge: 42 Hospital Course: Patient is a 59-year-old female with past medical history as outlined was admitted to the ED on 11/17/2024 with complaint of chest pain which started about 2 hours prior to admission. It was mainly under the left rib and radiated to the neck in her trapezius region. This started while she was in a car and she had never had this before. It worsen with activity and with deep inspiratory efforts. She therefore came into the ED to be evaluated. EKG showed no acute ST changes. Initial troponin was 76 and repeat was 69. CTA of the chest was negative for any evidence of PE and showed enlargement of distal pulmonary artery seen with possible pulmonary hypertension trace left pleural effusion. She was admitted to be managed for chest pain to rule out ACS. She had stress test done on 11/18/2024 which showed no evidence of ischemia. She also had 2D echo which showed normal ventricular systolic function and EF of 65% with hypermobile atrial septum and tricuspid aortic valve with possible small Lambl's excrescence. The pain also appeared to be musculoskeletal during examination. I did call patient's orthopedic surgeon Dr. Bazan to discuss her presentation with him as she was due for a meniscal repair according to patient on the Monday. Dr. Bazan per discussion did not see any need for further cardiac workup before having the surgery. She was therefore discharged home on 11/18/2024. She is follow-up with her primary care doctor within 1 to [address] Bazan's request was to call his office on 11/19/2024 to check in with him to see how she was feeling for them to confirm if she could have the knee arthroscopy done on 11/20/2024. Patient was seen and examined prior to discharge. She had no active complaints. Review of systems otherwise negative. Labs and vitals reviewed. Home medication reviewed and reconciled. Physical Exam Const alert, oriented x3 and no apparent distress General Appearance: cooperative, comfortable and well kempt Orientation / Consciousness: awake Exam Limitations: no limitations HEENT head/scalp atraumatic, hearing grossly normal bilaterally and moist oral mucous membranes Mouth: oral and palatal mucosa normal Eyes EOMs intact bilaterally and conjunctivae normal Neck no lymphadenopathy and supple Resp normal respiratory effort, no use of accessory muscles and clear to auscultation bilaterally Cardio regular rate, regular rhythm, S1 normal heart sound, S2 normal heart sound and no murmurs GI normal to inspection, nondistended, normoactive bowel sounds, soft to palpation, non-tender and non-distended Extremity normal to inspection, full ROM and no clubbing, cyanosis or edema Skin no rashes or lesions noted Neuro oriented x3, moves all extremities and no focal motor deficits Sensorium / Orientation: awake and alert Motor Exam: strength 5/5 throughout Psych affect normal Weight / BMI Weight Weight: 186 lb 8.177 oz Body Mass Index (BMI) 27.5 ABG / Lab / Microbiology Data 11/18/24 05:56 11/18/24 05:56 Laboratory: Laboratory Results - last 24 hr 11/17/24 16:45: WBC 7.4, RBC 4.38, Hgb 13.9, Hct 41.6, MCV 95.0, MCH 31.7, MCHC 33.4, RDW Std Deviation 44.7 H, RDW Coeff of Amged 12.9, Plt Count 308, MPV 9.3, Immature Gran % (Auto) 0.100, Neut % (Auto) 40.4 L, Lymph % (Auto) 46.6 H, Conway % (Auto) 10.2 H, Eos % (Auto) 2.0, Baso % (Auto) 0.7, Absolute Neuts (auto) 3.0, Absolute Lymphs (auto) 3.43, Nucleated RBC % 0, ESR 2, D-Dimer Quant (PE/DVT) 0.30, Sodium 142, Potassium 4.0, Chloride 104, Carbon Dioxide 26.2, Anion Gap 12, BUN 14, Creatinine 0.81, Estim Creat Clear Calc 78.15, Est GFR (MDRD) Non-Af 84, BUN/Creatinine Ratio 16.7, Glucose 130 H, Calcium 9.6, Total Bilirubin 0.58, Direct Bilirubin 0.20, AST 37 H, ALT 44 H, Alkaline Phosphatase 68, Troponin T High Sens 76 H*, Total Protein 7.5, Albumin 4.5, Globulin 3.0, Lipase 40 11/17/24 18:45: Troponin T Hi Sens 2 Hr 69 H* 11/17/24 21:20: Magnesium 2.0, Troponin T Hi Sens 4Hr 54 H*, C-React Prot Ext Range < 3.00 11/18/24 05:56: WBC 6.7, RBC 3.91 L, Hgb 12.3, Hct 37.1, MCV 94.9, MCH 31.5, MCHC 33.2, RDW Std Deviation 45.1 H, RDW Coeff of Maged 13.1, Plt Count 233, MPV 8.9, Immature Gran % (Auto) 0.100, Neut % (Auto) 40.8 L, Lymph % (Auto) 45.0 H, Conway % (Auto) 11.6 H, Eos % (Auto) 1.8, Baso % (Auto) 0.7, Absolute Neuts (auto) 2.7, Absolute Lymphs (auto) 3.02, Nucleated RBC % 0, Sodium 142, Potassium 3.9, Chloride 108, Carbon Dioxide 23.4, Anion Gap 10, BUN 13, Creatinine 0.68 L, Estim Creat Clear Calc 103.44, Est GFR (MDRD) Non-Af 100, BUN/Creatinine Ratio 19.5, Glucose 93, Calcium 9.0, Total Bilirubin 0.52, AST 27, ALT 34, Alkaline Phosphatase 53, Troponin T High Sens 79 H*, Total Protein 6.3, Albumin 3.6, Globulin 2.6, Albumin/Globulin Ratio 1.4, Triglycerides 249 H, Cholesterol 167, LDL Cholesterol, Calc 90, VLDL Cholesterol 50 H, HDL Cholesterol 27 L, Cholesterol/HDL Ratio 6.16 Radiography Diagnostic Testing: Radiology Impression Chest X-Ray 11/17/24 19:18 IMPRESSION: NO ACUTE FINDINGS. Reading Location: [facility] Chest CTA 11/17/24 20:36 IMPRESSION: 1. No acute pulmonary embolism. 2. Ectasia of the main pulmonary artery and enlargement of the distal pulmonary arteries, which can be seen with pulmonary hypertension. 3. Trace left pleural effusion. Reading Location: [facility] Echocardiogram 11/18/24 05:55 Interpretation Summary The LV systolic function is normal. EF is 65 %. Hypermobile atrial septum. Tricuspid aortic valve. Possible small Lambl's excrescence. Mild (1+) pulmonic valve insufficiency. Mildly dilated aortic root. Ordering Physician: Esther Gaspar Referring Physician: DENISE CHENG Performed By: Kanchan Olivia RDCS D/C Instructions Discharge Diet: Low fat / Low cholesterol Discharge Activity: Return to Normal Activity Weight Bearing Status: Weight bearing as tolerated Call your doctor if you observe: Fever of 101 or Higher, Shortness of breath, Dizziness, Swelling in the ankles, Chest pain and Increased palpitations (irregular heartbeat) DC O2, CPAP, BIPAP Needs Home O2 Discharge instructions: No DC home with Oxygen: No Meaningful Use Info Meaningful Use Meaningful Use Diagnoses (Choose all that apply): None applicable Ischemic Stroke Statin Dosing Therapy Reference: STATIN DOSE THERAPY REFERENCE: * Patients > 75 years receive moderate or high dose statin therapy. * Patients 75 years or YOUNGER should receive HIGH intensity statin dose unless contraindicated. You will be required to document reason for non-treatment if statin daily dose does not meet guidelines. HIGH DOSE STATIN THERAPY DAILY Atorvastatin > than or = to 40 mg Rosuvastatin > than or = to 20 mg Amlodipine + Atorvastatin > than or = to 2.5/40 mg Ezetimibe + Simvastatin 10/80 mg Simvastatin 80mg Discharge Plan Admission Admit Date/Time: 11/17/24 22:15 Primary Reason for Your Visit: chest pain Attending Provider: Barby Lousie Primary Care Provider: Denise Cheng Consulting Providers: Esther Gaspar Instructions Patient Instructions: ED Chest Pain, Noncardiac Discharge Orders/Prescriptions Prescriptions: New lidocaine 1.8 % adhesive patch,medicated 1 patch topical DAILY Qty: 30 0RF Rx Instructions: leave on most painful area for up to 12 hrs Continued ascorbate calcium (vitamin C) 500 mg tablet 500 mg PO DAILY PNV,calcium 04-ahrt-lrsdr acid 27 mg iron- 1 mg tablet PO DAILY Patient Comments: TAKE 1 TABLET BY MOUTH EVERY DAY DO NOT TAKE AT SAME TIME FERROUS GLUCONATE duloxetine 40 mg capsule,delayed release(DR/EC) 40 mg PO DAILY magnesium oxide 500 mg capsule 1,000 mg PO DAILY vitamin B complex Tablet 1 tab PO DAILY rizatriptan 10 mg tablet 10 mg PO .COMPLEX PRN (Reason: migraine headache) Rx Instructions: 10 mg orally PRN; trazodone 100 MG tablet 100 mg PO QHS methylphenidate HCl 27 MG tablet extended release 24hr 36 mg PO DAILY erenumab-aooe 140 MG/ML auto-injector 140 mg SQ QMONTH lansoprazole [Prevacid 24Hr] 15 mg capsule,delayed release(DR/EC) 20 mg PO DAILY Referrals / Follow Up: Denise Cheng MD [Primary Care Provider] - Within 1 Week Saul Bazan DO [Med Staff - Active Staff] - 11/19/24 (Call Dr. Bazan's office tomorrow as discussed to check in for preparation for surgery on 11/20/2024.) Disposition Disposition (needs filled in before D/C Order can be placed): Home, Self Care Charges/Coding Visit Charges Inpatient E&M: 79572 Disch Hosp >30min
--- NOTE | 2024-11-18 15:54 | CHAPLAIN ---
Type of Pastoral Visit _x__ Initial Visit ___ Follow-up Visit ___ On-call Visit ___ General Patient Visit ___ Spiritual Assessment ___ Family Conference ___ Bereavement ___ Rapid Response ___ Code Blue ___ Other (describe below) Pastoral Care Referral From _x__ Patient ___ Family ___ Nurse ___ Physician ___ Candy Dipper ___ Stretch Machine Operator ___ Other (describe below) Sacrament/Intervention _x__ Active listening ___ Anointing ___ Cheondoism ___ Bereavement ___ Communion ___ [place] exploration ___ ___ Life review ___ Prayer ___ Reconciliation ___ Sacrament of Sick ___ Supportive presence ___ Wedding ___ Other (describe below) Pastoral Comments patient and family members are in the room; pt states that she is feeling better today and that after getting her results later today that she is hoping to get discharged; pt denies having further worries or concerns
[2024-11-18 15:56] VITALS: BP 111/76; PULSE 75; RESP 18; TEMP 36.7; O2SAT 95
== END 2024-11-18 15:50 | disposition home or self-care (01) ==
LOC: ED 22:24 → PCU 23:20
PROVIDERS: Admitting Provider Family Medicine; Emergency Provider Emergency Medicine; PCP Family Medicine; Visit Provider Student in an Organized Health Care Education/Training Program
DX: R07.89 Other chest pain (principal); R79.89 Other specified abnormal findings of blood chemistry; Z79.899 Other long term (current) drug therapy; M19.90 Unspecified osteoarthritis, unspecified site; F41.9 Anxiety disorder, unspecified; F32.A Depression, unspecified; G43.709 Chronic migraine without aura, not intractable, without status migrainosus; F90.9 Attention-deficit hyperactivity disorder, unspecified type; R73.9 Hyperglycemia, unspecified
CPT/HCPCS: 36415; 71046; 71275; 78452; 80048; 80053; 80061; 80076; 83690; 83735; 84484; 85025; 85379; 85652; 86140; 93005; 93017; 93306; 96361; 96372; 96374; 96375; 99221; 99285; A9500; Q9967; A4216; G0378

== ENCOUNTER → 2024-12-02 | Outpatient (CLI) | payer BC, SELFPAY ==
--- NOTE | 2024-12-02 07:20 | US_ITS ---
PROCEDURE: ABDOMEN COMPLETE 12/02/2024 REASON FOR EXAM: ABDOMINAL TENDERNESS TECHNIQUE: ABDOMEN COMPLETE COMPARISON: Prior sonogram dated January 12, 2023. FINDINGS: Liver: Diffusely echogenic suggesting fatty infiltration. Gallbladder: No stones sludge wall thickening or tenderness. Common bile duct: Normal measuring 3 mm . Pancreas: Normal Kidneys: The right kidney measures 11.3 cm 6 cm 5.7 cm. The left kidney measures 11.6 cm x 5.2 cm 4.8 cm. Renal parenchymal thicknesses and echotextures are preserved. No hydronephrosis. Spleen: Splenomegaly. The spleen measures 14.7 cm 6.1 cm 6.1 cm.. Aorta: Unremarkable IVC: Unremarkable Peritoneal Findings: No ascites identified. US/Abdomen Complete IMPRESSION: Splenomegaly. Fatty infiltration of the liver. Reading Location: [id number]
--- OUTSIDE RECORDS SUMMARY | 2024-12-02 07:23 | XMS RPT_ITS | CCD ---
Author Organization [facility] Care Team Providers Care Remote Inpatient Coder Name Role Phone CARMEN, LAMAR P. Unavailable [...] Provider Dr. Cecilio Lopez Attending Provider JARED STEWART Attending Unavailable DENISE CHENG Primary Care Unavailable JARED STEWART Referring Unavailable DENISE CHENG Primary Care Unavailable Denise Cheng MD Primary Care Provider Dr. Denise Cheng Primary Care Provider [phone] Dr. Denise Cheng Referring Provider [phone] Iqra OMALLEY, SAHHRAM Bhardwaj Attending Provider Dr. Denise Cheng MD Primary Care Provider Dr. Denise Cheng MD Referring Provider Tasha ZACARIAS-CAdilson Attending Provider Denis ZACARIAS-CFarida Attending Provider Dr. Denise Cheng MD Attending Provider Hortensia PEARSON, Dr. Hughes Attending Provider [phone] Hortensia PEARSON, Dr. Hughes Referring Provider Jaquelin COHEN, Dr. Mondragon Attending Provider [phone] Elvira PEARSON, Dr. Fisher Emergency Provider Hubert COHEN, Dr. Esther Srivastava Admit Provider Hubert COHEN, Dr. Esther Srivastava Attending Provider Elvira PEARSON, Dr. Fisher Emergency Provider Hubert COHEN, Dr. Esther Srivastava Admit Provider [phone] Hubert COHEN, Dr. Esther Srivastava Other Provider [phone] Aspen COHEN, Dr. Barby William Attending Provider Aspen COHEN, Dr. Barby William Other Provider [phone] Chiki COHEN, Dr. Jensen Attending Provider Cheng, Denise Referring Unavailable Cheng, Denise Attending Unavailable Cheng, Denise Primary Care Unavailable White, Esther L Consulting Unavailable White, Esther L Admitting Unavailable Koram, Barby Nataliia Attending Unavailable Cheng, Denise Primary Care Unavailable Cheng, Denise Referring Unavailable Cheng, Denise Attending Unavailable Chegn, Denise Primary Care Unavailable Cheng, Denise Primary Care Unavailable Cheng, Denise Attending Unavailable Cheng, Denise Referring Unavailable Saul Bazan Referring Unavailable Cheng, Denise Primary Care Unavailable Giancarlo Hammer Attending Unavailable White, Esther L Attending Unavailable White, Esther L Consulting Unavailable White, Esther L Admitting Unavailable Cheng, Denise Primary Care Unavailable Camila Monet Attending Unavailable White, Esther L Admitting Unavailable White, Esther L Consulting Unavailable Cheng, Denise Primary Care Unavailable Koram, Barby Nataliia Consulting Unavailable Koram, Barby Nataliia Attending Unavailable Cheng, Denise Primary Care Unavailable Ashutosh Yang Attending Unavailable Cheng, Denise Referring Unavailable Roof Adilson ZACARIAS Attending Unavailable Cheng, Denise Primary Care Unavailable Cheng, Denise Referring Unavailable Cheng, Denise Referring Unavailable Cheng, Denise Primary Care Unavailable Farida Barrios Attending Unavailable Roof TAXIMETER REPAIRER, Adilson H Attending Unavailable Cheng, Denise Primary Care Unavailable Denise Cheng Referring Unavailable Denise Cheng Primary Care Unavailable Denise Cheng Attending Unavailable Saul Bazan Referring Unavailable Saul Bazan Attending Unavailable Denise Cheng Primary Care Unavailable Allergies Allergy Classification Reported Allergen(s) Allergy Type Date of Onset Reaction(s) Facility (16 sources) Amoxicillin; Translations: [AMOXICILLIN] Drug Allergy 6 [facility] (17 sources) Sulfonamides (Antibiotic); Translations: [SULFA (SULFONAMIDE ANTIBIOTICS)] Allergy to substance 6 [facility] (14 sources) Verapamil Drug Allergy 2 lightheaded dizzy [facility] (14 sources) ZOLMitriptan Drug Allergy 2 ; [facility] (1 source) Amoxicillin Drug Allergy 5 [facility] (1 source) Verapamil Drug Allergy 5 [facility] (1 source) ZOLMitriptan Drug Allergy 5 [facility] Medications Current Medications Medication Drug Class(es) Dates Sig (Normalized) Sig (Original) calcium ascorbate 500 mg oral tablet (14 sources) Start: 09-28-2021 take 1 tablet by [...] 2:02pm 1 ml erenumab-aooe 140 mg/ml auto-injector (14 sources) Start: 12-05-2019 inject 140 mg by subcutaneous injection every month Erenumab-Aooe 140 MG/ML auto-injector Active 140 mg SQ EVERY MONTH December 05, 2019 12:00am Start: 12-05-2019 inject 140 mg by sub cutaneous injection every month Erenumab-Aooe Active 140 MG SQ EVERY MONTH December 05, 2019 12:00am lansoprazole 15 mg delayed release oral capsule (2 sources) Proton Pump Inhibitor Start: 11-17-2024 Lansoprazole (Prevacid 24hr) 15 mg capsule,delayed release(DR/EC) Active 20 mg PO DAILY November 17, 2024 12:00am lidocaine 0.018 mg/mg medicated patch (1 source) Antiarrhythmic, Amide Local Anesthetic Start: 11-18-2024 Lidocaine 1.8 % adhesive patch,medicated Active 1 NMA TOPICAL DAILY November 18, 2024 12:00am leave on most painful area for up to 12 hrs magnesium oxide 500 mg oral capsule (15 sources) Start: 10-06-2021 take 2 capsules by mouth once daily Magnesium Oxide 500 mg capsule Active 1000 mg PO DAILY October 06, 2021 12:00am Start: 10-06-2021 take 1000 mg by mouth once you ly Magnesium Oxide Active 1000 MG PO DAILY October 06, 2021 12:00am take 1 capsule by [facility] twice daily magnesium oxide 400 mg cap Take 1 capsule by mouth twice daily. 0 Active Comment on above: Take 1 capsule by [facility] twice daily. 24 hr methylphenidate hydrochloride 27 mg extended release oral tablet (14 sources) Central Nervous System Stimulant Start: 10-01-2018 Methylphenidate Hcl 27 MG tablet extended release 24hr Active 36 mg PO DAILY October 01, 2018 12:00am Start: 10-01-2018 take 1 tablet by [facility] once daily Methylphenidate Hcl 27 MG tablet extended release 24hr Active 27 mg PO DAILY October 01, 2018 12:00am Pnv,Calcium 21-Owag-Xvtzb Ac id ( Vitamin Plus Low Iron) [...] EACH PO September 28, 2021 12:00am Pnv,Calcium 29-Nvpw-Msfnx Acid 27 mg iron- 1 mg tablet (2 sources) Start: 09-28-2021 Pnv,Calcium 65-Shor-Twdzy Acid 27 mg iron- 1 mg tablet Active NMA PO DAILY September 28, 2021 12:00am rizatriptan 10 mg oral tablet (8 sources) Serotonin-1b and Serotonin-1d Receptor Agonist Start: [...] 06, 2021 12:00am Vitamin B Complex tablet (5 sources) Start: 10-06-2021 Vitamin B Comp herlinda [...] tablets daily azithromycin 250 mg oral tablet (13 sources) Macrolide Antimicrobial Start: 04-03-2023 End: 08-10-2024 [...] as needed. benzonatate 200 mg oral capsule (13 sources) Non-narcotic Antitussive Start: 04-03-2023 End: 08-10-2024 take 1 capsule by mouth three times daily as needed for cough Benzonatate 200 mg capsule Discontinued 200 mg PO THREE TIMES A DAY as needed for cough April 15, 2024 1:00am August 10, 2024 10:38am cholecalciferol 0.025 mg oral capsule (14 sources) Vitamin D Start: 09-28-2021 End: 10-06-2021 [...] at HS famotidine 40 mg oral tablet (15 sources) Histamine-2 Receptor Antagonist Start: 06-01-2017 End: [...] daily. hydrOXYzine hydrochloride 25 mg oral tablet (14 sources) Antihistamine Start: 09-28-2021 End: 10-06-2021 Hydroxyzine [...] Take by mouth as nee ded. Magnesium (14 sources) Start: 019 End: 022 take 500 mg by mouth once daily [...] / nitrofurantoin, monohydrate 75 mg oral capsule (5 sources) Nitrofuran Antibacterial Start: 07-28-2024 End: 08-04-2024 [...] controlled phenazopyridine hydrochloride 100 mg oral tablet (6 sources) Start: 07-28-2024 End: 08-10-2024 take 1 [...] once daily. SUMAtriptan 100 mg oral tablet (15 sources) Serotonin-1b and Serotonin-1d Receptor Agonist Start: [...] Date Documented Da te Episodic/Chronic Abdominal pain (15 sources) Abdominal pain; Translations: [Unspecified abdominal pain] Onset: 11-19-2024 10-12-2021 Episodic Immunizations and screening for infectious disease (10 sources) Contact with or exposure to other viral diseases; Translations: [Other specified abnormal immunological findings in serum] Onset: 11-06-2024 04-03-2023 Episodic Joint disorders and dislocations; trauma-related (14 sources) Subluxation complex of cervical vertebra; Translations: [Subluxation complex (vertebral) of cervical region] 10-18-2018 Episodic Nonspecific chest pain (8 sources) Chest pain; Translations: [Chest pain, unspecified] Onset: 11-19-2024 11-17-2024 Episodic Other bone disease and musculoskeletal deformities (20 sources) Segmental and somatic dysfunction; Translations: [Segmental and somatic dysfunction of cervical region] 10-22-2018 Episodic Other connective tissue disease (1 source) Plantar fascial fibromatosis; Translations: [Plantar fascial fibromatosis] Onset: 02-01-2023 Episodic Other connective tissue disease (1 source) Plantar fascial fibromatosis; Translations: [Plantar fascial fibromatosis] 02-01-2023 Episodic Other gastrointestinal disorders (14 sources) Splenomegaly; Translations: [Splenomegaly, not elsewhere classified] 10-06-2021 Episodic Other gastrointestinal disorders (3 sources) Splenomegaly, not elsewhere classified; Translations: [Splenomegaly] Episodic Other screening for suspected conditions (not mental disorders or infectious disease) (3 sources) Raised cardiac enzyme or marker; Translations: [Other specified abnormal findings of blood chemistry] Onset: 09-09-2024 11-17-2024 Episodic Other skin disorders (14 sources) Easy bruising; Translations: [Other skin changes] 10-06-2021 Episodic Other skin disorders (2 sources) Other skin changes; Translations: [Other symptoms involving skin and integumentary tissues] Episodic Spondylosis; intervertebral disc disorders; other back problems (20 sources) Degeneration of lumbar intervertebral disc; Translations: [Other intervertebral disc degeneration, lumbar region] 08-10-2020 Chronic Spondylosis; intervertebral disc disorders; other back problems (14 sources) Backache; Translations: [Dorsalgia, unspecified] 02-24-2020 Episodic Unclassified (1 source) Call Dr. Bazan's office tomorrow as discussed to check in for preparation for surgery on 11/20/2024. Past or Other Problems Problem Classification Problem Date Documented Da te Episodic/Chronic Genitourinary symptoms and ill-defined conditions (6 sources) Dysuria; Translations: [Dysuria] Onset: 08-12-2024 07-28-2024 Episodic Other nutritional; endocrine; and metabolic disorders (1 source) Abnormal weight gain; Translations: [Abnormal weight gain] Onset: 02-15-2024 Episodic Other upper respiratory infections (20 sources) Acute sinusitis; Translations: [Acute sinusitis, unspecified] Onset: 08-10-2024 04-03-2023 Episodic Urinary tract infections (6 sources) Urinary tract infectious disease; Translations: [Urinary tract infection, site not specified] Onset: 07-28-2024 07-28-2024 Episodic Results Test Name Value Interpretation Reference Range Facility Absolute lymphocyte countOrd ered By: Esther Gaspar on 11-18-2024 Lymphocytes Auto (Unsp spec) [#/Vol] 3.02 10*3/uL 0.83-4.51 [facility] Absolute neutrophil countOrd ered By: [facility] Hubert on 11-18-2024 Neutrophils (Bld) [#/Vol] 2.7 10*3/uL 2.0-7.7 [facility] Anion gap in Serum or Plasma Ordered By: [facility] Hubert on 11-18-2024 Anion gap [Moles/Vol] 10 mmol/L 5-15 [facility] Automated lymphocyte count a s percentage of total leukocytesOrdered By: [facility] Hubert on 11-18-2024 Lymphocytes/100 WBC Auto (Unsp spec) 45.0 % High 19-41 [facility] BUN/creatinine ratioOrdered By: [facility] Hubert on 11-18-2024 Urea nitrogen/Creatinine [Mass ratio] 19.5 mg/mg 10-20 [facility] Basophil percentageOrdered B y: [facility] Hubert on 11-18-2024 Basophils/100 WBC (Bld) 0.7 % 0-1 [facility] Bilirubin, totalOrdered By: [facility] Hubert on 11-18-2024 Bilirubin [Mass/Vol] 0.52 mg/dL 0.00-1.30 [facility] CBC W/Diff, Automatedon Absolute Lymph 3.02 X10 3/uL Normal 0.83-4.51 [facility] Comment on above: Performed By: #### L 500.4050, L500.4100, L100.0100 #### [facility] [address] [place], [place], [id number] Absolute Neut 2.7 X10 3/uL Normal 2.0-7.7 [facility] Comment on above: Performed By: #### L 500.4050, L500.4100, L100.0100 #### [facility] [address] [place], [address] Basophils/100 WBC (Bld) 0.7 % Normal 0-[address] [facility] Comment on above: Performed By: #### L 500.4050, L500.4100, L100.0100 #### [facility] [address] [place], [address] Eosinophils/100 WBC (Bld) 1.8 % Normal 0-5 [facility] Comment on above: Performed By: #### L 500.4050, L500.4100, L100.0100 #### [facility] [address] [place], [address] Erythrocyte distribution width (RBC) [Ratio] 13.1 % Normal 11.6-14.6 [facility] Comment on above: Performed By: #### L 500.4050, L500.4100, L100.0100 #### [facility] [address] [place], [address] Hematocrit (Bld) [Volume fraction] 37.1 % Normal 37-47 [facility] Comment on above: Performed By: #### L 500.4050, L500.4100, L100.0100 #### [facility] [address] [place], [address] Hemoglobin (Bld) [Mass/Vol] 12.3 g/dL Normal 12.0-15.0 [facility] Comment on above: Performed By: #### L 500.4050, L500.4100, L100.0100 #### [facility] [address] [place], [address] IG% 0.100 Normal 0.0-0.9 [facility] Comment on above: Result Comment: IG% - Immature Granulocytes (promyelocytes, myelocytes and metamyelocytes) > 1% indicates that a LEFT SHIFT is Present. Performed By: #### L 500.4050, L500.4100, L100.0100 #### [facility] [address] [place], [address] Lymphocytes/100 WBC (Bld) 45.0 % High 19-41 [facility] Comment on above: Performed By: #### L 500.4050, L500.4100, L100.0100 #### [facility] [address] [place], [address] MCH (RBC) [Entitic mass] 31.5 pg Normal 27.0-32.0 [facility] Comment on above: Performed By: #### L 500.4050, L500.4100, L100.0100 #### [facility] [address] [place], [address] MCHC (RBC) [Mass/Vol] 33.2 g/dL Normal 32-36 [facility] Comment on above: Performed By: #### L 500.4050, L500.4100, L100.0100 #### [facility] [address] [place], [address] MCV (RBC) [Entitic vol] 94.9 fL Normal 81-99 [facility] Comment on above: Performed By: #### L 500.4050, L500.4100, L100.0100 #### [facility] [address] [place], [address] Monocytes/100 WBC (Bld) 11.6 % High 0-[address] [facility] Comment on above: Performed By: #### L 500.4050, L500.4100, L100.0100 #### [facility] [address] [place], [address] Neutrophils/100 WBC (Bld) 40.8 % Low 47-70 [facility] Comment on above: Performed By: #### L 500.4050, L500.4100, L100.0100 #### [facility] [address] [place], [address] Nucleated RBC (Bld) [#/Vol] 0 10*3/uL Normal 0-5 [facility] Comment on above: Performed By: #### L 500.4050, L500.4100, L100.0100 #### [facility] [address] [place], [address] Platelet mean volume (Bld) [Entitic vol] 8.9 fL Normal 6.2-12.0 [facility] Comment on above: Performed By: #### L 500.4050, L500.4100, L100.0100 #### [facility] [address] [place], [address] Platelets (Bld) [#/Vol] 233 10*3/uL Normal 150-450 [facility] Comment on above: Performed By: #### L 500.4050, L500.4100, L100.0100 #### [facility] [address] [place], [address] RBC (Bld) [#/Vol] 3.91 10*6/uL Low 4.2-5.4 [facility] Comment on above: Performed By: #### L 500.4050, L500.4100, L100.0100 #### [facility] [address] [place], [address] RDW SD 45.1 fl High 35.1-43.9 [facility] Comment on above: Performed By: #### L 500.4050, L500.4100, L100.0100 #### [facility] [address] [place], [address] WBC (Bld) [#/Vol] 6.7 10*3/uL Normal 4.4-11.0 [facility] Comment on above: Performed By: #### L 500.4050, L500.4100, L100.0100 #### [facility] [address] [place], [address] Calculated very low density lipoprotein (VLDL) cholesterol measurementOrdered By: Esther Gaspar on 11-18-2024 Calculated very low density lipoprotein (VLDL) cholesterol measurement 50 mg/dL High 5-40 [facility] Carbon dioxide, total [Moles /volume] in Central venous bloodOrdered By: Esther Gaspar on 11-18-2024 CO2 [Moles/Vol] 23.4 mmol/L 21.0-32.0 [facility] Cardiovascular stress test r eportOrdered By: Camila Monet on 11-18-2024 Study report [facility] [address] [place] [address] MR#: [id number] Acct: [id number] Name: YUMIKO GROSSMAN Rep #: [id number] : 1965 59 From: Camila Monet MD Primary Care: Dr. Denise Cheng MD Status: ADM VALORIE Referring Dr: Sex: F C Stress Test Report Date: 11/18/2024 Procedure: Pharmacologic stress nuclear imaging study Indications: Chest pain Consent: Per the patient Procedure: The patient underwent pharmacologic (Regadenoson 0.4mg ) evaluation with a peak heart rate of 96 beats per minute (59%predicted maximal heart rate) and a peak blood pressure of 116/68 mmHg. The baseline ECG demonstrated sinus rhythm. The peak pharmacologic ECG did not show any ischemic changes. There were no cardiac dysrhythmias pretest, during pharmacologic infusion, or recovery. Patient had sharp chest discomfort prior to the test which continued without anychange during infusion and in recovery. The patient was injected with 11.8 millicuries of technetium 99m Cardiolite and subsequently rest SPECT Cardiolite nuclear imaging was obtained in the horizontal long, vertical long, and short axis views. The patient underwent pharmacologic (Regadenoson) evaluation. The patient was injected with 34.5 millicuries of technetium 99m Cardiolite and subsequently stress SPECT Cardiolite nuclear imaging was obtained in the horizontal long, vertical long, and short axis views. A gated Cardiolite study at peak stress was obtained. The examination was stopped secondary to completion of protocol. Rest and stress SPECT Cardiolite nuclear imaging status post realignment, normalization, and attenuation correction demonstrate no fixed or reversible perfusion defects. There is end systolic thickening and brightening. The gatedCardiolite study demonstrates myocardial thickening and inward wall motion. Thereported LVEF is 80%. Impression: 1. Pharmacologic (Regadenoson) evaluation 2. Peak pharmacologic ECG with no ischemic changes. 3. There were no cardiac dysrhythmias pretest, during pharmacologic infusion, or recovery. 5. Rest and stress SPECT Cardiolite nuclear imaging demonstrate relative uniform tracer uptake and myocardial perfusion appearing within normal limits. 6. The gated Cardiolite study reports an LVEF of 80%. This note was generated with [employer] software. It may contain incorrectwords, spelling, and punctuation that were not noted in checking the note beforesigning. 11/18/24 1048 Date _ Camila Monet MD CC: Dr. Esther Gaspar MD; Dr. Natalia Felix DO; Dr. Denise Cheng MD; Dr. Rachele Louise MD ~ Date Dictated: 11/18/241045 Date Transcribed: 11/18/241045 [employer]: [employer] [facility] Work Phone: Chloride assayOrdered By: Julieta Gaspar on 11-18-2024 Chloride [Moles/Vol] 108 mmol/L 98-108 [facility] Comprehensive Metabolic Prof ilon 11-18-2024 Albumin [Mass/Vol] 3.6 g/dL Normal 3.5-5.0 [facility] Comment on above: Performed By: #### L 500.4050, L500.4100, L100.0100 #### [facility] [address] [place], [address] Albumin/Globulin [Mass ratio] 1.4 {ratio} Normal 0.9-2.4 [facility] Comment on above: Performed By: #### L 500.4050, L500.4100, L100.0100 #### [facility] [address] [place], [address] ALK PHOS 53 U/L Normal 35-104 [facility] Comment on above: Performed By: #### L 500.4050, L500.4100, L100.0100 #### [facility] [address] [place], [address] ALT [Catalytic activity/Vol] 34 U/L Normal <=34 [facility] Comment on above: Performed By: #### L 500.4050, L500.4100, L100.0100 #### [facility] [address] [place], [address] AST [Catalytic activity/Vol] 27 U/L Normal <=31 [facility] Comment on above: Performed By: #### L 500.4050, L500.4100, L100.0100 #### [facility] [address] [place], [address] Bilirubin [Mass/Vol] 0.52 mg/dL Normal 0.00-1.30 [facility] Comment on above: Performed By: #### L 500.4050, L500.4100, L100.0100 #### [facility] [address] [place], [address] BUN/CRE 19.5 RATIO Normal 10-20 [facility] Comment on above: Performed By: #### L 500.4050, L500.4100, L100.0100 #### [facility] [address] [place], [address] Calcium [Mass/Vol] 9.0 mg/dL Normal 7.6-11.0 [facility] Comment on above: Performed By: #### L 500.4050, L500.4100, L100.0100 #### [facility] [address] [place], [address] Chloride [Moles/Vol] 108 mmol/L Normal 98-108 [facility] Comment on above: Performed By: #### L 500.4050, L500.4100, L100.0100 #### [facility] [address] [place], [address] CO2 [Moles/Vol] 23.4 mmol/L Normal 21.0-32.0 [facility] Comment on above: Performed By: #### L 500.4050, L500.4100, L100.0100 #### [facility] [address] [place], [address] Creatinine [Mass/Vol] 0.68 mg/dL Low 0.70-1.20 [facility] Comment on above: Performed By: #### L 500.4050, L500.4100, L100.0100 #### [facility] [address] [place], [address] ECRCL 103.44 ml/min Normal 50-250 [facility] Comment on above: Performed By: #### L 500.4050, L500.4100, L100.0100 #### [facility] [address] [place], [address] GAP 10 Normal 5-15 [facility] Comment on above: Performed By: #### L 500.4050, L500.4100, L100.0100 #### [facility] [address] [place], [address] GFR/1.73 sq M.predicted among non-blacks MDRD (S/P/Bld) [Vol rate/Area] 100 mL/min/{1.73_m2} Normal >60 [facility] Comment on above: Result Comment: mL/m in/1.73m2 CKD-EPI Creatinine Equation (2020) Performed By: #### L 500.4050, L500.4100, L100.0100 #### [facility] [address] [place], [address] Globulin (S) [Mass/Vol] 2.6 g/dL Normal 2.2-4.2 [facility] Comment on above: Performed By: #### L 500.4050, L500.4100, L100.0100 #### [facility] [address] [place], [address] Glucose [Mass/Vol] 93 mg/dL Normal 70-99 [facility] Comment on above: Performed By: #### L 500.4050, L500.4100, L100.0100 #### [facility] [address] [place], [address] Potassium [Moles/Vol] 3.9 mmol/L Normal 3.3-5.1 [facility] Comment on above: Performed By: #### L 500.4050, L500.4100, L100.0100 #### [facility] [address] [place], [address] Sodium [Moles/Vol] 142 mmol/L Normal 133-145 [facility] Comment on above: Performed By: #### L 500.4050, L500.4100, L100.0100 #### [facility] [address] [place], [address] T PROT 6.3 g/dL Normal 5.9-8.4 [facility] Comment on above: Performed By: #### L 500.4050, L500.4100, L100.0100 #### [facility] [address] [place], [address] Urea nitrogen [Mass/Vol] 13 mg/dL Normal 4-19 [facility] Comment on above: Performed By: #### L 500.4050, L500.4100, L100.0100 #### [facility] [address] [place], [address] Discharge Instructionon 06-0 Discharge Instruction [facility] Medical Records Department [address] [place] [address] Instructions for Home/Discharge Instructions 11/18/24 1550 MR#: [id number] Acct: [id number] Name: YUMIKO GROSSMAN Rep #: [id number] : 1965 59 From: Barby Louise MD PCP: Dr. Denise Cheng MD Status:ADM VALORIE Discharge Instructions Diet Discharge Diet: Low fat / Low cholesterol DC O2, CPAP, BIPAP needs Home O2 Discharge instructions: No Dressing / Incision Discharge Activity: Return to Normal Activity Weight Bearing Status: Weight bearing as tolerated Dressing / Incision Call your doctor if you observe: Fever of 101 or Higher, Shortness of breath, Dizziness, Swelling in the ankles, Chest pain and Increased palpitations (irregular heartbeat) Follow Up Care Test Results: Test results from this visit will be discussed in further detail at your follow-up appointment, if applicable. Discharge Plan Admission Admit Date/Time: 11/17/24 22:15 Primary Reason for Your Visit: chest pain Attending Provider: Barby Louise Primary Care Provider: Denise Cheng Consulting Providers: Esther Gaspar Instructions Patient Instructions: ED Chest Pain, Noncardiac Discharge Orders/Prescriptions Prescriptions: New lidocaine 1.8 % adhesive patch,medicated 1 patch topical DAILY Qty: 30 0RF Rx Instructions: leave on most painful area for up to 12 hrs Continued ascorbate calcium (vitamin C) 500 mg tablet 500 mg PO DAILY PNV,calcium 23-sism-mnsni acid 27 mg iron- 1 mg tablet PO DAILY Patient Comments: TAKE 1 TABLET BY MOUTH EVERY DAY DO NOT TAKE AT SAME TIME FERROUS GLUCONATE duloxetine 40 mg capsule,delayed release(DR/EC) 40 mg PO DAILY magnesium oxide 500 mg capsule 1,000 mg PO DAILY vitamin B complex Tablet 1 tab PO DAILY rizatriptan 10 mg tablet 10 mg PO .COMPLEX PRN (Reason: migraine headache) Rx Instructions: 10 mg orally PRN; trazodone 100 MG tablet 100 mg PO QHS methylphenidate HCl 27 MG tablet extended release 24hr 36 mg PO DAILY erenumab-aooe 140 MG/ML auto-injector 140 mg SQ QMONTH lansoprazole [Prevacid 24Hr] 15 mg capsule,delayed release(DR/EC) 20 mg PO DAILY Referrals / Follow Up: Denise Cheng MD [Primary Care Provider] - Within 1 Week Saul Bazan DO [Med Staff - Active Staff] - 11/19/24 (Call Dr. Bazan's office tomorrow as discussed to check in for preparation for surgery on 11/20/2024.) Disposition Disposition (needs filled in before D/C Order can be placed): Home, Self Care 11/18/24 1551 Barby Louise MD CC: Dr. Esther Gaspar MD; Dr. Denise Cheng MD Signed Normal [facility] Echo Completeon 11-18-2024 Echo [facility] Cardiovascular Services [address] [place] [address] Echo Complete 11/18/24 0934 MR#: [id number] Acct: [id number] Name: YUMIKO GROSSMAN Rep #: [id number] : 1965 59 From: Camila Monet MD Attending Dr: Dr. Barby Louise MD Status: AD M VALORIE Ordering Dr: Esther Gaspar MD Date: 11/18/24 Location: U Sex: F C Admitted: 11/17/24 Reason For Study Reason For Study: CHEST PAIN Procedure This was a 2D Doppler, Color Flow transthoracic echocardiogram. Exam performed in department. Left Ventricle Normal size and thickness. The LV systolic function is normal. EF is 65 %. Normal diastology for age. Right Ventricle Normal right ventricle. Atria The left and right atria are normal. Hypermobile atrial septum. Mitral Valve Trivial mitral valve insufficiency. Tricuspid Valve Trivial tricuspid valve insufficiency. Normal pulmonary artery pressure. Aortic Valve There is no aortic stenosis. Tricuspid aortic valve. Possible small Lambl's excrescence. No aortic valve insufficiency. Pulmonic Valve Mild (1+) pulmonic valve insufficiency. Great Vessels Mildly dilated aortic root. Pericardium/Pleural No pericardial effusion. MMode/2D Measurements Calculations LVIDd: 4.3 cm IVSd: 1.0 cm Ao root diam: 3.6 cm LVIDs: 3.2 cm LVPWd: 1.0 cm RVDd: 3.3 cm FS: 26.0 % LAV(MOD-bp): 30.9 ml LVAd ap4: 27.3 cm2 SV(MOD-sp4): 52.0 ml LAV(MOD-bp) Indexed: 15.4 ml/m2 LVLd ap4: 7.9 cm SI(MOD-sp4): 26.0 ml/m2 LAV(MOD-sp2): 30.8 ml EDV(MOD-sp4): 78.2 ml LAV(MOD-sp4): 30.7 ml EDV(sp4-el): 80.1 ml LVAs ap4: 13.7 cm2 LVLs ap4: 6.1 cm ESV(MOD-sp4): 26.2 ml ESV(sp4-el): 26.1 ml EF(MOD-sp4): 66.5 % EF(sp4-el): 67.5 % SV(sp4-el): 54.0 ml LA A4 area: 14.0 cm2 LA dimension(2D): 3.5 cm RA A4 area: 11.9 cm2 TAPSE: 2.2 cm Time Measurements MV dec time: 0.21 sec Doppler Measurements Calculations MV E max morales: 65.7 cm/sec Lat Peak E' Morales: 15.8 cm/sec Med Peak E' Morales: 9.4 cm/sec MV A max morales: 75.2 cm/sec E/E' lat: 4.2 E/E' med: 7.0 MV E/A: 0.87 Ao V2 max: 140.0 cm/sec LV V1 max: 121.7 cm/sec PA V2 max: 80.2 cm/sec Ao max P.8 mmHg LV V1 max P.9 mmHg TR max morales: 263.1 cm/sec TR max P.7 mmHg ECHO/Echo Complete Interpretation Summary The LV systolic function is normal. EF is 65 %. Hypermobile atrial septum. Tricuspid aortic valve. Possible small Lambl's excrescence. Mild (1+) pulmonic valve insufficiency. Mildly dilated aortic root. Ordering Physician: Esther Gaspar Referring Physician: DENISE CHENG Performed By: Kanchan Olivia RDCS 11/18/24 1317 Date Camila Monet MD CC: Dr. Esther Gaspar MD; Dr. Denise Cheng MD; Dr. Barby Louise MD Date Dictated: 11/18/24933 Date Transcribed: 11/18/241316 [employer]: Signed Normal [facility] Echocardiogram study reportO rdered By: Camila Monet on 11-18-2024 Study report [facility] [address] [facility] [place] [address] Echo Complete 11/18/24933 MR#: [id number] Acct: [id number] Name: YUMIKO GROSSMAN Rep #:[id number] : 1965 59 From: Camila Monet MD Attending Dr: Dr. Barby Louise MD Status: ADM VALORIE Ordering Dr: Esther Gaspar MD Date: 11/18/24 Location: [facility] Sex: F C Admitted: 11/17/24 Reason For Study Reason For Study: CHEST PAIN Procedure This was a 2D Doppler, Color Flow transthoracic echocardiogram. Exam performed in department. Left Ventricle Normal size and thickness. The LV systolic function is normal. EF is 65 %. Normal diastology for age. Right Ventricle Normal right ventricle. Atria The left and right atria are normal. Hypermobile atrial septum. Mitral Valve Trivial mitral valve insufficiency. Tricuspid Valve Trivial tricuspid valve insufficiency. Normal pulmonary artery pressure. Aortic Valve There is no aortic stenosis. Tricuspid aortic valve. Possible small Lambl's excrescence. No aortic valve insufficiency. Pulmonic Valve Mild (1+) pulmonic valve insufficiency. Great Vessels Mildly dilated aortic root. Pericardium/Pleural No pericardial effusion. MMode/2D Measurements & Calculations LVIDd: 4.3 cm IVSd: 1.0 cm Ao root diam: 3.6 cm LVIDs: 3.2 cm LVPWd: 1.0 cm RVDd: 3.3 cm FS: 26.0 % __ LAV(MOD-bp): 30.9 ml LVAd ap4: 27.3 cm2 SV(MOD-sp4): 52.0 ml LAV(MOD-bp) Indexed: 15.4 ml/m2 LVLd ap4: 7.9 cm SI(MOD-sp4): 26.0 ml/m2 LAV(MOD-sp2): 30.8 ml EDV(MOD-sp4): 78.2 ml LAV(MOD-sp4): 30.7 ml EDV(sp4-el): 80.1 ml LVAs ap4: 13.7 cm2 LVLs ap4: 6.1 cm ESV(MOD-sp4): 26.2 ml ESV(sp4-el): 26.1 ml EF(MOD-sp4): 66.5 % EF(sp4-el): 67.5 % __ SV(sp4-el): 54.0 ml LA A4 area: 14.0 cm2 LA dimension(2D): 3.5 cm __ RA A4 area: 11.9 cm2 TAPSE: 2.2 cm Time Measurements MV dec time: 0.21 sec Doppler Measurements & Calculations MV E max morales: 65.7 cm/sec Lat Peak E' Morales: 15.8 cm/sec Med Peak E' Morales: 9.4 cm/sec MV A max morales: 75.2 cm/sec E/E' lat: 4.2 E/E' med: 7.0 MV E/A: 0.87 Ao V2 max: 140.0 cm/sec LV V1 max: 121.7 cm/sec PA V2 max: 80.2 cm/sec Ao max P.8 mmHg LV V1 max P.9 mmHg __ TR max morales: 263.1 cm/sec TR max P.7 mmHg ECHO/Echo Complete Interpretation Summary The LV systolic function is normal. EF is 65 %. Hypermobile atrial septum. Tricuspid aortic valve. Possible small Lambl's excrescence. Mild (1+) pulmonic valve insufficiency. Mildly dilated aortic root. Ordering Physician: Esther Gaspar Referring Physician: DENISE CHENG Performed By: Kanchan Olivia RDCS 11/18/24 1317 Date _ Camila Monet MD CC: Dr. Esther Gaspar MD; Dr. Denise Cheng MD; Dr. Barby Louise MD ~ Date Dictated: 11/18/24933 Date Transcribed: 11/18/241316 [employer]: Signed [facility] Work Phone: Electrocardiogram reportOrde red By: Lamar Smallwood on 11-18-2024 EKG study [facility] Cardiovascular Services [address] [place] [address] 12 Lead EKG 11/17/24 2331 MR#: [id number] Acct: [id number] Name: YUMIKO GROSSMAN Rep #:[id number] : 1965 59 From: Lamar whitaker MD Attending Dr: Dr. Barby Louise MD Status: ADM VALORIE Ordering Dr: Esther Gaspar MD Date: 11/17/24 Location: [facility] Sex: F C Admitted: 11/17/24 Test Reason : CP ADMIT Blood Pressure : */* mmHG Vent. Rate : 72 BPM Atrial Rate : 72 BPM P-R Int : 140 ms QRS Dur : 80 ms QT Int : 400 ms P-R-T Axes : 55 15 47 degrees QTcB Int : 438 ms Normal sinus rhythm Normal ECG When compared with ECG of 17-Nov-2024 20:22, MANUAL COMPARISON REQUIRED DATA IS UNCONFIRMED Confirmed by Lamar Smallwood ([id number]), avid editor CANDE WARREN ([id number]) on 11/18/2024 9:09:45 AM Referred By: Confirmed By: Lamar Smallwood 11/18/24908 Date _ Lamar Smallwood MD CC: Dr. Esther Gaspar MD; Dr. Denise Cheng MD; Dr. Barby Louise MD ~ Signed [facility] Other Phone: Eosinophil percentageOrdered By: Esther Gaspar on 11-18-2024 Eosinophils/100 WBC (Bld) 1.8 % 0-5 [facility] Erythrocyte distribution wid th ratioOrdered By: [facility] Hubert on 11-18-2024 Erythrocyte distribution width (RBC) [Ratio] 13.1 % 11.6-14.6 [facility] Erythrocyte distribution wid th standard deviationOrdered By: Esther Hubert on 11-18-2024 Erythrocyte distribution width (RBC) [Ratio] 45.1 fl High 35.1-43.9 [facility] Glomerular filtration rate ( GFR) estimation/1.73 sq m using serum, plasma, or whole bOrdered By: Esther Gaspar on 11-18-2024 GFR/1.73 sq M.predicted among non-blacks MDRD (S/P/Bld) [Vol rate/Area] 100 mL/min/{1.73_m2} >60 [facility] Comment on above: mL/min/1.73m2 CKD-EP I Creatinine Equation (2020) Hematocrit Auto (Bld) [Volum e fraction]Ordered By: Esther Gaspar on 11-18-2024 Hematocrit (Bld) [Volume fraction] 37.1 % 37-47 [facility] Hemoglobin measurementOrdere d By: Esther Gaspar on 11-18-2024 Hemoglobin (Bld) [Mass/Vol] 12.3 g/dL 12.0-15.0 [facility] Immature granulocytes/100 WB C Auto (Bld)Ordered By: Esther Gaspar on 11-18-2024 Immature granulocytes/100 WBC (Bld) 0.100 % 0.0-0.9 [facility] Comment on above: IG% - Immature Granu locytes (promyelocytes, myelocytes and metamyelocytes) > 1% indicates that a LEFT SHIFT is Present. L501.4021on 11-18-2024 Trop T High Sen 79 ng/L Invalid Interpretation Code <=14 [facility] Comment on above: Result Comment: Crit ical Result(s) Called at 0700: by: GIN VANEGAS TO AMP. ??Results read back by same. Performed By: #### L 501.4021 #### [facility] [address] [place], [place], [address] LDL calc ser/plasOrdered By: Esther Gaspar on 11-18-2024 Cholesterol in LDL [Mass/Vol] 90 mg/dL [facility] Comment on above: Sabeiogeoh=865-500 m g/dL & Higher Ljrw=249 mg/dL or greater Laboratory - Chemistry and C hemistry - challengeOrdered By: Esther Gaspar on 11-18-2024 AST [Catalytic activity/Vol] 27 U/L <32 [facility] Lipid Profileon 11-18-2024 CHOL:HDL 6.16 Normal [facility] Comment on above: Performed By: #### L 500.4050, L500.4100, L100.0100 #### [facility] [address] [place], [address] Cholesterol [Mass/Vol] 167 mg/dL Normal <=200 [facility] Comment on above: Result Comment: Chol esterol level, Desirable <200 mg/dL Borderline high cholesterol 200-239 mg/dL High cholesterol >=240 mg/dL Recommendations of the NCEP Adult Treatment Panel for the following risk-cutoff thresholds for the [place] population. Performed By: #### L 500.4050, L500.4100, L100.0100 #### [facility] [address] [place], [address] Cholesterol in HDL [Mass/Vol] 27 mg/dL Low [facility] Comment on above: Result Comment: Elissa onal Cholesterol Education Program (NCEP) guidelines: <40 mg/dL: Low HDL-cholesterol (major risk factor for CHD) >= 60 mg/dL: High HDL-cholesterol (negative risk factor for CHD) HDL-cholesterol is affected by a number of factors, e.g. smoking, exercise, hormones, sex and age. Performed By: #### L 500.4050, L500.4100, L100.0100 #### [facility] [address] [place], [address] Cholesterol in LDL [Mass/Vol] 90 mg/dL Normal [facility] Comment on above: Result Comment: Bord juqsrz=618-412 mg/dL Higher Jxbn=240 mg/dL or greater Performed By: #### L 500.4050, L500.4100, L100.0100 #### [facility] [address] [place], [address] Cholesterol in VLDL [Mass/Vol] 50 mg/dL High 5-40 [facility] Comment on above: Performed By: #### L 500.4050, L500.4100, L100.0100 #### [facility] [address] [place], [address] Triglyceride [Mass/Vol] 249 mg/dL High [facility] Comment on above: Result Comment: The drugs N-Acetylcysteine and Metamizole may falsely depress this assay. Normal range: <150 mg/dL Borderline High: 150-199 mg/dL High: 200-499 mg/dL Very High: >500 mg/dL Performed By: #### L 500.4050, L500.4100, L100.0100 #### [facility] [address] [place], [address] MCV (mean corpuscular volume ) determinationOrdered By: Esther Gaspar on 11-18-2024 MCV (RBC) [Entitic vol] 94.9 fL 81-99 [facility] Mean corpuscular hemoglobin (MCH) determinationOrdered By: Esther Gaspar on 11-18-2024 MCH (RBC) [Entitic mass] 31.5 pg 27.0-32.0 [facility] Mean corpuscular hemoglobin concentration (MCHC) determinationOrdered By: Esther Gaspar on 11-18-2024 MCHC (RBC) [Mass/Vol] 33.2 g/dL 32-36 [facility] Mean platelet volume determi nationOrdered By: Esther Gaspar on 11-18-2024 Platelet mean volume (Bld) [Entitic vol] 8.9 fL 6.2-12.0 [facility] Monocyte percentageOrdered B y: Esther Gaspar on 11-18-2024 Monocytes/100 WBC (Bld) 11.6 % High 0-[address] [facility] Neutrophil percentageOrdered By: Esther Gaspar on 11-18-2024 Neutrophils/100 WBC (Bld) 40.8 % Low 47-70 [facility] Nucleated red blood cell per centageOrdered By: Esther Gaspar on 11-18-2024 Nucleated RBC/100 WBC (Bld) [Ratio] 0 % 0-5 [facility] Platelet countOrdered By: Julieta Gaspar on 11-18-2024 Platelets (Bld) [#/Vol] 233 10*3/uL 150-450 [facility] Potassium measurement (mass/ volume)Ordered By: Esther Gaspar on 11-18-2024 Potassium (Unsp spec) [Mass/Vol] 3.9 mmol/L 3.3-5.1 [facility] RBC Auto (Bld) [#/Vol]Ordere d By: Esther Gaspar on 11-18-2024 RBC (Bld) [#/Vol] 3.91 10*6/uL Low 4.2-5.4 [facility] Screening total cholesterol/ high density lipoprotein (HDL) cholesterol ratioOrdered By: Esther Gaspar on 11-18-2024 Cholesterol.total/Karely sterol in HDL [Mass ratio] 6.16 {ratio} [facility] Serum creatinine measurement (mass/volume)Ordered By: Esther Gaspar on 11-18-2024 Creatinine [Mass/Vol] 0.68 mg/dL Low 0.70-1.20 [facility] Serum globulin measurementOr dered By: Esther Gaspar on 11-18-2024 Globulin (S) [Mass/Vol] 2.6 g/dL 2.2-4.[address] [facility] Serum glucose measurement (m ass/volume)Ordered By: Esther Gaspar on 11-18-2024 Glucose [Mass/Vol] 93 mg/dL 70-99 [facility] Serum or plasma alanine turcios otransferase (ALT) measurementOrdered By: Esther Gaspar on 11-18-2024 ALT [Catalytic activity/Vol] 34 U/L <35 [facility] Serum or plasma albumin hannah urement (mass/volume)Ordered By: Esther Gaspar on 11-18-2024 Albumin [Mass/Vol] 3.6 g/dL 3.5-5.0 [facility] Serum or plasma albumin/glob ulin mass ratioOrdered By: Esther Hubert on 11-18-2024 Albumin/Globulin [Mass ratio] 1.4 {ratio} 0.9-2.4 [facility] Serum or plasma alkaline daya sphatase measurementOrdered By: Esther Gaspar on 11-18-2024 ALP [Catalytic activity/Vol] 53 U/L 35-104 [facility] Serum or plasma calcium hannah urement (mass/volume)Ordered By: Esther Gaspar on 11-18-2024 Calcium [Mass/Vol] 9.0 mg/dL 7.6-11.0 [facility] Serum or plasma cholesterol in HDL measurement (mass/volume)Ordered By: Esther Gaspar on 11-18-2024 Cholesterol in HDL [Mass/Vol] 27 mg/dL Low >40 [facility] Comment on above: National Cholesterol Education Program (NCEP) guidelines:<40 mg/dL: Low HDL-cholesterol (major risk factor for CHD)>= 60 mg/dL: High HDL-cholesterol (negative risk factor for CHD)HDL-cholesterol is affected by a number of factors, e.g. smoking, exercise, hormones, sex and age. Serum or plasma cholesterol measurement (mass/volume)Ordered By: Esthre Gaspar on 11-18-2024 Cholesterol [Mass/Vol] 167 mg/dL <201 [facility] Comment on above: Cholesterol level, D esirable <200 mg/dLBorderline high cholesterol 200-239 mg/dLHigh cholesterol >=240 mg/dLRecommendations of the NCEP Adult Treatment Panel for the following risk-cutoff thresholds for the [place] population. Serum or plasma urea nitroge n measurement (mass/volume)Ordered By: Esther Gaspar on 11-18-2024 Urea nitrogen [Mass/Vol] 13 mg/dL 4-19 [facility] Sodium levelOrdered By: Molly Gaspar on 11-18-2024 Sodium [Moles/Vol] 142 mmol/L 133-145 [facility] Stress Reporton 11-18-2024 Stress Report [facility] Cardiovascular Services [address] [place] [address] MR#: [id number] Acct: [id number] Name: YUMIKO GROSSMAN Rep #: [id number] : 1965 59 From: Camila Monet MD Primary Care: Dr. Denise Cheng MD Status: A DM VALORIE Referring Dr: Sex: F C Stress Test Report Date: 11/18/2024 Procedure: Pharmacologic stress nuclear imaging study Indications: Chest pain Consent: Per the patient Procedure: The patient underwent pharmacologic (Regadenoson 0.4mg ) evaluation with a peak heart rate of 96 beats per minute (59%predicted maximal heart rate) and a peak blood pressure of 116/68 mmHg. The baseline ECG demonstrated sinus rhythm. The peak pharmacologic ECG did not show any ischemic changes. There were no cardiac dysrhythmias pretest, during pharmacologic infusion, or recovery. Patient had sharp chest discomfort prior to the test which continued without any change during infusion and in recovery. The patient was injected with 11.8 millicuries of technetium 99m Cardiolite and subsequently rest SPECT Cardiolite nuclear imaging was obtained in the horizontal long, vertical long, and short axis views. The patient underwent pharmacologic (Regadenoson) evaluation. The patient was injected with 34.5 millicuries of technetium 99m Cardiolite and subsequently stress SPECT Cardiolite nuclear imaging was obtained in the horizontal long, vertical long, and short axis views. A gated Cardiolite study at peak stress was obtained. The examination was stopped secondary to completion of protocol. Rest and stress SPECT Cardiolite nuclear imaging status post realignment, normalization, and attenuation correction demonstrate no fixed or reversible perfusion defects. There is end systolic thickening and brightening. The gated Cardiolite study demonstrates myocardial thickening and inward wall motion. The reported LVEF is 80%. Impression: 1. Pharmacologic (Regadenoson) evaluation 2. Peak pharmacologic ECG with no ischemic changes. 3. There were no cardiac dysrhythmias pretest, during pharmacologic infusion, or recovery. 5. Rest and stress SPECT Cardiolite nuclear imaging demonstrate relative uniform tracer uptake and myocardial perfusion appearing within normal limits. 6. The gated Cardiolite study reports an LVEF of 80%. This note was generated with Dragon dictation software. It may contain incorrect words, spelling, and punctuation that were not noted in checking the note before signing. 11/18/24 1048 Date Camila Monet MD CC: Dr. Esther Gaspar MD; Dr. Natalia Felix DO; Dr. Denise Cheng MD; Dr. Barby Louise MD Date Dictated: 11/18/241045 Date Transcribed: 11/18/241045 [employer]: AR Signed Normal [facility] Total proteinOrdered By: Marva Gaspar on 11-18-2024 Protein [Mass/Vol] 6.3 g/dL 5.9-8.4 [facility] Triglycerides measurementOrd ered By: Esther Gaspar on 11-18-2024 Triglyceride [Mass/Vol] 249 mg/dL High <199 [facility] Comment on above: The drugs N-Acetylcy steine and Metamizole may falsely depress this assay. Normal range: <150 mg/dLBorderline High: 150-199 mg/dLHigh: 200-499 mg/dLVery High: >500 mg/dL Troponin T.cardiac [Mass/vol ume] in Serum or Plasma by High sensitivity methodOrdered By: Esther Gaspar on 11-18-2024 Troponin T.cardiac High sensitivity method [Mass/Vol] 79 ng/L High <14 [facility] Comment on above: Critical Result(s) C alled at 0700: by: GIN VANEGAS TO [facility]. Results read back by same. White blood cell (WBC) count Ordered By: Esther Gaspar on 11-18-2024 WBC (Bld) [#/Vol] 6.7 10*3/uL 4.4-11.0 [facility] 12 Lead EKGon 11-17-2024 12 Lead EKG [facility] Cardiovascular Services [address] [place] [address] 12 Lead EKG 11/17/24 2331 MR#: [id number] Acct: [id number] Name: YUMIKO GROSSMAN Rep #: [id number] : 1965 59 From: Lamar Smallwood MD Attending Dr: Dr. Barby Louise MD Status: DES Bhardwaj VALORIE Ordering Dr: Esther Gaspar MD Date: 11/17/24 Location: [facility] Sex: F C Admitted: 11/17/24 Test Reason : CP ADMIT Blood Pressure : */* mmHG Vent. Rate : 72 BPM Atrial Rate : 72 BPM P-R Int : 140 ms QRS Dur : 80 ms QT Int : 400 ms P-R-T Axes : 55 15 47 degrees QTcB Int : 438 ms Normal sinus rhythm Normal ECG When compared with ECG of 17-Nov-2024 20:22, MANUAL COMPARISON REQUIRED DATA IS UNCONFIRMED Confirmed by Lamar Smallwood ([id number]), avid editor CANDE WARREN ([id number]) on 11/18/2024 9:09:45 AM Referred By: Confirmed By: Lamar Smallwood 11/18/24908 Date Lamar Smallwood MD CC: Dr. Esther Gaspar MD; Dr. Denise Cheng MD; Dr. Barby Louise MD Signed [facility] 12 Lead EKG [facility] Cardiovascular Services [address] [place] [address] 12 Lead EKG 11/17/242021 MR#: [id number] Acct: [id number] Name: YUMIKO GROSSMAN Rep #: [id number] : 1965 59 From: Lamar Smallwood MD Attending Dr: Dr. Barby Louise MD Status: ERWIN Faith VALORIE Ordering Dr: Natalia Felix DO Date: 11/17/24 Location: [facility] Sex: F C Admitted: 11/17/24 Test Reason : REPEAT Blood Pressure : */* mmHG Vent. Rate : 87 BPM Atrial Rate : 87 BPM P-R Int : 130 ms QRS Dur : 78 ms QT Int : 370 ms P-R-T Axes : 29 4 61 degrees QTcB Int : 445 ms Normal sinus rhythm Normal ECG Confirmed by Lamar Smallwood ([id number]), avid editor CANDE WARREN ([id number]) on 11/19/2024 6:16:37 AM Referred By: Confirmed By: Lamar Smallwood 11/19/24615 Date Lamar Smallwood MD CC: Dr. Natalia Felix DO; Dr. Denise Cheng MD; Dr. Barby Louise MD Signed [facility] 12 Lead EKG [facility] Cardiovascular Services [address] [place] [address] 12 Lead EKG 11/17/24 1644 MR#: [id number] Acct: [id number] Name: YUMIKO GROSSMAN Rep #: [id number] : 1965 59 From: Lamar Smallwood MD Attending Dr: Dr. Barby Louise MD Status: DI S VALORIE Ordering Dr: Natalia Felix DO Date: 11/17/24 Location: [facility] Sex: F C Admitted: 11/17/24 Test Reason : CP Blood Pressure : */* mmHG Vent. Rate : 92 BPM Atrial Rate : 92 BPM P-R Int : 136 ms QRS Dur : 80 ms QT Int : 362 ms P-R-T Axes : 41 9 65 degrees QTcB Int : 447 ms Normal sinus rhythm Normal ECG Confirmed by Lamar Smallwood ([id number]), avid editor CANDE WARREN ([id number]) on 11/19/2024 6:16:27 AM Referred By: BB Confirmed By: Lamar Smallwood 11/19/24615 Date Lamar Smallwood MD CC: Dr. Natalia Felix DO; Dr. Denise Cheng MD; Dr. Barby Louise MD Signed [facility] Absolute lymphocyte countOrd ered By: Natalia Felix on 11-17-2024 Lymphocytes Auto (Unsp spec) [#/Vol] 3.43 10*3/uL 0.83-4.51 [facility] Absolute neutrophil countOrd ered By: Natalia Felix on 11-17-2024 Neutrophils (Bld) [#/Vol] 3.0 10*3/uL 2.0-7.7 [facility] Anion gap in Serum or Plasma Ordered By: Natalia Felix on 11-17-2024 Anion gap [Moles/Vol] 12 mmol/L 5-15 [facility] Automated lymphocyte count a s percentage of total leukocytesOrdered By: Natalia Felix on 11-17-2024 Lymphocytes/100 WBC Auto (Unsp spec) 46.6 % High 19-41 [facility] BUN/creatinine ratioOrdered By: Natalia Felix on 11-17-2024 Urea nitrogen/Creatinine [Mass ratio] 16.7 mg/mg - [facility] Basic Metabolic Profile (BMP )on 11-17-2024 BUN/CRE 16.7 RATIO Normal - [facility] Comment on above: Performed By: #### L 801.2600, L3300.1750 #### [facility] Laboratory [address] [place], [address] Calcium [Mass/Vol] 9.6 mg/dL Normal 7.6-11.0 [facility] Comment on above: Performed By: #### L 801.2600, L3300.1750 #### [facility] [address] [place], [address] Chloride [Moles/Vol] 104 mmol/L Normal 98-108 [facility] Comment on above: Performed By: #### L 801.2600, L3300.1750 #### [facility] [address] [place], [address] CO2 [Moles/Vol] 26.2 mmol/L Normal 21.0-32.0 [facility] Comment on above: Performed By: #### L 801.2600, L3300.1750 #### [facility] [address] [place], [address] Creatinine [Mass/Vol] 0.81 mg/dL Normal 0.70-1.20 [facility] Comment on above: Performed By: #### L 801.2600, L3300.1750 #### [facility] [address] [place], [address] ECRCL 78.15 ml/min Normal 50-250 [facility] Comment on above: Performed By: #### L 801.2600, L3300.1750 #### [facility] [address] [place], [address] GAP 12 Normal 5-15 [facility] Comment on above: Performed By: #### L 801.2600, L3300.1750 #### [facility] [address] [place], [address] GFR/1.73 sq M.predicted among non-blacks MDRD (S/P/Bld) [Vol rate/Area] 84 mL/min/{1.73_m2} Normal >60 [facility] Comment on above: Result Comment: mL/m in/1.73m2 CKD-EPI Creatinine Equation (2020) Performed By: #### L 801.2600, L3300.1750 #### [facility] [address] [place], [address] Glucose [Mass/Vol] 130 mg/dL High 70-99 [facility] Comment on above: Performed By: #### L 801.2600, L3300.1750 #### [facility] [address] [place], [address] Potassium [Moles/Vol] 4.0 mmol/L Normal 3.3-5.1 [facility] Comment on above: Performed By: #### L 801.2600, L3300.1750 #### [facility] [address] [place], [address] Sodium [Moles/Vol] 142 mmol/L Normal 133-145 [facility] Comment on above: Performed By: #### L 801.2600, L3300.1750 #### [facility] [address] [place], [address] Urea nitrogen [Mass/Vol] 14 mg/dL Normal 4-19 [facility] Comment on above: Performed By: #### L 801.2600, L3300.1750 #### [facility] [address] [place], [address] Basophil percentageOrdered B y: Natalia Felix on 11-17-2024 Basophils/100 WBC (Bld) 0.7 % 0-[address] [facility] Bilirubin directOrdered By: Natalia Felix on 11-17-2024 Bilirubin.direct [Mass/Vol] 0.20 mg/dL 0.00-0.30 [facility] Bilirubin, totalOrdered By: Natalia Felix on 11-17-2024 Bilirubin [Mass/Vol] 0.58 mg/dL 0.00-1.30 [facility] CBC W/Diff, Automatedon 06- Absolute Lymph 3.43 X10 3/uL Normal 0.83-4.51 [facility] Comment on above: Performed By: #### L 499.0042 #### [facility] [address] [place], [address] Absolute Neut 3.0 X10 3/uL Normal 2.0-7.7 [facility] Comment on above: Performed By: #### L 499.0042 #### [facility] [address] [place], [address] Basophils/100 WBC (Bld) 0.7 % Normal 0-[address] [facility] Comment on above: Performed By: #### L 499.0042 #### [facility] [address] [place], [address] Eosinophils/100 WBC (Bld) 2.0 % Normal 0-5 [facility] Comment on above: Performed By: #### L 499.0042 #### [facility] [address] [place], [address] Erythrocyte distribution width (RBC) [Ratio] 12.9 % Normal 11.6-14.6 [facility] Comment on above: Performed By: #### L 499.0042 #### [facility] [address] [place], [address] Hematocrit (Bld) [Volume fraction] 41.6 % Normal 37-47 [facility] Comment on above: Performed By: #### L 499.0042 #### [facility] [address] [place], [address] Hemoglobin (Bld) [Mass/Vol] 13.9 g/dL Normal 12.0-15.0 [facility] Comment on above: Performed By: #### L 499.0042 #### [facility] [address] [place], [address] IG% 0.100 Normal 0.0-0.9 [facility] Comment on above: Result Comment: IG% - Immature Granulocytes (promyelocytes, myelocytes and metamyelocytes) > 1% indicates that a LEFT SHIFT is Present. Performed By: #### L 499.0042 #### [facility] [address] [place], [address] Lymphocytes/100 WBC (Bld) 46.6 % High 19-41 [facility] Comment on above: Performed By: #### L 499.0042 #### [facility] [address] [place], [address] MCH (RBC) [Entitic mass] 31.7 pg Normal 27.0-32.0 [facility] Comment on above: Performed By: #### L 499.0042 #### [facility] [address] [place], [address] MCHC (RBC) [Mass/Vol] 33.4 g/dL Normal 32-36 [facility] Comment on above: Performed By: #### L 499.0042 #### [facility] [address] [place], [address] MCV (RBC) [Entitic vol] 95.0 fL Normal 81-[address] [facility] Comment on above: Performed By: #### L 499.0042 #### [facility] [address] [place], [address] Monocytes/100 WBC (Bld) 10.2 % High 0-10 [facility] Comment on above: Performed By: #### L 499.0042 #### [facility] [address] [place], [address] Neutrophils/100 WBC (Bld) 40.4 % Low 47-70 [facility] Comment on above: Performed By: #### L 499.0042 #### [facility] [address] [place], [address] Nucleated RBC (Bld) [#/Vol] 0 10*3/uL Normal 0-5 [facility] Comment on above: Performed By: #### L 499.0042 #### [facility] [address] [place], [address] Platelet mean volume (Bld) [Entitic vol] 9.3 fL Normal 6.2-12.0 [facility] Comment on above: Performed By: #### L 499.0042 #### [facility] [address] [place], [address] Platelets (Bld) [#/Vol] 308 10*3/uL Normal 150-450 [facility] Comment on above: Performed By: #### L 499.0042 #### [facility] [address] [place], [address] RBC (Bld) [#/Vol] 4.38 10*6/uL Normal 4.2-5.4 [facility] Comment on above: Performed By: #### L 499.0042 #### [facility] [address] [place], [address] RDW SD 44.7 fl High 35.1-43.9 [facility] Comment on above: Performed By: #### L 499.0042 #### [facility] [address] [place], [address] WBC (Bld) [#/Vol] 7.4 10*3/uL Normal 4.4-11.0 [facility] Comment on above: Performed By: #### L 499.0042 #### [facility] [address] [place], [address] CRPon 11-17-2024 C-REACTIVE PROT < 3.00 Normal 0.0-3.0 [facility] Comment on above: Order Comment: Comme nts: may add to ED labsComments: May add to ED labs*NOT STORED YET* Performed By: #### L 499.0042 #### [facility] [address] [place], [address] CTA Chest W/WO Contraston CTA Chest W/WO Contrast [facility] Imaging Services [address] [place], [place] [address] CTA Chest W/WO Contrast MR#: [id number] Acct: [id number] Name: YUMIKO GROSSMAN Rep #: [id number] : 1965 F 59 From: Jacqueline Amor nd, MD PCP: Dr. Denise Cheng MD Status: [facility] ER Study: CTA Chest W/WO Contrast Date of Exam: 11/17/24 Exam# [id number] Ordering Dr: Natalia Felix DO PROCEDURE: CTA [...] 3. Trace left pleural effusion. Reading Location: [facility] CC: Dr. Natalia Felix DO; Dr. Denise Cheng MD [employer]: Signed Normal [facility] Carbon dioxide, total [Moles /volume] in Central venous bloodOrdered By: Natalia Felix on 11-17-2024 CO2 [Moles/Vol] 26.2 mmol/L 21.0-32.0 [facility] Chest PA and Lateralon 11-17 Chest PA and Lateral [facility] Imaging Services [address] [place] [address] Chest PA and Lateral MR#: [id number] Acct: [id number] Name: YUMIKO GROSSMAN Rep #: [id number] : 1965 F 59 From: Jacqueline Amor nd, MD PCP: Dr. Denise Cheng MD Status: REG ER Study: Chest PA and Lateral Date of Exam: 11/17/24 Exam# [id number] Ordering Dr: Natalia Felix DO PROCEDURE: CHEST [...] Lateral IMPRESSION: NO ACUTE FINDINGS. Reading Location: [facility] CC: Dr. Natalia Felix DO; Dr. Denise Cheng MD [employer]: Signed Normal [facility] Chloride assayOrdered By: Norman Felix on 11-17-2024 Chloride [Moles/Vol] 104 mmol/L 98-108 [facility] D-Dimer Quantitative (DVT/PE )on 11-17-2024 D-DIMER QUANT 0.30 FEU/ug/m Normal 0.27-0.49 [facility] Comment on above: Result Comment: NORM AL D-Dimer level (<0.50) indicates no DVT or PE. Performed By: #### L 801.2600, L3300.1750 #### [facility] [address] [facility] [place], [address] Emergency Department Summary on 11-17-2024 Emergency Department Summary [facility] Medical Records Department [address] [place] [address] Emergency Department Summary 11/17/24 MR#: [id number] Acct: [id number] Name: YUMIOK GROSSMAN Rep #: [id number] : 1965 59 From: Natalia Felix DO [...] surgery on her knee this coming Monday. [facility] Medical History (Updated 11/17/24 @ 22:[address] Natalia Felix, ) ADHD Anxiety and depression Hx of migraines [...] 21:00 Temperatur (more content not included)... Normal [facility] Eosinophil percentageOrdered By: Natalia Felix on 11-17-2024 Eosinophils/100 WBC (Bld) 2.0 % 0-5 [facility] Erythrocyte Sed Rateon 11-17 SED RATE 2 mm/hr Normal 0-30 [facility] Comment on above: Performed By: #### L 101.9900, L505.5000, L501.5200, L501.6710 #### [facility] [address] [place], [address] Erythrocyte distribution wid th ratioOrdered By: Natalia Felix on 11-17-2024 Erythrocyte distribution width (RBC) [Ratio] 12.9 % 11.6-14.6 [facility] Erythrocyte distribution wid th standard deviationOrdered By: Nataliakrista Felix on 11-17-2024 Erythrocyte distribution width (RBC) [Ratio] 44.7 fl High 35.1-43.9 [facility] Erythrocyte sedimentation ra teOrdered By: Esther Gaspar on 11-17-2024 ESR (Bld) [Velocity] 2 mm/h 0-30 [facility] Glomerular filtration rate ( GFR) estimation/1.73 sq m using serum, plasma, or whole bOrdered By: Natalia Felix on 11-17-2024 GFR/1.73 sq M.predicted among non-blacks MDRD (S/P/Bld) [Vol rate/Area] 84 mL/min/{1.73_m2} >60 [facility] Comment on above: mL/min/1.73m2 CKD-EP I Creatinine Equation (2020) H AND P Exam - [facility] 11-17-2024 H&P Exam - Hospitalist [facility] Medical Records Department [address] [place] [address] H P Exam - Hospitalist 11/17/24 2213 MR#: [id number] Acct: [id number] Name: YUMIKO GROSSMAN Rep #: [id number] : 1965 59 From: Esther Gaspar MD PCP: Dr. Denise Cheng MD Status:ADM IN Location: [address] - General General Date of Admission: 11/17/24 Date of Service: 11/17/24 Chief Complaint: Chest pain HPI Narrative The patient is a 59 y/o F w/ PMHx: Anxiety and Depression/ADHD, Chronic migraines, OA who presents to the [facility] ED on 11/17/2024 with history of [...] 1, cyclobenzaprine 10 mg p.o. x 1. [facility] Medical History ADHD Anxiety and depression Hx [...] wounds. CARDIOVAS (more content not included)... Normal [facility] Hematocrit Auto (Bld) [Volum e fraction]Ordered By: Natalia Felix on 11-17-2024 Hematocrit (Bld) [Volume fraction] 41.6 % 37-47 [facility] Hemoglobin measurementOrdere d By: Natalia Felix on 11-17-2024 Hemoglobin (Bld) [Mass/Vol] 13.9 g/dL 12.0-15.0 [facility] Immature granulocytes/100 WB C Auto (Bld)Ordered By: Natalia Felix on 11-17-2024 Immature granulocytes/100 WBC (Bld) 0.100 % 0.0-0.9 [facility] Comment on above: IG% - Immature Granu locytes (promyelocytes, myelocytes and metamyelocytes) > 1% indicates that a LEFT SHIFT is Present. L499.0042on 11-17-2024 Trop T High Sen 69 ng/L Invalid Interpretation Code <=14 [facility] Comment on above: Result Comment: Crit ical Result(s) Called HORR at: 2017 by: MILLICENT??Results read back by same. Performed By: #### L 499.0042 #### [facility] [address] [place], [place], [address] L499.0043on 11-17-2024 Trop T High Sen 54 ng/L Invalid Interpretation Code <=14 [facility] Comment on above: Result Comment: Crit ical Result(s) Called at 2221: by: NBURNS TO ETEAL??Results read back by same. Performed By: #### L 499.0042 #### [facility] [address] [place], [place], [address] L501.4021on 11-17-2024 Trop T High Sen 76 ng/L Invalid Interpretation Code <=14 [facility] Comment on above: Result Comment: Crit ical Result(s) Called HORR at: 2017 by: MILLICENT??Results read back by same. Performed By: #### L 499.0042 #### [facility] [address] [place], [place], [address] Laboratory - Chemistry and C hemistry - challengeOrdered By: Natalia Felix on 11-17-2024 AST [Catalytic activity/Vol] 37 U/L High <32 [facility] Lipaseon 11-17-2024 Lipase [Catalytic activity/Vol] 40 U/L Normal 13-75 [facility] Comment on above: Result Comment: Radha garcia note: LIPASE revised reference range effective 22. New Lipase methodology. Expected to produce lower values than the previous assay method. NEW Reference Range: 13 - 75 U/L Performed By: #### L 801.2600, L3300.1750 #### [facility] [address] [place], [place], [address] Lipase measurementOrdered By : Natalia Felix on 11-17-2024 Lipase [Catalytic activity/Vol] 40 U/L 13-75 [facility] Comment on above: Please note:LIPASE r evised reference range effective 22. New Lipase methodology. Expected to produce lower values than the previous assay method. NEW Reference Range: 13 - 75 U/L Liver Profileon 11-17-2024 Albumin [Mass/Vol] 4.5 g/dL Normal 3.5-5.0 [facility] Comment on above: Performed By: #### L 801.2600, L3300.1750 #### [facility] [address] [place], [address] ALK PHOS 68 U/L Normal 35-104 [facility] Comment on above: Performed By: #### L 801.2600, L3300.1750 #### [facility] [address] [place], [address] ALT [Catalytic activity/Vol] 44 U/L High <=34 [facility] Comment on above: Performed By: #### L 801.2600, L3300.1750 #### [facility] [address] [place], [address] AST [Catalytic activity/Vol] 37 U/L High <=31 [facility] Comment on above: Performed By: #### L 801.2600, L3300.1750 #### [facility] [address] [place], [address] Bilirubin [Mass/Vol] 0.58 mg/dL Normal 0.00-1.30 [facility] Comment on above: Performed By: #### L 801.2600, L3300.1750 #### [facility] [address] [place], [address] Bilirubin.direct [Mass/Vol] 0.20 mg/dL Normal 0.00-0.30 [facility] Comment on above: Performed By: #### L 801.2600, L3300.1750 #### [facility] [address] [place], [address] Globulin (S) [Mass/Vol] 3.0 g/dL Normal 2.2-4.2 [facility] Comment on above: Performed By: #### L 801.2600, L3300.1750 #### [facility] [address] [place], [address] T PROT 7.5 g/dL Normal 5.9-8.4 [facility] Comment on above: Performed By: #### L 801.2600, L3300.1750 #### [facility] [address] [place], [address] MCV (mean corpuscular volume ) determinationOrdered By: Natalia Felix on 11-17-2024 MCV (RBC) [Entitic vol] 95.0 fL 81-[address] [facility] Magnesiumon 11-17-2024 Magnesium [Mass/Vol] 2.0 mg/dL Normal 1.5-2.2 [facility] Comment on above: Order Comment: Comme nts: may add to ED labs Comments: May add to ED labs *NOT STORED YET* Performed By: #### L 101.9900, L505.5000, L501.5200, L501.6710 #### [facility] [address] [place], [address] Magnesium measurement (mass/ volume)Ordered By: Esther Gaspar on 11-17-2024 Magnesium (Unsp spec) [Mass/Vol] 2.0 mg/dL 1.5-2.2 [facility] Mean corpuscular hemoglobin (MCH) determinationOrdered By: Natalia Felix on 11-17-2024 MCH (RBC) [Entitic mass] 31.7 pg 27.0-32.0 [facility] Mean corpuscular hemoglobin concentration (MCHC) determinationOrdered By: Natalia Felix on 11-17-2024 MCHC (RBC) [Mass/Vol] 33.4 g/dL 32-36 [facility] Mean platelet volume determi nationOrdered By: Natalia Felix on 11-17-2024 Platelet mean volume (Bld) [Entitic vol] 9.3 fL 6.2-12.0 [facility] Monocyte percentageOrdered B y: Natalia Felix on 11-17-2024 Monocytes/100 WBC (Bld) 10.2 % High 0-[address] [facility] Neutrophil percentageOrdered By: Natalia Felix on 11-17-2024 Neutrophils/100 WBC (Bld) 40.4 % Low 47-70 [facility] Nucleated red blood cell per centageOrdered By: Natalia Felix on 11-17-2024 Nucleated RBC/100 WBC (Bld) [Ratio] 0 % 0-5 [facility] Platelet countOrdered By: Norman Felix on 11-17-2024 Platelets (Bld) [#/Vol] 308 10*3/uL 150-450 [facility] Potassium measurement (mass/ volume)Ordered By: Natalia Felix on 11-17-2024 Potassium (Unsp spec) [Mass/Vol] 4.0 mmol/L 3.3-5.1 [facility] RBC Auto (Bld) [#/Vol]Ordere d By: Natalia Felix on 11-17-2024 RBC (Bld) [#/Vol] 4.38 10*6/uL 4.2-5.4 [facility] Serum creatinine measurement (mass/volume)Ordered By: Natalia Felix on 11-17-2024 Creatinine [Mass/Vol] 0.81 mg/dL 0.70-1.20 [facility] Serum globulin measurementOr dered By: Natalia Felix on 11-17-2024 Globulin (S) [Mass/Vol] 3.0 g/dL 2.2-4.[address] [facility] Serum glucose measurement (m ass/volume)Ordered By: Natalia Felix on 11-17-2024 Glucose [Mass/Vol] 130 mg/dL High 70-99 [facility] Serum or plasma C reactive p rotein measurement (mass/volume)Ordered By: Esther Gaspar on 11-17-2024 CRP [Mass/Vol] mg/L 0.0-3.0 [facility] Serum or plasma alanine turcios otransferase (ALT) measurementOrdered By: Natalia Felix on 11-17-2024 ALT [Catalytic activity/Vol] 44 U/L High <35 [facility] Serum or plasma albumin hannah urement (mass/volume)Ordered By: Natalia Felix on 11-17-2024 Albumin [Mass/Vol] 4.5 g/dL 3.5-5.0 [facility] Serum or plasma alkaline daya sphatase measurementOrdered By: Natalia Felix on 11-17-2024 ALP [Catalytic activity/Vol] 68 U/L 35-104 [facility] Serum or plasma calcium hannah urement (mass/volume)Ordered By: Natalia Felix on 11-17-2024 Calcium [Mass/Vol] 9.6 mg/dL 7.6-11.0 [facility] Serum or plasma urea nitroge n measurement (mass/volume)Ordered By: Natalia Felix on 11-17-2024 Urea nitrogen [Mass/Vol] 14 mg/dL 4-19 [facility] Sodium levelOrdered By: Ottoniel Felix on 11-17-2024 Sodium [Moles/Vol] 142 mmol/L 133-145 [facility] Total proteinOrdered By: Asha Felix on 11-17-2024 Protein [Mass/Vol] 7.5 g/dL 5.9-8.4 [facility] Troponin T.cardiac [Mass/vol ume] in Serum or Plasma by High sensitivity methodOrdered By: Natalia Felix on 11-17-2024 Troponin T.cardiac High sensitivity method [Mass/Vol] 54 ng/L High <14 [facility] Comment on above: Critical Result(s) C alled at 2221: by: OMKAR TO ETEAL Results read back by same. Troponin T.cardiac High sensitivity method [Mass/Vol] 69 ng/L High <14 [facility] Comment on above: Critical Result(s) C alled HORR at: 2017 by: MILLICENT Results read back by same. Troponin T.cardiac High sensitivity method [Mass/Vol] 76 ng/L High <14 [facility] Comment on above: Critical Result(s) C alled HORR at: 2017 by: MILLICENT Results read back by same. Urine Drug Screen (VISTA)on 11-17-2024 AMPHETAMINES Normal <1000 ng/mL [facility] Comment on above: Result Comment: ALFREDITO ENT DISCHARGED-NO SPECIMEN REC'D Performed By: #### L 499.0042 #### [facility] [address] [place] [address] BARBITIURATES Normal < 200 ng/mL [facility] Comment on above: Result Comment: ALFREDITO ENT DISCHARGED-NO SPECIMEN REC'D Performed By: #### L 499.0042 #### [facility] [address] [place] [address] BENZODIAZIPINE Normal < 200 ng/mL [facility] Comment on above: Result Comment: ALFREDITO ENT DISCHARGED-NO SPECIMEN REC'D Performed By: #### L 499.0042 #### [facility] [address] [place] [id number] ([address] BUP Ur Drug Scr Normal < 200 ng/mL [facility] Comment on above: Result Comment: ALFREDITO ENT DISCHARGED-NO SPECIMEN REC'D Performed By: #### L 499.0042 #### [facility] [address] [facility] [address] COCAINE Normal < 300 ng/mL [facility] Comment on above: Result Comment: ALFREDITO ENT DISCHARGED-NO SPECIMEN REC'D Performed By: #### L 499.0042 #### [facility] [address] [facility] [address] Fentanyl Normal [facility] Comment on above: Result Comment: ALFREDITO ENT DISCHARGED-NO SPECIMEN REC'D Performed By: #### L 499.0042 #### [facility] [address] [facility] [address] METHADONE Normal < 300 ng/mL [facility] Comment on above: Result Comment: ALFREDITO ENT DISCHARGED-NO SPECIMEN REC'D Performed By: #### L 499.0042 #### [facility] [address] [place] [id number] OPIATES Normal < 300 ng/mL [facility] Comment on above: Result Comment: ALFREDITO ENT DISCHARGED-NO SPECIMEN REC'D Performed By: #### L 499.0042 #### [facility] [address] [facility] [address] OXYCODONE Normal < 100 ng/mL [facility] Comment on above: Result Comment: ALFREDITO ENT DISCHARGED-NO SPECIMEN REC'D Performed By: #### L 499.0042 #### [facility] [address] [place] [id number] PCP Normal < 25 ng/mL [facility] Comment on above: Result Comment: ALFREDITO ENT DISCHARGED-NO SPECIMEN REC'D Performed By: #### L 499.0042 #### [facility] [address] [place] [id number] THC Normal < 50 ng/mL [facility] Comment on above: Result Comment: ALFREDITO ENT DISCHARGED-NO SPECIMEN REC'D Performed By: #### L 499.0042 #### [facility] [address] [place], [place], [id number] White blood cell (WBC) count Ordered By: Natalia Felix on 11-17-2024 WBC (Bld) [#/Vol] 7.4 10*3/uL 4.4-11.0 [facility] ANTINUCLEAR ANTIBODIES DIREC Ton 11-05-2024 BLAKE,DIRECT Positive Abnormal Negative [facility] Comment on above: Result Comment: Perf ormed at: - [facility] [address] [id number] Ticker Wirer: Dominick De La Rosa PhD, Phone: [phone] Performed By: #### L 660.8507, G2752.7346 #### [facility] [address] [place], [place], [id number] Absolute lymphocyte countOrd ered By: Denise Cheng on 10-31-2024 Lymphocytes Auto (Unsp spec) [#/Vol] 2.48 10*3/uL 0.83-4.51 [facility] Absolute neutrophil countOrd ered By: Denise Cheng on 10-31-2024 Neutrophils (Bld) [#/Vol] 2.7 10*3/uL 2.0-7.7 [facility] Anion gap in Serum or Plasma Ordered By: Denise Cheng on 10-31-2024 Anion gap [Moles/Vol] 10 mmol/L 5- [facility] Automated lymphocyte count a s percentage of total leukocytesOrdered By: Denise Cheng on 10-31-2024 Lymphocytes/100 WBC Auto (Unsp spec) 40.6 % - [facility] BUN/creatinine ratioOrdered By: Denise Cheng on 10-31-2024 Urea nitrogen/Creatinine [Mass ratio] 21.1 mg/mg High 10- [facility] Basophil percentageOrdered B y: Denise Cheng on 10-31-2024 Basophils/100 WBC (Bld) 0.8 % 0-[address] [facility] Bilirubin, totalOrdered By: Denise Cheng on 10-31-2024 Bilirubin [Mass/Vol] 0.57 mg/dL 0.00-1.30 [facility] CBC W/Diff, Automatedon 05-2 Absolute Lymph 2.48 X10 3/uL Normal 0.83-4.51 [facility] Comment on above: Performed By: #### L 499.0042 #### [facility] [address] [place], [address] Absolute Neut 2.7 X10 3/uL Normal 2.0-7.7 [facility] Comment on above: Performed By: #### L 499.0042 #### [facility] [address] [place], [address] Basophils/100 WBC (Bld) 0.8 % Normal 0-[address] [facility] Comment on above: Performed By: #### L 499.0042 #### [facility] [address] [place], [address] Eosinophils/100 WBC (Bld) 3.3 % Normal 0-5 [facility] Comment on above: Performed By: #### L 499.0042 #### [facility] [address] [place], [address] Erythrocyte distribution width (RBC) [Ratio] 13.2 % Normal 11.6-14.6 [facility] Comment on above: Performed By: #### L 499.0042 #### [facility] [address] [place], [address] Hematocrit (Bld) [Volume fraction] 43.0 % Normal 37-47 [facility] Comment on above: Performed By: #### L 499.0042 #### [facility] [address] [place], [address] Hemoglobin (Bld) [Mass/Vol] 13.9 g/dL Normal 12.0-15.0 [facility] Comment on above: Performed By: #### L 499.0042 #### [facility] [address] [place], [address] IG% 0.200 Normal 0.0-0.9 [facility] Comment on above: Result Comment: IG% - Immature Granulocytes (promyelocytes, myelocytes and metamyelocytes) > 1% indicates that a LEFT SHIFT is Present. Performed By: #### L 499.0042 #### [facility] [address] [place], [address] Lymphocytes/100 WBC (Bld) 40.6 % Normal 19-41 [facility] Comment on above: Performed By: #### L 499.0042 #### [facility] [address] [place], [address] MCH (RBC) [Entitic mass] 31.4 pg Normal 27.0-32.0 [facility] Comment on above: Performed By: #### L 499.0042 #### [facility] [address] [place], [address] MCHC (RBC) [Mass/Vol] 32.3 g/dL Normal 32-36 [facility] Comment on above: Performed By: #### L 499.0042 #### [facility] [address] [place], [address] MCV (RBC) [Entitic vol] 97.3 fL Normal 81-99 [facility] Comment on above: Performed By: #### L 499.0042 #### [facility] [address] [place], [address] Monocytes/100 WBC (Bld) 11.5 % High 0-[address] [facility] Comment on above: Performed By: #### L 499.0042 #### [facility] [address] [place], [address] Neutrophils/100 WBC (Bld) 43.6 % Low 47-70 [facility] Comment on above: Performed By: #### L 499.0042 #### [facility] [address] [place], [address] Nucleated RBC (Bld) [#/Vol] 0 10*3/uL Normal 0-5 [facility] Comment on above: Performed By: #### L 499.0042 #### [facility] [address] [place], [address] Platelet mean volume (Bld) [Entitic vol] 9.2 fL Normal 6.2-12.0 [facility] Comment on above: Performed By: #### L 499.0042 #### [facility] [address] [place], [address] Platelets (Bld) [#/Vol] 259 10*3/uL Normal 150-450 [facility] Comment on above: Performed By: #### L 499.0042 #### [facility] [address] [place], [address] RBC (Bld) [#/Vol] 4.42 10*6/uL Normal 4.2-5.4 [facility] Comment on above: Performed By: #### L 499.0042 #### [facility] [address] [place], [address] RDW SD 47.4 fl High 35.1-43.9 [facility] Comment on above: Performed By: #### L 499.0042 #### [facility] [address] [place], [address] WBC (Bld) [#/Vol] 6.1 10*3/uL Normal 4.4-11.0 [facility] Comment on above: Performed By: #### L 499.0042 #### [facility] [address] [place], [address] CRPon 10-31-2024 C-REACTIVE PROT < 3.00 Normal 0.0-3.0 [facility] Comment on above: Performed By: #### L 499.0042 #### [facility] [address] [place], [address] Carbon dioxide, total [Moles /volume] in Central venous bloodOrdered By: Denise Cheng on 10-31-2024 CO2 [Moles/Vol] 25.0 mmol/L 21.0-32.0 [facility] Chloride assayOrdered By: Nadir Cheng on 10-31-2024 Chloride [Moles/Vol] 107 mmol/L 98-108 [facility] Comprehensive Metabolic Prof ilon 10-31-2024 Albumin [Mass/Vol] 4.2 g/dL Normal 3.5-5.0 [facility] Comment on above: Performed By: #### L 499.0042 #### [facility] [address] [place], [address] Albumin/Globulin [Mass ratio] 1.4 {ratio} Normal 0.9-2.4 [facility] Comment on above: Performed By: #### L 499.0042 #### [facility] [address] [place], [address] ALK PHOS 65 U/L Normal 35-104 [facility] Comment on above: Performed By: #### L 499.0042 #### [facility] [address] [place], [address] ALT [Catalytic activity/Vol] 44 U/L High <=34 [facility] Comment on above: Performed By: #### L 499.0042 #### [facility] [address] [place], [address] AST [Catalytic activity/Vol] 34 U/L High <=31 [facility] Comment on above: Performed By: #### L 499.0042 #### [facility] [address] [place], [address] Bilirubin [Mass/Vol] 0.57 mg/dL Normal 0.00-1.30 [facility] Comment on above: Performed By: #### L 499.0042 #### [facility] [address] [place], [address] BUN/CRE 21.1 RATIO High 10-20 [facility] Comment on above: Performed By: #### L 499.0042 #### [facility] [address] [place], [address] Calcium [Mass/Vol] 9.5 mg/dL Normal 7.6-11.0 [facility] Comment on above: Performed By: #### L 499.0042 #### [facility] [address] [place], [address] Chloride [Moles/Vol] 107 mmol/L Normal 98-108 [facility] Comment on above: Performed By: #### L 499.0042 #### [facility] [address] [place], [address] CO2 [Moles/Vol] 25.0 mmol/L Normal 21.0-32.0 [facility] Comment on above: Performed By: #### L 499.0042 #### [facility] [address] [place], [address] Creatinine [Mass/Vol] 0.87 mg/dL Normal 0.70-1.20 [facility] Comment on above: Performed By: #### L 499.0042 #### [facility] [address] [place], [address] GAP 10 Normal 5-15 [facility] Comment on above: Performed By: #### L 499.0042 #### [facility] [address] [place], [address] GFR/1.73 sq M.predicted among non-blacks MDRD (S/P/Bld) [Vol rate/Area] 77 mL/min/{1.73_m2} Normal >60 [facility] Comment on above: Result Comment: mL/m in/1.73m2 CKD-EPI Creatinine Equation (2020) Performed By: #### L 499.0042 #### [facility] [address] [place], [address] Globulin (S) [Mass/Vol] 2.9 g/dL Normal 2.2-4.2 [facility] Comment on above: Performed By: #### L 499.0042 #### [facility] [address] [place], [address] Glucose [Mass/Vol] 77 mg/dL Normal 70-99 [facility] Comment on above: Performed By: #### L 499.0042 #### [facility] [address] [place], [address] Potassium [Moles/Vol] 4.1 mmol/L Normal 3.3-5.1 [facility] Comment on above: Performed By: #### L 499.0042 #### [facility] [address] [place], [address] Sodium [Moles/Vol] 142 mmol/L Normal 133-145 [facility] Comment on above: Performed By: #### L 499.0042 #### [facility] [address] [place], [address] T PROT 7.1 g/dL Normal 5.9-8.4 [facility] Comment on above: Performed By: #### L 499.0042 #### [facility] [address] [place], [address] Urea nitrogen [Mass/Vol] 18 mg/dL Normal 4-19 [facility] Comment on above: Performed By: #### L 499.0042 #### [facility] [address] [place], [address] Eosinophil percentageOrdered By: Denise Cheng on 10-31-2024 Eosinophils/100 WBC (Bld) 3.3 % 0-5 [facility] Erythrocyte distribution wid th ratioOrdered By: Denise Cheng on 10-31-2024 Erythrocyte distribution width (RBC) [Ratio] 13.2 % 11.6-14.6 [facility] Erythrocyte distribution wid th standard deviationOrdered By: Denise Cheng on 10-31-2024 Erythrocyte distribution width (RBC) [Ratio] 47.4 fl High 35.1-43.9 [facility] Glomerular filtration rate ( GFR) estimation/1.73 sq m using serum, plasma, or whole bOrdered By: Denise Cheng on 10-31-2024 GFR/1.73 sq M.predicted among non-blacks MDRD (S/P/Bld) [Vol rate/Area] 77 mL/min/{1.73_m2} >60 [facility] Comment on above: mL/min/1.73m2 CKD-EP I Creatinine Equation (2020) Hematocrit Auto (Bld) [Volum e fraction]Ordered By: Denise Cheng on 10-31-2024 Hematocrit (Bld) [Volume fraction] 43.0 % 37-47 [facility] Hemoglobin measurementOrdere d By: Denise Cheng on 10-31-2024 Hemoglobin (Bld) [Mass/Vol] 13.9 g/dL 12.0-15.0 [facility] Immature granulocytes/100 WB C Auto (Bld)Ordered By: Denise Cheng on 10-31-2024 Immature granulocytes/100 WBC (Bld) 0.200 % 0.0-0.9 [facility] Comment on above: IG% - Immature Granu locytes (promyelocytes, myelocytes and metamyelocytes) > 1% indicates that a LEFT SHIFT is Present. Laboratory - Chemistry and C hemistry - challengeOrdered By: Denise Cheng on 10-31-2024 AST [Catalytic activity/Vol] 34 U/L High <32 [facility] MCV (mean corpuscular volume ) determinationOrdered By: Denise Cheng on 10-31-2024 MCV (RBC) [Entitic vol] 97.3 fL 81-[address] [facility] Mean corpuscular hemoglobin (MCH) determinationOrdered By: Denise Cheng on 10-31-2024 MCH (RBC) [Entitic mass] 31.4 pg 27.0-32.0 [facility] Mean corpuscular hemoglobin concentration (MCHC) determinationOrdered By: Denise Cheng on 10-31-2024 MCHC (RBC) [Mass/Vol] 32.3 g/dL 32-36 [facility] Mean platelet volume determi nationOrdered By: Denise Cheng on 10-31-2024 Platelet mean volume (Bld) [Entitic vol] 9.2 fL 6.2-12.0 [facility] Monocyte percentageOrdered B y: Denise Cheng on 10-31-2024 Monocytes/100 WBC (Bld) 11.5 % High 0-[address] [facility] Neutrophil percentageOrdered By: Denise Cheng on 10-31-2024 Neutrophils/100 WBC (Bld) 43.6 % Low 47-70 [facility] Nucleated red blood cell per centageOrdered By: Denise Cheng on 10-31-2024 Nucleated RBC/100 WBC (Bld) [Ratio] 0 % 0-5 [facility] Platelet countOrdered By: Nadir Cheng on 10-31-2024 Platelets (Bld) [#/Vol] 259 10*3/uL 150-450 [facility] Potassium measurement (mass/ volume)Ordered By: Denise Cheng on 10-31-2024 Potassium (Unsp spec) [Mass/Vol] 4.1 mmol/L 3.3-5.1 [facility] RBC Auto (Bld) [#/Vol]Ordere d By: Denise Cheng on 10-31-2024 RBC (Bld) [#/Vol] 4.42 10*6/uL 4.2-5.4 [facility] Serum creatinine measurement (mass/volume)Ordered By: Denise Cheng on 10-31-2024 Creatinine [Mass/Vol] 0.87 mg/dL 0.70-1.20 [facility] Serum globulin measurementOr dered By: Denise Cheng on 10-31-2024 Globulin (S) [Mass/Vol] 2.9 g/dL 2.2-4.2 [facility] Serum glucose measurement (m ass/volume)Ordered By: Denise Cheng on 10-31-2024 Glucose [Mass/Vol] 77 mg/dL 70-99 [facility] Serum or plasma C reactive p rotein measurement (mass/volume)Ordered By: Denise Cheng on 10-31-2024 CRP [Mass/Vol] mg/L 0.0-3.0 [facility] Serum or plasma alanine turcios otransferase (ALT) measurementOrdered By: Denise Cheng on 10-31-2024 ALT [Catalytic activity/Vol] 44 U/L High <35 [facility] Serum or plasma albumin hannah urement (mass/volume)Ordered By: Denise Cheng on 10-31-2024 Albumin [Mass/Vol] 4.2 g/dL 3.5-5.0 [facility] Serum or plasma albumin/glob ulin mass ratioOrdered By: Denise Cheng on 10-31-2024 Albumin/Globulin [Mass ratio] 1.4 {ratio} 0.9-2.4 [facility] Serum or plasma alkaline adya sphatase measurementOrdered By: Denise Cheng on 10-31-2024 ALP [Catalytic activity/Vol] 65 U/L 35-104 [facility] Serum or plasma calcium hannah urement (mass/volume)Ordered By: Denise Cheng on 10-31-2024 Calcium [Mass/Vol] 9.5 mg/dL 7.6-11.0 [facility] Serum or plasma urea nitroge n measurement (mass/volume)Ordered By: Denise Cheng on 10-31-2024 Urea nitrogen [Mass/Vol] 18 mg/dL 4-19 [facility] Sodium levelOrdered By: Denise Cheng on 10-31-2024 Sodium [Moles/Vol] 142 mmol/L 133-145 [facility] T4 Free Directon 10-31-2024 T4 FREE DIRECT 1.10 ng/dL Normal 0.76-1.46 [facility] Comment on above: Performed By: #### L 499.0042 #### [facility] [address] [place] [address], [address] T4 freeOrdered By: Denise plasencia on 10-31-2024 Free T4 [Mass/Vol] 1.10 ng/dL 0.76-1.46 [facility] TSH DL <= 0.005 mIU/L QnOrde red By: Denise Cheng on 10-31-2024 TSH Qn 2.600 uIU/mL 0.300-4.20 0 [facility] Thyroid Stim Hormone (TSH)on 10-31-2024 TSH 2.600 uIU/mL Normal 0.300-4.20 0 [facility] Comment on above: Performed By: #### L 499.0042 #### [facility] [address] [place], [address] Total proteinOrdered By: Martha Cheng on 10-31-2024 Protein [Mass/Vol] 7.1 g/dL 5.9-8.4 [facility] White blood cell (WBC) count Ordered By: Denise Cheng on 10-31-2024 WBC (Bld) [#/Vol] 6.1 10*3/uL 4.4-11.0 [facility] Electrocardiogram reportOrde red By: Giancarlo Hammer on 10-02-2024 EKG study [facility] Cardiovascular Services [address] [place] [address] 12 Lead EKG 10/01/24 0723 MR#: [id number] Acct: [id number] Name: YUMIKO GROSSMAN Rep #:[id number] : 1965 58 From: Giancarlo Hammer MD Attending Dr: Dr. Saul Bazan, Status: REG CLI Ordering Dr: Saul Bazan DO Date: 10/01/24 Location: [facility] [place] Sex: F C Admitted: Test Reason : PREOP Blood Pressure : */* mmHG Vent. Rate : 87 BPM Atrial Rate : 87 BPM P-R Int : 136 ms QRS Dur : 68 ms QT Int : 370 ms P-R-T Axes : 62 17 56 degrees QTcB Int : 445 ms Normal sinus rhythm Normal ECG Confirmed by GIANCARLO HAMMER MD ([id number]), avid editor CANDE WARREN ([id number]) on 10/02/2024 7:55:37 AM Referred By: Saul Bazan Confirmed By: GIANCARLO HAMMER MD 10/02/24 0755 Date _ Giancarlo Hammer MD CC: Dr. Denise Cheng MD; Dr. Saul Bazan DO ~ Signed [facility] Other Phone: 12 Lead EKGon 10-01-2024 12 Lead EKG [facility] Cardiovascular Services [address] [place] [address] 12 Lead EKG 10/01/24 0723 MR#: [id number] Acct: [id number] Name: YUMIKO GROSSMAN Rep #: [id number] : 1965 58 From: Giancarlo Hammer MD Attending Dr: Dr. Saul Bazan DO Status: REG CLI Ordering Dr: Saul Bazan DO Date: 10/01/24 Location: [facility] [place] Sex: F C Admitted: Test Reason : PREOP Blood Pressure : */* mmHG Vent. Rate : 87 BPM Atrial Rate : 87 BPM P-R Int : 136 ms QRS Dur : 68 ms QT Int : 370 ms P-R-T Axes : 62 17 56 degrees QTcB Int : 445 ms Normal sinus rhythm Normal ECG Confirmed by JAQUELIN COHEN, GIANCARLO ([id number]), avid editor CANDE WARREN ([id number]) on 10/02/2024 7:55:37 AM Referred By: Saul Bazan Confirmed By: GIANCARLO HAMMER MD 10/02/24 0755 Date Giancarlo Hammer MD CC: Dr. Denise Cheng MD; Dr. Saul Bazan DO Signed Normal [facility] Breast imaging reportOrdered By: Cielo Ignacio on 09-04-2024 Study report [facility] Imaging Services [address] [place] [address] SCRN MAMM (CAD)W/DINH BILAT MR#: [id number] Acct: [id number] Name: YUMIKO GROSSMAN Rep #: [id number] : 1965 F 58 From: Stephane Ignacio DO PCP: Dr. Denise Cheng MD Status: REG CLI Study:SCRN MAMM (CAD)W/DINH BILAT Date of Exa m: 09/03/24 Exam# [id number] Ordering Dr: Nadir Cheng MD EXAM: PROCEDURE: [...] you for referring your patient to the [facility], if you have any questions, please call us at the performing site listed at the top of the report. [facility] , [facility] , [facility] . Reading Location: [facility] CC: Dr. 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 Denise Cheng MD Status: REG CLI Study: SCRN MAMM (CAD)W/DINH BILAT Date of Exam: 08/11 11/03 Exam# [id number] Ordering Dr: Denise Cheng MD EXAM: PROCEDURE: [...] [facility], if you have any questions, please call us at the performing site listed at the top of the report. [facility] , [facility] , [facility] and [facility] . Reading Location: [id number] CC: Dr. Denise Cheng MD [employer]: Signed Normal [facility] Urgent Care Visit Reporton 0 08-10-2024 Urgent Care Visit Report [facility] [address] [place] [address] OFFICE VISIT Date of Service: 08/10/24 MR#: [id number] Acct: [id number] Name: YUMIKO GROSSMAN Rep #: [id number] : 1965 Provider: ILENE Barrios Age/Sex: 58/F Location: [facility] Status: Signed Intake Vital Signs 07/28/24 12:43 [...] COUGH/ST/FEVER/CONGESTION Chief Complaint: cough, ST, fever, congest Agency Sales Director Required: No Is patient in pain?: No [...] fever, congest x 1 week without resolve. [facility] Medical History (Updated 08/10/24 @ 09:47 by [...] Complaint: cough, ST, fever, congest Details: YUMIKO GROSSMAN, is a 58 F who presents to [...] General: pa (more content not included)... Normal [facility] Urine Cultureon 07-31-2024 URC Mixed Gram Positive Organisms Rupert Count 1000-10,000 MIXC Mixed contaminants. Submit a new specimen if indicated. Normal [facility] Comment on above: Performed By: #### L 801.2600, L3300.1750 #### [facility] [address] [place], [place], [address] Urine cultureOrdered By: Dawson Cordova on 07-29-2024 Bacteria identified Cx Nom (U) Positive Abnormal [facility] Laboratory - Chemistry and C hemistry - challengeOrdered By: Adilson Cordova on 07-28-2024 Bilirubin Ql (U) Negative [facility] Glucose Ql (U) Negative [facility] Ketones Ql (U) Negative [facility] pH (U) 5.0 [pH] [facility] Specific gravity (U) [Rel density] 1.005 [facility] Urobilinogen (U) [Mass/Vol] Negative [facility] Laboratory - Hematology and Cell countsOrdered By: Adilson Cordova on 07-28-2024 Hemoglobin Ql (U) Moderate [facility] - Specimen inform ationOrdered By: Adilson Cordova on 07-28-2024 Clarity (U) Cloudy [facility] Color (U) JHONY [facility] - UrinalysisOrder ed By: Adilson [place] on 07-28-2024 Nitrite Ql (U) Negative [facility] Protein Ql (U) Trace [facility] No Panel InformationOrdered By: Adilson Cordova on 07-28-2024 Urine Leukocytes Positive [facility] Urine Non-Hemolyzed Blood Non-Hemolyzed [facility] Urgent Care Visit Reporton 0 07-28-2024 Urgent Care Visit Report [facility] [address], [address] [place], [place] [address] OFFICE VISIT Date of Service: 07/28/24 MR#: [id number] Acct: [id number] Name: YUMIKO GROSSMAN Rep #: [id number] : 1965 Provider: TAXIMETER REPAIRER-C Adilson H Miranda f Age/Sex: 58/F Location: [facility] Status: Signed Intake Vital Signs 04/03/23 07:23 [...] HPI Chief Complaint: uti symptoms Details: YUMIKO GROSSMAN, is a 58 F who presents to [...] Patino on 07/28/24 13:20 Off Ur Spec [place] 1.005 Last Edit by Sheri Patino on 07/28/24 13:20 Office Urine pH 5.0 Last Edit by Sheri Patino on 07/28/24 1 (more content not included)... Normal [facility] Urgent Care Visit Reporton 1 06-15-2023 Urgent Care Visit Report [facility] [address], [address] [place] [address] OFFICE VISIT Date of Service: 04/15/24 MR#: [id number] Acct: [id number] Name: YUMIKO GROSSMAN Rep #: [id number] : 1965 Provider: SHAHRAM Escudero Age/Sex: 58/F Location: [facility] [place] [facility] Status: Signed Intake Vital Signs 04/03/23 07:23 04/15/24 07:11 Height 5 ft 9 in BP 130/76 H Blood Pressure Location Lt brachial Position Sitting Respiration 16 Pulse 102 H Pulse Source NIBP Temp 98.2 F Temp Source Oral Pulse Oximetry (%) 94 Oxygen Delivery Method room air Intake Visit Reasons: COUGH/CONGESTION Chief Complaint: cough,congest, grn mucus, face pain Agency Sales Director Required: No Is patient in pain?: No [...] pain x 2 weeks. declines viral testing. [facility] Medical History (Updated 06/13/23 @ 13:34 by [...] cough,congest, grn mucus, face pain Details: YUMIKO GROSSMAN, is a 58 F who presents to [...] Rate: tachycardi (more content not included)... Normal [facility] PROGESTERONE 4317on 01-26-20 24 PROGESTERONE <0.1 Normal . [facility] Comment on above: Order Comment: N Result Comment: Foll icular phase 0.1 - 0.9 Luteal phase 1.8 - 23.9 Ovulation phase 0.1 - 12.0 First trimester 11.0 - 44.3 Second trimester 25.4 - 83.3 Third trimester 58.7 - 214.0 Postmenopausal 0.0 - 0.1 Performed at: - [facility] [id number] Ticker Wirer: Dominick De La Rosa PhD, Phone: [phone] Performed By: #### L 540.5078, L3588.3045 #### [facility] [address] [place], [address] CBC W/Diff, Automatedon 01-10-2023 Absolute Lymph 3.15 X10 3/uL Normal 0.83-4.51 [facility] Comment on above: Order Comment: Order Date: 01/23/24 Order Info: 785-1 - CMP Order Info: [id number] - LIPID Order Info: 3 - TSH Order Info: 3027 - T4F N Performed By: #### L 801.2600, L3300.1750 #### [facility] [address] [place], [address] Absolute Neut 5.8 X10 3/uL Normal 2.0-7.7 [facility] Comment on above: Order Comment: Order Date: 01/23/24 Order Info: 785- - CMP Order Info: - LIPID Order Info: [id number] - TSH Order Info: 7 - T4F N Performed By: #### L 801.2600, L3300.1750 #### [facility] [address] [place], [address] Basophils/100 WBC (Bld) 0.3 % Normal 0-[address] [facility] Comment on above: Order Comment: Order Date: 01/23/24 Order Info: 785- - CMP Order Info: - LIPID Order Info: 3 - TSH Order Info: 7 - T4F N Performed By: #### L 801.2600, L3300.1750 #### [facility] [address] [place], [address] Eosinophils/100 WBC (Bld) 0.3 % Normal 0-5 [facility] Comment on above: Order Comment: Order Date: 01/23/24 Order Info: 785-06 - CMP Order Info: - LIPID Order Info: 3 - TSH Order Info: 3027 - T4F N Performed By: #### L 801.2600, L3300.1750 #### [facility] [address] [place], [place], [address] Erythrocyte distribution width (RBC) [Ratio] 14.3 % Normal 11.6-14.6 [facility] Comment on above: Order Comment: Order Date: 01/23/24 Order Info: 785-1 - CMP Order Info: [id number] - LIPID Order Info: 3 - TSH Order Info: 7 - T4F N Performed By: #### L 801.2600, [id number] #### [facility] [address] [place], [place], [address] Hematocrit (Bld) [Volume fraction] 40.1 % Normal 37-47 [facility] Comment on above: Order Comment: Order Date: 01/23/24 Order Info: 785- - CMP Order Info: - LIPID Order Info: 3 - TSH Order Info: 3023-12 - T4F N Performed By: #### L 801.2600, [id number] #### [facility] [address] [place], [place], [address] Hemoglobin (Bld) [Mass/Vol] 13.0 g/dL Normal 12.0-15.0 [facility] Comment on above: Order Comment: Order Date: 01/23/24 Order Info: 785-06 - CMP Order Info: [id number] - LIPID Order Info: 3 - TSH Order Info: 3023-12 - T4F N Performed By: #### L 801.2600, [id number] #### [facility] [address] [place], [address] IG% 0.200 Normal 0.0-0.9 [facility] Comment on above: Order Comment: Order Date: 01/23/24 Order Info: 785-1 - CMP Order Info: [id number] - LIPID Order Info: 3 - TSH Order Info: 3027 - T4F N Result Comment: IG% - Immature Granulocytes (promyelocytes, myelocytes and metamyelocytes) > 1% indicates that a LEFT SHIFT is Present. Performed By: #### L 801.2600, L3300.1750 #### [facility] [address] [place], [address] Lymphocytes/100 WBC (Bld) 31.7 % Normal 19-41 [facility] Comment on above: Order Comment: Order Date: 01/23/24 Order Info: 86-1 - CMP Order Info: [id number] - LIPID Order Info: 3 - TSH Order Info: 302-7 - T4F N Performed By: #### L 801.2600, [id number] #### [facility] [address] [place], [address] MCH (RBC) [Entitic mass] 32.2 pg High 27.0-32.0 [facility] Comment on above: Order Comment: Order Date: 01/23/24 Order Info: 785-1 - CMP Order Info: - LIPID Order Info: [id number] - TSH Order Info: 3027 - T4F N Performed By: #### L 801.2600, [id number] #### [facility] [address] [place], [address] MCHC (RBC) [Mass/Vol] 32.4 g/dL Normal 32-36 [facility] Comment on above: Order Comment: Order Date: 01/23/24 Order Info: 785-1 - CMP Order Info: - LIPID Order Info: 3 - TSH Order Info: 3024-7 - T4F N Performed By: #### L 801.2600, [id number] #### [facility] [address] [place], [address] MCV (RBC) [Entitic vol] 99.3 fL High 81-[address] [facility] Comment on above: Order Comment: Order Date: 01/23/24 Order Info: 07-1 - CMP Order Info: [id number] - LIPID Order Info: 3013 - TSH Order Info: 3024-7 - T4F N Performed By: #### L 801.2600, [id number] #### [facility] [address] [place], [address] Monocytes/100 WBC (Bld) 9.5 % Normal 0-[address] [facility] Comment on above: Order Comment: Order Date: 01/23/24 Order Info: 0786-1 - CMP Order Info: [id number] - LIPID Order Info: 3 - TSH Order Info: 7 - T4F N Performed By: #### L 801.2600, [id number] #### [facility] [address] [place], [address] Neutrophils/100 WBC (Bld) 58.0 % Normal 47-70 [facility] Comment on above: Order Comment: Order Date: 01/23/24 Order Info: 0786-1 - CMP Order Info: - LIPID Order Info: [id number] - TSH Order Info: 7 - T4F N Performed By: #### L 801.2600, [id number] #### [facility] [address] [place], [address] Nucleated RBC (Bld) [#/Vol] 0 10*3/uL Normal 0-5 [facility] Comment on above: Order Comment: Order Date: 01/23/24 Order Info: 0786-1 - CMP Order Info: [id number] - LIPID Order Info: [id number] - TSH Order Info: 7 - T4F N Performed By: #### L 801.2600, [id number] #### [facility] [address] [place], [address] Platelet mean volume (Bld) [Entitic vol] 9.1 fL Normal 6.2-12.0 [facility] Comment on above: Order Comment: Order Date: 01/23/24 Order Info: 0786-1 - CMP Order Info: [id number] - LIPID Order Info: 3 - TSH Order Info: 7 - T4F N Performed By: #### L 801.2600, [id number] #### [facility] [address] [place], [address] Platelets (Bld) [#/Vol] 343 10*3/uL Normal 150-450 [facility] Comment on above: Order Comment: Order Date: 01/23/24 Order Info: 0786-1 - CMP Order Info: [id number] - LIPID Order Info: 3016-3 - TSH Order Info: 3024-7 - T4F N Performed By: #### L 801.2600, [id number] #### [facility] [address] [place], [address] RBC (Bld) [#/Vol] 4.04 10*6/uL Low 4.2-5.4 [facility] Comment on above: Order Comment: Order Date: 01/23/24 Order Info: 785-1 - CMP Order Info: [id number] - LIPID Order Info: 3 - TSH Order Info: 3024-7 - T4F N Performed By: #### L 801.2600, [id number] #### [facility] [address] [place], [address] RDW SD 51.9 fl High 35.1-43.9 [facility] Comment on above: Order Comment: Order Date: 01/23/24 Order Info: 0786- - CMP Order Info: [id number] - LIPID Order Info: 3 - TSH Order Info: 3024-7 - T4F N Performed By: #### L 801.2600, [id number] #### [facility] [address] [place], [address] WBC (Bld) [#/Vol] 9.9 10*3/uL Normal 4.4-11.0 [facility] Comment on above: Order Comment: Order Date: 01/23/24 Order Info: 0786-1 - CMP Order Info: [id number] - LIPID Order Info: [id number] - TSH Order Info: 3024-7 - T4F N Performed By: #### L 801.2600, [id number] #### [facility] [address] [place], [address] Comprehensive Metabolic Prof ilon 01-25-2024 Albumin [Mass/Vol] 3.6 g/dL Normal 3.2-5.0 [facility] Comment on above: Order Comment: Order Date: 01/23/24 Order Info: 86-1 - CMP Order Info: [id number] - LIPID Order Info: 3016-3 - TSH Order Info: 3024-7 - T4F N Performed By: #### L 801.2600, [id number] #### [facility] [address] [place], [address] Albumin/Globulin [Mass ratio] 1.0 {ratio} Normal 0.9-2.4 [facility] Comment on above: Order Comment: Order Date: 01/23/24 Order Info: 785-1 - CMP Order Info: [id number] - LIPID Order Info: 3016-3 - TSH Order Info: 3024-7 - T4F N Performed By: #### L 801.2600, [id number] #### [facility] [address] [place], [address] ALK P 62 U/L Normal 45-117 [facility] Comment on above: Order Comment: Order Date: 01/23/24 Order Info: 785-1 - CMP Order Info: [id number] - LIPID Order Info: 3016-3 - TSH Order Info: 3024-7 - T4F N Performed By: #### L 801.2600, [id number] #### [facility] [address] [place], [address] ALT [Catalytic activity/Vol] 30 U/L Normal 13-56 [facility] Comment on above: Order Comment: Order Date: 01/23/24 Order Info: 86-1 - CMP Order Info: [id number] - LIPID Order Info: 3016-3 - TSH Order Info: 3024-7 - T4F N Performed By: #### L 801.2600, [id number] #### [facility] [address] [place], [address] AST [Catalytic activity/Vol] 15 U/L Normal 15-37 [facility] Comment on above: Order Comment: Order Date: 01/23/24 Order Info: 0786-1 - CMP Order Info: [id number] - LIPID Order Info: 3016-3 - TSH Order Info: 3024-7 - T4F N Performed By: #### L 801.2600, [id number] #### [facility] [address] [place], [address] Bilirubin [Mass/Vol] 0.80 mg/dL Normal 0.20-1.00 [facility] Comment on above: Order Comment: Order Date: 01/23/24 Order Info: 785-1 - CMP Order Info: [id number] - LIPID Order Info: 3015-3 - TSH Order Info: 3024-7 - T4F N Result Comment: For patients on eltrombopag therapy, use of Dimension [place] TBIL is not recommended. Performed By: #### L 801.2600, L3300.1750 #### [facility] [address] [place], [address] BUN/CRE 28.9 RATIO High 10-20 [facility] Comment on above: Order Comment: Order Date: 01/23/24 Order Info: 785-1 - CMP Order Info: [id number] - LIPID Order Info: 3016-3 - TSH Order Info: 7 - T4F N Performed By: #### L 801.2600, [id number] #### [facility] [address] [place], [address] CA,Total 9.0 mg/dL Normal 8.5-10.1 [facility] Comment on above: Order Comment: Order Date: 01/23/24 Order Info: 0786-1 - CMP Order Info: [id number] - LIPID Order Info: 3016-3 - TSH Order Info: 3023-7 - T4F N Performed By: #### L 801.2600, [id number] #### [facility] [address] [place], [address] Chloride [Moles/Vol] 109 mmol/L High 98-107 [facility] Comment on above: Order Comment: Order Date: 01/23/24 Order Info: 86-1 - CMP Order Info: [id number] - LIPID Order Info: 6-3 - TSH Order Info: 3024-7 - T4F N Performed By: #### L 801.2600, [id number] #### [facility] [address] [place], [address] CO2 [Moles/Vol] 26.0 mmol/L Normal 21.0-32.0 [facility] Comment on above: Order Comment: Order Date: 01/23/24 Order Info: 785-1 - CMP Order Info: [id number] - LIPID Order Info: 3 - TSH Order Info: 7 - T4F N Performed By: #### L 801.2600, [id number] #### [facility] [address] [place], [address] Creatinine [Mass/Vol] 0.90 mg/dL Normal 0.55-1.02 [facility] Comment on above: Order Comment: Order Date: 01/23/24 Order Info: 86-1 - CMP Order Info: [id number] - LIPID Order Info: 3 - TSH Order Info: 302-7 - T4F N Result Comment: The validity of the calculated GFR GFRAA in patients over 70 years has not been determined. Clinical correlation is essential. Performed By: #### L 801.2600, L3300.1750 #### [facility] [address] [place], [address] EST GFR - AA 83 mL/min Normal >60 [facility] Comment on above: Order Comment: Order Date: 01/23/24 Order Info: 0786-1 - CMP Order Info: - LIPID Order Info: [id number] - TSH Order Info: 3023-12 - T4F N Result Comment: Afri can Cymro GFR Calc Performed By: #### L 801.2600, [id number] #### [facility] [address] [place], [address] GAP 7 Normal 5-15 [facility] Comment on above: Order Comment: Order Date: 01/23/24 Order Info: 785-06 - CMP Order Info: - LIPID Order Info: [id number] - TSH Order Info: 3023-12 - T4F N Performed By: #### L 801.2600, [id number] #### [facility] [address] [place], [address] GFR/1.73 sq M.predicted among non-blacks MDRD (S/P/Bld) [Vol rate/Area] 68 mL/min/{1.73_m2} Normal >60 [facility] Comment on above: Order Comment: Order Date: 01/23/24 Order Info: 785-06 - CMP Order Info: - LIPID Order Info: [id number] - TSH Order Info: 3023-12 - T4F N Result Comment: Non- GFR Calc Performed By: #### L 801.2600, [id number] #### [facility] [address] [place], [address] Globulin (S) [Mass/Vol] 3.6 g/dL Normal 2.2-4.[address] [facility] Comment on above: Order Comment: Order Date: 01/23/24 Order Info: 785-06 - CMP Order Info: - LIPID Order Info: [id number] - TSH Order Info: 7 - T4F N Performed By: #### L 801.2600, [id number] #### [facility] [address] [place], [address] Glucose [Mass/Vol] 93 mg/dL Normal 74-106 [facility] Comment on above: Order Comment: Order Date: 01/23/24 Order Info: 86-1 - CMP Order Info: [id number] - LIPID Order Info: 3 - TSH Order Info: 7 - T4F N Performed By: #### L 801.2600, [id number] #### [facility] [address] [place], [address] Potassium [Moles/Vol] 3.6 mmol/L Normal 3.5-5.1 [facility] Comment on above: Order Comment: Order Date: 01/23/24 Order Info: 785-1 - CMP Order Info: [id number] - LIPID Order Info: [id number] - TSH Order Info: 7 - T4F N Performed By: #### L 801.2600, [id number] #### [facility] [address] [place], [address] Sodium [Moles/Vol] 142 mmol/L Normal 136-145 [facility] Comment on above: Order Comment: Order Date: 01/23/24 Order Info: 785-1 - CMP Order Info: [id number] - LIPID Order Info: 3 - TSH Order Info: 7 - T4F N Performed By: #### L 801.2600, L3300.1750 #### [facility] [address] [place], [address] T PROT 7.2 g/dL Normal 6.4-8.2 [facility] Comment on above: Order Comment: Order Date: 01/23/24 Order Info: 07-1 - CMP Order Info: [id number] - LIPID Order Info: [id number] - TSH Order Info: 302-7 - T4F N Performed By: #### L 801.2600, L3300.1750 #### [facility] [address] [place], [address] Urea nitrogen [Mass/Vol] 26 mg/dL High 7-18 [facility] Comment on above: Order Comment: Order Date: 01/23/24 Order Info: 0786-1 - CMP Order Info: [id number] - LIPID Order Info: [id number] - TSH Order Info: 3023-12 T4 N Performed By: #### L 801.2600, [id number] #### [facility] [address] [place], [place], [address] Estradiolon 01-25-2024 ESTRADIOL < 11.0 Normal [facility] Comment on above: Order Comment: Order Date: 01/23/24 Order Info: 0786-1 - CMP Order Info: [id number] - LIPID Order Info: [id number] - TSH Order Info: 3023-12 T4 N Result Comment: NORM AL REFERENCE RANGES [...] Performed By: #### L 801.2600, L3300.1750 #### [facility] [address] [place], [place], [address] Hemoglobin A1con 01-25-2024 HbA1c (Bld) [Mass fraction] 5.2 % Normal 3.8-5.6 [facility] Comment on above: Order Comment: N Result Comment: Norm al < 5.7 % Prediabetic 5.7 - 6.4 % Diabetic >or= 6.5 % Please note range changes. Performed By: #### L 801.2600, L3300.1750 #### [facility] [address] [place], [place], [address] Lipid Profileon 01-25-2024 Cholesterol [Mass/Vol] 194 mg/dL Normal 200 [facility] Comment on above: Order Comment: N Result Comment: <200 mg/dL Desirable 200-240 mg/dL Borderline >240 mg/dL High Risk Performed By: #### L 801.2600, L3300.1750 #### [facility] [address] [place], [address] Cholesterol in HDL [Mass/Vol] 54 mg/dL Normal [facility] Comment on above: Order Comment: N Result Comment: The drugs N-Acetylcysteine and Metamizole may falsely depress this assay. Reference Range HDL <40 mg/dL Low HDL Cholesterol HDL >or= 60 mg/dL High HDL Cholesterol Performed By: #### L 801.2600, L3300.1750 #### [facility] [address] [place], [address] Cholesterol in LDL [Mass/Vol] 119 mg/dL Normal 0-130 [facility] Comment on above: Order Comment: N Performed By: #### L 801.2600, L3300.1750 #### [facility] [address] [place], [address] Cholesterol in VLDL [Mass/Vol] 21 mg/dL Normal 5-40 [facility] Comment on above: Order Comment: N Performed By: #### L 801.2600, [id number] #### [facility] [address] [place], [address] Triglyceride [Mass/Vol] 103 mg/dL Normal [facility] Comment on above: Order Comment: N Result Comment: The drugs N-Acetylcysteine and Metamizole may falsely depress this assay. Serum Triglycerides Reference Interval Normal <150 mg/dL Borderline high 150 - 199 mg/dL High 200 - 499 mg/dL Very High > or = 500 mg/dL Performed By: #### L 801.2600, L3300.1750 #### [facility] [address] [place], [address] T4 Free Directon 01-25-2024 T4 FREE DIRECT 0.80 ng/dL Normal 0.76-1.46 [facility] Comment on above: Order Comment: N Performed By: #### L 801.2600, L3300.1750 #### [facility] [address] [place], [place], [address] Thyroid Stim Hormone (TSH)on 01-25-2024 TSH 1.560 uIU/mL Normal 0.358-3.74 0 [facility] Comment on above: Order Comment: N Performed By: #### L 801.2600, L3300.1750 #### [facility] [address] [place], [place], [address] Basophil percentageOrdered B y: Ciera Stathopoulos on 06-09-2023 Bilirubin [Mass/Vol] 0.80 mg/dL 0.20-1.00 [facility] Comment on above: For patients on eltr ombopag therapy, use of Dimension [place] TBIL is not recommended. Chloride [Moles/Vol] 107 mmol/L 98-107 [facility] Cholesterol [Mass/Vol] 185 mg/dL <200 [facility] Comment on above: <200 mg/dL Desirable 200-240 mg/dL Borderline >240 mg/dL High Risk Glucose [Mass/Vol] 108 mg/dL 74-106 [facility] Comment on above: Fasting Glucose resu lt from 100 to 125 mg/dL suggests IMPAIRED HOMEOSTASIS per A.D.A. criteria. Potassium [Moles/Vol] 4.1 mmol/L 3.5-5.1 [facility] Protein [Mass/Vol] 7.1 g/dL 6.4-8.2 [facility] Sodium [Moles/Vol] 141 mmol/L 136-145 [facility] Triglyceride [Mass/Vol] 441 mg/dL <199 [facility] Comment on above: The drugs N-Acetylcy steine [...] 06-09-2023 ALP [Catalytic activity/Vol] 70 U/L 45-117 [facility] ALT [Catalytic activity/Vol] 44 U/L 13-56 [facility] CO2 [Moles/Vol] 28.0 mmol/L 21.0-32.0 [facility] Globulin (S) [Mass/Vol] 3.3 g/dL 2.2-4.2 [facility] Urea nitrogen/Creatinine [Mass ratio] 27.5 mg/mg 10-20 [facility] No Panel InformationOrdered By: Ciera Granados on 06-09-2023 Estimated GFR (MDRD) Amer 100 mL/min >60 [facility] Comment on above: GFR Calc Estimated GFR (MDRD) Non-Af Amer 83 mL/min >60 [facility] Comment on above: Non- GFR Calc Vitamin D 25-Hydroxy 34.9 ng/mL [facility] Comment on above: Vitamin D 25(OH) Sta tus Range Deficiency <20 ng/mL (50nmol/L) Insufficiency 20 - 30 ng/mL (50 - 75 nmol/L) Sufficiency 30 - 100 ng/mL (75 - 250 nmol/L) Toxicity >100 ng/mL (>250 nmol/L) Serum or plasma albumin hannah urement (mass/volume)Ordered By: Ciera [facility] on 06-09-2023 Albumin [Mass/Vol] 3.8 g/dL 3.2-5.0 [facility] Serum or plasma albumin/glob ulin mass ratioOrdered By: Ciera Stataurelio on 06-09-2023 Albumin/Globulin [Mass ratio] 1.2 {ratio} 0.9-2.4 [facility] Serum or plasma calcium hannah urement (mass/volume)Ordered By: Ciera Granados on 06-09-2023 Calcium [Mass/Vol] 8.7 mg/dL 8.5-10.1 [facility] Serum or plasma cholesterol in HDL measurement (mass/volume)Ordered By: Ciera [facility] on 06-09-2023 Cholesterol in HDL [Mass/Vol] 29 mg/dL >40 [facility] Comment on above: The drugs N-Acetylcy steine and Metamizole may falsely depress this assay. Reference Range HDL <40 mg/dL Low HDL Cholesterol HDL >or= 60 mg/dL High HDL Cholesterol Serum or plasma cholesterol in VLDL measurement (mass/volume)Ordered By: iCera Granados on 06-09-2023 Cholesterol in VLDL [Mass/Vol] [facility] Comment on above: Test not performed Serum or plasma creatinine m easurement (mass/volume)Ordered By: Ciera Granados on 06-09-2023 Creatinine [Mass/Vol] 0.76 mg/dL 0.55-1.02 [facility] Comment on above: The validity of the calculated GFR & GFRAA in patients over 70 years has not been determined. Clinical correlation is essential. Serum or plasma low density lipoprotein (LDL) cholesterol measurement (mass/volume)Ordered By: Ciera Granados on 06-09-2023 Cholesterol in LDL [Mass/Vol] [facility] Comment on above: Test not performed Serum or plasma urea nitroge n measurement (mass/volume)Ordered By: Ciera Granados on 06-09-2023 Urea nitrogen [Mass/Vol] 21 mg/dL 7-18 [facility] Thin prep Papanicolaou smear with manual screeningOrdered By: Cierayaritza Granados on 06-09-2023 Thin prep Papanicolaou smear with manual screening 35 U/L 15-37 [facility] Thin prep Papanicolaou smear with manual screening 6 5-15 [facility] Whole blood hemoglobin A1c/t otal hemoglobin ratio (mass fraction)Ordered By: Ciera Granados on 06-09-2023 HbA1c (Bld) [Mass fraction] 5.1 % 3.8-5.6 [facility] Comment on above: Normal < 5.7 % Predi abetic 5.7 - 6.4 % Diabetic >or= 6.5 % Please note range changes. No Panel Informationon 04-03 POC SARS CoV-2 Antigen Negative [facility] CNOVon 02-01-2023 CNOV Office Visit (PODIWS ) -- YUMIKO GROSSMAN ([id number]) 1965 F Date Time Provider Department 02/01/23 2:15 PM JARED STEWART During your visit today, we recorded the [...] toes. XR completed today to review. Jared Stewart 02/01/2023 11:01 PM Signed Initial Podiatric Office [...] for c (more content not included)... Normal [facility] XR FOOT 3V AP/LAT/OBL BILon 02-01-2023 [...] tissue swelling. IMPRESSION: Bilateral plantar calcaneal spurs [employer]: [facility] Transcribe Date/Time: Feb 04 2023 6:38P Dictated by : HECTOR DOMÍNGUEZ MD This examination was interpreted and the report reviewed and electronically signed by: HECTOR DOMÍNGUEZ MD on Feb 04 2023 6:39PM EST [id number] Normal [facility] XR FOOT GENERAL 3V AP/LAT/OB L BILATERALon 02-01-2023 [facility] Absolute lymphocyte countOrd ered By: Cecilio Lopez on 01-12-2023 Lymphocytes Auto (Unsp spec) [#/Vol] 2.95 10*3/uL 0.83-4.51 [facility] Basophil percentageOrdered B y: Cecilio Lopez on 01-12-2023 Basophils/100 WBC (Bld) 1.0 % 0-[address] [facility] Bilirubin [Mass/Vol] 1.10 mg/dL 0.20-1.00 [facility] Comment on above: For patients on eltr ombopag therapy, use of Dimension [place] TBIL is not recommended. Chloride [Moles/Vol] 106 mmol/L 98-107 [facility] Eosinophils/100 WBC (Bld) 3.6 % 0-5 [facility] Glucose [Mass/Vol] 103 mg/dL 74-106 [facility] Comment on above: Fasting Glucose resu lt from 100 to 125 mg/dL suggests IMPAIRED HOMEOSTASIS per A.D.A. criteria. LDH [Catalytic activity/Vol] 165 U/L 84-246 [facility] Neutrophils (Bld) [#/Vol] 3.3 10*3/uL 2.0-7.7 [facility] Neutrophils/100 WBC (Bld) 45.2 % 47-70 [facility] Potassium [Moles/Vol] 3.7 mmol/L 3.5-5.1 [facility] Protein [Mass/Vol] 7.2 g/dL 6.4-8.2 [facility] Sodium [Moles/Vol] 142 mmol/L 136-145 [facility] WBC (Bld) [#/Vol] 7.2 10*3/uL 4.4-11.0 [facility] Blood erythrocytes count (nu mber/volume)Ordered By: Cecilio Lopez on 01-12-2023 RBC (Bld) [#/Vol] 4.13 10*6/uL 4.2-5.4 [facility] Blood hemoglobin measurement (mass/volume)Ordered By: Cecilio Lopez on 01-12-2023 Hemoglobin (Bld) [Mass/Vol] 13.7 g/dL 12.0-15.0 [facility] Blood lymphocytes/100 leukoc ytesOrdered By: Cecilio Lopez on 01-12-2023 Lymphocytes/100 WBC (Bld) 40.8 % 19-41 [facility] Blood monocytes/100 leukocyt esOrdered By: Cecilio Lopez on 01-12-2023 Monocytes/100 WBC (Bld) 9.3 % 0-[address] [facility] Blood platelet mean volumeOr dered By: Cecilio Lopez on 01-12-2023 Platelet mean volume (Bld) [Entitic vol] 8.9 fL 6.2-12.0 [facility] Determination of erythrocyte mean corpuscular volume (MCV)Ordered By: Cecilio Lopez on 01-12-2023 MCV (RBC) [Entitic vol] 96.9 fL 81-[address] [facility] Hematocrit Auto (Bld) [Volum e fraction]Ordered By: Cecilio Lopez on 01-12-2023 Hematocrit (Bld) [Volume fraction] 40.0 % 37-47 [facility] Laboratory - Chemistry and C hemistry - challengeOrdered By: Mckitrick Hospitalkiersten Lopez on 01-12-2023 ALP [Catalytic activity/Vol] 67 U/L 45-117 [facility] ALT [Catalytic activity/Vol] 42 U/L 13-56 [facility] CO2 [Moles/Vol] 29.0 mmol/L 21.0-32.0 [facility] Globulin (S) [Mass/Vol] 3.4 g/dL 2.2-4.[address] [facility] Urea nitrogen/Creatinine [Mass ratio] 15.9 mg/mg 10-20 [facility] Laboratory - Hematology and Cell countsOrdered By: [facility] Jessica on 01-12-2023 Erythrocyte distribution width (RBC) [Entitic vol] 49.1 fL 35.1-43.9 [facility] Erythrocyte distribution width (RBC) [Ratio] 13.7 % 11.6-14.6 [facility] Immature granulocytes/100 WBC (Bld) 0.100 % 0.0-0.9 [facility] Comment on above: IG% - Immature Granu locytes (promyelocytes, myelocytes and metamyelocytes) > 1% indicates that a LEFT SHIFT is Present. MCH (RBC) [Entitic mass] 33.2 pg 27.0-32.0 [facility] Nucleated RBC/100 WBC (Bld) [Ratio] 0 % 0-5 [facility] MCHC Auto (RBC) [Mass/Vol]Or dered By: [facility]ckitrick Hospitalkiersten Lopez on 01-12-2023 MCHC (RBC) [Mass/Vol] 34.3 g/dL 32-36 [facility] No Panel InformationOrdered By: Cecilio Lopez on 01-12-2023 Estimated GFR (MDRD) Amer 85 mL/min >60 [facility] Comment on above: GFR Calc Estimated GFR (MDRD) Non-Af Amer 70 mL/min >60 [facility] Comment on above: Non- GFR Calc Platelets bldOrdered By: Damion Lopez on 01-12-2023 Platelets (Bld) [#/Vol] 296 10*3/uL 150-450 [facility] Serum or plasma albumin hannah urement (mass/volume)Ordered By: Cecilio Lopez on 01-12-2023 Albumin [Mass/Vol] 3.8 g/dL 3.2-5.0 [facility] Serum or plasma albumin/glob ulin mass ratioOrdered By: Cecilio Lopez on 01-12-2023 Albumin/Globulin [Mass ratio] 1.1 {ratio} 0.9-2.4 [facility] Serum or plasma calcium hannah urement (mass/volume)Ordered By: Cecilio Lopez on 01-12-2023 Calcium [Mass/Vol] 9.3 mg/dL 8.5-10.1 [facility] Serum or plasma creatinine m easurement (mass/volume)Ordered By: Cecilio Lopez on 01-12-2023 Creatinine [Mass/Vol] 0.88 mg/dL 0.55-1.02 [facility] Comment on above: The validity of the calculated GFR & GFRAA in patients over 70 years has not been determined. Clinical correlation is essential. Serum or plasma urea nitroge n measurement (mass/volume)Ordered By: Cecilio Lopez on 01-12-2023 Urea nitrogen [Mass/Vol] 14 mg/dL 7-18 [facility] Thin prep Papanicolaou smear with manual screeningOrdered By: Cecilio Lopez on 01-12-2023 Thin prep Papanicolaou smear with manual screening 27 U/L 15-37 [facility] Thin prep Papanicolaou smear with manual screening 7 5-15 [facility] Absolute lymphocyte countOrd ered By: Dr. Cheng on 11-09-2022 Lymphocytes Auto (Unsp spec) [#/Vol] 2.89 10*3/uL 0.83-4.51 [facility] Basophil percentageOrdered B y: Dr. Cheng on 11-09-2022 Basophils/100 WBC (Bld) 0.9 % 0-[address] [facility] Bilirubin [Mass/Vol] 0.70 mg/dL 0.20-1.00 [facility] Comment on above: For patients on eltr ombopag therapy, use of Dimension [place] TBIL is not recommended. Chloride [Moles/Vol] 107 mmol/L 98-107 [facility] Eosinophils/100 WBC (Bld) 2.8 % 0-5 [facility] Glucose [Mass/Vol] 109 mg/dL 74-106 [facility] Comment on above: Fasting Glucose resu lt from 100 to 125 mg/dL suggests IMPAIRED HOMEOSTASIS per A.D.A. criteria. Neutrophils (Bld) [#/Vol] 2.9 10*3/uL 2.0-7.7 [facility] Neutrophils/100 WBC (Bld) 42.5 % 47-70 [facility] Potassium [Moles/Vol] 4.2 mmol/L 3.5-5.1 [facility] Protein [Mass/Vol] 7.3 g/dL 6.4-8.2 [facility] Sodium [Moles/Vol] 139 mmol/L 136-145 [facility] WBC (Bld) [#/Vol] 6.8 10*3/uL 4.4-11.0 [facility] Blood erythrocytes count (nu mber/volume)Ordered By: Dr. Cheng on 11-09-2022 RBC (Bld) [#/Vol] 4.36 10*6/uL 4.2-5.4 [facility] Blood hemoglobin measurement (mass/volume)Ordered By: Dr. Cheng on 11-09-2022 Hemoglobin (Bld) [Mass/Vol] 13.8 g/dL 12.0-15.0 [facility] Blood lymphocytes/100 leukoc ytesOrdered By: Dr. Cheng on 11-09-2022 Lymphocytes/100 WBC (Bld) 42.5 % 19-41 [facility] Blood monocytes/100 leukocyt esOrdered By: Dr. Cheng on 11-09-2022 Monocytes/100 WBC (Bld) 11.2 % 0-[address] [facility] Blood platelet mean volumeOr dered By: Dr. Cheng on 11-09-2022 Platelet mean volume (Bld) [Entitic vol] 9.2 fL 6.2-12.0 [facility] Determination of erythrocyte mean corpuscular volume (MCV)Ordered By: Dr. Cheng on 11-09-2022 MCV (RBC) [Entitic vol] 95.4 fL 81-[address] [facility] Hematocrit Auto (Bld) [Volum e fraction]Ordered By: Dr. Cheng on 11-09-2022 Hematocrit (Bld) [Volume fraction] 41.6 % 37-47 [facility] Laboratory - Chemistry and C hemistry - challengeOrdered By: Dr. Cheng on 11-09-2022 Albumin [Mass/Vol] 3.9 g/dL 2.9-4.4 [facility] ALP [Catalytic activity/Vol] 68 U/L 45-117 [facility] ALT [Catalytic activity/Vol] 42 U/L 13-56 [facility] CO2 [Moles/Vol] 26.0 mmol/L 21.0-32.0 [facility] Globulin (S) [Mass/Vol] 3.3 g/dL 2.2-4.2 [facility] Urea nitrogen/Creatinine [Mass ratio] 30.0 mg/mg 10-20 [facility] Laboratory - Hematology and Cell countsOrdered By: Dr. Cheng on 11-09-2022 Erythrocyte distribution width (RBC) [Entitic vol] 44.7 fL 35.1-43.9 [facility] Erythrocyte distribution width (RBC) [Ratio] 12.8 % 11.6-14.6 [facility] Immature granulocytes/100 WBC (Bld) 0.100 % 0.0-0.9 [facility] Comment on above: IG% - Immature Granu locytes (promyelocytes, myelocytes and metamyelocytes) > 1% indicates that a LEFT SHIFT is Present. MCH (RBC) [Entitic mass] 31.7 pg 27.0-32.0 [facility] Nucleated RBC/100 WBC (Bld) [Ratio] 0 % 0-5 [facility] MCHC Auto (RBC) [Mass/Vol]Or dered By: Dr. Cheng on 11-09-2022 MCHC (RBC) [Mass/Vol] 33.2 g/dL 32-36 [facility] No Panel InformationOrdered By: Dr. Cheng on 11-09-2022 Addendum Document Comment . [facility] Comment on above: The SPE pattern appe ars unremarkable. Evidence ofmonoclonal protein is not apparent.Performed at: [place] [facility] [address] [id number] Director: Dominick De La Rosa PhD, Phone: [phone] Zmsic-7-Kpvqhzgek 0.2 g/dL 0.0-0.4 [facility] Hupvi-4-Ticqtrkzv 0.6 g/dL 0.4-1.0 [facility] Estimated GFR (MDRD) Amer 87 mL/min >60 [facility] Comment on above: GFR Calc Estimated GFR (MDRD) Non-Af Amer 72 mL/min >60 [facility] Comment on above: Non- GFR Calc Gamma Globulins 1.2 g/dL 0.4-1.8 [facility] Platelets bldOrdered By: Dr. Cheng on 11-09-2022 Platelets (Bld) [#/Vol] 312 10*3/uL 150-450 [facility] Protein Fractions Elph [Inte rp]Ordered By: Dr. Cheng on 11-09-2022 Protein Fractions [Interp] Comment . [facility] Comment on above: Protein electrophore sis scan will follow via computer,mail, or refrigeration supervisor delivery. Serum albumin to globulin ra marilyn by protein electrophoresisOrdered By: Dr. Cheng on 11-09-2022 Albumin/Globulin Elph [Mass ratio] 1.3 0.7-1.7 [facility] Serum globulin measurement ( mass/volume)Ordered By: Dr. Cheng on 11-09-2022 Globulin (S) [Mass/Vol] 3.0 g/dL 2.2-3.[address] [facility] Serum or plasma C reactive p rotein measurement (mass/volume)Ordered By: Dr. Cheng on 11-09-2022 CRP [Mass/Vol] mg/L 0.0-3.0 [facility] Comment on above: C-Reactive Protein ( CRP) provides useful information for thediagnosis, therapy and monitoring of inflammatory processesand associated diseases. For the evaluation of Relative Riskfor Cardiovascular Disease, a High Sensitivity CRP (HSCRP)should be ordered. Serum or plasma albumin hannah urement (mass/volume)Ordered By: Dr. Cheng on 11-09-2022 Albumin [Mass/Vol] 4.0 g/dL 3.2-5.0 [facility] Serum or plasma albumin/glob ulin mass ratioOrdered By: Dr. Cheng on 11-09-2022 Albumin/Globulin [Mass ratio] 1.2 {ratio} 0.9-2.4 [facility] Serum or plasma beta globuli n measurement by electrophoresis (mass/volume)Ordered By: Dr. Cheng on 11-09-2022 Beta globulin Elph [Mass/Vol] 1.1 g/dL 0.7-1.3 [facility] Serum or plasma calcium hannah urement (mass/volume)Ordered By: Dr. Cheng on 11-09-2022 Calcium [Mass/Vol] 9.4 mg/dL 8.5-10.1 [facility] Serum or plasma creatinine m easurement (mass/volume)Ordered By: Dr. Cheng on 11-09-2022 Creatinine [Mass/Vol] 0.87 mg/dL 0.55-1.02 [facility] Comment on above: The validity of the calculated GFR & GFRAA in patients over 70 years has not been determined. Clinical correlation is essential. Serum or plasma urea nitroge n measurement (mass/volume)Ordered By: Dr. Cheng on 11-09-2022 Urea nitrogen [Mass/Vol] 26 mg/dL 7-18 [facility] Thin prep Papanicolaou smear with manual screeningOrdered By: Dr. Cheng on 11-09-2022 Thin prep Papanicolaou smear with manual screening 28 U/L 15-37 [facility] Thin prep Papanicolaou smear with manual screening 6 5-15 [facility] Thin prep Papanicolaou smear with manual screening See comment [facility] Comment on above: Result: Not Observed Total protein bloodOrdered B y: Dr. Cheng on 11-09-2022 Protein [Mass/Vol] 6.9 g/dL 6.0-8.5 [facility] Absolute lymphocyte counton 01-13-2022 Lymphocytes Auto (Unsp spec) [#/Vol] 2.39 10*3/uL 0.83-4.51 [facility] Work Phone: Basophil percentageon 2021 Basophils/100 WBC (Bld) 0.7 % 0-[address] [facility] Work Phone: Bilirubin [Mass/Vol] 0.60 mg/dL 0.20-1.00 [facility] Work Phone: Comment on above: For patients on eltr ombopag therapy, use of Dimension [place] TBIL is not recommended. Chloride [Moles/Vol] 110 mmol/L 98-107 [facility] Work Phone: Eosinophils/100 WBC (Bld) 3.0 % 0-5 [facility] Work Phone: Glucose [Mass/Vol] 104 mg/dL 74-106 [facility] Work Phone: Comment on above: Fasting Glucose resu lt from 100 to 125 mg/dL suggests IMPAIRED HOMEOSTASIS per A.D.A. criteria. Neutrophils (Bld) [#/Vol] 2.3 10*3/uL 2.0-7.7 [facility] Work Phone: Neutrophils/100 WBC (Bld) 42.2 % 47-70 [facility] Work Phone: Potassium [Moles/Vol] 4.2 mmol/L 3.5-5.1 [facility] Work Phone: Protein [Mass/Vol] 6.8 g/dL 6.4-8.2 [facility] Work Phone: Sodium [Moles/Vol] 142 mmol/L 136-145 [facility] Work Phone: WBC (Bld) [#/Vol] 5.4 10*3/uL 4.4-11.0 [facility] Work Phone: Blood erythrocytes count (nu mber/volume)on 01-13-2022 RBC (Bld) [#/Vol] 3.81 10*6/uL 4.2-5.4 [facility] Work Phone: Blood hemoglobin measurement (mass/volume)on 01-13-2022 Hemoglobin (Bld) [Mass/Vol] 12.0 g/dL 12.0-15.0 [facility] Work Phone: Blood lymphocytes/100 leukoc yteson 01-13-2022 Lymphocytes/100 WBC (Bld) 44.1 % 19-41 [facility] Work Phone: Blood monocytes/100 leukocyt eson 01-13-2022 Monocytes/100 WBC (Bld) 9.8 % 0-[address] [facility] Work Phone: Blood platelet mean volumeon 01-13-2022 Platelet mean volume (Bld) [Entitic vol] 9.2 fL 6.2-12.0 [facility] Work Phone: Determination of erythrocyte mean corpuscular volume (MCV)on 01-13-2022 MCV (RBC) [Entitic vol] 96.3 fL 81-[address] [facility] Work Phone: Hematocrit Auto (Bld) [Volum e fraction]on 01-13-2022 Hematocrit (Bld) [Volume fraction] 36.7 % 37-47 [facility] Work Phone: Laboratory - Chemistry and C hemistry - challengeon 01-13-2022 ALP [Catalytic activity/Vol] 55 U/L 45-117 [facility] Work Phone: ALT [Catalytic activity/Vol] 52 U/L 13-56 [facility] Work Phone: CO2 [Moles/Vol] 30.0 mmol/L 21.0-32.0 [facility] Work Phone: Globulin (S) [Mass/Vol] 3.2 g/dL 2.2-4.[address] [facility] Work Phone: Urea nitrogen/Creatinine [Mass ratio] 24.3 mg/mg 10-20 [facility] Work Phone: Laboratory - Hematology and Cell countson 01-13-2022 Erythrocyte distribution width (RBC) [Entitic vol] 43.4 fL 35.1-43.9 [facility] Work Phone: Erythrocyte distribution width (RBC) [Ratio] 12.3 % 11.6-14.6 [facility] Work Phone: Immature granulocytes/100 WBC (Bld) 0.200 % 0.0-0.9 [facility] Work Phone: Comment on above: IG% - Immature Granu locytes (promyelocytes, myelocytes and metamyelocytes) > 1% indicates that a LEFT SHIFT is Present. MCH (RBC) [Entitic mass] 31.5 pg 27.0-32.0 [facility] Work Phone: Nucleated RBC/100 WBC (Bld) [Ratio] 0 % 0-5 [facility] Work Phone: MCHC Auto (RBC) [Mass/Vol]on 01-13-2022 MCHC (RBC) [Mass/Vol] 32.7 g/dL 32-36 [facility] Work Phone: No Panel Informationon 01-13 Estimated GFR (MDRD) Amer 87 mL/min >60 [facility] Work Phone: Comment on above: GFR Calc Estimated GFR (MDRD) Non-Af Amer 72 mL/min >60 [facility] Work Phone: Comment on above: Non- GFR Calc Platelets bldon 01-13-2022 Platelets (Bld) [#/Vol] 238 10*3/uL 150-450 [facility] Work Phone: Serum or plasma albumin hannah urement (mass/volume)on 01-13-2022 Albumin [Mass/Vol] 3.6 g/dL 3.2-5.0 [facility] Work Phone: Serum or plasma albumin/glob ulin mass ratioon 01-13-2022 Albumin/Globulin [Mass ratio] 1.1 {ratio} 0.9-2.4 [facility] Work Phone: Serum or plasma calcium hannah urement (mass/volume)on 01-13-2022 Calcium [Mass/Vol] 8.8 mg/dL 8.5-10.1 [facility] Work Phone: Serum or plasma creatinine m easurement (mass/volume)on 01-13-2022 Creatinine [Mass/Vol] 0.86 mg/dL 0.55-1.02 [facility] Work [facility]: Comment on above: The validity of the calculated GFR & GFRAA in patients over 70 years has not been determined. Clinical correlation is essential. Serum or plasma urea nitroge n measurement (mass/volume)on 01-13-2022 Urea nitrogen [Mass/Vol] 21 mg/dL 7-18 [facility] Work Phone: Thin prep Papanicolaou smear with manual screeningon 01-13-2022 Thin prep Papanicolaou smear with manual screening 30 U/L 15-37 [facility] Work Phone: Thin prep Papanicolaou smear with manual screening 2 5-15 [facility] Work Phone: Thin prep Papanicolaou smear with manual screening 158 U/L 84-246 [facility] Work Phone: Absolute lymphocyte counton 10-06-2021 Lymphocytes Auto (Unsp spec) [#/Vol] 2.55 10*3/uL 0.83-4.51 [facility] Work Phone: Basophil percentageon 2021 Basophils/100 WBC (Bld) 0.9 % 0-[address] [facility] Work Phone: Bilirubin [Mass/Vol] 0.50 mg/dL 0.20-1.00 [facility] Work Phone: Comment on above: For patients on eltr ombopag therapy, use of Dimension [place] TBIL is not recommended. Chloride [Moles/Vol] 107 mmol/L 98-107 [facility] Work Phone: Eosinophils/100 WBC (Bld) 2.3 % 0-5 [facility] Work Phone: [phone] Glucose [Mass/Vol] 99 mg/dL 74-106 [facility] Work Phone: [phone] Neutrophils (Bld) [#/Vol] 2.9 10*3/uL 2.0-7.7 [facility] Work Phone: [phone] Neutrophils/100 WBC (Bld) 45.7 % 47-70 [facility] Work Phone: [phone] Potassium [Moles/Vol] 3.7 mmol/L 3.5-5.1 [facility] Work Phone: [phone] Protein [Mass/Vol] 7.6 g/dL 6.4-8.2 [facility] Work Phone: Sodium [Moles/Vol] 141 mmol/L 136-145 [facility] Work Phone: WBC (Bld) [#/Vol] 6.4 10*3/uL 4.4-11.0 [facility] Work Phone: [phone] Blood erythrocytes count (nu mber/volume)on 10-06-2021 RBC (Bld) [#/Vol] 3.87 10*6/uL 4.2-5.4 [facility] Work Phone: [phone] Blood hemoglobin measurement (mass/volume)on 10-06-2021 Hemoglobin (Bld) [Mass/Vol] 12.3 g/dL 12.0-15.0 [facility] Work Phone: Blood lymphocytes/100 leukoc yteson 10-06-2021 Lymphocytes/100 WBC (Bld) 39.8 % 19-41 [facility] Work Phone: Blood monocytes/100 leukocyt eson 10-06-2021 Monocytes/100 WBC (Bld) 11.1 % 0-[address] [facility] Work Phone: [phone] Blood platelet mean volumeon 10-06-2021 Platelet mean volume (Bld) [Entitic vol] 8.7 fL 6.2-12.0 [facility] Work Phone: Determination of erythrocyte mean corpuscular volume (MCV)on 10-06-2021 MCV (RBC) [Entitic vol] 96.6 fL 81-[address] [facility] Work Phone: Erythrocyte sedimentation ra gary 10-06-2021 ESR (Bld) [Velocity] 3 mm/h 0-30 [facility] Work Phone: Hematocrit Auto (Bld) [Volum e fraction]on 10-06-2021 Hematocrit (Bld) [Volume fraction] 37.4 % 37-47 [facility] Work Phone: INR in Blood by Coagulation assayon 10-06-2021 INR Coag (Bld) [Relative time] 1.0 {INR} [facility] Work Phone: Laboratory - Chemistry and C hemistry - challengeon 10-06-2021 ALP [Catalytic activity/Vol] 62 U/L 45-117 [facility] Work Phone: ALT [Catalytic activity/Vol] 50 U/L 13-56 [facility] Work Phone: CO2 [Moles/Vol] 32.0 mmol/L 21.0-32.0 [facility] Work Phone: Globulin (S) [Mass/Vol] 3.6 g/dL 2.2-4.[address] [facility] Work Phone: Urea nitrogen/Creatinine [Mass ratio] 19.3 mg/mg 10-20 [facility] Work Phone: Laboratory - Coagulationon 0 10-06-2021 aPTT Coag (Bld) [Time] 26.3 s 24.1-36.2 [facility] Work Phone: PT Coag (PPP) [Time] 12.4 s 11.7-14.9 [facility] Work Phone: Laboratory - Hematology and Cell countson 10-06-2021 Erythrocyte distribution width (RBC) [Entitic vol] 46.5 fL 35.1-43.9 [facility] Work Phone: Erythrocyte distribution width (RBC) [Ratio] 13.0 % 11.6-14.6 [facility] Work Phone: Immature granulocytes/100 WBC (Bld) 0.200 % 0.0-0.9 [facility] Work Phone: Comment on above: IG% - Immature Granu locytes (promyelocytes, myelocytes and metamyelocytes) > 1% indicates that a LEFT SHIFT is Present. MCH (RBC) [Entitic mass] 31.8 pg 27.0-32.0 [facility] Work Phone: Nucleated RBC/100 WBC (Bld) [Ratio] 0 % 0-5 [facility] Work Phone: MCHC Auto (RBC) [Mass/Vol]on 10-06-2021 MCHC (RBC) [Mass/Vol] 32.9 g/dL 32-36 [facility] Work Phone: No Panel Informationon 10-06 Estimated GFR (MDRD) Amer 85 mL/min >60 [facility] Work Phone: Comment on above: GFR Calc Estimated GFR (MDRD) Non-Af Amer 70 mL/min >60 [facility] Work Phone: Comment on above: Non- GFR Calc Platelets bldon 10-06-2021 Platelets (Bld) [#/Vol] 276 10*3/uL 150-450 [facility] Work Phone: Serum or plasma albumin hannah urement (mass/volume)on 10-06-2021 Albumin [Mass/Vol] 4.0 g/dL 3.2-5.0 [facility] Work Phone: Serum or plasma albumin/glob ulin mass ratioon 10-06-2021 Albumin/Globulin [Mass ratio] 1.1 {ratio} 0.9-2.4 [facility] Work Phone: Serum or plasma calcium hannah urement (mass/volume)on 10-06-2021 Calcium [Mass/Vol] 9.0 mg/dL 8.5-10.1 [facility] Work Phone: Serum or plasma creatinine m easurement (mass/volume)on 10-06-2021 Creatinine [Mass/Vol] 0.88 mg/dL 0.55-1.02 [facility] Work Phone: Comment on above: The validity of the calculated GFR & GFRAA in patients over 70 years has not been determined. Clinical correlation is essential. Serum or plasma urea nitroge n measurement (mass/volume)on 10-06-2021 Urea nitrogen [Mass/Vol] 17 mg/dL 7-18 [facility] Work Phone: Thin prep Papanicolaou smear with manual screeningon 10-06-2021 Thin prep Papanicolaou smear with manual screening 33 U/L 15-37 [facility] Work Phone: Thin prep Papanicolaou smear with manual screening 2 5-15 [facility] Work Phone: Thin prep Papanicolaou smear with manual screening 175 U/L 84-246 [facility] Work Phone: Basophil percentageon 2021 WBC (Bld) [#/Vol] 7.7 10*3/uL 4.4-11.0 [facility] Work Phone: Blood erythrocytes count (nu mber/volume)on 07-26-2021 RBC (Bld) [#/Vol] 4.04 10*6/uL 4.2-5.4 [facility] Work Phone: Blood hemoglobin measurement (mass/volume)on 07-26-2021 Hemoglobin (Bld) [Mass/Vol] 13.0 g/dL 12.0-15.0 [facility] Work Phone: Blood platelet mean volumeon 07-26-2021 Platelet mean volume (Bld) [Entitic vol] 9.3 fL 6.2-12.0 [facility] Work Phone: Determination of erythrocyte mean corpuscular volume (MCV)on 07-26-2021 MCV (RBC) [Entitic vol] 96.5 fL 81-[address] [facility] Work Phone: Hematocrit Auto (Bld) [Volum e fraction]on 07-26-2021 Hematocrit (Bld) [Volume fraction] 39.0 % 37-47 [facility] Work Phone: Laboratory - Hematology and Cell countson 07-26-2021 Erythrocyte distribution width (RBC) [Entitic vol] 44.2 fL 35.1-43.9 [facility] Work Phone: Erythrocyte distribution width (RBC) [Ratio] 12.5 % 11.6-14.6 [facility] Work Phone: MCH (RBC) [Entitic mass] 32.2 pg 27.0-32.0 [facility] Work Phone: MCHC Auto (RBC) [Mass/Vol]on 07-26-2021 MCHC (RBC) [Mass/Vol] 33.3 g/dL 32-36 [facility] Work Phone: No Panel Informationon 07-26 Vitamin D 25-Hydroxy 26.6 ng/mL [facility] Work Phone: Comment on above: Vitamin D 25(OH) Sta tus Range Deficiency <20 ng/mL (50nmol/L) Insufficiency 20 - 30 ng/mL (50 - 75 nmol/L) Sufficiency 30 - 100 ng/mL (75 - 250 nmol/L) Toxicity >100 ng/mL (>250 nmol/L) Platelets bldon 07-26-2021 Platelets (Bld) [#/Vol] 296 10*3/uL 150-450 [facility] Work Phone: Discharge Summaryon 06-27-19 18 Discharge Summary Normal [facility]) Main OR Intraop Recordon Main OR Intraop Record Normal [facility]) CBLon 06-07-2017 CBL . MICRO - MicrobiologyPROCEDURE: [...] days.Performing Locations*1: This test was performed at: [address], [address] [place] [address] ([place] Comment on above: Performed By: #### C DUNG, OLIVER, ANEU, PRO, GFR, CMP ####[place] [address] CBL . MICRO - MicrobiologyPROCEDURE: Blood Culture [...] days.Performing Locations*1: This test was performed at: [address], [address] [place] [address] ([place]) Comment on above: Performed By: #### C DUNG, OLIVER, ANEU, PRO, GFR, CMP ####[place] [address] CGEFANon 06-05-2017 CGEFAN . MICRO - MicrobiologyPROCEDURE: [...] Report []Verified Date/Time/Personnel: 06/05/2017 08:20 ESTNormal Vaginal Ehrminia: AbsentGroup B Streptococcus: NegativeLight Escherichia coliNeisseria gonorrhoeae: [...] ResistantSulfaPerforming Locations*1: This test was performed at: [address], [address] [place] [address] ([place] Comment on above: Performed By: #### C BC, ADIFF, ANEU, PRO, GFR, CMP ####[place] [address] Depart Summaryon 06-05-2017 Depart Summary [facility] ([place] [employer] Rounding Noteon 06-05-20 17 MARKETING INTERN Rounding Note Normal [facility] ([place] [employer] Rounding Note Normal [facility]) Infectious Disease Progress Noteon 06-05-2017 Infectious Disease Progress Note Normal [facility] ([place] Inpatient Patient Summaryon 06-05-2017 Inpatient Patient Summary Normal [facility]) Infectious Disease Progress Noteon 06-04-2017 Infectious Disease Progress Note Normal [facility] ([place] Progress Note-Nurseon 2016 Progress Note-Nurse Normal [facility] ([place]) [facility] 06-04-2017 LDose Vancomycin:(trough) See eMAR Normal [facility] ([place] Comment on above: Performed By: #### C BC, ADIFF, ANEU, PRO, GFR, CMP ####[address] [address] VANCOMYCIN 12.0 mcg/mL Normal 5.0-20.0 [facility]) Comment on above: Performed By: #### C BC, ADIFF, ANEU, PRO, GFR, CMP ####[address] [address] .Auto Diffon 06-03-2017 Basophils Auto #/vol (Bld) 0.00 10 3/mcL Normal 0.00-0.27 [facility] ([place]) Comment on above: Performed By: #### C BC, ADIFF, ANEU, PRO, GFR, CMP ####[address] [address] Basophils/100 WBC Auto (Bld) 0.3 % Normal 0.0-2.5 [facility] ([place]) Comment on above: Performed By: #### C BC, ADIFF, ANEU, PRO, GFR, CMP ####[address] [address] Eosinophils 0.30 10 3/mcL Normal 0.00-0.65 [facility] ([place] Comment on above: Performed By: #### C BC, ADIFF, ANEU, PRO, GFR, CMP ####[address] [address] Eosinophils/100 leukocytes 2.5 % Normal 0.0-6.0 [facility] ([place] Comment on above: Performed By: #### C BC, ADIFF, ANEU, PRO, GFR, CMP ####[address] [address] Lymphocytes 2.00 10 3/mcL Normal 0.90-4.32 [facility] ([place] Comment on above: Performed By: #### C BC, ADIFF, ANEU, PRO, GFR, CMP ####[address] [address] Lymphocytes/100 leukocytes 16.1 % Low 20.0-40.0 [facility] ([place] Comment on above: Performed By: #### C BC, ADIFF, ANEU, PRO, GFR, CMP ####[address] [address] Monocytes 0.70 10 3/mcL Normal 0.09-1.40 [facility] ([place]) Comment on above: Performed By: #### C BC, ADIFF, ANEU, PRO, GFR, CMP ####[address] [address] Monocytes/100 leukocytes 5.8 % Normal 2.0-13.0 [facility] ([place]) Comment on above: Performed By: #### C BC, ADIFF, ANEU, PRO, GFR, CMP ####[address] [address] Neutrophils/100 WBC Auto (Bld) 75.3 % High 50.0-75.0 [facility] ([place]) Comment on above: Performed By: #### C BC, ADIFF, ANEU, PRO, GFR, CMP ####[address] [address] .GFRon 06-03-2017 eGFR (non-black) mL/min/{1.73_m2} Normal [facility] ([place]) Comment on above: Result Comment: GFR Population [...] C BC, ADIFF, ANEU, PRO, GFR, CMP ####[place] [address] .NEUABSon 06-03-2017 Neutrophils 9.40 10 3/mcL High 2.25-8.10 [facility] ([place]) Comment on above: Performed By: #### C BC, ADIFF, ANEU, PRO, GFR, CMP ####[place] [address] CBCon 06-03-2017 Erythrocyte distribution width Auto Ratio (RBC) 12.4 % Normal 11.5-15.5 [facility] ([place]) Comment on above: Performed By: #### C BC, ADIFF, ANEU, PRO, GFR, CMP ####[place] [address] Erythrocytes (RBC) 3.54 10 6/mcL Low 4.10-5.30 [facility] ([place]) Comment on above: Performed By: #### C BC, ADIFF, ANEU, PRO, GFR, CMP ####[place] [address] Hematocrit (HCT) 32.5 % Low 34.0-46.0 [facility] ([place]) Comment on above: Performed By: #### C BC, ADIFF, ANEU, PRO, GFR, CMP ####[place] [address] Hemoglobin mass conc (Bld) 11.2 G/dL Low 12.0-16.0 [facility] ([place]) Comment on above: Performed By: #### C BC, ADIFF, ANEU, PRO, GFR, CMP ####[place] [address] MCH 31.6 pg Normal 27.0-33.0 [facility] ([place]) Comment on above: Performed By: #### C BC, ADIFF, ANEU, PRO, GFR, CMP ####[place] [address] MCHC mass conc (RBC) 34.5 G/dL Normal 32.0-36.0 [facility] ([place]) Comment on above: Performed By: #### C BC, ADIFF, ANEU, PRO, GFR, CMP ####[place] [address] MCV 91.6 fL Normal 80.0-99.0 [facility] ([place]) Comment on above: Performed By: #### C BC, ADIFF, ANEU, PRO, GFR, CMP ####[place] [address] Platelet mean volume (PMV) 6.9 fL Normal 6.6-10.5 [facility] ([place]) Comment on above: Performed By: #### C BC, ADIFF, ANEU, PRO, GFR, CMP ####[place] [address] Platelets 339 10 3/mcL Normal 150-450 [facility] ([place]) Comment on above: Performed By: #### C BC, ADIFF, ANEU, PRO, GFR, CMP ####[place] [address] WBC (Leukocytes) 12.40 10 3/mcL High 4.50-10.80 [facility] ([place]) Comment on above: Performed By: #### C BC, ADIFF, ANEU, PRO, GFR, CMP ####[address] [address] CMPon 06-03-2017 Alanine aminotransferase (ALT) 24 U/L Normal 10-49 [facility] ([place]) Comment on above: Performed By: #### C BC, ADIFF, ANEU, PRO, GFR, CMP ####[place] [address] Albumin/Globulin Ratio 1.0 {ratio} Normal 0.9-1.6 [facility] ([place]) Comment on above: Performed By: #### C BC, ADIFF, ANEU, PRO, GFR, CMP ####[place] [address] Alk Phos 62 U/L Normal 38-126 [facility] ([place] Comment on above: Performed By: #### C BC, ADIFF, ANEU, PRO, GFR, CMP ####[place] [address] Bili Total 0.6 mg/dL Normal 0.2-1.2 [facility] ([place]) Comment on above: Performed By: #### C BC, ADIFF, ANEU, PRO, GFR, CMP ####[place] [address] BUN/Creatinine Ratio 8.7 ratio Low 10.0-22.0 [facility] ([place]) Comment on above: Performed By: #### C BC, ADIFF, ANEU, PRO, GFR, CMP ####[place] [address] Creatinine 0.69 mg/dL Normal 0.50-1.20 [facility] ([place] Comment on above: Performed By: #### C BC, ADIFF, ANEU, PRO, GFR, CMP ####[place] [address] Globulin 3.1 G/dL Normal 1.5-3.8 [facility] ([place]) Comment on above: Performed By: #### C BC, ADIFF, ANEU, PRO, GFR, CMP ####[place] [address] Protein 6.2 G/dL Normal 6.0-8.5 [facility] ([place] Comment on above: Performed By: #### C BC, ADIFF, ANEU, PRO, GFR, CMP ####[place] [address] Albumin 3.1 G/dL Low 3.2-4.8 [facility] ([place]) Comment on above: Performed By: #### C BC, ADIFF, ANEU, PRO, GFR, CMP ####[place] [address] Aspartate aminotransferase (AST) 9 U/L Normal 8-34 [facility] ([place] Comment on above: Performed By: #### C BC, ADIFF, ANEU, PRO, GFR, CMP ####[place] [address] Calcium 8.2 mg/dL Low 8.4-10.1 [facility] ([place] Comment on above: Performed By: #### C BC, ADIFF, ANEU, PRO, GFR, CMP ####[address] [address] Chloride 108 mmol/L Normal 98-110 [facility] ([place] Comment on above: Performed By: #### C BC, ADIFF, ANEU, PRO, GFR, CMP ####[place] [address] CO2 22 mmol/L Normal 22-32 [facility] ([place]) Comment on above: Performed By: #### C BC, ADIFF, ANEU, PRO, GFR, CMP ####[place] [address] Electrolyte Balance 8.0 mEq/L Normal 4.0-15.0 [facility] ([place]) Comment on above: Performed By: #### C BC, ADIFF, ANEU, PRO, GFR, CMP ####[place] [address] Glucose mass conc 130 mg/dL High 70-110 [facility] ([place] Comment on above: Performed By: #### C BC, ADIFF, ANEU, PRO, GFR, CMP ####[place] [address] Potassium molar conc 4.0 mmol/L Normal 3.5-5.0 [facility] ([place]) Comment on above: Performed By: #### C BC, ADIFF, ANEU, PRO, GFR, CMP ####[place] [address] Sodium 138 mmol/L Normal 136-145 [facility] ([place] Comment on above: Performed By: #### C BC, ADIFF, ANEU, PRO, GFR, CMP ####[place] [address] Urea nitrogen 6.0 mg/dL Low 8.0-22.0 [facility] ([place] Comment on above: Performed By: #### C BC, ADIFF, ANEU, PRO, GFR, CMP ####[address] [address] [employer] Rounding Noteon 06-03-20 17 MARKETING INTERN Rounding Note Normal [facility] ([place]) Infectious Disease Progress Noteon 06-03-2017 Infectious Disease Progress Note Normal [facility] ([place]) Progress Note-Nurseon 2016 Progress Note-Nurse Normal [facility] ([place]) .Auto Diffon 06-02-2017 Basophils Auto #/vol (Bld) 0.00 10 3/mcL Normal 0.00-0.27 [facility] ([place] Comment on above: Performed By: #### C BC, ADIFF, ANEU, PRO, GFR, CMP ####[address] [address] Basophils/100 WBC Auto (Bld) 0.1 % Normal 0.0-2.5 [facility] ([place]) Comment on above: Performed By: #### C BC, ADIFF, ANEU, PRO, GFR, CMP ####[address] [address] Eosinophils 0.10 10 3/mcL Normal 0.00-0.65 [facility] ([place] Comment on above: Performed By: #### C BC, ADIFF, ANEU, PRO, GFR, CMP ####[address] [address] Eosinophils/100 leukocytes 0.8 % Normal 0.0-6.0 [facility] ([place] Comment on above: Performed By: #### C BC, ADIFF, ANEU, PRO, GFR, CMP ####[address] [address] Lymphocytes 2.80 10 3/mcL Normal 0.90-4.32 [facility] ([place] Comment on above: Performed By: #### C BC, ADIFF, ANEU, PRO, GFR, CMP ####[address] [address] Lymphocytes/100 leukocytes 17.5 % Low 20.0-40.0 [facility] ([place] Comment on above: Performed By: #### C BC, ADIFF, ANEU, PRO, GFR, CMP ####[address] [address] Monocytes 1.50 10 3/mcL High 0.09-1.40 [facility] ([place] Comment on above: Performed By: #### C BC, ADIFF, ANEU, PRO, GFR, CMP ####[address] [address] Monocytes/100 leukocytes 9.5 % Normal 2.0-13.0 [facility] ([place]) Comment on above: Performed By: #### C BC, ADIFF, ANEU, PRO, GFR, CMP ####[address] [address] Neutrophils/100 WBC Auto (Bld) 72.1 % Normal 50.0-75.0 [facility] ([place]) Comment on above: Performed By: #### C BC, ADIFF, ANEU, PRO, GFR, CMP ####[address] [address] .GFRon 06-02-2017 eGFR (non-black) mL/min/{1.73_m2} Normal [facility] ([place]) Comment on above: Result Comment: GFR Population [...] C BC, ADIFF, ANEU, PRO, GFR, CMP ####[address] [address] .NEUABSon 06-02-2017 Neutrophils 11.70 10 3/mcL High 2.25-8.10 [facility] ([place] Comment on above: Performed By: #### C BC, ADIFF, ANEU, PRO, GFR, CMP ####[place] [address] CBCon 06-02-2017 Erythrocyte distribution width Auto Ratio (RBC) 12.6 % Normal 11.5-15.5 [facility] ([place]) Comment on above: Performed By: #### C BC, ADIFF, ANEU, PRO, GFR, CMP ####[place] [address] Erythrocytes (RBC) 3.69 10 6/mcL Low 4.10-5.30 [facility] ([place]) Comment on above: Performed By: #### C BC, ADIFF, ANEU, PRO, GFR, CMP ####[place] [address] Hematocrit (HCT) 34.4 % Normal 34.0-46.0 [facility] ([place] Comment on above: Performed By: #### C BC, ADIFF, ANEU, PRO, GFR, CMP ####[place] [address] Hemoglobin mass conc (Bld) 11.6 G/dL Low 12.0-16.0 [facility] ([place] Comment on above: Performed By: #### C BC, ADIFF, ANEU, PRO, GFR, CMP ####[place] [address] MCH 31.5 pg Normal 27.0-33.0 [facility] ([place] Comment on above: Performed By: #### C BC, ADIFF, ANEU, PRO, GFR, CMP ####[place] [address] MCHC mass conc (RBC) 33.9 G/dL Normal 32.0-36.0 [facility] ([place]) Comment on above: Performed By: #### C BC, ADIFF, ANEU, PRO, GFR, CMP ####[place] [address] MCV 93.0 fL Normal 80.0-99.0 [facility] ([place] Comment on above: Performed By: #### C BC, ADIFF, ANEU, PRO, GFR, CMP ####[place] [address] Platelet mean volume (PMV) 7.0 fL Normal 6.6-10.5 [facility] ([place]) Comment on above: Performed By: #### C BC, ADIFF, ANEU, PRO, GFR, CMP ####[place] [address] Platelets 370 10 3/mcL Normal 150-450 [facility] ([place] Comment on above: Performed By: #### C BC, ADIFF, ANEU, PRO, GFR, CMP ####[place] [address] WBC (Leukocytes) 16.30 10 3/mcL High 4.50-10.80 [facility] ([place]) Comment on above: Performed By: #### C BC, ADIFF, ANEU, PRO, GFR, CMP ####[place] [address] CMPon 06-02-2017 Albumin/Globulin Ratio 1.0 {ratio} Normal 0.9-1.6 [facility] ([place]) Comment on above: Performed By: #### C BC, ADIFF, ANEU, PRO, GFR, CMP ####[place] [address] Alk Phos 61 U/L Normal 38-126 [facility] ([place] Comment on above: Performed By: #### C BC, ADIFF, ANEU, PRO, GFR, CMP ####[place] [address] Bili Total 0.7 mg/dL Normal 0.2-1.2 [facility] ([place] Comment on above: Performed By: #### C BC, ADIFF, ANEU, PRO, GFR, CMP ####[place] [address] Globulin 3.2 G/dL Normal 1.5-3.8 [facility] ([place] Comment on above: Performed By: #### C BC, ADIFF, ANEU, PRO, GFR, CMP ####[place] [address] Protein 6.3 G/dL Normal 6.0-8.5 [facility] ([place] Comment on above: Performed By: #### C BC, ADIFF, ANEU, PRO, GFR, CMP ####[place] [address] Alanine aminotransferase (ALT) 26 U/L Normal 10-49 [facility] ([place] Comment on above: Performed By: #### C BC, ADIFF, ANEU, PRO, GFR, CMP ####[place] [address] Albumin 3.1 G/dL Low 3.2-4.8 [facility] ([place]) Comment on above: Performed By: #### C BC, ADIFF, ANEU, PRO, GFR, CMP ####[place] [address] Aspartate aminotransferase (AST) 13 U/L Normal 8-34 [facility] ([place] Comment on above: Performed By: #### C BC, ADIFF, ANEU, PRO, GFR, CMP ####[place] [address] BUN/Creatinine Ratio 13.6 ratio Normal 10.0-22.0 [facility] ([place]) Comment on above: Performed By: #### C BC, ADIFF, ANEU, PRO, GFR, CMP ####[place] [address] Calcium 8.0 mg/dL Low 8.4-10.1 [facility] ([place]) Comment on above: Performed By: #### C BC, ADIFF, ANEU, PRO, GFR, CMP ####[place] [address] Chloride 111 mmol/L High 98-110 [facility] ([place] Comment on above: Performed By: #### C BC, ADIFF, ANEU, PRO, GFR, CMP ####[place] [address] CO2 22 mmol/L Normal 22-32 [facility] ([place] Comment on above: Performed By: #### C BC, ADIFF, ANEU, PRO, GFR, CMP ####[place] [address] Creatinine 0.81 mg/dL Normal 0.50-1.20 [facility] ([place] Comment on above: Performed By: #### C BC, ADIFF, ANEU, PRO, GFR, CMP ####[place] [address] Electrolyte Balance 10.0 mEq/L Normal 4.0-15.0 [facility] ([place]) Comment on above: Performed By: #### C BC, ADIFF, ANEU, PRO, GFR, CMP ####[place] [address] Glucose mass conc 101 mg/dL Normal 70-110 [facility] ([place] Comment on above: Performed By: #### C BC, ADIFF, ANEU, PRO, GFR, CMP ####[place] [address] Potassium molar conc 3.9 mmol/L Normal 3.5-5.0 [facility] ([place]) Comment on above: Performed By: #### C BC, ADIFF, ANEU, PRO, GFR, CMP ####[place] [address] Sodium 143 mmol/L Normal 136-145 [facility] ([place] Comment on above: Performed By: #### C BC, ADIFF, ANEU, PRO, GFR, CMP ####[place] [address] Urea nitrogen 11.0 mg/dL Normal 8.0-22.0 [facility] ([place] Comment on above: Performed By: #### C BC, ADIFF, ANEU, PRO, GFR, CMP ####[place] [address] CT ABDOMEN/PELVIS W/CONTRAST on 06-02-2017 CT ABDOMEN/PELVIS [...] PM Sign Date: 06/02/2017 12:30:30 PM Normal [facility] ([place] History and Physicalon 06-02 History and Physical Normal [facility] ([place]) Infectious Disease Consultat ionon 06-02-2017 Infectious Disease Consultation Normal [facility] ([place]) LACon 06-02-2017 Lactic Acid Lvl 1.4 mmol/L Normal 0.2-2.0 [facility]) Comment on above: Performed By: #### C BC, ADIFF, ANEU, PRO, GFR, CMP ####[address] [address] PROon 06-02-2017 INR Coag RelTime (PPP) 1.1 {INR} Normal [facility]) Comment on above: Result Comment: [employer] (CHEST, 1992, [id number])recommended therapeutic range for oral anticoagulant therapy is:LOW RISK: Prophylaxis of venous thrombosis INR: 2.0-3.0 Treatment of pulmonary embolism 2.0-3.0 Prevention of systemic embolism 2.0-3.0HIGH RISK: Mechanical prosthetic valves 2.5-3.5 Performed By: #### C DUNG, DESIFF, ANEU, PRO, GFR, CMP ####[address] [address] Prothrombin time (PT) Coag time (PPP) 12.9 s Normal 9.0-14.5 [facility]) Comment on above: Result Comment: Effe ctive 12/25/07, Protime results may be affected by some antibiotics (i.e. Ciprofloxacin, Azithromycin, Bactrim) which may potentiate the action of oral anticoagulants, with further increases in Protime/INR. Performed By: #### C DUNG, OLIVER, ANEU, PRO, GFR, CMP ####[address] [address] Depart Summaryon 05-26-2017 Depart Summary Normal [facility]) Discharge Summaryon 05-26-20 17 Discharge Summary Normal [facility]) MARKETING INTERN Rounding Noteon 05-26-20 17 MARKETING INTERN Rounding Note Normal [facility]) Inpatient Patient Summaryon 05-26-2017 Inpatient Patient Summary Normal [facility]) .Auto Diffon 05-25-2017 Basophils Auto #/vol (Bld) 0.00 10 3/mcL Normal 0.00-0.27 [facility]) Comment on above: Performed By: #### C BC, ADIFF, ANEU, PRO, GFR, CMP ####[address] [address] Basophils/100 WBC Auto (Bld) 0.1 % Normal 0.0-2.5 [facility] ([place] Comment on above: Performed By: #### C BC, ADIFF, ANEU, PRO, GFR, CMP ####[address] [address] Eosinophils 0.00 10 3/mcL Normal 0.00-0.65 [facility] ([place] Comment on above: Performed By: #### C BC, ADIFF, ANEU, PRO, GFR, CMP ####[address] [address] Eosinophils/100 leukocytes 0.0 % Normal 0.0-6.0 [facility] ([place] Comment on above: Performed By: #### C BC, ADIFF, ANEU, PRO, GFR, CMP ####[address] [address] Lymphocytes 1.60 10 3/mcL Normal 0.90-4.32 [facility] ([place] Comment on above: Performed By: #### C BC, ADIFF, ANEU, PRO, GFR, CMP ####[address] [address] Lymphocytes/100 leukocytes 12.5 % Low 20.0-40.0 [facility] ([place] Comment on above: Performed By: #### C BC, ADIFF, ANEU, PRO, GFR, CMP ####[address] [address] Monocytes 1.50 10 3/mcL High 0.09-1.40 [facility] ([place] Comment on above: Performed By: #### C BC, ADIFF, ANEU, PRO, GFR, CMP ####[address] [address] Monocytes/100 leukocytes 11.6 % Normal 2.0-13.0 [facility] ([place] Comment on above: Performed By: #### C BC, ADIFF, ANEU, PRO, GFR, CMP ####[address] [address] Neutrophils/100 WBC Auto (Bld) 75.8 % High 50.0-75.0 [facility] ([place] Comment on above: Performed By: #### C BC, ADIFF, ANEU, PRO, GFR, CMP ####[address] [address] [address] .GFRon 05-25-2017 eGFR (non-black) mL/min/{1.73_m2} Normal [facility] ([place]) Comment on above: Result Comment: GFR Population [...] C BC, ADIFF, ANEU, PRO, GFR, CMP ####[address] [address] eGFR (non-black) mL/min/{1.73_m2} Normal [facility] ([place]) Comment on above: Result Comment: GFR Population [...] C BC, ADIFF, ANEU, PRO, GFR, CMP ####[place] [address] .NEUABSon 05-25-2017 Neutrophils 9.90 10 3/mcL High 2.25-8.10 [facility] ([place]) Comment on above: Performed By: #### C BC, ADIFF, ANEU, PRO, GFR, CMP ####[place] [address] BMPon 05-25-2017 BUN/Creatinine Ratio 10.0 ratio Normal 10.0-22.0 [facility] ([place]) Comment on above: Performed By: #### C BC, ADIFF, ANEU, PRO, GFR, CMP ####[place] [address] Creatinine 0.80 mg/dL Normal 0.50-1.20 [facility] ([place] Comment on above: Performed By: #### C BC, ADIFF, ANEU, PRO, GFR, CMP ####[place] [address] Calcium 8.4 mg/dL Normal 8.4-10.1 [facility] ([place] Comment on above: Performed By: #### C BC, ADIFF, ANEU, PRO, GFR, CMP ####[place] [address] Chloride 110 mmol/L Normal 98-110 [facility] ([place] Comment on above: Performed By: #### C BC, ADIFF, ANEU, PRO, GFR, CMP ####[place] [address] CO2 25 mmol/L Normal 22-32 [facility] ([place] Comment on above: Performed By: #### C BC, ADIFF, ANEU, PRO, GFR, CMP ####[place] [address] Electrolyte Balance 5.0 mEq/L Normal 4.0-15.0 [facility] ([place]) Comment on above: Performed By: #### C BC, ADIFF, ANEU, PRO, GFR, CMP ####[place] [address] Glucose mass conc 135 mg/dL High 70-110 [facility] ([place] Comment on above: Performed By: #### C BC, ADIFF, ANEU, PRO, GFR, CMP ####[place] [address] Potassium molar conc 4.2 mmol/L Normal 3.5-5.0 [facility] ([place] Comment on above: Performed By: #### C BC, ADIFF, ANEU, PRO, GFR, CMP ####[place] [address] Sodium 140 mmol/L Normal 136-145 [facility] ([place] Comment on above: Performed By: #### C BC, ADIFF, ANEU, PRO, GFR, CMP ####[place] [address] Urea nitrogen 8.0 mg/dL Normal 8.0-22.0 [facility] ([place] Comment on above: Performed By: #### C BC, ADIFF, ANEU, PRO, GFR, CMP ####[place] [address] CBCon 05-25-2017 Erythrocyte distribution width Auto Ratio (RBC) 13.0 % Normal 11.5-15.5 [facility] ([place] Comment on above: Performed By: #### C BC, ADIFF, ANEU, PRO, GFR, CMP ####[place] [address] Erythrocytes (RBC) 3.80 10 6/mcL Low 4.10-5.30 [facility] ([place]) Comment on above: Performed By: #### C BC, ADIFF, ANEU, PRO, GFR, CMP ####[place] [address] Hematocrit (HCT) 35.7 % Normal 34.0-46.0 [facility] ([place] Comment on above: Performed By: #### C BC, ADIFF, ANEU, PRO, GFR, CMP ####[place] [address] Hemoglobin mass conc (Bld) 12.2 G/dL Normal 12.0-16.0 [facility] ([place]) Comment on above: Performed By: #### C BC, ADIFF, ANEU, PRO, GFR, CMP ####[place] [address] MCH 32.2 pg Normal 27.0-33.0 [facility] ([place] Comment on above: Performed By: #### C BC, ADIFF, ANEU, PRO, GFR, CMP ####[place] [address] MCHC mass conc (RBC) 34.2 G/dL Normal 32.0-36.0 [facility] ([place] Comment on above: Performed By: #### C BC, ADIFF, ANEU, PRO, GFR, CMP ####[place] [address] MCV 94.0 fL Normal 80.0-99.0 [facility] ([place] Comment on above: Performed By: #### C BC, ADIFF, ANEU, PRO, GFR, CMP ####[place] [address] Platelet mean volume (PMV) 7.2 fL Normal 6.6-10.5 [facility] ([place]) Comment on above: Performed By: #### C BC, ADIFF, ANEU, PRO, GFR, CMP ####[place] [address] Platelets 253 10 3/mcL Normal 150-450 [facility] ([place] Comment on above: Performed By: #### C BC, ADIFF, ANEU, PRO, GFR, CMP ####[place] [address] WBC (Leukocytes) 13.00 10 3/mcL High 4.50-10.80 [facility] ([place]) Comment on above: Performed By: #### C BC, ADIFF, ANEU, PRO, GFR, CMP ####[place] [address] Final Surgical Pathology Rep [facility] 05-25-2017 Final Surgical Pathology Report . Pathology ReportsAccession: Collected Date/Time: Received Date/Time: Pathologist:[id number] 05/24/2017 08:52 EST 05/24/2017 10:31 EST DO [...] cm in thickness. The underlying myometrium is mof-fwpp-boww, and measures up to 2.1 cm in thickness. There are a few intramural nodules measuring up to 0.4 cm in greatest dimension. All show regan-white whorled cut surfaces. RS -2Block Summary1 -2 cervix and endomyometrium intramural nodules, anterior and posterior cohen respectivelyDictated by JASSON OMALLEY ([facility])MICROSCOPIC DESCRIPTION:Slides reviewed. Pathology ReportsAccession: Collected Date/Time: Received Date/Time: Pathologist:[id number] 05/24/2017 08:52 EST 05/24/2017 10:31 DO NEEMA CHOWDARY EElectronically Signed byPathology Report verified by [facility] CenterElectronically signed by NEEMA LOREDO DOSign out Date: 05/25/2017 12:48Performing Lab: [address] ([place]) Comment on above: Performed By: #### C BC, ADIFF, ANEU, PRO, GFR, CMP ####[place] [address] MARKETING INTERN Rounding Noteon 05-25-20 17 MARKETING INTERN Rounding Note [facility] ([place]) Non-Manager File Cytology Reporton Non-Manager File Cytology Report . Pathology ReportsAccession: Collected Date/Time: Received Date/Time: Pathologist:[id number] 05/24/2017 08:47 EST 05/24/2017 12:21 EST MD RADHA TRENT Non-Manager File Cytology ReportCLINICAL INFORMATION:PELVIC MASSDIAGNOSIS:NEGATIVE FOR MALIGNANCYCOMMENT:SCANT CELLULARITYSPECIMEN:PELVIC WASHINGGROSS DESCRIPTION:# of Blocks: 1# of Monolayers: 1Volume (ml) 20 Color: FRESH BLOODY FLUIDElectronically Signed byPathology report verified by [facility] Hospitalcreened by: TAMMY RMElectronically signed by RADHA TRENT MDSign-Out Date: 05/25/2017 08:54Performing Lab: [address] ([place]) Comment on above: Performed By: #### C BC, ADIFF, ANEU, PRO, GFR, CMP ####[address] [address] Operative Noteon 05-24-2017 Operative Note Normal [facility] ([place]) Procedure Noteon 05-24-2017 Procedure Note Normal [facility] ([place]) History and Physical Pre-Opo n 05-23-2017 History and Physical Pre-Op Normal [facility] ([place]) Main Pretest Recordon 2016 Main Pretest Record Normal [facility]) .Auto Diffon 05-17-2017 Basophils Auto #/vol (Bld) 0.00 10 3/mcL Normal 0.00-0.27 [facility] ([place]) Comment on above: Performed By: #### C BC, ADIFF, ANEU, PRO, GFR, CMP ####[address] [address] Basophils/100 WBC Auto (Bld) 0.7 % Normal 0.0-2.5 [facility] ([place]) Comment on above: Performed By: #### C BC, ADIFF, ANEU, PRO, GFR, CMP ####[address] [address] Eosinophils 0.10 10 3/mcL Normal 0.00-0.65 [facility] ([place]) Comment on above: Performed By: #### C BC, ADIFF, ANEU, PRO, GFR, CMP ####[address] [address] Eosinophils/100 leukocytes 2.5 % Normal 0.0-6.0 [facility] ([place] Comment on above: Performed By: #### C BC, ADIFF, ANEU, PRO, GFR, CMP ####[address] [address] Lymphocytes 2.40 10 3/mcL Normal 0.90-4.32 [facility] ([place]) Comment on above: Performed By: #### C BC, ADIFF, ANEU, PRO, GFR, CMP ####[address] [address] Lymphocytes/100 leukocytes 43.3 % High 20.0-40.0 [facility] ([place]) Comment on above: Performed By: #### C BC, ADIFF, ANEU, PRO, GFR, CMP ####[address] [address] Monocytes 0.50 10 3/mcL Normal 0.09-1.40 [facility] ([place]) Comment on above: Performed By: #### C BC, ADIFF, ANEU, PRO, GFR, CMP ####[address] [address] Monocytes/100 leukocytes 9.4 % Normal 2.0-13.0 [facility] ([place] Comment on above: Performed By: #### C BC, ADIFF, ANEU, PRO, GFR, CMP ####[address] [address] Neutrophils/100 WBC Auto (Bld) 44.1 % Low 50.0-75.0 [facility] ([place] Comment on above: Performed By: #### C BC, ADIFF, ANEU, PRO, GFR, CMP ####[address] [address] .GFRon 05-17-2017 eGFR (non-black) mL/min/{1.73_m2} Normal [facility] ([place]) Comment on above: Result Comment: GFR Population [...] C BC, ADIFF, ANEU, PRO, GFR, CMP ####[address] [address] .NEUABSon 05-17-2017 Neutrophils 2.40 10 3/mcL Normal 2.25-8.10 [facility] ([place]) Comment on above: Performed By: #### C BC, ADIFF, ANEU, PRO, GFR, CMP ####[place] [address] CBCon 05-17-2017 Erythrocyte distribution width Auto Ratio (RBC) 12.8 % Normal 11.5-15.5 [facility] ([place]) Comment on above: Performed By: #### C BC, ADIFF, ANEU, PRO, GFR, CMP ####[place] [address] Erythrocytes (RBC) 3.96 10 6/mcL Low 4.10-5.30 [facility] ([place]) Comment on above: Performed By: #### C BC, ADIFF, ANEU, PRO, GFR, CMP ####[place] [address] Hematocrit (HCT) 37.3 % Normal 34.0-46.0 [facility] ([place] Comment on above: Performed By: #### C BC, ADIFF, ANEU, PRO, GFR, CMP ####[place] [address] Hemoglobin mass conc (Bld) 13.1 G/dL Normal 12.0-16.0 [facility] ([place]) Comment on above: Performed By: #### C BC, ADIFF, ANEU, PRO, GFR, CMP ####[place] [address] MCH 33.0 pg Normal 27.0-33.0 [facility] ([place]) Comment on above: Performed By: #### C BC, ADIFF, ANEU, PRO, GFR, CMP ####[place] [address] MCHC mass conc (RBC) 35.1 G/dL Normal 32.0-36.0 [facility] ([place]) Comment on above: Performed By: #### C BC, ADIFF, ANEU, PRO, GFR, CMP ####[place] [address] MCV 94.2 fL Normal 80.0-99.0 [facility] ([place]) Comment on above: Performed By: #### C BC, ADIFF, ANEU, PRO, GFR, CMP ####[place] [address] Platelet mean volume (PMV) 7.4 fL Normal 6.6-10.5 [facility] ([place] Comment on above: Performed By: #### C BC, ADIFF, ANEU, PRO, GFR, CMP ####[place] [address] Platelets 223 10 3/mcL Normal 150-450 [facility] ([place] Comment on above: Performed By: #### C BC, ADIFF, ANEU, PRO, GFR, CMP ####[place] [address] WBC (Leukocytes) 5.50 10 3/mcL Normal 4.50-10.80 [facility] ([place]) Comment on above: Performed By: #### C BC, ADIFF, ANEU, PRO, GFR, CMP ####[place] [address] CMPon 05-17-2017 Albumin/Globulin Ratio 1.3 {ratio} Normal 0.9-1.6 [facility] ([place]) Comment on above: Performed By: #### C BC, ADIFF, ANEU, PRO, GFR, CMP ####[place] [address] Alk Phos 51 U/L Normal 38-126 [facility] ([place] Comment on above: Performed By: #### C BC, ADIFF, ANEU, PRO, GFR, CMP ####[place] [address] Bili Total 0.6 mg/dL Normal 0.2-1.2 [facility] ([place] Comment on above: Performed By: #### C BC, ADIFF, ANEU, PRO, GFR, CMP ####[place] [address] Globulin 2.9 G/dL Normal 1.5-3.8 [facility] ([place] Comment on above: Performed By: #### C BC, ADIFF, ANEU, PRO, GFR, CMP ####[address] [address] Protein 6.7 G/dL Normal 6.0-8.5 [facility] ([place] Comment on above: Performed By: #### C BC, ADIFF, ANEU, PRO, GFR, CMP ####[place] [address] Alanine aminotransferase (ALT) 25 U/L Normal 10-49 [facility] ([place] Comment on above: Performed By: #### C BC, ADIFF, ANEU, PRO, GFR, CMP ####[place] [address] Albumin 3.8 G/dL Normal 3.2-4.8 [facility] ([place] Comment on above: Performed By: #### C BC, ADIFF, ANEU, PRO, GFR, CMP ####[place] [address] Aspartate aminotransferase (AST) 15 U/L Normal 8-34 [facility] ([place] Comment on above: Performed By: #### C BC, ADIFF, ANEU, PRO, GFR, CMP ####[place] [address] BUN/Creatinine Ratio 12.5 ratio Normal 10.0-22.0 [facility] ([place] Comment on above: Performed By: #### C BC, ADIFF, ANEU, PRO, GFR, CMP ####[place] [address] Calcium 8.6 mg/dL Normal 8.4-10.1 [facility] ([place] Comment on above: Performed By: #### C BC, ADIFF, ANEU, PRO, GFR, CMP ####[place] [address] Chloride 114 mmol/L High 98-110 [facility] ([place] Comment on above: Performed By: #### C BC, ADIFF, ANEU, PRO, GFR, CMP ####[place] [address] CO2 22 mmol/L Normal 22-32 [facility] ([place] Comment on above: Performed By: #### C BC, ADIFF, ANEU, PRO, GFR, CMP ####[place] [address] Creatinine 0.96 mg/dL Normal 0.50-1.20 [facility] ([place] Comment on above: Performed By: #### C BC, ADIFF, ANEU, PRO, GFR, CMP ####[place] [address] Electrolyte Balance 7.0 mEq/L Normal 4.0-15.0 [facility] ([place]) Comment on above: Performed By: #### C BC, ADIFF, ANEU, PRO, GFR, CMP ####[place] [address] Glucose mass conc 88 mg/dL Normal 70-110 [facility] ([place] Comment on above: Performed By: #### C BC, ADIFF, ANEU, PRO, GFR, CMP ####[place] [address] Potassium molar conc 3.9 mmol/L Normal 3.5-5.0 [facility] ([place] Comment on above: Performed By: #### C BC, ADIFF, ANEU, PRO, GFR, CMP ####[place] [address] Sodium 143 mmol/L Normal 136-145 [facility] ([place] Comment on above: Performed By: #### C BC, ADIFF, ANEU, PRO, GFR, CMP ####[place] [address] Urea nitrogen 12.0 mg/dL Normal 8.0-22.0 [facility] ([place] Comment on above: Performed By: #### C BC, ADIFF, ANEU, PRO, GFR, CMP ####[place] [address] PROon 05-17-2017 INR Coag RelTime (PPP) 0.9 {INR} Normal [facility] ([place]) Comment on above: Result Comment: The [employer] (CHEST, 1992, 102:312S-25S)recommended therapeutic range for oral anticoagulant therapy is:LOW RISK: Prophylaxis of venous thrombosis INR: 2.0-3.0 Treatment of pulmonary embolism 2.0-3.0 Prevention of systemic embolism 2.0-3.0HIGH RISK: Mechanical prosthetic valves 2.5-3.5 Performed By: #### C BC, ADIFF, ANEU, PRO, GFR, CMP ####[place] [address] Prothrombin time (PT) Coag time (PPP) 10.9 s Normal 9.0-14.5 [facility] ([place]) Comment on above: Result Comment: Effe ctive 12/25/07, Protime results may be affected by some antibiotics (i.e. Ciprofloxacin, Azithromycin, Bactrim) which may potentiate the action of oral anticoagulants, with further increases in Protime/INR. Performed By: #### C BC, ADIFF, ANEU, PRO, GFR, CMP ####[place] [address] TABOon 05-17-2017 ABO/Rh Interp Positive Invalid Interpretation Code [facility] ([place] Comment on above: Performed By: #### A BRI ANTIS ####[place] [address] TABSon 05-17-2017 Antibody Screen Tango Negative Normal [facility] ([place]) Comment on above: Performed By: #### A BRI, ANTIS ####[place] [address] Vital Signs Date Time Vital Sign Value Performing Clinician Stephani saunders 11-18-2024 15:56-0400 Body temperature 98 [degF] Dr. Denise Cheng MD Work Phone: [facility] 11-18-2024 15:56-0400 Diastolic blood pressure 76 mm[Hg] Dr. Denise Cheng MD Work Phone: [facility] 11-18-2024 15:56-0400 Heart rate 75 /min Dr. Denise Cheng MD Work Phone: [facility] 11-18-2024 15:56-0400 Respiratory rate 18 /min Dr. Denise Cheng MD Work Phone: 0(405)526-659626 [place] [address] 11-18-2024 15:56-0400 SaO2% (BldA) [Mass fraction] 95 % Dr. Denise Cheng MD Work Phone: 7(695)572-370607 [place] [address] 11-18-2024 15:56-0400 Systolic blood pressure 111 mm[Hg] Dr. Denise Cheng MD Work Phone: 9(205)029-683207 [place] [address] 11-17-2024 22:43-0400 Body height 175.[address] Denise Cheng MD Work Phone: 2(980)295-190307 [place] [address] 11-17-2024 22:43-0400 Body mass index (BMI) [Ratio] 27.5 kg/m2 Dr. Denise Cheng MD Work Phone: 3(903)304-364607 [place] [address] 11-17-2024 22:43-0400 Body weight 84.[address] Denise Cheng MD Work Phone: 9(368)734-511507 [place] [address] 11-17-2024 22:32-0400 Body temperature 98.7 [degF] Dr. Denise Cheng MD Work Phone: 7(650)285-150207 [place] [address] 11-17-2024 22:32-0400 Diastolic blood pressure 72 mm[Hg] Dr. Denise Cheng MD Work Phone: 0(427)773-689107 [place] [address] 11-17-2024 22:32-0400 Heart rate 87 /min Dr. Denise Cheng MD Work Phone: 6(707)139-150207 [place] [address] 11-17-2024 22:32-0400 Respiratory rate 20 /min Dr. Denise Cheng MD Work Phone: 3(937)603-963407 [place] [address] 11-17-2024 22:32-0400 SaO2% (BldA) [Mass fraction] 90 % Dr. Denise Cheng MD Work Phone: 5(979)970-499307 [place] [address] 11-17-2024 22:32-0400 Systolic blood pressure 104 mm[Hg] Dr. Denise Cheng MD Work Phone: 2(981)023-498007 [place] [address] 11-17-2024 16:43-0400 Body height 175.[address] Denise Cheng MD Work Phone: 7(196)511-919407 [place] [address] 11-17-2024 16:43-0400 Body mass index (BMI) [Ratio] 25.3 kg/m2 Dr. Denise Cheng MD Work Phone: 3(849)823-852607 [place] [address] 11-17-2024 16:43-0400 Body weight 77.[address] Denise Cheng MD Work Phone: 2(732)763-730807 [place] [address] 08-10-2024 09:37-0500 Body temperature 99.1 [degF] Dr. Denise Cheng MD Work Phone: 9(072)545-949307 [place] [address] 08-10-2024 09:37-0500 Diastolic blood pressure 60 mm[Hg] Dr. Denise Cheng MD Work Phone: 6(001)506-067907 [place] [address] 08-10-2024 09:37-0500 Heart rate 85 /min Dr. Denise Cheng MD Work Phone: 8(038)529-593907 [place] [address] 08-10-2024 09:37-0500 Respiratory rate 16 /min Dr. Denise Cheng MD Work Phone: 7(255)030-459107 [place] [address] 08-10-2024 09:37-0500 SaO2% (BldA) [Mass fraction] 97 % Dr. Denise Cheng MD Work Phone: 9(178)303-323307 [place] [address] 08-10-2024 09:37-0500 Systolic blood pressure 118 mm[Hg] Dr. Denise Cheng MD Work Phone: 3(126)869-151307 [place] [address] 07-28-2024 12:43-0500 Body height 175.[address] Denise Cheng MD Work Phone: 4(262)083-365107 [place] [address] 07-28-2024 12:43-0500 Body temperature 98.1 [degF] Dr. Denise Cheng MD Work Phone: 3(218)630-549907 [place] [address] 07-28-2024 12:43-0500 Diastolic blood pressure 68 mm[Hg] Dr. Denise Cheng MD Work Phone: 9(376)509-462107 [place] [address] 07-28-2024 12:43-0500 Heart rate 96 /min Dr. Denise Cheng MD Work Phone: 5(380)378-863607 [place] [address] 07-28-2024 12:43-0500 Respiratory rate 12 /min Dr. Denise Cheng MD Work Phone: 0(980)876-430393 [place] [address] 07-28-2024 12:43-0500 SaO2% (BldA) [Mass fraction] 98 % Dr. Denise Cheng MD Work Phone: 0(745)062-215607 [place] [address] 07-28-2024 12:43-0500 Systolic blood pressure 116 mm[Hg] Dr. Denise Cheng MD Work Phone: 1(261)871-232507 [place] [address] 04-03-2023 07:34-0400 SaO2% (BldA) [Mass fraction] 95 % Dr. Denise Cheng Work Phone: 2(985)178-829407 [place] [address] 04-03-2023 07:23-0400 Body height 175.[address] Denise Cheng Work Phone: 2(439)193-001007 [place] [address] 04-03-2023 07:23-0400 Body mass index (BMI) [Ratio] 29.7 kg/m2 Dr. Denise Cheng Work Phone: 2(781)509-694407 [place] [address] 04-03-2023 07:23-0400 Body temperature 98.3 [degF] Dr. Denise Cheng Work Phone: 4(713)290-783107 [place] [address] 04-03-2023 07:23-0400 Body weight 91.[address] Denise Cheng Work Phone: 1(113)290-127607 [place] [address] 04-03-2023 07:23-0400 Diastolic blood pressure 81 mm[Hg] Dr. Denise Cheng Work Phone: 3(138)790-764007 [place] [address] 04-03-2023 07:23-0400 Heart rate 96 /min Dr. Denise Cheng Work Phone: 2(951)641-584607 [place] [address] 04-03-2023 07:23-0400 Respiratory rate 16 /min Dr. Denise Cheng Work Phone: 1(019)935-193707 [place] [address] 04-03-2023 07:23-0400 Systolic blood pressure 120 mm[Hg] Dr. Denise Cheng Work Phone: 0(587)583-982007 [place] [address] 01-20-2022 14:04-0400 Body height 175.[address] Denise Cheng Work Phone: [facility] Work Phone: 01-20-2022 14:02-0400 Body mass index (BMI) [Ratio] 28.7 kg/m2 Dr. Denise Cheng Work Phone: [facility] Work Phone: 01-20-2022 14:02-0400 Body temperature 97.6 [degF] Dr. Denise Cheng Work Phone: [facility] Work Phone: 01-20-2022 14:02-0400 Body weight 88.[address] Denise Cheng Work Phone: [facility] Work Phone: 01-20-2022 14:02-0400 Diastolic blood pressure 76 mm[Hg] Dr. Denise Cheng Work Phone: [facility] Work Phone: 01-20-2022 14:02-0400 Heart rate 91 /min Dr. Denise Cheng Work Phone: [facility] Work Phone: 01-20-2022 14:02-0400 Respiratory rate 16 /min Dr. Denise Cheng Work Phone: [facility] Work Phone: 01-20-2022 14:02-0400 SaO2% (BldA) [Mass fraction] 94 % Dr. Denise Cheng Work Phone: [facility] Work Phone: 01-20-2022 14:02-0400 Systolic blood pressure 121 mm[Hg] Dr. Denise Cheng Work Phone: [facility] Work Phone: 10-21-2021 10:55-0400 Body height 175.[address] Denise Cheng Work Phone: [facility] Work Phone: 10-21-2021 10:55-0400 Body mass index (BMI) [Ratio] 29 kg/m2 Dr. Denise Cheng Work Phone: [facility] Work Phone: 10-21-2021 10:55-0400 Body temperature 97.5 [degF] Dr. Denise Cheng Work Phone: [facility] Work Phone: 10-21-2021 10:55-0400 Body weight 89.[address] Denise Cheng Work Phone: [facility] Work Phone: 10-21-2021 10:55-0400 Diastolic blood pressure 89 mm[Hg] Dr. Denise Cheng Work Phone: [facility] Work Phone: 10-21-2021 10:55-0400 Heart rate 79 /min Dr. Denise Cheng Work Phone: [facility] Work Phone: 10-21-2021 10:55-0400 Respiratory rate 16 /min Dr. Denise Cheng Work Phone: [facility] Work Phone: 10-21-2021 10:55-0400 SaO2% (BldA) [Mass fraction] 98 % Dr. Denise Cheng Work Phone: [facility] Work Phone: 10-21-2021 10:55-0400 Systolic blood pressure 133 mm[Hg] Dr. Denise Cheng Work Phone: [facility] Work Phone: 10-06-2021 14:09-0400 Body mass index (BMI) [Ratio] 29.5 kg/m2 Dr. Denise Cheng Work Phone: [facility] Work Phone: 10-06-2021 14:09-0400 Body temperature 98.4 [degF] Dr. Denise Cheng Work Phone: [facility] Work Phone: 10-06-2021 14:09-0400 Body weight 90.[address] Denise Cheng Work Phone: [facility] Work Phone: 10-06-2021 14:09-0400 Diastolic blood pressure 85 mm[Hg] Dr. Denise Cheng Work Phone: [facility] Work Phone: 10-06-2021 14:09-0400 Heart rate 102 /min Dr. Denise Cheng Work Phone: [facility] Work Phone: 10-06-2021 14:09-0400 Respiratory rate 16 /min Dr. Denise Cheng Work Phone: [facility] Work Phone: 10-06-2021 14:09-0400 SaO2% (BldA) [Mass fraction] 97 % Dr. Denise Cheng Work Phone: [facility] Work Phone: 10-06-2021 14:09-0400 Systolic blood pressure 123 mm[Hg] Dr. Denise Cheng Work Phone: [facility] Work Phone: Encounters Encounter Date Encounter Type Care Provider Facility Start: 12-02-2024 ambulatory Denise Cheng Facility:[facility] Start: 11-18-2024 Non-patient / Non-visit Dr. Camila walters MD -[facility] Start: 11-17-2024 Non-patient / Non-visit Dr. Julieta Gaspar MD -[facility] Work Phone: Start: 11-17-2024 End: 11-18-2024 ambulatory Esther Gaspar Facility:[facility] Start: 11-17-2024 End: 11-18-2024 Evaluation and management of inpatient Dr. Esther Gaspar MD -Progressive Care Unit Work Phone: Start: 11-17-2024 End: 11-18-[address] Denise Cheng MD Work Phone: [facility] Work Phone: Start: 10-31-2024 End: 10-31-[address] Denise Cheng MD Work Phone: [facility] Work Phone: Start: 10-31-2024 End: 10-31-[address] Denise Cheng MD -Laboratory [place] Work Phone: Start: 10-31-2024 End: 10-31-2024 ambulatory Denise Cheng Facility:[facility] Start: 10-07-2024 Encounter for other preprocedural examination Saul Bazan [facility] Start: 10-01-2024 End: 10-01-2024 Non-patient / Non-visit Dr. Giancarlo Hammer MD -[facility] Work Phone: Start: 10-01-2024 End: 10-01-[address] Denise Cheng MD Work Phone: [facility] Work Phone: Start: 10-01-2024 End: 10-01-[address] Saul Bazan DO -Pulmonary Services/Neurology Work Phone: Start: 10-01-2024 End: 10-01-2024 ambulatory Saul Bazan Facility:[facility] Start: 09-03-2024 End: 09-03-[address] Denise Cheng MD Work Phone: [facility] Work Phone: Start: 09-03-2024 End: 09-03-[address] Denise Cheng MD -Outpatient Breast Imaging Work Phone: Start: 09-03-2024 End: 09-03-2024 ambulatory Denise Cheng Facility:[facility] Start: 08-10-2024 End: 08-10-2024 Patient encounter procedure Farida ODOM -[facility] Work Phone: Start: 08-10-2024 End: 08-10-2024 ambulatory Denise Cheng Facility:[facility] Start: 07-29-2024 End: 07-29-2024 Patient encounter procedure Adilson Cordova TAXIMETER REPAIRER-C -Laboratory, Specimen Work Phone: Start: 07-28-2024 End: 07-28-2024 Patient encounter procedure Adilson Cordova TAXIMETER REPAIRER-C [facility] Work Phone: Start: 07-28-2024 End: 07-29-2024 ambulatory Adilson Cordova NP Facility:[facility] Start: 04-15-2024 End: 04-15-2024 ambulatory Denise Cheng Facility:[facility] Start: 01-25-2024 End: 01-25-2024 ambulatory Denise Cheng Facility:[facility] Start: 08-15-2023 End: 08-15-2023 ambulatory [facility] Work Phone: Start: 08-15-2023 End: 08-15-2023 Patient encounter procedure [facility]-Outpatient Breast Imaging Work Phone: Start: 06-20-2023 End: 06-20-2023 ambulatory [facility] Work Phone: Start: 06-20-2023 End: 06-20-2023 Discharged Recurring [facility]-Physical Therapy Work Phone: Start: 06-20-2023 Registered Recurring [facility]-Physical Therapy Work Phone: Start: 06-14-[address] Denise Cheng Work Phone: [facility]-Physical Therapy Work Phone: Start: 06-09-2023 End: 06-09-[address] Denise Cheng Work Phone: [facility] Work Phone: Start: 06-09-2023 End: 06-09-[address] Denise Cheng Work Phone: [facility]-Laboratory, [place] Work Phone: Start: 05-16-2023 End: 05-16-[address] Denise Cheng Work Phone: [facility]-Radiology, [place] Work Phone: Start: 04-03-2023 End: 04-03-[address] Denise Cheng Work Phone: [facility] Work Phone: Start: 02-01-2023 End: 02-01-2023 ambulatory [facility] Facility:[facility] Start: 02-01-2023 End: 02-01-2023 Subsequent hospital visit by physician Xr [facility] Work Phone: Radiology Comment on above: Plantar fascial fibr omatosis [M72.2] Start: 01-12-2023 End: 01-12-2023 ambulatory [facility] Work Phone: Start: 01-12-2023 End: 01-12-2023 Patient encounter procedure [facility]-Ultrasound, [facility] Work Phone: Start: 11-12-2022 End: 11-12-2022 ambulatory [facility] Work Phone: Start: 11-12-2022 End: 11-12-2022 Patient encounter procedure [facility]-MRI - H Start: 11-09-2022 End: 11-09-2022 ambulatory [facility] Work Phone: Start: 11-09-2022 End: 11-09-2022 Patient encounter procedure [facility]-Laboratory, [place] Start: 10-27-2022 End: 10-27-2022 Discharged Recurring [facility]-Physical Therapy Start: 09-22-2022 End: 09-22-2022 ambulatory [facility] Work Phone: Start: 09-22-2022 End: 09-22-2022 Patient encounter procedure [facility]-Radiology, [place] Start: 03-24-2022 End: 03-24-[address] Denise Cheng Work Phone: [facility] Work Phone: Start: 03-24-2022 End: 03-24-[address] Denise Cheng Work Phone: [facility]-Outpatient Breast Imaging Start: 01-20-2022 End: 01-20-[address] Denise Cheng Work Phone: [facility] Start: 01-13-2022 End: 01-13-[address] Denise Cheng Work Phone: [facility] Start: 10-21-2021 End: 10-21-[address] Denise Cheng Work Phone: [facility] Start: 10-19-2021 End: 10-19-[address] Denise Cheng [facility] Phone[facility] Start: 10-06-[address] Denise Cheng Work Phone: [facility] Start: 10-06-2021 End: 10-06-[address] Denise Cheng Work Phone: [facility] Start: 09-09-2021 End: 09-09-[address] Denise Cheng Work Phone[facility] Start: 08-03-2021 End: 08-03-[address] Denise Cheng Work Phone: [facility] Start: 08-02-2021 End: 08-02-[address] Denise Cheng [facility] Start: 07-26-2021 End: 07-26-[address] Denise Cheng [facility] Phone[facility] Start: 06-02-2017 End: 06-05-2017 Evaluation and management of inpatient LAMAR CARMEN Facility:[facility] Start: 05-24-2017 End: 05-26-2017 Evaluation and management of inpatient LAMAR CARMEN Facility:[facility] Start: 05-17-2017 End: 05-18-2017 Ambulatory LAMAR CARMEN Facility:[facility] Procedures Date Procedure Procedure Detail Performing Clinician Start: 11-18-[address] Denise Cheng MD Work Phone: Start: 11-18-2024 Cardiovascular stres s test using pharmacologic stress agent Dr. Denise Cheng MD Work Phone: Start: 11-17-2024 CT angiography of ch est [...] Work Phone: Comment on above: Performed at: [address] Director: Dominick De La Rosa PhD, Phone: [phone] Start: 09-03-2024 Screening mammography Gale Cheng MD Work Phone: Start: 07-29-[address] Denise Cheng MD Work Phone: Start: 08-15-2023 Screening mammography Start: 05-16-2023 Radiologic examinati on of knee Dr. Denise Cheng Work Phone: Start: 05-16-2023 Plain x-ray of pelvi s and lower extremity Dr. Denise Cheng Work Phone: Start: 08-23-2023 Radex foot complete minimum 3 views Jared Stewart Work Phone: Start: 01-12-2023 Ultrasonography of abdomen [...] DTaP,Tdap,Td Vaccine (2 - Td or Tdap) [facility] Start: 11-18-2024 Patient discharge [facility] Start: 11-17-2024 Assessment of risk of venous thromboembolism [facility] Start: 11-17-2024 Inhalation therapy procedure [facility] Start: 11-17-2024 Insertion of catheter into peripheral vein [facility] Start: 11-17-2024 Introduction of urinary catheter [facility] Start: 11-17-2024 Measuring intake and output [facility] Start: 11-17-2024 Oxygen therapy [facility] Start: 11-17-2024 Providing care according to standard [facility] Start: 11-17-2024 Provision of activity privileges [facility] Start: 11-17-2024 Tobacco use cessation education [facility] Start: 11-17-2024 [facility] Start: 11-17-2024 Electrocardiographic procedure [facility] Start: 11-17-2024 Verification routine [facility] Start: 11-17-2024 Admission procedure [facility] Start: 11-17-2024 Hospital admission, emergency, from emergency room, medical nature [facility] Start: 11-17-2024 End: 11-18-2024 [facility] Start: 02-10-2023 Covid-19 Vaccine ( season) Covid-19 Vaccine () [facility] Start: 02-10-2023 Influenza vaccination Influenza Vaccine (#1) [facility] Start: 06-12-2022 Depression Assessment Depression Assessment [facility] Start: 10-04-2019 Colonoscopy Colonoscopy [facility] Start: 10-04-2019 Colorectal Cancer Screening Colorectal Cancer Screening [facility] Start: 10-31-2015 Shingrix Vaccine (1 of 2) Shingrix Vaccine (1 of 2) [facility] Start: 2010 Cologuard (FIT-DNA) Cologuard (FIT-DNA) [facility] Start: [address] Colonography [facility] Start: 2010 Diabetes Screening Diabetes Screening [facility] Start: 2010 Fecal Occult Blood Fecal Occult Blood [facility] Start: 2010 Lipid 1996 panel - Serum or Plasma Lipid Screening [facility] Start: 2010 Sigmoidoscopy Sigmoidoscopy [facility] Start: 04-20-2010 HPV Testing HPV Testing [facility] Start: 04-20-2010 Pap Testing Pap Testing [facility] Start: 2005 Mammography Mammogram Screening [facility] Start: 10-31-1983 Hepatitis C Screening Hepatitis C Screening [facility] Start: 10-31-1983 HIV Screening HIV Screening [facility] Start: 1965 Hepatitis B Vaccine (1 of 3 - 3-dose series) Hepatitis B Vaccine (1 of 3 - 3-dose series) [facility] Amphetamines [Presen ce] in Urine by Screen method >1000 ng/mL [facility] Benzodiazepine measu rement, urine [facility] C reactive protein [Mass/volume] in Serum or Plasma [facility] Cocaine measurement, urine [facility] Erythrocyte sedimentation rate [facility] fentaNYL [Presence] in Urine by Screen method [facility]one [facility], urine [facility] Patient Education ED Chest Pain, Noncardiac [facility] Work Phone: Patient referral [facility] Work Phone: Phencyclidine [Prese nce] in Urine [facility] Urine cannabinoid measurement [facility] Urine opiate measurement [facility] Immunizations Immunization Date Immunization Notes Care Provider Fa kasey 03-08-2022 influenza virus vaccine, unspecified formulation [employer] Work Phone: [facility] 01-21-2020 tetanus toxoid, redu rima diphtheria toxoid, and acellular pertussis vaccine, adsorbed [employer] Work Phone: [facility] Work Phone: Payers Date Payer Category Payer Self-pay [id number] 2022 Unknown [employer] P[employer] [id number] 2022-Present [phone] [address] [place] [address] PPO [id number] 2017 Unknown [id number] 2017 Unknown [id number] 2013 Unknown [id number] Unknown [id number] Unknown [id number] Unknown [id number] Unknown [id number] Unknown [id number] Unknown [id number] Unknown [id number] Unknown [id number] Unknown [id number] Unknown [id number] Unknown [id number] Unknown [id number] Unknown [id number] Unknown [id number] Unknown [id number] [id number] Unknown [id number] Unknown [id number] Social History Date Type Detail Facility Start: 10-06-2021 End: 04-03-2023 Tobacco smoking status COIS Unknown if ever smoked [facility] Start: 12-05-2019 Non-smoker [facility] Start: 1965 Sex Assigned At Female [facility] Start: 07-25-2017 End: 11-17-2024 Tobacco smoking status COIS Never smoked tobacco [facility] Start: 07-25-2017 Tobacco use and exposure Smokeless tobacco non-user [facility] Start: 02-01-2023 Alcohol intake Current drinke r of alcohol (finding) [facility] Start: 02-01-2023 History of Social function [facility] Start: 02-01-2023 Tobacco use panel [facility] National Score (1-100), lower number is lower risk 65 [facility] Start: 1965 Sex Assigned At Not on file C [facility] Start: 09-09-2024 End: 10-04-2024 Sex Female (finding) [facility] Goals Date Patient Goal Desired Activity /State Functional Status Date Assessment Result Facility 11-18-2024 Functional status Ambulates [facility] Work Phone: Mental Status Date Assessment Result Facility 11-18-2024 Cognitive function Voice/Name [facility] Work Phone: 11-17-2024 Cognitive function Voice/Name [facility] Work Phone: Clinical Notes 02-01-2023 to 11-18-2024 Note Date & Type Note Facility 11-18-2024 Note [facility] Medical Records Department [address] [place] [address] Discharge Summary 11/18/24 1552 MR#: [id number] Acct: [id number] Name: YUMIKO GROSSMAN Rep #: [id number] : 1965 59 From: Barby Louise MD PCP: Dr. Denise Cheng MD Status:DIS VALORIE Location: [place] [address] Providers Date of Admission: 11/17/24 Date of Discharge: 11/18/24 Primary Care Physician: Dr. Denise Cheng MD Reason For Visit: CHEST PAIN Diagnosis Discharge Diagnosis (1) Chest pain: Status: Acute Code(s): R07.9 - Chest pain, unspecified Medications at Discharge Home Medications methylphenidate HCl 27 mg tablet,extended release 24 hr 36 mg PO DAILY ADD 10/01/18 trazodone 100 mg tablet 100 mg PO QHS sleep 10/01/18 erenumab-aooe 140 mg/mL subcutaneous auto-injector 140 mg SQ QMONTH migraines 12/05/19 ascorbate calcium (vitamin C) 500 mg tablet 500 mg PO DAILY vitamin 09/28/21 vitamin with calcium no.72-iron 27 mg-folic acid 1 mg tablet ea PO DAILY 09/28/21 duloxetine 40 mg capsule,delayed release 40 mg PO DAILY mental health 10/06/21 magnesium oxide 500 mg capsule 1,000 mg PO DAILY supplement 10/06/21 vitamin B complex 1 tab PO DAILY vitamin 10/06/21 rizatriptan 10 mg tablet 10 mg PO .COMPLEX PRN migraine headache 01/27/23 lansoprazole 15 mg capsule,delayed release (Prevacid 24Hr) 20 mg PO DAILY reflux 11/17/24 lidocaine 1.8 % topical patch 1 patch topical DAILY #30 ea 11/18/24 Hospital Course Operations None Procedures Stress test Summary of Care Provided Minutes Spent on Discharge: 42 Hospital Course: Patient is a 59-year-old female with past medical history as outlined was admitted to the ED on 11/17/2024 with complaint of chest pain which started about 2 hours prior to admission. It was mainly under the left rib and radiated to the neck in her trapezius region. This started while she was in a car and she had never had this before. It worsen with activity and with deep inspiratory efforts. She therefore came into the ED to be evaluated. EKG showed no acute ST changes. Initial troponin was 76 and repeat was 69. CTA of the chest was negative for any evidence of PE and showed enlargement of distal pulmonary artery seen with possible pulmonary hypertension trace left pleural effusion. She was admitted to be managed for chest pain to rule out ACS. She had stress test done on 11/18/2024 which showed no evidence of ischemia. She also had 2D echo which showed normal ventricular systolic function and EF of 65% with hypermobile atrial septum and tricuspid aortic valve with possible small Lambl's excrescence. The pain also appeared to be musculoskeletal during examination. I did call patient's orthopedic surgeon Dr. Bazan to discuss her presentation with him as she was due for a meniscal repair according to patient on the Monday. Dr. Bazan per discussion did not see any need for further cardiac workup before having the surgery. She was therefore discharged home on 11/18/2024. She is follow-up with her primary care doctor within 1 to [address] Bazan's request was to call his office on 11/19/2024 to check in with him to see how she was feeling for them to confirm if she could have the knee arthroscopy done on 11/20/2024. Patient was seen and examined prior to discharge. She had no active complaints. Review of systems otherwise negative. Labs and vitals reviewed. Home medication reviewed and reconciled. Physical Exam Const alert, oriented x3 and no apparent distress General Appearance: cooperative, comfortable and well kempt Orientation / Consciousness: awake Exam Limitations: no limitations HEENT head/scalp atraumatic, hearing grossly normal bilaterally and moist oral mucous membranes Mouth: oral and palatal mucosa normal Eyes EOMs intact bilaterally and conjunctivae normal Neck no lymphadenopathy and supple Resp normal respiratory effort, no use of accessory muscles and clear to auscultation bilaterally Cardio regular rate, regular rhythm, S1 normal heart sound, S2 normal heart sound and no murmurs GI normal to inspection, nondistended, normoactive bowel sounds, soft to palpation, non-tender and non- distended Extremity normal to inspection, full ROM and no clubbing, cyanosis or edema Skin no rashes or lesions noted Neuro oriented x3, moves all extremities and no focal motor deficits Sensorium / Orientation: awake and alert Motor Exam: strength 5/5 throughout Psych affect normal Weight / BMI Weight Weight: 186 lb 8.177 oz Body Mass Index (BMI) 27.5 ABG / Lab / Microbiology Data 11/18/24 05:56 11/18/24 05:56 Laboratory: Laboratory Results - last 24 hr 11/17/24 16:45: WBC 7.4, RBC 4.38, Hgb 13.9, Hct 41.6, MCV 95.0, MCH 31.7, MCHC 33.4, RDW Std Deviation 44.7 H, RDW Coeff of Maged 12.9, Plt Count 308, MPV 9.3, Imm (more content not included)... [facility] 11-18-2024 Discharge summary [facility] 11-18-2024 History and physical note Note Date/Time November 17, 2024 10:37pm [facility] Medical Records Department [address] [place] [address] H&P Exam - Hospitalist 11/17/24 2213 MR#: [id number] Acct: [id number] Name: YUMIKO GROSSMAN Rep #:[id number] : 1965 59 From: Esther Gaspar MD PCP: Dr. Denise Cheng MD Status:ADM IN Location: [place] [address] HPI - General General Date of Admission: 11/17/24 Date of Service: 11/17/24 Chief Complaint: Chest pain HPI Narrative The patient is a 59 y/o F w/ PMHx: Anxiety and Depression/ADHD, Chronic migraines, OA who presents to the [facility] ED on 11/17/2024 withhistory of onset [...] 1, cyclobenzaprine 10 mg p.o. x 1. [facility] Medical History ADHD Anxiety and depression Hx [...] 40.4 L, Lymph % (Auto) 46.6 H, Sunflower % (Auto) 10.2 H, Eos % (Auto) [...] 19:18 IMPRESSION: NO ACUTE FINDINGS. Reading Location: [facility] Chest CTA 11/17/24 20:36 IMPRESSION: 1. No acute pulmonary embolism. 2. Ectasia of the main pulmonary artery and enlargement of the distal pulmonary arteries, which can be seen with pulmonary hypertension. 3. Trace left pleural effusion. Reading Location: [facility] Assessment & Plan Assessment/Plan (1) Chest pain: PLAN: Plan The patient is a 59 y/o F w/ PMHx: Anxiety and Depression/ADHD, Chronic migraines, OA who presents to the [facility] ED on 11/17/2024 withhistory of onset [...] prophylaxis: Lovenox. Charges/Coding Visit Charges Inpatient E&M: 27564 Init Hosp L3 11/17/241 <Electronically signed by Esther Gaspar MD> Cosigner Signature (if applicable): CC: Dr. Esther Gaspar MD; Dr. Denise Cheng MD~ Signed [facility] Work Phone: 1(378) 639-305006-09-2025 Discharge summary Author [facility] Note Date/Time November 17, 2024 10:24 pm [facility] Medical Records Department [address] [place] [address] Emergency Department Summary 11/17/24 MR#: [id number] Acct: [id number] Name: YUMIKO GROSSMAN Rep #:[id number] : 1965 59 From: [...] repair surgery on her knee thiscoming Monday. [facility] Medical History (Updated 11/17/24 @ 22:24 by [...] mild transaminitis but this is nonspecific. Initial high- sensitivitytroponin was delayed but it was elevated at [...] 40.4 L Lymph % (Auto) 46.6 H Sunflower % (Auto) 10.2 H Eos % (Auto) [...] 19:18 IMPRESSION: NO ACUTE FINDINGS. Reading Location: [id number] Chest CTA 06/08/25 20:36 IMPRESSION: 1. No acute pulmonary embolism. 2. Ectasia of the main pulmonary artery and enlargement of the distal pulmonary arteries, which can be seen with pulmonary hypertension. 3. Trace left pleural effusion. Reading Location: [facility] Rhythm Strip Rhythm Strip: Sinus Rhythm Rate: [...] MD [Primary Care Provider] - Print Language: Faroese Disposition Disposition: Acute Care Hospital [facility] What to do if you have Problems For any increased pain, shortness of breath, bleeding, nausea or vomiting, chestpain, or any unexpected problems, contact your Primary Care Provider. Call [facility] ([phone]) or report to the closest Emergency Room. Call 911 if necessary. 11/17/244 <Electronically signed by Natalia Felix DO> Cosigner Signature (if applicable): CC: Dr. Denise Cheng MD ~ Signed [facility] Work Phone: 1(402) 250-729006-08-2025 History and physical note [facility] Medical Records Department [address] [place] [address] H&P Exam - Hospitalist 11/17/24 2213 MR#: [id number] Acct: [id number] Name: YUMIKO GROSSMAN Rep #:[id number] : 1965 59 From: Esther Gaspar MD PCP: Dr. Denise Cheng MD Status:ADM IN Location: [place] [address] HPI - General General Date of Admission: 11/17/24 Date of Service: 11/17/24 Chief Complaint: Chest pain HPI Narrative The patient is a 59 y/o F w/ PMHx: Anxiety and Depression/ADHD, Chronic migraines, OA who presents to the [facility] ED on 11/17/2024 withhistory of onset chest discomfort starting approximately 2 hours prior to ED arrival specifically under the left rib/breast region radiating up into the neckas well as the trapezius region noted that she was in the car when it started never havinghad this before noted to be worse with [...] inthe ED included T98.2, heart 92, BP 152/93,respiratory rate 22, 97% on room airwith most [...] mg IV x 1, fentanyl 50 mcg IVx 1, cyclobenzaprine 10 mg p.o. x 1. [facility] Medical History ADHD Anxiety and depression Hx [...] secondary to pain elicited with any movement ordeep inspiration. Psychiatric: Affect appears fatigued, uncomfortable no [...] 40.4 L, Lymph % (Auto) 46.6 H, Sunflower % (Auto) 10.2 H, Eos % (Auto) [...] 19:18 IMPRESSION: NO ACUTE FINDINGS. Reading Location: [facility] Chest CTA 11/17/24 20:36 IMPRESSION: 1. No acute pulmonary embolism. 2. Ectasia of the main pulmonary artery and enlargement of the distal pulmonary arteries, which canbe seen with pulmonary hypertension. 3. Trace left pleural effusion. Reading Location: [facility] Assessment & Plan Assessment/Plan (1) Chest pain: PLAN: Plan The patient is a 59 y/o F w/ PMHx: Anxiety and Depression/ADHD, Chronic migraines, OA who presents to the [facility] ED on 11/17/2024 withhistory of onset chest discomfort starting approximately 2 hours prior to ED arrival specifically under the left rib/breast region radiating up into the neckas well as the trapezius region noted that she was in the car when it started never havinghad this before noted to be worse with [...] with serial cardiac enzymes and EKGs. As longas cardiac enzymes continue to trend downward with [...] etiology: Admission AST/LT 37/44, hepatic profile otherwise normal,from previous labs noted to be normal in [...] prophylaxis: Lovenox. Charges/Coding Visit Charges Inpatient E&M: 72157 Init Hosp L3 11/17/24 2239 Cosigner Signature (if applicable): CC: Dr. Esther Gaspar MD; Dr. Denise Cheng MD~ Signed [facility]06-08-2025 Discharge summary [facility] Medical Records Department [address] [place] [address] Emergency Department Summary 11/17/24 MR#: [id number] Acct: [id number] Name: YUMIKO GROSSMAN Rep #:[id number] : 1965 59 From: Natalia Hardy PCP: Dr. Denise Cheng MD Status:REG ER Location: ED HPI History of Present Illness Chief Complaint: Chest Pain Informant: patient Narrative Narrative: Patient is a 59-year-old female presenting with sudden onset of chest pain that started approximate2 hours prior to arrival. She has this pain underneath her left rib/breast. Is up to her neck into her trapezius area. She states she wasriding in the car when it started. She never any like this before. Pain is worse with movement as well as deep breathing. Denies any swelling of her legs. Did nottake any for her pain prior to arrival. [...] done yet. She denies any change in herpain with eating. She denies any urinary symptoms. No associated nausea or vomiting. Came in for further evaluation. She states that she is supposed to have meniscus repair surgery on her knee thiscoming Monday. [facility] Medical History (Updated 11/17/24 @ 22:24 by [...] Patienthas a benign abdominal exam with no tendernessto lower suspicion for this. Workup shows a normal CBC. D-dimer is normal at 0.30. CMP unremarkable, she has a very mild transaminitis but this is nonspecific. Initial high- sensitivitytroponin was delayed but it was elevated at [...] pulmonary artery and enlargement of the distal pulmonaryarteries which could be seen in pulmonary hypertension as well as trace left pleural effusions. Patient's pain is returning and she is given Ativan. She is also given IV fluids. Patient had some improvement but pain returns given aspirin and fentanyl. Will be admitted to hospitalist for further cardiac workup given her elevated troponin and unexplained chest pain. Given thather troponin is downtrending donot think she requires [...] 40.4 L Lymph % (Auto) 46.6 H Sunflower % (Auto) 10.2 H Eos % (Auto) [...] 19:18 IMPRESSION: NO ACUTE FINDINGS. Reading Location: [facility] Chest CTA 11/17/24 20:36 IMPRESSION: 1. No acute pulmonary embolism. 2. Ectasia of the main pulmonary artery and enlargement of the distal pulmonary arteries, which canbe seen with pulmonary hypertension. 3. Trace left pleural effusion. Reading Location: [facility] Rhythm Strip Rhythm Strip: Sinus Rhythm Rate: [...] MD [Primary Care Provider] - Print Language: Faroese Disposition Disposition: Acute Care Hospital [facility] What to do if you have Problems For any increased pain, shortness of breath, bleeding, nausea or vomiting, chestpain, or any unexpected problems, contact your Primary Care Provider. Call [facility] ([phone]) or report tothe closest Emergency Room. Call 911 if necessary. 11/17/242223 Cosigner Signature (if applicable): CC: Dr. Denise Cheng MD ~ Signed [facility]06-08-2025 Radiology Diagnostic study note [facility] Imaging Services [address] [place] [address] CTA Chest W/WO Contrast MR#: [id number] Acct: [id number] Name: YUMIKO GROSSMAN Rep #: [id number] : 1965 F 59 From: Ashely Mulligan MD PCP: Dr. Denise Cheng MD Status: REG ER Study:CTA Chest W/WO Contrast Date of Exam: 11/17/24 Exam# [id number] Ordering Dr: Eva Felix DO PROCEDURE: CTA [...] enlargement of the distal pulmonary arteries, which canbe seen with pulmonary hypertension. 3. Trace left pleural effusion. Reading Location: [facility] CC: Dr. Natalia Felix DO; Dr. Denise Cheng MD ~ [employer]: Signed [facility]06-08-2025 Radiology Diagnostic study note [facility] Imaging Services [address] [place] [address] [id number] Chest PA and Lateral MR#: [id number] Acct: [id number] Name: YUMIKO GROSSMAN Rep #: [id number] : 1965 F 59 From: Ashely Mulligan MD PCP: Dr. Denise Cheng MD Status: [facility] ER Study:Chest PA and Lateral Date of Exam: 11/17/24 Exam# [id number] Ordering Dr: Eva Felix DO PROCEDURE: CHEST [...] Lateral IMPRESSION: NO ACUTE FINDINGS. Reading Location: [facility] CC: Dr. Natalia Felix DO; Dr. Denise Cheng MD ~ [employer]: Signed [facility]02-16-2025 Evaluation note* Diagnosis Onset Date Resolution Status Admit Date Urinary tract infection noneactive F [facility] 2024 12:44pm Viral URI with cough acute [facility] 2024 9:22am [facility] Work Phone: 1(529) 261-562002-16-2025 Evaluation note* Diagnosis Onset Date Resolution Status Admit Date Urinary tract infection noneactive F [facility] 2024 12:44pm Viral URI with cough acute [facility] 2024 9:22am Chest pain acute November 17, 2024 10:34pm [facility] Work Phone: 1(305) 652-486402-16-2025 Evaluation note* Diagnosis Onset Date Resolution Status Admit Date Urinary tract infection noneactive F [facility] 2024 12:44pm Viral URI with cough acute [facility] 2024 9:22am Chest pain acute November 17, 2024 10:15pm [facility] Work Phone: 1(882) 348-983404-05-2024 Discharge summary Author Ricardo Salvador [facility] September 15, 2023 8:26am Note Date/Time September 15, 2023 8:26 am [facility] Physical Therapy [facility] [address] [place] [address] [address] [place] [address] / REHABILITATION SERVICES DISCHARGE SUMMARY MR#: [id number] Acct: [id number] Name: YUMIKO GROSSMAN Rep #: [id number] : 1965 57 From: Ricardo Anna Referring Dr.: Dr. Denise Cheng MD Status: REG [facility] Insurance: [facility] SELF PAY INSURANCE Patient Information Patient Information: YUMIKO GROSSMAN was seen in my office for initial [...] Dr. Denise Cheng MD ~ CLS Signed [facility] Work Phone: 1(373) 399-811608-23-2023 NoteHNO ID: [id number] Author: Sherlyn Garcia RN Service: ? Author [...] to utilize the above equipment. [facility]23 NoteHNO ID: [id number] Author: Jared Stewart Service: ? Author Type: [...] mood. Does not a (more content not included)...[facility] 02-01-2023 NoteHNO ID: [id number] Author: Sherlyn Garcia RN Service: ? Author [...] under her toes. XR completed today to review.[facility]08-23-2023 NoteHNO ID: [id number] Author: Estrellita Hoyt RT(R) Service: Radiology Author Type: Technologist Type: Progress Notes Filed: 02/01/2023 1:49 PM Note Text: Radiology Service Progress Note PATIENT NAME: Yumiko Grossman DATE OF SERVICE: February 01, 2023 TIME: [...] BY: RT Rivas(R) February 01, 2023 1:39 [facility]08-23-2023 History of Present illness Narrative* Estrellita Hoyt RT(R) - 02/01/2023 1:40 PM EDT Radiology Service Progress Note PATIENT NAME: Yumiko Grossman DATE OF SERVICE: February 01, 2023 TIME: [...] 01, 2023 1:39 PM documented [facility] summary Author Barby Louise [facility] Note Date/Time November 18, 2024 3:51p [facility] Medical Records Department [address] [place] [address] Instructions for Home/Discharge Instructions 11/18/24 1550 MR#: [id number] Acct: [id number] Name: YUMIKO GROSSMAN Rep #:[id number] : 1965 59 From: Barby Louise MD PCP: Dr. eDnise Cheng MD Status:ADM VALORIE Discharge Instructions Diet Discharge Diet: Low fat / Low cholesterol DC O2, CPAP, BIPAP needs Home O2 Discharge instructions: No Dressing / Incision Discharge Activity: Return to Normal Activity Weight Bearing Status: Weight bearing as tolerated Dressing / Incision Call your doctor if you observe: Fever of 101 or Higher, Shortness of breath, Dizziness, Swelling in the ankles, Chest pain and Increased palpitations (irregular heartbeat) Follow Up Care Test Results: Test results from this visit will be discussed in further detail at your follow- up appointment, if applicable. Discharge Plan Admission Admit Date/Time: 11/17/24 22:15 Primary Reason for Your Visit: chest pain Attending Provider: Barby Louise Primary Care Provider: Denise Cheng Consulting Providers: Esther Gaspar Instructions Patient Instructions: ED Chest Pain, Noncardiac Discharge Orders/Prescriptions Prescriptions: New lidocaine 1.8 % adhesive patch,medicated 1 patch topical DAILY Qty: 30 0RF Rx Instructions: leave on most painful area for up to 12 hrs Continued ascorbate calcium (vitamin C) 500 mg tablet 500 mg PO DAILY PNV,calcium 02-dbkp-awfqw acid 27 mg iron- 1 mg tablet PO DAILY Patient Comments: TAKE 1 TABLET BY MOUTH EVERY DAY DO NOT TAKE AT SAME TIME FERROUS GLUCONATE duloxetine 40 mg capsule,delayed release(DR/EC) 40 mg PO DAILY magnesium oxide 500 mg capsule 1,000 mg PO DAILY vitamin B complex Tablet 1 tab PO DAILY rizatriptan 10 mg tablet 10 mg PO .COMPLEX PRN (Reason: migraine headache) Rx Instructions: 10 mg orally PRN; trazodone 100 MG tablet 100 mg PO QHS methylphenidate HCl 27 MG tablet extended release 24hr 36 mg PO DAILY erenumab-aooe 140 MG/ML auto-injector 140 mg SQ QMONTH lansoprazole [Prevacid 24Hr] 15 mg capsule,delayed release(DR/EC) 20 mg PO DAILY Referrals / Follow Up: Denise Cheng MD [Primary Care Provider] - Within 1 Week Saul Bazan DO [Med Staff - Active Staff] - 11/19/24 (Call Dr. Bazan's office tomorrow as discussed to check in for preparation for surgery on 11/20/2024.) Disposition Disposition (needs filled in before D/C Order can be placed): Home, Self Care 11/18/24 1551<Electronically signed by Barby Louise MD>Barby Louise MD CC: Dr. Esther Gaspar MD; Dr. Denise Cheng MD ~ Signed [facility] Work Phone: Evaluation note* Diagnosis Onset Date Resolution Status Easy bruising chronic Splenomegaly chronic Easy bruising chronic Splenomegaly chronic [facility] Work Phone: Evaluation note* Diagnosis Onset Date Resolution Status Splenomegaly chronic [facility] Work Phone: Evaluation noteNo assessment information available [facility] Work Phone: Evaluation note* Diagnosis Plantar fascial fibromatosis documented [facility] this encounter [facility]* Diagnosis Onset Date Resolution Status Acute sinusitis, unspecified acute Contact with or exposure to other viral diseases acute [facility] Work Phone: History and physical note Author Esther Gaspar [facility] Note Date/Time November 17, 2024 10:37 pm [facility] Medical Records Department [address] [place] [address] H&P Exam - Hospitalist 11/17/24 2213 MR#: [id number] Acct: [id number] Name: YUMIKO GROSSMAN Rep #:[id number] : 1965 59 From: Esther Gsapar MD PCP: Dr. Denise Cheng MD Status:ADM IN Location: [address] HPI - General General Date of Admission: 11/17/24 Date of Service: 11/17/24 Chief Complaint: Chest pain HPI Narrative The patient is a 59 y/o F w/ PMHx: Anxiety and Depression/ADHD, Chronic migraines, OA who presents to the [facility] ED on 11/17/2024 withhistory of onset [...] 1, cyclobenzaprine 10 mg p.o. x 1. [facility] Medical History ADHD Anxiety and depression Hx [...] 40.4 L, Lymph % (Auto) 46.6 H, Sunflower % (Auto) 10.2 H, Eos % (Auto) [...] 19:18 IMPRESSION: NO ACUTE FINDINGS. Reading Location: [facility] Chest CTA 11/17/24 20:36 IMPRESSION: 1. No acute pulmonary embolism. 2. Ectasia of the main pulmonary artery and enlargement of the distal pulmonary arteries, which can be seen with pulmonary hypertension. 3. Trace left pleural effusion. Reading Location: [facility] Assessment & Plan Assessment/Plan (1) Chest pain: PLAN: Plan The patient is a 59 y/o F w/ PMHx: Anxiety and Depression/ADHD, Chronic migraines, OA who presents to the [facility] ED on 11/17/2024 withhistory of onset [...] prophylaxis: Lovenox. Charges/Coding Visit Charges Inpatient E&M: 14512 Init Hosp L3 11/17/247 <Electronically signed by Esther Gaspar MD> Cosigner Signature (if applicable): CC: Dr. Esther Gaspar MD; Dr. Denise Cheng MD~ Signed [facility] Work Phone: reason for referral (narrative)* Diagnostic Procedure Only (Routine) - Closed Specialty Diagnoses / Procedures Referred By Contac t Referred To Contact XR IMAGING Diagnoses Plantar fascial fibromatosis Procedures XR FOOT GENERAL 3V AP/LAT/OBL BILATERAL RADEX FOOT COMPLETE MINIMUM 3 VIEWS Jared Stewart [address] [facility] [place] [address] [place] [address] Referral ID Status Reason Start Date Expiration Date V isits Requested Visits Authorized [id number] Closed Auto-Generate d Referral 01/30/2023 02/29/2024 [address] [facility] for referral (narrative)No reason for referral information availableWSt. [facility] Work Phone: reason for visit Narrative* Diagnostic Procedure Only (Routine) - Closed Specialty Diagnoses / Procedures Referred By Contac t Referred To Contact XR IMAGING Diagnoses Plantar fascial fibromatosis Procedures XR FOOT GENERAL 3V AP/LAT/OBL BILATERAL RADEX FOOT COMPLETE MINIMUM 3 VIEWS Jared Stewart [address] [place] [address] [place] [address] Referral ID Status Reason Start Date Expiration Date V isits Requested Visits Authorized [id number] Closed Auto-Generate d Referral 01/30/2023 02/29/2024 1 1 [facility] Summary Purpose Family History No Family History Records Found Relationship Condition Age at Onset Recorded Date/T meaghan mother Disorder of thyroid Unknown Advance Directives No Advanced Directives Records Found Advance Directive Response Recorded Date/ Time Living Will No December 05, 2019 11:10am Power of [employer] No December 04 0 11:10am Advance Directive Response Recorded Date/ Time Living Will No December 05, 2019 10:10am Power of [employer] No December 04 0 10:10am Advance Directive Response Recorded Date/ Time Do you have a Healthcare Power of [employer]? No November 17, 2024 4:45pm Advance Directive Response Recorded Date/ Time Do you have a Healthcare Power of [employer]? No November 17, 2024 10:43pm Chief Complaint and Reason for Visit Chief [...] Chest pain November 17, 2024 10:34 pm Chief Complaint Admit Date Urinary tract infection July 28 12:44pm COUGH/ST/FEVER/CONGESTION August 10 9:22am SCREENING September 03, 2024 7:0 5am PRE OP October 01, 2024 7:1 3am PRE OP October 01, 2024 7:2 3am CHEST PAIN November 17, 2024 10:15 pm CHEST PAIN November 17, 2024 10:34 pm CHEST PAIN November 18, 2024 10:46 am Reason for Visit Admit Date Urinary tract infection July 28 12:44pm Viral URI with cough August 10, 2024 9:2 2am Chest pain November 17, 2024 10:15 pm Additional Source Comments INFORMATION SOURCE (unrecogn ized section and content) DATE CREATED AUTHOR 12/04/2017 [facility] DATE CREATED AUTHOR AUTHOR'S ORGANIZ ATION 02/05/2023 [facility] DATE CREATED AUTHOR AUTHOR'S ORGANIZ ATION [facility]/29/20[facility] Care Teams (unrecognized sec tion and [...] MD Attending Provider, Referrin g Provider Active Remote Inpatient Coder Relationship Specialty Start Date End Date Denise Cheng MD PCP - General Family Medicine 06/27/13 Team Status: Inactive Member Role Status Dates Dr. Denise Cheng MD Primary Care Provider, Referring P rolee Active Ashutosh Escalona PA, PA Attending Provider Active Team Status: Active Member Role Status Dates Dr. Denise Cheng MD Primary Care Provider, Attending P yamileth Active Team Status: Inactive Member Role Status Dates Dr. Denise Cheng MD Primary Care Provider Active Ciera Granados NP-C Attending Provider, Referr ing Provider Active Team Status: Inactive Member Role Status Dates Dr. Denise Cheng MD Primary Care Provider, Attending P yamileth Active Team Status: Active Member Role Status Dates Dr. Denise Cheng MD Primary Care Provider Active Team Status: Inactive Member Role Status Dates Dr. Denise Cheng MD Primary Care Provider Active Start: July 28, 2024 End: July 28, 2024 Dr. Denise Cheng MD Referring Provider Active St art: July 28, 2024 End: July 28, 2024 Adilson Cordova NP, TAXIMETER REPAIRER-C Attending Provider Active S tart: July 28, 2024 End: July 28, 2024 Team Status: Inactive Member Role Status Dates Dr. Denise Cheng MD Primary Care Provider Active Start: July 29, 2024 End: July 29, 2024 Adilson Cordova NP, TAXIMETER REPAIRER-C Attending Provider Active S tart: July 29, 2024 End: July 29, 2024 Team Status: Inactive Member Role Status Dates Dr. Denise Cheng MD Primary Care Provider Active Start: August 10, 2024 End: August 10, 2024 Dr. Denise Cheng MD Referring Provider Active St art: August 10, 2024 End: August 10, 2024 DAIN JerezC Attending Provider Active Start: August 10, 2024 [...] Provider Active St art: November 17, 2024 Team Status: Inactive Member Role Status Dates Dr. Denise Cheng MD Primary Care Provider Active Start: November 17, 2024 End: November 18, 2024 Dr. Natalia Felix DO Emergency Provider Active Start: November 17, 2024 End: November 18, 2024 Dr. Esther Gaspar MD Admit Provider Active St art: November 17, 2024 End: November 18, 2024 Dr. Esther Gaspar MD Other Provider Active St art: November 17, 2024 End: November 18, 2024 Dr. Barby Louise MD Attending Provider Active Start: November 17, 2024 End: November 18, 2024 Team Status: Active Member Role Status Dates Dr. Denise Cheng MD Primary Care Provider Active Start: November 18, 2024 Dr. Natalia Felix DO Emergency Provider Active Start: November 18, 2024 Dr. Esther Gaspar MD Admit Provider Active St art: November 18, 2024 Dr. Esther Gaspar MD Other Provider Active St art: November 18, 2024 Dr. Barby Louise MD Other Provider Active St art: November 18, 2024 Dr. Camila Monet MD Attending Provider Active Start: November 18, 2024 Source Comments (unrecognize d section and content) In the event this informatio n is protected by the Federal Confidentiality of Alcohol and Drug Abuse Patient Records regulations: The Federal rules restrict any use of the information to criminally investigate or prosecute any alcohol or drug abuse patient.[facility] FOR RECORDS PERTAINING TO PATIENTS WHO [...] BE BASED ON THE PRIMARY CLINICAL RECORDS. [employer] provides no warranty or guarantee of the accuracy or completeness of information in this document.
== END | disposition home or self-care (01) ==
LOC: US 07:16
PROVIDERS: PCP Family Medicine; Referring Provider Family Medicine; Visit Provider Family Medicine
DX: R10.819 Abdominal tenderness, unspecified site (principal)
CPT/HCPCS: 76700; A4216; J2785

== ENCOUNTER 2024-12-09 07:48 | Day surgery (SDC) | payer BC, SELFPAY ==
--- NOTE | 2024-12-05 15:26 | PAT.ANE_ITS ---
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 When Was Last Pacemaker Check QUESTION #4 FULL TEXT: You/Your Family Experience fever (hyperthermia) with Anesthesia Last Oral Intake Last Oral intake: Last Oral Intake NPO since Meds taken in AM with sips of water? 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 Female Yes 12/05/24 08:48 HX of Motion Sickness No 12/05/24 08:48 HX of N/V After Surgery Yes 12/05/24 08:48 Non-Smoker Yes 12/05/24 08:48 Duration of Surgery greater No 12/05/24 08:48 than 60 minutes Number of Risk Factors 3 12/05/24 08:48 PONV Score Moderate Risk 12/05/24 08:48 Height & Weight Height & Weight: Anesthesia: Height & Weight Height 5 ft 9 in 11/17/24 22:43 Respiratory Assessment Respiratory Assessment - aircraft maintenance instructor: Respiratory Tract Infection Hx - 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 Has anyone observed you stop No 12/05/24 08:48 breathing during sleep? STOP Results Negative 12/05/24 08:48 QUESTION #5 FULL TEXT : Do you snore loudly (louder than talking or can be heard through closed doors)? 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 Specify any problems Hx of Preganancy in last 3 No 12/05/24 08:48 Months Nurse Filling Out Transfusion [email or web address] 12/05/24 08:48 & Questions: Date: 12/05/24 12/05/24 08:48 Time: 08:50 12/05/24 08:48 Patient unable to answer at this time (ie. 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 Hx Now Gestational Age (in weeks): EDC: Hx Hx Para Hx Section SAB PFSH Medical History (Updated 12/05/24 @ 08:53 by Sujit Aragon) Alcohol use Fatty liver Non-smoker History of echocardiogram History of stress test ADHD Anxiety and depression Hx of migraines Splenomegaly Easy bruising Arthritis Home Medications ?Medication ?Instructions ?Recorded ?Last Taken ?Type methylphenidate HCl 27 mg 36 mg PO DAILY ADD 10/01/18 Unknown History tablet,extended release 24 hr trazodone 100 mg tablet 100 mg PO QHS sleep 10/01/18 Unknown History erenumab-aooe 140 mg/mL 140 mg SQ QMONTH migraines 0 12/05/19 Unknown History subcutaneous auto-injector ascorbate calcium (vitamin C) 500 500 mg PO DAILY jessica min 09/28/21 Unknown History mg tablet vitamin with calcium 1 tab PO DAILY 09/28/21 Unknown History no.72-iron 27 mg-folic acid 1 mg tablet duloxetine 40 mg capsule,delayed 40 mg PO DAILY mental health 10/06/21 Unknown History release magnesium oxide 500 mg capsule 1,000 mg PO DAILY suppl ement 10/06/21 Unknown History vitamin B complex 1 tab PO DAILY vitamin 10/06 Unknown History rizatriptan 10 mg tablet 10 mg PO .COMPLEX PRN migrai ne 01/27/23 Unknown History headache lansoprazole 15 mg capsule,delayed 20 mg PO DAILY refl ux 11/17/24 Unknown History release (Prevacid 24Hr) lidocaine 1.8 % topical patch 1 patch topical DAILY #3 0 ea 11/18/24 Unknown Rx Allergy/AdvReac Type Severity Reaction Status Date / Time amoxicillin Allergy Hives Verified 12/05/24 08:46 Sulfa (Sulfonamide Allergy Hives Verified 12/05/24 08:46 Antibiotics) zolmitriptan (From Zomig) Allergy ; Verified 12/05/24 08:46 verapamil AdvReac lightheaded Verified 12/05/24 08:46 dizzy Family History Mother Thyroid disorder Father , young in the . No medical history. No problems noted. Surgical History (Updated 12/05/24 @ 08:53 by Sujit Aragon) H/O right knee surgery History of hysterectomy History of umbilical hernia repair H/O section History of carpal tunnel repair Hx of tonsillectomy Social History household members: family Smoking Status: Never smoker alcohol intake: current alcohol intake frequency: holidays/special occasions only Alcohol type: wine substance use type: does not use caffeine: No what type of physical activity do you participate in: none seatbelt use: always do you feel safe at home: Yes Audit: Pertinent Findings Pertinent Findings EKG Perinent findings: November 17, 2024. Normal sinus rhythm. Stress test pertinent findings: November 18, 2024. EF is 80%. Rest and stress nuclear imaging demonstrate uniform tracer uptake and myocardial perfusion. Echo (EF%) pertinent findings: November 18, 2024. EF of 65%. No aortic stenosis. Additional pertinent findings: Patient had a knee arthroscopy on November 20, 2024 with anesthesia and had no complications. Recommendation Anesthesia Recommendation Anesthesia recommendation: OPTIMIZED for anesthesia (Patient had a knee art hroscopy on November 20, 2024 with anesthesia and had no complications.)
[2024-12-09] VITALS (9 sets, daily range): BP systolic 92–111; BP diastolic 68–77; PULSE 75–86; RESP 16; TEMP 36.3–36.6; O2SAT 93–98; BMI 27.0
[2024-12-09] MEDS: Lactated Ringers 1,000 ML 15 ML IV (08:19)
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
--- NOTE | 2024-12-09 08:59 | PCM.PRE.AN2 ---
ASA Classification* ASA Classification ASA Classification: 2 Assessment & Plan Anesthesia* Anesthesia Assessment Anesthesia Assessment: Discussed sedation and/or anesthesia options, risks, benefits, and alternatives with patient/parents/legal guardian/POA. Questions invited. The patient/parents/legal guardian/POA seems to understand and agrees to proceed with anesthesia plan. Reviewed the physical assessment, medical history, allergy history and patient home medications list prior to surgery/procedure/anesthetic and documented any changes. Performed airway and anesthesia risk assessments. Anesthesia Type Anesthesia Type: MAC History Source History Obtained from:: Patient and Chart Anesthesia Focused Assessment* Temperature: 97.4 F Pulse Rate: 86 Blood Pressure: 111/76 Respiratory Rate: 16 Pulse Ox: 93 Oxygen Delivery Method: Room Air Airway Assessment Mouth opens: >3 cm Mallampati Score: I Teeth Condition: Caps/Crowns (Patient has a crown. It is tight.) Neck Range of motion (ROM): Full ROM Labs Anesthesia Preop lab: CBC WBC 6.7 K/mm3 (4.4-11.0) 11/18/24 05:56 11/18/24 RBC 3.91 M/mm3 (4.2-5.4) L 11/18/24 05:56 11/18/24 Hgb 12.3 g/dL (12.0-15.0) 11/18/24 05:56 11/18/24 Hct 37.1 % (37-47) 11/18/24 05:56 11/18/24 Plt Count 233 K/mm3 (150-450) 11/18/24 05:56 11/18/24 CHEMISTRY Potassium 3.9 mmol/L (3.3-5.1) 11/18/24 05:56 11/18/24 Sodium 142 mmol/L (133-145) 11/18/24 05:56 11/18/24 Magnesium 2.0 mg/dL (1.5-2.2) 11/17/24 21:20 11/17/24 BUN 13 mg/dL (4-19) 11/18/24 05:56 11/18/24 Creatinine 0.68 mg/dL (0.70-1.20) L 11/18/24 05:56 11/18/24 Glucose 93 mg/dL (70-99) 11/18/24 05:56 11/18/24 TSH 2.600 uIU/mL (0.300-4.200) 10/31/24 08:11 10/31/24 COAG PT 12.4 SECONDS (11.7-14.9) 10/06/21 14:50 10/06/21 HCG, Quant < 1 mIU/mL (<9 non-preg) 10/08/13 15:33 10/08/13 Pre-Assessment Diagnosis/Proposed Procedure Planned Operative Procedure(s): COLONOSCOPY Anesthesia History 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 When Was Last Pacemaker Check QUESTION #4 FULL TEXT: You/Your Family Experience fever (hyperthermia) with Anesthesia Last Oral Intake Last Oral intake: Last Oral Intake NPO since 23:00 12/09/24 08:09 Meds taken in AM with sips of No 12/09/24 08:09 water? Meds patient instructed to take am of surgery PONV PONV - maintenance mechanic helper: PONV - maintenance mechanic helper Female Yes 12/05/24 08:48 HX of Motion Sickness No 12/05/24 08:48 HX of N/V After Surgery Yes 12/05/24 08:48 Non-Smoker Yes 12/05/24 08:48 Duration of Surgery greater No 12/05/24 08:48 than 60 minutes Number of Risk Factors 3 12/05/24 08:48 PONV Score Moderate Risk 12/05/24 08:48 Height & Weight Height & Weight: Anesthesia: Height & Weight Height 5 ft 9 in 12/09/24 08:09 Weight: 83 kg 12/09/24 08:09 Body Mass Index (BMI) 27.0 12/09/24 08:09 Respiratory Assessment Respiratory Assessment - maintenance mechanic helper: Respiratory Tract Infection Hx - maintenance mechanic helper Hx Respiratory Tract Infection No 12/09/24 08:33 STOP Sleep Apnea STOP Sleep Apnea - maintenance mechanic helper: STOP Sleep Apnea - maintenance mechanic helper Hx Hypertension No 12/09/24 08:33 Hx Sleep Apnea No 12/09/24 08:33 CPAP BIPAP Do you snore loudly (louder No 12/09/24 08:33 than talking or can be heard Do you often feel tired/ No 12/09/24 08:33 fatigued/ sleepy during daytime? Has anyone observed you stop No 12/09/24 08:33 breathing during sleep? STOP Results Negative 12/09/24 08:42 QUESTION #5 FULL TEXT : Do you snore loudly (louder than talking or can be heard through closed doors)? 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 Specify any problems Hx of Preganancy in last 3 No 12/05/24 08:48 Months Nurse Filling Out Transfusion [email or web address] 12/05/24 08:48 & Questions: Date: 12/05/24 12/05/24 08:48 Time: 08:50 12/05/24 08:48 Patient unable to answer at this time (ie. confused, unrespo /Reproduction History /Reproductive History - maintenance mechanic helper: /Reproductive Hx- maintenance mechanic helper Hx Now Gestational Age (in weeks): EDC: Hx Hx Para Hx Section SAB Active Medications Active Medications: Current Medications Generic Name Dose Route Start Last Admin Trade Name Freq PRN Reason Stop Dose Admin Lactated Ringer's 1,000 mls @ 15 mls/hr 12/09/24 08:00 12/09/24 08:19 IV 15 mls/hr .Q48H JOY Administration PFSH Medical History Alcohol use Fatty liver Non-smoker History of echocardiogram History of stress test ADHD Anxiety and depression Hx of migraines Splenomegaly Easy bruising Arthritis Home Medications ?Medication ?Instructions ?Recorded ?Last Taken ?Type methylphenidate HCl 27 mg 36 mg PO DAILY ADD 10/01/18 Unknown History tablet,extended release 24 hr trazodone 100 mg tablet 100 mg PO QHS sleep 10/01/18 Unknown History erenumab-aooe 140 mg/mL 140 mg SQ QMONTH migraines 12/05/19 Unknown History subcutaneous auto-injector ascorbate calcium (vitamin C) 500 500 mg PO DAILY vitamin 09/28/21 Unknown History mg tablet vitamin with calcium 1 tab PO DAILY 09/28/21 Unknown History no.72-iron 27 mg-folic acid 1 mg tablet duloxetine 40 mg capsule,delayed 40 mg PO DAILY mental health 10/06/21 Unknown History release magnesium oxide 500 mg capsule 1,000 mg PO DAILY supplement 10/06/21 Unknown History vitamin B complex 1 tab PO DAILY vitamin 10/06/21 Unknown History rizatriptan 10 mg tablet 10 mg PO .COMPLEX PRN migraine 01/27/23 Unknown History headache lansoprazole 15 mg capsule,delayed 20 mg PO DAILY reflux 11/17/24 Unknown History release (Prevacid 24Hr) lidocaine 1.8 % topical patch 1 patch topical DAILY #30 ea 11/18/24 Unknown Rx Allergy/AdvReac Type Severity Reaction Status Date / Time amoxicillin Allergy Hives Verified 12/09/24 08:09 Sulfa (Sulfonamide Allergy Hives Verified 12/09/24 08:09 Antibiotics) zolmitriptan (From Zomig) Allergy ; Verified 12/09/24 08:09 verapamil AdvReac lightheaded Verified 12/09/24 08:09 dizzy Family History Mother Thyroid disorder Father , young in the . No medical history. No problems noted. Surgical History H/O right knee surgery History of hysterectomy History of umbilical hernia repair H/O section History of carpal tunnel repair Hx of tonsillectomy Social History household members: family Smoking Status: Never smoker alcohol intake: current alcohol intake frequency: holidays/special occasions only Alcohol type: wine substance use type: does not use caffeine: No what type of physical activity do you participate in: none seatbelt use: always do you feel safe at home: Yes Review of Systems (Anesthesia) ROS Narrative System reviewed and no additional complaints, except as documented.
--- NOTE | 2024-12-09 10:03 | OP.COLON_ITS ---
Patient Name: Yumiko Singh Procedure Date: 12/09/2024 9:30 AM Date of : 1965 Age: 59 Procedure: Colonoscopy Indications: High risk colon cancer surveillance: Personal history of colonic polyps Providers: Shelia Dominguez MD Referring MD: Kev Cheng Medicines: Monitored Anesthesia Care Patient Profile: This is a 59 year old female. Last Colonoscopy: December 2019. Complications: No immediate complications. Procedure: Pre-Anesthesia Assessment: - Prior to the procedure, a History and Physical was performed, and patient medications and allergies were reviewed. The patient's tolerance of previous anesthesia was also reviewed. The risks and benefits of the procedure and the sedation options and risks were discussed with the patient. All questions were answered, and informed consent was obtained. Prior Anticoagulants: The patient has taken no anticoagulant or antiplatelet agents. ASA Grade Assessment: Per anesthesia. After reviewing the risks and benefits, the patient was deemed in satisfactory condition to undergo the procedure. After I obtained informed consent, the scope was passed under direct vision. Throughout the procedure, the patient's blood pressure, pulse, and oxygen saturations were monitored continuously. The Colonoscope was introduced through the anus and advanced to the cecum, identified by the appendiceal orifice, ileocecal valve and palpation. The colonoscopy was performed without difficulty. The patient tolerated the procedure well. The quality of the bowel preparation was good. Scope In: 9:39:16 AM Scope Withdrawal Time 0 hours 11 minutes 1 second Scope Out: 9:58:13 AM Total Procedure Duration Time 0 hours 18 minutes 57 seconds Findings: The perianal and digital rectal examinations were normal. The entire examined colon appeared normal on direct and retroflexion views. Impression: - The entire examined colon is normal on direct and retroflexion views. - No specimens collected. Recommendation: - Discharge patient to home. - Resume previous diet. - Continue present medications. - Repeat colonoscopy in 10 years for screening purposes. Procedure Code(s): --- Professional --- 53819, PT, Colonoscopy, flexible; diagnostic, including collection of specimen(s) by brushing or washing, when performed (separate procedure) Diagnosis Code(s): --- Professional --- Z86.010, Personal history of colonic polyps CPT copyright 2021 [employer]. All rights reserved. The codes documented in this report are preliminary and upon portainer operator review may be revised to meet current compliance requirements. MD Shelia Garrett MD 12/09/2024 10:03:34 AM This report has been signed electronically. Number of Addenda: 0 Note Initiated On: 12/09/2024 9:30 AM
--- NOTE | 2024-12-09 10:04 | OP.CCLET_ITS ---
12/09/2024 Kev Cheng [address] [facility] [address] [place] [address] Re : Colonoscopy procedure for Yumiko Singh Dear Dr. Cheng This procedure was performed on Monday, December 09, 2024. My impressions and recommendations are as follows: Impressions : - The entire examined colon is normal on direct and retroflexion views. - No specimens collected. Recommendations : - Discharge patient to home. - Resume previous diet. - Continue present medications. - Repeat colonoscopy in 10 years for screening purposes. My findings are described in the full procedure note, which is enclosed. If I can be of further assistance, please feel free to contact me at Doctor phone number(s): , Work: . Sincerely, MD Shelia Garrett MD 12/09/2024 10:03:34 AM This report has been signed electronically.
--- NOTE | 2024-12-09 10:05 | PCM.POST.ANE ---
Anesthesia: Postop Eval I Current Vital Signs Temperature: 97.9 F Pulse Rate: 79 Blood Pressure: 93/68 Respiratory Rate: 16 Pulse Ox: 95 Oxygen Delivery Method: Room Air Assessment Airway patent: Yes Spontaneous unlabored respirations: Yes Mental status: Awake and Calm nausea: No Vomiting: No Anesthesia Complication: No Fluid Hydration Crystalloid volume administer (ml): 200 Total IV fluid infused: 200 Progress Note Anesthesia document: Postop Eval 1 completed: Yes
--- NOTE | 2024-12-09 10:54 | POSTOPAN2_ITS ---
Anesthesia Postop Eval I Sum Postop Eval Completion status Anesthesia document: Postop Eval 1 completed: Yes Anesthesia Postop Eval I Summary Anesthesia Postop Eval I Summary: Anesthesia Postop Eval I: Assessment Summary Airway patent Yes 12/09/24 10:06 [email or web address] [email or web address] Spontaneous unlabored Yes 12/09/24 10:06 TIPPLE [email or web address] respirations Mental status Awake,Calm 12/09/24 10:06 TIPPLE [email or web address] nausea No 12/09/24 10:06 TIPPLE [email or web address] Vomiting No 12/09/24 10:06 TIPPLE [email or web address] Anesthesia Postop Eval I: Fluid Summary Crystalloid volume administer 200 12/09/24 10:06 TIPPLE [email or web address] (ml) Colloids volume administered ( ml) Blood Product volume administered (ml) Total IV fluid infused 200 12/09/24 10:06 [email or web address] [email or web address] Anesthesia Postop Eval I: Summary Notes Anesthesia Complication No 12/09/24 10:06 [email or web address] [email or web address] Anesthesia Complication Comment: Post-operative progress note Anesthesia: Postop Eval II Evaluation Mental status: Awake Pain Level: 0 nausea: No Vomiting: No
--- NOTE | 2024-12-09 10:54 | PCM.POSTANE2 ---
Anesthesia Postop Eval I Sum Postop Eval Completion status Anesthesia document: Postop Eval 1 completed: Yes Anesthesia Postop Eval I Summary Anesthesia Postop Eval I Summary: Anesthesia Postop Eval I: Assessment Summary Airway patent Yes 12/09/24 10:06 COMMUNITY CASE [email or web address] Spontaneous unlabored Yes 12/09/24 10:06 COMMUNITY CASE [email or web address] respirations Mental status Awake,Calm 12/09/24 10:06 COMMUNITY [email or web address] [email or web address] nausea No 12/09/24 10:06 COMMUNITY CASE [email or web address] Vomiting No 12/09/24 10:06 COMMUNITY CASE [email or web address] Anesthesia Postop Eval I: Fluid Summary Crystalloid volume administer 200 12/09/24 10:06 COMMUNITY [email or web address] (ml) Colloids volume administered ( ml) Blood Product volume administered (ml) Total IV fluid infused 200 12/09/24 10:06 COMMUNITY CASE [email or web address] Anesthesia Postop Eval I: Summary Notes Anesthesia Complication No 12/09/24 10:06 COMMUNITY CASE [email or web address] Anesthesia Complication Comment: Post-operative progress note Anesthesia: Postop Eval II Evaluation Mental status: Awake Pain Level: 0 nausea: No Vomiting: No
== END 2024-12-09 10:38 | disposition home or self-care (01) ==
LOC: EN 07:49 → AC 07:50
PROVIDERS: PCP Family Medicine; Referring Provider Family Medicine; Visit Provider Surgery
PROC: 0DJD8ZZ Inspection of Lower Intestinal Tract, Via Natural or Artificial Opening Endoscopic (ICD-10-PCS; CPT 45378; principal; 2024-12-09 08:55)
DX: Z12.11 Encounter for screening for malignant neoplasm of colon (principal); Z90.710 Acquired absence of both cervix and uterus; Z86.0100 Personal history of colon polyps, unspecified; F90.9 Attention-deficit hyperactivity disorder, unspecified type; F41.9 Anxiety disorder, unspecified; F32.A Depression, unspecified
CPT/HCPCS: 45378; J2405

== ENCOUNTER → 2024-12-12 | Outpatient (CLI) | payer BC, SELFPAY | END | disposition home or self-care (01) | LOC: US 07:56 | PROVIDERS: PCP Family Medicine; Referring Provider Family Medicine; Visit Provider Family Medicine | DX: K76.0 Fatty (change of) liver, not elsewhere classified (principal) | CPT/HCPCS: 76981 ==